=== PATIENT | female | born 1980 | race Caucasian/White ===

== ENCOUNTER 2022-12-04 08:43 | Outpatient (OUT) | payer BC, SELFPAY ==
--- NOTE | 2022-12-04 08:57 | MR_ITS ---
[address] [address] Patient Name: CHAPARRITA BOWERS MRN: [id number] date: 1980 Sex: F Assigned Patient Location: MRI Current Patient Location: MRI Accession/Order Number: [id number] Exam Date: 12/04/2022 09:30 Report Date: 12/04/2022 10:16 At the request of: BERNICE LIM Procedure: MR head/brain wo con EXAM: MRI of the brain without IV contrast. REASON FOR EXAM: Migraine Headache G43.909 COMPARISON: None FINDINGS: No intracranial masses. No abnormal restricted diffusion or evidence of evolving infarct. No evidence of intracranial hemorrhage. No hydrocephalus. No significant abnormal parenchymal signal abnormalities. Partial empty sella. Paranasal sinuses and mastoid air cells are clear. Remainder unremarkable. IMPRESSION: 1. Partial empty sella. 2. Otherwise, normal appearance of the brain. Electronically authenticated by: RAGHU AIKEN Date: 12/04/2022 10:16
== END 2022-12-04 08:44 ==
LOC: MRI 08:48
PROVIDERS: PCP Nurse Practitioner; Visit Provider Nurse Practitioner
DX: G43.909 Migraine, unspecified, not intractable, without status migrainosus (principal)
CPT/HCPCS: 70551

== ENCOUNTER 2023-09-15 21:00 | Outpatient (REF) | payer OTHER, SELFPAY ==
[2023-09-20 10:07] LABS: Age Gdln ACOG Testing Note (.); HPV Aptima Negative (Negative); IGP, Aptima HPV, rfx 16/18,45 Note (.)
== END 2023-09-15 21:01 | disposition home or self-care (01) ==
LOC: LAB 21:00
PROVIDERS: PCP Nurse Practitioner; Visit Provider Obstetrics & Gynecology
DX: Z01.419 Encounter for gynecological examination (general) (routine) without abnormal findings (principal)
CPT/HCPCS: 87624; G0145

== ENCOUNTER 2023-10-23 11:40 | Outpatient (OUT) | payer BC, SELFPAY ==
--- OUTSIDE RECORDS SUMMARY | 2023-10-23 11:42 | XMS_ITS | CCD ---
Author Organization [facility] Care Team Providers Care Lead Java [id number] Developer Name Role Phone AICHHOLZ, CONSUMER LOAN OFFICER BERNICE Primary Care Unavailable ARIA, NISH Consulting Unavailable ARIA, NISH Attending Unavailable ARIA, NISH Admitting Unavailable DEMARIO ., LU Attending Unavailable CURTISER, DR TIM Dunaway Consulting Unavailable AICHHOLZ, CONSUMER LOAN OFFICER BERNICE Primary Care Unavailable DEMARIO ., LU Admitting Unavailable DEMARIO ., LU Consulting Unavailable AICHHOLZ, CONSUMER LOAN OFFICER BERNICE Attending Unavailable AICHHOLZ, CONSUMER LOAN OFFICER BERNICE Admitting Unavailable AICHHOLZ, CONSUMER LOAN OFFICER BERNICE Primary Care Unavailable AICHHOLZ, CONSUMER LOAN OFFICER BERNICE Consulting Unavailable AICHHOLZ, CONSUMER LOAN OFFICER BERNICE Primary Care Unavailable ES ., DR OLMEDO Consulting Unavailable ES ., DR OLMEDO Attending Unavailable ES ., DR OLMEDO Admitting Unavailable AICHHOLZ, CONSUMER LOAN OFFICER BERNICE Primary Care Unavailable ES ., DR OLMEDO Admitting Unavailable ES ., DR OLMEDO Consulting Unavailable ES ., DR OLMEDO Attending Unavailable AICHHOLZ, CONSUMER LOAN OFFICER BERNICE Primary Care Unavailable ES ., DR OLMEDO Admitting Unavailable ES ., DR OLMEDO Consulting Unavailable ES ., DR OLMEDO Attending Unavailable AICHHOLZ, CONSUMER LOAN OFFICER BERNICE Consulting Unavailable AICHHOLZ, CONSUMER LOAN OFFICER BERNICE Attending Unavailable AICHHOLZ, CONSUMER LOAN OFFICER BERNICE Admitting Unavailable AICHHOLZ, CONSUMER LOAN OFFICER BERNICE Primary Care Unavailable ZIEBER, DR TIM Dunaway Consulting Unavailable AICHHOLZ, CONSUMER LOAN OFFICER BERNICE Consulting Unavailable AICHHOLZ, CONSUMER LOAN OFFICER BERNICE Attending Unavailable AICHHOLZ, CONSUMER LOAN OFFICER BERNICE Admitting Unavailable AICHHOLZ, CONSUMER LOAN OFFICER BERNICE Primary Care Unavailable AICHHOLZ, CONSUMER LOAN OFFICER BERNICE Attending Unavailable AICHHOLZ, CONSUMER LOAN OFFICER BERNICE Admitting Unavailable AICHHOLZ, CONSUMER LOAN OFFICER BERNICE Primary Care Unavailable AICHHOLZ, CONSUMER LOAN OFFICER BERNICE Consulting Unavailable AICHHOLZ, CONSUMER LOAN OFFICER BERNICE Attending Unavailable AICHHOLZ, CONSUMER LOAN OFFICER BERNICE Admitting Unavailable AICHHOLZ, CONSUMER LOAN OFFICER BERNICE Primary Care Unavailable AICHHOLZ, CONSUMER LOAN OFFICER BERNICE Consulting Unavailable AICHHOLZ, CONSUMER LOAN OFFICER BERNICE Primary Care Unavailable ES ., DR OLMEDO Admitting Unavailable ES ., DR OLMEDO Consulting Unavailable ES ., DR OLMEDO Attending Unavailable SANTINO CAZARES Consulting Unavailable KWAN II, DESHAUN Consulting Unavailable NICOLE ESCOTO Consulting Unavailable CARINA, BERNICE Attending Unavailable HONORIO SHANE Attending Unavailable Allergies Allergy Classification Reported Allergen(s) Allergy Type Date of Onset Reaction(s) Facility (1 source) Bee pollen Drug allergy (disorder) [facility] (1 source) Penicillins Drug allergy (disorder) 5 [facility] (1 source) Sulfamethoxazole / Trimethoprim Drug Allergy 5 [facility] Problems Active Problems Problem Classification Problem Date Documented Date Episodic/Chronic Abdominal pain (5 sources) Pelvic and perineal pain; Translations: [Unspecified abdominal pain] Onset: 04-30-2022 Episodic Essential hypertension (4 sources) Essential (primary) hypertension; Translations: [ESSENTIAL PRIMARY HYPERTENSION] Onset: 11-27-2022 Chronic Heart valve disorders (1 source) Rheumatic tricuspid insufficiency; Translations: [RHEUMATIC TRICUSPID INSUFFICIENCY] Onset: 12-01-2022 Chronic Inflammatory diseases of female pelvic organs (1 source) Inflammatory disease of cervix uteri; Translations: [INFLAMMATORY DISEASE CERVIX UTERI] Onset: 09-23-2022 Episodic Menstrual disorders (6 sources) Excessive and frequent menstruation with regular cycle; Translations: [Dysmenorrhea, unspecified] Onset: 09-11-2022 Chronic Nonspecific chest pain (1 source) Chest pain, unspecified; Translations: [CHEST PAIN UNSPECIFIED] Onset: 12-01-2022 Episodic Other female genital disorders (1 source) Unspecified dyspareunia; Translations: [UNSPECIFIED DYSPAREUNIA] Onset: 09-23-2022 Chronic Other female genital disorders (1 source) Dysplasia of cervix uteri, unspecified; Translations: [DYSPLASIA CERVIX UTERI UNSPECIFIED] Onset: 09-23-2022 Episodic Other female genital disorders (1 source) Other specified noninflammatory disorders of vagina; Translations: [OTH SPEC NONINFLAMMATORY D/O VAGINA] Onset: 09-12-2022 Episodic Other nutritional; endocrine; and metabolic disorders (1 source) Morbid (severe) obesity due to excess calories; Translations: [MORBID SEVERE OBES D/T EXCESS MISSAEL] Onset: 01-14-2022 Chronic Other nutritional; endocrine; and metabolic disorders (1 source) Body mass index (BMI) 40.0-44.9, adult; Translations: [BODY MASS INDEX BMI 40.0-44.9 ADULT] Onset: 01-14-2022 Chronic Other skin disorders (1 source) Changes in skin texture; Translations: [CHANGES IN SKIN TEXTURE] Onset: 09-23-2022 Episodic Prolapse of female genital organs (1 source) Female genital prolapse, unspecified; Translations: [FEMALE GENITAL PROLAPSE UNSPECIFIED] Onset: 09-12-2022 Chronic Residual codes; unclassified (4 sources) Obstructive sleep apnea (adult) (pediatric); Translations: [OBSTRUCTIVE SLEEP APNEA] Onset: 11-17-2022 Chronic Residual codes; unclassified (1 source) Localized edema; Translations: [LOCALIZED EDEMA] Onset: 12-01-2022 Episodic Past or Other Problems Problem Classification Problem Date Documented Da te Episodic/Chronic Administrative/social admission (4 sources) Encounter for pre-employment examination; Translations: [ENCOUNTER FOR PRE-EMPLOYMENT EXAM] Onset: 07-08-2022 Episodic Bacterial infection; unspecified site (1 source) Personal history of Methicillin resistant Staphylococcus aureus infection; Translations: [PERS HX METHICILLIN RSIST STAPH INF] Onset: 05-04-2022 Episodic Immunizations and screening for infectious disease (1 source) Encounter for screening for human papillomavirus (HPV); Translations: [ENC SCREENING HUMAN PAPILLOMAVIRUS] Onset: 05-23-2022 Episodic Other aftercare (1 source) Other skilled nursing (current) drug therapy; Translations: [OTH CORRECTION CURRENT DRUG THERAPY] Onset: 05-04-2022 Episodic Other female genital disorders (5 sources) Other specified noninflammatory disorders of cervix uteri; Translations: [OTH SPEC NONINFLAMM D/O CERV UTERI] Onset: 05-13-2022 Episodic Other gastrointestinal disorders (1 source) Diarrhea, unspecified; Translations: [DIARRHEA UNSPECIFIED] Onset: 05-04-2022 Episodic Other screening for suspected conditions (not mental disorders or infectious disease) (4 sources) Encounter for screening for malignant neoplasm of cervix; Translations: [ENC SCREENING MALIG NEOPLASM CERV] Onset: 05-21-2022 Episodic Residual codes; unclassified (1 source) Family history of other endocrine, nutritional and metabolic diseases; Translations: [FAM HX OTH ENDOCRN NUTRIT METAB DZ] Onset: 01-14-2022 Episodic Results Test Name Value Interpretation Reference Range Facil ity CBC AUTO DIFFon 11-27-2022 BASO # 0.1 103/ul Normal 0.0-0.1 [facility] Comment on above: Performed By: #### D DIM #### [facility] [address] [address] [address] Tyra oPon Basophils/100 WBC (Bld) 0.9 % Normal 0.2-2.0 [facility] Comment on above: Performed By: #### D DIM #### [facility] [address] [address] [address] Tyra Poon EO # 0.3 103/ul Normal 0.0-0.7 [facility] Comment on above: Performed By: #### D DIM #### [facility] [address] [address] [address] Tyra Poon Eosinophils/100 WBC (Bld) 3.9 % Normal 0.9-7.0 [facility] Comment on above: Performed By: #### D DIM #### [facility] [address] [address] [address] Tyra Poon Erythrocyte distribution width (RBC) [Ratio] 14.1 % Normal 11.0-15.0 [facility] Comment on above: Performed By: #### D DIM #### [facility] [address] [address] [address] Tyra Poon Hematocrit (Bld) [Volume fraction] 33.5 % Critically low 36.0-48.0 [facility] Comment on above: Performed By: #### D DIM #### [facility] [address] [address] [address] Tyra Poon Hemoglobin (Bld) [Mass/Vol] 10.3 g/dL Critically low 12.0-16.0 [facility] Comment on above: Performed By: #### D DIM #### [facility] [address] [address] [address] Tyra Poon IG # 0.03 10e3/ul Normal 0.00-0.03 [facility] Comment on above: Performed By: #### D DIM #### [facility] [address] [address] [address] Tyra Poon IG % 0.4 % Normal 0.0-0.5 [facility] Comment on above: Performed By: #### D DIM #### [facility] [address] [place] [address] Dr. Tyra Poon LYMPH # 2.3 103/ul Normal 1.2-3.8 [facility] Comment on above: Performed By: #### D DIM #### [facility] [address] [place] [address] Dr. Tyra Poon Lymphocytes/100 WBC (Bld) 34.3 % Normal 20.5-60.0 [facility] Comment on above: Performed By: #### D DIM #### [facility] [address] [place] [address] Dr. Tyra Poon MANUAL DIFF REQ NO Normal [facility] Comment on above: Performed By: #### D DIM #### [facility] [address] [place] [address] Dr. Tyra Poon MCH (RBC) [Entitic mass] 25.9 pg Critically low 26.7-34.0 [facility] Comment on above: Performed By: #### D DIM #### [facility] [address] [place] [address] Dr. Tyra Poon MCHC (RBC) [Mass/Vol] 30.7 g/dL Normal 29.9-35.2 [facility] Comment on above: Performed By: #### D DIM #### [facility] [address] [place] [address] Dr. Tyra Poon MCV (RBC) [Entitic vol] 84.4 fL Normal 81.0-99.0 [facility] Comment on above: Performed By: #### D DIM #### [facility] [address] [address] [address] Tyra Poon MONO # 0.5 103/ul Normal 0.3-0.8 [facility] Comment on above: Performed By: #### D DIM #### [facility] [address] [place] [address] Dr. Tyra Poon Monocytes/100 WBC (Bld) 7.2 % Normal 1.7-12.0 [facility] Comment on above: Performed By: #### D DIM #### [facility] [address] [place] [address] Dr. Tyra Poon NEUT # 3.6 103/ul Normal 1.4-6.5 [facility] Comment on above: Performed By: #### D DIM #### [facility] [address] [place] [address] Dr. Tyra Poon Neutrophils/100 WBC (Bld) 53.3 % Normal 43.0-75.0 [facility] Comment on above: Performed By: #### D DIM #### [facility] [address] [place] [address] Dr. Tyra Poon Platelet mean volume (Bld) [Entitic vol] 9.1 fL Critically low 9.5-13.5 [facility] Comment on above: Performed By: #### D DIM #### [facility] [address] [place] [address] Dr. Tyra Poon PLT 325 103/ul Normal 150-450 [facility] Comment on above: Performed By: #### D DIM #### [facility] [address] [place] [address] Dr. Tyra Poon RBC 3.97 106/ul Critically low 4.20-5.40 [facility] Comment on above: Performed By: #### D DIM #### [facility] [address] [place] [address] Dr. Tyra Poon WBC 6.7 103/ul Normal 4.0-11.0 [facility] Comment on above: Performed By: #### D DIM #### [facility] [address] [place] [address] Dr. Tyra Poon D-DIMERon 11-27-2022 D-DIMER 0.36 mg/L FEU Normal <=0.59 [facility] Comment on above: Performed By: #### D DIM #### [facility] [id number] Tyra Poon D-DIMER COMMENTS SEE BELOW Normal [facility] Comment on above: Result Comment: Incr eases in D-Dimer concentration observed with thromboembolic events can be variable due to localization, size, and age of the thrombus. Therefore, a thromboembolic event cannot be diagnosed with certainty on the basis of the reference range. D-Dimers may also be elevated for a variety of disorders including: advanced age, , coronary disease, cancer, liver disease, infection, inflammation, hematoma, DIC, trauma, post-surgery, diabetes, thrombolytic or anticoagulant therapy, stress, and generalized hospitalization. Performed By: #### D DIM #### [facility] [address] [place], [place] [address] Dr. Tyra Poon ECHOCARDIO M/2D COMPLETEon 0 11-27-2022 ECHOCARDIO M/2D COMPLETE Patient: CHAPARRITA BOWERS Exam Date: 11/27/2022 : 1980 Gender:F Ordering : [facility]EL[facility] Admission #: [id number] Family : Order #: [id number] CLICK HERE TO VIEW EXAM ECHOCARDIOGRAM REPORT PROCEDURE: CARDIO PULMONARY ECHOCARDIO M/2D COMP INDICATIONS: Edema, hypertension COMPARISON: None. DESCRIPTION: COMPLETE ECHOCARDIOGRAM Real-time transthoracic echocardiography with 2D, M-mode, spectral and color flow Doppler performed. QUALITY: Technical quality was good. LEFT VENTRICLE: Normal chamber size. Normal left ventricular wall thickness. LV EF: Global left ventricular systolic function is difficult to assess but appears preserved; visually estimated ejection fraction is 60 to 65%. Unable to assess regional wall motion abnormalities. DIASTOLIC: Normal diastolic function. ATRIAL SEPTUM: Inadequately seen. LEFT ATRIUM: Normal chamber size. RIGHT ATRIUM: Normal chamber size. RIGHT VENTRICLE: Normal chamber size. Normal right ventricular systolic function. TRICUSPID VALVE: Normal mobility and thickness. Moderate regurgitation. Doppler studies reveal moderately (45-60) elevated right sided pressures. RVSP 50 mmHg MITRAL VALVE: Normal mobility and thickness. No evidence of mitral valve stenosis. There is no mitral annular calcification. Trivial mitral regurgitation. AORTIC VALVE: Normal trileaflet appearance. No visible sclerosis. Normal leaflet mobility. No evidence of aortic valve stenosis. No aortic regurgitation. AORTIC ROOT: Normal diameter and appearance. PULMONIC VALVE: Normal thickness and mobility. No stenosis. No regurgitation. PERICARDIUM: No evidence of pericardial effusion. IVC: IVC is normal in size, does not fully collapse. CONCLUSION: 1. Global left ventricular systolic function is difficult to assess but appears preserved; visually estimated ejection fraction 60 to 65%. 2. Normal diastolic function. 3. The right ventricle is normal in size and systolic function. 4. Moderate tricuspid regurgitation. 5. Moderately elevated right-sided pressures; RVSP 50 mmHg. Adult Echocardiography Procedure Report Left Ventricle Left Atrium Mitral Valve Right Ventricle Aorta Aortic Valve AoV Area (Peak Slava): 2.39 cm2, 2.39 cm2 Tricuspid Valve Pulmonic Valve Peak Velocity: 1.05 m/s, 0.93 m/s Peak Gradient: 3.47 mm[Hg], 4.39 mm[Hg] Right Atrium Dictated by: Hemant White M.D. on 11/29/2022 at 15:30 Approved by: Hemant White M.D. on 11/29/2022 at 15:33 Normal [facility] FREE T4on 11-27-2022 Free T4 [Mass/Vol] 1.00 ng/dL Normal 0.76-1.46 [facility] Comment on above: Performed By: #### D DIM #### [facility] [address] [place] [address] Dr. Tyra Poon PROF 14(COMP METB)on 023 Albumin [Mass/Vol] 3.1 g/dL Critically low 3.4-5.0 [facility] Comment on above: Performed By: #### T SH, CMP #### [facility] [address] [address] [address] Tyra Poon Albumin/Globulin [Mass ratio] 0.8 {ratio} Normal [facility] Comment on above: Performed By: #### T SH, CMP #### [facility] [address] [address] [address] Tyra Poon ALP [Catalytic activity/Vol] 73 U/L Normal 46-116 [facility] Comment on above: Performed By: #### T SH, CMP #### [facility] [address] [address] [address] Tyra Poon ALT [Catalytic activity/Vol] 17 U/L Normal 14-59 [facility] Comment on above: Performed By: #### T SH, CMP #### [facility] [address] [address] [address] Tyra Poon Anion gap [Moles/Vol] 8.5 mmol/L Normal [facility] Comment on above: Performed By: #### T SH, CMP #### [facility] [address] [address] [address] Tyra Poon AST [Catalytic activity/Vol] 12 U/L Critically low 15-37 [facility] Comment on above: Performed By: #### T SH, CMP #### [facility] [address] [address] [address] Tyra Poon Bilirubin [Mass/Vol] 0.2 mg/dL Normal 0.2-1.0 [facility] Comment on above: Performed By: #### T SH, CMP #### [facility] [address] [address] [address] Tyra Poon Calcium [Mass/Vol] 8.5 mg/dL Normal 8.5-10.1 [facility] Comment on above: Performed By: #### T KRISTINE, CMP #### [facility] [address] [address] [address] Tyra Poon Chloride [Moles/Vol] 101 mmol/L Normal 98-107 [facility] Comment on above: Performed By: #### T SH, CMP #### [facility] [address] [address] [address] Tyra Poon CO2 [Moles/Vol] 32.3 mmol/L Critically high 21.0-32.0 [facility] Comment on above: Performed By: #### T SH, CMP #### [facility] [address] [address] [address] Tyra Poon Creatinine [Mass/Vol] 0.95 mg/dL Normal 0.55-1.02 [facility] Comment on above: Performed By: #### T SH, CMP #### [facility] [address] [address] [address] Tyra Poon EGFR-AF TONGAN >60 Normal >=60 [facility] Comment on above: Performed By: #### T SH, CMP #### [facility] [address] [address] [address] Tyra Poon EGFR-NON AF TONGAN >60 Normal >=60 [facility] Comment on above: Performed By: #### T SH, CMP #### [facility] [address] [address] [address] Tyra Poon Globulin (S) [Mass/Vol] 4.1 g/dL Normal [facility] Comment on above: Performed By: #### T SH, CMP #### [facility] [address] [place] [address] Dr. Tyra Poon Glucose [Mass/Vol] 105 mg/dL Normal 74-106 [facility] Comment on above: Performed By: #### T SH, CMP #### [facility] [address] [place] [address] Dr. Tyra Poon Potassium [Moles/Vol] 3.8 mmol/L Normal 3.5-5.1 [facility] Comment on above: Performed By: #### T SH, CMP #### [facility] [address] [place] [address] Dr. Tyra Poon Protein [Mass/Vol] 7.2 g/dL Normal 6.4-8.2 [facility] Comment on above: Performed By: #### T SH, CMP #### [facility] [address] [address] [address] Tyra Poon Sodium [Moles/Vol] 138 mmol/L Normal 136-145 [facility] Comment on above: Performed By: #### T SH, CMP #### [facility] [address] [address] [address] Tyra Poon Urea nitrogen [Mass/Vol] 14.0 mg/dL Normal 7.0-18.0 [facility] Comment on above: Performed By: #### T SH, CMP #### [facility] [address] [place] [address] Dr. Tyra Poon Urea nitrogen/Creatinin e [Mass ratio] 14.7 mg/mg Normal [facility] Comment on above: Performed By: #### T SH, CMP #### [facility] [address] [place] [address] Dr. Tyra Poon TSHon 11-27-2022 TSH 1.423 uIU/mL Normal 0.358-3.740 [facility] Comment on above: Performed By: #### T SH, CMP #### [facility] [address] [place] [address] Dr. Tyra Poon BUNon 09-12-2022 Urea nitrogen [Mass/Vol] 10.0 mg/dL Normal 7.0-18.0 [facility] Comment on above: Performed By: #### D DIM #### [facility] [address] [place] [address] Dr. Tyra Poon CBC AUTO DIFFon 09-12-2022 BASO # 0.0 103/ul Normal 0.0-0.1 [facility] Comment on above: Performed By: #### P REGQNT #### [facility] [address] [place] [address] Dr. Tyra Poon Basophils/100 WBC (Bld) 0.1 % Critically low 0.2-2.0 [facility] Comment on above: Performed By: #### P REGQNT #### [facility] [address] [place] [address] Dr. Tyra Poon EO # 0.0 103/ul Normal 0.0-0.7 [facility] Comment on above: Performed By: #### P REGQNT #### [facility] [address] [place] [address] Dr. Tyra Poon Eosinophils/100 WBC (Bld) 0.1 % Critically low 0.9-7.0 [facility] Comment on above: Performed By: #### P REGQNT #### [facility] [address] [place] [address] Dr. yTra Poon Erythrocyte distribution width (RBC) [Ratio] 14.9 % Normal 11.0-15.0 [facility] Comment on above: Performed By: #### P REGQNT #### [facility] [address] [place] [address] Dr. Tyra Poon Hematocrit (Bld) [Volume fraction] 30.8 % Critically low 36.0-48.0 [facility] Comment on above: Performed By: #### P REGQNT #### [facility] [address] [place] [address] Dr. Tyra Poon Hemoglobin (Bld) [Mass/Vol] 10.1 g/dL Critically low 12.0-16.0 [facility] Comment on above: Performed By: #### P REGQNT #### [facility] [address] [place] [address] Dr. Tyra Poon IG # 0.14 10e3/ul Critically high 0.00-0.03 [facility] Comment on above: Performed By: #### P REGQNT #### [facility] [address] [place] [address] Dr. Tyra Poon IG % 0.9 % Critically high 0.0-0.5 [facility] Comment on above: Performed By: #### P REGQNT #### [facility] [address] [place] [address] Dr. Tyra Poon LYMPH # 2.2 103/ul Normal 1.2-3.8 [facility] Comment on above: Performed By: #### P REGQNT #### [facility] [address] [place] [address] Dr. Tyra Poon Lymphocytes/100 WBC (Bld) 14.6 % Critically low 20.5-60.0 [facility] Comment on above: Performed By: #### P REGQNT #### [facility] [address] [place] [address] Dr. Tyra Poon MANUAL DIFF REQ NO Normal [facility] Comment on above: Performed By: #### P REGQNT #### [facility] [address] [address] [address] Tyra Poon MCH (RBC) [Entitic mass] 27.3 pg Normal 26.7-34.0 [facility] Comment on above: Performed By: #### P REGQNT #### [facility] [address] [place] [address] Dr. Tyra Poon MCHC (RBC) [Mass/Vol] 32.8 g/dL Normal 29.9-35.2 [facility] Comment on above: Performed By: #### P REGQNT #### [facility] [address] [place] [address] Dr. Tyra Poon MCV (RBC) [Entitic vol] 83.2 fL Normal 81.0-99.0 [facility] Comment on above: Performed By: #### P REGQNT #### [facility] [address] [place] [address] Dr. Tyra Poon MONO # 1.0 103/ul Critically high 0.3-0.8 [facility] Comment on above: Performed By: #### P REGQNT #### [facility] [address] [place] [id number] Dr. Tyra Poon Monocytes/100 WBC (Bld) 6.6 % Normal 1.7-12.0 [facility] Comment on above: Performed By: #### P REGQNT #### [facility] [address] [place] [address] Dr. Tyra Poon NEUT # 11.8 103/ul Critically high 1.4-6.5 [facility] Comment on above: Performed By: #### P REGQNT #### [facility] [address] [place] [address] Dr. Tyra Poon Neutrophils/100 WBC (Bld) 77.7 % Critically high 43.0-75.0 [facility] Comment on above: Performed By: #### P REGQNT #### [facility] [address] [place] [address] Dr. Tyra Poon Platelet mean volume (Bld) [Entitic vol] 9.3 fL Critically low 9.5-13.5 [facility] Comment on above: Performed By: #### P REGQNT #### [facility] [address] [address] [address] Tyra Poon PLT 282 103/ul Normal 150-450 [facility] Comment on above: Performed By: #### P REGQNT #### [facility] [address] [place] [address] Dr. Tyra Poon RBC 3.70 106/ul Critically low 4.20-5.40 [facility] Comment on above: Performed By: #### P REGQNT #### [facility] [address] [place] [address] Dr. Tyra Poon WBC 15.2 103/ul Critically high 4.0-11.0 [facility] Comment on above: Performed By: #### P REGQNT #### [facility] [address] [place] [address] Dr. Tyra Poon BASO # 0.0 103/ul Normal 0.0-0.1 [facility] Comment on above: Performed By: #### C BC #### [facility] [address] [place] [address] Dr. Tyra Poon Basophils/100 WBC (Bld) 0.2 % Normal 0.2-2.0 [facility] Comment on above: Performed By: #### C BC #### [facility] [address] [place] [address] Dr. Tyra Poon EO # 0.0 103/ul Normal 0.0-0.7 [facility] Comment on above: Performed By: #### C BC #### [facility] [address] [place] [address] Dr. Tyra Poon Eosinophils/100 WBC (Bld) 0.0 % Critically low 0.9-7.0 [facility] Comment on above: Performed By: #### C BC #### [facility] [address] [place] [address] Dr. Tyra Poon Erythrocyte distribution width (RBC) [Ratio] 14.6 % Normal 11.0-15.0 [facility] Comment on above: Performed By: #### C BC #### [facility] [address] [place] [address] Dr. Tyra Poon Hematocrit (Bld) [Volume fraction] 34.6 % Critically low 36.0-48.0 [facility] Comment on above: Performed By: #### C BC #### [facility] [address] [place] [address] Dr. Tyra Poon Hemoglobin (Bld) [Mass/Vol] 11.0 g/dL Critically low 12.0-16.0 [facility] Comment on above: Performed By: #### C BC #### [facility] [address] [place] [address] Dr. Tyra Poon IG # 0.28 10e3/ul Critically high 0.00-0.03 [facility] Comment on above: Performed By: #### C BC #### [facility] [address] [place] [address] Dr. Tyra Poon IG % 1.3 % Critically high 0.0-0.5 [facility] Comment on above: Performed By: #### C BC #### [facility] [address] [place] [address] Dr. Tyra Poon LYMPH # 1.9 103/ul Normal 1.2-3.8 [facility] Comment on above: Performed By: #### C BC #### [facility] [address] [place] [address] Dr. Tyra Poon Lymphocytes/100 WBC (Bld) 9.2 % Critically low 20.5-60.0 [facility] Comment on above: Performed By: #### C BC #### [facility] [address] [place] [address] Dr. Tyra Poon MANUAL DIFF REQ NO Normal [facility] Comment on above: Performed By: #### C BC #### [facility] [address] [place] [address] Dr. Tyra Poon MCH (RBC) [Entitic mass] 27.0 pg Normal 26.7-34.0 [facility] Comment on above: Performed By: #### C BC #### [facility] [address] [address] [address] Tyra Poon MCHC (RBC) [Mass/Vol] 31.8 g/dL Normal 29.9-35.2 [facility] Comment on above: Performed By: #### C BC #### [facility] [address] [address] [address] Tyra Poon MCV (RBC) [Entitic vol] 84.8 fL Normal 81.0-99.0 [facility] Comment on above: Performed By: #### C BC #### [facility] [address] [address] [address] Tyra Poon MONO # 1.2 103/ul Critically high 0.3-0.8 [facility] Comment on above: Performed By: #### C BC #### [facility] [address] [address] [address] Tyra Poon Monocytes/100 WBC (Bld) 5.8 % Normal 1.7-12.0 [facility] Comment on above: Performed By: #### C BC #### [facility] [address] [address] [address] Tyra Poon NEUT # 17.7 103/ul Critically high 1.4-6.5 [facility] Comment on above: Performed By: #### C BC #### [facility] [address] [address] [address] Tyra Poon Neutrophils/100 WBC (Bld) 83.5 % Critically high 43.0-75.0 [facility] Comment on above: Performed By: #### C BC #### [facility] [address] [address] [address] Tyra Poon Platelet mean volume (Bld) [Entitic vol] 9.6 fL Normal 9.5-13.5 [facility] Comment on above: Performed By: #### C BC #### [facility] [address] [address] [address] Tyra Poon PLT 367 103/ul Normal 150-450 [facility] Comment on above: Performed By: #### C BC #### [facility] [address] [address] [address] Tyra Poon RBC 4.08 106/ul Critically low 4.20-5.40 [facility] Comment on above: Performed By: #### C BC #### [facility] [address] [place] [address] Dr. Tyra Poon WBC 21.2 103/ul Critically high 4.0-11.0 [facility] Comment on above: Performed By: #### C BC #### [facility] [address] [place] [address] Dr. Tyra Poon CREATININEon 09-12-2022 Creatinine [Mass/Vol] 1.08 mg/dL Critically high 0.55-1.02 [facility] Comment on above: Performed By: #### D DIM #### [facility] [address] [place] [address] Dr. Tyra Poon EGFR-AF TONGAN >60 Normal >=60 [facility] Comment on above: Performed By: #### D DIM #### [facility] [address] [place] [address] Dr. Tyra Poon EGFR-NON AF TONGAN 55 mL/min/1.73m2 Critically low >=60 [facility] Comment on above: Performed By: #### D DIM #### [facility] [address] [place] [address] Dr. Tyra Poon CBC AUTO DIFFon 09-09-2022 BASO # 0.1 103/ul Normal 0.0-0.1 [facility] Comment on above: Performed By: #### U AMIC #### [facility] [address] [place] [address] Dr. Tyra Poon Basophils/100 WBC (Bld) 0.7 % Normal 0.2-2.0 [facility] Comment on above: Performed By: #### U AMIC #### [facility] [address] [place] [address] Dr. Tyra Poon EO # 0.2 103/ul Normal 0.0-0.7 [facility] Comment on above: Performed By: #### U AMIC #### [facility] [address] [address] [address] Tyra Poon Eosinophils/100 WBC (Bld) 2.4 % Normal 0.9-7.0 [facility] Comment on above: Performed By: #### U AMIC #### [facility] [address] [address] [address] Tyra Poon Erythrocyte distribution width (RBC) [Ratio] 14.3 % Normal 11.0-15.0 [facility] Comment on above: Performed By: #### U AMIC #### [facility] [address] [address] [address] Tyra Poon Hematocrit (Bld) [Volume fraction] 33.3 % Critically low 36.0-48.0 [facility] Comment on above: Performed By: #### U AMIC #### [facility] [address] [place] [address] Dr. Tyra Poon Hemoglobin (Bld) [Mass/Vol] 10.8 g/dL Critically low 12.0-16.0 [facility] Comment on above: Performed By: #### U AMIC #### [facility] [address] [place] [address] Dr. Tyra Poon IG # 0.05 10e3/ul Critically high 0.00-0.03 [facility] Comment on above: Performed By: #### U AMIC #### [facility] [address] [place] [address] Dr. Tyra Poon IG % 0.6 % Critically high 0.0-0.5 [facility] Comment on above: Performed By: #### U AMIC #### [facility] [address] [place] [address] Dr. Tyra Poon LYMPH # 3.0 103/ul Normal 1.2-3.8 [facility] Comment on above: Performed By: #### U AMIC #### [facility] [address] [place] [address] Dr. Tyra Poon Lymphocytes/100 WBC (Bld) 33.4 % Normal 20.5-60.0 [facility] Comment on above: Performed By: #### U AMIC #### [facility] [address] [place] [address] Dr. Tyra Poon MANUAL DIFF REQ NO Normal [facility] Comment on above: Performed By: #### U AMIC #### [facility] [address] [place] [address] Dr. Tyra Poon MCH (RBC) [Entitic mass] 27.0 pg Normal 26.7-34.0 [facility] Comment on above: Performed By: #### U AMIC #### [facility] [address] [place] [address] Dr. Tyra Poon MCHC (RBC) [Mass/Vol] 32.4 g/dL Normal 29.9-35.2 [facility] Comment on above: Performed By: #### U AMIC #### [facility] [address] [place] [address] Dr. Tyra Poon MCV (RBC) [Entitic vol] 83.3 fL Normal 81.0-99.0 [facility] Comment on above: Performed By: #### U AMIC #### [facility] [address] [place] [address] Dr. Tyra Poon MONO # 0.6 103/ul Normal 0.3-0.8 [facility] Comment on above: Performed By: #### U AMIC #### [facility] [address] [place] [address] Dr. Tyra Poon Monocytes/100 WBC (Bld) 6.3 % Normal 1.7-12.0 [facility] Comment on above: Performed By: #### U AMIC #### [facility] [address] [place] [address] Dr. Tyra Poon NEUT # 5.0 103/ul Normal 1.4-6.5 [facility] Comment on above: Performed By: #### U AMIC #### [facility] [address] [place] [address] Dr. Tyra Poon Neutrophils/100 WBC (Bld) 56.6 % Normal 43.0-75.0 [facility] Comment on above: Performed By: #### U AMIC #### [facility] [address] [place] [address] Dr. Tyra Poon Platelet mean volume (Bld) [Entitic vol] 9.3 fL Critically low 9.5-13.5 [facility] Comment on above: Performed By: #### U AMIC #### [facility] [address] [place] [address] Dr. Tyra Poon PLT 310 103/ul Normal 150-450 [facility] Comment on above: Performed By: #### U AMIC #### [facility] [address] [place] [address] Dr. Tyra Poon RBC 4.00 106/ul Critically low 4.20-5.40 [facility] Comment on above: Performed By: #### U AMIC #### [facility] [address] [place] [address] Dr. Tyra Poon WBC 8.9 103/ul Normal 4.0-11.0 [facility] Comment on above: Performed By: #### U AMIC #### [facility] [address] [place] [address] Dr. Tyra Poon PREG QUANT HCGon 09-09-2022 HCG QUANT <1 Normal [facility] Comment on above: Performed By: #### P REGQNT #### [facility] [address] [place] [address] Dr. Tyra Poon HCG RANGE SEE BELOW Normal [facility] Comment on above: Result Comment: 5-50 0.2-1 WEEK 50-500 1-2 WEEKS 100-5,000 2-3 WEEKS 500-10,000 3-4 WEEKS 1,000-50,000 4-5 WEEKS 10,000-100,000 5-6 WEEKS 15,000-200,000 6-8 WEEKS 10,000-100,000 2-3 MONTHS Performed By: #### P REGQNT #### [facility] [address] [place] [address] Dr. Tyra Poon TYPE AND SCREENon 09-09-2022 TYPE AND SCREEN Negative Normal [facility] Comment on above: Performed By: #### P REGQNT #### [facility] [address] [place] [address] Dr. Tyra Poon QUANTIFERON TB GOLD PLUSon 0 07-10-2022 QuantiFERON Criteria Comment Normal [facility] Comment on above: Result Comment: Martínez tiFERON-TB Gold Plus is a qualitative indirect test for M tuberculosis infection (including disease) and is intended for use in conjunction with risk assessment, radiography, and other medical and diagnostic evaluations. The QuantiFERON-TB Gold Plus result is determined by subtracting the Nil value from either TB antigen (Ag) value. The Mitogen tube serves as a control for the test. Performed By: #### Q NTTB #### [facility] [address] [place] [address] Dr. Tyra Poon QuantiFERON Incubation Incubation performed. Normal [facility] Comment on above: Performed By: #### Q NTTB #### [facility] [address] [place] [address] Dr. Tyra Poon QuantiFERON Mitogen Value >10.00 Normal [facility] Comment on above: Performed By: #### Q NTTB #### [facility] [address] [place] [address] Dr. Tyra Poon QuantiFERON Nil Value 0.05 IU/mL Normal [facility] Comment on above: Performed By: #### Q NTTB #### [facility] [address] [place] [address] Dr. Tyra Poon QuantiFERON TB1 Ag Value 0.06 IU/mL Normal [facility] Comment on above: Performed By: #### Q NTTB #### [facility] [address] [place] [address] Dr. Tyra Poon QuantiFERON TB2 Ag Value 0.07 IU/mL Normal [facility] Comment on above: Performed By: #### Q NTTB #### [facility] [address] [place] [address] Dr. Tyra Poon QuantiFERON-TB Gold Plus Negative Normal Negative [facility] Comment on above: Result Comment: No r esponse to M tuberculosis antigens detected. Infection with M tuberculosis is unlikely, but high risk individuals should be considered for additional testing (ATS/IDSA/CDC Clinical Practice Guidelines, 2017). The reference range is an Antigen minus Nil result of <0.35 IU/mL. Chemiluminescence immunoassay methodology Performed By: #### Q NTTB #### [facility] [address] [place] [address] Dr. Tyra Poon HEPATITIS B SURFACE ANTIBODY , QUANTon 07-09-2022 Hepatitis B Surf AB Quant <3.1 Critically low Immunity>9.9 [facility] Comment on above: Result Comment: Stat us of Immunity Anti-HBs Level Inconsistent with Immunity 0.0 - 9.9 Consistent with Immunity >9.9 Performed By: #### H EPBSRF #### [facility] [address] [place] [address] Dr. Tyra Poon MMR IMMUNITYon 07-09-2022 Mumps Abs, IgG 142.0 AU/mL Normal Immune >10.9 [facility] Comment on above: Result Comment: Nega tive <9.0 Equivocal 9.0 - 10.9 Positive >10.9 A positive result generally indicates past exposure to Mumps virus or previous vaccination. Performed By: #### P REGQNT #### [facility] [address] [place] [address] Dr. Tyra Poon Rubella Antibodies, IgG 11.90 index Normal Immune >0.99 [facility] Comment on above: Result Comment: Non- immune <0.90 Equivocal 0.90 - 0.99 Immune >0.99 Performed By: #### P REGQNT #### [facility] [address] [place] [address] Dr. Tyra Poon Rubeola Ab, IgG 222.0 AU/mL Normal Immune >16.4 [facility] Comment on above: Result Comment: Nega tive <13.5 Equivocal 13.5 - 16.4 Positive >16.4 Presence of antibodies to Rubeola is presumptive evidence of immunity except when acute infection is suspected. Performed By: #### P REGQNT #### [facility] [address] [place] [address] Dr. Tyra Poon VARICELLA IGG ABon 3 Varicella Zoster IgG 3514 index Normal Immune >165 [facility] Comment on above: Result Comment: Nega tive <135 Equivocal 135 - 165 Positive >165 A positive result generally indicates exposure to the pathogen or administration of specific immunoglobulins, but it is not indication of active infection or stage of disease. Performed By: #### U AMIC #### [facility] [address] [address] [address] Tyra Poon PAP ACOG PANEL 2: 30 to 65on 05-31-2022 . . Normal [facility] Comment on above: Result Comment: Perf ormed at: WB Performed By: #### [id number] #### [facility] [address] [place] [address] Dr. Tyra Poon Age Gdln ACOG Testing 30-65 [facility] Comment on above: Performed By: #### [id number] #### [facility] [address] [place] [address] Dr. Tyra Poon DIAGNOSIS: Comment Normal [facility] Comment on above: Result Comment: NEGA TIVE FOR INTRAEPITHELIAL LESION OR MALIGNANCY. CELLULAR CHANGES ASSOCIATED WITH INFLAMMATION ARE PRESENT. Performed at: WB Performed By: #### [id number] #### [facility] [address] [address] [address] Tyra Poon HPV Aptima Negative Normal Negative [facility] Comment on above: Result Comment: This nucleic acid amplification test detects fourteen high-risk HPV types (16,18,31,33,35,39,45,51,52,56,58,59,66,68) without differentiation. Performed at: =G Performed By: #### [id number] #### [facility] [address] [place] [address] Dr. Tyra Poon HPV Genotype Reflex Comment Normal [facility] Comment on above: Result Comment: Crit eria not met, HPV Genotype not performed. Performed at: WB Performed By: #### [id number] #### [facility] [address] [place] [address] Dr. Tyra Poon Methodology: Comment Normal [facility] Comment on above: Result Comment: This liquid based ThinPrep(R) pap test was screened with the use of an image guided system. Performed at: WB Performed By: #### [id number] #### [facility] [address] [place] [address] Dr. Tyra Poon Note: Comment Normal [facility] Comment on above: Result Comment: The Pap smear is a screening test designed to aid in the detection of premalignant and malignant conditions of the uterine cervix. It is not a diagnostic procedure and should not be used as the sole means of detecting cervical cancer. Both false-positive and false-negative reports do occur. . Performed at: WB Performed By: #### [id number] #### [facility] [address] [place] [address] Dr. Tyra Poon Performed by: Comment Normal [facility] Comment on above: Result Comment: Sharita Watt Script Worker (ASCP) Performed at: WB Performed By: #### [id number] #### [facility] [address] [place] [address] Dr. Tyra Poon Specimen adequacy: Comment Normal [facility] Comment on above: Result Comment: Sati sfactory for evaluation. Endocervical and/or squamous metaplastic cells (endocervical component) are present. Performed at: WB Performed By: #### [id number] #### [facility] [address] [place] [address] Dr. Tyra Poon US PELVIS AND TRANSVAGon US PELVIS AND TRANSVAG EXAMINATION: US PELVIS AND TRANSVAG HISTORY: Noninflammatory cervical disorder COMPARISON: CT abdomen pelvis 04/30/2022 TECHNIQUE: Transabdominal and transvaginal sonographic examination. FINDINGS: UTERUS: Within the cervix is a vascular 1.8 x 1.7 x 1.4 cm mass with adjacent collection of nabothian cysts. Unremarkable uterine body. Uterus size: 10.9 x 4.5 x 5.4 cm ENDOMETRIUM: Normal homogeneous appearance. Endometrial thickness: 10 mm RIGHT OVARY: Normal size and appearance. Duplex Doppler demonstrates normal waveform and flow; resistive index 0.5. Ovary size: 3.8 x 2.0 x 2.5 cm LEFT OVARY: Normal size and appearance. Duplex Doppler demonstrates normal waveform and flow; resistive index 0.5. Ovary size: 2.7 x 2.1 x 1.5 cm CUL-DE-SAC: Unremarkable. No significant free fluid. BLADDER: Unremarkable. OTHER: None. IMPRESSION: 1. Within the cervix is a vascular 1.8 cm mass which is suspicious for neoplasm, corresponds to CT findings. 2. Multiple nabothian cysts are also present within cervix. Electronically authenticated by: TIM PAZ Date: 2022-05-14 09:50 Normal [facility] AMYLASEon 04-30-2022 Amylase [Catalytic activity/Vol] 40 U/L Normal 25-115 [facility] Comment on above: Performed By: #### D DIM #### [facility] [address] [place] [address] Dr. Tyra Poon CBC AUTO DIFFon 04-30-2022 BASO # 0.1 103/ul Normal 0.0-0.1 [facility] Comment on above: Performed By: #### C BC #### [facility] [address] [place] [address] Dr. Tyra Poon Basophils/100 WBC (Bld) 1.3 % Normal 0.2-2.0 [facility] Comment on above: Performed By: #### C BC #### [facility] [address] [place] [address] Dr. Tyra Poon EO # 0.2 103/ul Normal 0.0-0.7 [facility] Comment on above: Performed By: #### C BC #### [facility] [address] [place] [address] Dr. Tyra Poon Eosinophils/100 WBC (Bld) 2.9 % Normal 0.9-7.0 [facility] Comment on above: Performed By: #### C BC #### [facility] [address] [place] [address] Dr. Tyra Poon Erythrocyte distribution width (RBC) [Ratio] 14.4 % Normal 11.0-15.0 [facility] Comment on above: Performed By: #### C BC #### [facility] [address] [place] [address] Dr. Tyra Poon Hematocrit (Bld) [Volume fraction] 36.8 % Normal 36.0-48.0 [facility] Comment on above: Performed By: #### C BC #### [facility] [address] [place] [address] Dr. Tyra Poon Hemoglobin (Bld) [Mass/Vol] 12.0 g/dL Normal 12.0-16.0 [facility] Comment on above: Performed By: #### C BC #### [facility] [address] [address] [address] Tyra Poon IG # 0.05 10e3/ul Critically high 0.00-0.03 [facility] Comment on above: Performed By: #### C BC #### [facility] [address] [place] [address] Dr. Tyra Poon IG % 0.6 % Critically high 0.0-0.5 [facility] Comment on above: Performed By: #### C BC #### [facility] [address] [place] [address] Dr. Tyra Poon LYMPH # 3.3 103/ul Normal 1.2-3.8 [facility] Comment on above: Performed By: #### C BC #### [facility] [address] [place] [address] Dr. Tyra Poon Lymphocytes/100 WBC (Bld) 38.9 % Normal 20.5-60.0 [facility] Comment on above: Performed By: #### C BC #### [facility] [address] [place] [address] Dr. Tyra Poon MANUAL DIFF REQ NO Normal [facility] Comment on above: Performed By: #### C BC #### [facility] [address] [place] [address] Dr. Tyra Poon MCH (RBC) [Entitic mass] 27.0 pg Normal 26.7-34.0 [facility] Comment on above: Performed By: #### C BC #### [facility] [address] [place] [address] Dr. Tyra oPon MCHC (RBC) [Mass/Vol] 32.6 g/dL Normal 29.9-35.2 [facility] Comment on above: Performed By: #### C BC #### [facility] [address] [place] [address] Dr. Tyra Poon MCV (RBC) [Entitic vol] 82.9 fL Normal 81.0-99.0 [facility] Comment on above: Performed By: #### C BC #### [facility] [address] [place] [address] Dr. Tyra Poon MONO # 0.6 103/ul Normal 0.3-0.8 [facility] Comment on above: Performed By: #### C BC #### [facility] [address] [place] [address] Dr. Tyra Poon Monocytes/100 WBC (Bld) 6.7 % Normal 1.7-12.0 [facility] Comment on above: Performed By: #### C BC #### [facility] [address] [place] [address] Dr. Tyra Poon NEUT # 4.2 103/ul Normal 1.4-6.5 [facility] Comment on above: Performed By: #### C BC #### [facility] [address] [place] [address] Dr. Tyra Poon Neutrophils/100 WBC (Bld) 49.6 % Normal 43.0-75.0 [facility] Comment on above: Performed By: #### C BC #### [facility] [address] [place] [address] Dr. Tyra Poon Platelet mean volume (Bld) [Entitic vol] 9.4 fL Critically low 9.5-13.5 [facility] Comment on above: Performed By: #### C BC #### [facility] [address] [place] [address] Dr. Tyra Poon PLT 347 103/ul Normal 150-450 [facility] Comment on above: Performed By: #### C BC #### [facility] [address] [place] [address] Dr. Tyra Poon RBC 4.44 106/ul Normal 4.20-5.40 [facility] Comment on above: Performed By: #### C BC #### [facility] [address] [place], [place] [address] Dr. Tyra Poon WBC 8.4 103/ul Normal 4.0-11.0 [facility] Comment on above: Performed By: #### C BC #### [facility] [address] [place], [place] [address] ABD/PELVIS WO CONon 04-30 CT ABD/PELVIS WO CON EXAMINATION: CT ABD/PELVIS WO CON HISTORY: UNSPECIFIED ABDOMINAL PAIN ; left flank and lower abdominal pain, bloating, diarrhea COMPARISON: No relevant comparison available. TECHNIQUE: Axial, Coronal, and Sagittal images were obtained without and/or with IV contrast as indicated by examination type. Dose reduction techniques were achieved by using automated exposure control and/or adjustment of mA and/or kV according to patient size and/or use of iterative reconstruction technique. FINDINGS: LUNG BASES: No visible pulmonary or pleural disease. LIVER: No enlargement, atrophy, suspicious density, or significant focal lesion. BILIARY: No dilatation or calcification. PANCREAS: No lesion, fluid collection, or abnormal duct dilatation. SPLEEN: No enlargement or focal lesion. ADRENALS: No mass or enlargement. KIDNEYS: Several small nonobstructing stones within left kidney. Projecting posteriorly from mid body of left kidney is a 1.5 cm complex cyst versus low density mass. Unremarkable right kidney and bilateral ureters. BOWEL/MESENTERY: No visible mass, obstruction, or bowel wall thickening. Normal appendix. AORTA/VASCULAR: No aneurysm or dissection. RETROPERITONEUM: No mass or adenopathy. LYMPH NODES: No adenopathy. URINARY BLADDER: No visible focal wall thickening, lesion, or calculus. PELVIC ORGANS: Heterogeneous mass within cervix versus numerous nabothian cysts, 4.3 x 4.1 x 2.3 cm. ABDOMINAL WALL: No mass or hernia. BONES: No bony lesion or fracture. OTHER: Negative. IMPRESSION: 1. Nonobstructing left nephrolithiasis. No findings to suggest recently passed large stone. 2. Unremarkable bowel. 3. No acute findings to account for patient's symptoms. 4. Uterine cervix mass versus large collection of nabothian cysts. Follow-up nonemergent pelvic ultrasound is recommended. Electronically authenticated by: TIM PAZ Date: 2022-04-30 10:10 Normal [facility] ER URINE PROFILEon 2 Bilirubin Ql (U) Negative Normal NEGATIVE [facility] Comment on above: Performed By: #### U AMIC #### [facility] [address] [place] [address] Dr. Tyra Poon Clarity (U) CLEAR Normal CLEAR [facility] Comment on above: Performed By: #### U AMIC #### [facility] [address] [place] [address] [address] Tyra Poon Color (U) YELLOW Normal YELLOW [facility] Comment on above: Performed By: #### U AMIC #### [facility] [address] [place] [address] Dr. Tyra BORREGO A micrscopic examination will be performed if indicated. Normal [facility] Comment on above: Performed By: #### U AMIC #### [facility] [address] [place] [address] [address] Tyra Poon Glucose Ql (U) Negative Normal NEGATIVE [facility] Comment on above: Performed By: #### U AMIC #### [facility] [address] [place] [address] [address] Tyra Poon Hemoglobin Ql (U) Negative Normal NEGATIVE [facility] Comment on above: Performed By: #### U AMIC #### [facility] [address] [place] [address] Dr. Tyra Poon Ketones Ql (U) Negative Normal NEGATIVE [facility] Comment on above: Performed By: #### U AMIC #### [facility] [address] [place] [address] [address] Tyra Poon LEUKOCYTES Negative Normal NEGATIVE [facility] Comment on above: Performed By: #### U AMIC #### [facility] [address] [place] [address] Dr. Tyra Poon Nitrite Ql (U) Negative Normal NEGATIVE [facility] Comment on above: Performed By: #### U AMIC #### [facility] [address] [place] [address] Dr. Tyra Poon pH (U) 6.0 [pH] Normal 5-9 [facility] Comment on above: Performed By: #### U AMIC #### [facility] [address] [place] [address] Dr. Tyra Poon SPEC GRAVITY >=1.030 Abnormal 1.005-<=1.025 [facility] Comment on above: Performed By: #### U AMIC #### [facility] [address] [place] [address] [address] Tyra Poon UA PROTEIN Negative Normal NEGATIVE/ TRACE [facility] Comment on above: Performed By: #### U AMIC #### [facility] [address] [place] [address] [address] Tyra Poon UR MICRO IND NOT INDICATED Normal [facility] Comment on above: Performed By: #### U AMIC #### [facility] [address] [place] [address] Dr. Tyra Poon Urobilinogen Qn (U) 0.2 {[place]'U}/dL Normal 0.2 - 1.0 [facility] Comment on above: Performed By: #### U AMIC #### [facility] [address] [place] [address] Dr. Tyra Poon LIPASEon 04-30-2022 Lipase [Catalytic activity/Vol] 83.0 U/L Normal 73.0-393.0 [facility] Comment on above: Performed By: #### D DIM #### [facility] [address] [place] [address] Dr. Tyra Poon URon 04-30-2022 , QUAL Negative Normal NEGATIVE [facility] Comment on above: Performed By: #### U AMIC #### [facility] [address] [place] [address] [address] Tyra Poon PROF 14(COMP METB)on 022 Albumin [Mass/Vol] 3.6 g/dL Normal 3.4-5.0 [facility] Comment on above: Performed By: #### D DIM #### [facility] [address] [place] [address] Dr. Tyra Poon Albumin/Globulin [Mass ratio] 0.8 {ratio} Normal [facility] Comment on above: Performed By: #### D DIM #### [facility] [address] [place] [address] [address] Tyra Poon ALP [Catalytic activity/Vol] 65 U/L Normal 46-116 [facility] Comment on above: Performed By: #### D DIM #### [facility] [address] [place] [address] [address] Tyra Poon ALT [Catalytic activity/Vol] 13 U/L Critically low 14-59 [facility] Comment on above: Performed By: #### D DIM #### [facility] [address] [place] [address] Dr. Tyra Poon Anion gap [Moles/Vol] 12.5 mmol/L Normal [facility] Comment on above: Performed By: #### D DIM #### [facility] [address] [place] [address] Dr. Tyra Poon AST [Catalytic activity/Vol] 12 U/L Critically low 15-37 [facility] Comment on above: Performed By: #### D DIM #### [facility] [address] [place] [address] Dr. Tyra Poon Bilirubin [Mass/Vol] 0.3 mg/dL Normal 0.2-1.0 [facility] Comment on above: Performed By: #### D DIM #### [facility] [address] [place] [address] Dr. Tyra Poon Calcium [Mass/Vol] 8.8 mg/dL Normal 8.5-10.1 [facility] Comment on above: Performed By: #### D DIM #### [facility] [address] [place] [address] [address] Tyra Poon Chloride [Moles/Vol] 103 mmol/L Normal 98-107 [facility] Comment on above: Performed By: #### D DIM #### [facility] [address] [place] [address] Dr. Tyra Poon CO2 [Moles/Vol] 26.3 mmol/L Normal 21.0-32.0 [facility] Comment on above: Performed By: #### D DIM #### [facility] [address] [place] [address] [address] Tyra Poon Creatinine [Mass/Vol] 0.87 mg/dL Normal 0.55-1.02 [facility] Comment on above: Performed By: #### D DIM #### [facility] [address] [place] [address] [address] Tyra Poon EGFR-AF TONGAN >60 Normal >=60 [facility] Comment on above: Performed By: #### D DIM #### [facility] [address] [place] [address] [address] Tyra Poon EGFR-NON AF TONGAN >60 Normal >=60 [facility] Comment on above: Performed By: #### D DIM #### [facility] [address] [place] [address] [address] Tyra Poon Globulin (S) [Mass/Vol] 4.3 g/dL Normal [facility] Comment on above: Performed By: #### D DIM #### [facility] [address] [place] [address] [address] Tyra Poon Glucose [Mass/Vol] 120 mg/dL Critically high 74-106 [facility] Comment on above: Performed By: #### D DIM #### [facility] [address] [place] [address] [address] Tyra Poon Potassium [Moles/Vol] 3.8 mmol/L Normal 3.5-5.1 [facility] Comment on above: Performed By: #### D DIM #### [facility] [address] [place] [address] [address] Tyra Poon Protein [Mass/Vol] 7.9 g/dL Normal 6.4-8.2 [facility] Comment on above: Performed By: #### D DIM #### [facility] [address] [place] [address] [address] Tyra Poon Sodium [Moles/Vol] 138 mmol/L Normal 136-145 [facility] Comment on above: Performed By: #### D DIM #### [facility] [address] [place] [address] [address] Tyra Poon Urea nitrogen [Mass/Vol] 11.0 mg/dL Normal 7.0-18.0 [facility] Comment on above: Performed By: #### D DIM #### [facility] [address] [place] [address] Dr. Tyra Poon Urea nitrogen/Creatinin e [Mass ratio] 12.6 mg/mg Normal [facility] Comment on above: Performed By: #### D DIM #### [facility] [address] [place] [address] Dr. Tyra Poon CBC AUTO DIFFon 01-12-2022 BASO # 0.1 103/ul Normal 0.0-0.1 [facility] Comment on above: Performed By: #### D DIM #### [facility] [address] [place] [address] Dr. Tyra Poon Basophils/100 WBC (Bld) 0.9 % Normal 0.2-2.0 [facility] Comment on above: Performed By: #### D DIM #### [facility] [address] [place] [address] Dr. Tyra Poon EO # 0.2 103/ul Normal 0.0-0.7 [facility] Comment on above: Performed By: #### D DIM #### [facility] [address] [place] [address] Dr. Tyra Poon Eosinophils/100 WBC (Bld) 2.2 % Normal 0.9-7.0 [facility] Comment on above: Performed By: #### D DIM #### [facility] [address] [place] [address] Dr. Tyra Poon Erythrocyte distribution width (RBC) [Ratio] 14.0 % Normal 11.0-15.0 [facility] Comment on above: Performed By: #### D DIM #### [facility] [address] [place] [address] Dr. Tyra Poon Hematocrit (Bld) [Volume fraction] 34.1 % Critically low 36.0-48.0 [facility] Comment on above: Performed By: #### D DIM #### [facility] [address] [place] [address] [address] Tyra Poon Hemoglobin (Bld) [Mass/Vol] 10.7 g/dL Critically low 12.0-16.0 [facility] Comment on above: Performed By: #### D DIM #### [facility] [address] [place] [address] [address] Tyra Poon IG # 0.05 10e3/ul Critically high 0.00-0.03 [facility] Comment on above: Performed By: #### D DIM #### [facility] [address] [place] [address] [address] Tyra Poon IG % 0.6 % Critically high 0.0-0.5 [facility] Comment on above: Performed By: #### D DIM #### [facility] [address] [place] [address] [address] Tyra Poon LYMPH # 2.6 103/ul Normal 1.2-3.8 [facility] Comment on above: Performed By: #### D DIM #### [facility] [address] [place] [address] [address] Tyra Poon Lymphocytes/100 WBC (Bld) 31.8 % Normal 20.5-60.0 [facility] Comment on above: Performed By: #### D DIM #### [facility] [address] [place] [address] [address] Tyra Poon MANUAL DIFF REQ NO Normal [facility] Comment on above: Performed By: #### D DIM #### [facility] [address] [place] [address] [address] Tyra Poon MCH (RBC) [Entitic mass] 26.6 pg Critically low 26.7-34.0 [facility] Comment on above: Performed By: #### D DIM #### [facility] [address] [place] [address] [address] Tyra Poon MCHC (RBC) [Mass/Vol] 31.4 g/dL Normal 29.9-35.2 [facility] Comment on above: Performed By: #### D DIM #### [facility] [address] [place] [address] [address] Tyra Poon MCV (RBC) [Entitic vol] 84.8 fL Normal 81.0-99.0 [facility] Comment on above: Performed By: #### D DIM #### [facility] [address] [place] [address] [address] Tyra Poon MONO # 0.5 103/ul Normal 0.3-0.8 [facility] Comment on above: Performed By: #### D DIM #### [facility] [address] [place] [address] Dr. Trya Poon Monocytes/100 WBC (Bld) 6.4 % Normal 1.7-12.0 [facility] Comment on above: Performed By: #### D DIM #### [facility] [address] [place] [address] Dr. Tyra Poon NEUT # 4.7 103/ul Normal 1.4-6.5 [facility] Comment on above: Performed By: #### D DIM #### [facility] [address] [place] [address] Dr. Tyra Poon Neutrophils/100 WBC (Bld) 58.1 % Normal 43.0-75.0 [facility] Comment on above: Performed By: #### D DIM #### [facility] [address] [place] [address] Dr. Tyra Poon Platelet mean volume (Bld) [Entitic vol] 9.7 fL Normal 9.5-13.5 [facility] Comment on above: Performed By: #### D DIM #### [facility] [address] [place] [address] Dr. Tyra Poon PLT 318 103/ul Normal 150-450 [facility] Comment on above: Performed By: #### D DIM #### [facility] [address] [place], [place] [id number] Dr. Tyra Poon RBC 4.02 106/ul Critically low 4.20-5.40 [facility] Comment on above: Performed By: #### D DIM #### [facility] [address] [place] [address] Dr. Tyra Poon WBC 8.0 103/ul Normal 4.0-11.0 [facility] Comment on above: Performed By: #### D DIM #### [facility] [address] [place] [address] Dr. Tyra Poon FERRITINon 01-12-2022 Ferritin [Mass/Vol] 12.0 ng/mL Normal 6.2-137.0 [facility] Comment on above: Performed By: #### D DIM #### [facility] [address] [place] [address] Dr. Tyra Poon FREE T4on 01-12-2022 Free T4 [Mass/Vol] 1.04 ng/dL Normal 0.76-1.46 [facility] Comment on above: Performed By: #### P REGQNT #### [facility] [address] [place] [address] Dr. Tyra Poon IRONon 01-12-2022 Iron [Mass/Vol] 32.0 ug/dL Critically low 50.0-170.[address] [facility] Comment on above: Performed By: #### D DIM #### [facility] [address] [place] [address] Dr. Tyra Poon LIPID PROFILEon 01-12-2022 CHOL-HDL RATIO NORM SEE BELOW Normal [facility] Comment on above: Result Comment: 3.3 - 4.4 LOW RISK 4.4 - 7.1 AVERAGE RISK 7.1 - 11.0 MODERATE RISK >11.0 HIGH RISK Performed By: #### U AMIC #### [facility] [address] [place] [address] Dr. Tyra Poon Cholesterol [Mass/Vol] 236 mg/dL Critically high <=200 [facility] Comment on above: Performed By: #### U AMIC #### [facility] [address] [place] [address] Dr. Tyra Poon Cholesterol in HDL [Mass/Vol] 65 mg/dL Critically high 40-60 [facility] Comment on above: Performed By: #### U AMIC #### [facility] [address] [place] [address] Dr. Tyra Poon Cholesterol in LDL [Mass/Vol] 149.8 mg/dL Normal [facility] Comment on above: Performed By: #### U AMIC #### [facility] [address] [place] [address] [address] Tyra Poon Cholesterol.total/ Cholesterol in HDL [Mass ratio] 3.6 {ratio} Normal [facility] Comment on above: Performed By: #### U AMIC #### [facility] [address] [place] [address] [address] Tyra Poon HDL NORMAL > or = 60 mg/dl - LO W CARDIOVASCULAR RISK <40 mg/dl - HIGH CARDIOVASCULAR RISK Normal [facility] Comment on above: Performed By: #### U AMIC #### [facility] [address] [place] [address] [address] Tyra Poon LDL CALC NORMAL SEE BELOW Normal [facility] Comment on above: Result Comment: <100 mg/dl OPTIMAL 100 - 129 mg/dl NEAR OR ABOVE OPTIMAL 130 - 159 mg/dl BORDERLINE HIGH 160 - 189 mg/dl HIGH >190 mg/dl VERY HIGH Performed By: #### U AMIC #### [facility] [address] [place] [address] [address] Tyra Poon Triglyceride [Mass/Vol] 106 mg/dL Normal <=150 [facility] Comment on above: Performed By: #### U AMIC #### [facility] [address] [place] [address] [address] Tyra Poon VLDL CALC 21.2 mg/dL Normal [facility] Comment on above: Performed By: #### U AMIC #### [facility] [address] [place] [address] [address] Tyra Poon PROF 14(COMP METB)on 022 Albumin [Mass/Vol] 3.4 g/dL Normal 3.4-5.0 [facility] Comment on above: Performed By: #### U AMIC #### [facility] [address] [place] [address] [address] Tyra Poon Albumin/Globulin [Mass ratio] 0.8 {ratio} Normal [facility] Comment on above: Performed By: #### U AMIC #### [facility] [address] [place] [address] [address] Tyra Poon ALP [Catalytic activity/Vol] 63 U/L Normal 46-116 [facility] Comment on above: Performed By: #### U AMIC #### [facility] [address] [place] [address] [address] Tyra Poon ALT [Catalytic activity/Vol] 24 U/L Normal 14-59 [facility] Comment on above: Performed By: #### U AMIC #### [facility] [address] [place] [address] [address] Tyra Poon Anion gap [Moles/Vol] 10.4 mmol/L Normal [facility] Comment on above: Performed By: #### U AMIC #### [facility] [address] [place] [address] [address] Tyra Poon AST [Catalytic activity/Vol] 14 U/L Critically low 15-37 [facility] Comment on above: Performed By: #### U AMIC #### [facility] [address] [place] [address] [address] Tyra Poon Bilirubin [Mass/Vol] 0.3 mg/dL Normal 0.2-1.0 [facility] Comment on above: Performed By: #### U AMIC #### [facility] [address] [place] [address] [address] Tyra Poon Calcium [Mass/Vol] 8.7 mg/dL Normal 8.5-10.1 [facility] Comment on above: Performed By: #### U AMIC #### [facility] [address] [place] [address] [address] Tyra Poon Chloride [Moles/Vol] 101 mmol/L Normal 98-107 [facility] Comment on above: Performed By: #### U AMIC #### [facility] [address] [address] [address] Tyra Poon CO2 [Moles/Vol] 29.8 mmol/L Normal 21.0-32.0 [facility] Comment on above: Performed By: #### U AMIC #### [facility] [address] [place] [address] [address] Tyra Poon Creatinine [Mass/Vol] 0.89 mg/dL Normal 0.55-1.02 [facility] Comment on above: Performed By: #### U AMIC #### [facility] [address] [address] [address] Tyra Poon EGFR-AF TONGAN >60 Normal >=60 [facility] Comment on above: Performed By: #### U AMIC #### [facility] [address] [address] [address] Tyra Poon EGFR-NON AF TONGAN >60 Normal >=60 [facility] Comment on above: Performed By: #### U AMIC #### [facility] [address] [address] [address] Tyra Poon Globulin (S) [Mass/Vol] 4.3 g/dL Normal [facility] Comment on above: Performed By: #### U AMIC #### [facility] [address] [address] [address] Tyra Poon Glucose [Mass/Vol] 107 mg/dL Critically high 74-106 [facility] Comment on above: Performed By: #### U AMIC #### [facility] [address] [address] [address] Tyra Poon Potassium [Moles/Vol] 4.2 mmol/L Normal 3.5-5.1 [facility] Comment on above: Performed By: #### U AMIC #### [facility] [address] [place] [address] [address] Tyra Poon Protein [Mass/Vol] 7.7 g/dL Normal 6.4-8.2 [facility] Comment on above: Performed By: #### U AMIC #### [facility] [address] [address] [address] Tyra Poon Sodium [Moles/Vol] 137 mmol/L Normal 136-145 [facility] Comment on above: Performed By: #### U AMIC #### [facility] [address] [address] [address] Tyra Poon Urea nitrogen [Mass/Vol] 15.0 mg/dL Normal 7.0-18.0 [facility] Comment on above: Performed By: #### U AMIC #### [facility] [address] [place] [address] Dr. Tyra Poon Urea nitrogen/Creatinin e [Mass ratio] 16.9 mg/mg Normal [facility] Comment on above: Performed By: #### U AMIC #### [facility] [address] [place] [address] Dr. Tyra Poon TSHon 01-12-2022 TSH 2.550 uIU/mL Normal 0.358-3.740 [facility] Comment on above: Performed By: #### U AMIC #### [facility] [address] [place] [address] Dr. Tyra Poon UA RANDOM W/MICROSCOPICon BACTERIA NONE SEEN Normal NONE SEEN [facility] Comment on above: Performed By: #### U AMIC #### [facility] [address] [place] [address] Dr. Tyra Poon Bilirubin Ql (U) Negative Normal NEGATIVE [facility] Comment on above: Performed By: #### U AMIC #### [facility] [address] [place] [address] Dr. Tyra Poon CAST NONE SEEN Normal NONE SEEN [facility] Comment on above: Performed By: #### U AMIC #### [facility] [address] [place] [address] Dr. Tyra Poon Clarity (U) CLEAR Normal CLEAR [facility] Comment on above: Performed By: #### U AMIC #### [facility] [address] [place] [address] Dr. Tyra Poon Color (U) YELLOW Normal YELLOW [facility] Comment on above: Performed By: #### U AMIC #### [facility] [address] [place] [address] Dr. Tyra Poon Crystals LM Nom (Urine sed) NONE SEEN Normal NONE SEEN [facility] Comment on above: Performed By: #### U AMIC #### [facility] [address] [address] [address] Tyra Poon Epithelial cells LM Ql (Urine sed) RARE Normal NONE SEEN /RARE [facility] Comment on above: Performed By: #### U AMIC #### [facility] [address] [place] [address] Dr. Tyra Poon Glucose Ql (U) Negative Normal NEGATIVE The [facility] Comment on above: Performed By: #### U AMIC #### [facility] [address] [address] [address] Tyra Poon Hemoglobin Ql (U) MODERATE Abnormal NEGATIVE [facility] Comment on above: Performed By: #### U AMIC #### [facility] [address] [place] [address] Dr. Tyra Poon Ketones Ql (U) Negative Normal NEGATIVE The [facility] Comment on above: Performed By: #### U AMIC #### [facility] [address] [place] [address] Dr. Tyra Poon LEUKOCYTES Negative Normal NEGATIVE [facility] Comment on above: Performed By: #### U AMIC #### [facility] [address] [place] [address] Dr. Tyra Poon MUCOUS NONE SEEN Normal NONE SEEN [facility] Comment on above: Performed By: #### U AMIC #### [facility] [address] [place] [address] Dr. Tyra Poon Nitrite Ql (U) Negative Normal NEGATIVE The [facility] Comment on above: Performed By: #### U AMIC #### [facility] [address] [place] [address] Dr. Tyra Poon pH (U) 6.0 [pH] Normal 5-9 [facility] Comment on above: Performed By: #### U AMIC #### [facility] [address] [place] [address] Dr. Tyra Poon RBC 0-2 Normal 0-2 [facility] Comment on above: Performed By: #### U AMIC #### [facility] [address] [place] [address] Dr. Tyra Poon SPEC GRAVITY 1.025 Normal 1.005-<=1.025 [facility] Comment on above: Performed By: #### U AMIC #### [facility] [address] [address] [address] Tyra Poon UA PROTEIN Negative Normal NEGATIVE/ TRACE [facility] Comment on above: Performed By: #### U AMIC #### [facility] [address] [address] [address] Tyra Poon Urobilinogen Qn (U) 0.2 {[place]'U}/dL Normal 0.2 - 1.0 [facility] Comment on above: Performed By: #### U AMIC #### [facility] [address] [address] [address] Tyra Poon WBC NONE SEEN Normal NONE SEEN [facility] Comment on above: Performed By: #### U AMIC #### [facility] [address] [address] [address] Tyra Poon Encounters Encounter Date Encounter Type Care Provider Facility Start: 09-15-2023 End: 09-15-2023 ambulatory HONORIO SHANE Not Available Start: 08-02-2023 End: 08-02-2023 ambulatory BERNICE CARINA Not Available Start: 11-27-2022 End: 11-28-2022 ambulatory [employer] BERNICE AICHHOLZ Facility:[facility] Start: 11-17-2022 End: 11-18-2022 ambulatory [employer] BERNICE AICHARELIZ Facility:[facility] Start: 09-12-2022 Encounter for prepro cedural laboratory examination DR HONORIO SHANE . [facility] Start: 09-11-2022 End: 09-12-2022 ambulatory [employer] BERNICE AICHHOLZ Facility:[facility] Start: 09-09-2022 End: 09-10-2022 ambulatory [employer] BERNICE AICHHOLZ Facility:[facility] Start: 09-09-2022 End: 09-10-2022 Encounter for preprocedural laboratory examination [employer] BERNICE AICHHOLZ Facility:[facility] Start: 09-02-2022 Encounter for prepro cedural cardiovascular examination DR HONORIO SHANE . [facility] Start: 08-28-2022 End: 08-29-2022 ambulatory [employer] BERNICE AICHHOLZ Facility:[facility] Start: 08-28-2022 End: 08-29-2022 Encounter for preprocedural cardiovascular examination EVANGELINA LIM Facility:[facility] Start: 07-08-2022 End: 07-09-2022 ambulatory EVANGELINA LIM Facility:[facility] Start: 05-21-2022 End: 05-21-2022 ambulatory EVANGELINA LIM Facility:[facility] Start: 05-13-2022 End: 05-14-2022 ambulatory EVANGELINA LIM Facility:[facility] Start: 04-30-2022 End: 04-30-2022 ambulatory LU Menard Facility:[facility] Start: 01-12-2022 End: 01-13-2022 ambulatory EVANGELINA LIM Facility:[facility] Payers Date Payer Category Payer Unknown [id number] 2022 Unknown [id number] 1980 Unknown [id number] 2.16.84 [id number] 1979 Unknown [id number] 2..84 [id number] 1979 Unknown [id number] ..[id number] 1979 Unknown [id number] .16.84 [id number] 1979 Unknown [id number] .16.84 [id number] 1979 Unknown [id number] ..[id number] [id number] 1979 Unknown [id number] .16.84 [id number] 1979 Unknown [id number] .16.84 [id number] 1979 Unknown [id number] .16.84 [id number] 1979 Unknown [id number] 2.16.84 [id number] 1979 Unknown [id number] 2.16.84 [id number] 1979 Unknown [id number] 2.16.84 [id number] 1959 Private Health Insurance [id number] 1960 Self-pay Unknown [id number] 2.16.84 [id number] Clinical Note 09-11-2022 Note Date & Type Note Facility 09-11-2022 Note OP Note OPERATION DATE: 09/11/2022 PROCEDURE: Robotic assisted laparoscopic hysterectomy with bilateral salpingectomy with cystoscopy. PREOPERATIVE DIAGNOSIS: Cervical dysplasia, history of abnormal cervical cells, menorrhagia, dyspareunia, dysmenorrhea. POSTOPERATIVE DIAGNOSIS: Cervical dysplasia, history of abnormal cervical cells, menorrhagia, dyspareunia, dysmenorrhea. ANESTHESIA: General. SURGEON: Honorio Shane D.O. MEDICAL LIBRARY ASSISTANT: JOSH Gonzales URINE OUTPUT: Yellow and clear. BLOOD LOSS: 150 mL. SPECIMEN: Uterus, tubes and cervix. URINE OUTPUT: Yellow and clear. PROCEDURE: The patient was taken back to the operating room, where she was prepped and draped in the normal sterile fashion after being placed in the dorsal lithotomy position. Patient's anesthesia was found to be adequate. Surgical timeout was performed using two patient identifiers. SCDs were on and in place. Two grams of Ancef were given prior to the surgery. Sterile Rodriguez catheter was inserted. Standard size VCare was secured to the uterine cervix and the surgeon changed gloves. Attention then was turned to the patient's abdomen, where a supraumbilical incision was then made. Two S retractors were used to identify the patient's fascia. The fascia was then tented up using Cari clamps and the patient's fascia was incised sharply. Patient's abdomen was identified and entered bluntly. The patient had the trocar placed and a pneumoperitoneum was obtained. Approximately 4 liters of CO2 gas was used. The camera was then placed through the trocar. At this time, two robot trocars were placed in the patient's left and right side, two hand widths from the midline, and this was placed under direct visualization. The patient's tube on the right side was tended up and the vessel sealer was then used to come across the mesosalpinx, and this was carried down to the uterine ovarian ligament. The vessel sealer was carried down serially to the broad ligament, to the area of the bladder flap, which was then created anteriorly, and the uterine arteries were skeletonized and sealed using the vessel sealer. The colpotomy was made using the monopolar cautery on cut, and this was carried circumferentially, posteriorly to anteriorly, until the uterus was amputated. The specimen was then removed intact through the vagina, without difficulty. The vagina was then closed using two running V-Loc in a non-lock fashion. The robot was undocked. The abdomen was desufflated. The skin defects were closed using 4-0 Vicryl. Please note, the fascia was closed using 0 Vicryl. Sponge, lap and needle counts were correct x2. Patient was taken to recovery room in stable condition. The patient was awakened by Anesthesia first. Patient tolerated procedure well. [facility] Discharge summary note 09-11-2022 Note Date & Type Note Facility 09-11-2022 Note DISCHARGE SUMMARY NOTE DATE: 09/12/2022 PRIMARY DIAGNOSES: 1. Mass of cervix. 2. Menorrhagia. 3. Dysmenorrhea. 4. Dyspareunia. 5. Enlarged cervix. PROCEDURE: Robotic assisted laparoscopic hysterectomy with bilateral salpingectomy with cystoscopy. HOSPITAL COURSE: As expected. Please see chart for full details. LABORATORY DATA: Please see chart. COMPLICATIONS: None. DISCHARGE CONDITION: Stable. CONSULTATION: Anesthesia. DISCHARGE INSTRUCTIONS: 1. Diet: Regular. 2. Medications: a. Percocet 5/325 one to two p.o. every 4-6 hours p.r.n. pain. b. Motrin 800 one p.o. every 8 hours p.r.n. pain. 3. Followup in one week. Restrictions: Pelvic rest for 6 weeks. No heavy lifting. May drive when pain free and no longer on narcotics. [facility] Clinical Note 09-11-2022 Note Date & Type Note Facility 09-11-2022 Note OPERATIVE NOTE OPERATION DATE: 09/12/2022 PROCEDURE: Robotic assisted laparoscopic hysterectomy with bilateral salpingectomy with cystoscopy. PREOPERATIVE DIAGNOSIS: Cervical dysplasia, history of abnormal cervical cells, menorrhagia, dyspareunia, dysmenorrhea. POSTOPERATIVE DIAGNOSIS: Cervical dysplasia, history of abnormal cervical cells, menorrhagia, dyspareunia, dysmenorrhea. ANESTHESIA: General. SURGEON: Honorio Shane D.O. MEDICAL LIBRARY ASSISTANT: JOSH Gonzales URINE OUTPUT: Yellow and clear. BLOOD LOSS: 150 mL. SPECIMEN: Uterus, tubes and cervix. URINE OUTPUT: Yellow and clear. PROCEDURE: The patient was taken back to the operating room, where she was prepped and draped in the normal sterile fashion after being placed in the dorsal lithotomy position. Patient's anesthesia was found to be adequate. Surgical timeout was performed using two patient identifiers. SCDs were on and in place. Two grams of Ancef were given prior to the surgery. Sterile Rodriguez catheter was inserted. Standard size VCare was secured to the uterine cervix and the surgeon changed gloves. Attention then was turned to the patient's abdomen, where a supraumbilical incision was then made. Two S retractors were used to identify the patient's fascia. The fascia was then tented up using Cari clamps and the patient's fascia was incised sharply. Patient's abdomen was identified and entered bluntly. The patient had the trocar placed and a pneumoperitoneum was obtained. Approximately 4 liters of CO2 gas was used. The camera was then placed through the trocar. At this time, two robot trocars were placed in the patient's left and right side, two hand widths from the midline, and this was placed under direct visualization. The patient's tube on the right side was tended up and the vessel sealer was then used to come across the mesosalpinx, and this was carried down to the uterine ovarian ligament. The vessel sealer was carried down serially to the broad ligament, to the area of the bladder flap, which was then created anteriorly, and the uterine arteries were skeletonized and sealed using the vessel sealer. The colpotomy was made using the monopolar cautery on cut, and this was carried circumferentially, posteriorly to anteriorly, until the uterus was amputated. The specimen was then removed intact through the vagina, without difficulty. The vagina was then closed using two running V-Loc in a non-lock fashion. The robot was undocked. The abdomen was desufflated. The skin defects were closed using 4-0 Vicryl. Please note, the fascia was closed using 0 Vicryl. Sponge, lap and needle counts were correct x2. Patient was taken to recovery room in stable condition. The patient was awakened by Anesthesia first. Patient tolerated procedure well. [facility] Summary Purpose Family History No Family History Records FoundNo Family History Records Found Advance Directives No Advanced Directives Records FoundNo Advanced Directives Records Found Additional Source Comments INFORMATION SOURCE (unrecogn ized section and content) DATE CREATED AUTHOR 12/11/2022 [facility] DATE CREATED AUTHOR 'S ORGANIZ ATION 09/16/2023 [facility] FOR RECORDS PERTAINING TO PATIENTS WHO ARE OR HAVE BEEN ENROLLED IN A CHEMICAL DEPENDENCY/SUBSTANCEABUSE PROGRAM, SOME INFORMATION MAY BE OMITTED. This clinical summary was aggregated from multiple sources. Caution should be exercised in using it in the provision of clinical care. This summary normalizes information from multiple sources, and as a consequence, information in this document may materially change the coding, format and clinical context of patient data. In addition, data may be omitted in some cases. CLINICAL DECISIONS SHOULD BE BASED ON THE PRIMARY CLINICAL RECORDS. [employer] provides no warranty or guarantee of the accuracy or completeness of information in this document.
[2023-10-23 13:04] LABS: Estimated Average Glucose 131 mg/dL; Glycohemoglobin A1C 6.2 % (4.5-6.2)
[2023-10-23 13:07] LABS: Microalbumin Urine Random <1.3 mg/dL (<=30.0)
[2023-10-23 13:13] LABS: Alanine Aminotransferase 22 U/L (14-59); Albumin Globulin Ratio 0.8; Albumin Level 3.3 g/dL (3.4-5.0); Alkaline Phosphatase 65 U/L (46-116); Anion Gap 12.1; Aspartate Amino Transferase 13 U/L (15-37); BUN Creatinine Ratio 17.6; Bilirubin Total 0.4 mg/dL (0.2-1.0); Calcium 9.1 mg/dL (8.5-10.1); Carbon Dioxide 29.5 mmol/L (21.0-32.0); Chloride 100 mmol/L (98-107); Chol HDL Ratio 4.3; Cholesterol 253 mg/dL (<=200); Estimated GFR (African America >60 (>=60); Estimated GFR (Non-African Ame >60 (>=60); Globulin 4.1 g/dL; Glucose 90 mg/dL (74-106); HDL Cholesterol 59 mg/dL (40-60); Potassium 3.6 mmol/L (3.5-5.1); Sodium 138 mmol/L (136-145); Total Protein 7.4 g/dL (6.4-8.2); Triglycerides 170 mg/dL (<=150)
[2023-10-23 13:50] LABS: Basophils Absolute Auto 0.1 10^3/uL (0.0-0.1); Basophils Percent Auto 1.1 % (0.2-2.0); Eosinophils Absolute Auto 0.5 10^3/uL (0.0-0.7); Eosinophils Percent Auto 5.4 % (0.9-7.0); Hematocrit 35.2 % (36.0-48.0); Hemoglobin 11.2 g/dL (12.0-16.0); Immature Granulocytes Abs Auto 0.02 10^3/uL (0.00-0.03); Immature Granulocytes Pct Auto 0.2 % (0.0-0.5); Lymphocytes Absolute Auto 3.4 10^3/uL (1.2-3.8); Lymphocytes Percent Auto 40.4 % (20.5-60.0); Mean Corpuscular HGB Conc 31.8 g/dL (29.9-35.2); Mean Corpuscular Hemoglobin 26.3 pg (26.7-34.0); Mean Corpuscular Volume 82.6 fL (81.0-99.0); Monocytes Absolute Auto 0.6 10^3/uL (0.3-0.8); Monocytes Percent Auto 7.2 % (1.7-12.0); Neutrophils Absolute Auto 3.8 10^3/uL (1.4-6.5); Neutrophils Percent Auto 45.7 % (43.0-75.0); Platelet Count 323 10^3/uL (150-450); Red Blood Count 4.26 10^6/uL (4.20-5.40); Red Cell Distribution Width 15.2 % (11.0-15.0); White Blood Count 8.3 10^3/uL (4.0-11.0)
[2023-10-23 14:12] LABS: Bilirubin Urine NEGATIVE (NEGATIVE); Blood Urine NEGATIVE (NEGATIVE); Clarity Urine CLEAR (CLEAR); Color Urine YELLOW (YELLOW); Glucose Urine UA NEGATIVE (NEGATIVE); Ketones Urine NEGATIVE (NEGATIVE); Leukocyte Esterase Urine NEGATIVE (NEGATIVE); Nitrite Urine NEGATIVE (NEGATIVE); Protein Urine NEGATIVE (NEG/TRACE); Specific Gravity Urine 1.025 (1.005-1.025); Urobilinogen Urine 0.2 EU/dL (0.2-1.0)
[2023-10-23 14:14] LABS: Urine Microscopic Indicated NO
== END 2023-10-23 11:41 | disposition home or self-care (01) ==
LOC: LAB 11:40
PROVIDERS: PCP Nurse Practitioner; Visit Provider Nurse Practitioner
DX: E78.2 Mixed hyperlipidemia (principal); I10 Essential (primary) hypertension; R73.09 Other abnormal glucose
CPT/HCPCS: 36415; 80053; 80061; 81003; 82043; 83036; 85025

== ENCOUNTER 2023-11-12 13:09 | Outpatient (OUT) | payer BC, SELFPAY ==
--- NOTE | 2023-11-12 13:11 | MM_ITS ---
Patient Name: CHAPARRITA BOWERS MR#: [id number] : 1980 Exam Date: 11/12/2023 Ordering Doctor: DR Phil Shane . RADIOLOGY REPORT PROCEDURE: MM TOMOSYNTHESIS SCREENING BI COMPARISON: None. INDICATIONS: screening Calculator Name NCI Breast Cancer Risk Assessment Tool 5 Year Breast Cancer Risk 0.90% Lifetime Breast Cancer Risk 10.70% Personal Breast Cancer No Personal Ovarian Cancer No Treatments None Family Cancers Father with colon cancer at age 75; Father with throat cancer at age 69. LOCATION: [facility] BREAST COMPOSITION: There are scattered areas of fibroglandular density. FINDINGS: DIAGNOSTIC CATEGORY 1--NEGATIVE. NO CHANGE FROM COMPARISON ASSESSMENT. Scattered benign-appearing calcifications are present. Scattered benign-appearing lymph nodes are present. RIGHT BREAST: No significant suspicious finding. LEFT BREAST: No significant suspicious finding. RECOMMENDATIONS: ROUTINE MAMMOGRAM AND CLINICAL EVALUATION IN 12 MONTHS. PLEASE NOTE: A NORMAL MAMMOGRAM DOES NOT EXCLUDE THE POSSIBILITY OF BREAST CANCER. A CLINICALLY SUSPICIOUS PALPABLE LUMP SHOULD BE BIOPSIED. Dictated by: Bismark Clay MD on 11/15/2023 at 09:47 Approved by: Bismark Clay MD on 11/15/2023 at 09:48
== END 2023-11-12 13:10 | disposition home or self-care (01) ==
LOC: MAMMO 13:09
PROVIDERS: PCP Nurse Practitioner; Visit Provider Obstetrics & Gynecology
DX: Z12.31 Encounter for screening mammogram for malignant neoplasm of breast (principal); Z80.0 Family history of malignant neoplasm of digestive organs; Z80.8 Family history of malignant neoplasm of other organs or systems
CPT/HCPCS: 77063; 77067

== ENCOUNTER 2024-02-25 11:47 | Outpatient (OUT) | payer BC, SELFPAY ==
--- OUTSIDE RECORDS SUMMARY | 2024-02-25 12:00 | XMS_ITS | CCD ---
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 Role Phone AICHHOLZ, ASSISTANT CORPORATION COUNSEL BERNICE Primary Care Unavailable ARIA, NISH Consulting Unavailable ARIA, NISH Attending Unavailable ARIA, NISH Admitting Unavailable DEMARIO ., LU Attending Unavailable BRANDI, DR TIM Dunaway Consulting Unavailable AICHHOLZ, ASSISTANT [employer]PORATION COUNSEL BERNICE Primary Care Unavailable DEMARIO ., LU Admitting Unavailable DEMARIO ., LU Consulting Unavailable AICHHOLZ, ASSISTANT CORPORATION COUNSEL BERNICE Attending Unavailable AICHHOLZ, ASSISTANT CORPORATION COUNSEL BERNICE Admitting Unavailable AICHHOLZ, ASSISTANT CORPORATION COUNSEL BERNICE Primary Care Unavailable AICHHOLZ, ASSISTANT CORPORATION COUNSEL BERNICE Consulting Unavailable AICHHOLZ, ASSISTANT CORPORATION COUNSEL BERNICE Primary Care Unavailable ES ., DR OLMEDO Consulting Unavailable ES ., DR OLMEDO Attending Unavailable ES ., DR OLMEDO Admitting Unavailable AICHHOLZ, ASSISTANT CORPORATION COUNSEL BERNICE Primary Care Unavailable ES ., DR OLMEDO Admitting Unavailable ES ., DR OLMEDO Consulting Unavailable ES ., DR OLMEDO Attending Unavailable AICHHOLZ, ASSISTANT CORPORATION COUNSEL BERNICE Primary Care Unavailable ES ., DR OLMEDO Admitting Unavailable ES ., DR OLMEDO Consulting Unavailable ES ., DR OLMEDO Attending Unavailable AICHHOLZ, ASSISTANT CORPORATION COUNSEL BERNICE Consulting Unavailable AICHHOLZ, ASSISTANT CORPORATION COUNSEL BERNICE Attending Unavailable AICHHOLZ, ASSISTANT CORPORATION COUNSEL BERNICE Admitting Unavailable AICHHOLZ, ASSISTANT [employer]PORATION COUNSEL BERNICE Primary Care Unavailable BRANDI, DR TIM Dunaway Consulting Unavailable AICHHOLZ, ASSISTANT [employer]PORATION COUNSEL BERNICE Consulting Unavailable AICHHOLZ, ASSISTANT CORPORATION COUNSEL BERNICE Attending Unavailable AICHHOLZ, ASSISTANT CORPORATION COUNSEL BERNICE Admitting Unavailable AICHHOLZ, ASSISTANT CORPORATION COUNSEL BERNICE Primary Care Unavailable AICHHOLZ, ASSISTANT CORPORATION COUNSEL BERNICE Attending Unavailable AICHHOLZ, ASSISTANT CORPORATION COUNSEL BERNICE Admitting Unavailable AICHHOLZ, ASSISTANT CORPORATION COUNSEL BERNICE Primary Care Unavailable AICHHOLZ, ASSISTANT [employer]PORATION COUNSEL BERNICE Consulting Unavailable AICHHOLZ, ASSISTANT CORPORATION COUNSEL BERNICE Attending Unavailable AICHHOLZ, ASSISTANT CORPORATION COUNSEL BERNICE Admitting Unavailable AICHHOLZ, ASSISTANT [employer]PORATION COUNSEL BERNICE Primary Care Unavailable AICHHOLZ, ASSISTANT CORPORATION COUNSEL BERNICE Consulting Unavailable AICHHOLZ, ASSISTANT [employer]PORATION COUNSEL BERNICE Primary Care Unavailable ES ., DR OLMEDO Admitting Unavailable ES ., DR OLMEDO Consulting Unavailable ES ., DR OLMEDO Attending Unavailable SANTINO CAZARES Consulting Unavailable KWAN IIDESHAUN Consulting Unavailable NICOLE ESCOTO Consulting Unavailable AICHHOLZ, BERNICE Attending Unavailable HONORIO SHANE Attending Unavailable AICHHOLZ, BERNICE Attending Unavailable AICHHOLZ, BERNICE Attending Unavailable AICHHOLZ, BERNICE Attending Unavailable JONATAN LAIRD Attending Unavailable Allergies Allergy Classification Reported Allergen(s) Allergy Type Date of Onset Reaction(s) Facility (1 source) Bee pollen Drug allergy (disorder) [facility] (1 source) Penicillins Drug allergy (disorder) 5 [facility] (1 source) Sulfamethoxazole / Trimethoprim Drug Allergy 5 [facility] Problems Active Problems Problem Classification Problem [...] skilled nursing (current) drug therapy; 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 Tyra Poon Basophils/100 WBC (Bld) 0.9 % Normal 0.2-2.0 [facility] Comment on above: Performed By: #### D DIM #### [facility] [address] [place] [address] Dr. Tyra Poon EO # 0.3 103/ul Normal 0.0-0.7 [facility] Comment on above: Performed By: #### D DIM #### [facility] [address] [place] [address] Dr. Tyra Poon Eosinophils/100 WBC (Bld) 3.9 % Normal 0.9-7.0 [facility] Comment on above: Performed By: #### D DIM #### [facility] [address] [address] [address] Tyra Poon Erythrocyte distribution width (RBC) [Ratio] 14.1 % Normal 11.0-15.0 [facility] Comment on above: Performed By: #### D DIM #### [facility] [address] [place] [address] Dr. Tyra Poon Hematocrit (Bld) [Volume fraction] 33.5 % Critically low 36.0-48.0 [facility] Comment on above: Performed By: #### D DIM #### [facility] [address] [place] [address] Dr. Tyra Poon Hemoglobin (Bld) [Mass/Vol] 10.3 g/dL Critically low 12.0-16.0 [facility] Comment on above: Performed By: #### D DIM #### [facility] [address] [place] [address] Dr. Tyra Poon IG # 0.03 10e3/ul Normal 0.00-0.03 [facility] Comment on above: Performed By: #### D DIM #### [facility] [address] [place] [address] Dr. Tyra Poon IG % 0.4 % Normal 0.0-0.5 [facility] Comment on above: Performed By: #### D DIM #### [facility] [address] [place] [address] Dr. Tyra Poon LYMPH # 2.3 103/ul Normal 1.2-3.8 [facility] Comment on above: Performed By: #### D DIM #### [facility] [address] [place] [address] Dr. Tyra Poon Lymphocytes/100 WBC (Bld) 34.3 % Normal 20.5-60.0 [facility] Comment on above: Performed By: #### D DIM #### [facility] [address] [place] [address] Dr. Tyra Poon MANUAL DIFF REQ NO Normal [facility] Comment on above: Performed By: #### D DIM #### [facility] [address] [place] [address] Dr. Tyra Poon MCH (RBC) [Entitic mass] 25.9 pg Critically low 26.7-34.0 [facility] Comment on above: Performed By: #### D DIM #### [facility] [address] [place] [address] Dr. Tyra Poon MCHC (RBC) [Mass/Vol] 30.7 g/dL Normal 29.9-35.2 [facility] Comment on above: Performed By: #### D DIM #### [facility] [address] [place] [address] Dr. Tyra Poon MCV (RBC) [Entitic vol] 84.4 fL Normal 81.0-99.0 [facility] Comment on above: Performed By: #### D DIM #### [facility] [address] [place] [address] Dr. Tyra Poon MONO # 0.5 103/ul Normal 0.3-0.8 [facility] Comment on above: Performed By: #### D DIM #### [facility] [address] [place] [address] Dr. Tyra Poon Monocytes/100 WBC (Bld) 7.2 % Normal 1.7-12.0 [facility] Comment on above: Performed By: #### D DIM #### [facility] [address] [place] [address] Dr. Tyra Poon NEUT # 3.6 103/ul Normal 1.4-6.5 [facility] Comment on above: Performed By: #### D DIM #### [facility] [address] [place] [address] Dr. Tyra Poon Neutrophils/100 WBC (Bld) 53.3 % Normal 43.0-75.0 [facility] Comment on above: Performed By: #### D DIM #### [facility] [address] [place] [address] Dr. Tyra Poon Platelet mean volume (Bld) [Entitic vol] 9.1 fL Critically low 9.5-13.5 [facility] Comment on above: Performed By: #### D DIM #### [facility] [address] [place] [address] Dr. Tyra Poon PLT 325 103/ul Normal 150-450 [facility] Comment on above: Performed By: #### D DIM #### [facility] [address] [place] [address] Dr. Tyra Poon RBC 3.97 106/ul Critically low 4.20-5.40 [facility] Comment on above: Performed By: #### D DIM #### [facility] [address] [place] [address] Dr. Tyra Poon WBC 6.7 103/ul Normal 4.0-11.0 [facility] Comment on above: Performed By: #### D DIM #### [facility] [address], [place] [address] Dr. Tyra Poon D-DIMERon 11-27-2022 D-DIMER 0.36 mg/L FEU Normal <=0.59 [facility] Comment on above: Performed By: #### D DIM #### [facility] [address] [address] [address] Tyra Poon D-DIMER COMMENTS SEE BELOW Normal [facility] Comment on above: Result Comment: Incr eases [...] hospitalization. Performed By: #### D DIM #### [facility] [address] [place], [place] [address] Dr. Tyra Poon ECHOCARDIO M/2D COMPLETEon 0 11-27-2022 ECHOCARDIO M/2D COMPLETE Patient: CHAPARRITA BOWERS Exam Date: 11/27/2022 : 1980 Gender:F Ordering : EVANGELINA LIM [facility] Admission #: [id number] Family : Order #: [id number] CLICK HERE TO VIEW EXAM ECHOCARDIOGRAM REPORT [...] White M.D. on 11/29/2022 at 15:33 Normal [facility] FREE T4on 11-27-2022 Free T4 [Mass/Vol] 1.00 ng/dL Normal 0.76-1.[address] [facility] Comment on above: Performed By: #### D DIM #### [facility] [address] [place] [address] Dr. Tyra Poon PROF 14(COMP METB)on 023 Albumin [Mass/Vol] 3.1 g/dL Critically low 3.4-5.0 [facility] Comment on above: Performed By: #### T KRISTINE, CMP #### [facility] [address] [place], [place] [address] Dr. Tyra Poon Albumin/Globulin [Mass ratio] 0.8 {ratio} Normal [facility] Comment on above: Performed By: #### T KRISTINE, CMP #### [facility] [address] [address] [address] Tyra Poon ALP [Catalytic activity/Vol] 73 U/L Normal 46-116 [facility] Comment on above: Performed By: #### T SH, CMP #### [facility] [address] [address] [address] Tyra Poon ALT [Catalytic activity/Vol] 17 U/L Normal 14-59 [facility] Comment on above: Performed By: #### T SH, CMP #### [facility] [address] [address] [address] Tyra Poon Anion gap [Moles/Vol] 8.5 mmol/L Normal [facility] Comment on above: Performed By: #### T SH, CMP #### [facility] [address] [place] [address] Dr. Tyra Poon AST [Catalytic activity/Vol] 12 U/L Critically low 15-37 [facility] Comment on above: Performed By: #### T SH, CMP #### [facility] [address] [address] [address] Tyra Poon Bilirubin [Mass/Vol] 0.2 mg/dL Normal 0.2-1.0 [facility] Comment on above: Performed By: #### T SH, CMP #### [facility] [address] [place] [address] Dr. Tyra Poon Calcium [Mass/Vol] 8.5 mg/dL Normal 8.5-10.[address] [facility] Comment on above: Performed By: #### T SH, CMP #### [facility] [address] [address] [address] Tyra Poon Chloride [Moles/Vol] 101 mmol/L Normal 98-107 [facility] Comment on above: Performed By: #### T SH, CMP #### [facility] [address] [address] [address] Tyra Poon CO2 [Moles/Vol] 32.3 mmol/L Critically high 21.0-32.0 [facility] Comment on above: Performed By: #### T SH, CMP #### [facility] [address] [address] [address] Tyra Poon Creatinine [Mass/Vol] 0.95 mg/dL Normal 0.55-1.02 [facility] Comment on above: Performed By: #### T SH, CMP #### [facility] [address] [address] [address] Tyra Poon EGFR-AF FRENCH >60 Normal >=60 [facility] Comment on above: Performed By: #### T SH, CMP #### [facility] [address] [address] [address] Tyra Poon EGFR-NON AF FRENCH >60 Normal >=60 [facility] Comment on above: Performed By: #### T SH, CMP #### [facility] [address] [place] [address] Dr. Tyra Poon Globulin (S) [Mass/Vol] 4.1 g/dL Normal [facility] Comment on above: Performed By: #### T SH, CMP #### [facility] [address] [place] [address] Dr. Tyra Poon Glucose [Mass/Vol] 105 mg/dL Normal 74-106 [facility] Comment on above: Performed By: #### T SH, CMP #### [facility] [address] [place] [address] Dr. Tyra Poon Potassium [Moles/Vol] 3.8 mmol/L Normal 3.5-5.1 [facility] Comment on above: Performed By: #### T SH, CMP #### [facility] [address] [place] [address] Dr. Tyra Poon Protein [Mass/Vol] 7.2 g/dL Normal 6.4-8.2 [facility] Comment on above: Performed By: #### T SH, CMP #### [facility] [address] [place] [address] Dr. Tyra Poon Sodium [Moles/Vol] 138 mmol/L Normal 136-145 [facility] Comment on above: Performed By: #### T SH, CMP #### [facility] [address] [place] [address] Dr. Tyra Poon Urea nitrogen [Mass/Vol] 14.0 mg/dL Normal 7.0-18.0 [facility] Comment on above: Performed By: #### T SH, CMP #### [facility] [address] [place] [address] Dr. Tyra Poon Urea nitrogen/Creatinin e [Mass ratio] 14.7 mg/mg Normal [facility] Comment on above: Performed By: #### T SH, CMP #### [facility] [address] [place] [address] Dr. Tyra Poon TSHon 11-27-2022 TSH 1.423 uIU/mL Normal 0.358-3.740 [facility] Comment on above: Performed By: #### T SH, CMP #### [facility] [address] [place] [address] Dr. Tyra Poon BUNon 09-12-2022 Urea nitrogen [Mass/Vol] 10.0 mg/dL Normal 7.0-18.0 [facility] Comment on above: Performed By: #### D DIM #### [facility] [address] [place] [address] Dr. Tyra Poon CBC AUTO DIFFon 09-12-2022 BASO # 0.0 103/ul Normal 0.0-0.1 [facility] Comment on above: Performed By: #### P REGQNT #### [facility] [address] [place] [address] Dr. Tyra Poon Basophils/100 WBC (Bld) 0.1 % Critically low 0.2-2.0 [facility] Comment on above: Performed By: #### P REGQNT #### [facility] [address] [place] [address] Dr. Tyra Poon EO # 0.0 103/ul Normal 0.0-0.7 [facility] Comment on above: Performed By: #### P REGQNT #### [facility] [address] [place] [address] Dr. Tyra Poon Eosinophils/100 WBC (Bld) 0.1 % Critically low 0.9-7.0 [facility] Comment on above: Performed By: #### P REGQNT #### [facility] [address] [place] [address] Dr. Tyra Poon Erythrocyte distribution width (RBC) [Ratio] 14.9 % Normal 11.0-15.0 [facility] Comment on above: Performed By: #### P REGQNT #### [facility] [address] [place] [address] Dr. Tyra Poon Hematocrit (Bld) [Volume fraction] 30.8 % Critically low 36.0-48.0 [facility] Comment on above: Performed By: #### P REGQNT #### [facility] [address] [place] [address] Dr. Tyra Poon Hemoglobin (Bld) [Mass/Vol] 10.1 g/dL Critically low 12.0-16.0 [facility] Comment on above: Performed By: #### P REGQNT #### [facility] [address] [place] [address] Dr. Tyra Poon IG # 0.14 10e3/ul Critically high 0.00-0.03 [facility] Comment on above: Performed By: #### P REGQNT #### [facility] [address] [place] [address] Dr. Tyra Poon IG % 0.9 % Critically high 0.0-0.5 [facility] Comment on above: Performed By: #### P REGQNT #### [facility] [address] [place] [address] Dr. Tyra Poon LYMPH # 2.2 103/ul Normal 1.2-3.8 [facility] Comment on above: Performed By: #### P REGQNT #### [facility] [address] [place] [address] Dr. Tyra Poon Lymphocytes/100 WBC (Bld) 14.6 % Critically low 20.5-60.0 [facility] Comment on above: Performed By: #### P REGQNT #### [facility] [address] [place], [place] [id number] Dr. Tyra Poon MANUAL DIFF REQ NO Normal [facility] Comment on above: Performed By: #### P REGQNT #### [facility] [address] [place] [address] Dr. Tyra Poon MCH (RBC) [Entitic mass] 27.3 pg Normal 26.7-34.0 [facility] Comment on above: Performed By: #### P REGQNT #### [facility] [address] [place] [address] Dr. Tyra Poon MCHC (RBC) [Mass/Vol] 32.8 g/dL Normal 29.9-35.2 [facility] Comment on above: Performed By: #### P REGQNT #### [facility] [address] [place] [address] Dr. Tyra Poon MCV (RBC) [Entitic vol] 83.2 fL Normal 81.0-99.0 [facility] Comment on above: Performed By: #### P REGQNT #### [facility] [address] [place] [address] Dr. Tyra Poon MONO # 1.0 103/ul Critically high 0.3-0.8 [facility] Comment on above: Performed By: #### P REGQNT #### [facility] [address] [place] [address] Dr. Tyra Poon Monocytes/100 WBC (Bld) 6.6 % Normal 1.7-12.0 [facility] Comment on above: Performed By: #### P REGQNT #### [facility] [address] [place] [address] Dr. Tyra Poon NEUT # 11.8 103/ul Critically high 1.4-6.5 [facility] Comment on above: Performed By: #### P REGQNT #### [facility] [address] [place] [address] Dr. Tyra Poon Neutrophils/100 WBC (Bld) 77.7 % Critically high 43.0-75.0 [facility] Comment on above: Performed By: #### P REGQNT #### [facility] [address] [address] [address] Tyra Poon Platelet mean volume (Bld) [Entitic vol] 9.3 fL Critically low 9.5-13.5 [facility] Comment on above: Performed By: #### P REGQNT #### [facility] [address] [address] [address] Tyra Poon PLT 282 103/ul Normal 150-450 [facility] Comment on above: Performed By: #### P REGQNT #### [facility] [address] [address] [address] Tyra Poon RBC 3.70 106/ul Critically low 4.20-5.40 [facility] Comment on above: Performed By: #### P REGQNT #### [facility] [address] [place] [address] Dr. Tyra Poon WBC 15.2 103/ul Critically high 4.0-11.0 [facility] Comment on above: Performed By: #### P REGQNT #### [facility] [address] [place] [address] Dr. Tyra Poon BASO # 0.0 103/ul Normal 0.0-0.1 [facility] Comment on above: Performed By: #### C BC #### [facility] [address] [place] [address] Dr. Tyra Poon Basophils/100 WBC (Bld) 0.2 % Normal 0.2-2.0 [facility] Comment on above: Performed By: #### C BC #### [facility] [address] [place] [address] Dr. Tyra Poon EO # 0.0 103/ul Normal 0.0-0.7 [facility] Comment on above: Performed By: #### C BC #### [facility] [address] [place] [address] Dr. Tyra Poon Eosinophils/100 WBC (Bld) 0.0 % Critically low 0.9-7.0 [facility] Comment on above: Performed By: #### C BC #### [facility] [address] [place] [address] Dr. Tyra Poon Erythrocyte distribution width (RBC) [Ratio] 14.6 % Normal 11.0-15.0 [facility] Comment on above: Performed By: #### C BC #### [facility] [address] [place] [address] Dr. Tyra Poon Hematocrit (Bld) [Volume fraction] 34.6 % Critically low 36.0-48.0 [facility] Comment on above: Performed By: #### C BC #### [facility] [address] [place] [address] Dr. Tyra Poon Hemoglobin (Bld) [Mass/Vol] 11.0 g/dL Critically low 12.0-16.0 [facility] Comment on above: Performed By: #### C BC #### [facility] [address] [place] [address] Dr. Tyra Poon IG # 0.28 10e3/ul Critically high 0.00-0.03 [facility] Comment on above: Performed By: #### C BC #### [facility] [address] [place] [address] Dr. Tyra Poon IG % 1.3 % Critically high 0.0-0.5 [facility] Comment on above: Performed By: #### C BC #### [facility] [address] [place] [address] Dr. Tyra Poon LYMPH # 1.9 103/ul Normal 1.2-3.8 [facility] Comment on above: Performed By: #### C BC #### [facility] [address] [place] [address] Dr. Tyra Poon Lymphocytes/100 WBC (Bld) 9.2 % Critically low 20.5-60.0 [facility] Comment on above: Performed By: #### C BC #### [facility] [address] [place] [address] Dr. Tyra Poon MANUAL DIFF REQ NO Normal [facility] Comment on above: Performed By: #### C BC #### [facility] [address] [place] [address] Dr. Tyra Poon MCH (RBC) [Entitic mass] 27.0 pg Normal 26.7-34.0 [facility] Comment on above: Performed By: #### C BC #### [facility] [address] [place] [address] Dr. Tyra Poon MCHC (RBC) [Mass/Vol] 31.8 g/dL Normal 29.9-35.2 [facility] Comment on above: Performed By: #### C BC #### [facility] [address] [address] [address] Tyra Poon MCV (RBC) [Entitic vol] 84.8 fL Normal 81.0-99.0 [facility] Comment on above: Performed By: #### C BC #### [facility] [address] [place] [address] Dr. Tyra Poon MONO # 1.2 103/ul Critically high 0.3-0.8 [facility] Comment on above: Performed By: #### C BC #### [facility] [address] [place] [address] Dr. Tyra Poon Monocytes/100 WBC (Bld) 5.8 % Normal 1.7-12.0 [facility] Comment on above: Performed By: #### C BC #### [facility] [address] [place] [address] Dr. Tyra Poon NEUT # 17.7 103/ul Critically high 1.4-6.5 [facility] Comment on above: Performed By: #### C BC #### [facility] [address] [place] [address] Dr. Tyra Poon Neutrophils/100 WBC (Bld) 83.5 % Critically high 43.0-75.0 [facility] Comment on above: Performed By: #### C BC #### [facility] [facility] [address] [place] [address] Dr. Tyra Poon Platelet mean volume (Bld) [Entitic vol] 9.6 fL Normal 9.5-13.5 [facility] Comment on above: Performed By: #### C BC #### [facility] [address] [place] [address] Dr. Tyra Poon PLT 367 103/ul Normal 150-450 [facility] Comment on above: Performed By: #### C BC #### [facility] [address] [place] [address] Dr. Tyra Poon RBC 4.08 106/ul Critically low 4.20-5.40 [facility] Comment on above: Performed By: #### C BC #### [facility] [address] [place] [address] Dr. Tyra Poon WBC 21.2 103/ul Critically high 4.0-11.0 [facility] Comment on above: Performed By: #### C BC #### [facility] [address] [place] [address] Dr. Tyra Poon CREATININEon 09-12-2022 Creatinine [Mass/Vol] 1.08 mg/dL Critically high 0.55-1.02 [facility] Comment on above: Performed By: #### D DIM #### [facility] [address] [place] [address] Dr. Tyra Poon EGFR-AF FRENCH >60 Normal >=60 [facility] Comment on above: Performed By: #### D DIM #### [facility] [address] [place] [address] Dr. Tyra Poon EGFR-NON AF FRENCH 55 mL/min/1.73m2 Critically low >=60 [facility] Comment on above: Performed By: #### D DIM #### [facility] [address] [place] [address] Dr. Tyra Poon CBC AUTO DIFFon 09-09-2022 BASO # 0.1 103/ul Normal 0.0-0.1 [facility] Comment on above: Performed By: #### U AMIC #### [facility] [address] [place] [address] Dr. Tyra Poon Basophils/100 WBC (Bld) 0.7 % Normal 0.2-2.0 [facility] Comment on above: Performed By: #### U AMIC #### [facility] [address] [place] [address] Dr. Tyra Poon EO # 0.2 103/ul Normal 0.0-0.7 [facility] Comment on above: Performed By: #### U AMIC #### [facility] [address] [address] [address] Tyra Poon Eosinophils/100 WBC (Bld) 2.4 % Normal 0.9-7.0 [facility] Comment on above: Performed By: #### U AMIC #### [facility] [address] [address] [address] Tyra Poon Erythrocyte distribution width (RBC) [Ratio] 14.3 % Normal 11.0-15.0 [facility] Comment on above: Performed By: #### U AMIC #### [facility] [address] [place] [address] Dr. Tyra Poon Hematocrit (Bld) [Volume fraction] 33.3 % Critically low 36.0-48.0 [facility] Comment on above: Performed By: #### U AMIC #### [facility] [address] [place] [address] Dr. Tyra Poon Hemoglobin (Bld) [Mass/Vol] 10.8 g/dL Critically low 12.0-16.0 [facility] Comment on above: Performed By: #### U AMIC #### [facility] [address] [place] [address] Dr. Tyra Poon IG # 0.05 10e3/ul Critically high 0.00-0.03 [facility] Comment on above: Performed By: #### U AMIC #### [facility] [address] [place] [address] Dr. Tyra Poon IG % 0.6 % Critically high 0.0-0.5 [facility] Comment on above: Performed By: #### U AMIC #### [facility] [address] [place] [address] Dr. Tyra Poon LYMPH # 3.0 103/ul Normal 1.2-3.8 [facility] Comment on above: Performed By: #### U AMIC #### [facility] [address] [address] [address] Tyra Poon Lymphocytes/100 WBC (Bld) 33.4 % Normal 20.5-60.0 [facility] Comment on above: Performed By: #### U AMIC #### [facility] [address] [place] [address] Dr. Tyra Poon MANUAL DIFF REQ NO Normal [facility] Comment on above: Performed By: #### U AMIC #### [facility] [address] [place] [address] Dr. Tyra Poon MCH (RBC) [Entitic mass] 27.0 pg Normal 26.7-34.0 [facility] Comment on above: Performed By: #### U AMIC #### [facility] [address] [place] [address] Dr. Tyra Poon MCHC (RBC) [Mass/Vol] 32.4 g/dL Normal 29.9-35.2 [facility] Comment on above: Performed By: #### U AMIC #### [facility] [address] [place] [address] Dr. Tyra Poon MCV (RBC) [Entitic vol] 83.3 fL Normal 81.0-99.0 [facility] Comment on above: Performed By: #### U AMIC #### [facility] [address] [place] [address] Dr. Tyra Poon MONO # 0.6 103/ul Normal 0.3-0.8 [facility] Comment on above: Performed By: #### U AMIC #### [facility] [address] [place] [address] Dr. Tyra Poon Monocytes/100 WBC (Bld) 6.3 % Normal 1.7-12.0 [facility] Comment on above: Performed By: #### U AMIC #### [facility] [address] [place] [address] Dr. Tyra Poon NEUT # 5.0 103/ul Normal 1.4-6.5 [facility] Comment on above: Performed By: #### U AMIC #### [facility] [address] [place] [address] Dr. Tyra Poon Neutrophils/100 WBC (Bld) 56.6 % Normal 43.0-75.0 [facility] Comment on above: Performed By: #### U AMIC #### [facility] [address] [address] [address] Tyra Poon Platelet mean volume (Bld) [Entitic vol] 9.3 fL Critically low 9.5-13.5 [facility] Comment on above: Performed By: #### U AMIC #### [facility] [address] [place] [address] Dr. Tyra Poon PLT 310 103/ul Normal 150-450 [facility] Comment on above: Performed By: #### U AMIC #### [facility] [address] [address] [address] Tyra Poon RBC 4.00 106/ul Critically low 4.20-5.40 [facility] Comment on above: Performed By: #### U AMIC #### [facility] [address] [place] [address] Dr. Tyra Poon WBC 8.9 103/ul Normal 4.0-11.0 [facility] Comment on above: Performed By: #### U AMIC #### [facility] [address] [place] [address] Dr. Tyra Poon PREG QUANT HCGon 09-09-2022 HCG QUANT <1 Normal [facility] Comment on above: Performed By: #### P REGQNT #### [facility] [address] [place] [address] Dr. Tyra Poon HCG RANGE SEE BELOW Normal [facility] Comment on above: Result Comment: 5-50 0.2-1 WEEK 50-500 1-2 WEEKS 100-5,000 2-3 WEEKS 500-10,000 3-4 WEEKS 1,000-50,000 4-5 WEEKS 10,000-100,000 5-6 WEEKS 15,000-200,000 6-8 WEEKS 10,000-100,000 2-3 MONTHS Performed By: #### P REGQNT #### [facility] [address] [place] [address] Dr. Tyra Poon TYPE AND SCREENon 09-09-2022 TYPE AND SCREEN Negative Normal [facility] Comment on above: Performed By: #### P REGQNT #### [facility] [address] [place] [address] Dr. Tyra Poon QUANTIFERON TB GOLD PLUSon 0 07-10-2022 QuantiFERON Criteria Comment Normal [facility] Comment on above: Result Comment: Martínez [...] test. Performed By: #### Q NTTB #### [facility] [address] [place] [address] Dr. Tyra Poon QuantiFERON Incubation Incubation performed. Normal [facility] Comment on above: Performed By: #### Q NTTB #### [facility] [address] [place] [address] Dr. Tyra Poon QuantiFERON Mitogen Value >10.00 Normal [facility] Comment on above: Performed By: #### Q NTTB #### [facility] [address] [place] [address] Dr. Tyra Poon QuantiFERON Nil Value 0.05 IU/mL Normal [facility] Comment on above: Performed By: #### Q NTTB #### [facility] [address] [place] [address] Dr. Tyra Poon QuantiFERON TB1 Ag Value 0.06 IU/mL Normal [facility] Comment on above: Performed By: #### Q NTTB #### [facility] [address] [place] [address] Dr. Tyra Poon QuantiFERON TB2 Ag Value 0.07 IU/mL Normal [facility] Comment on above: Performed By: #### Q NTTB #### [facility] [address] [place] [address] Dr. yTra Poon QuantiFERON-TB Gold Plus Negative Normal Negative [facility] Comment on above: Result Comment: No r esponse to M tuberculosis antigens detected. Infection with M tuberculosis is unlikely, but high risk individuals should be considered for additional testing (ATS/IDSA/CDC Clinical Practice Guidelines, 2017). The reference range is an Antigen minus Nil result of <0.35 IU/mL. Chemiluminescence immunoassay methodology Performed By: #### Q NTTB #### [facility] [address] [place] [address] Dr. Tyra Poon HEPATITIS B SURFACE ANTIBODY , QUANTon 07-09-2022 Hepatitis B Surf AB Quant <3.1 Critically low Immunity>9.9 [facility] Comment on above: Result Comment: Stat us of Immunity Anti-HBs Level Inconsistent with Immunity 0.0 - 9.9 Consistent with Immunity >9.9 Performed By: #### H EPBSRF #### [facility] [address] [place] [address] Dr. Tyra Poon MMR IMMUNITYon 07-09-2022 Mumps Abs, IgG 142.0 AU/mL Normal Immune >10.9 [facility] Comment on above: Result Comment: Nega tive <9.0 Equivocal 9.0 - 10.9 Positive >10.9 A positive result generally indicates past exposure to Mumps virus or previous vaccination. Performed By: #### P REGQNT #### [facility] [address] [place] [address] Dr. Tyra Poon Rubella Antibodies, IgG 11.90 index Normal Immune >0.99 [facility] Comment on above: Result Comment: Non- immune <0.90 Equivocal 0.90 - 0.99 Immune >0.99 Performed By: #### P REGQNT #### [facility] [address] [place] [address] Dr. Tyra Poon Rubeola Ab, IgG 222.0 AU/mL Normal Immune >16.4 [facility] Comment on above: Result Comment: Nega tive <13.5 Equivocal 13.5 - 16.4 Positive >16.4 Presence of antibodies to Rubeola is presumptive evidence of immunity except when acute infection is suspected. Performed By: #### P REGQNT #### [facility] [address] [address] [address] Tyra Poon VARICELLA IGG ABon 3 Varicella Zoster IgG 3514 index Normal Immune >165 [facility] Comment on above: Result Comment: Nega tive <135 Equivocal 135 - 165 Positive >165 A positive result generally indicates exposure to the pathogen or administration of specific immunoglobulins, but it is not indication of active infection or stage of disease. Performed By: #### U AMIC #### [facility] [address] [place] [address] Dr. Tyra Poon PAP ACOG PANEL 2: 30 to 65on 05-31-2022 . . Normal [facility] Comment on above: Result Comment: Perf ormed at: WB Performed By: #### [id number] #### [facility] [address] [place] [address] Dr. Tyra Poon Age Gdln ACOG Testing 30-65 Normal [facility] Comment on above: Performed By: #### [id number] #### [facility] [address] [place] [address] Dr. Tyra Poon DIAGNOSIS: Comment Normal [facility] Comment on above: Result Comment: NEGA TIVE FOR INTRAEPITHELIAL LESION OR MALIGNANCY. CELLULAR CHANGES ASSOCIATED WITH INFLAMMATION ARE PRESENT. Performed at: WB Performed By: #### [id number] #### [facility] [address] [place] [address] Dr. Tyra Poon HPV Aptima Negative Normal Negative [facility] Comment on above: Result Comment: This nucleic acid amplification test detects fourteen high-risk HPV types (16,18,31,33,35,39,45,51,52,56,58,59,66,68) without differentiation. Performed at: =G Performed By: #### [id number] #### [facility] [address] [place] [address] Dr. Tyra Poon HPV Genotype Reflex Comment Normal [facility] Comment on above: Result Comment: Crit eria not met, HPV Genotype not performed. Performed at: WB Performed By: #### [id number] #### [facility] [address] [place] [address] Dr. Tyra Poon Methodology: Comment Normal [facility] Comment on above: Result Comment: This liquid based ThinPrep(R) pap test was screened with the use of an image guided system. Performed at: WB Performed By: #### [id number] #### [facility] [address] [place] [address] Dr. Tyra Poon Note: Comment Normal [facility] Comment on above: Result Comment: The Pap smear is a screening test designed to aid in the detection of premalignant and malignant conditions of the uterine cervix. It is not a diagnostic procedure and should not be used as the sole means of detecting cervical cancer. Both false-positive and false-negative reports do occur. . Performed at: WB Performed By: #### [id number] #### [facility] [address] [place] [address] Dr. Tyra Poon Performed by: Comment Normal [facility] Comment on above: Result Comment: Sharita Watt [employer] Inspector (ASCP) Performed at: WB Performed By: #### [id number] #### [facility] [address] [place] [address] Dr. Tyra Poon Specimen adequacy: Comment Normal [facility] Comment on above: Result Comment: Sati sfactory for evaluation. Endocervical and/or squamous metaplastic cells (endocervical component) are present. Performed at: WB Performed By: #### [id number] #### [facility] [address] [place] [address] Dr. Tyra Poon US PELVIS AND TRANSVAGon [...] TIM PAZ Date: 2022-05-14 09:50 Normal [facility] AMYLASEon 04-30-2022 Amylase [Catalytic activity/Vol] 40 U/L Normal 25-115 [facility] Comment on above: Performed By: #### D DIM #### [facility] [address] [place] [address] Dr. Tyra Poon CBC AUTO DIFFon 04-30-2022 BASO # 0.1 103/ul Normal 0.0-0.1 [facility] Comment on above: Performed By: #### C BC #### [facility] [address] [place] [address] Dr. Tyra Poon Basophils/100 WBC (Bld) 1.3 % Normal 0.2-2.0 [facility] Comment on above: Performed By: #### C BC #### [facility] [address] [place] [address] Dr. Tyra Poon EO # 0.2 103/ul Normal 0.0-0.7 [facility] Comment on above: Performed By: #### C BC #### [facility] [address] [place] [address] Dr. Tyra Poon Eosinophils/100 WBC (Bld) 2.9 % Normal 0.9-7.0 [facility] Comment on above: Performed By: #### C BC #### [facility] [address] [place] [address] Dr. Tyra Poon Erythrocyte distribution width (RBC) [Ratio] 14.4 % Normal 11.0-15.0 [facility] Comment on above: Performed By: #### C BC #### [facility] [address] [place] [address] Dr. Tyra Poon Hematocrit (Bld) [Volume fraction] 36.8 % Normal 36.0-48.0 [facility] Comment on above: Performed By: #### C BC #### [facility] [address] [place] [address] Dr. Tyra Poon Hemoglobin (Bld) [Mass/Vol] 12.0 g/dL Normal 12.0-16.0 [facility] Comment on above: Performed By: #### C BC #### [facility] [address] [place] [address] Dr. Tyra Poon IG # 0.05 10e3/ul Critically high 0.00-0.03 [facility] Comment on above: Performed By: #### C BC #### [facility] [address] [place] [address] Dr. Tyra Poon IG % 0.6 % Critically high 0.0-0.5 [facility] Comment on above: Performed By: #### C BC #### [facility] [address] [place] [address] Dr. Tyra Poon LYMPH # 3.3 103/ul Normal 1.2-3.8 [facility] Comment on above: Performed By: #### C BC #### [facility] [address] [place] [address] Dr. Tyra Poon Lymphocytes/100 WBC (Bld) 38.9 % Normal 20.5-60.0 [facility] Comment on above: Performed By: #### C BC #### [facility] [address] [place] [address] Dr. yTra Poon MANUAL DIFF REQ NO Normal [facility] Comment on above: Performed By: #### C BC #### [facility] [address] [place] [address] Dr. Tyra Poon MCH (RBC) [Entitic mass] 27.0 pg Normal 26.7-34.0 [facility] Comment on above: Performed By: #### C BC #### [facility] [address] [address] [address] Tyra Poon MCHC (RBC) [Mass/Vol] 32.6 g/dL Normal 29.9-35.2 [facility] Comment on above: Performed By: #### C BC #### [facility] [address] [address] [address] Tyra Poon MCV (RBC) [Entitic vol] 82.9 fL Normal 81.0-99.0 [facility] Comment on above: Performed By: #### C BC #### [facility] [address] [place] [address] Dr. Tyra Poon MONO # 0.6 103/ul Normal 0.3-0.8 [facility] Comment on above: Performed By: #### C BC #### [facility] [address] [place] [address] Dr. Tyra Poon Monocytes/100 WBC (Bld) 6.7 % Normal 1.7-12.0 [facility] Comment on above: Performed By: #### C BC #### [facility] [address] [address] [address] Tyra Poon NEUT # 4.2 103/ul Normal 1.4-6.5 [facility] Comment on above: Performed By: #### C BC #### [facility] [address] [place] [address] Dr. Tyra Poon Neutrophils/100 WBC (Bld) 49.6 % Normal 43.0-75.0 [facility] Comment on above: Performed By: #### C BC #### [facility] [address] [place] [address] Dr. Tyra Poon Platelet mean volume (Bld) [Entitic vol] 9.4 fL Critically low 9.5-13.5 [facility] Comment on above: Performed By: #### C BC #### [facility] [address] [place] [address] Dr. Tyra Poon PLT 347 103/ul Normal 150-450 [facility] Comment on above: Performed By: #### C BC #### [facility] [address] [place], [place] [address] Dr. Tyra Poon RBC 4.44 106/ul Normal 4.20-5.40 [facility] Comment on above: Performed By: #### C BC #### [facility] [address] [place], [place] [address] Dr. Tyra Poon WBC 8.4 103/ul Normal 4.0-11.0 [facility] Comment on above: Performed By: #### C BC #### [facility] [address] [place], [place] [address] ABD/PELVIS WO CONon [...] by: TIM PAZ Date: 2022-04-30 10:10 Normal [facility] ER URINE PROFILEon 2 Bilirubin Ql (U) Negative Normal NEGATIVE [facility] Comment on above: Performed By: #### U AMIC #### [facility] [address] [address] [address] Tyra Poon Clarity (U) CLEAR Normal CLEAR [facility] Comment on above: Performed By: #### U AMIC #### [facility] [address] [address] [address] Tyra Poon Color (U) YELLOW Normal YELLOW [facility] Comment on above: Performed By: #### U AMIC #### [facility] [address] [address] [address] Tyra BORREGO A micrscopic examination will be performed if indicated. Normal [facility] Comment on above: Performed By: #### U AMIC #### [facility] [address] [address] [address] Tyra Poon Glucose Ql (U) Negative Normal NEGATIVE [facility] Comment on above: Performed By: #### U AMIC #### [facility] [address] [address] [address] Tyra Poon Hemoglobin Ql (U) Negative Normal NEGATIVE [facility] Comment on above: Performed By: #### U AMIC #### [facility] [address] [address] [address] Tyra Poon Ketones Ql (U) Negative Normal NEGATIVE [facility] Comment on above: Performed By: #### U AMIC #### [facility] [address] [address] [address] Tyra Poon LEUKOCYTES Negative Normal NEGATIVE [facility] Comment on above: Performed By: #### U AMIC #### [facility] [address] [address] [address] Tyra Poon Nitrite Ql (U) Negative Normal NEGATIVE [facility] Comment on above: Performed By: #### U AMIC #### [facility] [address] [address] [address] Tyra Poon pH (U) 6.0 [pH] Normal 5-9 [facility] Comment on above: Performed By: #### U AMIC #### [facility] [address] [address] [address] Tyra Poon SPEC GRAVITY >=1.030 Abnormal 1.005-<=1.025 [facility] Comment on above: Performed By: #### U AMIC #### [facility] [address] [address] [address] Tyra Poon UA PROTEIN Negative Normal NEGATIVE/ TRACE [facility] Comment on above: Performed By: #### U AMIC #### [facility] [address] [place] [address] Dr. Tyra Poon UR MICRO IND NOT INDICATED Normal [facility] Comment on above: Performed By: #### U AMIC #### [facility] [address] [place] [address] Dr. Tyra Poon Urobilinogen Qn (U) 0.2 {[place]'U}/dL Normal 0.2 - 1.0 [facility] Comment on above: Performed By: #### U AMIC #### [facility] [address] [place] [address] Dr. Tyra Poon LIPASEon 04-30-2022 Lipase [Catalytic activity/Vol] 83.0 U/L Normal 73.0-393.0 [facility] Comment on above: Performed By: #### D DIM #### [facility] [address] [place] [address] Dr. Tyra Poon URon 04-30-2022 , QUAL Negative Normal NEGATIVE [facility] Comment on above: Performed By: #### U AMIC #### [facility] [address] [place] [address] Dr. Tyra Poon PROF 14(COMP METB)on 022 Albumin [Mass/Vol] 3.6 g/dL Normal 3.4-5.[address] [facility] Comment on above: Performed By: #### D DIM #### [facility] [address] [address] [address] Tyra Poon Albumin/Globulin [Mass ratio] 0.8 {ratio} Normal [facility] Comment on above: Performed By: #### D DIM #### [facility] [address] [address] [address] Tyra Poon ALP [Catalytic activity/Vol] 65 U/L Normal 46-116 [facility] Comment on above: Performed By: #### D DIM #### [facility] [address] [address] Dr. Tyra Poon ALT [Catalytic activity/Vol] 13 U/L Critically low 14-59 [facility] Comment on above: Performed By: #### D DIM #### [facility] [address] [place] [address] Dr. Tyra Poon Anion gap [Moles/Vol] 12.5 mmol/L Normal [facility] Comment on above: Performed By: #### D DIM #### [facility] [address] [place] [address] Dr. Tyra Poon AST [Catalytic activity/Vol] 12 U/L Critically low 15-37 [facility] Comment on above: Performed By: #### D DIM #### [facility] [address] [place] [address] Dr. Tyra Poon Bilirubin [Mass/Vol] 0.3 mg/dL Normal 0.2-1.0 [facility] Comment on above: Performed By: #### D DIM #### [facility] [address] [place] [address] Dr. Tyra Poon Calcium [Mass/Vol] 8.8 mg/dL Normal 8.5-10.1 [facility] Comment on above: Performed By: #### D DIM #### [facility] [address] [place] [address] Dr. Tyra Poon Chloride [Moles/Vol] 103 mmol/L Normal 98-107 [facility] Comment on above: Performed By: #### D DIM #### [facility] [address] [address] [address] Tyra Poon CO2 [Moles/Vol] 26.3 mmol/L Normal 21.0-32.0 [facility] Comment on above: Performed By: #### D DIM #### [facility] [address] [address] [address] Tyra Poon Creatinine [Mass/Vol] 0.87 mg/dL Normal 0.55-1.02 [facility] Comment on above: Performed By: #### D DIM #### [facility] [address] [address] [address] Tyra Poon EGFR-AF FRENCH >60 Normal >=60 [facility] Comment on above: Performed By: #### D DIM #### [facility] [address] [address] [address] Tyra Poon EGFR-NON AF FRENCH >60 Normal >=60 [facility] Comment on above: Performed By: #### D DIM #### [facility] [address] [address] [address] Tyra Poon Globulin (S) [Mass/Vol] 4.3 g/dL Normal [facility] Comment on above: Performed By: #### D DIM #### [facility] [address] [place] [address] Dr. Tyra Poon Glucose [Mass/Vol] 120 mg/dL Critically high 74-106 [facility] Comment on above: Performed By: #### D DIM #### [facility] [address] [address] [address] Tyra Poon Potassium [Moles/Vol] 3.8 mmol/L Normal 3.5-5.1 [facility] Comment on above: Performed By: #### D DIM #### [facility] [address] [place] [address] Dr. Tyra Poon Protein [Mass/Vol] 7.9 g/dL Normal 6.4-8.2 [facility] Comment on above: Performed By: #### D DIM #### [facility] [address] [place] [address] Dr. Tyra Poon Sodium [Moles/Vol] 138 mmol/L Normal 136-[address] [facility] Comment on above: Performed By: #### D DIM #### [facility] [address] [place] [address] Dr. Tyra Poon Urea nitrogen [Mass/Vol] 11.0 mg/dL Normal 7.0-18.0 [facility] Comment on above: Performed By: #### D DIM #### [facility] [address] [place] [address] Dr. Tyra Poon Urea nitrogen/Creatinin e [Mass ratio] 12.6 mg/mg Normal [facility] Comment on above: Performed By: #### D DIM #### [facility] [address] [place] [address] Dr. Tyra Poon CBC AUTO DIFFon 01-12-2022 BASO # 0.1 103/ul Normal 0.0-0.1 [facility] Comment on above: Performed By: #### D DIM #### [facility] [address] [place] [address] Dr. Tyra Poon Basophils/100 WBC (Bld) 0.9 % Normal 0.2-2.0 [facility] Comment on above: Performed By: #### D DIM #### [facility] [address] [place] [address] Dr. Tyra Poon EO # 0.2 103/ul Normal 0.0-0.7 [facility] Comment on above: Performed By: #### D DIM #### [facility] [address] [place] [address] Dr. Tyra Poon Eosinophils/100 WBC (Bld) 2.2 % Normal 0.9-7.0 [facility] Comment on above: Performed By: #### D DIM #### [facility] [address] [place] [address] Dr. Tyra Poon Erythrocyte distribution width (RBC) [Ratio] 14.0 % Normal 11.0-15.0 [facility] Comment on above: Performed By: #### D DIM #### [facility] [address] [place] [address] Dr. Tyra Poon Hematocrit (Bld) [Volume fraction] 34.1 % Critically low 36.0-48.0 [facility] Comment on above: Performed By: #### D DIM #### [facility] [address] [place] [address] Dr. Tyra Poon Hemoglobin (Bld) [Mass/Vol] 10.7 g/dL Critically low 12.0-16.0 [facility] Comment on above: Performed By: #### D DIM #### [facility] [address] [place] [address] Dr. Tyra Poon IG # 0.05 10e3/ul Critically high 0.00-0.03 [facility] Comment on above: Performed By: #### D DIM #### [facility] [address] [place] [address] Dr. Tyra Poon IG % 0.6 % Critically high 0.0-0.5 [facility] Comment on above: Performed By: #### D DIM #### [facility] [address] [place] [address] Dr. Tyra Poon LYMPH # 2.6 103/ul Normal 1.2-3.8 [facility] Comment on above: Performed By: #### D DIM #### [facility] [address] [place] [address] Dr. Tyra Poon Lymphocytes/100 WBC (Bld) 31.8 % Normal 20.5-60.0 [facility] Comment on above: Performed By: #### D DIM #### [facility] [address] [place] [address] Dr. Tyra Poon MANUAL DIFF REQ NO Normal [facility] Comment on above: Performed By: #### D DIM #### [facility] [address] [place] [address] Dr. Tyra Poon MCH (RBC) [Entitic mass] 26.6 pg Critically low 26.7-34.0 [facility] Comment on above: Performed By: #### D DIM #### [facility] [address] [place] [address] Dr. Tyra Poon MCHC (RBC) [Mass/Vol] 31.4 g/dL Normal 29.9-35.2 [facility] Comment on above: Performed By: #### D DIM #### [facility] [address] [address] [address] Tyra Poon MCV (RBC) [Entitic vol] 84.8 fL Normal 81.0-99.0 [facility] Comment on above: Performed By: #### D DIM #### [facility] [address] [address] [address] Tyra Poon MONO # 0.5 103/ul Normal 0.3-0.8 [facility] Comment on above: Performed By: #### D DIM #### [facility] [address] [place] [address] Dr. Tyra Poon Monocytes/100 WBC (Bld) 6.4 % Normal 1.7-12.0 [facility] Comment on above: Performed By: #### D DIM #### [facility] [address] [place] [address] Dr. Tyra Poon NEUT # 4.7 103/ul Normal 1.4-6.5 [facility] Comment on above: Performed By: #### D DIM #### [facility] [address] [place] [address] Dr. Tyra Poon Neutrophils/100 WBC (Bld) 58.1 % Normal 43.0-75.0 [facility] Comment on above: Performed By: #### D DIM #### [facility] [address] [place] [address] Dr. Tyra Poon Platelet mean volume (Bld) [Entitic vol] 9.7 fL Normal 9.5-13.5 [facility] Comment on above: Performed By: #### D DIM #### [facility] [address] [place] [address] Dr. Tyra Poon PLT 318 103/ul Normal 150-450 [facility] Comment on above: Performed By: #### D DIM #### [facility] [address] [place] [address] Dr. Tyra Poon RBC 4.02 106/ul Critically low 4.20-5.40 [facility] Comment on above: Performed By: #### D DIM #### [facility] [address] [place] [address] Dr. Tyra Poon WBC 8.0 103/ul Normal 4.0-11.0 [facility] Comment on above: Performed By: #### D DIM #### [facility] [address] [place] [address] Dr. Tyra Poon FERRITINon 01-12-2022 Ferritin [Mass/Vol] 12.0 ng/mL Normal 6.2-137.0 [facility] Comment on above: Performed By: #### D DIM #### [facility] [address] [place] [address] Dr. Tyra Poon FREE T4on 01-12-2022 Free T4 [Mass/Vol] 1.04 ng/dL Normal 0.76-1.[address] [facility] Comment on above: Performed By: #### P REGQNT #### [facility] [address] [place] [address] Dr. Tyra Poon IRONon 01-12-2022 Iron [Mass/Vol] 32.0 ug/dL Critically low 50.0-170.0 [facility] Comment on above: Performed By: #### D DIM #### [facility] [address] [place] [address] Dr. Tyra Poon LIPID PROFILEon 01-12-2022 CHOL-HDL RATIO NORM SEE BELOW Normal [facility] Comment on above: Result Comment: 3.3 - 4.4 LOW RISK 4.4 - 7.1 AVERAGE RISK 7.1 - 11.0 MODERATE RISK >11.0 HIGH RISK Performed By: #### U AMIC #### [facility] [address] [place] [address] Dr. Tyra Poon Cholesterol [Mass/Vol] 236 mg/dL Critically high <=200 [facility] Comment on above: Performed By: #### U AMIC #### [facility] [address] [place] [address] Dr. Tyra Poon Cholesterol in HDL [Mass/Vol] 65 mg/dL Critically high 40-60 [facility] Comment on above: Performed By: #### U AMIC #### [facility] [address] [address] [address] Tyra Poon Cholesterol in LDL [Mass/Vol] 149.8 mg/dL Normal [facility] Comment on above: Performed By: #### U AMIC #### [facility] [address] [address] [address] Tyra Poon Cholesterol.total/ Cholesterol in HDL [Mass ratio] 3.6 {ratio} Normal [facility] Comment on above: Performed By: #### U AMIC #### [facility] [address] [address] [address] Tyra Poon HDL NORMAL > or = 60 mg/dl - LO W CARDIOVASCULAR RISK <40 mg/dl - HIGH CARDIOVASCULAR RISK Normal [facility] Comment on above: Performed By: #### U AMIC #### [facility] [address] [address] [address] Tyra Poon LDL CALC NORMAL SEE BELOW Normal [facility] Comment on above: Result Comment: <100 mg/dl OPTIMAL 100 - 129 mg/dl NEAR OR ABOVE OPTIMAL 130 - 159 mg/dl BORDERLINE HIGH 160 - 189 mg/dl HIGH >190 mg/dl VERY HIGH Performed By: #### U AMIC #### [facility] [address] [address] [address] Tyra Poon Triglyceride [Mass/Vol] 106 mg/dL Normal <=150 [facility] Comment on above: Performed By: #### U AMIC #### [facility] [address] [address] [address] Tyra Poon VLDL CALC 21.2 mg/dL Normal [facility] Comment on above: Performed By: #### U AMIC #### [facility] [address] [address] [address] Tyra Poon PROF 14(COMP METB)on 022 Albumin [Mass/Vol] 3.4 g/dL Normal 3.4-5.[address] [facility] Comment on above: Performed By: #### U AMIC #### [facility] [address] [address] [address] Tyra Poon Albumin/Globulin [Mass ratio] 0.8 {ratio} Normal [facility] Comment on above: Performed By: #### U AMIC #### [facility] [address] [place] [address] Dr. Tyra Poon ALP [Catalytic activity/Vol] 63 U/L Normal 46-116 [facility] Comment on above: Performed By: #### U AMIC #### [facility] [address] [address] [address] Tyra Poon ALT [Catalytic activity/Vol] 24 U/L Normal 14-59 [facility] Comment on above: Performed By: #### U AMIC #### [facility] [address] [place] [address] Dr. Tyra Poon Anion gap [Moles/Vol] 10.4 mmol/L Normal [facility] Comment on above: Performed By: #### U AMIC #### [facility] [address] [place] [address] Dr. Tyra Poon AST [Catalytic activity/Vol] 14 U/L Critically low 15-37 [facility] Comment on above: Performed By: #### U AMIC #### [facility] [address] [place] [address] Dr. Tyra Poon Bilirubin [Mass/Vol] 0.3 mg/dL Normal 0.2-1.0 [facility] Comment on above: Performed By: #### U AMIC #### [facility] [address] [place] [address] Dr. Tyra Poon Calcium [Mass/Vol] 8.7 mg/dL Normal 8.5-10.[address] [facility] Comment on above: Performed By: #### U AMIC #### [facility] [address] [place] [address] Dr. Tyra Poon Chloride [Moles/Vol] 101 mmol/L Normal 98-107 [facility] Comment on above: Performed By: #### U AMIC #### [facility] [address] [place] [address] Dr. Tyra Poon CO2 [Moles/Vol] 29.8 mmol/L Normal 21.0-32.0 [facility] Comment on above: Performed By: #### U AMIC #### [facility] [address] [address] [address] Tyra Poon Creatinine [Mass/Vol] 0.89 mg/dL Normal 0.55-1.02 [facility] Comment on above: Performed By: #### U AMIC #### [facility] [address] [address] [address] Tyra Poon EGFR-AF FRENCH >60 Normal >=60 [facility] Comment on above: Performed By: #### U AMIC #### [facility] [address] [address] [address] Tyra Poon EGFR-NON AF FRENCH >60 Normal >=60 [facility] Comment on above: Performed By: #### U AMIC #### [facility] [address] [place] [address] Dr. Tyra Poon Globulin (S) [Mass/Vol] 4.3 g/dL Normal [facility] Comment on above: Performed By: #### U AMIC #### [facility] [address] [place] [address] Dr. Tyra Poon Glucose [Mass/Vol] 107 mg/dL Critically high 74-106 [facility] Comment on above: Performed By: #### U AMIC #### [facility] [address] [place] [address] Dr. Tyra Poon Potassium [Moles/Vol] 4.2 mmol/L Normal 3.5-5.1 [facility] Comment on above: Performed By: #### U AMIC #### [facility] [address] [address] [address] Tyra Poon Protein [Mass/Vol] 7.7 g/dL Normal 6.4-8.2 [facility] Comment on above: Performed By: #### U AMIC #### [facility] [address] [address] [address] Tyra Poon Sodium [Moles/Vol] 137 mmol/L Normal 136-145 [facility] Comment on above: Performed By: #### U AMIC #### [facility] [address] [place] [address] Dr. Tyra Poon Urea nitrogen [Mass/Vol] 15.0 mg/dL Normal 7.0-18.0 [facility] Comment on above: Performed By: #### U AMIC #### [facility] [address] [place] [address] Dr. Tyra Poon Urea nitrogen/Creatinin e [Mass ratio] 16.9 mg/mg Normal [facility] Comment on above: Performed By: #### U AMIC #### [facility] [address] [place] [address] Dr. Tyra Poon TSHon 01-12-2022 TSH 2.550 uIU/mL Normal 0.358-3.740 [facility] Comment on above: Performed By: #### U AMIC #### [facility] [address] [place] [address] Dr. Tyra Poon UA RANDOM W/MICROSCOPICon BACTERIA NONE SEEN Normal NONE SEEN [facility] Comment on above: Performed By: #### U AMIC #### [facility] [address] [place] [address] Dr. Tyra Poon Bilirubin Ql (U) Negative Normal NEGATIVE [facility] Comment on above: Performed By: #### U AMIC #### [facility] [address] [place] [address] Dr. Tyra Poon CAST NONE SEEN Normal NONE SEEN [facility] Comment on above: Performed By: #### U AMIC #### [facility] [address] [place] [address] Dr. Tyra Poon Clarity (U) CLEAR Normal CLEAR [facility] Comment on above: Performed By: #### U AMIC #### [facility] [address] [place] [address] Dr. Tyra Poon Color (U) YELLOW Normal YELLOW [facility] Comment on above: Performed By: #### U AMIC #### [facility] [address] [place], [place] [id number] Dr. Tyra Poon Crystals LM Nom (Urine sed) NONE SEEN Normal NONE SEEN [facility] Comment on above: Performed By: #### U AMIC #### [facility] [address] [address] [address] Tyra Poon Epithelial cells LM Ql (Urine sed) RARE Normal NONE SEEN /RARE [facility] Comment on above: Performed By: #### U AMIC #### [facility] [address] [address] [address] Tyra Poon Glucose Ql (U) Negative Normal NEGATIVE [facility] Comment on above: Performed By: #### U AMIC #### [facility] [address] [place] [address] Dr. Tyra Poon Hemoglobin Ql (U) MODERATE Abnormal NEGATIVE [facility] Comment on above: Performed By: #### U AMIC #### [facility] [address] [place] [address] Dr. Tyra Poon Ketones Ql (U) Negative Normal NEGATIVE [facility] Comment on above: Performed By: #### U AMIC #### [facility] [address] [address] [address] Tyra Poon LEUKOCYTES Negative Normal NEGATIVE [facility] Comment on above: Performed By: #### U AMIC #### [facility] [address] [address] [address] Tyra Poon MUCOUS NONE SEEN Normal NONE SEEN [facility] Comment on above: Performed By: #### U AMIC #### [facility] [address] [address] [address] Tyra Poon Nitrite Ql (U) Negative Normal NEGATIVE [facility] Comment on above: Performed By: #### U AMIC #### [facility] [address] [address] [address] Tyra Poon pH (U) 6.0 [pH] Normal 5-9 [facility] Comment on above: Performed By: #### U AMIC #### [facility] [address] [address] [address] Tyra Poon RBC 0-2 Normal 0-2 [facility] Comment on above: Performed By: #### U AMIC #### [facility] [address] [address] [address] Tyra Poon SPEC GRAVITY 1.025 Normal 1.005-<=1.025 [facility] Comment on above: Performed By: #### U AMIC #### [facility] [address] [address] [address] Tyra Poon UA PROTEIN Negative Normal NEGATIVE/ TRACE [facility] Comment on above: Performed By: #### U AMIC #### [facility] [address] [address] [address] Tyra Poon Urobilinogen Qn (U) 0.2 {[place]'U}/dL Normal 0.2 - 1.0 [facility] Comment on above: Performed By: #### U AMIC #### [facility] [address] [address] [address] Tyra Poon WBC NONE SEEN Normal NONE SEEN [facility] Comment on above: Performed By: #### U AMIC #### [facility] [address] [address] [address] Tyra Poon Encounters Encounter Date Encounter Type Care Provider Facility Start: 02-23-2024 End: 02-23-2024 ambulatory JONATAN LAIRD Not Available Start: 02-21-2024 End: 02-21-2024 ambulatory BERNICE AICHHOLZ Not Available Start: 12-29-2023 End: 12-29-2023 ambulatory BERNICE AICHHOLZ Not Available Start: 11-04-2023 End: 11-04-2023 ambulatory BERNICE AICHHOLZ Not Available Start: 09-15-2023 End: 09-15-2023 ambulatory HONORIO COYO Not Available Start: 08-02-2023 End: 08-02-2023 ambulatory BERNICE AICHHOLZ Not Available Start: 11-27-2022 End: 11-28-2022 ambulatory [employer] BERNICE AICHHOLZ Facility:[facility] Start: 11-17-2022 End: 11-18-2022 ambulatory [employer] BERNICE AICHHOLZ Facility:[facility] Start: 09-12-2022 Encounter for prepro cedural laboratory examination DR HONORIO SHANE . [facility] Start: 09-11-2022 End: 09-12-2022 ambulatory [employer] BERNICE CARINA Facility:[facility] Start: 09-09-2022 End: 09-10-2022 ambulatory [employer] BERNICE BASILZ Facility:[facility] Start: 09-09-2022 End: 09-10-2022 Encounter for preprocedural laboratory examination [employer] BERNICE CARINA Facility:[facility] Start: 09-02-2022 Encounter for prepro cedural cardiovascular examination DR HONORIO SHANE . [facility] Start: 08-28-2022 End: 08-29-2022 ambulatory [employer] BERNICE BASILZ Facility:[facility] Start: 08-28-2022 End: 08-29-2022 Encounter for preprocedural cardiovascular examination [employer] BERNICE LIM Facility:[facility] Start: 07-08-2022 End: 07-09-2022 ambulatory [employer] BERNICE CARINA Facility:[facility] Start: 05-21-2022 End: 05-21-2022 ambulatory [employer] BERNICE CARINA Facility:[facility] Start: 05-13-2022 End: 05-14-2022 ambulatory [employer] BERNICE CARINA Facility:[facility] Start: 04-30-2022 End: 04-30-2022 ambulatory LU DEMARIO . Facility:[facility] Start: 01-12-2022 End: 01-13-2022 ambulatory [employer] BERNICE CARINA Facility:[facility] Payers Date Payer Category Payer Unknown [id number] 2022 Unknown [id number] Unknown [id number] 1979 Unknown [id number] 1979 Unknown [id number] .[id number] [id number] 1979 Unknown [id number] [id number] 1979 Unknown [id number] 2.16.84 [id number] 1979 Unknown [id number] 2.16.84 [id number] 1979 Unknown [id number] 2.16.84 [id number] 1979 Unknown [id number] 2.16.84 0.1.485987.3.579.2.593 1979 Unknown [id number] 2.16.84 0.1.200190.3.579.2.593 1979 Unknown [id number] 2.16.84 0.1.165124.3.579.2.593 1979 Unknown [id number] 2.16.84 0.1.103446.3.579.2.1259 1979 Unknown [id number] 2.16.84 0.1.668793.3.579.2.1259 1979 Unknown [id number] 2.16.84 0.1.433323.3.579.2.1259 1979 Unknown [id number] 2.16.84 0.1.327982.3.579.2.1259 1979 Unknown [id number] 2.16.84 0.1.986665.3.579.2.1259 1979 Unknown [id number] 2.16.84 [id number] 1959 Private Health Insurance [id number] Self-pay Unknown [id number] 2.16.84 [id number] Clinical Note 09-11-2022 Note Date & Type Note Facility 09-11-2022 Note OP Note OPERATION DATE: 09/11/2022 PROCEDURE: Robotic assisted laparoscopic hysterectomy with bilateral salpingectomy with cystoscopy. PREOPERATIVE DIAGNOSIS: Cervical dysplasia, history of abnormal cervical cells, menorrhagia, dyspareunia, dysmenorrhea. POSTOPERATIVE DIAGNOSIS: Cervical dysplasia, history of abnormal cervical cells, menorrhagia, dyspareunia, dysmenorrhea. ANESTHESIA: General. SURGEON: Honorio Shane D.O. BASKETBALL SCOUT: JOSH Gonzales URINE OUTPUT: Yellow and clear. [...] Anesthesia first. Patient tolerated procedure well. [facility] Discharge summary note 09-11-2022 Note Date & [...] free and no longer on narcotics. The [facility] Clinical Note 09-11-2022 Note Date & Type Note Facility 09-11-2022 Note OPERATIVE NOTE OPERATION DATE: 09/12/2022 PROCEDURE: Robotic assisted laparoscopic hysterectomy with bilateral salpingectomy with cystoscopy. PREOPERATIVE DIAGNOSIS: Cervical dysplasia, history of abnormal cervical cells, menorrhagia, dyspareunia, dysmenorrhea. POSTOPERATIVE DIAGNOSIS: Cervical dysplasia, history of abnormal cervical cells, menorrhagia, dyspareunia, dysmenorrhea. ANESTHESIA: General. SURGEON: Honorio Shane D.O. BASKETBALL SCOUT: JOSH Gonzales URINE OUTPUT: Yellow and clear. [...] Anesthesia first. Patient tolerated procedure well. [facility] Summary Purpose Family History No Family History Records FoundNo Family History Records Found Advance Directives No Advanced Directives Records FoundNo Advanced Directives Records Found Additional Source Comments INFORMATION SOURCE (unrecogn ized section and content) DATE CREATED AUTHOR 12/11/2022 [facility] DATE CREATED AUTHOR 'S ORGANIZ ATION 02/25/2024 [facility] EPIC FOR RECORDS PERTAINING TO PATIENTS WHO ARE [...] BE BASED ON THE PRIMARY CLINICAL RECORDS. [facility] [employer] [facility]. provides no warranty or guarantee of the accuracy or completeness of information in this document.
== END 2024-02-25 11:48 | disposition home or self-care (01) ==
LOC: PST 11:48
PROVIDERS: PCP Nurse Practitioner; Visit Provider Surgery
DX: Z01.818 Encounter for other preprocedural examination (principal); Z12.11 Encounter for screening for malignant neoplasm of colon

== ENCOUNTER 2024-02-29 08:00 | Day surgery (SDC) | payer BC, SELFPAY ==
--- OUTSIDE RECORDS SUMMARY | 2024-02-29 08:07 | XMS_ITS | CCD ---
Author Organization [facility] Care Team Providers Care Blueprint Reproducer Name Role Phone AICHHOLZ, MOUNTING MACHINE OPERATOR BERNICE Primary Care Unavailable ARIA, NISH Consulting Unavailable ARIA, NISH Attending Unavailable ARIA, NISH Admitting Unavailable DEMARIO ., LU Attending Unavailable BRANDI, DR TIM Dunaway Consulting Unavailable AICHHOLZ, MOUNTING MACHINE OPERATOR BERNICE Primary Care Unavailable DEMARIO ., LU Admitting Unavailable DEMARIO ., LU Consulting Unavailable AICHHOLZ, MOUNTING MACHINE OPERATOR BERNICE Attending Unavailable AICHHOLZ, MOUNTING MACHINE OPERATOR BERNICE Admitting Unavailable AICHHOLZ, MOUNTING MACHINE OPERATOR BERNICE Primary Care Unavailable AICHHOLZ, MOUNTING MACHINE OPERATOR BERNICE Consulting Unavailable AICHHOLZ, MOUNTING MACHINE OPERATOR BERNICE Primary Care Unavailable ES ., DR OLMEDO Consulting Unavailable ES ., DR OLMEDO Attending Unavailable ES ., DR OLMEDO Admitting Unavailable AICHHOLZ, MOUNTING MACHINE OPERATOR BERNICE Primary Care Unavailable ES ., DR OLMEDO Admitting Unavailable ES ., DR OLMEDO Consulting Unavailable ES ., DR OLMEDO Attending Unavailable AICHHOLZ, MOUNTING MACHINE OPERATOR BERNICE Primary Care Unavailable ES ., DR OLMEDO Admitting Unavailable ES ., DR OLMEDO Consulting Unavailable ES ., DR OLMEDO Attending Unavailable AICHHOLZ, MOUNTING MACHINE OPERATOR BERNICE Consulting Unavailable AICHHOLZ, MOUNTING MACHINE OPERATOR BERNICE Attending Unavailable AICHHOLZ, MOUNTING MACHINE OPERATOR BERNICE Admitting Unavailable AICHHOLZ, MOUNTING MACHINE OPERATOR BERNICE Primary Care Unavailable BRANDI, DR TMI Dunaway Consulting Unavailable AICHHOLZ, MOUNTING MACHINE OPERATOR BERNICE Consulting Unavailable AICHHOLZ, MOUNTING MACHINE OPERATOR BERNICE Attending Unavailable AICHHOLZ, MOUNTING MACHINE OPERATOR BERNICE Admitting Unavailable AICHHOLZ, MOUNTING MACHINE OPERATOR BERNICE Primary Care Unavailable AICHHOLZ, MOUNTING MACHINE OPERATOR BERNICE Attending Unavailable AICHHOLZ, MOUNTING MACHINE OPERATOR BERNICE Admitting Unavailable AICHHOLZ, MOUNTING MACHINE OPERATOR BERNICE Primary Care Unavailable AICHHOLZ, MOUNTING MACHINE OPERATOR BERNICE Consulting Unavailable AICHHOLZ, MOUNTING MACHINE OPERATOR BERNICE Attending Unavailable AICHHOLZ, MOUNTING MACHINE OPERATOR BERNICE Admitting Unavailable AICHHOLZ, MOUNTING MACHINE OPERATOR BERNICE Primary Care Unavailable AICHHOLZ, MOUNTING MACHINE OPERATOR BERNICE Consulting Unavailable AICHHOLZ, MOUNTING MACHINE OPERATOR BERNICE Primary Care Unavailable ES ., DR [...] source) Bee pollen Drug allergy (disorder) [facility] (1 source) Penicillins Drug allergy (disorder) 5 [facility] (1 source) Sulfamethoxazole / Trimethoprim Drug Allergy 5 [facility] Problems Active Problems Problem Classification Problem [...] 05-23-2022 Episodic Other aftercare (1 source) Other senior living (current) drug therapy; Translations: [OTH 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 Tyra Poon Basophils/100 WBC (Bld) 0.9 % Normal 0.2-2.0 [facility] Comment on above: Performed By: #### D DIM #### [facility] [address] [place] [address] Dr. Tyra Poon EO # 0.3 103/ul Normal 0.0-0.7 [facility] Comment on above: Performed By: #### D DIM #### [facility] [address] [place] [address] Dr. Tyra Poon Eosinophils/100 WBC (Bld) 3.9 % Normal 0.9-7.0 [facility] Comment on above: Performed By: #### D DIM #### [facility] [address] [address] [address] Tyra Poon Erythrocyte distribution width (RBC) [Ratio] 14.1 % Normal 11.0-15.0 [facility] Comment on above: Performed By: #### D DIM #### [facility] [address] [place] [address] Dr. Tyra Poon Hematocrit (Bld) [Volume fraction] 33.5 % Critically low 36.0-48.0 [facility] Comment on above: Performed By: #### D DIM #### [facility] [address] [place] [address] Dr. Tyra Poon Hemoglobin (Bld) [Mass/Vol] 10.3 g/dL Critically low 12.0-16.0 [facility] Comment on above: Performed By: #### D DIM #### [facility] [address] [place] [address] Dr. Tyra Poon IG # 0.03 10e3/ul Normal 0.00-0.03 [facility] Comment on above: Performed By: #### D DIM #### [facility] [address] [place] [address] Dr. Tyra Poon IG % 0.4 % Normal 0.0-0.5 [facility] Comment on above: Performed By: #### D DIM #### [facility] [address] [place] [address] Dr. Tyra Poon LYMPH # 2.3 103/ul Normal 1.2-3.8 [facility] Comment on above: Performed By: #### D DIM #### [facility] [address] [place] [address] Dr. Tyra Poon Lymphocytes/100 WBC (Bld) 34.3 % Normal 20.5-60.0 [facility] Comment on above: Performed By: #### D DIM #### [facility] [address] [place] [address] Dr. Tyra Poon MANUAL DIFF REQ NO Normal [facility] Comment on above: Performed By: #### D DIM #### [facility] [address] [place] [address] Dr. Tyra Poon MCH (RBC) [Entitic mass] 25.9 pg Critically low 26.7-34.0 [facility] Comment on above: Performed By: #### D DIM #### [facility] [address] [place] [address] Dr. Tyra Poon MCHC (RBC) [Mass/Vol] 30.7 g/dL Normal 29.9-35.2 [facility] Comment on above: Performed By: #### D DIM #### [facility] [address] [place] [address] Dr. Tyra Poon MCV (RBC) [Entitic vol] 84.4 fL Normal 81.0-99.0 [facility] Comment on above: Performed By: #### D DIM #### [facility] [address] [place] [address] Dr. Tyra Poon MONO # 0.5 103/ul Normal 0.3-0.8 [facility] Comment on above: Performed By: #### D DIM #### [facility] [address] [place] [address] Dr. Tyra Poon Monocytes/100 WBC (Bld) 7.2 % Normal 1.7-12.0 [facility] Comment on above: Performed By: #### D DIM #### [facility] [address] [place] [address] Dr. Tyra Poon NEUT # 3.6 103/ul Normal 1.4-6.5 [facility] Comment on above: Performed By: #### D DIM #### [facility] [address] [place] [address] Dr. Tyra Poon Neutrophils/100 WBC (Bld) 53.3 % Normal 43.0-75.0 [facility] Comment on above: Performed By: #### D DIM #### [facility] [address] [place] [address] Dr. Tyra Poon Platelet mean volume (Bld) [Entitic vol] 9.1 fL Critically low 9.5-13.5 [facility] Comment on above: Performed By: #### D DIM #### [facility] [address] [place] [address] Dr. Tyra Poon PLT 325 103/ul Normal 150-450 [facility] Comment on above: Performed By: #### D DIM #### [facility] [address] [place] [address] Dr. Tyra Poon RBC 3.97 106/ul Critically low 4.20-5.40 [facility] Comment on above: Performed By: #### D DIM #### [facility] [address] [place] [address] Dr. Tyra Poon WBC 6.7 103/ul Normal 4.0-11.0 [facility] Comment on above: Performed By: #### D DIM #### [facility] [address] [place], [place] [address] Dr. Tyra Poon D-DIMERon 11-27-2022 D-DIMER 0.36 mg/L FEU Normal <=0.59 [facility] Comment on above: Performed By: #### D DIM #### [facility] [address] [address] [address] Tyra Poon D-DIMER COMMENTS SEE BELOW Normal [facility] Comment on above: Result Comment: Incr eases [...] hospitalization. Performed By: #### D DIM #### [facility] [address] [place], [place] [address] Dr. Tyra Poon ECHOCARDIO M/2D COMPLETEon 0 11-27-2022 ECHOCARDIO M/2D COMPLETE Patient: CHAPARRITA BOWERS Exam Date: 11/27/2022 : 1980 Gender:F Ordering : EVANGELINA LIM [facility] Admission #: [id number] Family : Order #: [id number] CLICK HERE TO VIEW EXAM ECHOCARDIOGRAM REPORT [...] White M.D. on 11/29/2022 at 15:33 Normal [facility] FREE T4on 11-27-2022 Free T4 [Mass/Vol] 1.00 ng/dL Normal 0.76-1.46 [facility] Comment on above: Performed By: #### D DIM #### [facility] [address] [place] [address] Dr. Tyra Poon PROF 14(COMP METB)on 023 Albumin [Mass/Vol] 3.1 g/dL Critically low 3.4-5.0 [facility] Comment on above: Performed By: #### T KRISTINE, CMP #### [facility] [address] [place], [place] [address] Dr. Tyra Poon Albumin/Globulin [Mass ratio] 0.8 {ratio} Normal [facility] Comment on above: Performed By: #### T KRISTINE, CMP #### [facility] [address] [address] [address] Tyra Poon ALP [Catalytic activity/Vol] 73 U/L Normal 46-116 [facility] Comment on above: Performed By: #### T SH, CMP #### [facility] [address] [address] [address] Tyra Poon ALT [Catalytic activity/Vol] 17 U/L Normal 14-59 [facility] Comment on above: Performed By: #### T SH, CMP #### [facility] [address] [address] [address] Tyra Poon Anion gap [Moles/Vol] 8.5 mmol/L Normal [facility] Comment on above: Performed By: #### T SH, CMP #### [facility] [address] [place] [address] Dr. Tyra oPon AST [Catalytic activity/Vol] 12 U/L Critically low 15-37 [facility] Comment on above: Performed By: #### T SH, CMP #### [facility] [address] [address] [address] Tyra Poon Bilirubin [Mass/Vol] 0.2 mg/dL Normal 0.2-1.0 [facility] Comment on above: Performed By: #### T SH, CMP #### [facility] [address] [place] [address] Dr. Tyra Poon Calcium [Mass/Vol] 8.5 mg/dL Normal 8.5-10.1 [facility] Comment on above: Performed By: #### T SH, CMP #### [facility] [address] [address] [address] Tyra Poon Chloride [Moles/Vol] 101 mmol/L Normal 98-107 [facility] Comment on above: Performed By: #### T SH, CMP #### [facility] [address] [address] [address] Tyra Poon CO2 [Moles/Vol] 32.3 mmol/L Critically high 21.0-32.0 [facility] Comment on above: Performed By: #### T SH, CMP #### [facility] [address] [address] [address] Tyra Poon Creatinine [Mass/Vol] 0.95 mg/dL Normal 0.55-1.02 [facility] Comment on above: Performed By: #### T SH, CMP #### [facility] [address] [address] [address] Tyra Poon EGFR-AF TAJIK >60 Normal >=60 [facility] Comment on above: Performed By: #### T SH, CMP #### [facility] [address] [address] [address] Tyra Poon EGFR-NON AF TAJIK >60 Normal >=60 [facility] Comment on above: Performed By: #### T SH, CMP #### [facility] [address] [place] [address] Dr. Tyra Poon Globulin (S) [Mass/Vol] 4.1 g/dL Normal [facility] Comment on above: Performed By: #### T SH, CMP #### [facility] [address] [place] [address] Dr. Tyra Poon Glucose [Mass/Vol] 105 mg/dL Normal 74-106 [facility] Comment on above: Performed By: #### T SH, CMP #### [facility] [address] [place] [address] Dr. Tyra Poon Potassium [Moles/Vol] 3.8 mmol/L Normal 3.5-5.1 [facility] Comment on above: Performed By: #### T SH, CMP #### [facility] [address] [place] [address] Dr. Tyra Poon Protein [Mass/Vol] 7.2 g/dL Normal 6.4-8.2 [facility] Comment on above: Performed By: #### T SH, CMP #### [facility] [address] [place] [address] Dr. Tyra Poon Sodium [Moles/Vol] 138 mmol/L Normal 136-145 [facility] Comment on above: Performed By: #### T SH, CMP #### [facility] [address] [place] [address] Dr. Tyra Poon Urea nitrogen [Mass/Vol] 14.0 mg/dL Normal 7.0-18.0 [facility] Comment on above: Performed By: #### T SH, CMP #### [facility] [address] [place] [address] Dr. Tyra Poon Urea nitrogen/Creatinin e [Mass ratio] 14.7 mg/mg Normal [facility] Comment on above: Performed By: #### T SH, CMP #### [facility] [address] [place] [address] Dr. Tyra Poon TSHon 11-27-2022 TSH 1.423 uIU/mL Normal 0.358-3.740 [facility] Comment on above: Performed By: #### T SH, CMP #### [facility] [address] [place] [address] Dr. Tyra Poon BUNon 09-12-2022 Urea nitrogen [Mass/Vol] 10.0 mg/dL Normal 7.0-18.0 [facility] Comment on above: Performed By: #### D DIM #### [facility] [address] [place] [address] Dr. Tyra Poon CBC AUTO DIFFon 09-12-2022 BASO # 0.0 103/ul Normal 0.0-0.1 [facility] Comment on above: Performed By: #### P REGQNT #### [facility] [address] [place] [address] Dr. Tyra Poon Basophils/100 WBC (Bld) 0.1 % Critically low 0.2-2.0 [facility] Comment on above: Performed By: #### P REGQNT #### [facility] [address] [place] [address] Dr. Tyra Poon EO # 0.0 103/ul Normal 0.0-0.7 [facility] Comment on above: Performed By: #### P REGQNT #### [facility] [address] [place] [address] Dr. Tyra Poon Eosinophils/100 WBC (Bld) 0.1 % Critically low 0.9-7.0 [facility] Comment on above: Performed By: #### P REGQNT #### [facility] [address] [place] [address] Dr. Tyra Poon Erythrocyte distribution width (RBC) [Ratio] 14.9 % Normal 11.0-15.0 [facility] Comment on above: Performed By: #### P REGQNT #### [facility] [address] [place] [address] Dr. Tyra Poon Hematocrit (Bld) [Volume fraction] 30.8 % Critically low 36.0-48.0 [facility] Comment on above: Performed By: #### P REGQNT #### [facility] [address] [place] [address] Dr. Tyra Poon Hemoglobin (Bld) [Mass/Vol] 10.1 g/dL Critically low 12.0-16.0 [facility] Comment on above: Performed By: #### P REGQNT #### [facility] [address] [place] [address] Dr. Tyra Poon IG # 0.14 10e3/ul Critically high 0.00-0.03 [facility] Comment on above: Performed By: #### P REGQNT #### [facility] [address] [place] [address] Dr. Tyra Poon IG % 0.9 % Critically high 0.0-0.5 [facility] Comment on above: Performed By: #### P REGQNT #### [facility] [address] [place] [address] Dr. Tyra Poon LYMPH # 2.2 103/ul Normal 1.2-3.8 [facility] Comment on above: Performed By: #### P REGQNT #### [facility] [address] [place] [address] Dr. Tyra Poon Lymphocytes/100 WBC (Bld) 14.6 % Critically low 20.5-60.0 [facility] Comment on above: Performed By: #### P REGQNT #### [facility] [address] [place], [place] [id number] Dr. Tyra Poon MANUAL DIFF REQ NO Normal [facility] Comment on above: Performed By: #### P REGQNT #### [facility] [address] [place] [address] Dr. Tyra Poon MCH (RBC) [Entitic mass] 27.3 pg Normal 26.7-34.0 [facility] Comment on above: Performed By: #### P REGQNT #### [facility] [address] [place] [address] Dr. Tyra Poon MCHC (RBC) [Mass/Vol] 32.8 g/dL Normal 29.9-35.2 [facility] Comment on above: Performed By: #### P REGQNT #### [facility] [address] [place] [address] Dr. Tyra Poon MCV (RBC) [Entitic vol] 83.2 fL Normal 81.0-99.0 [facility] Comment on above: Performed By: #### P REGQNT #### [facility] [address] [place] [address] Dr. Tyra Poon MONO # 1.0 103/ul Critically high 0.3-0.8 [facility] Comment on above: Performed By: #### P REGQNT #### [facility] [address] [place] [address] Dr. Tyra Poon Monocytes/100 WBC (Bld) 6.6 % Normal 1.7-12.0 [facility] Comment on above: Performed By: #### P REGQNT #### [facility] [address] [place] [address] Dr. Tyra Poon NEUT # 11.8 103/ul Critically high 1.4-6.5 [facility] Comment on above: Performed By: #### P REGQNT #### [facility] [address] [place] [address] Dr. Tyra Poon Neutrophils/100 WBC (Bld) 77.7 % Critically high 43.0-75.0 [facility] Comment on above: Performed By: #### P REGQNT #### [facility] [address] [address] [address] Tyra Poon Platelet mean volume (Bld) [Entitic vol] 9.3 fL Critically low 9.5-13.5 [facility] Comment on above: Performed By: #### P REGQNT #### [facility] [address] [address] [address] Tyra Poon PLT 282 103/ul Normal 150-450 [facility] Comment on above: Performed By: #### P REGQNT #### [facility] [address] [address] [address] Tyra Poon RBC 3.70 106/ul Critically low 4.20-5.40 [facility] Comment on above: Performed By: #### P REGQNT #### [facility] [address] [place] [address] Dr. Tyra Poon WBC 15.2 103/ul Critically high 4.0-11.0 [facility] Comment on above: Performed By: #### P REGQNT #### [facility] [address] [place] [address] Dr. Tyra Poon BASO # 0.0 103/ul Normal 0.0-0.1 [facility] Comment on above: Performed By: #### C BC #### [facility] [address] [place] [address] Dr. Tyra Poon Basophils/100 WBC (Bld) 0.2 % Normal 0.2-2.0 [facility] Comment on above: Performed By: #### C BC #### [facility] [address] [place] [address] Dr. Tyra Poon EO # 0.0 103/ul Normal 0.0-0.7 [facility] Comment on above: Performed By: #### C BC #### [facility] [address] [place] [address] Dr. Tyra Poon Eosinophils/100 WBC (Bld) 0.0 % Critically low 0.9-7.0 [facility] Comment on above: Performed By: #### C BC #### [facility] [address] [place] [address] Dr. Tyra Poon Erythrocyte distribution width (RBC) [Ratio] 14.6 % Normal 11.0-15.0 [facility] Comment on above: Performed By: #### C BC #### [facility] [address] [place] [address] Dr. Tyra Poon Hematocrit (Bld) [Volume fraction] 34.6 % Critically low 36.0-48.0 [facility] Comment on above: Performed By: #### C BC #### [facility] [address] [place] [address] Dr. Tyra Poon Hemoglobin (Bld) [Mass/Vol] 11.0 g/dL Critically low 12.0-16.0 [facility] Comment on above: Performed By: #### C BC #### [facility] [address] [place] [address] Dr. Tyra Poon IG # 0.28 10e3/ul Critically high 0.00-0.03 [facility] Comment on above: Performed By: #### C BC #### [facility] [address] [place] [address] Dr. Tyra Poon IG % 1.3 % Critically high 0.0-0.5 [facility] Comment on above: Performed By: #### C BC #### [facility] [address] [place] [address] Dr. Tyra Poon LYMPH # 1.9 103/ul Normal 1.2-3.8 [facility] Comment on above: Performed By: #### C BC #### [facility] [address] [place] [address] Dr. Tyra Poon Lymphocytes/100 WBC (Bld) 9.2 % Critically low 20.5-60.0 [facility] Comment on above: Performed By: #### C BC #### [facility] [address] [place] [address] Dr. Tyra Poon MANUAL DIFF REQ NO Normal [facility] Comment on above: Performed By: #### C BC #### [facility] [address] [place] [address] Dr. Tyra Poon MCH (RBC) [Entitic mass] 27.0 pg Normal 26.7-34.0 [facility] Comment on above: Performed By: #### C BC #### [facility] [address] [place] [address] Dr. Tyra Poon MCHC (RBC) [Mass/Vol] 31.8 g/dL Normal 29.9-35.2 [facility] Comment on above: Performed By: #### C BC #### [facility] [address] [address] [address] Tyra Poon MCV (RBC) [Entitic vol] 84.8 fL Normal 81.0-99.0 [facility] Comment on above: Performed By: #### C BC #### [facility] [address] [place] [address] Dr. Tyra Poon MONO # 1.2 103/ul Critically high 0.3-0.8 [facility] Comment on above: Performed By: #### C BC #### [facility] [address] [place] [address] Dr. Tyra Poon Monocytes/100 WBC (Bld) 5.8 % Normal 1.7-12.0 [facility] Comment on above: Performed By: #### C BC #### [facility] [address] [place] [address] Dr. Tyra Poon NEUT # 17.7 103/ul Critically high 1.4-6.5 [facility] Comment on above: Performed By: #### C BC #### [facility] [address] [place] [address] Dr. Tyra Poon Neutrophils/100 WBC (Bld) 83.5 % Critically high 43.0-75.0 [facility] Comment on above: Performed By: #### C BC #### [facility] [address] [place] [address] Dr. Tyra Poon Platelet mean volume (Bld) [Entitic vol] 9.6 fL Normal 9.5-13.5 [facility] Comment on above: Performed By: #### C BC #### [facility] [address] [place] [address] Dr. Tyra Poon PLT 367 103/ul Normal 150-450 [facility] Comment on above: Performed By: #### C BC #### [facility] [address] [place] [address] Dr. Tyra Poon RBC 4.08 106/ul Critically low 4.20-5.40 [facility] Comment on above: Performed By: #### C BC #### [facility] [address] [place] [address] Dr. Tyra Poon WBC 21.2 103/ul Critically high 4.0-11.0 [facility] Comment on above: Performed By: #### C BC #### [facility] [address] [place] [address] Dr. Tyra Poon CREATININEon 09-12-2022 Creatinine [Mass/Vol] 1.08 mg/dL Critically high 0.55-1.02 [facility] Comment on above: Performed By: #### D DIM #### [facility] [address] [place] [address] Dr. Tyra Poon EGFR-AF TAJIK >60 Normal >=60 [facility] Comment on above: Performed By: #### D DIM #### [facility] [address] [place] [address] Dr. Tyra Poon EGFR-NON AF TAJIK 55 mL/min/1.73m2 Critically low >=60 [facility] Comment on above: Performed By: #### D DIM #### [facility] [address] [place] [address] Dr. Tyra Poon CBC AUTO DIFFon 09-09-2022 BASO # 0.1 103/ul Normal 0.0-0.1 [facility] Comment on above: Performed By: #### U AMIC #### [facility] [address] [place] [address] Dr. Tyar Poon Basophils/100 WBC (Bld) 0.7 % Normal 0.2-2.0 [facility] Comment on above: Performed By: #### U AMIC #### [facility] [address] [place] [address] Dr. Tyra Poon EO # 0.2 103/ul Normal 0.0-0.7 [facility] Comment on above: Performed By: #### U AMIC #### [facility] [address] [address] [address] Tyra Poon Eosinophils/100 WBC (Bld) 2.4 % Normal 0.9-7.0 [facility] Comment on above: Performed By: #### U AMIC #### [facility] [address] [address] [address] Tyra Poon Erythrocyte distribution width (RBC) [Ratio] 14.3 % Normal 11.0-15.0 [facility] Comment on above: Performed By: #### U AMIC #### [facility] [address] [place] [address] Dr. Tyra Poon Hematocrit (Bld) [Volume fraction] 33.3 % Critically low 36.0-48.0 [facility] Comment on above: Performed By: #### U AMIC #### [facility] [address] [place] [address] Dr. Tyra Poon Hemoglobin (Bld) [Mass/Vol] 10.8 g/dL Critically low 12.0-16.0 [facility] Comment on above: Performed By: #### U AMIC #### [facility] [address] [place] [address] Dr. Tyra Poon IG # 0.05 10e3/ul Critically high 0.00-0.03 [facility] Comment on above: Performed By: #### U AMIC #### [facility] [address] [place] [address] Dr. Tyra Poon IG % 0.6 % Critically high 0.0-0.5 [facility] Comment on above: Performed By: #### U AMIC #### [facility] [address] [place] [address] Dr. Tyra Poon LYMPH # 3.0 103/ul Normal 1.2-3.8 [facility] Comment on above: Performed By: #### U AMIC #### [facility] [address] [address] [address] Tyra Poon Lymphocytes/100 WBC (Bld) 33.4 % Normal 20.5-60.0 [facility] Comment on above: Performed By: #### U AMIC #### [facility] [address] [place] [address] Dr. Tyra Poon MANUAL DIFF REQ NO Normal [facility] Comment on above: Performed By: #### U AMIC #### [facility] [address] [place] [address] Dr. Tyra Poon MCH (RBC) [Entitic mass] 27.0 pg Normal 26.7-34.0 [facility] Comment on above: Performed By: #### U AMIC #### [facility] [address] [place] [address] Dr. Tyra Poon MCHC (RBC) [Mass/Vol] 32.4 g/dL Normal 29.9-35.2 [facility] Comment on above: Performed By: #### U AMIC #### [facility] [address] [place] [address] Dr. Tyra Poon MCV (RBC) [Entitic vol] 83.3 fL Normal 81.0-99.0 [facility] Comment on above: Performed By: #### U AMIC #### [facility] [address] [place] [address] Dr. Tyra Poon MONO # 0.6 103/ul Normal 0.3-0.8 [facility] Comment on above: Performed By: #### U AMIC #### [facility] [address] [place] [address] Dr. Tyra Poon Monocytes/100 WBC (Bld) 6.3 % Normal 1.7-12.0 [facility] Comment on above: Performed By: #### U AMIC #### [facility] [address] [place] [address] Dr. Tyra Poon NEUT # 5.0 103/ul Normal 1.4-6.5 [facility] Comment on above: Performed By: #### U AMIC #### [facility] [address] [place] [address] Dr. Tyra Poon Neutrophils/100 WBC (Bld) 56.6 % Normal 43.0-75.0 [facility] Comment on above: Performed By: #### U AMIC #### [facility] [address] [address] [address] Tyra Poon Platelet mean volume (Bld) [Entitic vol] 9.3 fL Critically low 9.5-13.5 [facility] Comment on above: Performed By: #### U AMIC #### [facility] [address] [place] [address] Dr. Tyra Poon PLT 310 103/ul Normal 150-450 [facility] Comment on above: Performed By: #### U AMIC #### [facility] [address] [address] [address] Tyra Poon RBC 4.00 106/ul Critically low 4.20-5.40 [facility] Comment on above: Performed By: #### U AMIC #### [facility] [address] [place] [address] Dr. Tyra Poon WBC 8.9 103/ul Normal 4.0-11.0 [facility] Comment on above: Performed By: #### U AMIC #### [facility] [address] [place] [address] Dr. Tyra Poon PREG QUANT HCGon 09-09-2022 HCG QUANT <1 Normal [facility] Comment on above: Performed By: #### P REGQNT #### [facility] [address] [place] [address] Dr. Tyra Poon HCG RANGE SEE BELOW Normal [facility] Comment on above: Result Comment: 5-50 0.2-1 WEEK 50-500 1-2 WEEKS 100-5,000 2-3 WEEKS 500-10,000 3-4 WEEKS 1,000-50,000 4-5 WEEKS 10,000-100,000 5-6 WEEKS 15,000-200,000 6-8 WEEKS 10,000-100,000 2-3 MONTHS Performed By: #### P REGQNT #### [facility] [address] [place] [address] Dr. Tyra Poon TYPE AND SCREENon 09-09-2022 TYPE AND SCREEN Negative Normal [facility] Comment on above: Performed By: #### P REGQNT #### [facility] [address] [place] [address] Dr. Tyra Poon QUANTIFERON TB GOLD PLUSon 0 07-10-2022 QuantiFERON Criteria Comment Normal [facility] Comment on above: Result Comment: Martínez [...] test. Performed By: #### Q NTTB #### [facility] [address] [place] [address] Dr. Tyra Poon QuantiFERON Incubation Incubation performed. Normal [facility] Comment on above: Performed By: #### Q NTTB #### [facility] [address] [place] [address] Dr. Tyra Poon QuantiFERON Mitogen Value >10.00 Normal [facility] Comment on above: Performed By: #### Q NTTB #### [facility] [address] [place] [address] Dr. Tyra Poon QuantiFERON Nil Value 0.05 IU/mL Normal [facility] Comment on above: Performed By: #### Q NTTB #### [facility] [address] [place] [address] Dr. Tyra Poon QuantiFERON TB1 Ag Value 0.06 IU/mL Normal [facility] Comment on above: Performed By: #### Q NTTB #### [facility] [address] [place] [address] Dr. Tyra Poon QuantiFERON TB2 Ag Value 0.07 IU/mL Normal [facility] Comment on above: Performed By: #### Q NTTB #### [facility] [address] [place] [address] Dr. Tyra Poon QuantiFERON-TB Gold Plus Negative Normal Negative [facility] Comment on above: Result Comment: No r esponse to M tuberculosis antigens detected. Infection with M tuberculosis is unlikely, but high risk individuals should be considered for additional testing (ATS/IDSA/CDC Clinical Practice Guidelines, 2017). The reference range is an Antigen minus Nil result of <0.35 IU/mL. Chemiluminescence immunoassay methodology Performed By: #### Q NTTB #### [facility] [address] [place] [address] Dr. Tyra Poon HEPATITIS B SURFACE ANTIBODY , QUANTon 07-09-2022 Hepatitis B Surf AB Quant <3.1 Critically low Immunity>9.9 [facility] Comment on above: Result Comment: Stat us of Immunity Anti-HBs Level Inconsistent with Immunity 0.0 - 9.9 Consistent with Immunity >9.9 Performed By: #### H EPBSRF #### [facility] [address] [place] [address] Dr. Tyra Poon MMR IMMUNITYon 07-09-2022 Mumps Abs, IgG 142.0 AU/mL Normal Immune >10.9 [facility] Comment on above: Result Comment: Nega tive <9.0 Equivocal 9.0 - 10.9 Positive >10.9 A positive result generally indicates past exposure to Mumps virus or previous vaccination. Performed By: #### P REGQNT #### [facility] [address] [place] [address] Dr. Tyra Poon Rubella Antibodies, IgG 11.90 index Normal Immune >0.99 [facility] Comment on above: Result Comment: Non- immune <0.90 Equivocal 0.90 - 0.99 Immune >0.99 Performed By: #### P REGQNT #### [facility] [address] [place] [address] Dr. Tyra Poon Rubeola Ab, IgG 222.0 AU/mL Normal Immune >16.4 [facility] Comment on above: Result Comment: Nega tive <13.5 Equivocal 13.5 - 16.4 Positive >16.4 Presence of antibodies to Rubeola is presumptive evidence of immunity except when acute infection is suspected. Performed By: #### P REGQNT #### [facility] [address] [address] [address] Tyra Poon VARICELLA IGG ABon 3 Varicella Zoster IgG 3514 index Normal Immune >165 [facility] Comment on above: Result Comment: Nega tive <135 Equivocal 135 - 165 Positive >165 A positive result generally indicates exposure to the pathogen or administration of specific immunoglobulins, but it is not indication of active infection or stage of disease. Performed By: #### U AMIC #### [facility] [address] [place] [address] Dr. Tyra Poon PAP ACOG PANEL 2: 30 to 65on 05-31-2022 . . Normal [facility] Comment on above: Result Comment: Perf ormed at: WB Performed By: #### [id number] #### [facility] [address] [place] [address] Dr. Tyra Poon Age Gdln ACOG Testing 30-65 Normal [facility] Comment on above: Performed By: #### [id number] #### [facility] [address] [place] [address] Dr. Tyra Poon DIAGNOSIS: Comment Normal [facility] Comment on above: Result Comment: NEGA TIVE FOR INTRAEPITHELIAL LESION OR MALIGNANCY. CELLULAR CHANGES ASSOCIATED WITH INFLAMMATION ARE PRESENT. Performed at: WB Performed By: #### [id number] #### [facility] [address] [place] [address] Dr. Tyra Poon HPV Aptima Negative Normal Negative [facility] Comment on above: Result Comment: This nucleic acid amplification test detects fourteen high-risk HPV types (16,18,31,33,35,39,45,51,52,56,58,59,66,68) without differentiation. Performed at: =G Performed By: #### [id number] #### [facility] [address] [place] [address] Dr. Tyra Poon HPV Genotype Reflex Comment Normal [facility] Comment on above: Result Comment: Crit eria not met, HPV Genotype not performed. Performed at: WB Performed By: #### [id number] #### [facility] [address] [place] [address] Dr. Tyra Poon Methodology: Comment Normal [facility] Comment on above: Result Comment: This liquid based ThinPrep(R) pap test was screened with the use of an image guided system. Performed at: WB Performed By: #### [id number] #### [facility] [address] [place] [address] Dr. Tyra Poon Note: Comment Normal [facility] Comment on above: Result Comment: The Pap smear is a screening test designed to aid in the detection of premalignant and malignant conditions of the uterine cervix. It is not a diagnostic procedure and should not be used as the sole means of detecting cervical cancer. Both false-positive and false-negative reports do occur. . Performed at: WB Performed By: #### [id number] #### [facility] [address] [place] [address] Dr. Tyra Poon Performed by: Comment Normal [facility] Comment on above: Result Comment: [employer] (ASCP) Performed at: WB Performed By: #### [id number] #### [facility] [address] [place] [address] Dr. Tyra Poon Specimen adequacy: Comment Normal [facility] Comment on above: Result Comment: Sati sfactory for evaluation. Endocervical and/or squamous metaplastic cells (endocervical component) are present. Performed at: WB Performed By: #### [id number] #### [facility] [address] [place] [address] Dr. Tyra Poon US PELVIS AND TRANSVAGon [...] TIM PAZ Date: 2022-05-14 09:50 Normal [facility] AMYLASEon 04-30-2022 Amylase [Catalytic activity/Vol] 40 U/L Normal 25-115 [facility] Comment on above: Performed By: #### D DIM #### [facility] [address] [place] [address] Dr. Tyra Poon CBC AUTO DIFFon 04-30-2022 BASO # 0.1 103/ul Normal 0.0-0.1 [facility] Comment on above: Performed By: #### C BC #### [facility] [address] [place] [address] Dr. Tyra Poon Basophils/100 WBC (Bld) 1.3 % Normal 0.2-2.0 [facility] Comment on above: Performed By: #### C BC #### [facility] [address] [place] [address] Dr. Tyra Poon EO # 0.2 103/ul Normal 0.0-0.7 [facility] Comment on above: Performed By: #### C BC #### [facility] [address] [place] [address] Dr. Tyra Poon Eosinophils/100 WBC (Bld) 2.9 % Normal 0.9-7.0 [facility] Comment on above: Performed By: #### C BC #### [facility] [address] [place] [address] Dr. Tyra Poon Erythrocyte distribution width (RBC) [Ratio] 14.4 % Normal 11.0-15.0 [facility] Comment on above: Performed By: #### C BC #### [facility] [address] [place] [address] Dr. Tyra Poon Hematocrit (Bld) [Volume fraction] 36.8 % Normal 36.0-48.0 [facility] Comment on above: Performed By: #### C BC #### [facility] [address] [place] [address] Dr. Tyra Poon Hemoglobin (Bld) [Mass/Vol] 12.0 g/dL Normal 12.0-16.0 [facility] Comment on above: Performed By: #### C BC #### [facility] [address] [place] [address] Dr. Tyra Poon IG # 0.05 10e3/ul Critically high 0.00-0.03 [facility] Comment on above: Performed By: #### C BC #### [facility] [address] [place] [address] Dr. Tyra Poon IG % 0.6 % Critically high 0.0-0.5 [facility] Comment on above: Performed By: #### C BC #### [facility] [address] [place] [address] Dr. Tyra Poon LYMPH # 3.3 103/ul Normal 1.2-3.8 [facility] Comment on above: Performed By: #### C BC #### [facility] [address] [place] [address] Dr. Tyra Poon Lymphocytes/100 WBC (Bld) 38.9 % Normal 20.5-60.0 [facility] Comment on above: Performed By: #### C BC #### [facility] [address] [place] [address] Dr. Tyra Poon MANUAL DIFF REQ NO Normal [facility] Comment on above: Performed By: #### C BC #### [facility] [address] [place] [address] Dr. Tyra Poon MCH (RBC) [Entitic mass] 27.0 pg Normal 26.7-34.0 [facility] Comment on above: Performed By: #### C BC #### [facility] [address] [address] [address] Tyra Poon MCHC (RBC) [Mass/Vol] 32.6 g/dL Normal 29.9-35.2 [facility] Comment on above: Performed By: #### C BC #### [facility] [address] [address] [address] Tyra Poon MCV (RBC) [Entitic vol] 82.9 fL Normal 81.0-99.0 [facility] Comment on above: Performed By: #### C BC #### [facility] [address] [place] [address] Dr. Tyra Poon MONO # 0.6 103/ul Normal 0.3-0.8 [facility] Comment on above: Performed By: #### C BC #### [facility] [address] [place] [address] Dr. Tyra Poon Monocytes/100 WBC (Bld) 6.7 % Normal 1.7-12.0 [facility] Comment on above: Performed By: #### C BC #### [facility] [address] [address] [address] Tyra Poon NEUT # 4.2 103/ul Normal 1.4-6.5 [facility] Comment on above: Performed By: #### C BC #### [facility] [address] [place] [address] Dr. Tyra Poon Neutrophils/100 WBC (Bld) 49.6 % Normal 43.0-75.0 [facility] Comment on above: Performed By: #### C BC #### [facility] [address] [place] [address] Dr. Tyra Pono Platelet mean volume (Bld) [Entitic vol] 9.4 fL Critically low 9.5-13.5 [facility] Comment on above: Performed By: #### C BC #### [facility] [address] [place] [address] Dr. Tyra Poon PLT 347 103/ul Normal 150-450 [facility] Comment on above: Performed By: #### C BC #### [facility] [address] [place], [place] [address] Dr. Tyra Poon RBC 4.44 106/ul Normal 4.20-5.40 [facility] Comment on above: Performed By: #### C BC #### [facility] [address] [place], [place] [address] Dr. Tyra Poon WBC 8.4 103/ul Normal 4.0-11.0 [facility] Comment on above: Performed By: #### C BC #### [facility] [address] [place], [place] [address] ABD/PELVIS WO CONon [...] TIM PAZ Date: 2022-04-30 10:10 Normal [facility] ER URINE PROFILEon 2 Bilirubin Ql (U) Negative Normal NEGATIVE [facility] Comment on above: Performed By: #### U AMIC #### [facility] [address] [address] [address] Tyra Poon Clarity (U) CLEAR Normal CLEAR [facility] Comment on above: Performed By: #### U AMIC #### [facility] [address] [address] [address] Tyra Poon Color (U) YELLOW Normal YELLOW [facility] Comment on above: Performed By: #### U AMIC #### [facility] [address] [address] [address] Tyra BORREGO A micrscopic examination will be performed if indicated. Normal [facility] Comment on above: Performed By: #### U AMIC #### [facility] [address] [address] [address] Tyra Poon Glucose Ql (U) Negative Normal NEGATIVE [facility] Comment on above: Performed By: #### U AMIC #### [facility] [address] [address] [address] Tyra Poon Hemoglobin Ql (U) Negative Normal NEGATIVE [facility] Comment on above: Performed By: #### U AMIC #### [facility] [address] [address] [address] Tyra Poon Ketones Ql (U) Negative Normal NEGATIVE [facility] Comment on above: Performed By: #### U AMIC #### [facility] [address] [address] [address] Tyra Poon LEUKOCYTES Negative Normal NEGATIVE [facility] Comment on above: Performed By: #### U AMIC #### [facility] [address] [address] [address] Tyra oPon Nitrite Ql (U) Negative Normal NEGATIVE [facility] Comment on above: Performed By: #### U AMIC #### [facility] [address] [address] [address] Tyra Poon pH (U) 6.0 [pH] Normal 5-9 [facility] Comment on above: Performed By: #### U AMIC #### [facility] [address] [address] [address] Tyra Poon SPEC GRAVITY >=1.030 Abnormal 1.005-<=1.025 [facility] Comment on above: Performed By: #### U AMIC #### [facility] [address] [address] [address] Tyra Poon UA PROTEIN Negative Normal NEGATIVE/ TRACE [facility] Comment on above: Performed By: #### U AMIC #### [facility] [address] [place] [address] Dr. Tyra Poon UR MICRO IND NOT INDICATED Normal [facility] Comment on above: Performed By: #### U AMIC #### [facility] [address] [place] [address] Dr. Tyra Poon Urobilinogen Qn (U) 0.2 {[place]'U}/dL Normal 0.2 - 1.0 [facility] Comment on above: Performed By: #### U AMIC #### [facility] [address] [place] [address] Dr. Tyra Poon LIPASEon 04-30-2022 Lipase [Catalytic activity/Vol] 83.0 U/L Normal 73.0-393.0 [facility] Comment on above: Performed By: #### D DIM #### [facility] [address] [place] [address] Dr. Tyra Poon URon 04-30-2022 , QUAL Negative Normal NEGATIVE [facility] Comment on above: Performed By: #### U AMIC #### [facility] [address] [place] [address] Dr. Tyra Poon PROF 14(COMP METB)on 022 Albumin [Mass/Vol] 3.6 g/dL Normal 3.4-5.0 [facility] Comment on above: Performed By: #### D DIM #### [facility] [address] [address] [address] Tyra Poon Albumin/Globulin [Mass ratio] 0.8 {ratio} Normal [facility] Comment on above: Performed By: #### D DIM #### [facility] [address] [address] [address] Tyra Poon ALP [Catalytic activity/Vol] 65 U/L Normal 46-116 [facility] Comment on above: Performed By: #### D DIM #### [facility] [address] [address] [address] Tyra Poon ALT [Catalytic activity/Vol] 13 U/L Critically low 14-59 [facility] Comment on above: Performed By: #### D DIM #### [facility] [address] [place] [address] Dr. Tyra Poon Anion gap [Moles/Vol] 12.5 mmol/L Normal [facility] Comment on above: Performed By: #### D DIM #### [facility] [address] [place] [address] Dr. Tyra Poon AST [Catalytic activity/Vol] 12 U/L Critically low 15-37 [facility] Comment on above: Performed By: #### D DIM #### [facility] [address] [place] [address] Dr. Tyra Poon Bilirubin [Mass/Vol] 0.3 mg/dL Normal 0.2-1.0 [facility] Comment on above: Performed By: #### D DIM #### [facility] [address] [place] [address] Dr. Tyra Poon Calcium [Mass/Vol] 8.8 mg/dL Normal 8.5-10.1 [facility] Comment on above: Performed By: #### D DIM #### [facility] [address] [place] [address] Dr. Tyra Poon Chloride [Moles/Vol] 103 mmol/L Normal 98-107 [facility] Comment on above: Performed By: #### D DIM #### [facility] [facility] [address] [address] [address] Tyra Poon CO2 [Moles/Vol] 26.3 mmol/L Normal 21.0-32.0 [facility] Comment on above: Performed By: #### D DIM #### [facility] [address] [address] [address] Tyra Poon Creatinine [Mass/Vol] 0.87 mg/dL Normal 0.55-1.02 [facility] Comment on above: Performed By: #### D DIM #### [facility] [address] [address] [address] Tyra Poon EGFR-AF TAJIK >60 Normal >=60 [facility] Comment on above: Performed By: #### D DIM #### [facility] [address] [address] [address] Tyra Poon EGFR-NON AF TAJIK >60 Normal >=60 [facility] Comment on above: Performed By: #### D DIM #### [facility] [address] [address] [address] Tyra Poon Globulin (S) [Mass/Vol] 4.3 g/dL Normal [facility] Comment on above: Performed By: #### D DIM #### [facility] [address] [place] [address] Dr. Tyra Poon Glucose [Mass/Vol] 120 mg/dL Critically high 74-106 T [facility] Comment on above: Performed By: #### D DIM #### [facility] [address] [address] [address] Tyra Poon Potassium [Moles/Vol] 3.8 mmol/L Normal 3.5-5.1 [facility] Comment on above: Performed By: #### D DIM #### [facility] [address] [place] [address] Dr. Tyra Poon Protein [Mass/Vol] 7.9 g/dL Normal 6.4-8.2 [facility] Comment on above: Performed By: #### D DIM #### [facility] [address] [place] [address] Dr. Tyra Poon Sodium [Moles/Vol] 138 mmol/L Normal 136-145 [facility] Comment on above: Performed By: #### D DIM #### [facility] [address] [place] [address] Dr. Tyra Poon Urea nitrogen [Mass/Vol] 11.0 mg/dL Normal 7.0-18.0 [facility] Comment on above: Performed By: #### D DIM #### [facility] [address] [place] [address] Dr. Tyra Poon Urea nitrogen/Creatinin e [Mass ratio] 12.6 mg/mg Normal [facility] Comment on above: Performed By: #### D DIM #### [facility] [address] [place] [address] Dr. Tyra Poon CBC AUTO DIFFon 01-12-2022 BASO # 0.1 103/ul Normal 0.0-0.1 [facility] Comment on above: Performed By: #### D DIM #### [facility] [address] [place] [address] Dr. Tyra Poon Basophils/100 WBC (Bld) 0.9 % Normal 0.2-2.0 [facility] Comment on above: Performed By: #### D DIM #### [facility] [address] [place] [address] Dr. Tyra Poon EO # 0.2 103/ul Normal 0.0-0.7 [facility] Comment on above: Performed By: #### D DIM #### [facility] [address] [place] [address] Dr. Tyra Poon Eosinophils/100 WBC (Bld) 2.2 % Normal 0.9-7.0 [facility] Comment on above: Performed By: #### D DIM #### [facility] [address] [place] [address] Dr. Tyra Poon Erythrocyte distribution width (RBC) [Ratio] 14.0 % Normal 11.0-15.0 [facility] Comment on above: Performed By: #### D DIM #### [facility] [address] [place] [address] Dr. Tyra Poon Hematocrit (Bld) [Volume fraction] 34.1 % Critically low 36.0-48.0 [facility] Comment on above: Performed By: #### D DIM #### [facility] [address] [place] [address] Dr. Tyra Poon Hemoglobin (Bld) [Mass/Vol] 10.7 g/dL Critically low 12.0-16.0 [facility] Comment on above: Performed By: #### D DIM #### [facility] [address] [place] [address] Dr. Tyra Poon IG # 0.05 10e3/ul Critically high 0.00-0.03 [facility] Comment on above: Performed By: #### D DIM #### [facility] [address] [place] [address] Dr. Tyra Poon IG % 0.6 % Critically high 0.0-0.5 [facility] Comment on above: Performed By: #### D DIM #### [facility] [address] [place] [address] Dr. Tyra Poon LYMPH # 2.6 103/ul Normal 1.2-3.8 [facility] Comment on above: Performed By: #### D DIM #### [facility] [address] [place] [address] Dr. Tyra Poon Lymphocytes/100 WBC (Bld) 31.8 % Normal 20.5-60.0 [facility] Comment on above: Performed By: #### D DIM #### [facility] [address] [place] [address] Dr. Tyra Poon MANUAL DIFF REQ NO Normal [facility] Comment on above: Performed By: #### D DIM #### [facility] [address] [place] [address] Dr. Tyra Poon MCH (RBC) [Entitic mass] 26.6 pg Critically low 26.7-34.0 [facility] Comment on above: Performed By: #### D DIM #### [facility] [address] [place] [address] Dr. Tyra Poon MCHC (RBC) [Mass/Vol] 31.4 g/dL Normal 29.9-35.2 [facility] Comment on above: Performed By: #### D DIM #### [facility] [address] [address] [address] Tyra Poon MCV (RBC) [Entitic vol] 84.8 fL Normal 81.0-99.0 [facility] Comment on above: Performed By: #### D DIM #### [facility] [address] [address] [address] Tyra Poon MONO # 0.5 103/ul Normal 0.3-0.8 [facility] Comment on above: Performed By: #### D DIM #### [facility] [address] [place] [address] Dr. Tyra Poon Monocytes/100 WBC (Bld) 6.4 % Normal 1.7-12.0 [facility] Comment on above: Performed By: #### D DIM #### [facility] [address] [place] [address] Dr. Tyra Poon NEUT # 4.7 103/ul Normal 1.4-6.5 [facility] Comment on above: Performed By: #### D DIM #### [facility] [address] [place] [address] Dr. Tyra Poon Neutrophils/100 WBC (Bld) 58.1 % Normal 43.0-75.0 [facility] Comment on above: Performed By: #### D DIM #### [facility] [address] [place] [address] Dr. Tyra Poon Platelet mean volume (Bld) [Entitic vol] 9.7 fL Normal 9.5-13.5 [facility] Comment on above: Performed By: #### D DIM #### [facility] [address] [place] [address] Dr. Tyra Poon PLT 318 103/ul Normal 150-450 [facility] Comment on above: Performed By: #### D DIM #### [facility] [address] [place] [address] Dr. Tyra Poon RBC 4.02 106/ul Critically low 4.20-5.40 [facility] Comment on above: Performed By: #### D DIM #### [facility] [address] [place] [address] Dr. Tyra Poon WBC 8.0 103/ul Normal 4.0-11.0 [facility] Comment on above: Performed By: #### D DIM #### [facility] [address] [place] [address] Dr. Tyra Poon FERRITINon 01-12-2022 Ferritin [Mass/Vol] 12.0 ng/mL Normal 6.2-137.0 [facility] Comment on above: Performed By: #### D DIM #### [facility] [address] [place] [address] Dr. Tyra Poon FREE T4on 01-12-2022 Free T4 [Mass/Vol] 1.04 ng/dL Normal 0.76-1.46 [facility] Comment on above: Performed By: #### P REGQNT #### [facility] [address] [place] [address] Dr. Tyra Poon IRONon 01-12-2022 Iron [Mass/Vol] 32.0 ug/dL Critically low 50.0-170.0 [facility] Comment on above: Performed By: #### D DIM #### [facility] [address] [place] [address] Dr. Tyra Poon LIPID PROFILEon 01-12-2022 CHOL-HDL RATIO NORM SEE BELOW Normal [facility] Comment on above: Result Comment: 3.3 - 4.4 LOW RISK 4.4 - 7.1 AVERAGE RISK 7.1 - 11.0 MODERATE RISK >11.0 HIGH RISK Performed By: #### U AMIC #### [facility] [address] [place] [address] Dr. Tyra Poon Cholesterol [Mass/Vol] 236 mg/dL Critically high <=200 [facility] Comment on above: Performed By: #### U AMIC #### [facility] [address] [place] [address] Dr. Tyra Poon Cholesterol in HDL [Mass/Vol] 65 mg/dL Critically high 40-60 [facility] Comment on above: Performed By: #### U AMIC #### [facility] [address] [address] [address] Tyra Poon Cholesterol in LDL [Mass/Vol] 149.8 mg/dL Normal [facility] Comment on above: Performed By: #### U AMIC #### [facility] [address] [address] [address] Tyra Poon Cholesterol.total/ Cholesterol in HDL [Mass ratio] 3.6 {ratio} Normal [facility] Comment on above: Performed By: #### U AMIC #### [facility] [address] [address] [address] Tyra Poon HDL NORMAL > or = 60 mg/dl - LO W CARDIOVASCULAR RISK <40 mg/dl - HIGH CARDIOVASCULAR RISK Normal [facility] Comment on above: Performed By: #### U AMIC #### [facility] [address] [address] [address] Tyra Poon LDL CALC NORMAL SEE BELOW Normal [facility] Comment on above: Result Comment: <100 mg/dl OPTIMAL 100 - 129 mg/dl NEAR OR ABOVE OPTIMAL 130 - 159 mg/dl BORDERLINE HIGH 160 - 189 mg/dl HIGH >190 mg/dl VERY HIGH Performed By: #### U AMIC #### [facility] [address] [address] [address] Tyra Poon Triglyceride [Mass/Vol] 106 mg/dL Normal <=150 [facility] Comment on above: Performed By: #### U AMIC #### [facility] [address] [address] [address] Tyra Poon VLDL CALC 21.2 mg/dL Normal [facility] Comment on above: Performed By: #### U AMIC #### [facility] [address] [address] [address] Tyra Poon PROF 14(COMP METB)on 022 Albumin [Mass/Vol] 3.4 g/dL Normal 3.4-5.0 [facility] Comment on above: Performed By: #### U AMIC #### [facility] [address] [address] [address] Tyra Poon Albumin/Globulin [Mass ratio] 0.8 {ratio} Normal [facility] Comment on above: Performed By: #### U AMIC #### [facility] [address] [place] [address] Dr. Tyra Poon ALP [Catalytic activity/Vol] 63 U/L Normal 46-116 [facility] Comment on above: Performed By: #### U AMIC #### [facility] [address] [address] [address] Tyra Poon ALT [Catalytic activity/Vol] 24 U/L Normal 14-59 [facility] Comment on above: Performed By: #### U AMIC #### [facility] [address] [place] [address] Dr. Tyra Poon Anion gap [Moles/Vol] 10.4 mmol/L Normal [facility] Comment on above: Performed By: #### U AMIC #### [facility] [address] [place] [address] Dr. Tyra Poon AST [Catalytic activity/Vol] 14 U/L Critically low 15-37 [facility] Comment on above: Performed By: #### U AMIC #### [facility] [address] [place] [address] Dr. Tyra Poon Bilirubin [Mass/Vol] 0.3 mg/dL Normal 0.2-1.0 [facility] Comment on above: Performed By: #### U AMIC #### [facility] [address] [place] [address] Dr. Tyra Poon Calcium [Mass/Vol] 8.7 mg/dL Normal 8.5-10.1 [facility] Comment on above: Performed By: #### U AMIC #### [facility] [address] [place] [address] Dr. Tyra Poon Chloride [Moles/Vol] 101 mmol/L Normal 98-107 [facility] Comment on above: Performed By: #### U AMIC #### [facility] [address] [place] [address] Dr. Tyra Poon CO2 [Moles/Vol] 29.8 mmol/L Normal 21.0-32.0 [facility] Comment on above: Performed By: #### U AMIC #### [facility] [address] [address] [address] Tyra Poon Creatinine [Mass/Vol] 0.89 mg/dL Normal 0.55-1.02 [facility] Comment on above: Performed By: #### U AMIC #### [facility] [address] [address] [address] Tyra Poon EGFR-AF TAJIK >60 Normal >=60 [facility] Comment on above: Performed By: #### U AMIC #### [facility] [address] [address] [address] Tyra Poon EGFR-NON AF TAJIK >60 Normal >=60 [facility] Comment on above: Performed By: #### U AMIC #### [facility] [address] [place] [address] Dr. Tyra Poon Globulin (S) [Mass/Vol] 4.3 g/dL Normal [facility] Comment on above: Performed By: #### U AMIC #### [facility] [address] [place] [address] Dr. Tyra Poon Glucose [Mass/Vol] 107 mg/dL Critically high 74-106 [facility] Comment on above: Performed By: #### U AMIC #### [facility] [address] [place] [address] Dr. Tyra Poon Potassium [Moles/Vol] 4.2 mmol/L Normal 3.5-5.1 [facility] Comment on above: Performed By: #### U AMIC #### [facility] [address] [address] [address] Tyra Poon Protein [Mass/Vol] 7.7 g/dL Normal 6.4-8.2 [facility] Comment on above: Performed By: #### U AMIC #### [facility] [address] [address] [address] Tyra Poon Sodium [Moles/Vol] 137 mmol/L Normal 136-145 [facility] Comment on above: Performed By: #### U AMIC #### [facility] [address] [place] [address] Dr. Tyra Poon Urea nitrogen [Mass/Vol] 15.0 mg/dL Normal 7.0-18.0 [facility] Comment on above: Performed By: #### U AMIC #### [facility] [address] [place] [address] Dr. Tyra Poon Urea nitrogen/Creatinin e [Mass ratio] 16.9 mg/mg Normal [facility] Comment on above: Performed By: #### U AMIC #### [facility] [address] [place] [address] Dr. Tyra Poon TSHon 01-12-2022 TSH 2.550 uIU/mL Normal 0.358-3.740 [facility] Comment on above: Performed By: #### U AMIC #### [facility] [address] [place] [address] Dr. Tyra Poon UA RANDOM W/MICROSCOPICon BACTERIA NONE SEEN Normal NONE SEEN [facility] Comment on above: Performed By: #### U AMIC #### [facility] [address] [place] [address] Dr. Tyra Poon Bilirubin Ql (U) Negative Normal NEGATIVE [facility] Comment on above: Performed By: #### U AMIC #### [facility] [address] [place] [address] Dr. Tyra Poon CAST NONE SEEN Normal NONE SEEN [facility] Comment on above: Performed By: #### U AMIC #### [facility] [address] [place] [address] Dr. Tyra Poon Clarity (U) CLEAR Normal CLEAR [facility] Comment on above: Performed By: #### U AMIC #### [facility] [address] [place] [address] Dr. Tyra Poon Color (U) YELLOW Normal YELLOW [facility] Comment on above: Performed By: #### U AMIC #### [facility] [address] [place], [place] [id number] Dr. Tyra Poon Crystals LM Nom (Urine sed) NONE SEEN Normal NONE SEEN [facility] Comment on above: Performed By: #### U AMIC #### [facility] [address] [address] [address] Tyra Poon Epithelial cells LM Ql (Urine sed) RARE Normal NONE SEEN /RARE [facility] Comment on above: Performed By: #### U AMIC #### [facility] [address] [address] [address] Tyra Poon Glucose Ql (U) Negative Normal NEGATIVE [facility] Comment on above: Performed By: #### U AMIC #### [facility] [address] [place] [address] Dr. Tyra Poon Hemoglobin Ql (U) MODERATE Abnormal NEGATIVE [facility] Comment on above: Performed By: #### U AMIC #### [facility] [address] [place] [address] Dr. Tyra Poon Ketones Ql (U) Negative Normal NEGATIVE [facility] Comment on above: Performed By: #### U AMIC #### [facility] [address] [address] [address] Tyra Poon LEUKOCYTES Negative Normal NEGATIVE [facility] Comment on above: Performed By: #### U AMIC #### [facility] [address] [address] [address] Tyra Poon MUCOUS NONE SEEN Normal NONE SEEN [facility] Comment on above: Performed By: #### U AMIC #### [facility] [address] [address] [address] Tyra Poon Nitrite Ql (U) Negative Normal NEGATIVE [facility] Comment on above: Performed By: #### U AMIC #### [facility] [address] [address] [address] Tyra Poon pH (U) 6.0 [pH] Normal 5-9 [facility] Comment on above: Performed By: #### U AMIC #### [facility] [address] [address] [address] Tyra Poon RBC 0-2 Normal 0-2 [facility] Comment on above: Performed By: #### U AMIC #### [facility] [address] [address] [address] Tyra Poon SPEC GRAVITY 1.025 Normal 1.005-<=1.025 [facility] Comment on above: Performed By: #### U AMIC #### [facility] [address] [address] [address] Tyra Poon UA PROTEIN Negative Normal NEGATIVE/ TRACE [facility] Comment on above: Performed By: #### U AMIC #### [facility] [address] [address] [address] Tyra Poon Urobilinogen Qn (U) 0.2 {[place]'U}/dL Normal 0.2 - 1.0 [facility] Comment on above: Performed By: #### U AMIC #### [facility] [address] [address] [address] Tyra Poon WBC NONE SEEN Normal NONE SEEN [facility] Comment on above: Performed By: #### U AMIC #### [facility] [address] [address] [address] Tyra Poon Encounters Encounter Date Encounter [...] Not Available Start: 11-27-2022 End: 11-28-2022 ambulatory MOUNTING MACHINE OPERATOR BERNICE AICHHOLZ Facility:[facility] Start: 11-17-2022 End: 11-18-2022 ambulatory MOUNTING MACHINE OPERATOR BERNICE AICHHOLZ Facility:[facility] Start: 09-12-2022 Encounter for prepro cedural laboratory examination DR HONORIO SHANE . [facility] Start: 09-11-2022 End: 09-12-2022 ambulatory MOUNTING MACHINE OPERATOR BERNICE CARINA Facility:[facility] Start: 09-09-2022 End: 09-10-2022 ambulatory MOUNTING MACHINE OPERATOR BERNICE BASILZ Facility:[facility] Start: 09-09-2022 End: 09-10-2022 Encounter for preprocedural laboratory examination MOUNTING MACHINE OPERATOR BERNICE CARINA Facility:[facility] Start: 09-02-2022 Encounter for prepro cedural cardiovascular examination DR HONORIO SHANE . [facility] Start: 08-28-2022 End: 08-29-2022 ambulatory MOUNTING MACHINE OPERATOR BERNICE BASILZ Facility:[facility] Start: 08-28-2022 End: 08-29-2022 Encounter for preprocedural cardiovascular examination MOUNTING MACHINE OPERATOR BERNICE LIM Facility:[facility] Start: 07-08-2022 End: 07-09-2022 ambulatory MOUNTING MACHINE OPERATOR BERNICE CARINA Facility:[facility] Start: 05-21-2022 End: 05-21-2022 ambulatory MOUNTING MACHINE OPERATOR BERNICE CARINA Facility:[facility] Start: 05-13-2022 End: 05-14-2022 ambulatory MOUNTING MACHINE OPERATOR BERNICE CARINA Facility:[facility] Start: 04-30-2022 End: 04-30-2022 ambulatory LU DEMARIO . Facility:[facility] Start: 01-12-2022 End: 01-13-2022 ambulatory MOUNTING MACHINE OPERATOR BERNICE CARINA Facility:[facility] Payers Date Payer Category Payer Unknown [id number] 2022 Unknown [id number] 1979 Unknown [id number] 1979 Unknown [id number] 1979 Unknown [id number] .16.84 [id number] 1979 Unknown [id number] [id number] 1979 Unknown [id number] 2.16.84 [id number] 1979 Unknown [id number] 2.16.84 [id number] 1979 Unknown [id number] 2.16.84 [id number] 1979 Unknown [id number] 2.16.84 [id number] 1979 Unknown [id number] 2.16.84 [id number] 1979 Unknown [id number] 2.16.84 [id number] 1979 Unknown [id number] 2.16.84 0.1.647479.3.579.2.1259 1979 Unknown [id number] 2.16.84 0.1.945905.3.579.2.1259 1979 Unknown [id number] 2.16.84 0.1.661928.3.579.2.1259 1979 Unknown [id number] 2.16.84 0.1.175981.3.579.2.1259 1979 Unknown [id number] 2.16.84 [id number] 1979 Unknown [id number] 2.16.84 [id number] 1959 Private Health Insurance [id number] Self-pay Unknown [id number] 2.16.84 [id number] Clinical Note 09-11-2022 Note Date & Type Note Facility 09-11-2022 Note OP Note OPERATION DATE: 09/11/2022 PROCEDURE: Robotic assisted laparoscopic hysterectomy with bilateral salpingectomy with cystoscopy. PREOPERATIVE DIAGNOSIS: Cervical dysplasia, history of abnormal cervical cells, menorrhagia, dyspareunia, dysmenorrhea. POSTOPERATIVE DIAGNOSIS: Cervical dysplasia, history of abnormal cervical cells, menorrhagia, dyspareunia, dysmenorrhea. ANESTHESIA: General. SURGEON: Honorio Shane D.O. CHIEF SECURITY AND SAFETY OFFICER: JOSH Gonzales URINE OUTPUT: Yellow and clear. [...] Anesthesia first. Patient tolerated procedure well. [facility] Discharge summary note 09-11-2022 Note Date & [...] free and no longer on narcotics. [facility] Clinical Note 09-11-2022 Note Date & Type Note Facility 09-11-2022 Note OPERATIVE NOTE OPERATION DATE: 09/12/2022 PROCEDURE: Robotic assisted laparoscopic hysterectomy with bilateral salpingectomy with cystoscopy. PREOPERATIVE DIAGNOSIS: Cervical dysplasia, history of abnormal cervical cells, menorrhagia, dyspareunia, dysmenorrhea. POSTOPERATIVE DIAGNOSIS: Cervical dysplasia, history of abnormal cervical cells, menorrhagia, dyspareunia, dysmenorrhea. ANESTHESIA: General. SURGEON: Honorio Shane D.O. CHIEF SECURITY AND SAFETY OFFICER: JOSH Gonzales URINE OUTPUT: Yellow and clear. [...] Anesthesia first. Patient tolerated procedure well. [facility] Summary Purpose Family History No Family History Records FoundNo Family History Records Found Advance Directives No Advanced Directives Records FoundNo Advanced Directives Records Found Additional Source Comments INFORMATION SOURCE (unrecogn ized section and content) DATE CREATED AUTHOR 12/11/2022 [facility] DATE CREATED AUTHOR 'S ORGANIZ ATION 02/25/2024 [facility] EPIC FOR RECORDS PERTAINING TO [...] BE BASED ON THE PRIMARY CLINICAL RECORDS. [facility] [employer] [facility]. provides no warranty or guarantee of the accuracy or completeness of information in this document.
[2024-02-29 08:10] VITALS: BP 108/65; PULSE 82; TEMP 36.6; O2SAT 97; BMI 51.3
[2024-02-29] MEDS: LACTATED RINGER'S SOLUTION 1,000 ML 50 ML IV (08:33)
--- NOTE | 2024-02-29 08:55 | W.PM.PROCNOT ---
Date of procedure: 02/29/24 Pre-op diagnosis: rectal bleeding Post-op diagnosis: other (mild internal hemorrhoids ) Procedure: Previous colonoscopy: never procedure: diagnostic colonoscopy The patient was given IV conscious sedation.? The patient's SPO2 remained above 90% throughout the procedure. The colonoscope was inserted per rectum and advanced under direct vision to the cecum without difficulty.? The prep was good.? Findings: Terminal ileum os: normal Cecum/Ascending colon: normal Transverse colon: normal Descending/Sigmoid colon: normal Rectum/Anus: examined in normal and retroflexed positions and was normal aside for mild internal hemorrhoids Withdrawal Time was (minutes): 8 The colon was decompressed and the scope was removed.? The patient tolerated the procedure well. Recommendations/Plan: 1.? Lifestyle and dietary modifications as discussed 2.? F/U in 10 years 3.? Discussed with the family Anesthesia: MAC Surgeon: Shola Smith Estimated blood loss (mL): 0 Pathology: none sent Condition: stable Disposition: PACU
[2024-02-29 10:04] VITALS: BP 93/61; PULSE 74; O2SAT 96
[2024-02-29 10:19] VITALS: BP 112/77; PULSE 70; O2SAT 94
== END 2024-02-29 10:35 | disposition home or self-care (01) ==
PROVIDERS: PCP Nurse Practitioner; Visit Provider Surgery
PROC: (CPT 00811; principal; 2024-02-29 09:10)
DX: K62.5 Hemorrhage of anus and rectum (principal); K64.8 Other hemorrhoids; Z90.710 Acquired absence of both cervix and uterus; E66.01 Morbid (severe) obesity due to excess calories; Z68.43 Body mass index [BMI] 50.0-59.9, adult; G47.33 Obstructive sleep apnea (adult) (pediatric); I10 Essential (primary) hypertension; K21.9 Gastro-esophageal reflux disease without esophagitis
CPT/HCPCS: 00811; 45378; J2704

== ENCOUNTER 2024-09-20 17:24 | Outpatient (REF) | payer SELFPAY ==
--- OUTSIDE RECORDS SUMMARY | 2024-09-20 17:45 | XMS_ITS | CCD ---
Author Organization [facility]ini[facility] Care Team Providers Care Assistant Branch Manager Name Role Phone AICHHOLZ, CIGARETTE VENDOR AIDA Primary Care Unavailable ARIA, NISH Consulting Unavailable ARIA, NISH Attending Unavailable ARIA, NISH Admitting Unavailable DEMARIO ., LU Attending Unavailable CURTISER, DR TIM Dunaway Consulting Unavailable AICHHOLZ, CIGARETTE VENDOR AIDA Primary Care Unavailable DEMARIO ., LU Admitting Unavailable DEMARIO ., LU Consulting Unavailable AICHHOLZ, CIGARETTE VENDOR AIDA Attending Unavailable AICHHOLZ, CIGARETTE VENDOR AIDA Admitting Unavailable AICHHOLZ, CIGARETTE VENDOR AIDA Primary Care Unavailable AICHHOLZ, CIGARETTE VENDOR AIDA Consulting Unavailable AICHHOLZ, CIGARETTE VENDOR AIDA Primary Care Unavailable ES ., DR OLMEDO Consulting Unavailable ES ., DR OLMEDO Attending Unavailable ES ., DR OLMEDO Admitting Unavailable AICHHOLZ, CIGARETTE VENDOR AIDA Primary Care Unavailable ES ., DR OLMEDO Admitting Unavailable ES ., DR OLMEDO Consulting Unavailable ES ., DR OLMEDO Attending Unavailable AICHHOLZ, CIGARETTE VENDOR AIDA Primary Care Unavailable ES ., DR OLMEDO Admitting Unavailable ES ., DR OLMEDO Consulting Unavailable ES ., DR OLMEDO Attending Unavailable AICHHOLZ, CIGARETTE VENDOR AIDA Consulting Unavailable AICHHOLZ, CIGARETTE VENDOR AIDA Attending Unavailable AICHHOLZ, CIGARETTE VENDOR AIDA Admitting Unavailable AICHHOLZ, CIGARETTE VENDOR AIDA Primary Care Unavailable CATYEBER, DR TIM Dunaway Consulting Unavailable AICHHOLZ, CIGARETTE VENDOR AIDA Consulting Unavailable AICHHOLZ, CIGARETTE VENDOR AIDA Attending Unavailable AICHHOLZ, CIGARETTE VENDOR AIDA Admitting Unavailable AICHHOLZ, CIGARETTE VENDOR AIDA Primary Care Unavailable AICHHOLZ, CIGARETTE VENDOR AIDA Attending Unavailable AICHHOLZ, CIGARETTE VENDOR AIDA Admitting Unavailable AICHHOLZ, CIGARETTE VENDOR AIDA Primary Care Unavailable AICHHOLZ, CIGARETTE VENDOR AIDA Consulting Unavailable AICHHOLZ, CIGARETTE VENDOR AIDA Attending Unavailable AICHHOLZ, CIGARETTE VENDOR AIDA Admitting Unavailable AICHHOLZ, CIGARETTE VENDOR AIDA Primary Care Unavailable AICHHOLZ, CIGARETTE VENDOR AIDA Consulting Unavailable AICHHOLZ, CIGARETTE VENDOR AIDA Primary Care Unavailable ES ., DR OLMEDO Admitting Unavailable ES ., DR OLMEDO Consulting Unavailable ES ., DR OLMEDO Attending Unavailable SANTINO CAZARES Consulting Unavailable DESHAUN BOWENS II Consulting Unavailable NICOLE ESCOTO Consulting Unavailable Jef Wooten MD Primary Care Provider AICHHOLZ, AIDA Attending Unavailable HONORIO SHANE Attending Unavailable AICHHOLZ, AIDA Attending Unavailable AICHHOLZ, AIDA Attending Unavailable AICHHOLZ, AIDA Attending Unavailable JONATAN SMITH Attending Unavailable AICHHOLZ, AIDA Attending Unavailable Allergies Allergy Classification Reported Allergen(s) Allergy Type Date of Onset Reaction(s) Facility (1 source) Bee pollen Drug allergy (disorder) [facility] Rep[facility] (1 source) Penicillins Drug allergy (disorder) 03-31-20 15 [facility] (1 source) Sulfamethoxazole / Trimethoprim Drug Allergy 03-31-20 15 [facility] (20 sources) Honey bee venom Allergy to substance 01-14-20 23 [facility] (20 sources) metroNIDAZOLE Drug Allergy 07-28-19 24 Other, GI intolerance [facility] (20 sources) Penicillin G Drug Allergy 01-14-20 23 [facility] (20 sources) Sulfonamides (Antibiotic) Drug Allergy 01-14-20 23 [facility] Medications Current Medications Medication Drug Class(es) Dates Sig (Normalized) Sig (Original) ALPRAZolam 0.25 mg oral tablet (20 sources) Benzodiazepine Start: 12-29-2023 End: 04-13-2024 take 1 tablet by mouth once daily as needed for anxiety ALPRAZolam (Xanax) 0.25 MG tablet Indications: Anxiety and depression (CMS/HCC) Take 1 tablet (0.25 mg) by mouth Daily as needed for anxiety (panic attacks) for up to 10 days 10 tablet 04/03/2024 Active bisacodyl 5 mg delayed release oral tablet (2 sources) Stimulant Laxative Start: 02-23-2024 End: 02-23-2024 take 1 tablet by mouth once bisacodyl (Dulcolax) 5 MG EC tablet Indications: Encounter for diagnostic colonoscopy due to change in bowel habits Take 1 tablet (5 mg) by mouth 1 time for 1 dose Do not crush, chew, or split. Take as detailed on clinic hand out for colonoscopy prep 4 tablet 02/23/2024 02/23/2024 Active dibucaine 0.01 mg/mg rectal ointment (15 sources) Standardized Chemical Allergen Start: 02-29-2024 dibucaine (Nupercainal) 1 % ointment Indications: Anal or rectal pain APPLY TO THE AFFECTED AREA(S) topically TWICE DAILY 56 g 2 02/29/2024 Active Start: 02-25-2024 dibucaine (Nup ercainal) 1 % ointment Indications: Anal or rectal pain Apply topically 2 (two) times a day 56.7 g 2 02/25/2024 Active hydrocortisone acetate 25 mg rectal suppository (2 sources) Corticosteroid Start: 02-09-2024 End: 02-21-2024 hydrocortisone (Anusol-HC) 25 MG suppository Indications: Hemorrhoids Insert 1 suppository (25 mg) into the rectum in the morning and 1 suppository (25 mg) before bedtime. Do all this for 7 days. 14 suppository 02/09/2024 02/21/2024 Active ondansetron 4 mg disintegrating oral tablet (1 source) Serotonin-3 Receptor Antagonist Start: 04-25-2024 End: 05-02-2024 take 1 tablet by mouth every eight hours as needed for vomiting and nausea and nausea and nausea ondansetron ODT (Zofran-ODT) 4 MG disintegrating tablet Indications: Nausea Take 1 tablet (4 mg) by mouth every 8 (eight) hours if needed for vomiting or nausea for up to 7 days 21 tablet 04/25/2024 05/02/2024 Active polyethylene glycol 3350 50910 mg powder for oral solution (2 sources) Osmotic Laxative Start: 02-23-2024 End: 02-23-2024 take 17 g by mouth once polyethylene glycol, PEG, 3350 (Glycolax) 17 GM/SCOOP powder Indications: Colonoscopy Take 238 g by mouth 1 (one) time for 1 dose Take as detailed from clinic hand out for colonoscopy prep 238 g 02/23/2024 02/23/2024 Active Semaglutide (OZEMPIC, 0.25 OR 0.5 MG/DOSE, SC) (4 sources) End: 03-13-2024 inject 0.5 mg by subcutaneous injection every week Semaglutide (OZEMPIC, 0.25 OR 0.5 MG/DOSE, SC) Inject 0.5 mg/mL under the skin 1 (one) time per week 03/13/2024 Discontinued (Reorder) inject 0.5 mg by sub cutaneous injection every week Semaglutide (OZEMPIC, 0.25 OR 0.5 MG/DOSE, SC) Inject 0.5 mg/mL under the skin 1 (one) time per week Active semaglutide (Ozempic, 1 MG/DOSE,) 4 MG/3ML solution pen-injector (18 sources) Start: 08-30-2024 End: 11-22-2024 semaglutide (Ozempic, 1 MG/DOSE,) 4 MG/3ML solution pen-injector Indications: Pre-diabetes Inject 1 mg under the skin every 7 (seven) days 9 mL 1 08/30/2024 11/22/2024 Active Start: 07-03-2024 End: 08-30-2024 semaglutide (Ozempic, 1 MG/D OSE,) 4 MG/3ML solution pen- injector Indications: Pre-diabetes Inject 1 mg under the skin every 7 (seven) days 9 mL 1 07/03/2024 08/30/2024 Discontinued (Reorder) Start: 07-03-2024 End: 09-25-2024 semaglutide (Ozempic, 1 MG/D OSE,) 4 MG/3ML solution pen- injector Indications: Pre-diabetes Inject 1 mg under the skin every 7 (seven) days 9 mL 1 07/03/2024 09/25/2024 Active Start: 06-26-2024 End: 07-03-2024 semaglutide (Ozempic, 1 MG/D OSE,) 4 MG/3ML solution pen- injector Indications: Pre-diabetes Inject 1 mg under the skin every 7 (seven) days 9 mL 1 06/26/2024 07/03/2024 Discontinued (Reorder) Start: 06-26-2024 End: 09-18-2024 semaglutide (Ozempic, 1 MG/D OSE,) 4 MG/3ML solution pen- injector Indications: Pre-diabetes Inject 1 mg under the skin every 7 (seven) days 9 mL 1 06/26/2024 09/18/2024 Active Start: 06-21-2024 End: 06-26-2024 semaglutide (Ozempic, 1 MG/D OSE,) 4 MG/3ML solution pen- injector Indications: Pre-diabetes Inject 1 mg under the skin every 7 (seven) days 9 mL 1 06/21/2024 06/26/2024 Discontinued (Reorder) Start: 06-21-2024 End: 09-13-2024 semaglutide (Ozempic, 1 MG/D OSE,) 4 MG/3ML solution pen- injector Indications: Pre-diabetes Inject 1 mg under the skin every 7 (seven) days 9 mL 1 06/21/2024 09/13/2024 Active Start: 04-03-2024 End: 06-21-2024 semaglutide (Ozempic, 1 MG/D OSE,) 4 MG/3ML solution pen- injector Indications: Pre-diabetes Inject 1 mg under the skin every 7 (seven) days for 28 days 3 mL 3 04/03/2024 06/21/2024 Discontinued (Reorder) Start: 04-03-2024 End: 05-01-2024 semaglutide (Ozempic, 1 MG/D OSE,) 4 MG/3ML solution pen- injector Indications: Pre-diabetes Inject 1 mg under the skin every 7 (seven) days for 28 days 3 mL 3 04/03/2024 05/01/2024 Active Semaglutide,0.25 or 0.5MG/DO S, (Ozempic, 0.25 or 0.5 MG/DOSE,) 2 MG/3ML solution pen-injector (2 sources) Start: 03-13-2024 End: 04-03-2024 Semaglutide,0.25 or 0.5MG/DO S, (Ozempic, 0.25 or 0.5 MG/DOSE,) 2 MG/3ML solution pen-injector Indications: Pre-diabetes , BMI 50.0-59.9, adult (CMS/HCC) , Metabolic syndrome Inject 0.5 mg under the skin 1 (one) time per week for 28 days 3 mL 2 03/13/2024 04/03/2024 Discontinued (Therapy completed) Start: 03-13-2024 End: 04-10-2024 Semaglutide,0.25 or 0.5MG/DO S, (Ozempic, 0.25 or 0.5 MG/DOSE,) 2 MG/3ML solution pen-injector Indications: Pre-diabetes , BMI 50.0-59.9, adult (CMS/HCC) , Metabolic syndrome Inject 0.5 mg under the skin 1 (one) time per week for 28 days 3 mL 2 03/13/2024 04/10/2024 Active ubrogepant 100 mg oral table t (20 sources) Start: 06-17-2023 Ubrogepant (Ub relvy) 100 MG tablet Indications: Chronic migraine without aura without status migrainosus, not intractable (CMS/HCC) 1 tablet at the onset of migraine AVALOS, may repeat in 2 hours if needed. No more than 2 pills in 24 hours, no more than 4 pills per week 15 tablet 2 06/17/2023 Active Completed/Discontinued Medications Medication Drug Class(es) Dates Sig (Normalized) Sig (Original) amLODIPine 10 mg oral tablet (20 sources) Dihydropyridine Calcium Channel Dayna Start: 4 End: 5 take 1 tablet by mouth once daily amLODIPine (Norvasc) 10 MG tablet Take 1 tablet (10 mg) by mouth Daily 90 tablet 1 08/30/2024 08/30/2024 Discontinued (Reorder) azithromycin 250 mg oral tablet (5 sources) Macrolide Antimicrobial Start: 5 End: 5 azithromycin (Zithromax) 250 MG tablet Indications: Dental infection 2 pills day#1, 1 pill day #2-#5 6 tablet 07/20/2024 08/30/2024 Discontinued (Therapy completed) 24 hr buPROPion hydrochloride 150 mg extended release oral tablet (20 sources) Aminoketone Start: 4 End: 5 take 1 tablet by mouth once daily buPROPion XL (Wellbutrin XL) 150 MG 24 hr tablet Take 1 tablet (150 mg) by mouth Daily 90 tablet 1 08/30/2024 08/30/2024 Discontinued (Reorder) busPIRone hydrochloride 15 mg oral tablet (20 sources) Start: 4 End: 5 take 1 tablet by mouth in the morning busPIRone (Buspar) 15 MG tablet Take 1 tablet (15 mg) by mouth in the morning and 1 tablet (15 mg) before bedtime. 180 tablet 1 08/30/2024 08/30/2024 Discontinued (Reorder) cariprazine 1.5 mg oral capsule (20 sources) Atypical Antipsychotic Start: 4 End: 5 take 1 capsule by mouth once daily Cariprazine HCl (Vraylar) 1.5 MG capsule Indications: Anxiety and depression (CMS/HCC) Take 1 capsule by mouth Daily 90 capsule 1 08/30/2024 08/30/2024 Discontinued (Reorder) carvedilol 3.125 mg oral tablet (20 sources) alpha-Adrenergic Dayna, beta-Adrenergic Dayna Start: 4 End: 5 take 1 tablet by mouth in the morning carvedilol (Coreg) 3.125 MG tablet Take 1 tablet (3.125 mg) by mouth in the morning and 1 tablet (3.125 mg) before bedtime. 180 tablet 1 08/30/2024 08/30/2024 Discontinued (Reorder) escitalopram 20 mg oral tablet (20 sources) Serotonin Reuptake Inhibitor Start: 4 End: 5 take 1 tablet by mouth in the morning escitalopram (Lexapro) 20 MG tablet Indications: Anxiety and depression (CMS/HCC) Take 1 tablet (20 mg) by mouth in the morning. 90 tablet 1 08/30/2024 08/30/2024 Discontinued (Reorder) furosemide 20 mg oral tablet (20 sources) Loop Diuretic Start: 4 End: 5 take 1 tablet by mouth once daily furosemide (Lasix) 20 MG tablet Indications: Edema, lower extremity Take 1 tablet (20 mg) by mouth Daily 90 tablet 1 08/30/2024 08/30/2024 Discontinued (Reorder) hydroCHLOROthiazide 12.5 mg / lisinopril 20 mg oral tablet (20 sources) Thiazide Diuretic, Angiotensin Converting Enzyme Inhibitor Start: 4 End: 5 take 1 tablet by mouth in the morning lisinopril-hydro CHLOROthiazide 20-12.5 MG tablet Take 1 tablet by mouth in the morning and 1 tablet before bedtime. 180 tablet 1 08/30/2024 08/30/2024 Discontinued (Reorder) montelukast 10 mg oral tablet (11 sources) Leukotriene Receptor Antagonist Start: 4 End: take 1 tablet by mouth at bedtime montelukast (Singulair) 10 MG tablet Indications: Allergic rhinitis, unspecified , Allergic rhinitis Take 1 tablet (10 mg) by mouth at bedtime 90 tablet 1 12/29/2023 04/03/2024 Discontinued (Therapy completed) pantoprazole 40 mg delayed release oral tablet (20 sources) Proton Pump Inhibitor Start: End: 5 take 1 tablet by mouth in the morning pantoprazole (ProtoNix) 40 MG EC tablet Take 1 tablet (40 mg) by mouth in the morning and 1 tablet (40 mg) before bedtime. 180 tablet 08/30/2024 08/30/2024 Discontinued (Reorder) Start: 12-29-2023 End: 07-02-2024 take 1 tablet by mouth in the morning pantoprazole (ProtoNix) 40 MG EC tablet Indications: Gastro-esophageal reflux disease without esophagitis Take 1 tablet (40 mg) by mouth in the morning and 1 tablet (40 mg) before bedtime. 180 tablet 1 04/03/2024 Active traZODone hydrochloride 150 mg oral tablet (20 sources) Serotonin Reuptake Inhibitor Start: 12-29-2023 End: 11-28-2024 take 2 tablets by mouth at bedtime traZODone (Desyrel) 150 MG tablet Take 2 tablets (300 mg) by mouth at bedtime 180 tablet 1 08/30/2024 08/30/2024 Discontinued (Reorder) Problems Active Problems Problem Classification Problem Date Documented Date Episodic/Chronic Abdominal pain (5 sources) Pelvic and perineal pain; Translations: [Unspecified abdominal pain] Onset: 04-30-2022 Episodic Anxiety disorders (20 sources) Mixed anxiety and depressive disorder; Translations: [Anxiety disorder, unspecified] Onset: 06-29-2023 06-29-2023 Chronic Diabetes mellitus without complication (20 sources) Prediabetes; Translations: [Prediabetes] Onset: 10-21-2023 Resolved: 02-21-2024 11-04-2023 Episodic Disorders of lipid metabolism (20 sources) Hyperlipidemia; Translations: [Hyperlipidemia, unspecified] Onset: 08-02-2023 08-02-2023 Chronic Disorders of teeth and jaw (7 sources) Infection of tooth; Translations: [Periapical abscess without sinus] Onset: 07-20-2024 07-20-2024 Episodic Esophageal disorders (20 sources) Gastroesophageal reflux disease; Translations: [Gastro-esophageal reflux disease without esophagitis] Onset: 08-23-2023 08-23-2023 Chronic Essential hypertension (20 sources) Essential (primary) hypertension; Translations: [Hypertensive disorder] Onset: 11-27-2022 Chronic Headache; including migraine (20 sources) Migraine without aura, not refractory ; Translations: [Chronic migraine without aura, not intractable, without status migrainosus] Onset: 06-17-2023 06-17-2023 Chronic Heart valve disorders (20 sources) Rheumatic tricuspid insufficiency; Translations: [Tricuspid valve regurgitation] Onset: 12-01-2022 08-23-2023 Chronic Inflammatory diseases of female pelvic organs (1 source) Inflammatory disease of cervix uteri; Translations: [INFLAMMATORY DISEASE CERVIX UTERI] Onset: 09-23-2022 Episodic Menstrual disorders (6 sources) Excessive and frequent menstruation with regular cycle; Translations: [Dysmenorrhea, unspecified] Onset: 09-11-2022 Chronic Miscellaneous mental health disorders (2 sources) Primary insomnia; Translations: [Primary insomnia] 08-30-2024 Chronic Nonspecific chest pain (1 source) Chest pain, unspecified; Translations: [CHEST PAIN UNSPECIFIED] Onset: 12-01-2022 Episodic Other acquired deformities (20 sources) Equinus contracture of the ankle; Translations: [Contracture, left ankle] Onset: 01-13-2023 01-13-2023 Chronic Other female genital disorders (1 source) Unspecified [...] BMI 40.0-44.9 ADULT] Onset: 01-14-2022 Chronic Other nutritional; endocrine; and metabolic disorders (20 sources) Body mass index 40+ - severely obese; Translations: [Body mass index (BMI) 50.0-59.9, adult] Onset: 08-02-2023 08-02-2023 Chronic Other nutritional; endocrine; and metabolic disorders (17 sources) Metabolic syndrome X; Translations: [Metabolic syndrome] Onset: 03-13-2024 03-13-2024 Chronic Other nutritional; endocrine; and metabolic disorders (5 sources) Obesity caused by energy imbalance; Translations: [Morbid (severe) obesity due to excess calories] Onset: 08-30-2024 08-30-2024 Chronic Other skin disorders (1 source) Changes in skin texture; Translations: [CHANGES IN SKIN TEXTURE] Onset: 09-23-2022 Episodic Prolapse of female genital organs (1 source) Female genital prolapse, unspecified; Translations: [FEMALE GENITAL PROLAPSE UNSPECIFIED] Onset: 09-12-2022 Chronic Pulmonary heart disease (20 sources) Pulmonary arterial hypertension; Translations: [Secondary pulmonary arterial hypertension] Onset: 08-23-2023 08-23-2023 Chronic Residual codes; unclassified (4 sources) Obstructive sleep apnea (adult) (pediatric); Translations: [OBSTRUCTIVE SLEEP APNEA] Onset: 11-17-2022 Chronic Residual codes; unclassified (20 sources) Obstructive sleep apnea syndrome; Translations: [Obstructive sleep apnea (adult) (pediatric)] Onset: 08-23-2023 08-23-2023 Chronic Residual codes; unclassified (1 source) Localized edema; Translations: [LOCALIZED EDEMA] Onset: 12-01-2022 Episodic Residual codes; unclassified (20 sources) Edema of lower extremity; Translations: [Localized edema] Onset: 07-02-2023 02-21-2024 Episodic Past or Other Problems Problem Classification Problem Date Documented Da te Episodic/Chronic Administrative/social admission (4 sources) Encounter for pre-employment examination; Translations: [ENCOUNTER FOR PRE-EMPLOYMENT EXAM] Onset: 07-08-2022 Episodic Anal and rectal conditions (20 sources) Anorectal pain; Translations: [Other specified diseases of anus and rectum] Onset: 02-21-2024 Resolved: 02-21-2024 02-21-2024 Episodic Bacterial infection; unspecified site (1 source) Personal history of Methicillin resistant Staphylococcus aureus infection; Translations: [PERS HX METHICILLIN RSIST STAPH INF] Onset: 05-04-2022 Episodic Hemorrhoids (20 sources) Hemorrhoids; Translations: [Other hemorrhoids] Onset: 02-09-2024 02-09-2024 Episodic Immunizations and screening for infectious disease (1 source) Encounter for screening for human papillomavirus (HPV); Translations: [ENC SCREENING HUMAN PAPILLOMAVIRUS] Onset: 05-23-2022 Episodic Nausea and vomiting (11 sources) Nausea; Translations: [Nausea] Onset: 04-25-2024 04-25-2024 Episodic Other aftercare (1 source) Other group home (current) drug therapy; Translations: [OTH EMT/PARAMEDIC CURRENT DRUG THERAPY] Onset: 05-04-2022 Episodic Other female genital disorders (5 sources) Other specified noninflammatory disorders of cervix uteri; Translations: [OTH SPEC NONINFLAMM D/O CERV UTERI] Onset: 05-13-2022 Episodic Other gastrointestinal disorders (1 source) Diarrhea, unspecified; Translations: [DIARRHEA UNSPECIFIED] Onset: 05-04-2022 Episodic Other gastrointestinal disorders (20 sources) Constipation; Translations: [Constipation, unspecified] Onset: 01-13-2023 01-13-2023 Episodic Other gastrointestinal disorders (20 sources) Diarrhea; Translations: [Diarrhea, unspecified] Onset: 10-13-2023 10-13-2023 Episodic Other gastrointestinal disorders (2 sources) Patient encounter status; Translations: [Change in bowel habit] 02-23-2024 Episodic Other nutritional; endocrine; and metabolic disorders (20 sources) Abnormal weight gain; Translations: [Abnormal weight gain] Onset: 08-02-2023 08-02-2023 Episodic Other screening for suspected conditions (not mental disorders or infectious disease) (20 sources) Encounter for screening for malignant neoplasm of cervix; Translations: [Patient encounter status] Onset: 05-21-2022 Episodic Other upper respiratory infections (20 sources) Acute upper respiratory infection; Translations: [Acute upper respiratory infection, unspecified] Onset: 10-13-2023 Resolved: 02-21-2024 02-21-2024 Episodic Residual codes; unclassified (1 source) Family history of other endocrine, nutritional and metabolic diseases; Translations: [FAM HX OTH ENDOCRN NUTRIT METAB DZ] Onset: 01-14-2022 Episodic Residual codes; unclassified (20 sources) Insomnia; Translations: [Insomnia, unspecified] Onset: 08-23-2023 08-23-2023 Episodic Residual codes; unclassified (20 sources) FH: premature coronary heart disease; Translations: [Family history of ischemic heart disease and other diseases of the circulatory system] Onset: 11-04-2023 11-04-2023 Episodic Results Test Name Value Interpretation Reference Range Facility HbA1c (Bld) [Mass fraction]o n 08-30-2024 Interpretation and review of laboratory results [facility] Laboratory - Hematology and Cell countson 08-30-2024 HbA1c (Bld) [Mass fraction] 5.20 % [facility] CBC AUTO DIFFon 11-27-2022 BASO # 0.1 103/ul Normal 0.0-0.1 [facility] Comment on above: Performed By: #### D DIM #### [facility] [address] [place] [address] Dr. Tyra Poon Basophils/100 WBC (Bld) 0.9 % Normal 0.2-2.0 [facility] Comment on above: Performed By: #### D DIM #### [facility] [address] [place] [address] Dr. Tyra Poon EO # 0.3 103/ul Normal 0.0-0.7 [facility] Comment on above: Performed By: #### D DIM #### [facility] [address] [place] [address] Dr. Tyra Poon Eosinophils/100 WBC (Bld) 3.9 % Normal 0.9-7.0 [facility] Comment on above: Performed By: #### D DIM #### [facility] [address] [place] [address] Dr. Tyra Poon Erythrocyte distribution width (RBC) [Ratio] 14.1 % Normal 11.0-15.0 [facility] Comment on above: Performed By: #### D DIM #### [facility] [address] [place] [address] Dr. Tyra Poon Hematocrit (Bld) [Volume fraction] 33.5 % Critically low 36.0-48.0 [facility] Comment on above: Performed By: #### D DIM #### [facility] [address] [place] [address] Dr. Tyra Poon Hemoglobin (Bld) [Mass/Vol] 10.3 g/dL Critically low 12.0-16.0 [facility] Comment on above: Performed By: #### D DIM #### [facility] [address] [place] [address] Dr. Tyra Poon IG # 0.03 10e3/ul Normal 0.00-0.03 [facility] Comment on above: Performed By: #### D DIM #### [facility] [address] [place] [address] Dr. Tyra Poon IG % 0.4 % Normal 0.0-0.5 [facility] Comment on above: Performed By: #### D DIM #### [facility] [address] [place] [address] Dr. Tyra Poon LYMPH # 2.3 103/ul Normal 1.2-3.8 [facility] Comment on above: Performed By: #### D DIM #### [facility] [address] [place] [address] Dr. Tyra Poon Lymphocytes/100 WBC (Bld) 34.3 % Normal 20.5-60.0 [facility] Comment on above: Performed By: #### D DIM #### [facility] [address] [place] [address] Dr. Tyra Poon MANUAL DIFF REQ NO Normal [facility] Comment on above: Performed By: #### D DIM #### [facility] [address] [address] [address] Tyra Poon MCH (RBC) [Entitic mass] 25.9 pg Critically low 26.7-34.0 [facility] Comment on above: Performed By: #### D DIM #### [facility] [address] [place] [address] Dr. Tyra Poon MCHC (RBC) [Mass/Vol] 30.7 g/dL Normal 29.9-35.2 [facility] Comment on above: Performed By: #### D DIM #### [facility] [address] [place] [address] Dr. Tyra Poon MCV (RBC) [Entitic vol] 84.4 fL Normal 81.0-99.0 [facility] [facility] Comment on above: Performed By: #### D DIM #### [facility] [address] [place] [address] Dr. Tyra Poon MONO # 0.5 103/ul Normal 0.3-0.8 [facility] Comment on above: Performed By: #### D DIM #### [facility] [address] [place] [address] Dr. Tyra Poon Monocytes/100 WBC (Bld) 7.2 % Normal 1.7-12.0 [facility] Comment on above: Performed By: #### D DIM #### [facility] [address] [place] [address] Dr. Tyra Poon NEUT # 3.6 103/ul Normal 1.4-6.5 [facility] Comment on above: Performed By: #### D DIM #### [facility] [address] [place] [address] Dr. Tyra Poon Neutrophils/100 WBC (Bld) 53.3 % Normal 43.0-75.0 [facility] Comment on above: Performed By: #### D DIM #### [facility] [address] [place] [address] Dr. Tyra Poon Platelet mean volume (Bld) [Entitic vol] 9.1 fL Critically low 9.5-13.5 [facility] Comment on above: Performed By: #### D DIM #### [facility] [address] [address] [address] Tyra Poon PLT 325 103/ul Normal 150-450 [facility] Comment on above: Performed By: #### D DIM #### [facility] [id number] Tyra Poon RBC 3.97 106/ul Critically low 4.20-5.40 [facility] Comment on above: Performed By: #### D DIM #### [facility] [address] [address] [address] Tyra Poon WBC 6.7 103/ul Normal 4.0-11.0 [facility] Comment on above: Performed By: #### D DIM #### [facility] [address] [address] [address] Tyra Poon D-DIMERon 11-27-2022 D-DIMER 0.36 mg/L FEU Normal <=0.59 [facility] Comment on above: Performed By: #### D DIM #### [facility] [address] [address] [address] Tyra Poon D-DIMER COMMENTS SEE BELOW Normal [facility] Comment on above: Result Comment: Incr eases [...] hospitalization. Performed By: #### D DIM #### [facility] [address] [address] [address] Tyra Poon ECHOCARDIO M/2D COMPLETEon 0 11-27-2022 ECHOCARDIO M/2D COMPLETE Patient: CHAPARRITA ROCA Exam Date: 11/27/2022 : 1980 Gender:F Ordering : [facility] Admission #: [id number] Family : Order #: [id number] CLICK HERE TO VIEW EXAM ECHOCARDIOGRAM REPORT [...] Hemant White M.D. on 11/29/2022 at 15:[address] 11-27-2022 Free T4 [Mass/Vol] 1.00 ng/dL Normal 0.76-1.46 [facility] Comment on above: Performed By: #### D DIM #### [facility] [address] [place] [address] Dr. Tyra Poon PROF 14(COMP METB)on 023 Albumin [Mass/Vol] 3.1 g/dL Critically low 3.4-5.0 [facility] Comment on above: Performed By: #### T SH, CMP #### [facility] [address] [place] [address] Dr. Tyra Poon Albumin/Globulin [Mass ratio] 0.8 {ratio} Normal [facility] Comment on above: Performed By: #### T SH, CMP #### [facility] [address] [place] [address] Dr. Tyra Poon ALP [Catalytic activity/Vol] 73 U/L Normal 46-116 [facility] Comment on above: Performed By: #### T SH, CMP #### [facility] [address] [place] [address] Dr. Tyra Poon ALT [Catalytic activity/Vol] 17 U/L Normal 14-59 [facility] Comment on above: Performed By: #### T KRISTINE, CMP #### [facility] [address] [place] [address] Dr. Tyra Poon Anion gap [Moles/Vol] 8.5 mmol/L Normal [facility] Comment on above: Performed By: #### T SH, CMP #### [facility] [address] [place] [address] Dr. Tyra Poon AST [Catalytic activity/Vol] 12 U/L Critically low 15-37 [facility] Comment on above: Performed By: #### T SH, CMP #### [facility] [address] [place] [address] Dr. Tyra Poon Bilirubin [Mass/Vol] 0.2 mg/dL Normal 0.2-1.0 [facility] Comment on above: Performed By: #### T SH, CMP #### [facility] [address] [address] [address] Tyra Poon Calcium [Mass/Vol] 8.5 mg/dL Normal 8.5-10.1 [facility] Comment on above: Performed By: #### T SH, CMP #### [facility] [address] [address] [address] Tyra Poon Chloride [Moles/Vol] 101 mmol/L Normal 98-107 [facility] Comment on above: Performed By: #### T SH, CMP #### [facility] [address] [place] [address] Dr. Tyra Poon CO2 [Moles/Vol] 32.3 mmol/L Critically high 21.0-32.0 [facility] Comment on above: Performed By: #### T SH, CMP #### [facility] [address] [place] [address] Dr. Tyra Poon Creatinine [Mass/Vol] 0.95 mg/dL Normal 0.55-1.02 [facility] Comment on above: Performed By: #### T SH, CMP #### [facility] [address] [place] [address] Dr. Tyra Poon EGFR-AF SWISS >60 Normal >=60 [facility] Comment on above: Performed By: #### T SH, CMP #### [facility] [address] [place] [address] Dr. Tyra Poon EGFR-NON AF SWISS >60 Normal >=60 [facility] Comment on above: Performed By: #### T SH, CMP #### [facility] [address] [place] [address] Dr. Tyra Poon Globulin (S) [Mass/Vol] 4.1 g/dL Normal [facility] Comment on above: Performed By: #### T SH, CMP #### [facility] [address] [place] [address] Dr. Tyra Poon Glucose [Mass/Vol] 105 mg/dL Normal 74-106 [facility] Comment on above: Performed By: #### T SH, CMP #### [facility] [address] [place] [address] Dr. Tyra Poon Potassium [Moles/Vol] 3.8 mmol/L Normal 3.5-5.1 [facility] Comment on above: Performed By: #### T SH, CMP #### [facility] [address] [place] [address] Dr. Tyra Poon Protein [Mass/Vol] 7.2 g/dL Normal 6.4-8.2 [facility] Comment on above: Performed By: #### T SH, CMP #### [facility] [address] [place] [address] Dr. Tyra Poon Sodium [Moles/Vol] 138 mmol/L Normal 136-145 [facility] Comment on above: Performed By: #### T SH, CMP #### [facility] [address] [place] [address] Dr. Tyra Poon Urea nitrogen [Mass/Vol] 14.0 mg/dL Normal 7.0-18.0 [facility] Comment on above: Performed By: #### T SH, CMP #### [facility] [address] [place] [address] Dr. Tyra Poon Urea nitrogen/Creatinine [Mass ratio] 14.7 mg/mg Normal [facility] Comment on above: Performed By: #### T KRISTINE, CMP #### [facility] [address] [place] [address] Dr. Tyra Poon TSHon 11-27-2022 TSH 1.423 uIU/mL Normal 0.358-3.740 [facility] Comment on above: Performed By: #### T SH, CMP #### [facility] [address] [place] [address] Dr. Tyra Poon BUNon 09-12-2022 Urea nitrogen [Mass/Vol] 10.0 mg/dL Normal 7.0-18.0 [facility] Comment on above: Performed By: #### D DIM #### [facility] [address] [place] [address] Dr. Tyra Poon CBC AUTO DIFFon 09-12-2022 BASO # 0.0 103/ul Normal 0.0-0.1 [facility] Comment on above: Performed By: #### P REGQNT #### [facility] [address] [address] [address] Tyra Poon Basophils/100 WBC (Bld) 0.1 % Critically low 0.2-2.0 [facility] Comment on above: Performed By: #### P REGQNT #### [facility] [address] [place] [address] Dr. Tyra Poon EO # 0.0 103/ul Normal 0.0-0.7 [facility] Comment on above: Performed By: #### P REGQNT #### [facility] [address] [place] [address] Dr. Tyra Poon Eosinophils/100 WBC (Bld) 0.1 % Critically low 0.9-7.0 [facility] Comment on above: Performed By: #### P REGQNT #### [facility] [address] [place] [address] Dr. Tyra Poon Erythrocyte distribution width (RBC) [Ratio] 14.9 % Normal 11.0-15.0 [facility] Comment on above: Performed By: #### P REGQNT #### [facility] [address] [place] [address] Dr. Tyra Poon Hematocrit (Bld) [Volume fraction] 30.8 % Critically low 36.0-48.0 [facility] Comment on above: Performed By: #### P REGQNT #### [facility] [address] [place] [address] Dr. Tyra Poon Hemoglobin (Bld) [Mass/Vol] 10.1 g/dL Critically low 12.0-16.0 [facility] Comment on above: Performed By: #### P REGQNT #### [facility] [address] [place] [address] Dr. Tyra Poon IG # 0.14 10e3/ul Critically high 0.00-0.03 [facility] Comment on above: Performed By: #### P REGQNT #### [facility] [address] [place] [address] Dr. Tyra Poon IG % 0.9 % Critically high 0.0-0.5 [facility] Comment on above: Performed By: #### P REGQNT #### [facility] [address] [place] [address] Dr. Tyra Poon LYMPH # 2.2 103/ul Normal 1.2-3.8 [facility] Comment on above: Performed By: #### P REGQNT #### [facility] [address] [place] [address] Dr. Tyra Poon Lymphocytes/100 WBC (Bld) 14.6 % Critically low 20.5-60.0 [facility] Comment on above: Performed By: #### P REGQNT #### [facility] [address] [place] [address] Dr. Tyra Poon MANUAL DIFF REQ NO Normal [facility] Comment on above: Performed By: #### P REGQNT #### [facility] [address] [place] [address] Dr. Tyra Poon MCH (RBC) [Entitic mass] 27.3 pg Normal 26.7-34.0 [facility] Comment on above: Performed By: #### P REGQNT #### [facility] [address] [place] [address] Dr. Tyra Poon MCHC (RBC) [Mass/Vol] 32.8 g/dL Normal 29.9-35.2 [facility] Comment on above: Performed By: #### P REGQNT #### [facility] [address] [place] [address] Dr. Tyra Poon MCV (RBC) [Entitic vol] 83.2 fL Normal 81.0-99.0 [facility] Comment on above: Performed By: #### P REGQNT #### [facility] [address] [place] [address] Dr. Tyra Poon MONO # 1.0 103/ul Critically high 0.3-0.8 [facility] Comment on above: Performed By: #### P REGQNT #### [facility] [address] [place] [address] Dr. Tyra Poon Monocytes/100 WBC (Bld) 6.6 % Normal 1.7-12.0 [facility] Comment on above: Performed By: #### P REGQNT #### [facility] [address] [place] [address] Dr. Tyra Poon NEUT # 11.8 103/ul Critically high 1.4-6.5 [facility] Comment on above: Performed By: #### P REGQNT #### [facility] [address] [place] [address] Dr. Tyra Poon Neutrophils/100 WBC (Bld) 77.7 % Critically high 43.0-75.0 [facility] Comment on above: Performed By: #### P REGQNT #### [facility] [address] [place] [address] Dr. Tyra Poon Platelet mean volume (Bld) [Entitic vol] 9.3 fL Critically low 9.5-13.5 [facility] Comment on above: Performed By: #### P REGQNT #### [facility] [address] [place] [address] Dr. Tyra Poon PLT 282 103/ul Normal 150-450 [facility] Comment on above: Performed By: #### P REGQNT #### [facility] [address] [place] [address] Dr. Tyra Poon RBC 3.70 106/ul Critically low 4.20-5.40 [facility] Comment on above: Performed By: #### P REGQNT #### [facility] [address] [place] [address] Dr. Tyra Poon WBC 15.2 103/ul Critically high 4.0-11.0 [facility] Comment on above: Performed By: #### P REGQNT #### [facility] [address] [place] [address] Dr. Tyra Poon BASO # 0.0 103/ul Normal 0.0-0.1 [facility] Comment on above: Performed By: #### C BC #### [facility] [address] [place] [address] Dr. Tyra Poon Basophils/100 WBC (Bld) 0.2 % Normal 0.2-2.0 [facility] Comment on above: Performed By: #### C BC #### [facility] [address] [place] [address] Dr. Tyra Poon EO # 0.0 103/ul Normal 0.0-0.7 [facility] Comment on above: Performed By: #### C BC #### [facility] [address] [place] [address] Dr. Tyra Poon Eosinophils/100 WBC (Bld) 0.0 % Critically low 0.9-7.0 [facility] Comment on above: Performed By: #### C BC #### [facility] [address] [place] [address] Dr. Tyra Poon Erythrocyte distribution width (RBC) [Ratio] 14.6 % Normal 11.0-15.0 [facility] Comment on above: Performed By: #### C BC #### [facility] [address] [place] [address] Dr. Tyra Poon Hematocrit (Bld) [Volume fraction] 34.6 % Critically low 36.0-48.0 [facility] Comment on above: Performed By: #### C BC #### [facility] [address] [place] [address] Dr. Tyra Poon Hemoglobin (Bld) [Mass/Vol] 11.0 g/dL Critically low 12.0-16.0 [facility] Comment on above: Performed By: #### C BC #### [facility] [address] [place] [address] Dr. Tyra Poon IG # 0.28 10e3/ul Critically high 0.00-0.03 [facility] Comment on above: Performed By: #### C BC #### [facility] [address] [place] [address] Dr. Tyra Poon IG % 1.3 % Critically high 0.0-0.5 [facility] Comment on above: Performed By: #### C BC #### [facility] [address] [place] [address] Dr. Tyra Poon LYMPH # 1.9 103/ul Normal 1.2-3.8 [facility] Comment on above: Performed By: #### C BC #### [facility] [address] [place] [address] Dr. Tyra Poon Lymphocytes/100 WBC (Bld) 9.2 % Critically low 20.5-60.0 [facility] Comment on above: Performed By: #### C BC #### [facility] [address] [place] [address] Dr. Tyra Poon MANUAL DIFF REQ NO Normal [facility] Comment on above: Performed By: #### C BC #### [facility] [address] [place] [address] Dr. Tyra Poon MCH (RBC) [Entitic mass] 27.0 pg Normal 26.7-34.0 [facility] Comment on above: Performed By: #### C BC #### [facility] [address] [place] [address] Dr. Tyra Poon MCHC (RBC) [Mass/Vol] 31.8 g/dL Normal 29.9-35.2 [facility] Comment on above: Performed By: #### C BC #### [facility] [address] [place] [address] Dr. Tyra Poon MCV (RBC) [Entitic vol] 84.8 fL Normal 81.0-99.0 [facility] Comment on above: Performed By: #### C BC #### [facility] [address] [place] [address] Dr. Tyra Poon MONO # 1.2 103/ul Critically high 0.3-0.8 [facility] Comment on above: Performed By: #### C BC #### [facility] [address] [place] [address] Dr. Tyra Poon Monocytes/100 WBC (Bld) 5.8 % Normal 1.7-12.0 [facility] Comment on above: Performed By: #### C BC #### [facility] [address] [place] [address] Dr. Tyra Poon NEUT # 17.7 103/ul Critically high 1.4-6.5 [facility] Comment on above: Performed By: #### C BC #### [facility] [address] [address] [address] Tyra Poon Neutrophils/100 WBC (Bld) 83.5 % Critically high 43.0-75.0 [facility] Comment on above: Performed By: #### C BC #### [facility] [address] [address] [address] Tyra Poon Platelet mean volume (Bld) [Entitic vol] 9.6 fL Normal 9.5-13.5 [facility] Comment on above: Performed By: #### C BC #### [facility] [address] [place] [address] Dr. Tyra Poon PLT 367 103/ul Normal 150-450 [facility] Comment on above: Performed By: #### C BC #### [facility] [address] [place] [address] Dr. Tyra Poon RBC 4.08 106/ul Critically low 4.20-5.40 [facility] Comment on above: Performed By: #### C BC #### [facility] [address] [place] [address] Dr. Tyra Poon WBC 21.2 103/ul Critically high 4.0-11.0 [facility] Comment on above: Performed By: #### C BC #### [facility] [address] [place] [address] Dr. Tyra Poon CREATININEon 09-12-2022 Creatinine [Mass/Vol] 1.08 mg/dL Critically high 0.55-1.02 [facility] Comment on above: Performed By: #### D DIM #### [facility] [address] [place] [address] Dr. Tyra Poon EGFR-AF SWISS >60 Normal >=60 [facility] Comment on above: Performed By: #### D DIM #### [facility] [address] [place] [address] Dr. Tyra Poon EGFR-NON AF SWISS 55 mL/min/1.73m2 Critically low >=60 [facility] Comment on above: Performed By: #### D DIM #### [facility] [address] [place] [address] Dr. Tyra Poon CBC AUTO DIFFon 09-09-2022 BASO # 0.1 103/ul Normal 0.0-0.1 [facility] Comment on above: Performed By: #### U AMIC #### [facility] [address] [place] [address] Dr. Tyra Poon Basophils/100 WBC (Bld) 0.7 % Normal 0.2-2.0 [facility] Comment on above: Performed By: #### U AMIC #### [facility] [address] [place] [address] Dr. Tyra Poon EO # 0.2 103/ul Normal 0.0-0.7 [facility] Comment on above: Performed By: #### U AMIC #### [facility] [address] [place] [address] Dr. Tyra Poon Eosinophils/100 WBC (Bld) 2.4 % Normal 0.9-7.0 [facility] Comment on above: Performed By: #### U AMIC #### [facility] [address] [place] [address] Dr. Tyra Poon Erythrocyte distribution width (RBC) [Ratio] 14.3 % Normal 11.0-15.0 [facility] Comment on above: Performed By: #### U AMIC #### [facility] [address] [place] [address] Dr. Tyra Poon Hematocrit (Bld) [Volume fraction] 33.3 % Critically low 36.0-48.0 [facility] Comment on above: Performed By: #### U AMIC #### [facility] [address] [place] [address] Dr. Tyra Poon Hemoglobin (Bld) [Mass/Vol] 10.8 g/dL Critically low 12.0-16.0 [facility] Comment on above: Performed By: #### U AMIC #### [facility] [address] [place] [address] Dr. Tyra Poon IG # 0.05 10e3/ul Critically high 0.00-0.03 [facility] Comment on above: Performed By: #### U AMIC #### [facility] [address] [address] [address] Tyra Poon IG % 0.6 % Critically high 0.0-0.5 [facility] Comment on above: Performed By: #### U AMIC #### [facility] [address] [address] [address] Tyra Poon LYMPH # 3.0 103/ul Normal 1.2-3.8 [facility] Comment on above: Performed By: #### U AMIC #### [facility] [address] [place] [address] Dr. Tyra Poon Lymphocytes/100 WBC (Bld) 33.4 % Normal 20.5-60.0 [facility] Comment on above: Performed By: #### U AMIC #### [facility] [address] [place] [address] Dr. Tyra Poon MANUAL DIFF REQ NO Normal [facility] Comment on above: Performed By: #### U AMIC #### [facility] [address] [place] [address] Dr. Tyra Poon MCH (RBC) [Entitic mass] 27.0 pg Normal 26.7-34.0 [facility] Comment on above: Performed By: #### U AMIC #### [facility] [address] [place] [address] Dr. Tyra Poon MCHC (RBC) [Mass/Vol] 32.4 g/dL Normal 29.9-35.2 [facility] Comment on above: Performed By: #### U AMIC #### [facility] [address] [place] [address] Dr. Tyra Poon MCV (RBC) [Entitic vol] 83.3 fL Normal 81.0-99.0 [facility] Comment on above: Performed By: #### U AMIC #### [facility] [address] [place] [address] Dr. Tyra Poon MONO # 0.6 103/ul Normal 0.3-0.8 [facility] Comment on above: Performed By: #### U AMIC #### [facility] [address] [address] [address] Tyra Poon Monocytes/100 WBC (Bld) 6.3 % Normal 1.7-12.0 [facility] Comment on above: Performed By: #### U AMIC #### [facility] [address] [address] [address] Tyra Poon NEUT # 5.0 103/ul Normal 1.4-6.5 [facility] Comment on above: Performed By: #### U AMIC #### [facility] [address] [place] [address] Dr. Tyra Poon Neutrophils/100 WBC (Bld) 56.6 % Normal 43.0-75.0 [facility] Comment on above: Performed By: #### U AMIC #### [facility] [address] [place] [address] Dr. Tyra Poon Platelet mean volume (Bld) [Entitic vol] 9.3 fL Critically low 9.5-13.5 [facility] Comment on above: Performed By: #### U AMIC #### [facility] [address] [place] [address] Dr. Tyra Poon PLT 310 103/ul Normal 150-450 [facility] Comment on above: Performed By: #### U AMIC #### [facility] [address] [address] [address] Tyra Poon RBC 4.00 106/ul Critically low 4.20-5.40 [facility] Comment on above: Performed By: #### U AMIC #### [facility] [address] [place] [address] Dr. Tyra Poon WBC 8.9 103/ul Normal 4.0-11.0 [facility] Comment on above: Performed By: #### U AMIC #### [facility] [address] [place] [address] Dr. Tyra Poon PREG QUANT HCGon 09-09-2022 HCG QUANT <1 Normal [facility] Comment on above: Performed By: #### P REGQNT #### [facility] [address] [place] [address] Dr. Tyra Poon HCG RANGE SEE BELOW Normal [facility] Comment on above: Result Comment: 5-50 0.2-1 WEEK 50-500 1-2 WEEKS 100-5,000 2-3 WEEKS 500-10,000 3-4 WEEKS 1,000-50,000 4-5 WEEKS 10,000-100,000 5-6 WEEKS 15,000-200,000 6-8 WEEKS 10,000-100,000 2-3 MONTHS Performed By: #### P REGQNT #### [facility] [address] [place] [address] Dr. Tyra Poon TYPE AND SCREENon 09-09-2022 TYPE AND SCREEN Negative Normal [facility] Comment on above: Performed By: #### P REGQNT #### [facility] [address] [place] [address] Dr. Tyra Poon QUANTIFERON TB GOLD PLUSon 0 07-10-2022 QuantiFERON Criteria Comment Normal [facility] Comment on above: Result Comment: Martínez [...] test. Performed By: #### Q NTTB #### [facility] [address] [place] [address] Dr. Tyra Poon QuantiFERON Incubation Incubation performed. Normal [facility] Comment on above: Performed By: #### Q NTTB #### [facility] [address] [place] [address] Dr. Tyra Poon QuantiFERON Mitogen Value >10.00 Normal [facility] Comment on above: Performed By: #### Q NTTB #### [facility] [address] [place] [address] Dr. Tyra Poon QuantiFERON Nil Value 0.05 IU/mL Normal [facility] Comment on above: Performed By: #### Q NTTB #### [facility] [address] [address] [address] Tyra Poon QuantiFERON TB1 Ag Value 0.06 IU/mL Normal [facility] Comment on above: Performed By: #### Q NTTB #### [facility] [address] [address] [address] Tyra Poon QuantiFERON TB2 Ag Value 0.07 IU/mL Normal [facility] Comment on above: Performed By: #### Q NTTB #### [facility] [address] [address] [address] Tyra Poon QuantiFERON-TB Gold Plus Negative Normal Negative [facility] Comment on above: Result Comment: No r esponse to M tuberculosis antigens detected. Infection with M tuberculosis is unlikely, but high risk individuals should be considered for additional testing (ATS/IDSA/CDC Clinical Practice Guidelines, 2017). The reference range is an Antigen minus Nil result of <0.35 IU/mL. Chemiluminescence immunoassay methodology Performed By: #### Q NTTB #### [facility] [address] [address] [address] Tyra Poon HEPATITIS B SURFACE ANTIBODY , QUANTon 07-09-2022 Hepatitis B Surf AB Quant <3.1 Critically low Immunity>9.9 [facility] Comment on above: Result Comment: Stat us of Immunity Anti-HBs Level Inconsistent with Immunity 0.0 - 9.9 Consistent with Immunity >9.9 Performed By: #### H EPBSRF #### [facility] [address] [address] [address] Tyra Poon MMR IMMUNITYon 07-09-2022 Mumps Abs, IgG 142.0 AU/mL Normal Immune >10.9 [facility] Comment on above: Result Comment: Nega tive <9.0 Equivocal 9.0 - 10.9 Positive >10.9 A positive result generally indicates past exposure to Mumps virus or previous vaccination. Performed By: #### P REGQNT #### [facility] [address] [place] [address] Dr. Tyra Poon Rubella Antibodies, IgG 11.90 index Normal Immune >0.99 [facility] Comment on above: Result Comment: Non- immune <0.90 Equivocal 0.90 - 0.99 Immune >0.99 Performed By: #### P REGQNT #### [facility] [address] [place] [address] Dr. Tyra Poon Rubeola Ab, IgG 222.0 AU/mL Normal Immune >16.4 [facility] Comment on above: Result Comment: Nega tive <13.5 Equivocal 13.5 - 16.4 Positive >16.4 Presence of antibodies to Rubeola is presumptive evidence of immunity except when acute infection is suspected. Performed By: #### P REGQNT #### [facility] [address] [place] [address] Dr. Tyra Poon VARICELLA IGG ABon 3 Varicella Zoster IgG 3514 index Normal Immune >165 [facility] Comment on above: Result Comment: Nega tive <135 Equivocal 135 - 165 Positive >165 A positive result generally indicates exposure to the pathogen or administration of specific immunoglobulins, but it is not indication of active infection or stage of disease. Performed By: #### U AMIC #### [facility] [address] [place] [address] Dr. Tyra Poon PAP ACOG PANEL 2: 30 to 65on 05-31-2022 . . Normal [facility] Comment on above: Result Comment: Perf ormed at: WB Performed By: #### [id number] #### [facility] [address] [place] [address] Dr. Tyra Poon Age Gdln ACOG Testing 30-65 [facility] Comment on above: Performed By: #### [id number] #### [facility] [address] [place] [address] Dr. Tyra Poon DIAGNOSIS: Comment Normal [facility] Comment on above: Result Comment: NEGA TIVE FOR INTRAEPITHELIAL LESION OR MALIGNANCY. CELLULAR CHANGES ASSOCIATED WITH INFLAMMATION ARE PRESENT. Performed at: WB Performed By: #### [id number] #### [facility] [address] [place] [address] Dr. Tyra Poon HPV Aptima Negative Normal Negative [facility] Comment on above: Result Comment: This nucleic acid amplification test detects fourteen high-risk HPV types (16,18,31,33,35,39,45,51,52,56,58,59,66,68) without differentiation. Performed at: =G Performed By: #### [id number] #### [facility] [address] [address] [address] Tyra Poon HPV Genotype Reflex Comment Normal [facility] Comment on above: Result Comment: Crit eria not met, HPV Genotype not performed. Performed at: WB Performed By: #### [id number] #### [facility] [address] [place] [address] Dr. Tyra Poon Methodology: Comment Normal [facility] Comment on above: Result Comment: This liquid based ThinPrep(R) pap test was screened with the use of an image guided system. Performed at: WB Performed By: #### [id number] #### [facility] [address] [place] [address] Dr. Tyra Poon Note: Comment Normal [facility] Comment on above: Result Comment: The Pap smear is a screening test designed to aid in the detection of premalignant and malignant conditions of the uterine cervix. It is not a diagnostic procedure and should not be used as the sole means of detecting cervical cancer. Both false-positive and false-negative reports do occur. . Performed at: WB Performed By: #### [id number] #### [facility] [address] [place] [address] Dr. Tyra Poon Performed by: Comment Normal [facility] Comment on above: Result Comment: Sharita Watt [employer]outer Hand (ASCP) Performed at: WB Performed By: #### [id number] #### [facility] [address] [place] [address] Dr. Tyra Poon Specimen adequacy: Comment Normal [facility] Comment on above: Result Comment: Sati sfactory for evaluation. Endocervical and/or squamous metaplastic cells (endocervical component) are present. Performed at: WB Performed By: #### [id number] #### [facility] [address] [place] [address] Dr. Tyra Poon US PELVIS AND TRANSVAGon [...] TIM PAZ Date: 2022-05-14 09:50 Normal [facility] AMYLASEon 04-30-2022 Amylase [Catalytic activity/Vol] 40 U/L Normal 25-115 [facility] Comment on above: Performed By: #### D DIM #### [facility] [address] [place] [address] Dr. Tyra Poon CBC AUTO DIFFon 04-30-2022 BASO # 0.1 103/ul Normal 0.0-0.1 [facility] Comment on above: Performed By: #### C BC #### [facility] [address] [place] [address] Dr. Tyra Poon Basophils/100 WBC (Bld) 1.3 % Normal 0.2-2.0 [facility] Comment on above: Performed By: #### C BC #### [facility] [address] [address] [address] Tyra Poon EO # 0.2 103/ul Normal 0.0-0.7 [facility] Comment on above: Performed By: #### C BC #### [facility] [address] [address] [address] Tyra Poon Eosinophils/100 WBC (Bld) 2.9 % Normal 0.9-7.0 [facility] Comment on above: Performed By: #### C BC #### [facility] [address] [address] [address] Tyra Poon Erythrocyte distribution width (RBC) [Ratio] 14.4 % Normal 11.0-15.0 [facility] Comment on above: Performed By: #### C BC #### [facility] [address] [place] [address] Dr. Tyra Poon Hematocrit (Bld) [Volume fraction] 36.8 % Normal 36.0-48.0 [facility] Comment on above: Performed By: #### C BC #### [facility] [address] [place] [address] Dr. Tyra Poon Hemoglobin (Bld) [Mass/Vol] 12.0 g/dL Normal 12.0-16.0 [facility] Comment on above: Performed By: #### C BC #### [facility] [address] [place] [address] Dr. Tyra Poon IG # 0.05 10e3/ul Critically high 0.00-0.03 [facility] Comment on above: Performed By: #### C BC #### [facility] [address] [address] [address] Tyra Poon IG % 0.6 % Critically high 0.0-0.5 [facility] Comment on above: Performed By: #### C BC #### [facility] [address] [place] [address] Dr. Tyra Poon LYMPH # 3.3 103/ul Normal 1.2-3.8 [facility] Comment on above: Performed By: #### C BC #### [facility] [address] [place] [address] Dr. Tyra Poon Lymphocytes/100 WBC (Bld) 38.9 % Normal 20.5-60.0 [facility] Comment on above: Performed By: #### C BC #### [facility] [address] [place] [address] Dr. Tyra Poon MANUAL DIFF REQ NO Normal [facility] Comment on above: Performed By: #### C BC #### [facility] [address] [place] [address] Dr. Tyra Poon MCH (RBC) [Entitic mass] 27.0 pg Normal 26.7-34.0 [facility] Comment on above: Performed By: #### C BC #### [facility] [address] [place] [address] Dr. Tyra Poon MCHC (RBC) [Mass/Vol] 32.6 g/dL Normal 29.9-35.2 [facility] Comment on above: Performed By: #### C BC #### [facility] [address] [place] [address] Dr. Tyra Poon MCV (RBC) [Entitic vol] 82.9 fL Normal 81.0-99.0 [facility] Comment on above: Performed By: #### C BC #### [facility] [address] [place] [address] Dr. Tyra Poon MONO # 0.6 103/ul Normal 0.3-0.8 [facility] Comment on above: Performed By: #### C BC #### [facility] [address] [place] [address] Dr. Tyra Poon Monocytes/100 WBC (Bld) 6.7 % Normal 1.7-12.0 [facility] Comment on above: Performed By: #### C BC #### [facility] [address] [place] [address] Dr. Tyra Poon NEUT # 4.2 103/ul Normal 1.4-6.5 [facility] Comment on above: Performed By: #### C BC #### [facility] [address] [place] [address] Dr. Tyra Poon Neutrophils/100 WBC (Bld) 49.6 % Normal 43.0-75.0 [facility] Comment on above: Performed By: #### C BC #### [facility] [address] [place] [address] Dr. Tyra Poon Platelet mean volume (Bld) [Entitic vol] 9.4 fL Critically low 9.5-13.5 [facility] Comment on above: Performed By: #### C BC #### [facility] [address] [place] [address] Dr. Tyra Poon PLT 347 103/ul Normal 150-450 [facility] Comment on above: Performed By: #### C BC #### [facility] [address] [place] [address] Dr. Tyra Poon RBC 4.44 106/ul Normal 4.20-5.40 [facility] Comment on above: Performed By: #### C BC #### [facility] [address] [place] [address] Dr. Tyra Poon WBC 8.4 103/ul Normal 4.0-11.0 [facility] Comment on above: Performed By: #### C BC #### [facility] [address] [place] [address] ABD/PELVIS WO CONon [...] TIM PAZ Date: 2022-04-30 10:10 Normal [facility] URINE PROFILEon 2 Bilirubin Ql (U) Negative Normal NEGATIVE [facility] Comment on above: Performed By: #### U AMIC #### [facility] [address] [place] [address] Dr. Tyra Poon Clarity (U) CLEAR Normal CLEAR [facility] Comment on above: Performed By: #### U AMIC #### [facility] [address] [address] [address] Tyra Poon Color (U) YELLOW Normal YELLOW [facility] Comment on above: Performed By: #### U AMIC #### [facility] [address] [address] [address] Tyra Poon ERUAHD A micrscopic examination will be performed if indicated. Normal [facility] Comment on above: Performed By: #### U AMIC #### [facility] [address] [address] [address] Tyra Poon Glucose Ql (U) Negative Normal NEGATIVE [facility] Comment on above: Performed By: #### U AMIC #### [facility] [address] [address] [address] Tyra Poon Hemoglobin Ql (U) Negative Normal NEGATIVE [facility] Comment on above: Performed By: #### U AMIC #### [facility] [address] [address] [address] Tyra Poon Ketones Ql (U) Negative Normal NEGATIVE [facility] Comment on above: Performed By: #### U AMIC #### [facility] [address] [address] [address] Tyra Poon LEUKOCYTES Negative Normal NEGATIVE [facility] Comment on above: Performed By: #### U AMIC #### [facility] [address] [address] [address] Tyra Poon Nitrite Ql (U) Negative Normal NEGATIVE [facility] Comment on above: Performed By: #### U AMIC #### [facility] [address] [place] [address] Dr. Tyra Poon pH (U) 6.0 [pH] Normal 5-9 [facility] Comment on above: Performed By: #### U AMIC #### [facility] [address] [place] [address] Dr. Tyra Poon SPEC GRAVITY >=1.030 Abnormal 1.005-<=1.025 [facility] Comment on above: Performed By: #### U AMIC #### [facility] [address] [place] [address] Dr. Tyra Poon UA PROTEIN Negative Normal NEGATIVE/ TRACE [facility] Comment on above: Performed By: #### U AMIC #### [facility] [address] [place] [address] Dr. Tyra Poon UR MICRO IND NOT INDICATED Normal [facility] Comment on above: Performed By: #### U AMIC #### [facility] [address] [place] [address] Dr. Tyra Poon Urobilinogen Qn (U) 0.2 {Phoenix'U}/dL Normal 0.2 - 1. 0 [facility] Comment on above: Performed By: #### U AMIC #### [facility] [address] [place] [address] Dr. Tyra Poon LIPASEon 04-30-2022 Lipase [Catalytic activity/Vol] 83.0 U/L Normal 73.0-393.0 [facility] Comment on above: Performed By: #### D DIM #### [facility] [address] [place] [address] Dr. Tyra Poon URon 04-30-2022 , QUAL Negative Normal NEGATIVE [facility] Comment on above: Performed By: #### U AMIC #### [facility] [address] [place] [address] Dr. Tyra Poon PROF 14(COMP METB)on 022 Albumin [Mass/Vol] 3.6 g/dL Normal 3.4-5.0 [facility] Comment on above: Performed By: #### D DIM #### [facility] [address] [place] [address] Dr. Tyra Poon Albumin/Globulin [Mass ratio] 0.8 {ratio} Normal [facility] Comment on above: Performed By: #### D DIM #### [facility] [address] [place] [address] Dr. Tyra Poon ALP [Catalytic activity/Vol] 65 U/L Normal 46-116 [facility] Comment on above: Performed By: #### D DIM #### [facility] [address] [place] [address] Dr. Tyra Poon ALT [Catalytic activity/Vol] 13 U/L Critically low 14-59 [facility] Comment on above: Performed By: #### D DIM #### [facility] [address] [place] [address] Dr. Tyra Poon Anion gap [Moles/Vol] 12.5 mmol/L Normal [facility] Comment on above: Performed By: #### D DIM #### [facility] [address] [place] [address] Dr. Tyra Poon AST [Catalytic activity/Vol] 12 U/L Critically low 15-37 [facility] Comment on above: Performed By: #### D DIM #### [facility] [address] [address] [address] Tyra Poon Bilirubin [Mass/Vol] 0.3 mg/dL Normal 0.2-1.0 [facility] Comment on above: Performed By: #### D DIM #### [facility] [address] [address] [address] Tyra Poon Calcium [Mass/Vol] 8.8 mg/dL Normal 8.5-10.1 [facility] Comment on above: Performed By: #### D DIM #### [facility] [address] [address] [address] Tyra Poon Chloride [Moles/Vol] 103 mmol/L Normal 98-107 [facility] Comment on above: Performed By: #### D DIM #### [facility] [address] [place] [address] Dr. Tyra Poon CO2 [Moles/Vol] 26.3 mmol/L Normal 21.0-32.0 [facility] Comment on above: Performed By: #### D DIM #### [facility] [address] [address] [address] Tyra Poon Creatinine [Mass/Vol] 0.87 mg/dL Normal 0.55-1.02 [facility] Comment on above: Performed By: #### D DIM #### [facility] [address] [place] [address] Dr. Tyra Poon EGFR-AF SWISS >60 Normal >=60 [facility] Comment on above: Performed By: #### D DIM #### [facility] [address] [address] [address] Tyra Poon EGFR-NON AF SWISS >60 Normal >=60 [facility] Comment on above: Performed By: #### D DIM #### [facility] [address] [place] [address] Dr. Tyra Poon Globulin (S) [Mass/Vol] 4.3 g/dL Normal [facility] Comment on above: Performed By: #### D DIM #### [facility] [address] [address] [address] Tyra Poon Glucose [Mass/Vol] 120 mg/dL Critically high 74-106 [facility] Comment on above: Performed By: #### D DIM #### [facility] [address] [place] [address] Dr. Tyra Poon Potassium [Moles/Vol] 3.8 mmol/L Normal 3.5-5.1 [facility] Comment on above: Performed By: #### D DIM #### [facility] [address] [place] [address] Dr. Tyra Poon Protein [Mass/Vol] 7.9 g/dL Normal 6.4-8.2 [facility] Comment on above: Performed By: #### D DIM #### [facility] [address] [place] [address] Dr. Tyra Poon Sodium [Moles/Vol] 138 mmol/L Normal 136-145 [facility] Comment on above: Performed By: #### D DIM #### [facility] [address] [place] [address] Dr. Tyra Poon Urea nitrogen [Mass/Vol] 11.0 mg/dL Normal 7.0-18.0 [facility] Comment on above: Performed By: #### D DIM #### [facility] [address] [place] [address] Dr. Tyra Poon Urea nitrogen/Creatinine [Mass ratio] 12.6 mg/mg Normal [facility] Comment on above: Performed By: #### D DIM #### [facility] [address] [place] [address] Dr. yTra Poon CBC AUTO DIFFon 01-12-2022 BASO # 0.1 103/ul Normal 0.0-0.1 [facility] Comment on above: Performed By: #### D DIM #### [facility] [address] [place] [address] Dr. Tyra Poon Basophils/100 WBC (Bld) 0.9 % Normal 0.2-2.0 [facility] Comment on above: Performed By: #### D DIM #### [facility] [address] [place] [address] Dr. Tyra Poon EO # 0.2 103/ul Normal 0.0-0.7 [facility] Comment on above: Performed By: #### D DIM #### [facility] [address] [place] [address] Dr. Tyra Poon Eosinophils/100 WBC (Bld) 2.2 % Normal 0.9-7.0 [facility] Comment on above: Performed By: #### D DIM #### [facility] [address] [place] [address] Dr. Tyra Poon Erythrocyte distribution width (RBC) [Ratio] 14.0 % Normal 11.0-15.0 [facility] Comment on above: Performed By: #### D DIM #### [facility] [address] [place] [address] Dr. Tyra Poon Hematocrit (Bld) [Volume fraction] 34.1 % Critically low 36.0-48.0 [facility] Comment on above: Performed By: #### D DIM #### [facility] [address] [place] [address] Dr. Tyra Poon Hemoglobin (Bld) [Mass/Vol] 10.7 g/dL Critically low 12.0-16.0 [facility] Comment on above: Performed By: #### D DIM #### [facility] [address] [place] [address] Dr. Tyra Poon IG # 0.05 10e3/ul Critically high 0.00-0.03 [facility] Comment on above: Performed By: #### D DIM #### [facility] [address] [place] [address] Dr. Tyra Poon IG % 0.6 % Critically high 0.0-0.5 [facility] Comment on above: Performed By: #### D DIM #### [facility] [address] [place] [address] Dr. Tyra Poon LYMPH # 2.6 103/ul Normal 1.2-3.8 [facility] Comment on above: Performed By: #### D DIM #### [facility] [address] [place] [address] Dr. Tyra Poon Lymphocytes/100 WBC (Bld) 31.8 % Normal 20.5-60.0 [facility] Comment on above: Performed By: #### D DIM #### [facility] [address] [place] [address] Dr. Tyra Poon MANUAL DIFF REQ NO Normal [facility] Comment on above: Performed By: #### D DIM #### [facility] [address] [place] [address] Dr. Tyra Poon MCH (RBC) [Entitic mass] 26.6 pg Critically low 26.7-34.0 [facility] Comment on above: Performed By: #### D DIM #### [facility] [address] [place] [address] Dr. Tyra Poon MCHC (RBC) [Mass/Vol] 31.4 g/dL Normal 29.9-35.2 [facility] Comment on above: Performed By: #### D DIM #### [facility] [address] [place] [address] Dr. Tyra Poon MCV (RBC) [Entitic vol] 84.8 fL Normal 81.0-99.0 [facility] Comment on above: Performed By: #### D DIM #### [facility] [address] [place] [address] Dr. Tyra Poon MONO # 0.5 103/ul Normal 0.3-0.8 [facility] Comment on above: Performed By: #### D DIM #### [facility] [address] [place] [address] Dr. Tyra Poon Monocytes/100 WBC (Bld) 6.4 % Normal 1.7-12.0 [facility] Comment on above: Performed By: #### D DIM #### [facility] [address] [place] [address] Dr. Tyra Poon NEUT # 4.7 103/ul Normal 1.4-6.5 [facility] Comment on above: Performed By: #### D DIM #### [facility] [address] [place] [address] Dr. Tyra Poon Neutrophils/100 WBC (Bld) 58.1 % Normal 43.0-75.0 [facility] Comment on above: Performed By: #### D DIM #### [facility] [address] [address] [address] Tyra Poon Platelet mean volume (Bld) [Entitic vol] 9.7 fL Normal 9.5-13.5 [facility] Comment on above: Performed By: #### D DIM #### [facility] [address] [address] [address] Tyra Poon PLT 318 103/ul Normal 150-450 [facility] Comment on above: Performed By: #### D DIM #### [facility] [address] [place] [address] Dr. Tyra Poon RBC 4.02 106/ul Critically low 4.20-5.40 [facility] Comment on above: Performed By: #### D DIM #### [facility] [address] [place] [address] Dr. Tyra Poon WBC 8.0 103/ul Normal 4.0-11.0 [facility] Comment on above: Performed By: #### D DIM #### [facility] [address] [place] [address] Dr. Tyra Poon FERRITINon 01-12-2022 Ferritin [Mass/Vol] 12.0 ng/mL Normal 6.2-137.0 [facility] Comment on above: Performed By: #### D DIM #### [facility] [address] [place] [address] Dr. Tyra Poon FREE T4on 01-12-2022 Free T4 [Mass/Vol] 1.04 ng/dL Normal 0.76-1.46 [facility] Comment on above: Performed By: #### P REGQNT #### [facility] [address] [place] [address] Dr. Tyra Poon IRONon 01-12-2022 Iron [Mass/Vol] 32.0 ug/dL Critically low 50.0-170.0 [facility] Comment on above: Performed By: #### D DIM #### [facility] [address] [place] [address] Dr. Tyra Poon LIPID PROFILEon 01-12-2022 CHOL-HDL RATIO NORM SEE BELOW Normal [facility] Comment on above: Result Comment: 3.3 - 4.4 LOW RISK 4.4 - 7.1 AVERAGE RISK 7.1 - 11.0 MODERATE RISK >11.0 HIGH RISK Performed By: #### U AMIC #### [facility] [address] [place], [place] [address] Dr. Tyra Poon Cholesterol [Mass/Vol] 236 mg/dL Critically high <=200 [facility] Comment on above: Performed By: #### U AMIC #### [facility] [address] [place], [place] [address] Dr. Tyra Poon Cholesterol in HDL [Mass/Vol] 65 mg/dL Critically high 40-60 [facility] Comment on above: Performed By: #### U AMIC #### [facility] [address] [address] [address] Tyra Poon Cholesterol in LDL [Mass/Vol] 149.8 mg/dL Normal [facility] Comment on above: Performed By: #### U AMIC #### [facility] [address] [address] [address] Tyra Poon Cholesterol.total/C holesterol in HDL [Mass ratio] 3.6 {ratio} Normal [facility] Comment on above: Performed By: #### U AMIC #### [facility] [address] [address] [address] Tyra Poon HDL NORMAL > or = 60 mg/dl - LO W CARDIOVASCULAR RISK <40 mg/dl - HIGH CARDIOVASCULAR RISK Normal [facility] Comment on above: Performed By: #### U AMIC #### [facility] [address] [place], [place] [address] Dr. Tyra Poon LDL CALC NORMAL SEE BELOW Normal [facility] Comment on above: Result Comment: <100 mg/dl OPTIMAL 100 - 129 mg/dl NEAR OR ABOVE OPTIMAL 130 - 159 mg/dl BORDERLINE HIGH 160 - 189 mg/dl HIGH >190 mg/dl VERY HIGH Performed By: #### U AMIC #### [facility] [address] [address] [address] Tyra Poon Triglyceride [Mass/Vol] 106 mg/dL Normal <=150 [facility] Comment on above: Performed By: #### U AMIC #### [facility] [address] [place] [address] Dr. Tyra Poon VLDL CALC 21.2 mg/dL Normal [facility] Comment on above: Performed By: #### U AMIC #### [facility] [address] [address] [address] Tyra Poon PROF 14(COMP METB)on 022 Albumin [Mass/Vol] 3.4 g/dL Normal 3.4-5.0 [facility] Comment on above: Performed By: #### U AMIC #### [facility] [address] [place] [address] Dr. Tyra Poon Albumin/Globulin [Mass ratio] 0.8 {ratio} Normal [facility] Comment on above: Performed By: #### U AMIC #### [facility] [address] [place] [address] Dr. Tyra Poon ALP [Catalytic activity/Vol] 63 U/L Normal 46-116 [facility] Comment on above: Performed By: #### U AMIC #### [facility] [address] [place] [address] Dr. Tyra Poon ALT [Catalytic activity/Vol] 24 U/L Normal 14-59 [facility] Comment on above: Performed By: #### U AMIC #### [facility] [address] [address] [address] Tyra Poon Anion gap [Moles/Vol] 10.4 mmol/L Normal [facility] Comment on above: Performed By: #### U AMIC #### [facility] [address] [place] [address] Dr. Tyra Poon AST [Catalytic activity/Vol] 14 U/L Critically low 15-37 [facility] Comment on above: Performed By: #### U AMIC #### [facility] [address] [place] [address] Dr. Tyra Poon Bilirubin [Mass/Vol] 0.3 mg/dL Normal 0.2-1.0 [facility] Comment on above: Performed By: #### U AMIC #### [facility] [address] [place] [address] Dr. Tyra Poon Calcium [Mass/Vol] 8.7 mg/dL Normal 8.5-10.1 [facility] Comment on above: Performed By: #### U AMIC #### [facility] [address] [address] [address] Tyra Poon Chloride [Moles/Vol] 101 mmol/L Normal 98-107 [facility] Comment on above: Performed By: #### U AMIC #### [facility] [address] [place] [address] Dr. Tyra Poon CO2 [Moles/Vol] 29.8 mmol/L Normal 21.0-32.0 [facility] Comment on above: Performed By: #### U AMIC #### [facility] [address] [place] [address] Dr. Tyra Poon Creatinine [Mass/Vol] 0.89 mg/dL Normal 0.55-1.02 [facility] Comment on above: Performed By: #### U AMIC #### [facility] [address] [place] [address] Dr. Tyra Poon EGFR-AF SWISS >60 Normal >=60 [facility] Comment on above: Performed By: #### U AMIC #### [facility] [address] [place] [address] Dr. Tyra Poon EGFR-NON AF SWISS >60 Normal >=60 [facility] Comment on above: Performed By: #### U AMIC #### [facility] [address] [place] [address] Dr. Tyra Poon Globulin (S) [Mass/Vol] 4.3 g/dL Normal [facility] Comment on above: Performed By: #### U AMIC #### [facility] [address] [place] [address] Dr. Tyra Poon Glucose [Mass/Vol] 107 mg/dL Critically high 74-106 [facility] Comment on above: Performed By: #### U AMIC #### [facility] [address] [address] [address] Tyra Poon Potassium [Moles/Vol] 4.2 mmol/L Normal 3.5-5.1 [facility] Comment on above: Performed By: #### U AMIC #### [facility] [address] [address] [address] Tyra Poon Protein [Mass/Vol] 7.7 g/dL Normal 6.4-8.2 [facility] Comment on above: Performed By: #### U AMIC #### [facility] [address] [address] [address] Tyra Poon Sodium [Moles/Vol] 137 mmol/L Normal 136-145 [facility] Comment on above: Performed By: #### U AMIC #### [facility] [address] [address] [address] Tyra Poon Urea nitrogen [Mass/Vol] 15.0 mg/dL Normal 7.0-18.0 [facility] Comment on above: Performed By: #### U AMIC #### [facility] [address] [address] [address] Tyra Poon Urea nitrogen/Creatinine [Mass ratio] 16.9 mg/mg Normal [facility] Comment on above: Performed By: #### U AMIC #### [facility] [address] [address] [address] Tyra Poon TSHon 01-12-2022 TSH 2.550 uIU/mL Normal 0.358-3.740 [facility] Comment on above: Performed By: #### U AMIC #### [facility] [address] [address] [address] Tyra Poon UA RANDOM W/MICROSCOPICon BACTERIA NONE SEEN Normal NONE SEEN [facility] Comment on above: Performed By: #### U AMIC #### [facility] [address] [address] [address] Tyra Poon Bilirubin Ql (U) Negative Normal NEGATIVE [facility] Comment on above: Performed By: #### U AMIC #### [facility] [address] [address] [address] Trya Poon CAST NONE SEEN Normal NONE SEEN [facility] Comment on above: Performed By: #### U AMIC #### [facility] [address] [address] [address] Tyra Poon Clarity (U) CLEAR Normal CLEAR [facility] Comment on above: Performed By: #### U AMIC #### [facility] [address] [address] [address] Tyra Poon Color (U) YELLOW Normal YELLOW [facility] Comment on above: Performed By: #### U AMIC #### [facility] [address] [place] [address] Dr. Tyra Poon Crystals LM Nom (Urine sed) NONE SEEN Normal NONE SEEN [facility] Comment on above: Performed By: #### U AMIC #### [facility] [address] [place] [address] Dr. Tyra Poon Epithelial cells LM Ql (Urine sed) RARE Normal NONE SEEN /RARE [facility] Comment on above: Performed By: #### U AMIC #### [facility] [address] [place] [address] Dr. Tyra Poon Glucose Ql (U) Negative Normal NEGATIVE [facility] Comment on above: Performed By: #### U AMIC #### [facility] [address] [address] [address] Tyra Poon Hemoglobin Ql (U) MODERATE Abnormal NEGATIVE [facility] Comment on above: Performed By: #### U AMIC #### [facility] [address] [address] [address] Tyra Poon Ketones Ql (U) Negative Normal NEGATIVE [facility] Comment on above: Performed By: #### U AMIC #### [facility] [address] [place] [address] Dr. Tyra Poon LEUKOCYTES Negative Normal NEGATIVE [facility] Comment on above: Performed By: #### U AMIC #### [facility] [address] [address] [address] Tyra Poon MUCOUS NONE SEEN Normal NONE SEEN [facility] Comment on above: Performed By: #### U AMIC #### [facility] [address] [address] [address] Tyra Poon Nitrite Ql (U) Negative Normal NEGATIVE [facility] Comment on above: Performed By: #### U AMIC #### [facility] [address] [place] [address] Dr. Tyra Poon pH (U) 6.0 [pH] Normal 5-9 [facility] Comment on above: Performed By: #### U AMIC #### [facility] [address] [place] [address] Dr. Tyra Poon RBC 0-2 Normal 0-2 [facility] Comment on above: Performed By: #### U AMIC #### [facility] [address] [place] [address] Dr. Tyra Poon SPEC GRAVITY 1.025 Normal 1.005-<=1.025 [facility] Comment on above: Performed By: #### U AMIC #### [facility] [address] [place] [address] Dr. Tyra Poon UA PROTEIN Negative Normal NEGATIVE/ TRACE [facility] Comment on above: Performed By: #### U AMIC #### [facility] [address] [place] [address] Dr. Tyra Poon Urobilinogen Qn (U) 0.2 {Phoenix'U}/dL Normal 0.2 - 1. 0 [facility] Comment on above: Performed By: #### U AMIC #### [facility] [address] [place] [address] Dr. Tyra Poon WBC NONE SEEN Normal NONE SEEN [facility] Comment on above: Performed By: #### U AMIC #### [facility] [address] [place] [address] Dr. Tyra Poon Vital Signs Date Time Vital Sign Value Performing Clinician Faci lity 08-30-2024 13:41-0500 Body mass index (BMI) [Ratio] 48.61 kg/m2 Aida Aichholz MANAGER MSW Work Phone: [facility] 08-30-2024 13:41-0500 Body temperature 98.8 [degF] Aida Aichholz MANAGER MSW Work Phone: [facility] 08-30-2024 13:41-0500 Body weight 124.47 kg Aida Aichholz MANAGER MSW Work Phone: [facility] 08-30-2024 13:41-0500 Diastolic blood pressure 84 mm[Hg] Aida Aichholz MANAGER MSW Work Phone: [facility] 08-30-2024 13:41-0500 Heart rate 96 /min Aida Aichholz MANAGER MSW Work Phone: [facility] 08-30-2024 13:41-0500 SaO2% (BldA) [Mass fraction] 97 % Aida Aichholz MANAGER MSW Work Phone: [facility] 08-30-2024 13:41-0500 Systolic blood pressure 122 mm[Hg] Aida Aichholz MANAGER MSW Work Phone: [facility] 04-03-2024 15:48-0400 Body height 160 cm Aida Aichholz MANAGER MSW Work Phone: [facility] 04-03-2024 15:48-0400 Body mass index (BMI) [Ratio] 52.33 kg/m2 Aida Aichholz MANAGER MSW Work Phone: [facility] 04-03-2024 15:48-0400 Body temperature 97.81 [degF] Aida Aichholz MANAGER MSW Work Phone: [facility] 04-03-2024 15:48-0400 Body weight 133.99 kg Aida Aichholz MANAGER MSW Work Phone: [facility] 04-03-2024 15:48-0400 Diastolic blood pressure 86 mm[Hg] Aida Aichholz MANAGER MSW Work Phone: [facility] 04-03-2024 15:48-0400 Heart rate 89 /min Aida Aichholz MANAGER MSW Work Phone: [facility] 04-03-2024 15:48-0400 Respiratory rate 18 /min Aida Aichholz MANAGER MSW Work Phone: [facility] 04-03-2024 15:48-0400 SaO2% (BldA) [Mass fraction] 99 % Aida Aichholz MANAGER MSW Work Phone: [facility] 04-03-2024 15:48-0400 Systolic blood pressure 126 mm[Hg] Aida Aichholz MANAGER MSW Work Phone: [facility] 02-21-2024 15:02-0400 Body height 160 cm Aida Aichholz MANAGER MSW Work Phone: [facility] 02-21-2024 15:02-0400 Body mass index (BMI) [Ratio] 52.08 kg/m2 Aida Aichholz MANAGER MSW Work Phone: [facility] 02-21-2024 15:02-0400 Body temperature 98.8 [degF] Aida Joehholz MANAGER MSW Work Phone: [facility] 02-21-2024 15:02-0400 Body weight 133.36 kg Aida Joehholz MANAGER MSW Work Phone: [facility] 02-21-2024 15:02-0400 Diastolic blood pressure 88 mm[Hg] Aida Aichholz MANAGER MSW Work Phone: [facility] 02-21-2024 15:02-0400 Heart rate 79 /min Aida Aichholz MANAGER MSW Work Phone: [facility] 02-21-2024 15:02-0400 Respiratory rate 18 /min Aida Aichholz MANAGER MSW Work Phone: [facility] 02-21-2024 15:02-0400 SaO2% (BldA) [Mass fraction] 99 % Aida Aichholz MANAGER MSW Work Phone: [facility] 02-21-2024 15:02-0400 Systolic blood pressure 124 mm[Hg] Aida Chaves MANAGER MSW Work Phone: [facility] Encounters Encounter Date Encounter Type Care Provider Facility Start: 08-30-2024 End: 08-30-2024 Bamboo flowsheet Aida Chaves MANAGER MSW Work Phone: [facility] Start: 08-30-2024 End: 08-30-2024 Bamboo flowsheet Aida Chaves MANAGER MSW Work Phone: [facility] Start: 08-30-2024 End: 08-30-2024 ambulatory AIDA ANASTACIO Not Available Start: 08-30-2024 End: 08-30-2024 Office outpatient visit 25 minutes Aida Chaves MANAGER MSW Work Phone: [facility] Comment on above: Primary hypertension (CMS/HCC) (Primary Dx); Secondary pulmonary arterial hypertension (CMS/HCC); Morbid (severe) obesity due to excess calories (CMS/HCC); Body mass index (BMI) 50.0-59.9, adult (CMS/HCC); Primary insomnia; MARCK (obstructive sleep apnea); Gastroesophageal reflux disease, unspecified whether esophagitis present; Edema, lower extremity; Pre-diabetes; Anxiety and depression (CMS/HCC); Metabolic syndrome; Mixed hyperlipidemia (CMS/HCC) Start: 08-27-2024 End: 08-27-2024 Telephone encounter Aida Chaves MANAGER MSW Work Phone: [facility] Start: 08-26-2024 End: 08-27-2024 Refill Aida Anastacio MANAGER MSW Work Phone: [facility] Comment on above: Gastro-esophageal re flux disease without esophagitis Start: 07-20-2024 End: 07-20-2024 Refill Aida Anastacio MANAGER MSW Work Phone: [facility] Comment on above: Dental infection (Pr imary Dx) Start: 07-03-2024 End: 07-03-2024 Telephone encounter Jef Wooten MD Work Phone: [facility] Start: 06-26-2024 End: 06-26-2024 Refill Aida Aichholz MANAGER MSW Work Phone: [facility] Comment on above: Pre-diabetes Start: 06-21-2024 End: 06-21-2024 Refill Aida Aichholz MANAGER MSW Work Phone: [facility] Comment on above: Pre-diabetes Start: 04-25-2024 End: 04-25-2024 Refill Aida Aichholz MANAGER MSW Work Phone: [facility] Comment on above: Nausea (Primary Dx) Start: 04-03-2024 End: 04-03-2024 Office outpatient visit 25 minutes Aida Chaves MANAGER MSW Work Phone: [facility] Comment on above: MARCK (obstructive sle ep apnea) (Primary Dx); Primary hypertension (CMS/HCC); Edema, lower extremity; BMI 50.0-59.9, adult (CMS/HCC); Anxiety and depression (CMS/HCC); Essential (primary) hypertension (CMS/HCC); Essential hypertension (CMS/HCC); Anxiety disorder, unspecified; Anxiety state (CMS/HCC); Gastro-esophageal reflux disease without esophagitis; Insomnia, unspecified Start: 04-03-2024 End: 04-03-2024 Orders Only Aida Chaves MANAGER MSW Work Phone: [facility] Comment on above: Pre-diabetes (Primar y Dx) Start: 03-13-2024 End: 03-13-2024 Refill Aida Aichholz MANAGER MSW Work Phone: [facility] Comment on above: Pre-diabetes (Primar y Dx); BMI 50.0-59.9, adult (CMS/HCC); Metabolic syndrome Start: 02-25-2024 End: 02-25-2024 Orders Only Jef Wooten MD Work Phone: [facility] Comment on above: Anal or rectal pain (Primary Dx) Start: 02-23-2024 End: 02-23-2024 Bamboo flowsheet Jonatan Smith DO Work Phone: [facility] Start: 02-23-2024 End: 02-23-2024 Bamboo flowsheet Jonatan Smith DO Work Phone: [facility] Start: 02-23-2024 End: 02-23-2024 Office outpatient new 30 minutes Jonatan Smith DO Work Phone: [facility] Comment on above: Encounter for diagno stic colonoscopy due to change in bowel habits (Primary Dx); Hemorrhoids, unspecified hemorrhoid type Start: 02-23-2024 End: 02-23-2024 ambulatory JONATAN SMITH Not Available Start: 02-21-2024 End: 02-21-2024 Office outpatient visit 15 minutes Aida Chaves MANAGER MSW Work Phone: [facility] Comment on above: Anal or rectal pain (Primary Dx); BMI 50.0-59.9, adult ([facility]); Chronic rectal pain Start: 02-21-2024 End: 02-21-2024 ambulatory AIDA AICHHOLZ Not Available Start: 02-21-2024 End: 02-21-2024 Bamboo flowsheet Aida Aichholz MANAGER MSW Work Phone: [facility] Start: 02-21-2024 End: 02-21-2024 Bamboo flowsheet Aida Aichholz MANAGER MSW Work Phone: [facility] Start: 12-29-2023 End: 12-29-2023 ambulatory AIDA AICHHOLZ Not Available Start: 11-04-2023 End: 11-04-2023 ambulatory AIAD AICHHOLZ Not Available Start: 09-15-2023 End: 09-15-2023 ambulatory HONORIO SHANE Not Available Start: 11-27-2022 End: 11-28-2022 ambulatory CIGAR[employer] AIDA AICHHOLZ Facility:[facility] Start: 11-17-2022 End: 11-18-2022 ambulatory CIGARETTE VENDOR AIDA AICHHOLZ Facility:[facility] Start: 09-12-2022 Encounter for preprocedural laboratory examination DR HONORIO SHANE . [facility] Start: 09-11-2022 End: 09-12-2022 ambulatory CIGARETTE VENDOR AIDA LEONCIOHOLZ Facility:[facility] Start: 09-09-2022 End: 09-10-2022 ambulatory CIGARETTE VENDOR AIDA AICBakariHOLZ Facility:[facility] Start: 09-09-2022 End: 09-10-2022 Encounter for preprocedural laboratory examination EVANGELINA LIA LEONCIOHOLZ Facility:[facility] Start: 09-02-2022 Encounter for preprocedural cardiovascular examination DR HONORIO SHANE . [facility] Start: 08-28-2022 End: 08-29-2022 ambulatory EVANGELINA LIA LEONCIOHOLZ Facility:[facility] Start: 08-28-2022 End: 08-29-2022 Encounter for preprocedural cardiovascular examination EVANGELINA FANGHOLZ Facility:[facility] Start: 07-08-2022 End: 07-09-2022 ambulatory CIGARETTE VENDOR AIDA LEONCIOHOLZ Facility:[facility] Start: 05-21-2022 End: 05-21-2022 ambulatory CIGARETTE VENDOR AIDA LEONCIOHOLZ Facility:[facility] Start: 05-13-2022 End: 05-14-2022 ambulatory CIGARETTE VENDOR AIDA BASILZ Facility:[facility] Start: 04-30-2022 End: 04-30-2022 ambulatory LU HANKS . Facility:[facility] Start: 01-12-2022 End: 01-13-2022 ambulatory CIGARETTE VENDOR AIDA FANGHOLZ Facility:[facility] Procedures Date Procedure Procedure Detail Performing Clinician Start: 08-30-2024 Hemoglobin glycosyla lexy a1c Aida Joehholz MANAGER MSW Work Phone: Start: 02-29-2024 Colonoscopy Aida Joehh olz MANAGER MSW Work Phone: Start: 11-15-2023 Mammography Aida Aichh olz MANAGER MSW Work Phone: Plan of Treatment Date Care Activity Detail Author Start: 02-28-2034 Screening for malign ant neoplasm of colon [facility] Start: 06-17-2025 Screening for malign ant neoplasm of cervix [facility] Start: 05-04-2025 Influenza vaccination Influenza Vacc ine (#1) [facility] Comment on above: Postponed from 03/05 (Patient Does Not Have Time) Start: 11-14-2024 Screening for malign ant neoplasm of breast Mammogram [facility] Start: 09-20-2024 End: 09-20-2024 Patient encounter procedure 09/20/2024 1:00 PM EDT Office Visit [facility] [address] [id number] Honorio Shane, DO [address] [place] [address] [facility] Start: 08-30-2024 End: 08-30-2025 CBC W Auto Differential panel - Blood CBC and differential Lab Routine Gastroesophageal reflux disease, unspecified whether esophagitis present Expected: 08/30/2024 (Approximate), Expires: 08/30/2025 [facility] Work Phone: Comment on above: Expected: 08/30/2024 (Approximate), Expires: 08/30/2025 Start: 08-30-2024 End: 08-30-2025 Comprehensive metabolic 2000 panel - Serum or Plasma Comprehensive metabolic panel Lab Routine Morbid (severe) obesity due to excess calories (CMS/HCC) Primary hypertension (CMS/HCC) Gastroesophageal reflux disease, unspecified whether esophagitis present Edema, lower extremity Pre-diabetes Metabolic syndrome Mixed hyperlipidemia (CMS/HCC) Expected: 08/30/2024 (Approximate), Expires: 08/30/2025 [facility] Comment on above: Expected: 08/30/2024 (Approximate), Expires: 08/30/2025 Start: 08-30-2024 End: 08-30-2025 Lipid 1996 panel - Serum or Plasma Lipid panel Lab Routine Pre-diabetes Mixed hyperlipidemia (CMS/HCC) Expected: 08/30/2024 (Approximate), Expires: 08/30/2025 [facility] Comment on above: Expected: 08/30/2024 (Approximate), Expires: 08/30/2025 Start: 08-30-2024 End: 08-30-2025 Microalbumin/Creatinine panel in random Urine Microalbumin / creatinine, urine ratio Lab Routine Primary hypertension (CMS/HCC) Pre-diabetes Expected: 08/30/2024 (Approximate), Expires: 08/30/2025 [facility] Comment on above: Expected: 08/30/2024 (Approximate), Expires: 08/30/2025 Start: 08-30-2024 End: 08-30-2025 Thyrotropin [Units/volume] in Serum or Plasma TSH Lab Routine Anxiety and depression ([facility]) Expected: 08/30/2024 (Approximate), Expires: 08/30/2025 [facility] Comment on above: Expected: 08/30/2024 (Approximate), Expires: 08/30/2025 Start: 08-30-2024 End: 08-30-2025 Urinalysis complete panel - Urine Urinalysis with reflex microscopic (clean catch) Lab Routine Primary hypertension ([facility]) Pre-diabetes Expected: 08/30/2024 (Approximate), Expires: 08/30/2025 [facility] Comment on above: Expected: 08/30/2024 (Approximate), Expires: 08/30/2025 Start: 04-03-2024 End: 04-03-2024 Patient encounter procedure 04/03/2024 3:40 PM EDT Office Visit [facility] [address] [place] [address] Aida Chaves NP [address] [place] [id number] [facility] Start: 04-03-2024 End: 04-03-2025 Basic metabolic 1998 panel - Serum or Plasma Basic metabolic panel Lab Routine Pre-diabetes Expected: 04/03/2024 (Approximate), Expires: 04/03/2025 [facility] Work Phone: Comment on above: Expected: 04/03/2024 (Approximate), Expires: 04/03/2025 Start: 04-03-2024 End: 04-03-2025 Hemoglobin A1c/Hemoglobin.total in Blood Hemoglobin A1c Lab Routine Pre-diabetes Expected: 04/03/2024 (Approximate), Expires: 04/03/2025 [facility] Comment on above: Expected: 04/03/2024 (Approximate), Expires: 04/03/2025 Start: 03-05-2024 Influenza vaccination Influenza Vacc ine (#1) [facility] Start: 02-29-2024 End: 02-29-2024 Patient encounter procedure 02/29/2024 10:00 AM EDT Procedure Visit [facility] Jonatan Smith DO [address] [place] [id number] [facility] Start: 02-23-2024 End: 02-23-2024 Patient encounter procedure 02/23/2024 11:00 AM EDT Office Visit [facility] [address] [place] [address] Jonatan Smith DO [address] [facility] [address] [place] [id number] Arrived [facility] Comment on above: Arrived Start: 02-21-2024 End: 02-21-2024 Patient encounter procedure 02/21/2024 3:00 PM EDT Office Visit [facility] [address] [place] [id number] Aida Chaves, ROCKY [address] [place] [address] Arrived [facility] Comment on above: Arrived Start: 2000 Screening for malign ant neoplasm of cervix Pap Smear [facility] Start: 1979 Screening for malign ant neoplasm of colon [facility] Immunizations Immunization Date Immunization Notes Care Provider Fa cili 05-04-2024 influenza, seasonal, injectable Aida Chaves MANAGER MSW Work Phone: [facility] 04-27-2023 tetanus and diphther ia toxoids, adsorbed, preservative free, for adult use (5 Lf of tetanus toxoid and 2 Lf of diphtheria toxoid) Aida Chaves MANAGER MSW Work Phone: [facility] 04-15-2022 influenza, seasonal, injectable Aida Chaves MANAGER MSW Work Phone: [facility] 04-15-2022 influenza virus vacc ine, unspecified formulation Aida Chaves MANAGER MSW Work Phone: [facility] 10-15-2012 tetanus and diphther ia toxoids, adsorbed, preservative free, for adult use (5 Lf of tetanus toxoid and 2 Lf of diphtheria toxoid) Aida Chaves MANAGER MSW Work Phone: [facility] Payers Date Payer Category Payer Private Health Insurance [employer] [id number] [employer] [id number] 2022-Present [phone] [address] [place] [address] [id number] 2022 Unknown [id number] 2022 Unknown [id number] 1979 Unknown [id number] [id number] .2.593 1979 Unknown [id number] 2.16.840.1.869612.3.579 .2.593 1979 Unknown [id number] 2.16.840.1.254792.3.579 .2.593 1979 Unknown [id number] 2.16.840.1.033945.3.579 .2.593 1979 Unknown [id number] 2.16.840.1.278465.3.579 .2.593 1979 Unknown [id number] 2.16.840.1.280771.3.579 .2.593 1979 Unknown [id number] 2.16.840.1.794146.3.579 .2.593 1979 Unknown [id number] 2.16.840.1.369605.3.579 .2.593 1979 Unknown [id number] 2.16.840.1.252081.3.579 .2.593 1979 Unknown [id number] 2.16.840.1.831646.3.579 .2.593 1979 Unknown [id number] 2.16840.1.135952.3.579 .2.125 1979 Unknown [id number] 2.16840.1.920813.3.579 .2.125 1979 Unknown [id number] 2.16.840.1.823642.3.579 .2.9 1979 Unknown [id number] 2.16.840.1.467156.3.579 .2.1259 1979 Unknown [id number] 2.16840.1.098856.3.579 .2.1258 1979 Unknown [id number] 2.16840.1.522117.3.579 .2.125 1979 Unknown [id number] 2.16.840.1.116534.3.579 .2.1259 1959 Private Health Insurance [id number] Self-pay Unknown [id number] [id number] .2.593 Social History Date Type Detail Facility Start: 01-13-2023 Tobacco smoking status KSIS Never sm oked tobacco [facility] Start: 01-13-2023 Tobacco use and exposure Smoke less tobacco non-user [facility] Start: 04-03-2024 End: 08-30-2024 Alcoholic beverage intake Lifetime non-drinker (finding) [facility] Start: 08-01-2023 End: 11-04-2023 History of Social function [facility] Start: 08-01-2023 End: 11-04-2023 Humiliation, Afraid, Rape, and Kick questionnaire [HARK] [facility] Within the last year , have you been afraid of your partner or ex-partner? No [facility] Are you now , , , , never or living with a partner? [facility] How often to you hav e a drink containing alcohol? Monthly or less [facility] How many standard dr inks containing alcohol do you have on a typical day? Patient does not drink [facility] How often do you hav e 6 or more drinks on 1 occasion? Never [facility] How hard is it for y ou to pay for the very basics like food, housing, medical care, and heating Somewhat hard [facility] Do you feel stress - tense, restless, nervous, or anxious, or unable to sleep at night because your mind is troubled all the time - these days [OSQ] To some extent [facility] (I/We) worried wheth er (my/our) food would run out before (I/we) got money to buy more. Never true [facility] Start: 1979 Sex assigned at Not on file [facility] Clinical Notes 09-11-2022 to 08-30-2024 CYNTHIA LOBO - 08/30/2024 1:40 PM ESTAida Chaves NP - 08/30/2024 1:40 PM ESTLisa Anastacio, MANAGER MSW - 08/30/2024 7:09 AM ESTLisa Anastacio, ROCKY - 08/30/2024 7:09 AM ESTPatient Instructions Note Date & Type Note Facility 08-30-2024 History of Presen t illness Narrative Right forearm pain-sunburn pain when being touched started last night. Images from the original note were not included. Chaparrita Roca is a 44 y.o. female presents with chief complaint of No chief complaint on file. HPI: Hypertension This is a chronic problem. The current episode started more than 1 year ago. The problem has been gradually improving since onset. The problem is controlled. Associated symptoms include anxiety and headaches. Pertinent negatives include no chest pain, malaise/fatigue, palpitations, peripheral edema or shortness of breath. There are no associated agents to hypertension. Risk factors for coronary artery disease include diabetes mellitus, dyslipidemia, obesity, sedentary lifestyle and post-menopausal state. Past treatments include beta blockers, calcium channel blockers, angiotensin blockers, diuretics and SUSI inhibitors. The current treatment provides significant improvement. There are no compliance problems. There is no history of kidney disease, CAD/TX, heart failure or left ventricular hypertrophy. Anxiety Presents for follow-up visit. Symptoms include excessive worry, irritability and nervous/anxious behavior. Patient reports no chest pain, decreased concentration, depressed mood, dizziness, muscle tension, nausea, palpitations, panic, shortness of breath or suicidal ideas. Symptoms occur occasionally. The severity of symptoms is mild. The patient sleeps 10 hours per night. The quality of sleep is good. Nighttime awakenings: several. Compliance with medications is 76-100%. Depression Visit Type: follow-up Patient presents with the following symptoms: excessive worry, irritability and nervousness/anxiety. Patient is not experiencing: anhedonia, decreased concentration, depressed mood, fatigue, feelings of worthlessness, muscle tension, palpitations, panic, shortness of breath, suicidal ideas, suicidal planning, thoughts of , weight gain and weight loss. Frequency of symptoms: occasionally Severity: mild Sleep per night: 10 hours Sleep quality: good Nighttime awakenings: several Compliance with medications: 76-100% SUBJECTIVE: MEDICATIONS: Current Outpatient Medications Medication Instructions ALPRAZolam (XANAX) 0.25 mg, Oral, Daily PRN amLODIPine (NORVASC) 10 mg, Oral, Daily buPROPion XL (WELLBUTRIN XL) 150 mg, Oral, Daily busPIRone (BUSPAR) 15 mg, Oral, 2 times daily Cariprazine HCl (Vraylar) 1.5 MG capsule 1 capsule, Oral, Daily carvedilol (COREG) 3.125 mg, Oral, 2 times daily dibucaine (Nupercainal) 1 % ointment APPLY TO THE AFFECTED AREA(S) topically TWICE DAILY escitalopram (LEXAPRO) 20 mg, Oral, Every morning furosemide (LASIX) 20 mg, Oral, Daily lisinopril-hydroCHLOROthiazide 20-12.5 MG tablet 1 tablet, Oral, 2 times daily Ozempic (1 MG/DOSE) 1 mg, Subcutaneous, Every 7 days pantoprazole (PROTONIX) 40 mg, Oral, 2 times daily traZODone (DESYREL) 300 mg, Oral, Nightly Ubrogepant (Ubrelvy) 100 MG tablet 1 tablet at the onset of migraine AVALOS, may repeat in 2 hours if needed. No more than 2 pills in 24 hours, no more than 4 pills per week ALLERGIES: Allergies Allergen Reactions Bee Venom Other Reaction(s): Unknown Flagyl [Metronidazole] Other and GI intolerance Skin bright red felt like on fire Penicillin G Other Reaction(s): swelling, hives Sulfa Antibiotics Other Reaction(s): swelling, hives REVIEW OF SYMPTOMS: Review of Systems Constitutional: Positive for irritability. Negative for appetite change, chills, fever, malaise/fatigue, weight gain and weight loss. HENT: Negative for congestion, ear pain and sore throat. Eyes: Negative for pain, discharge, redness and visual disturbance. Respiratory: Negative for cough, shortness of breath and wheezing. Cardiovascular: Positive for leg swelling. Negative for chest pain and palpitations. Gastrointestinal: Negative for abdominal pain, blood in stool, constipation, diarrhea, nausea and vomiting. Genitourinary: Negative for difficulty urinating, dysuria and frequency. Musculoskeletal: Negative for arthralgias, back pain, joint swelling and myalgias. Skin: Negative for rash and wound. Neurological: Positive for headaches. Negative for dizziness, tremors, seizures and syncope. Psychiatric/Behavioral: Positive for depression. Negative for behavioral problems, decreased concentration, self-injury and suicidal ideas. The patient is nervous/anxious. Hematological: Does not bruise/bleed easily. Endocrine: Negative for polydipsia, polyphagia and polyuria. Allergic/Immunologic: Negative for environmental allergies and food allergies. PAST MEDICAL HISTORY Past Medical History: Diagnosis Date Allergic rhinitis Anxiety and depression ([facility]) 06/29/2023 Chest pain Chronic migraine without aura without status migrainosus, not intractable ([facility]) 06/17/2023 Edema, lower extremity 07/02/2023 Family history of thyroid disease Gastroesophageal reflux disease, unspecified whether esophagitis present 08/23/2023 Hemorrhoids HLD (hyperlipidemia) ([facility]) 08/02/2023 labs: 01/12/22: TC 236 HDL 65 Trigs 106 [id number] HTN (hypertension) ([facility]) 08/02/2023 Insomnia 08/23/2023 Iron deficiency anemia Lower extremity edema 08/02/2023 MARCK (obstructive sleep apnea) 08/23/2023 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[facility]) 08/23/2023 Tricuspid regurgitation 08/23/2023 Past Surgical History: Procedure Laterality Date SECTION, CLASSIC DILATION AND CURETTAGE OF UTERUS HYSTERECTOMY 09/11/2022 still has ovaries TONSILLECTOMY family history includes Cancer in her father; Selena's thyroiditis in her mother; Heart disease in her father; Hypertension in her father and mother. OBJECTIVE: Visit Vitals BP 122/84 (BP Location: Left arm, Patient Position: Sitting, BP Cuff Size: Large adult) Pulse 96 Temp 98.8 F (Temporal) Wt 274 lb 6.4 oz SpO2 97% BMI 48.61 kg/m Smoking Status Never BSA 2.35 m Physical Exam Vitals and nursing note reviewed. Constitutional: General: She is not in acute distress. Appearance: Normal appearance. HENT: Head: Normocephalic and atraumatic. Right Ear: External ear normal. Left Ear: External ear normal. Nose: Nose normal. Mouth/Throat: Mouth: Mucous membranes are moist. Eyes: Extraocular Movements: Extraocular movements intact. Conjunctiva/sclera: Conjunctivae normal. Neck: Vascular: No carotid bruit. Cardiovascular: Rate and Rhythm: Normal rate and regular rhythm. Pulses: Normal pulses. Heart sounds: Normal heart sounds. Pulmonary: Effort: Pulmonary effort is normal. No respiratory distress. Breath sounds: Normal breath sounds. No stridor. No wheezing or rhonchi. Abdominal: General: Bowel sounds are normal. There is no distension. Palpations: Abdomen is soft. There is no mass. Tenderness: There is no abdominal tenderness. Musculoskeletal: General: Normal range of motion. Cervical back: Normal range of motion and neck supple. Right lower leg: No edema. Left lower leg: No edema. Lymphadenopathy: Cervical: No cervical adenopathy. Skin: General: Skin is warm and dry. Capillary Refill: Capillary refill takes 2 to 3 seconds. Findings: No rash. Neurological: General: No focal deficit present. Mental Status: She is alert and oriented to person, place, and time. Psychiatric: Mood and Affect: Mood normal. Behavior: Behavior normal. Thought Content: Thought content normal. Judgment: Judgment normal. ASSESSMENT AND PLAN: Follow up in about 3 months (around 11/27/2024) for Recheck. Problem List Items Addressed This Visit Anxiety and depression ([facility]) PHQ 9=3 JESUS 7=5 Current meds: xanax prn, buproprion, buspar, vraylar, lexapro, and trazodone Relevant Medications buPROPion XL (Wellbutrin XL) 150 MG 24 hr tablet busPIRone (Buspar) 15 MG tablet Cariprazine HCl (Vraylar) 1.5 MG capsule escitalopram (Lexapro) 20 MG tablet Other Relevant Orders TSH Edema, lower extremity Limit sodium, elevate legs, compression stockings Takes lasix as well Relevant Medications furosemide (Lasix) 20 MG tablet Other Relevant Orders Comprehensive metabolic panel Body mass index (BMI) 50.0-59.9, adult ([facility]) HLD (hyperlipidemia) ([facility]) Check labs Relevant Orders Comprehensive metabolic panel Lipid panel HTN (hypertension) ([facility]) - Primary Please check blood pressure daily and record DASH diet Limit caffeine Take medication as directed Contact office if chest pain, pressure, dizziness, shortness of breath, swelling legs Recommend slow position changes Current meds: carvedilol, susi/hydrochlorothiazide Relevant Medications amLODIPine (Norvasc) 10 MG tablet carvedilol (Coreg) 3.125 MG tablet lisinopril-hydroCHLOROthiazide 20-12.5 MG tablet Other Relevant Orders Comprehensive metabolic panel Urinalysis with reflex microscopic (clean catch) Microalbumin / creatinine, urine ratio MARCK (obstructive sleep apnea) You have a diagnosis of obstructive sleep apnea. It is recommended that you wear your PAP device any time while in bed sleeping. Not using the PAP device can increase your risk of elevated/uncontrolled high blood pressure, atrial fibrillation, heart attack, stroke, or sudden . Never got PAP machine, however has lost 50 pounds Insomnia Takes trazodone at HS Relevant Medications traZODone (Desyrel) 150 MG tablet Secondary pulmonary arterial hypertension (CMS/HCC) Per ECHO findings Gastroesophageal reflux disease, unspecified whether esophagitis present Recommendations: freq small meals, nothing to eat or drink at least 2 hours prior to bed, limit caffeine, alcohol, as well as spicy foods Meds to limit or avoid if possible: NSAIDS Elevate HOB if possible Current meds: pantoprazole Relevant Medications pantoprazole (ProtoNix) 40 MG EC tablet Other Relevant Orders CBC and differential Comprehensive metabolic panel Pre-diabetes Dose take ozempic for her diabetes, cannot tolerate metformin d/t diarrhea Doing well with weight loss A1c 5.2 Relevant Medications semaglutide (Ozempic, 1 MG/DOSE,) 4 MG/3ML solution pen-injector Other Relevant Orders POCT glycosylated hemoglobin (Hb A1C) docked device (Completed) Comprehensive metabolic panel Lipid panel Urinalysis with reflex microscopic (clean catch) Microalbumin / creatinine, urine ratio Metabolic syndrome Continue risk factor modification, treatment of chronic conditions Relevant Orders Comprehensive metabolic panel Morbid (severe) obesity due to excess calories (CMS/HCC) Discussed with patient their BMI (actual, verses recommended). We have also discussed lifestyle modifications: attempts to perform physical activity as chronic conditions allow, also to monitor dietary intake: increasing protein/fruits/veggies and lowering carb intake (unless contraindicated). Limit sodas, juices, and sugary drinks. Has been taking Ozempic Relevant Orders Comprehensive metabolic panel Associated Problem(s): Metabolic syndrome Continue risk factor modification, treatment of chronic conditions Associated Problem(s): HLD (hyperlipidemia) (CMS/HCC) Check labs Associated Problem(s): Anxiety and depression (CMS/HCC) PHQ 9=3 JESUS 7=5 Current meds: xanax prn, buproprion, buspar, vraylar, lexapro, and trazodone Associated Problem(s): Pre-diabetes Dose take ozempic for her diabetes, cannot tolerate metformin d/t diarrhea Doing well with weight loss A1c 5.2 Associated Problem(s): Morbid (severe) obesity due to excess calories (CMS/HCC) Discussed with patient their BMI (actual, verses recommended). We have also discussed lifestyle modifications: attempts to perform physical activity as chronic conditions allow, also to monitor dietary intake: increasing protein/fruits/veggies and lowering carb intake (unless contraindicated). Limit sodas, juices, and sugary drinks. Has been taking Ozempic Associated Problem(s): Edema, lower extremity Limit sodium, elevate legs, compression stockings Takes lasix as well Associated Problem(s): Gastroesophageal reflux disease, unspecified whether esophagitis present Recommendations: freq small meals, nothing to eat or drink at least 2 hours prior to bed, limit caffeine, alcohol, as well as spicy foods Meds to limit or avoid if possible: NSAIDS Elevate HOB if possible Current meds: pantoprazole Associated Problem(s): Secondary pulmonary arterial hypertension (CMS/HCC) Per ECHO findings Associated Problem(s): HTN (hypertension) (CMS/HCC) Please check blood pressure daily and record DASH diet Limit caffeine Take medication as directed Contact office if chest pain, pressure, dizziness, shortness of breath, swelling legs Recommend slow position changes Current meds: carvedilol, susi/hydrochlorothiazide Associated Problem(s): MARCK (obstructive sleep apnea) You have a diagnosis of obstructive sleep apnea. It is recommended that you wear your PAP device any time while in bed sleeping. Not using the PAP device can increase your risk of elevated/uncontrolled high blood pressure, atrial fibrillation, heart attack, stroke, or sudden . Never got PAP machine, however has lost 50 pounds Associated Problem(s): Insomnia Takes trazodone at HS documented in this encounter [facility] 08-30-2024 Instructions Aida Chaves NP - 08/30/2024 1:40 PM EST Get labs done: fasting Keep up the great work on your weight loss documented in this encounter [facility] 08-27-2024 Telephone encount er Note Needs a fu appt in the next few weeks [place] [facility] 08-27-2024 Miscellaneous Notes Formattin g of this note might be different from the original. Needs a fu appt in the next few weeks [place] documented in this encounter [facility] 07-03-2024 Telephone encount er Note [facility] does not have ozempic in stock, can you resend 90 day script [facility] ozempic to [facility] [place] [facility] 07-03-2024 Miscellaneous Notes Formattin g of this note might be different from the original. [facility] does not have ozempic in stock, can you resend 90 day script [facility] ozempic to [facility] [place] documented in this encounter [facility] 04-03-2024 History of Presen t illness Narrative Associated Problem(s): Anxiety and depression (CMS/HCC) Stable no med dose changes Needs a refill on xanax [facility] reviewed Associated Problem(s): Pre-diabetes Weight has stabilized, will trial an increase ozempic to 1mg Associated Problem(s): Edema, lower extremity stable Associated Problem(s): HTN (hypertension) (CMS/HCC) At goal , no med dose chagnes Associated Problem(s): MARCK (obstructive sleep apnea) Needs titration study Images from the original note were not included. Chaparrita Roca is a 43 y.o. female presents with chief complaint of No chief complaint on file. HPI: Anxiety/depression: stable, doing well on meds, prn use of xanax, takes vraylar every other day MARCK: never had titration study Hypertension This is a chronic problem. The current episode started more than 1 year ago. The problem is unchanged. The problem is controlled. Associated symptoms include anxiety and peripheral edema. Pertinent negatives include no blurred vision, chest pain, headaches, palpitations or shortness of breath. There are no associated agents to hypertension. Risk factors for coronary artery disease include diabetes mellitus, dyslipidemia, obesity and sedentary lifestyle. Past treatments include beta blockers and calcium channel blockers. The current treatment provides significant improvement. There are no compliance problems. There is no history of CAD/TX. Diabetes She has type 2 diabetes mellitus. Her disease course has been improving. Hypoglycemia symptoms include nervousness/anxiousness. Pertinent negatives for hypoglycemia include no dizziness, headaches, seizures or tremors. Associated symptoms include polydipsia. Pertinent negatives for diabetes include no blurred vision, no chest pain, no fatigue, no foot paresthesias, no polyphagia, no polyuria and no visual change. There are no hypoglycemic complications. Symptoms are stable. There are no diabetic complications. Risk factors for coronary artery disease include diabetes mellitus, dyslipidemia, hypertension, obesity and sedentary lifestyle. Current diabetic treatments: ozempic. An SUSI inhibitor/angiotensin II receptor dayna is being taken. She does not see a cell tender.Eye exam is current. SUBJECTIVE: MEDICATIONS: Current Outpatient Medications Medication Instructions ALPRAZolam (XANAX) 0.25 mg, Oral, Daily PRN amLODIPine (NORVASC) 10 mg, Oral, Daily buPROPion XL (WELLBUTRIN XL) 150 mg, Oral, Daily busPIRone (BUSPAR) 15 mg, Oral, 2 times daily Cariprazine HCl (Vraylar) 1.5 MG capsule 1 capsule, Oral, Daily carvedilol (COREG) 3.125 mg, Oral, 2 times daily dibucaine (Nupercainal) 1 % ointment APPLY TO THE AFFECTED AREA(S) topically TWICE DAILY escitalopram (LEXAPRO) 20 mg, Oral, Every morning furosemide (LASIX) 20 mg, Oral, Daily lisinopril-hydroCHLOROthiazide 20-12.5 MG tablet 1 tablet, Oral, 2 times daily Ozempic (1 MG/DOSE) 1 mg, Subcutaneous, Every 7 days pantoprazole (PROTONIX) 40 mg, Oral, 2 times daily traZODone (DESYREL) 300 mg, Oral, Nightly Ubrogepant (Ubrelvy) 100 MG tablet 1 tablet at the onset of migraine AVALOS, may repeat in 2 hours if needed. No more than 2 pills in 24 hours, no more than 4 pills per week ALLERGIES: Allergies Allergen Reactions Bee Venom Other Reaction(s): Unknown Flagyl [Metronidazole] Other and GI intolerance Skin bright red felt like on fire Penicillin G Other Reaction(s): swelling, hives Sulfa Antibiotics Other Reaction(s): swelling, hives REVIEW OF SYMPTOMS: Review of Systems Constitutional: Negative for appetite change, chills, fatigue and fever. HENT: Negative for congestion, ear pain and sore throat. Eyes: Negative for blurred vision, pain, discharge, redness and visual disturbance. Respiratory: Negative for cough, shortness of breath and wheezing. Cardiovascular: Positive for leg swelling. Negative for chest pain and palpitations. Gastrointestinal: Negative for abdominal pain, blood in stool, constipation, diarrhea, nausea and vomiting. Genitourinary: Negative for difficulty urinating, dysuria and frequency. Musculoskeletal: Negative for arthralgias, back pain, joint swelling and myalgias. Skin: Negative for rash and wound. Neurological: Negative for dizziness, tremors, seizures, syncope and headaches. Psychiatric/Behavioral: Negative for behavioral problems, self-injury and suicidal ideas. The patient is nervous/anxious. Depression Hematological: Does not bruise/bleed easily. Endocrine: Positive for polydipsia. Negative for polyphagia and polyuria. Allergic/Immunologic: Negative for environmental allergies and food allergies. PAST MEDICAL HISTORY Past Medical History: Diagnosis Date Allergic rhinitis Anxiety and depression ([facility]) 06/29/2023 Chest pain Chronic migraine without aura without status migrainosus, not intractable ([facility]) 06/17/2023 Edema, lower extremity 07/02/2023 Family history of thyroid disease Gastroesophageal reflux disease, unspecified whether esophagitis present 08/23/2023 Hemorrhoids HLD (hyperlipidemia) ([facility]) 08/02/2023 labs: 01/12/22: TC 236 HDL 65 Trigs 106 [id number] HTN (hypertension) ([facility]) 08/02/2023 Insomnia 08/23/2023 Iron deficiency anemia Lower extremity edema 08/02/2023 MARCK (obstructive sleep apnea) 08/23/2023 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CMS/HCC) 08/23/2023 Tricuspid regurgitation 08/23/2023 Past Surgical History: Procedure Laterality Date SECTION, CLASSIC DILATION AND CURETTAGE OF UTERUS HYSTERECTOMY 09/11/2022 still has ovaries TONSILLECTOMY family history includes Cancer in her father; Selena's thyroiditis in her mother; Heart disease in her father; Hypertension in her father and mother. OBJECTIVE: Visit Vitals BP 126/86 (BP Location: Left arm, Patient Position: Sitting, BP Cuff Size: Large adult long) Pulse 89 Temp 97.8 F (Temporal) Resp 18 Ht 5' 3 Wt 295 lb 6.4 oz SpO2 99% BMI 52.33 kg/m Smoking Status Never BSA 2.44 m Physical Exam Vitals and nursing note reviewed. Constitutional: General: She is not in acute distress. Appearance: Normal appearance. HENT: Head: Normocephalic and atraumatic. Right Ear: External ear normal. Left Ear: External ear normal. Nose: Nose normal. Mouth/Throat: Mouth: Mucous membranes are moist. Eyes: Extraocular Movements: Extraocular movements intact. Conjunctiva/sclera: Conjunctivae normal. Neck: Vascular: No carotid bruit. Cardiovascular: Rate and Rhythm: Normal rate and regular rhythm. Pulses: Normal pulses. Heart sounds: Normal heart sounds. Pulmonary: Effort: Pulmonary effort is normal. Breath sounds: Normal breath sounds. No wheezing or rales. Abdominal: General: Bowel sounds are normal. There is no distension. Palpations: Abdomen is soft. There is no mass. Tenderness: There is no abdominal tenderness. Musculoskeletal: General: Normal range of motion. Cervical back: Normal range of motion and neck supple. Right lower leg: No edema. Left lower leg: No edema. Lymphadenopathy: Cervical: No cervical adenopathy. Skin: General: Skin is warm and dry. Capillary Refill: Capillary refill takes 2 to 3 seconds. Findings: No rash. Neurological: General: No focal deficit present. Mental Status: She is alert and oriented to person, place, and time. Psychiatric: Mood and Affect: Mood normal. Behavior: Behavior normal. Thought Content: Thought content normal. Judgment: Judgment normal. ASSESSMENT AND PLAN: No follow-ups on file. Problem List Items Addressed This Visit Anxiety and depression (CMS/HCC) Stable no med dose changes Needs a refill on xanax OARRS reviewed Relevant Medications Cariprazine HCl (Vraylar) 1.5 MG capsule escitalopram (Lexapro) 20 MG tablet ALPRAZolam (Xanax) 0.25 MG tablet Edema, lower extremity stable Relevant Medications furosemide (Lasix) 20 MG tablet BMI 50.0-59.9, adult (CMS/HCC) HTN (hypertension) (CMS/HCC) At goal , no med dose chagnes MARCK (obstructive sleep apnea) - Primary Needs titration study Other Visit Diagnoses Essential (primary) hypertension (CMS/HCC) Relevant Medications amLODIPine (Norvasc) 10 MG tablet lisinopril-hydroCHLOROthiazide 20-12.5 MG tablet Essential hypertension (CMS/HCC) Relevant Medications amLODIPine (Norvasc) 10 MG tablet carvedilol (Coreg) 3.125 MG tablet lisinopril-hydroCHLOROthiazide 20-12.5 MG tablet Anxiety disorder, unspecified Relevant Medications buPROPion XL (Wellbutrin XL) 150 MG 24 hr tablet busPIRone (Buspar) 15 MG tablet Anxiety state (CMS/HCC) Relevant Medications busPIRone (Buspar) 15 MG tablet Gastro-esophageal reflux disease without esophagitis Relevant Medications pantoprazole (ProtoNix) 40 MG EC tablet Insomnia, unspecified Relevant Medications traZODone (Desyrel) 150 MG tablet documented in this encounter [facility] 02-23-2024 History of Presen t illness Narrative General Surgery H&P Chaparrita Roca 1980 Chaparrita Roca is a 43 y.o. female presents with chief complaint of Hemorrhoids (Pt presents today for hemorrhoids. She states that she has had them before, but this time she has had them for about a month. She states that at the beginning she noticed a lot of blood, but it has slowed down. Her PCP did look at them and she believes there might be a fissure. She states that she would like to get a colonoscopy as well because she is due for one her father had Hx of colon cancer in his late 50s to early 60s. She is currently taking a stool softener to help with constipation. She does notice blood in her stool from time to time. Denies abdominal pain. + changes in bowel habits. Denies hx of unplanned weight loss. Denies fevers, chills, or sweats. Denies nausea or vomiting. Last colonoscopy was never. SUBJECTIVE: MEDICATIONS: ALLERGIES Current Outpatient Medications Medication Instructions ALPRAZolam (XANAX) 0.25 mg, Oral, Daily PRN amLODIPine (NORVASC) 10 mg, Oral, Daily bisacodyl (DULCOLAX) 5 mg, Oral, Once, Do not crush, chew, or split. Take as detailed on clinic hand out for colonoscopy prep buPROPion XL (WELLBUTRIN XL) 150 mg, Oral, Daily busPIRone (BUSPAR) 15 mg, Oral, 2 times daily Cariprazine HCl (Vraylar) 1.5 MG capsule 1 capsule, Oral, Daily carvedilol (COREG) 3.125 mg, Oral, 2 times daily escitalopram (LEXAPRO) 20 mg, Oral, Every morning furosemide (LASIX) 20 mg, Oral, Daily lisinopril-hydroCHLOROthiazide 20-12.5 MG tablet 1 tablet, Oral, 2 times daily montelukast (SINGULAIR) 10 mg, Oral, Nightly pantoprazole (PROTONIX) 40 mg, Oral, 2 times daily polyethylene glycol (PEG) 3350 (GLYCOLAX) 238 g, Oral, Once, Take as detailed from clinic hand out for colonoscopy prep Semaglutide (OZEMPIC, 0.25 OR 0.5 MG/DOSE, SC) 0.5 mg/mL, Subcutaneous, Weekly traZODone (DESYREL) 300 mg, Oral, Nightly Ubrogepant (Ubrelvy) 100 MG tablet 1 tablet at the onset of migraine AVALOS, may repeat in 2 hours if needed. No more than 2 pills in 24 hours, no more than 4 pills per week Allergies Allergen Reactions Bee Venom Other Reaction(s): Unknown Flagyl [Metronidazole] Other and GI intolerance Skin bright red felt like on fire Penicillin G Other Reaction(s): swelling, hives Sulfa Antibiotics Other Reaction(s): swelling, hives PAST MEDICAL HISTORY: SOCIAL HISTORY SURGICAL HISTORY: Past Medical History: Diagnosis Date Allergic rhinitis Anxiety and depression ([facility]) 06/29/2023 Chest pain Chronic migraine without aura without status migrainosus, not intractable ([facility]) 06/17/2023 Edema, lower extremity 07/02/2023 Family history of thyroid disease Gastroesophageal reflux disease, unspecified whether esophagitis present 08/23/2023 Hemorrhoids HLD (hyperlipidemia) ([facility]) 08/02/2023 labs: 01/12/22: TC 236 HDL 65 Trigs 106 [id number] HTN (hypertension) ([facility]) 08/02/2023 Insomnia 08/23/2023 Iron deficiency anemia Lower extremity edema 08/02/2023 MARCK (obstructive sleep apnea) 08/23/2023 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[facility]) 08/23/2023 Tricuspid regurgitation 08/23/2023 Social History Tobacco Use Smoking status: Never Smokeless tobacco: Never Vaping Use Vaping status: Never Used Substance Use Topics Alcohol use: Never Drug use: Never Past Surgical History: Procedure Laterality Date SECTION, CLASSIC DILATION AND CURETTAGE OF UTERUS HYSTERECTOMY 09/11/2022 still has ovaries TONSILLECTOMY Family History Problem Relation Name Age of Onset Hypertension Mother Selena's thyroiditis Mother Heart disease Father Cancer Father x 2 Hypertension Father Allergies Allergen Reactions Bee Venom Other Reaction(s): Unknown Flagyl [Metronidazole] Other and GI intolerance Skin bright red felt like on fire Penicillin G Other Reaction(s): swelling, hives Sulfa Antibiotics Other Reaction(s): swelling, hives Past Surgical History: Procedure Laterality Date SECTION, CLASSIC DILATION AND CURETTAGE OF UTERUS HYSTERECTOMY 09/11/2022 still has ovaries TONSILLECTOMY Tobacco Use: Low Risk (02/21/2024) Patient History Smoking Tobacco Use: Never Smokeless Tobacco Use: Never Passive Exposure: Not on file Alcohol Use: Not At Risk (08/01/2023) AUDIT-C Frequency of Alcohol Consumption: Monthly or less Average Number of Drinks: Patient does not drink Frequency of Binge Drinking: Never Depression: Not at risk (11/04/2023) PHQ-2 PHQ-2 Score: 2 Physical Activity: Inactive (08/01/2023) Exercise Vital Sign Days of Exercise per Week: 0 days Minutes of Exercise per Session: 0 min REVIEW OF SYMPTOMS: Review of Systems All other systems reviewed and are negative. 10 systems were reviewed. Positives noted above. Remainder are negative per CMS guidelines. OBJECTIVE: Visit Vitals Smoking Status Never Physical Exam Vitals reviewed. General: AAOx3, NAD Head: atraumatic normocephalic Neck: trachea midline. No masses or lymphadenopathy Heart: Regular rate and rhythm Lungs: equal chest rise and fall, non labored breathing Abdomen: soft, nontender, and non distended Ext: motor 5/5 all extremities with no gross deformities Psych: alert and oriented, behavior appropriate ASSESSMENT AND PLAN: Assessment/Plan Diagnoses and all orders for this visit: Encounter for diagnostic colonoscopy due to change in bowel habits - polyethylene glycol, PEG, 3350 (Glycolax) 17 GM/SCOOP powder; Take 238 g by mouth 1 (one) time for 1 dose Take as detailed from clinic hand out for colonoscopy prep - bisacodyl (Dulcolax) 5 MG EC tablet; Take 1 tablet (5 mg) by mouth 1 time for 1 dose Do not crush, chew, or split. Take as detailed on clinic hand out for colonoscopy prep Hemorrhoids, unspecified hemorrhoid type Plan: Patient is increased risk for colon cancer. Colonoscopy and possible internal hemorrhoid banding can be scheduled electively. Patient informed of the risks of procedure which include but not limited to bleeding, perforation, and risks of anesthesia. Patient understood risks and signed informed consent for the procedure under monitored anesthesia care. Handout for bowel prep provided in clinic. Patient was informed of the need for a ride home from the hospital and the need for someone to be with them for the following 24 hrs post procedure. Hemorrhoid instructions: Avoid sitting on the toilet for long periods of time Avoid straining during bowel movements Milk of magnesia 30 ml daily until first bowel movement Take stool softeners (colace) and Miralax as discussed to help with comfort with bowel movements Siiting in warm tub of water/Sitz bath 2-3 times a day: after sitz bath, apply witch agata and large cotton ball to perianal area for 5 minutes and then apply topical Preparation H thinly to the area High fiber diet, ensure adequate water intake daily Topical Dibucaine ointment twice daily as needed for discomfort/pain Thank you, Leonard Smith DO documented in this encounter [facility] 02-21-2024 History of Presen t illness Narrative Associated Problem(s): Anal or rectal pain Will refer to general surgeon, for further evaluation Possible internal hemorrhoids or anal fissure Hemorrhoid pain in the last month pt states she has been very uncomfortable sitting and can only find comfort when laying down. Pt has used suppositories and several OTC medications to help decrease size and relieve pain, but pt has had no changes Images from the original note were not included. Chaparrita Roca is a 43 y.o. female presents with chief complaint of No chief complaint on file. HPI: Rectal pain: over a month, worsening, initially some blood with wiping. Has used stool softeners as well as steroid supp. Minimal relief, worse as the day goes on. No acute abd pain. Family hx of father w colon cancer in the past SUBJECTIVE: MEDICATIONS: Current Outpatient Medications Medication Instructions ALPRAZolam (XANAX) 0.25 mg, Oral, Daily PRN amLODIPine (NORVASC) 10 mg, Oral, Daily buPROPion XL (WELLBUTRIN XL) 150 mg, Oral, Daily busPIRone (BUSPAR) 15 mg, Oral, 2 times daily Cariprazine HCl (Vraylar) 1.5 MG capsule 1 capsule, Oral, Daily carvedilol (COREG) 3.125 mg, Oral, 2 times daily escitalopram (LEXAPRO) 20 mg, Oral, Every morning furosemide (LASIX) 20 mg, Oral, Daily hydrocortisone (ANUSOL-HC) 25 mg, Rectal, 2 times daily lisinopril-hydroCHLOROthiazide 20-12.5 MG tablet 1 tablet, Oral, 2 times daily montelukast (SINGULAIR) 10 mg, Oral, Nightly pantoprazole (PROTONIX) 40 mg, Oral, 2 times daily traZODone (DESYREL) 300 mg, Oral, Nightly Ubrogepant (Ubrelvy) 100 MG tablet 1 tablet at the onset of migraine AVALOS, may repeat in 2 hours if needed. No more than 2 pills in 24 hours, no more than 4 pills per week ALLERGIES: Allergies Allergen Reactions Bee Venom Other Reaction(s): Unknown Flagyl [Metronidazole] Other and GI intolerance Skin bright red felt like on fire Penicillin G Other Reaction(s): swelling, hives Sulfa Antibiotics Other Reaction(s): swelling, hives REVIEW OF SYMPTOMS: Review of Systems Constitutional: Negative for appetite change, chills and fever. HENT: Negative for congestion, ear pain and sore throat. Eyes: Negative for pain, discharge, redness and visual disturbance. Respiratory: Negative for cough, shortness of breath and wheezing. Cardiovascular: Negative for chest pain, palpitations and leg swelling. Gastrointestinal: Positive for blood in stool and rectal pain. Negative for abdominal pain, constipation, diarrhea, nausea and vomiting. Genitourinary: Negative for difficulty urinating, dysuria and frequency. Musculoskeletal: Negative for arthralgias, back pain, joint swelling and myalgias. Skin: Negative for rash and wound. Neurological: Negative for dizziness, tremors, seizures, syncope and headaches. Psychiatric/Behavioral: Negative for behavioral problems, self-injury and suicidal ideas. The patient is nervous/anxious. Depression Hematological: Does not bruise/bleed easily. Endocrine: Negative for polydipsia, polyphagia and polyuria. Allergic/Immunologic: Negative for environmental allergies and food allergies. PAST MEDICAL HISTORY Past Medical History: Diagnosis Date Allergic rhinitis Anxiety and depression ([facility]) 06/29/2023 Chest pain Chronic migraine without aura without status migrainosus, not intractable ([facility]) 06/17/2023 Edema, lower extremity 07/02/2023 Family history of thyroid disease Gastroesophageal reflux disease, unspecified whether esophagitis present 08/23/2023 Hemorrhoids HLD (hyperlipidemia) ([facility]) 08/02/2023 labs: 01/12/22: TC 236 HDL 65 Trigs 106 [id number] HTN (hypertension) ([facility]) 08/02/2023 Insomnia 08/23/2023 Iron deficiency anemia Lower extremity edema 08/02/2023 MARCK (obstructive sleep apnea) 08/23/2023 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[facility]) 08/23/2023 Tricuspid regurgitation 08/23/2023 Past Surgical History: Procedure Laterality Date SECTION, CLASSIC DILATION AND CURETTAGE OF UTERUS HYSTERECTOMY 09/11/2022 still has ovaries TONSILLECTOMY family history includes Cancer in her father; Selena's thyroiditis in her mother; Heart disease in her father; Hypertension in her father and mother. OBJECTIVE: Visit Vitals BP 124/88 (BP Location: Left arm, Patient Position: Sitting, BP Cuff Size: Adult long) Pulse 79 Temp 98.8 F (Temporal) Resp 18 Ht 5' 3 Wt 294 lb SpO2 99% BMI 52.08 kg/m Smoking Status Never BSA 2.43 m Physical Exam Vitals and nursing note reviewed. Constitutional: General: She is not in acute distress. Appearance: Normal appearance. HENT: Head: Normocephalic and atraumatic. Right Ear: External ear normal. Left Ear: External ear normal. Nose: Nose normal. Mouth/Throat: Mouth: Mucous membranes are moist. Eyes: Extraocular Movements: Extraocular movements intact. Conjunctiva/sclera: Conjunctivae normal. Cardiovascular: Rate and Rhythm: Normal rate and regular rhythm. Pulses: Normal pulses. Heart sounds: Normal heart sounds. Pulmonary: Effort: Pulmonary effort is normal. Breath sounds: Normal breath sounds. Abdominal: General: Bowel sounds are normal. There is no distension. Palpations: Abdomen is soft. There is no mass. Tenderness: There is no abdominal tenderness. Genitourinary: Comments: Tenderness to rectal region at the 12 oclock position. No evidence of thrombosed hemorrhoids, and does note to have external hemorroids Internal exam no definite masses noted Musculoskeletal: General: Normal range of motion. Cervical back: Normal range of motion and neck supple. Skin: General: Skin is warm and dry. Capillary Refill: Capillary refill takes 2 to 3 seconds. Findings: No rash. Neurological: General: No focal deficit present. Mental Status: She is alert and oriented to person, place, and time. Psychiatric: Mood and Affect: Mood normal. Behavior: Behavior normal. Thought Content: Thought content normal. Judgment: Judgment normal. ASSESSMENT AND PLAN: No follow-ups on file. Problem List Items Addressed This Visit BMI 50.0-59.9, adult (CMS/HCC) Anal or rectal pain - Primary Will refer to general surgeon, for further evaluation Possible internal hemorrhoids or anal fissure Relevant Orders Ambulatory referral to General Surgery Ambulatory referral to General Surgery RESOLVED: Chronic rectal pain documented in this encounter [facility] 09-11-2022 Note OP Note OPERATION DATE: 09/11/2022 PROCEDURE: Robotic assisted laparoscopic hysterectomy with bilateral salpingectomy with cystoscopy. PREOPERATIVE DIAGNOSIS: Cervical dysplasia, history of abnormal cervical cells, menorrhagia, dyspareunia, dysmenorrhea. POSTOPERATIVE DIAGNOSIS: Cervical dysplasia, history of abnormal cervical cells, menorrhagia, dyspareunia, dysmenorrhea. ANESTHESIA: General. SURGEON: Honorio Shane D.O. LINE INSPECTOR: JOSH Gonzales URINE OUTPUT: Yellow and clear. [...] by Anesthesia first. Patient tolerated procedure well. [facility] 09-11-2022 Note DISCHARGE SUMMARY NOTE DATE: 09/12/2022 [...] pain free and no longer on narcotics. [facility] 09-11-2022 Note OPERATIVE NOTE OPERATION DATE: 09/12/2022 PROCEDURE: Robotic assisted laparoscopic hysterectomy with bilateral salpingectomy with cystoscopy. PREOPERATIVE DIAGNOSIS: Cervical dysplasia, history of abnormal cervical cells, menorrhagia, dyspareunia, dysmenorrhea. POSTOPERATIVE DIAGNOSIS: Cervical dysplasia, history of abnormal cervical cells, menorrhagia, dyspareunia, dysmenorrhea. ANESTHESIA: General. SURGEON: Honorio Shane D.O. LINE INSPECTOR: JOSH Gonzales URINE OUTPUT: Yellow and clear. [...] Anesthesia first. Patient tolerated procedure well. [facility] Evaluation note Diagnosis Anxiety and depression (CMS/HCC)- Primary Screening mammogram for breast cancer BMI 50.0-59.9, adult (CMS/HCC) Lower extremity edema Edema Primary hypertension (CMS/HCC) Unspecified essential hypertension Mixed hyperlipidemia (CMS/HCC) Mixed hyperlipidemia Abnormal weight gain Anxiety and depression (CMS/HCC)- Primary Family history of premature CAD Family history of ischemic heart disease Primary hypertension ([facility]) Unspecified essential hypertension MARCK (obstructive sleep apnea) Obstructive sleep apnea (adult) (pediatric) Pre-diabetes Other abnormal glucose BMI 50.0-59.9, adult ([facility]) Primary hypertension ([facility])- Primary Unspecified essential hypertension Essential (primary) hypertension ([facility]) Unspecified essential hypertension Essential hypertension ([facility]) Unspecified essential hypertension Anxiety disorder, unspecified Anxiety state ([facility]) Anxiety state, unspecified Anxiety and depression ([facility]) Edema, lower extremity Allergic rhinitis, unspecified Allergic rhinitis Allergic rhinitis, cause unspecified Gastro-esophageal reflux disease without esophagitis Insomnia, unspecified MARCK (obstructive sleep apnea) Obstructive sleep apnea (adult) (pediatric) Primary insomnia Persistent disorder of initiating or maintaining sleep Gastroesophageal reflux disease, unspecified whether esophagitis present Lower extremity edema Edema BMI 50.0-59.9, adult ([facility]) Pre-diabetes Other abnormal glucose Anal or rectal pain- Primary BMI 50.0-59.9, adult ([facility]) Chronic rectal pain Pre-diabetes- Primary Other abnormal glucose MARCK (obstructive sleep apnea) Obstructive sleep apnea (adult) (pediatric) Primary hypertension ([facility]) Unspecified essential hypertension Edema, lower extremity BMI 50.0-59.9, adult ([facility]) Anxiety and depression ([facility]) Essential (primary) hypertension ([facility]) Unspecified essential hypertension Essential hypertension ([facility]) Unspecified essential hypertension Anxiety disorder, unspecified Anxiety state ([facility]) Anxiety state, unspecified Gastro-esophageal reflux disease without esophagitis Insomnia, unspecified Nausea- Primary Nausea alone documented in this encounter [facility] HealthcareEvaluation note* Diagnosis Anal or rectal pain- Primary BMI 50.0-59.9, adult ([facility]) Chronic rectal pain documented in this encounter [facility] HealthcareEvaluation note* Diagnosis Anxiety and depression ([facility])- Primary Screening mammogram for breast cancer BMI 50.0-59.9, adult ([facility]) Lower extremity edema Edema Primary hypertension ([facility]) Unspecified essential hypertension Mixed hyperlipidemia ([facility]) Mixed hyperlipidemia Abnormal weight gain Anxiety and depression ([facility])- Primary Family history of premature CAD Family history of ischemic heart disease Primary hypertension ([facility]) Unspecified essential hypertension MARCK (obstructive sleep apnea) Obstructive sleep apnea (adult) (pediatric) Pre-diabetes Other abnormal glucose BMI 50.0-59.9, adult ([facility]) Primary hypertension ([facility])- Primary Unspecified essential hypertension Essential (primary) hypertension ([facility]) Unspecified essential hypertension Essential hypertension ([facility]) Unspecified essential hypertension Anxiety disorder, unspecified Anxiety state ([facility]) Anxiety state, unspecified Anxiety and depression ([facility]) Edema, lower extremity Allergic rhinitis, unspecified Allergic rhinitis Allergic rhinitis, cause unspecified Gastro-esophageal reflux disease without esophagitis Insomnia, unspecified MARCK (obstructive sleep apnea) Obstructive sleep apnea (adult) (pediatric) Primary insomnia Persistent disorder of initiating or maintaining sleep Gastroesophageal reflux disease, unspecified whether esophagitis present Lower extremity edema Edema BMI 50.0-59.9, adult ([facility]) Pre-diabetes Other abnormal glucose Anal or rectal pain- Primary BMI 50.0-59.9, adult ([facility]) Chronic rectal pain Pre-diabetes- Primary Other abnormal glucose MARCK (obstructive sleep apnea) Obstructive sleep apnea (adult) (pediatric) Primary hypertension ([facility]) Unspecified essential hypertension Edema, lower extremity BMI 50.0-59.9, adult ([facility]) Anxiety and depression ([facility]) Essential (primary) hypertension ([facility]) Unspecified essential hypertension Essential hypertension ([facility]) Unspecified essential hypertension Anxiety disorder, unspecified Anxiety state ([facility]) Anxiety state, unspecified Gastro-esophageal reflux disease without esophagitis Insomnia, unspecified Pre-diabetes Other abnormal glucose documented in [facility] encounter [facility]* Diagnosis Encounter for diagnostic colonoscopy due to change in bowel habits- Primary Hemorrhoids, unspecified hemorrhoid type documented in this encounter [facility]* Diagnosis Anal or rectal pain- Primary documented in this [facility]* Diagnosis Pre-diabetes- Primary Other abnormal glucose BMI 50.0-59.9, adult ([facility]) Metabolic syndrome Dysmetabolic Syndrome X documented in this encounter [facility]* Diagnosis Pre-diabetes- Primary Other abnormal glucose documented in this encounter [facility]* Diagnosis MARCK (obstructive sleep apnea)- Primary Obstructive sleep apnea (adult) (pediatric) Primary hypertension ([facility]) Unspecified essential hypertension Edema, lower extremity BMI 50.0-59.9, adult ([facility]) Anxiety and depression ([facility]) Essential (primary) hypertension ([facility]) Unspecified essential hypertension Essential hypertension ([facility]) Unspecified essential hypertension Anxiety disorder, unspecified Anxiety state ([facility]) Anxiety state, unspecified Gastro-esophageal reflux disease without esophagitis Insomnia, unspecified documented in this encounter [facility]* Diagnosis Anxiety and depression ([facility])- Primary Screening mammogram for breast cancer BMI 50.0-59.9, adult ([facility]) Lower extremity edema Edema Primary hypertension ([facility]) Unspecified essential hypertension Mixed hyperlipidemia ([facility]) Mixed hyperlipidemia Abnormal weight gain Anxiety and depression ([facility])- Primary Family history of premature CAD Family history of ischemic heart disease Primary hypertension ([facility]) Unspecified essential hypertension MARCK (obstructive sleep apnea) Obstructive sleep apnea (adult) (pediatric) Pre-diabetes Other abnormal glucose BMI 50.0-59.9, adult ([facility]) Primary hypertension ([facility])- Primary Unspecified essential hypertension Essential (primary) hypertension ([facility]) Unspecified essential hypertension Essential hypertension ([facility]) Unspecified essential hypertension Anxiety disorder, unspecified Anxiety state ([facility]) Anxiety state, unspecified Anxiety and depression ([facility]) Edema, lower extremity Allergic rhinitis, unspecified Allergic rhinitis Allergic rhinitis, cause unspecified Gastro-esophageal reflux disease without esophagitis Insomnia, unspecified MARCK (obstructive sleep apnea) Obstructive sleep apnea (adult) (pediatric) Primary insomnia Persistent disorder of initiating or maintaining sleep Gastroesophageal reflux disease, unspecified whether esophagitis present Lower extremity edema Edema BMI 50.0-59.9, adult ([facility]) Pre-diabetes Other abnormal glucose Anal or rectal pain- Primary BMI 50.0-59.9, adult ([facility]) Chronic rectal pain Pre-diabetes- Primary Other abnormal glucose MARCK (obstructive sleep apnea) Obstructive sleep apnea (adult) (pediatric) Primary hypertension ([facility]) Unspecified essential hypertension Edema, lower extremity BMI 50.0-59.9, adult ([facility]) Anxiety and depression ([facility]) Essential (primary) hypertension ([facility]) Unspecified essential hypertension Essential hypertension ([facility]) Unspecified essential hypertension Anxiety disorder, unspecified Anxiety state ([facility]) Anxiety state, unspecified Gastro-esophageal reflux disease without esophagitis Insomnia, unspecified Pre-diabetes Other abnormal glucose documented in this encounter [facility]* Diagnosis Anxiety and depression ([facility] Primary Screening mammogram for breast cancer BMI 50.0-59.9, adult ([facility]) Lower extremity edema Edema Primary hypertension ([facility]) Unspecified essential hypertension Mixed hyperlipidemia ([facility]) Mixed hyperlipidemia Abnormal weight gain Anxiety and depression ([facility])- Primary Family history of premature CAD Family history of ischemic heart disease Primary hypertension ([facility]) Unspecified essential hypertension MARCK (obstructive sleep apnea) Obstructive sleep apnea (adult) (pediatric) Pre-diabetes Other abnormal glucose BMI 50.0-59.9, adult ([facility]) Primary hypertension ([facility])- Primary Unspecified essential hypertension Essential (primary) hypertension ([facility]) Unspecified essential hypertension Essential hypertension ([facility]) Unspecified essential hypertension Anxiety disorder, unspecified Anxiety state ([facility]) Anxiety state, unspecified Anxiety and depression ([facility]) Edema, lower extremity Allergic rhinitis, unspecified Allergic rhinitis Allergic rhinitis, cause unspecified Gastro-esophageal reflux disease without esophagitis Insomnia, unspecified MARCK (obstructive sleep apnea) Obstructive sleep apnea (adult) (pediatric) Primary insomnia Persistent disorder of initiating or maintaining sleep Gastroesophageal reflux disease, unspecified whether esophagitis present Lower extremity edema Edema BMI 50.0-59.9, adult ([facility]) Pre-diabetes Other abnormal glucose Anal or rectal pain- Primary BMI 50.0-59.9, adult ([facility]) Chronic rectal pain Pre-diabetes- Primary Other abnormal glucose MARCK (obstructive sleep apnea) Obstructive sleep apnea (adult) (pediatric) Primary hypertension ([facility]) Unspecified essential hypertension Edema, lower extremity BMI 50.0-59.9, adult ([facility]) Anxiety and depression ([facility]) Essential (primary) hypertension ([facility]) Unspecified essential hypertension Essential hypertension ([facility]) Unspecified essential hypertension Anxiety disorder, unspecified Anxiety state ([facility]) Anxiety state, unspecified Gastro-esophageal reflux disease without esophagitis Insomnia, unspecified Dental infection- Primary documented in this encounter [facility]* Diagnosis Anxiety and depression ([facility] Primary Screening mammogram for breast cancer BMI 50.0-59.9, adult ([facility]) Lower extremity edema Edema Primary hypertension ([facility]) Unspecified essential hypertension Mixed hyperlipidemia ([facility]) Mixed hyperlipidemia Abnormal weight gain Anxiety and depression ([facility])- Primary Family history of premature CAD Family history of ischemic heart disease Primary hypertension ([facility]) Unspecified essential hypertension MARCK (obstructive sleep apnea) Obstructive sleep apnea (adult) (pediatric) Pre-diabetes Other abnormal glucose BMI 50.0-59.9, adult ([facility]) Primary hypertension ([facility])- Primary Unspecified essential hypertension Essential (primary) hypertension ([facility]) Unspecified essential hypertension Essential hypertension ([facility]) Unspecified essential hypertension Anxiety disorder, unspecified Anxiety state ([facility]) Anxiety state, unspecified Anxiety and depression ([facility]) Edema, lower extremity Allergic rhinitis, unspecified Allergic rhinitis Allergic rhinitis, cause unspecified Gastro-esophageal reflux disease without esophagitis Insomnia, unspecified MARCK (obstructive sleep apnea) Obstructive sleep apnea (adult) (pediatric) Primary insomnia Persistent disorder of initiating or maintaining sleep Gastroesophageal reflux disease, unspecified whether esophagitis present Lower extremity edema Edema BMI 50.0-59.9, adult ([facility]) Pre-diabetes Other abnormal glucose Anal or rectal pain- Primary BMI 50.0-59.9, adult ([facility]) Chronic rectal pain Pre-diabetes- Primary Other abnormal glucose MARCK (obstructive sleep apnea) Obstructive sleep apnea (adult) (pediatric) Primary hypertension ([facility]) Unspecified essential hypertension Edema, lower extremity BMI 50.0-59.9, adult ([facility]) Anxiety and depression ([facility]) Essential (primary) hypertension ([facility]) Unspecified essential hypertension Essential hypertension ([facility]) Unspecified essential hypertension Anxiety disorder, unspecified Anxiety state ([facility]) Anxiety state, unspecified Gastro-esophageal reflux disease without esophagitis Insomnia, unspecified Gastro-esophageal reflux disease without esophagitis documented in this encounter [facility]* Diagnosis Anxiety and depression ([facility])- Primary Screening mammogram for breast cancer BMI 50.0-59.9, adult ([facility]) Lower extremity edema Edema Primary hypertension ([facility]) Unspecified essential hypertension Mixed hyperlipidemia ([facility]) Mixed hyperlipidemia Abnormal weight gain Anxiety and depression ([facility])- Primary Family history of premature CAD Family history of ischemic heart disease Primary hypertension ([facility]) Unspecified essential hypertension MARCK (obstructive sleep apnea) Obstructive sleep apnea (adult) (pediatric) Pre-diabetes Other abnormal glucose BMI 50.0-59.9, adult ([facility]) Primary hypertension ([facility])- Primary Unspecified essential hypertension Essential (primary) hypertension ([facility]) Unspecified essential hypertension Essential hypertension ([facility]) Unspecified essential hypertension Anxiety disorder, unspecified Anxiety state ([facility]) Anxiety state, unspecified Anxiety and depression ([facility]) Edema, lower extremity Allergic rhinitis, unspecified Allergic rhinitis Allergic rhinitis, cause unspecified Gastro-esophageal reflux disease without esophagitis Insomnia, unspecified MARCK (obstructive sleep apnea) Obstructive sleep apnea (adult) (pediatric) Primary insomnia Persistent disorder of initiating or maintaining sleep Gastroesophageal reflux disease, unspecified whether esophagitis present Lower extremity edema Edema BMI 50.0-59.9, adult ([facility]) Pre-diabetes Other abnormal glucose Anal or rectal pain- Primary BMI 50.0-59.9, adult ([facility]) Chronic rectal pain Pre-diabetes- Primary Other abnormal glucose MARCK (obstructive sleep apnea) Obstructive sleep apnea (adult) (pediatric) Primary hypertension ([facility]) Unspecified essential hypertension Edema, lower extremity BMI 50.0-59.9, adult ([facility]) Anxiety and depression ([facility]) Essential (primary) hypertension ([facility]) Unspecified essential hypertension Essential hypertension ([facility]) Unspecified essential hypertension Anxiety disorder, unspecified Anxiety state ([facility]) Anxiety state, unspecified Gastro-esophageal reflux disease without esophagitis Insomnia, unspecified Primary hypertension ([facility])- Primary Unspecified essential hypertension Secondary pulmonary arterial hypertension ([facility]) Morbid (severe) obesity due to excess calories ([facility]) Body mass index (BMI) 50.0-59.9, adult ([facility]) Primary insomnia Persistent disorder of initiating or maintaining sleep MARCK (obstructive sleep apnea) Obstructive sleep apnea (adult) (pediatric) Gastroesophageal reflux disease, unspecified whether esophagitis present Edema, lower extremity Pre-diabetes Other abnormal glucose Anxiety and depression ([facility]) Metabolic syndrome Dysmetabolic Syndrome X Mixed hyperlipidemia ([facility]) Mixed hyperlipidemia documented in this encounter [facility]ative[facility] Consultation (Routine) - Pending Review Specialty Diagnoses / Procedures Referred By Benedict vera Referred To Contact General Surgery Diagnoses Anal or rectal pain Procedures VA OFFICE/OUTPATIENT NEW HIGH MDM 60 MINUTES Aida Chaves NP [address] [place] [address] Jonatan Smith, [address] [facility] [address] [place] [address] Referral ID Status Reason Start Date Expiration Date Visits Requested Visits Authorized [id number] Pending Review Specialty Services Required 02/21/2024 08/19/2024 1 1 * Consultation (Routine) - Pending Review Specialty Diagnoses / Procedures Referred By Benedict vera Referred To Contact General Surgery Diagnoses Anal or rectal pain Procedures VA OFFICE/OUTPATIENT NEW HIGH MDM 60 MINUTES Aida Chaves NP [address] [place] [address] Jonatan Smith DO [address] [facility] [address] [place] [address] Referral ID Status Reason Start Date Expiration Date Visits Requested Visits Authorized [id number] Pending Review Specialty Services Required 02/21/2024 08/19/2024 1 1 [facility] Summary Purpose Family History No Family History Records FoundNo Family History Records Found Advance Directives No Advanced Directives Records FoundNo Advanced Directives Records Found Additional Source Comments INFORMATION SOURCE (unrecogn ized section and content) DATE CREATED AUTHOR 12/11/2022 [facility] DATE CREATED AUTHOR AUTHOR'S ORGANIZ ATION 09/01/2024 [facility] [employer] Care Teams (unrecognized sec tion and content) Assistant Branch Manager Relationship Specialty Start Date End Date Jef Wooten MD [address] [place] [address] PCP - General Family Medicine 07/28/23 Assistant Branch Manager Relationship Specialty Start Date End Date Jef Wooten MD [address] [place] [address] PCP - General Family Medicine 07/28/23 Assistant Branch Manager Relationship Specialty Start Date End Date Jef Wooten MD [address] [place] [address] PCP - General Family Medicine 07/28/23 Assistant Branch Manager Relationship Specialty Start Date End Date Jef Wooten MD [address] [place] [address] PCP - General Family Medicine 07/28/23 Assistant Branch Manager Relationship Specialty Start Date End Date Jef Wooten MD [address] [place] [phone] PCP - General Family Medicine 07/28/23 Assistant Branch Manager Relationship Specialty Start Date End Date Jef Wooten MD [address] [place] [address] PCP - General Family Medicine 07/28/23 Assistant Branch Manager Relationship Specialty Start Date End Date Jef Wooten MD [address] [place] [address] PCP - General Family Medicine 07/28/23 Assistant Branch Manager Relationship Specialty Start Date End Date Jef Wooten MD [address] [place] [address] PCP - General Family Medicine 07/28/23 Assistant Branch Manager Relationship Specialty Start Date End Date Jef Wooten MD [address] [place] [address] PCP - General Family Medicine 07/28/23 Assistant Branch Manager Relationship Specialty Start Date End Date Jef Wooten MD [address] [place] [address] PCP - General Family Medicine 07/28/23 Assistant Branch Manager Relationship Specialty Start Date End Date Jfe Wooten MD [address] [place] [phone] PCP - General Family Medicine 07/28/23 Assistant Branch Manager Relationship Specialty Start Date End Date Jef Wooten MD [address] [place] [phone] PCP - General Family Medicine 07/28/23 Assistant Branch Manager Relationship Specialty Start Date End Date Jef Wooten MD [address] [place] [address] PCP - General Family Medicine 07/28/23 Assistant Branch Manager Relationship Specialty Start Date End Date Jef Wooten MD [address] [place] [address] PCP - General Family Medicine 07/28/23 Reason for Visit (unrecogniz ed section and content) Reason Comments Hemorrhoids Pt presents today fo r hemorrhoids. She states that she has had them before, but this time she has had them for about a month. She states that at the beginning she noticed a lot of blood, but it has slowed down. Her PCP did look at them and she believes there might be a fissure. She states that she would like to get a colonoscopy as well because she is due for one. She is currently taking a stool softener to help with constipation. Reason Comments Med Refill FOR RECORDS PERTAINING TO PATIENTS WHO ARE [...] BE BASED ON THE PRIMARY CLINICAL RECORDS. [facility] provides no warranty or guarantee of the accuracy or completeness of information in this document.
== END 2024-09-20 17:25 | disposition home or self-care (01) ==
LOC: LAB 17:24
PROVIDERS: PCP Nurse Practitioner; Visit Provider Obstetrics & Gynecology
DX: Z01.419 Encounter for gynecological examination (general) (routine) without abnormal findings (principal)
CPT/HCPCS: 87624; 88175

== ENCOUNTER 2025-01-20 10:46 | Outpatient (OUT) | payer BC, SELFPAY ==
--- OUTSIDE RECORDS SUMMARY | 2025-01-20 10:50 | XMS_ITS | Clinical Summary ---
Author Organization [facility] Address [id number] [address] [place] [address] Care Team Providers Care Diagnostic Assistant Name Role Phone Unavailable Primary Care Provider Unavailabl e Social History Tobacco Use Types Packs/Day Years Used Date Smoking Tobacco: Never Assessed Childcare Answer Date Recorded Childcare Unknown 12/14/2018 Employment Answer Date Recorded Employment Unknown 12/14/2018 Purpose - Life Answer Date Recorded Purpose and direction in life Unknown Comments Unknown Sex and Gender Information Value Date Recorded Sex Assigned at Not on file Legal Sex Female 12:08 PM EDT Gender Identity Not on file Sexual Orientation Not on file Plan of Treatment Not on file Medical Devices Not on file Insurance [employer] Member Subscriber Plan / Payer (Ef fective 2016-Present) Name:Laverne Roca Relation to Subscriber:Self Name:Laverne Roca Payer ID:Not on file Type:Not on file Address: [place] [id number]
--- OUTSIDE RECORDS SUMMARY | 2025-01-20 10:52 | XMS_ITS | CCD ---
Author Organization [facility] CliniSymi Care Team Providers Care Table Worker Name Role Phone AICHHOLZ, LOKIE DRIVER AIDA Primary Care Unavailable ARIA, NISH Consulting Unavailable ARIA, NISH Attending Unavailable ARIA, NISH Admitting Unavailable DEMARIO ., LU Attending Unavailable CURTISER, DR TIM Dunaway Consulting Unavailable AICHHOLZ, LOKIE DRIVER AIDA Primary Care Unavailable DEMARIO ., LU Admitting Unavailable DEMARIO ., LU Consulting Unavailable AICHHOLZ, LOKIE DRIVER AIDA Attending Unavailable AICHHOLZ, LOKIE DRIVER AIDA Admitting Unavailable AICHHOLZ, LOKIE DRIVER AIDA Primary Care Unavailable AICHHOLZ, LOKIE DRIVER AIDA Consulting Unavailable AICHHOLZ, LOKIE DRIVER AIDA Primary Care Unavailable ACOSTA ., DR OLMEDO Consulting Unavailable ACOSTA ., DR OLMEDO Attending Unavailable ACOSTA ., DR OLMEDO Admitting Unavailable AICHHOLZ, LOKIE DRIVER AIDA Primary Care Unavailable ACOSTA ., DR OLMEDO Admitting Unavailable ACOSTA ., DR OLMEDO Consulting Unavailable ACOSTA ., DR OLMEDO Attending Unavailable AICHHOLZ, LOKIE DRIVER AIDA Primary Care Unavailable ACOSTA ., DR OLMEDO Admitting Unavailable ACOSTA ., DR OLMEDO Consulting Unavailable ACOSTA ., DR OLMEDO Attending Unavailable AICHHOLZ, LOKIE DRIVER AIDA Consulting Unavailable AICHHOLZ, LOKIE DRIVER AIDA Attending Unavailable AICHHOLZ, LOKIE DRIVER AIDA Admitting Unavailable AICHHOLZ, LOKIE DRIVER AIDA Primary Care Unavailable CATYEBER, DR TIM Dunaway Consulting Unavailable AICHHOLZ, LOKIE DRIVER AIDA Consulting Unavailable AICHHOLZ, LOKIE DRIVER AIDA Attending Unavailable AICHHOLZ, LOKIE DRIVER AIDA Admitting Unavailable AICHHOLZ, LOKIE DRIVER AIDA Primary Care Unavailable AICHHOLZ, LOKIE DRIVER AIDA Attending Unavailable AICHHOLZ, LOKIE DRIVER AIDA Admitting Unavailable AICHHOLZ, LOKIE DRIVER AIDA Primary Care Unavailable AICHHOLZ, LOKIE DRIVER AIDA Consulting Unavailable AICHHOLZ, LOKIE DRIVER AIDA Attending Unavailable AICHHOLZ, LOKIE DRIVER AIDA Admitting Unavailable AICHHOLZ, LOKIE DRIVER AIDA Primary Care Unavailable AICHHOLZ, LOKIE DRIVER AIDA Consulting Unavailable AICHHOLZ, LOKIE DRIVER AIDA Primary Care Unavailable ACOSTA ., DR OLMEDO Admitting Unavailable ACOSTA ., DR OLMEDO Consulting Unavailable ACOSTA ., DR OLMEDO Attending Unavailable SANTINO CAZARES Consulting Unavailable DESHAUN BOWENS II Consulting Unavailable NICOLE ESCOTO Consulting Unavailable Jef Wooten MD Primary Care Provider [phone] AICHHOLZ, AIDA Attending Unavailable SANDIE PRIETO Attending Unavailable HONORIO SHANE Attending Unavailable AICHHOLZ, AIDA Attending Unavailable AICHHOLZ, AIDA Attending Unavailable AICHHOLZ, AIDA Attending Unavailable JONATAN SMITH Attending Unavailable AICHHOLZ, AIDA Attending Unavailable Allergies Allergy Classification Reported Allergen(s) Allergy Type Date of Onset Reaction(s) Facility (1 source) Bee pollen Drug allergy (disorder) [facility] (1 source) Penicillins Drug allergy (disorder) 03-31-20 15 [facility] (1 source) Sulfamethoxazole / Trimethoprim Drug Allergy 03-31-20 15 [facility] (20 sources) Honey bee venom Allergy to substance 01-14-20 23 [facility] (20 sources) metroNIDAZOLE Drug Allergy 07-28-19 24 Other, GI intolerance [facility] (20 sources) Penicillin G Drug Allergy 01-14-20 23 [facility] (20 sources) Sulfonamides (Antibiotic) Drug Allergy 01-14-20 23 [facility] Medications Current Medications Medication Drug Class(es) Dates Sig (Normalized) Sig (Original) amLODIPine 10 mg oral tablet (20 sources) Dihydropyridine Calcium Channel Dayna Start: 12-29-2023 End: 11-28-2024 take 1 tablet by mouth once daily amLODIPine (Norvasc) 10 MG tablet Indications: Primary hypertension Take 1 tablet (10 mg) by mouth Daily 90 tablet 1 08/30/2024 Active azithromycin 250 mg oral tablet (8 sources) Macrolide Antimicrobial Start: 01-19-2025 take 2 tablets by mouth once daily azithromycin (Zithromax) 250 MG tablet Indications: Mucocele of mouth 2 tablets day #1, 1 tablet day #2-#5 6 tablet 01/19/2025 Active Start: 11-30-2024 End: 01-19-2025 take 2 tablets by mouth once daily azithromycin (Zithromax) 250 MG tablet Indications: Mucocele of mouth 2 tablets day #1, 1 tablet day #2-#5 6 tablet 11/30/2024 01/19/2025 Discontinued (Reorder) Start: 07-20-2024 End: 08-30-2024 azithromycin (Zithromax) 250 MG tablet Indications: Dental infection 2 pills day#1, 1 pill day #2-#5 6 tablet 07/20/2024 08/30/2024 Discontinued (Therapy completed) bisacodyl 5 mg delayed release oral tablet [...] colonoscopy prep 4 tablet 02/23/2024 02/23/2024 Active 24 hr buPROPion hydrochloride 150 mg extended release oral tablet (20 sources) Aminoketone Start: 12-29-2023 End: 11-28-2024 take 1 tablet by mouth once daily buPROPion XL (Wellbutrin XL) 150 MG 24 hr tablet Indications: Anxiety and depression Take 1 tablet (150 mg) by mouth Daily 90 tablet 1 08/30/2024 Active busPIRone hydrochloride 15 mg oral tablet (20 sources) Start: 12-29-2023 End: 11-28-2024 take 1 tablet by mouth in the morning busPIRone (Buspar) 15 MG tablet Indications: Anxiety and depression Take 1 tablet (15 mg) by mouth in the morning and 1 tablet (15 mg) before bedtime. 180 tablet 1 08/30/2024 Active cariprazine 1.5 mg oral capsule (20 sources) Atypical Antipsychotic Start: 12-29-2023 End: 11-28-2024 take 1 capsule by mouth once daily Cariprazine HCl (Vraylar) 1.5 MG capsule Indications: Anxiety and depression Take 1 capsule by mouth Daily 90 capsule 1 08/30/2024 Active carvedilol 3.125 mg oral tablet (20 sources) alpha-Adrenergic Dayna, beta-Adrenergic Dayna Start: 12-29-2023 End: 11-28-2024 take 1 tablet by mouth in the morning carvedilol (Coreg) 3.125 MG tablet Indications: Primary hypertension Take 1 tablet (3.125 mg) by mouth in the morning and 1 tablet (3.125 mg) before bedtime. 180 tablet 1 08/30/2024 Active dibucaine 0.01 mg/mg rectal ointment (19 sources) Standardized Chemical Allergen Start: 02-29-2024 dibucaine (Nupercainal) 1 % ointment Indications: Anal or rectal pain APPLY TO THE AFFECTED AREA(S) topically TWICE DAILY 56 g 2 02/29/2024 Active Start: 02-25-2024 dibucaine (Nup ercainal) 1 % ointment Indications: Anal or rectal pain Apply topically 2 (two) times a day 56.7 g 2 02/25/2024 Active doxycycline hyclate 100 mg oral tablet (1 source) Tetracycline-class Drug Start: 11-02-2024 End: 11-12-2024 take 1 tablet by mouth in the morning doxycycline (Vibra-Tabs) 100 MG tablet Indications: Breast abscess Take 1 tablet (100 mg) by mouth in the morning and 1 tablet (100 mg) in the evening. Do all this for 10 days. Take with a full glass of water and do not lie down for at least 30 minutes after. 20 tablet 11/02/2024 11/12/2024 Active escitalopram 20 mg oral tablet (20 sources) Serotonin Reuptake Inhibitor Start: 02-15-2024 End: 11-28-2024 take 1 tablet by mouth in the morning escitalopram (Lexapro) 20 MG tablet Indications: Anxiety and depression Take 1 tablet (20 mg) by mouth in the morning. 90 tablet 1 08/30/2024 Active furosemide 20 mg oral tablet (20 sources) Loop Diuretic Start: 12-29-2023 End: 11-28-2024 take 1 tablet by mouth once daily furosemide (Lasix) 20 MG tablet Indications: Edema, lower extremity Take 1 tablet (20 mg) by mouth Daily 90 tablet 1 08/30/2024 Active hydroCHLOROthiazide 12.5 mg / lisinopril 20 mg oral tablet (20 sources) Thiazide Diuretic, Angiotensin Converting Enzyme Inhibitor Start: 12-29-2023 End: 11-28-2024 take 1 tablet by mouth in the morning lisinopril-hydroCH LOROthiazide 20-12.5 MG tablet Indications: Primary hypertension Take 1 tablet by mouth in the morning and 1 tablet before bedtime. 180 tablet 1 08/30/2024 Active hydrocortisone acetate 25 mg rectal suppository [...] 7 days 21 tablet 04/25/2024 05/02/2024 Active pantoprazole 40 mg delayed release oral tablet (20 sources) Proton Pump Inhibitor Start: 08-27-2024 End: 11-28-2024 take 1 tablet by mouth in the morning pantoprazole (ProtoNix) 40 MG EC tablet Indications: Gastroesophageal reflux disease, unspecified whether esophagitis present Take 1 tablet (40 mg) by mouth in the morning and 1 tablet (40 mg) before bedtime. 180 tablet 1 08/30/2024 Active Start: 12-29-2023 End: 07-02-2024 take 1 tablet by mouth in the morning pantoprazole (ProtoNix) 40 MG EC tablet Indications: Gastro-esophageal reflux disease without esophagitis Take 1 tablet (40 mg) by mouth in the morning and 1 tablet (40 mg) before bedtime. 180 tablet 1 04/03/2024 Active polyethylene glycol 3350 [id number] mg powder for oral solution (2 sources) [...] (Ozempic, 1 MG/DOSE,) 4 MG/3ML solution pen-injector (20 sources) Start: 08-30-2024 semaglutide (O zempic, 1 MG/DOSE,) 4 MG/3ML solution pen-injector Indications: Pre-diabetes Inject 1 mg under the skin every 7 (seven) days 9 mL 1 08/30/2024 Active Start: 08-30-2024 End: 11-22-2024 semaglutide (Ozempic, 1 MG/D OSE,) 4 MG/3ML [...] days 3 mL 2 03/13/2024 04/10/2024 Active traZODone hydrochloride 150 mg oral tablet (20 sources) Serotonin Reuptake Inhibitor Start: 12-29-2023 End: 11-28-2024 take 2 tablets by mouth at bedtime traZODone (Desyrel) 150 MG tablet Indications: Primary insomnia Take 2 tablets (300 mg) by mouth at bedtime 180 tablet 1 08/30/2024 Active ubrogepant 100 mg oral tablet (20 sources) Start: 06-17-2023 Ubrogepant (Ubrelvy) 100 MG tablet Indications: Chronic migraine without aura without status migrainosus, not intractable 1 tablet at the onset of migraine AVALOS, may repeat in 2 hours if needed. No more than 2 pills in 24 hours, no more than 4 pills per week 15 tablet 2 06/17/2023 Active Completed/Discontinued Medications Medication Drug Class(es) Dates Sig (Normalized) Sig (Original) acetaminophen 325 mg / HYDROcodone bitartrate 5 mg oral tablet (1 source) Opioid Agonist Start: 09-07-2024 End: 09-20-2024 take 1 tablet by mouth every six hours for pain HYDROcodone-acetam inophen (Owendale) 5-325 MG tablet Indications: Postoperative pain Take 1 tablet by mouth every 6 (six) hours if needed for severe pain for up to 5 days 20 tablet 09/07/2024 09/20/2024 Discontinued ALPRAZolam 0.25 mg oral tablet (20 sources) Benzodiazepine Start: 12-29-2023 End: 09-20-2024 take 1 tablet by mouth once daily as needed for anxiety ALPRAZolam (Xanax) 0.25 MG tablet Indications: Anxiety and depression (CMS/HCC) Take 1 tablet (0.25 mg) by mouth Daily as needed for anxiety (panic attacks) for up to 10 days 10 tablet 04/03/2024 09/20/2024 Discontinued montelukast 10 mg oral tablet (11 sources) Leukotriene Receptor Antagonist Start: 12-29-2023 End: 04-03-2024 take 1 tablet by mouth at bedtime montelukast (Singulair) 10 MG tablet Indications: Allergic rhinitis, unspecified , Allergic rhinitis Take 1 tablet (10 mg) by mouth at bedtime 90 tablet 1 12/29/2023 04/03/2024 Discontinued (Therapy completed) Problems Active Problems Problem Classification Problem Date Documented Date Episodic/Chronic Abdominal pain (5 sources) Pelvic and perineal pain; Translations: [Unspecified abdominal pain] Onset: 04-30-2022 Episodic Anxiety disorders (20 sources) Mixed anxiety and depressive disorder; Translations: [Anxiety disorder, unspecified] Onset: 06-29-2023 06-29-2023 Chronic Diseases of mouth; excluding dental (4 sources) Mucocele of mouth; Translations: [Other lesions of oral mucosa] Onset: 11-30-2024 11-30-2024 Episodic Disorders of lipid metabolism (20 sources) Hyperlipidemia; Translations: [Hyperlipidemia, unspecified] Onset: 08-02-2023 08-02-2023 Chronic Esophageal disorders (20 sources) Gastroesophageal reflux disease; [...] Primary insomnia; Translations: [Primary insomnia] 08-30-2024 Chronic Nonmalignant breast conditions (4 sources) Abscess of breast; Translations: [Abscess of the breast and nipple] Onset: 11-02-2024 11-02-2024 Episodic Nonspecific chest pain (1 source) Chest pain, [...] nutritional; endocrine; and metabolic disorders (20 sources) Metabolic syndrome X; Translations: [Metabolic syndrome] Onset: 03-13-2024 03-13-2024 Chronic Other nutritional; endocrine; and metabolic disorders (9 sources) Obesity caused by energy imbalance; Translations: [...] METHICILLIN RSIST STAPH INF] Onset: 05-04-2022 Episodic Diabetes mellitus without complication (20 sources) Prediabetes; Translations: [Prediabetes] Onset: 10-21-2023 Resolved: 02-21-2024 11-04-2023 Episodic Disorders of teeth and jaw (11 sources) Infection of tooth; Translations: [Periapical abscess without sinus] Onset: 07-20-2024 07-20-2024 Episodic Hemorrhoids (20 sources) Hemorrhoids; Translations: [Other hemorrhoids] Onset: 02-09-2024 02-09-2024 Episodic Immunizations and screening for infectious disease (1 source) Encounter for screening for human papillomavirus (HPV); Translations: [ENC SCREENING HUMAN PAPILLOMAVIRUS] Onset: 05-23-2022 Episodic Nausea and vomiting (15 sources) Nausea; Translations: [Nausea] Onset: 04-25-2024 04-25-2024 Episodic Other aftercare (1 source) Other long term care phlebotomist (current) drug therapy; Translations: [OTH LEAD JANITOR CURRENT DRUG THERAPY] Onset: 05-04-2022 Episodic Other [...] 01-14-2022 Episodic Residual codes; unclassified (20 sources) Edema of lower extremity; Translations: [Localized edema] Onset: 07-02-2023 02-21-2024 Episodic Residual codes; unclassified (20 sources) Insomnia; Translations: [Insomnia, unspecified] Onset: 08-23-2023 08-23-2023 Episodic Residual codes; unclassified (20 sources) FH: premature coronary heart disease; Translations: [Family history of ischemic heart disease and other diseases of the circulatory system] Onset: 11-04-2023 11-04-2023 Episodic Results Test Name Value Interpretation Reference Range Facility HbA1c (Bld) [Mass fraction]o n 08-30-2024 Interpretation and review of laboratory results Normal [facility] [employer] countson 08-30-2024 HbA1c (Bld) [Mass fraction] 5.20 % [facility] Cytology Cervical or vaginal smear or scraping studyOrdered By: Adeline Darden on 09-15-2023 [facility] AUTO DIFFon 11-27-2022 BASO # 0.1 103/ul Normal 0.0-0.1 [facility] Comment on above: Performed By: #### D DIM #### [facility] [address] [address] [address] Tyra Poon Basophils/100 WBC (Bld) 0.9 % Normal 0.2-2.0 [facility] Comment on above: Performed By: #### D DIM #### [facility] [address] [address] [address] Tyra Poon EO # 0.3 103/ul Normal 0.0-0.7 [facility] Comment on above: Performed By: #### D DIM #### [facility] [address] [address] [address] Tyra Poon Eosinophils/100 WBC (Bld) 3.9 % Normal 0.9-7.0 [facility] Comment on above: Performed By: #### D DIM #### [facility] [address] [place] [address] Dr. Tyra Poon Erythrocyte distribution width (RBC) [Ratio] 14.1 % Normal 11.0-15.0 [facility] Comment on above: Performed By: #### D DIM #### [facility] [address] [place] [address] Dr. Tyra Poon Hematocrit (Bld) [Volume fraction] 33.5 % Critically low 36.0-48.0 [facility] Comment on above: Performed By: #### D DIM #### [facility] [address] [place] [address] Dr. Tyra Poon Hemoglobin (Bld) [Mass/Vol] 10.3 g/dL Critically low 12.0-16.0 [facility] Comment on above: Performed By: #### D DIM #### [facility] [address] [place] [address] Dr. Tyra Poon IG # 0.03 10e3/ul Normal 0.00-0.03 [facility] Comment on above: Performed By: #### D DIM #### [facility] [address] [place] [address] Dr. Tyra Poon IG % 0.4 % Normal 0.0-0.5 [facility] Comment on above: Performed By: #### D DIM #### [facility] [address] [place] [address] Dr. Tyra Poon LYMPH # 2.3 103/ul Normal 1.2-3.8 [facility] Comment on above: Performed By: #### D DIM #### [facility] [address] [place] [address] Dr. Tyra Poon Lymphocytes/100 WBC (Bld) 34.3 % Normal 20.5-60.0 [facility] Comment on above: Performed By: #### D DIM #### [facility] [address] [place] [address] Dr. Tyra Poon MANUAL DIFF REQ NO Normal [facility] Comment on above: Performed By: #### D DIM #### [facility] [address] [place] [address] Dr. Tyra Poon MCH (RBC) [Entitic mass] 25.9 pg Critically low 26.7-34.0 [facility] Comment on above: Performed By: #### D DIM #### [facility] [address] [place] [address] Dr. Tyra Poon MCHC (RBC) [Mass/Vol] 30.7 g/dL Normal 29.9-35.2 [facility] Comment on above: Performed By: #### D DIM #### [facility] [address] [address] [address] Tyra Poon MCV (RBC) [Entitic vol] 84.4 fL Normal 81.0-99.0 [facility] Comment on above: Performed By: #### D DIM #### [facility] [address] [place] [address] Dr. Tyra Poon MONO # 0.5 103/ul Normal 0.3-0.8 [facility] Comment on above: Performed By: #### D DIM #### [facility] [address] [place] [address] Dr. Tyra Poon Monocytes/100 WBC (Bld) 7.2 % Normal 1.7-12.0 [facility] Comment on above: Performed By: #### D DIM #### [facility] [address] [place] [address] Dr. Tyra Poon NEUT # 3.6 103/ul Normal 1.4-6.5 [facility] Comment on above: Performed By: #### D DIM #### [facility] [address] [place] [address] Dr. Tyra Poon Neutrophils/100 WBC (Bld) 53.3 % Normal 43.0-75.0 [facility] Comment on above: Performed By: #### D DIM #### [facility] [address] [place] [address] Dr. Tyra Poon Platelet mean volume (Bld) [Entitic vol] 9.1 fL Critically low 9.5-13.5 [facility] Comment on above: Performed By: #### D DIM #### [facility] [address] [place] [address] Dr. Tyra Poon PLT 325 103/ul Normal 150-450 [facility] Comment on above: Performed By: #### D DIM #### [facility] [address] [address] [address] Tyra Poon RBC 3.97 106/ul Critically low 4.20-5.40 [facility] Comment on above: Performed By: #### D DIM #### [facility] [address] [address] [address] Tyra Pono WBC 6.7 103/ul Normal 4.0-11.0 [facility] Comment on above: Performed By: #### D DIM #### [facility] [address] [place] [address] Dr. Tyra Poon D-DIMERon 11-27-2022 D-DIMER 0.36 mg/L FEU Normal <=0.59 [facility] Comment on above: Performed By: #### D DIM #### [facility] [address] [place] [address] Dr. Tyra Poon D-DIMER COMMENTS SEE BELOW Normal [facility] Comment on above: Result Comment: Incr [...] hospitalization. Performed By: #### D DIM #### [facility] [address] [place] [address] Dr. Tyra Poon ECHOCARDIO M/2D COMPLETEon 0 11-27-2022 ECHOCARDIO M/2D COMPLETE Patient: CHAPARRITA ROCA Exam Date: 11/27/2022 : 1980 Gender:F Ordering : EVANGELINA CHAVES LOKIE DRIVER Admission #: [id number] Family : Order #: [id number] CLICK HERE TO VIEW EXAM ECHOCARDIOGRAM REPORT [...] White M.D. on 11/29/2022 at 15:33 Normal [facility] FREE T4on 11-27-2022 Free T4 [Mass/Vol] 1.00 ng/dL Normal 0.76-1.46 [facility] Comment on above: Performed By: #### D DIM #### [facility] [address] [address] [address] Tyra Poon PROF 14(COMP METB)on 023 Albumin [Mass/Vol] 3.1 g/dL Critically low 3.4-5.0 [facility] Comment on above: Performed By: #### T SH, CMP #### [facility] [address] [address] [address] Tyra Poon Albumin/Globulin [Mass ratio] 0.8 {ratio} Normal [facility] Comment on above: Performed By: #### T SH, CMP #### [facility] [address] [address] [address] Tyra Poon ALP [Catalytic activity/Vol] 73 U/L Normal 46-116 [facility] Comment on above: Performed By: #### T SH, CMP #### [facility] [address] [place] [address] Dr. Tyra Poon ALT [Catalytic activity/Vol] 17 U/L Normal 14-59 [facility] Comment on above: Performed By: #### T SH, CMP #### [facility] [address] [address] [address] Tyra Poon Anion gap [Moles/Vol] 8.5 mmol/L Normal [facility] Comment on above: Performed By: #### T SH, CMP #### [facility] [address] [address] [address] Tyra Poon AST [Catalytic activity/Vol] 12 U/L Critically low 15-37 [facility] Comment on above: Performed By: #### T SH, CMP #### [facility] [address] [address] [address] Tyra Poon Bilirubin [Mass/Vol] 0.2 mg/dL Normal 0.2-1.0 [facility] Comment on above: Performed By: #### T SH, CMP #### [facility] [address] [address] [address] Tyra Poon Calcium [Mass/Vol] 8.5 mg/dL Normal 8.5-10.1 [facility] Comment on above: Performed By: #### T SH, CMP #### [facility] [address] [address] [address] Tyra Poon Chloride [Moles/Vol] 101 mmol/L Normal 98-107 [facility] Comment on above: Performed By: #### T SH, CMP #### [facility] [address] [address] [address] Tyra Poon CO2 [Moles/Vol] 32.3 mmol/L Critically high 21.0-32.0 [facility] Comment on above: Performed By: #### T SH, CMP #### [facility] [address] [address] [address] Tyra Poon Creatinine [Mass/Vol] 0.95 mg/dL Normal 0.55-1.02 [facility] Comment on above: Performed By: #### T SH, CMP #### [facility] [address] [place] [address] Dr. Tyra Poon EGFR-AF BAHAMIAN >60 Normal >=60 [facility] Comment on above: Performed By: #### T SH, CMP #### [facility] [address] [place] [address] Dr. Tyra Poon EGFR-NON AF BAHAMIAN >60 Normal >=60 [facility] Comment on above: Performed By: #### T SH, CMP #### [facility] [address] [place] [address] Dr. Tyra Poon Globulin (S) [Mass/Vol] 4.1 g/dL Normal [facility] Comment on above: Performed By: #### T SH, CMP #### [facility] [address] [place] [address] Dr. Tyra Poon Glucose [Mass/Vol] 105 mg/dL Normal 74-106 [facility] Comment on above: Performed By: #### T SH, CMP #### [facility] [address] [place] [address] Dr. Tyra Poon Potassium [Moles/Vol] 3.8 mmol/L Normal 3.5-5.1 [facility] Comment on above: Performed By: #### T SH, CMP #### [facility] [address] [place] [address] Dr. Tyra Poon Protein [Mass/Vol] 7.2 g/dL Normal 6.4-8.2 [facility] Comment on above: Performed By: #### T SH, CMP #### [facility] [address] [place] [address] Dr. Tyra Poon Sodium [Moles/Vol] 138 mmol/L Normal 136-145 [facility] Comment on above: Performed By: #### T SH, CMP #### [facility] [address] [place] [address] Dr. Tyra Poon Urea nitrogen [Mass/Vol] 14.0 mg/dL Normal 7.0-18.0 [facility] Comment on above: Performed By: #### T SH, CMP #### [facility] [address] [place] [address] Dr. Tyra Poon Urea nitrogen/Creatinine [Mass ratio] 14.7 mg/mg Normal [facility] Comment on above: Performed By: #### T SH, CMP #### [facility] [address] [place] [address] Dr. Tyra Poon TSHon 11-27-2022 TSH 1.423 uIU/mL Normal 0.358-3.740 [facility] Comment on above: Performed By: #### T SH, CMP #### [facility] [address] [place] [address] Dr. Tyra Poon BUNon 09-12-2022 Urea nitrogen [Mass/Vol] 10.0 mg/dL Normal 7.0-18.0 [facility] Comment on above: Performed By: #### D DIM #### [facility] [address] [place] [address] Dr. Tyra Poon CBC AUTO DIFFon 09-12-2022 BASO # 0.0 103/ul Normal 0.0-0.1 [facility] Comment on above: Performed By: #### P REGQNT #### [facility] [address] [place] [address] Dr. Tyra Poon Basophils/100 WBC (Bld) 0.1 % Critically low 0.2-2.0 [facility] Comment on above: Performed By: #### P REGQNT #### [facility] [address] [place] [address] Dr. Tyra Poon EO # 0.0 103/ul Normal 0.0-0.7 [facility] Comment on above: Performed By: #### P REGQNT #### [facility] [address] [place] [address] Dr. Tyra Poon Eosinophils/100 WBC (Bld) 0.1 % Critically low 0.9-7.0 [facility] Comment on above: Performed By: #### P REGQNT #### [facility] [address] [place] [address] Dr. Tyra Poon Erythrocyte distribution width (RBC) [Ratio] 14.9 % Normal 11.0-15.0 [facility] Comment on above: Performed By: #### P REGQNT #### [facility] [address] [place] [address] Dr. Tyra Poon Hematocrit (Bld) [Volume fraction] 30.8 % Critically low 36.0-48.0 [facility] Comment on above: Performed By: #### P REGQNT #### [facility] [address] [place] [address] Dr. Tyra Poon Hemoglobin (Bld) [Mass/Vol] 10.1 g/dL Critically low 12.0-16.0 [facility] Comment on above: Performed By: #### P REGQNT #### [facility] [address] [place] [address] Dr. Tyra Poon IG # 0.14 10e3/ul Critically high 0.00-0.03 [facility] Comment on above: Performed By: #### P REGQNT #### [facility] [address] [place] [address] Dr. Tyra Poon IG % 0.9 % Critically high 0.0-0.5 [facility] Comment on above: Performed By: #### P REGQNT #### [facility] [address] [address] [address] Tyra Poon LYMPH # 2.2 103/ul Normal 1.2-3.8 [facility] Comment on above: Performed By: #### P REGQNT #### [facility] [address] [place] [address] Dr. Tyar Poon Lymphocytes/100 WBC (Bld) 14.6 % Critically low 20.5-60.0 [facility] Comment on above: Performed By: #### P REGQNT #### [facility] [address] [place] [address] Dr. Tyra Poon MANUAL DIFF REQ NO Normal [facility] Comment on above: Performed By: #### P REGQNT #### [facility] [address] [place] [address] Dr. Tyra Poon MCH (RBC) [Entitic mass] 27.3 pg Normal 26.7-34.0 [facility] Comment on above: Performed By: #### P REGQNT #### [facility] [address] [place] [address] Dr. Tyra Poon MCHC (RBC) [Mass/Vol] 32.8 g/dL Normal 29.9-35.2 [facility] Comment on above: Performed By: #### P REGQNT #### [facility] [address] [place] [address] Dr. Tyra Poon MCV (RBC) [Entitic vol] 83.2 fL Normal 81.0-99.0 [facility] Comment on above: Performed By: #### P REGQNT #### [facility] [address] [place] [address] Dr. Tyra Poon MONO # 1.0 103/ul Critically high 0.3-0.8 [facility] Comment on above: Performed By: #### P REGQNT #### [facility] [address] [place] [address] Dr. Tyra Poon Monocytes/100 WBC (Bld) 6.6 % Normal 1.7-12.0 [facility] Comment on above: Performed By: #### P REGQNT #### [facility] [address] [address] [address] Tyra Poon NEUT # 11.8 103/ul Critically high 1.4-6.[address] [facility] Comment on above: Performed By: #### P REGQNT #### [facility] [address] [address] [address] Tyra Poon Neutrophils/100 WBC (Bld) 77.7 % Critically high 43.0-75.0 [facility] Comment on above: Performed By: #### P REGQNT #### [facility] [address] [address] [address] Tyra Poon Platelet mean volume (Bld) [Entitic vol] 9.3 fL Critically low 9.5-13.5 [facility] Comment on above: Performed By: #### P REGQNT #### [facility] [address] [place] [address] Dr. Tyra Poon PLT 282 103/ul Normal 150-450 [facility] Comment on above: Performed By: #### P REGQNT #### [facility] [address] [place] [address] Dr. Tyra Poon RBC 3.70 106/ul Critically low 4.20-5.40 [facility] Comment on above: Performed By: #### P REGQNT #### [facility] [address] [place] [address] Dr. Tyra Poon WBC 15.2 103/ul Critically high 4.0-11.[address] [facility] Comment on above: Performed By: #### P REGQNT #### [facility] [address] [place] [address] Dr. Tyra Poon BASO # 0.0 103/ul Normal 0.0-0.1 [facility] Comment on above: Performed By: #### C BC #### [facility] [address] [place] [address] Dr. Tyra Poon Basophils/100 WBC (Bld) 0.2 % Normal 0.2-2.0 [facility] Comment on above: Performed By: #### C BC #### [facility] [address] [address] [address] Tyra Poon EO # 0.0 103/ul Normal 0.0-0.7 [facility] Comment on above: Performed By: #### C BC #### [facility] [address] [address] [address] Tyra Poon Eosinophils/100 WBC (Bld) 0.0 % Critically low 0.9-7.0 [facility] Comment on above: Performed By: #### C BC #### [facility] [address] [place] [address] Dr. Tyra Poon Erythrocyte distribution width (RBC) [Ratio] 14.6 % Normal 11.0-15.0 [facility] Comment on above: Performed By: #### C BC #### [facility] [address] [place] [address] Dr. Tyra Poon Hematocrit (Bld) [Volume fraction] 34.6 % Critically low 36.0-48.0 [facility] Comment on above: Performed By: #### C BC #### [facility] [address] [place] [address] Dr. Tyra Poon Hemoglobin (Bld) [Mass/Vol] 11.0 g/dL Critically low 12.0-16.0 [facility] Comment on above: Performed By: #### C BC #### [facility] [address] [place] [address] Dr. Tyra Poon IG # 0.28 10e3/ul Critically high 0.00-0.03 [facility] Comment on above: Performed By: #### C BC #### [facility] [address] [place] [address] Dr. Tyra Poon IG % 1.3 % Critically high 0.0-0.5 [facility] Comment on above: Performed By: #### C BC #### [facility] [address] [place] [address] Dr. Tyra Poon LYMPH # 1.9 103/ul Normal 1.2-3.8 [facility] Comment on above: Performed By: #### C BC #### [facility] [address] [place] [address] Dr. Tyra Poon Lymphocytes/100 WBC (Bld) 9.2 % Critically low 20.5-60.0 [facility] Comment on above: Performed By: #### C BC #### [facility] [address] [place] [address] Dr. Tyra Poon MANUAL DIFF REQ NO Normal [facility] Comment on above: Performed By: #### C BC #### [facility] [address] [place] [address] Dr. Tyra Poon MCH (RBC) [Entitic mass] 27.0 pg Normal 26.7-34.0 [facility] Comment on above: Performed By: #### C BC #### [facility] [address] [place] [address] Dr. Tyra Poon MCHC (RBC) [Mass/Vol] 31.8 g/dL Normal 29.9-35.2 [facility] Comment on above: Performed By: #### C BC #### [facility] [address] [place] [address] Dr. Tyra Poon MCV (RBC) [Entitic vol] 84.8 fL Normal 81.0-99.0 [facility] Comment on above: Performed By: #### C BC #### [facility] [address] [place] [address] Dr. Tyra Poon MONO # 1.2 103/ul Critically high 0.3-0.8 [facility] Comment on above: Performed By: #### C BC #### [facility] [address] [place] [address] Dr. Tyra Poon Monocytes/100 WBC (Bld) 5.8 % Normal 1.7-12.0 [facility] Comment on above: Performed By: #### C BC #### [facility] [address] [place] [address] Dr. Tyra Poon NEUT # 17.7 103/ul Critically high 1.4-6.[address] [facility] Comment on above: Performed By: #### C BC #### [facility] [address] [address] [address] Tyra Poon Neutrophils/100 WBC (Bld) 83.5 % Critically high 43.0-75.0 [facility] Comment on above: Performed By: #### C BC #### [facility] [address] [place] [address] Dr. Tyra Poon Platelet mean volume (Bld) [Entitic vol] 9.6 fL Normal 9.5-13.5 [facility] Comment on above: Performed By: #### C BC #### [facility] [address] [place] [address] Dr. Tyra Poon PLT 367 103/ul Normal 150-450 [facility] Comment on above: Performed By: #### C BC #### [facility] [address] [place] [address] Dr. Tyra Poon RBC 4.08 106/ul Critically low 4.20-5.40 [facility] Comment on above: Performed By: #### C BC #### [facility] [address] [place] [address] Dr. Tyra Poon WBC 21.2 103/ul Critically high 4.0-11.0 [facility] Comment on above: Performed By: #### C BC #### [facility] [address] [place] [address] Dr. Tyra Poon CREATININEon 09-12-2022 Creatinine [Mass/Vol] 1.08 mg/dL Critically high 0.55-1.02 [facility] Comment on above: Performed By: #### D DIM #### [facility] [address] [place] [address] Dr. Tyra Poon EGFR-AF BAHAMIAN >60 Normal >=[address] [facility] Comment on above: Performed By: #### D DIM #### [facility] [address] [place] [address] Dr. Tyra Poon EGFR-NON AF BAHAMIAN 55 mL/min/1.73m2 Critically low >=60 [facility] Comment on above: Performed By: #### D DIM #### [facility] [address] [place] [address] Dr. Tyra Poon CBC AUTO DIFFon 09-09-2022 BASO # 0.1 103/ul Normal 0.0-0.1 [facility] Comment on above: Performed By: #### U AMIC #### [facility] [address] [address] [address] Tyra Poon Basophils/100 WBC (Bld) 0.7 % Normal 0.2-2.0 [facility] Comment on above: Performed By: #### U AMIC #### [facility] [address] [address] [address] Tyra Poon EO # 0.2 103/ul Normal 0.0-0.7 [facility] Comment on above: Performed By: #### U AMIC #### [facility] [address] [place] [address] Dr. Tyra Poon Eosinophils/100 WBC (Bld) 2.4 % Normal 0.9-7.0 [facility] Comment on above: Performed By: #### U AMIC #### [facility] [address] [address] [address] Tyra Poon Erythrocyte distribution width (RBC) [Ratio] 14.3 % Normal 11.0-15.0 [facility] Comment on above: Performed By: #### U AMIC #### [facility] [address] [place] [address] Dr. Tyra Poon Hematocrit (Bld) [Volume fraction] 33.3 % Critically low 36.0-48.0 [facility] Comment on above: Performed By: #### U AMIC #### [facility] [address] [place] [address] Dr. Tyra Poon Hemoglobin (Bld) [Mass/Vol] 10.8 g/dL Critically low 12.0-16.0 [facility] Comment on above: Performed By: #### U AMIC #### [facility] [address] [place] [address] Dr. Tyra Poon IG # 0.05 10e3/ul Critically high 0.00-0.03 [facility] Comment on above: Performed By: #### U AMIC #### [facility] [address] [address] [address] Tyra Poon IG % 0.6 % Critically high 0.0-0.5 [facility] Comment on above: Performed By: #### U AMIC #### [facility] [address] [address] [address] Tyra Poon LYMPH # 3.0 103/ul Normal 1.2-3.8 [facility] Comment on above: Performed By: #### U AMIC #### [facility] [address] [address] [address] Tyra Poon Lymphocytes/100 WBC (Bld) 33.4 % Normal 20.5-60.0 [facility] Comment on above: Performed By: #### U AMIC #### [facility] [address] [address] [address] Tyra Poon MANUAL DIFF REQ NO Normal [facility] Comment on above: Performed By: #### U AMIC #### [facility] [address] [address] [address] Tyra Poon MCH (RBC) [Entitic mass] 27.0 pg Normal 26.7-34.0 [facility] Comment on above: Performed By: #### U AMIC #### [facility] [address] [address] [address] Tyra Poon MCHC (RBC) [Mass/Vol] 32.4 g/dL Normal 29.9-35.2 [facility] Comment on above: Performed By: #### U AMIC #### [facility] [address] [address] [address] Tyra Poon MCV (RBC) [Entitic vol] 83.3 fL Normal 81.0-99.0 [facility] Comment on above: Performed By: #### U AMIC #### [facility] [address] [address] [address] Tyra Poon MONO # 0.6 103/ul Normal 0.3-0.8 [facility] Comment on above: Performed By: #### U AMIC #### [facility] [address] [address] [address] Tyra Poon Monocytes/100 WBC (Bld) 6.3 % Normal 1.7-12.0 [facility] Comment on above: Performed By: #### U AMIC #### [facility] [address] [address] [address] Tyra Poon NEUT # 5.0 103/ul Normal 1.4-6.5 [facility] Comment on above: Performed By: #### U AMIC #### [facility] [address] [address] [address] Tyra Poon Neutrophils/100 WBC (Bld) 56.6 % Normal 43.0-75.0 [facility] Comment on above: Performed By: #### U AMIC #### [facility] [address] [place] [address] Dr. Tyra Poon Platelet mean volume (Bld) [Entitic vol] 9.3 fL Critically low 9.5-13.5 [facility] Comment on above: Performed By: #### U AMIC #### [facility] [address] [address] [address] Tyra Poon PLT 310 103/ul Normal 150-450 [facility] Comment on above: Performed By: #### U AMIC #### [facility] [address] [place] [address] Dr. Tyra Poon RBC 4.00 106/ul Critically low 4.20-5.40 [facility] Comment on above: Performed By: #### U AMIC #### [facility] [address] [place] [address] Dr. Tyra Poon WBC 8.9 103/ul Normal 4.0-11.0 [facility] Comment on above: Performed By: #### U AMIC #### [facility] [address] [place] [address] Dr. Tyra Poon PREG QUANT HCGon 09-09-2022 HCG QUANT <1 Normal [facility] Comment on above: Performed By: #### P REGQNT #### [facility] [address] [place] [address] Dr. Tyra Poon HCG RANGE SEE BELOW Normal [facility] Comment on above: Result Comment: 5-50 0.2-1 WEEK 50-500 1-2 WEEKS 100-5,000 2-3 WEEKS 500-10,000 3-4 WEEKS 1,000-50,000 4-5 WEEKS 10,000-100,000 5-6 WEEKS 15,000-200,000 6-8 WEEKS 10,000-100,000 2-3 MONTHS Performed By: #### P REGQNT #### [facility] [address] [place] [address] Dr. Tyra Poon TYPE AND SCREENon 09-09-2022 TYPE AND SCREEN Negative Normal [facility] Comment on above: Performed By: #### P REGQNT #### [facility] [address] [place] [address] Dr. Tyra Poon QUANTIFERON TB GOLD PLUSon 0 07-10-2022 QuantiFERON Criteria Comment Normal [facility] Comment on above: Result Comment: Martínez [...] test. Performed By: #### Q NTTB #### [facility] [address] [place] [address] Dr. Tyra Poon QuantiFERON Incubation Incubation performed. Normal [facility] Comment on above: Performed By: #### Q NTTB #### [facility] [address] [place] [address] Dr. Tyra Poon QuantiFERON Mitogen Value >10.00 Normal [facility] Comment on above: Performed By: #### Q NTTB #### [facility] [address] [place] [address] Dr. Tyra Poon QuantiFERON Nil Value 0.05 IU/mL Normal [facility] Comment on above: Performed By: #### Q NTTB #### [facility] [address] [place] [address] Dr. Tyra Poon QuantiFERON TB1 Ag Value 0.06 IU/mL Normal [facility] Comment on above: Performed By: #### Q NTTB #### [facility] [address] [address] [address] Tyra Poon QuantiFERON TB2 Ag Value 0.07 IU/mL Normal [facility] Comment on above: Performed By: #### Q NTTB #### [facility] [address] [place] [address] Dr. Tyra Poon QuantiFERON-TB Gold Plus Negative Normal Negative [facility] Comment on above: Result Comment: No r esponse to M tuberculosis antigens detected. Infection with M tuberculosis is unlikely, but high risk individuals should be considered for additional testing (ATS/IDSA/CDC Clinical Practice Guidelines, 2017). The reference range is an Antigen minus Nil result of <0.35 IU/mL. Chemiluminescence immunoassay methodology Performed By: #### Q NTTB #### [facility] [address] [place] [address] Dr. Tyra Poon HEPATITIS B SURFACE ANTIBODY , QUANTon 07-09-2022 Hepatitis B Surf AB Quant <3.1 Critically low Immunity>9.9 [facility] Comment on above: Result Comment: Stat us of Immunity Anti-HBs Level Inconsistent with Immunity 0.0 - 9.9 Consistent with Immunity >9.9 Performed By: #### H EPBSRF #### [facility] [address] [place] [address] Dr. Tyra Poon MMR IMMUNITYon 07-09-2022 Mumps Abs, IgG 142.0 AU/mL Normal Immune >10.9 [facility] Comment on above: Result Comment: Nega tive <9.0 Equivocal 9.0 - 10.9 Positive >10.9 A positive result generally indicates past exposure to Mumps virus or previous vaccination. Performed By: #### P REGQNT #### [facility] [address] [place] [address] Dr. Tyra Poon Rubella Antibodies, IgG 11.90 index Normal Immune >0.99 [facility] Comment on above: Result Comment: Non- immune <0.90 Equivocal 0.90 - 0.99 Immune >0.99 Performed By: #### P REGQNT #### [facility] [address] [place] [address] Dr. Tyra Poon Rubeola Ab, IgG 222.0 AU/mL Normal Immune >16.4 [facility] Comment on above: Result Comment: Nega tive <13.5 Equivocal 13.5 - 16.4 Positive >16.4 Presence of antibodies to Rubeola is presumptive evidence of immunity except when acute infection is suspected. Performed By: #### P REGQNT #### [facility] [address] [place] [address] Dr. Tyra Poon VARICELLA IGG ABon 3 Varicella Zoster IgG 3514 index Normal Immune >165 [facility] Comment on above: Result Comment: Nega tive <135 Equivocal 135 - 165 Positive >165 A positive result generally indicates exposure to the pathogen or administration of specific immunoglobulins, but it is not indication of active infection or stage of disease. Performed By: #### U AMIC #### [facility] [address] [place] [address] Dr. Tyra Poon PAP ACOG PANEL 2: 30 to 65on 05-31-2022 . . Normal [facility] Comment on above: Result Comment: Perf ormed at: WB Performed By: #### [id number] #### [facility] [address] [place] [address] Dr. Tyra Poon Age Gdln ACOG Testing 30-65 Normal [facility] Comment on above: Performed By: #### [id number] #### [facility] [address] [place] [address] Dr. Tyra Poon DIAGNOSIS: Comment Normal [facility] Comment on above: Result Comment: NEGA TIVE FOR INTRAEPITHELIAL LESION OR MALIGNANCY. CELLULAR CHANGES ASSOCIATED WITH INFLAMMATION ARE PRESENT. Performed at: WB Performed By: #### [id number] #### [facility] [address] [place] [address] Dr. Tyra Poon HPV Aptima Negative Normal Negative [facility] Comment on above: Result Comment: This nucleic acid amplification test detects fourteen high-risk HPV types (16,18,31,33,35,39,45,51,52,56,58,59,66,68) without differentiation. Performed at: =G Performed By: #### [id number] #### [facility] [address] [place] [address] Dr. Tyra Poon HPV Genotype Reflex Comment Normal [facility] Comment on above: Result Comment: Crit eria not met, HPV Genotype not performed. Performed at: WB Performed By: #### [id number] #### [facility] [address] [place] [address] Dr. Tyra Poon Methodology: Comment Normal [facility] Comment on above: Result Comment: This liquid based ThinPrep(R) pap test was screened with the use of an image guided system. Performed at: WB Performed By: #### [id number] #### [facility] [address] [place] [address] Dr. Tyra Poon Note: Comment Normal [facility] Comment on above: Result Comment: The Pap smear is a screening test designed to aid in the detection of premalignant and malignant conditions of the uterine cervix. It is not a diagnostic procedure and should not be used as the sole means of detecting cervical cancer. Both false-positive and false-negative reports do occur. . Performed at: WB Performed By: #### [id number] #### [facility] [address] [place] [address] Dr. Tyra Poon Performed by: Comment Normal [facility] Comment on above: Result Comment: Sharita Watt [employer] (ASCP) Performed at: WB Performed By: #### [id number] #### [facility] [address] [place] [address] Dr. Tyra Poon Specimen adequacy: Comment Normal [facility] Comment on above: Result Comment: Sati sfactory for evaluation. Endocervical and/or squamous metaplastic cells (endocervical component) are present. Performed at: WB Performed By: #### [id number] #### [facility] [address] [place] [address] Dr. Tyra Poon US PELVIS AND TRANSVAGon [...] TIM PAZ Date: 2022-05-14 09:50 Normal [facility] AMYLASEon 04-30-2022 Amylase [Catalytic activity/Vol] 40 U/L Normal 25-115 [facility] Comment on above: Performed By: #### D DIM #### [facility] [address] [place] [address] Dr. Tyra Poon CBC AUTO DIFFon 04-30-2022 BASO # 0.1 103/ul Normal 0.0-0.1 [facility] Comment on above: Performed By: #### C BC #### [facility] [address] [address] [address] Tyra Poon Basophils/100 WBC (Bld) 1.3 % Normal 0.2-2.0 [facility] Comment on above: Performed By: #### C BC #### [facility] [address] [address] [address] Tyra Poon EO # 0.2 103/ul Normal 0.0-0.7 [facility] Comment on above: Performed By: #### C BC #### [facility] [address] [place] [address] Dr. Tyra Poon Eosinophils/100 WBC (Bld) 2.9 % Normal 0.9-7.0 [facility] Comment on above: Performed By: #### C BC #### [facility] [address] [place] [address] Dr. Tyra Poon Erythrocyte distribution width (RBC) [Ratio] 14.4 % Normal 11.0-15.0 [facility] Comment on above: Performed By: #### C BC #### [facility] [address] [place] [address] Dr. Tyra Poon Hematocrit (Bld) [Volume fraction] 36.8 % Normal 36.0-48.0 [facility] Comment on above: Performed By: #### C BC #### [facility] [address] [place] [address] Dr. Tyra Poon Hemoglobin (Bld) [Mass/Vol] 12.0 g/dL Normal 12.0-16.0 [facility] Comment on above: Performed By: #### C BC #### [facility] [address] [place] [address] Dr. Tyra Poon IG # 0.05 10e3/ul Critically high 0.00-0.03 [facility] Comment on above: Performed By: #### C BC #### [facility] [address] [place] [address] Dr. Tyra Poon IG % 0.6 % Critically high 0.0-0.5 [facility] Comment on above: Performed By: #### C BC #### [facility] [address] [place] [address] Dr. Tyra Poon LYMPH # 3.3 103/ul Normal 1.2-3.8 [facility] Comment on above: Performed By: #### C BC #### [facility] [address] [place] [address] Dr. Tyra Poon Lymphocytes/100 WBC (Bld) 38.9 % Normal 20.5-60.0 [facility] Comment on above: Performed By: #### C BC #### [facility] [address] [place] [address] Dr. Tyra Poon MANUAL DIFF REQ NO Normal [facility] Comment on above: Performed By: #### C BC #### [facility] [address] [place] [address] Dr. Tyra Poon MCH (RBC) [Entitic mass] 27.0 pg Normal 26.7-34.0 [facility] Comment on above: Performed By: #### C BC #### [facility] [address] [place] [address] Dr. Tyra Poon MCHC (RBC) [Mass/Vol] 32.6 g/dL Normal 29.9-35.2 [facility] Comment on above: Performed By: #### C BC #### [facility] [address] [place] [address] Dr. Tyra Poon MCV (RBC) [Entitic vol] 82.9 fL Normal 81.0-99.0 [facility] Comment on above: Performed By: #### C BC #### [facility] [address] [place] [address] Dr. Tyra Poon MONO # 0.6 103/ul Normal 0.3-0.8 [facility] Comment on above: Performed By: #### C BC #### [facility] [address] [place] [address] Dr. Tyra Poon Monocytes/100 WBC (Bld) 6.7 % Normal 1.7-12.0 [facility] Comment on above: Performed By: #### C BC #### [facility] [address] [place] [address] Dr. Tyra Poon NEUT # 4.2 103/ul Normal 1.4-6.5 [facility] Comment on above: Performed By: #### C BC #### [facility] [address] [place] [address] Dr. Tyra Poon Neutrophils/100 WBC (Bld) 49.6 % Normal 43.0-75.0 [facility] Comment on above: Performed By: #### C BC #### [facility] [address] [address] [address] Tyra Poon Platelet mean volume (Bld) [Entitic vol] 9.4 fL Critically low 9.5-13.5 [facility] Comment on above: Performed By: #### C BC #### [facility] [address] [address] [address] Tyra Poon PLT 347 103/ul Normal 150-450 [facility] Comment on above: Performed By: #### C BC #### [facility] [address] [address] [address] Tyra Poon RBC 4.44 106/ul Normal 4.20-5.40 [facility] Comment on above: Performed By: #### C BC #### [facility] [address] [address] [address] Tyra Poon WBC 8.4 103/ul Normal 4.0-11.0 [facility] Comment on above: Performed By: #### C BC #### [facility] [address] [place] [address] ABD/PELVIS WO CONon [...] TIM PAZ Date: 2022-04-30 10:10 Normal [facility] URINE PROFILEon 2 Bilirubin Ql (U) Negative Normal NEGATIVE [facility] Comment on above: Performed By: #### U AMIC #### [facility] [address] [place] [address] Dr. Tyra Poon Clarity (U) CLEAR Normal CLEAR [facility] Comment on above: Performed By: #### U AMIC #### [facility] [address] [place] [address] Dr. Tyra Poon Color (U) YELLOW Normal YELLOW [facility] Comment on above: Performed By: #### U AMIC #### [facility] [address] [address] [address] Tyra Poon ERURAJWINDER A micrscopic examination will be performed if indicated. Normal [facility] Comment on above: Performed By: #### U AMIC #### [facility] [address] [address] [address] Tyra Poon Glucose Ql (U) Negative Normal NEGATIVE [facility] Comment on above: Performed By: #### U AMIC #### [facility] [address] [address] [address] Tyra Poon Hemoglobin Ql (U) Negative Normal NEGATIVE [facility] Comment on above: Performed By: #### U AMIC #### [facility] [address] [address] [address] Tyra Poon Ketones Ql (U) Negative Normal NEGATIVE [facility] Comment on above: Performed By: #### U AMIC #### [facility] [address] [place] [address] Dr. Tyra Poon LEUKOCYTES Negative Normal NEGATIVE [facility] Comment on above: Performed By: #### U AMIC #### [facility] [address] [address] [address] Tyra Poon Nitrite Ql (U) Negative Normal NEGATIVE [facility] Comment on above: Performed By: #### U AMIC #### [facility] [address] [place] [address] Dr. Tyra Poon pH (U) 6.0 [pH] Normal 5-9 [facility] Comment on above: Performed By: #### U AMIC #### [facility] [address] [place] [address] Dr. Tyra Poon SPEC GRAVITY >=1.030 Abnormal 1.005-<=1.025 [facility] Comment on above: Performed By: #### U AMIC #### [facility] [address] [place] [address] Dr. Tyra Poon UA PROTEIN Negative Normal NEGATIVE/ TRACE [facility] Comment on above: Performed By: #### U AMIC #### [facility] [address] [place] [address] Dr. Tyra Poon UR MICRO IND NOT INDICATED Normal [facility] Comment on above: Performed By: #### U AMIC #### [facility] [address] [place] [address] Dr. Tyra Poon Urobilinogen Qn (U) 0.2 {[place]'U}/dL Normal 0.2 - 1. 0 [facility] Comment on above: Performed By: #### U AMIC #### [facility] [address] [place] [address] Dr. Tyra Poon LIPASEon 04-30-2022 Lipase [Catalytic activity/Vol] 83.0 U/L Normal 73.0-393.0 [facility] Comment on above: Performed By: #### D DIM #### [facility] [address] [address] [address] Tyra Poon URon 04-30-2022 , QUAL Negative Normal NEGATIVE [facility] Comment on above: Performed By: #### U AMIC #### [facility] [address] [address] [address] Tyra Poon PROF 14(COMP METB)on 022 Albumin [Mass/Vol] 3.6 g/dL Normal 3.4-5.0 [facility] Comment on above: Performed By: #### D DIM #### [facility] [address] [place] [address] Dr. Tyra Poon Albumin/Globulin [Mass ratio] 0.8 {ratio} Normal [facility] Comment on above: Performed By: #### D DIM #### [facility] [address] [place] [address] Dr. Tyra Poon ALP [Catalytic activity/Vol] 65 U/L Normal 46-116 [facility] Comment on above: Performed By: #### D DIM #### [facility] [address] [place] [address] Dr. Tyra Poon ALT [Catalytic activity/Vol] 13 U/L Critically low 14-59 [facility] Comment on above: Performed By: #### D DIM #### [facility] [address] [place] [address] Dr. Tyra Poon Anion gap [Moles/Vol] 12.5 mmol/L Normal [facility] Comment on above: Performed By: #### D DIM #### [facility] [address] [address] [address] Tyra Poon AST [Catalytic activity/Vol] 12 U/L Critically low 15-37 [facility] Comment on above: Performed By: #### D DIM #### [facility] [address] [place] [address] Dr. Tyra Poon Bilirubin [Mass/Vol] 0.3 mg/dL Normal 0.2-1.0 [facility] Comment on above: Performed By: #### D DIM #### [facility] [address] [address] [address] Tyra Poon Calcium [Mass/Vol] 8.8 mg/dL Normal 8.5-10.1 [facility] Comment on above: Performed By: #### D DIM #### [facility] [address] [address] [address] Tyra Poon Chloride [Moles/Vol] 103 mmol/L Normal 98-107 [facility] Comment on above: Performed By: #### D DIM #### [facility] [address] [address] [address] Tyra Poon CO2 [Moles/Vol] 26.3 mmol/L Normal 21.0-32.0 [facility] Comment on above: Performed By: #### D DIM #### [facility] [address] [address] [address] Tyra Poon Creatinine [Mass/Vol] 0.87 mg/dL Normal 0.55-1.02 [facility] Comment on above: Performed By: #### D DIM #### [facility] [address] [address] [address] Tyra Poon EGFR-AF BAHAMIAN >60 Normal >=60 [facility] Comment on above: Performed By: #### D DIM #### [facility] [address] [address] [address] Tyra Poon EGFR-NON AF BAHAMIAN >60 Normal >=60 [facility] Comment on above: Performed By: #### D DIM #### [facility] [address] [address] [address] Tyra Poon Globulin (S) [Mass/Vol] 4.3 g/dL Normal [facility] Comment on above: Performed By: #### D DIM #### [facility] [address] [place] [address] Dr. Tyra Poon Glucose [Mass/Vol] 120 mg/dL Critically high 74-106 [facility] Comment on above: Performed By: #### D DIM #### [facility] [address] [address] [address] Tyra Poon Potassium [Moles/Vol] 3.8 mmol/L Normal 3.5-5.1 [facility] Comment on above: Performed By: #### D DIM #### [facility] [address] [place] [address] Dr. Tyra Poon Protein [Mass/Vol] 7.9 g/dL Normal 6.4-8.2 [facility] Comment on above: Performed By: #### D DIM #### [facility] [address] [place] [address] Dr. Tyra Poon Sodium [Moles/Vol] 138 mmol/L Normal 136-145 [facility] Comment on above: Performed By: #### D DIM #### [facility] [address] [place] [address] Dr. Tyra Poon Urea nitrogen [Mass/Vol] 11.0 mg/dL Normal 7.0-18.0 [facility] Comment on above: Performed By: #### D DIM #### [facility] [address] [place] [address] Dr. Tyra Poon Urea nitrogen/Creatinine [Mass ratio] 12.6 mg/mg Normal [facility] Comment on above: Performed By: #### D DIM #### [facility] [address] [place] [address] Dr. Tyra Poon CBC AUTO DIFFon 01-12-2022 BASO # 0.1 103/ul Normal 0.0-0.1 [facility] Comment on above: Performed By: #### D DIM #### [facility] [address] [place] [address] Dr. Tyra Poon Basophils/100 WBC (Bld) 0.9 % Normal 0.2-2.0 [facility] Comment on above: Performed By: #### D DIM #### [facility] [address] [place] [address] Dr. Tyra Poon EO # 0.2 103/ul Normal 0.0-0.7 [facility] Comment on above: Performed By: #### D DIM #### [facility] [address] [address] [address] Tyra Poon Eosinophils/100 WBC (Bld) 2.2 % Normal 0.9-7.0 [facility] Comment on above: Performed By: #### D DIM #### [facility] [address] [place] [address] Dr. Tyra Poon Erythrocyte distribution width (RBC) [Ratio] 14.0 % Normal 11.0-15.0 [facility] Comment on above: Performed By: #### D DIM #### [facility] [address] [place] [address] Dr. Tyra Poon Hematocrit (Bld) [Volume fraction] 34.1 % Critically low 36.0-48.0 [facility] Comment on above: Performed By: #### D DIM #### [facility] [address] [place] [address] Dr. Tyra Poon Hemoglobin (Bld) [Mass/Vol] 10.7 g/dL Critically low 12.0-16.0 [facility] Comment on above: Performed By: #### D DIM #### [facility] [address] [place] [address] Dr. Tyra Poon IG # 0.05 10e3/ul Critically high 0.00-0.03 [facility] Comment on above: Performed By: #### D DIM #### [facility] [address] [place] [address] Dr. Tyra Poon IG % 0.6 % Critically high 0.0-0.5 [facility] Comment on above: Performed By: #### D DIM #### [facility] [address] [place] [address] Dr. Tyra Poon LYMPH # 2.6 103/ul Normal 1.2-3.8 [facility] Comment on above: Performed By: #### D DIM #### [facility] [address] [place] [address] Dr. yTra Poon Lymphocytes/100 WBC (Bld) 31.8 % Normal 20.5-60.0 [facility] Comment on above: Performed By: #### D DIM #### [facility] [address] [place] [address] Dr. Tyra Poon MANUAL DIFF REQ NO Normal [facility] Comment on above: Performed By: #### D DIM #### [facility] [address] [place] [address] Dr. Tyra Poon MCH (RBC) [Entitic mass] 26.6 pg Critically low 26.7-34.0 [facility] Comment on above: Performed By: #### D DIM #### [facility] [address] [place] [address] Dr. Tyra Poon MCHC (RBC) [Mass/Vol] 31.4 g/dL Normal 29.9-35.2 [facility] Comment on above: Performed By: #### D DIM #### [facility] [address] [place] [address] Dr. Tyra Poon MCV (RBC) [Entitic vol] 84.8 fL Normal 81.0-99.0 [facility] Comment on above: Performed By: #### D DIM #### [facility] [address] [place] [address] Dr. Tyra Poon MONO # 0.5 103/ul Normal 0.3-0.8 [facility] Comment on above: Performed By: #### D DIM #### [facility] [address] [place] [address] Dr. Tyra Poon Monocytes/100 WBC (Bld) 6.4 % Normal 1.7-12.0 [facility] Comment on above: Performed By: #### D DIM #### [facility] [address] [place] [address] Dr. Tyra Poon NEUT # 4.7 103/ul Normal 1.4-6.5 [facility] Comment on above: Performed By: #### D DIM #### [facility] [address] [place] [address] Dr. Tyra Poon Neutrophils/100 WBC (Bld) 58.1 % Normal 43.0-75.0 [facility] Comment on above: Performed By: #### D DIM #### [facility] [address] [place] [address] Dr. Tyra Poon Platelet mean volume (Bld) [Entitic vol] 9.7 fL Normal 9.5-13.5 [facility] Comment on above: Performed By: #### D DIM #### [facility] [address] [place] [address] Dr. Tyra Poon PLT 318 103/ul Normal 150-450 [facility] Comment on above: Performed By: #### D DIM #### [facility] [address] [place] [address] Dr. Tyra Poon RBC 4.02 106/ul Critically low 4.20-5.40 [facility] Comment on above: Performed By: #### D DIM #### [facility] [address] [place] [address] Dr. Tyra Poon WBC 8.0 103/ul Normal 4.0-11.0 [facility] Comment on above: Performed By: #### D DIM #### [facility] [address] [place] [address] Dr. Tyra Poon FERRITINon 01-12-2022 Ferritin [Mass/Vol] 12.0 ng/mL Normal 6.2-137.0 [facility] Comment on above: Performed By: #### D DIM #### [facility] [address] [place] [address] Dr. Tyra Poon FREE T4on 01-12-2022 Free T4 [Mass/Vol] 1.04 ng/dL Normal 0.76-1.46 [facility] Comment on above: Performed By: #### P REGQNT #### [facility] [address] [place] [address] Dr. Tyra Poon IRONon 01-12-2022 Iron [Mass/Vol] 32.0 ug/dL Critically low 50.0-170.0 [facility] Comment on above: Performed By: #### D DIM #### [facility] [address] [place] [address] Dr. Tyra Poon LIPID PROFILEon 01-12-2022 CHOL-HDL RATIO NORM SEE BELOW Normal [facility] Comment on above: Result Comment: 3.3 - 4.4 LOW RISK 4.4 - 7.1 AVERAGE RISK 7.1 - 11.0 MODERATE RISK >11.0 HIGH RISK Performed By: #### U AMIC #### [facility] [address] [address] [address] Tyra Poon Cholesterol [Mass/Vol] 236 mg/dL Critically high <=200 [facility] Comment on above: Performed By: #### U AMIC #### [facility] [address] [address] [address] Tyra Poon Cholesterol in HDL [Mass/Vol] 65 mg/dL Critically high 40-60 [facility] Comment on above: Performed By: #### U AMIC #### [facility] [address] [address] [address] Tyra Poon Cholesterol in LDL [Mass/Vol] 149.8 mg/dL Normal [facility] Comment on above: Performed By: #### U AMIC #### [facility] [address] [address] [address] Tyra Poon Cholesterol.total/C holesterol in HDL [Mass ratio] 3.6 {ratio} Normal [facility] Comment on above: Performed By: #### U AMIC #### [facility] [address] [address] [address] Tyra Poon HDL NORMAL > or = 60 mg/dl - LO W CARDIOVASCULAR RISK <40 mg/dl - HIGH CARDIOVASCULAR RISK Normal [facility] Comment on above: Performed By: #### U AMIC #### [facility] [address] [address] [address] Tyra Poon LDL CALC NORMAL SEE BELOW Normal [facility] Comment on above: Result Comment: <100 mg/dl OPTIMAL 100 - 129 mg/dl NEAR OR ABOVE OPTIMAL 130 - 159 mg/dl BORDERLINE HIGH 160 - 189 mg/dl HIGH >190 mg/dl VERY HIGH Performed By: #### U AMIC #### [facility] [address] [address] [address] Tyra Poon Triglyceride [Mass/Vol] 106 mg/dL Normal <=150 [facility] Comment on above: Performed By: #### U AMIC #### [facility] [address] [address] [address] Tyra Poon VLDL CALC 21.2 mg/dL Normal [facility] Comment on above: Performed By: #### U AMIC #### [facility] [address] [address] [address] Tyra Poon PROF 14(COMP METB)on 022 Albumin [Mass/Vol] 3.4 g/dL Normal 3.4-5.0 [facility] Comment on above: Performed By: #### U AMIC #### [facility] [address] [address] [address] Tyra Poon Albumin/Globulin [Mass ratio] 0.8 {ratio} Normal [facility] Comment on above: Performed By: #### U AMIC #### [facility] [address] [place] [address] Dr. Tyra Poon ALP [Catalytic activity/Vol] 63 U/L Normal 46-116 [facility] Comment on above: Performed By: #### U AMIC #### [facility] [address] [address] [address] Tyra Poon ALT [Catalytic activity/Vol] 24 U/L Normal 14-59 [facility] Comment on above: Performed By: #### U AMIC #### [facility] [address] [place] [address] Dr. Tyra Poon Anion gap [Moles/Vol] 10.4 mmol/L Normal [facility] Comment on above: Performed By: #### U AMIC #### [facility] [address] [address] [address] Tyra Poon AST [Catalytic activity/Vol] 14 U/L Critically low 15-37 [facility] Comment on above: Performed By: #### U AMIC #### [facility] [address] [address] [address] Tyra Poon Bilirubin [Mass/Vol] 0.3 mg/dL Normal 0.2-1.0 [facility] Comment on above: Performed By: #### U AMIC #### [facility] [address] [address] [address] Tyra Poon Calcium [Mass/Vol] 8.7 mg/dL Normal 8.5-10.1 [facility] Comment on above: Performed By: #### U AMIC #### [facility] [address] [place] [address] Dr. Tyra Poon Chloride [Moles/Vol] 101 mmol/L Normal 98-107 [facility] Comment on above: Performed By: #### U AMIC #### [facility] [address] [place] [address] Dr. Tyra oPon CO2 [Moles/Vol] 29.8 mmol/L Normal 21.0-32.0 [facility] Comment on above: Performed By: #### U AMIC #### [facility] [address] [place] [address] Dr. Tyra Poon Creatinine [Mass/Vol] 0.89 mg/dL Normal 0.55-1.02 [facility] Comment on above: Performed By: #### U AMIC #### [facility] [address] [place] [address] Dr. Tyra Poon EGFR-AF BAHAMIAN >60 Normal >=60 [facility] Comment on above: Performed By: #### U AMIC #### [facility] [address] [place] [address] Dr. Tyra Poon EGFR-NON AF BAHAMIAN >60 Normal >=60 [facility] Comment on above: Performed By: #### U AMIC #### [facility] [address] [place] [address] Dr. Tyra Poon Globulin (S) [Mass/Vol] 4.3 g/dL Normal [facility] Comment on above: Performed By: #### U AMIC #### [facility] [address] [place] [address] Dr. Tyra Poon Glucose [Mass/Vol] 107 mg/dL Critically high 74-106 [facility] Comment on above: Performed By: #### U AMIC #### [facility] [address] [place] [address] Dr. Tyra Poon Potassium [Moles/Vol] 4.2 mmol/L Normal 3.5-5.1 [facility] Comment on above: Performed By: #### U AMIC #### [facility] [address] [address] [address] Tyra Poon Protein [Mass/Vol] 7.7 g/dL Normal 6.4-8.2 [facility] Comment on above: Performed By: #### U AMIC #### [facility] [address] [address] [address] Tyra Poon Sodium [Moles/Vol] 137 mmol/L Normal 136-145 [facility] Comment on above: Performed By: #### U AMIC #### [facility] [address] [address] [address] Tyra Poon Urea nitrogen [Mass/Vol] 15.0 mg/dL Normal 7.0-18.0 [facility] Comment on above: Performed By: #### U AMIC #### [facility] [address] [address] [address] Tyra Poon Urea nitrogen/Creatinine [Mass ratio] 16.9 mg/mg Normal [facility] Comment on above: Performed By: #### U AMIC #### [facility] [address] [place] [address] Dr. Tyra Poon TSHon 01-12-2022 TSH 2.550 uIU/mL Normal 0.358-3.740 [facility] Comment on above: Performed By: #### U AMIC #### [facility] [address] [address] [address] Tyra Poon UA RANDOM W/MICROSCOPICon BACTERIA NONE SEEN Normal NONE SEEN [facility] Comment on above: Performed By: #### U AMIC #### [facility] [address] [place] [address] Dr. Tyra Poon Bilirubin Ql (U) Negative Normal NEGATIVE [facility] Comment on above: Performed By: #### U AMIC #### [facility] [address] [place] [address] Dr. Tyra Poon CAST NONE SEEN Normal NONE SEEN [facility] Comment on above: Performed By: #### U AMIC #### [facility] [address] [address] [address] Tyra Poon Clarity (U) CLEAR Normal CLEAR [facility] Comment on above: Performed By: #### U AMIC #### [facility] [address] [address] [address] Tyra Poon Color (U) YELLOW Normal YELLOW [facility] Comment on above: Performed By: #### U AMIC #### [facility] [address] [address] [address] Tyra Poon Crystals LM Nom (Urine sed) NONE SEEN Normal NONE SEEN [facility] Comment on above: Performed By: #### U AMIC #### [facility] [address] [place] [address] Dr. Tyra Poon Epithelial cells LM Ql (Urine sed) RARE Normal NONE SEEN /RARE [facility] Comment on above: Performed By: #### U AMIC #### [facility] [address] [place] [address] Dr. Tyra Poon Glucose Ql (U) Negative Normal NEGATIVE [facility] Comment on above: Performed By: #### U AMIC #### [facility] [address] [address] [address] Tyra Poon Hemoglobin Ql (U) MODERATE Abnormal NEGATIVE [facility] Comment on above: Performed By: #### U AMIC #### [facility] [address] [address] [address] Tyra Poon Ketones Ql (U) Negative Normal NEGATIVE [facility] Comment on above: Performed By: #### U AMIC #### [facility] [address] [address] [address] yTra Poon LEUKOCYTES Negative Normal NEGATIVE [facility] Comment on above: Performed By: #### U AMIC #### [facility] [address] [place] [address] Dr. Tyra Poon MUCOUS NONE SEEN Normal NONE SEEN [facility] Comment on above: Performed By: #### U AMIC #### [facility] [address] [place] [address] Dr. Tyra Poon Nitrite Ql (U) Negative Normal NEGATIVE [facility] Comment on above: Performed By: #### U AMIC #### [facility] [address] [place] [address] Dr. Tyra Poon pH (U) 6.0 [pH] Normal 5-9 [facility] Comment on above: Performed By: #### U AMIC #### [facility] [address] [place] [address] Dr. Tyra Poon RBC 0-2 Normal 0-2 [facility] Comment on above: Performed By: #### U AMIC #### [facility] [address] [place] [address] Dr. Tyra Poon SPEC GRAVITY 1.025 Normal 1.005-<=1.025 [facility] Comment on above: Performed By: #### U AMIC #### [facility] [address] [place] [address] Dr. Tyra Poon UA PROTEIN Negative Normal NEGATIVE/ TRACE [facility] Comment on above: Performed By: #### U AMIC #### [facility] [address] [place] [address] Dr. Tyra Poon Urobilinogen Qn (U) 0.2 {Phoenix'U}/dL Normal 0.2 - 1. 0 [facility] Comment on above: Performed By: #### U AMIC #### [facility] [address] [place] [address] Dr. Tyra Poon WBC NONE SEEN Normal NONE SEEN [facility] Comment on above: Performed By: #### U AMIC #### [facility] [address] [place] [address] Dr. Tyra Poon Vital Signs Date Time Vital Sign Value Performing Clinician Faci lity 09-20-2024 13:03-0400 Body mass index (BMI) [Ratio] 47.9 kg/m2 [employer] Work Phone: [facility] 09-20-2024 13:03-0400 Body weight 122.65 kg [employer] DO Work Phone: [facility] 09-20-2024 13:03-0400 Diastolic blood pressure 78 mm[Hg] Honorio Acosta DO Work Phone: [facility] 09-20-2024 13:03-0400 Systolic blood pressure 120 mm[Hg] Honorio Acosta DO Work Phone: [facility] 08-30-2024 13:41-0500 Body mass index (BMI) [Ratio] 48.61 kg/m2 Aida Anastacio OPERATING ROOM SURGICAL TECHNOLOGIST Work Phone: [facility] 08-30-2024 13:41-0500 Body temperature 98.8 [degF] Aidaallison Chaves OPERATING ROOM SURGICAL TECHNOLOGIST Work Phone: [facility] 08-30-2024 13:41-0500 Body weight 124.47 kg Aida Chaves OPERATING ROOM SURGICAL TECHNOLOGIST Work Phone: [facility] 08-30-2024 13:41-0500 Diastolic blood pressure 84 mm[Hg] Aida Chaves OPERATING ROOM SURGICAL TECHNOLOGIST Work Phone: [facility] 08-30-2024 13:41-0500 Heart rate 96 /min Aidaallison Chaves OPERATING ROOM SURGICAL TECHNOLOGIST Work Phone: [facility] 08-30-2024 13:41-0500 SaO2% (BldA) [Mass fraction] 97 % Aidaallison Chaves OPERATING ROOM SURGICAL TECHNOLOGIST Work Phone: [facility] 08-30-2024 13:41-0500 Systolic blood pressure 122 mm[Hg] Aida Anastacio OPERATING ROOM SURGICAL TECHNOLOGIST Work Phone: [facility] 04-03-2024 15:48-0400 Body height 160 cm Aidaallison Chaves OPERATING ROOM SURGICAL TECHNOLOGIST Work Phone: [facility] 04-03-2024 15:48-0400 Body mass index (BMI) [Ratio] 52.33 kg/m2 Aidaallison Chaves OPERATING ROOM SURGICAL TECHNOLOGIST Work Phone: [facility] 04-03-2024 15:48-0400 Body temperature 97.81 [degF] Aida Chaves OPERATING ROOM SURGICAL TECHNOLOGIST Work Phone: [facility] 04-03-2024 15:48-0400 Body weight 133.99 kg Aida Aichholz OPERATING ROOM SURGICAL TECHNOLOGIST Work Phone: [facility] 04-03-2024 15:48-0400 Diastolic blood pressure 86 mm[Hg] Aida Aichholz OPERATING ROOM SURGICAL TECHNOLOGIST Work Phone: [facility] 04-03-2024 15:48-0400 Heart rate 89 /min Aida Aichholz OPERATING ROOM SURGICAL TECHNOLOGIST Work Phone: [facility] 04-03-2024 15:48-0400 Respiratory rate 18 /min Aida Aichholz OPERATING ROOM SURGICAL TECHNOLOGIST Work Phone: [facility] 04-03-2024 15:48-0400 SaO2% (BldA) [Mass fraction] 99 % Aida Aichholz OPERATING ROOM SURGICAL TECHNOLOGIST Work Phone: [facility] 04-03-2024 15:48-0400 Systolic blood pressure 126 mm[Hg] Aida Aichholz OPERATING ROOM SURGICAL TECHNOLOGIST Work Phone: [facility] 02-21-2024 15:02-0400 Body height 160 cm Aida Aichholz OPERATING ROOM SURGICAL TECHNOLOGIST Work Phone: [facility] 02-21-2024 15:02-0400 Body mass index (BMI) [Ratio] 52.08 kg/m2 Aida Aichholz OPERATING ROOM SURGICAL TECHNOLOGIST Work Phone: [facility] 02-21-2024 15:02-0400 Body temperature 98.8 [degF] Aida Aichholz OPERATING ROOM SURGICAL TECHNOLOGIST Work Phone: [facility] 02-21-2024 15:02-0400 Body weight 133.36 kg Aida Aichholz OPERATING ROOM SURGICAL TECHNOLOGIST Work Phone: [facility] 02-21-2024 15:02-0400 Diastolic blood pressure 88 mm[Hg] Aida Aichholz OPERATING ROOM SURGICAL TECHNOLOGIST Work Phone: [facility] 02-21-2024 15:02-0400 Heart rate 79 /min Aida Aichholz OPERATING ROOM SURGICAL TECHNOLOGIST Work Phone: [facility] 02-21-2024 15:02-0400 Respiratory rate 18 /min Aida Anastacio OPERATING ROOM SURGICAL TECHNOLOGIST Work Phone: [facility] 02-21-2024 15:02-0400 SaO2% (BldA) [Mass fraction] 99 % Aida Anastacio OPERATING ROOM SURGICAL TECHNOLOGIST Work Phone: [facility] 02-21-2024 15:02-0400 Systolic blood pressure 124 mm[Hg] Aida Anastacio OPERATING ROOM SURGICAL TECHNOLOGIST Work Phone: [facility] Encounters Encounter Date Encounter Type Care Provider Facility Start: 01-19-2025 End: 01-19-2025 Telephone encounter Jef Wooten MD Work Phone: [facility] Start: 11-30-2024 End: 11-30-2024 Refill Aida Anastacio OPERATING ROOM SURGICAL TECHNOLOGIST Work Phone: [facility] Comment on above: Mucocele of mouth (P rimary Dx) Start: 11-02-2024 End: 11-02-2024 Refill Aida Anastacio OPERATING ROOM SURGICAL TECHNOLOGIST Work Phone: [facility] Comment on above: Breast abscess (Prim sanjiv Dx) Start: 09-20-2024 End: 09-20-2024 Patient encounter procedure Honorio Acosta DO Work Phone: [facility] Work Phone: Start: 09-20-2024 End: 09-20-2024 Periodic preventive med est patient 40-64yrs Honorio Acosta DO Work Phone: [facility] Comment on above: Well woman exam with routine gynecological exam; Breast cancer screening by mammogram Start: 09-20-2024 End: 09-20-2024 ambulatory HONORIO ACOSTA Not Available Start: 09-19-2024 End: 09-19-2024 ambulatory SANDIE PRIETO Not Available Start: 08-30-2024 End: 08-30-2024 Bamboo flowsheet Aida Chaves OPERATING ROOM SURGICAL TECHNOLOGIST Work Phone: [facility] Start: 08-30-2024 End: 08-30-2024 Bamboo flowsheet Aida Chaves OPERATING ROOM SURGICAL TECHNOLOGIST Work Phone: [facility] Start: 08-30-2024 End: 08-30-2024 ambulatory AIDA CHAVES Not Available Start: 08-30-2024 End: 08-30-2024 Office outpatient visit 25 minutes Aida Chaves OPERATING ROOM SURGICAL TECHNOLOGIST Work Phone: [facility] Comment on [...] 08-27-2024 End: 08-27-2024 Telephone encounter Aida Chaves OPERATING ROOM SURGICAL TECHNOLOGIST Work Phone: [facility] Start: 08-26-2024 End: 08-27-2024 Refill Aida Waynez OPERATING ROOM SURGICAL TECHNOLOGIST Work Phone: [facility] Comment on above: Gastro-esophageal re flux disease without esophagitis Start: 07-20-2024 End: 07-20-2024 Refill Aida Anastacio OPERATING ROOM SURGICAL TECHNOLOGIST Work Phone: [facility] Comment on above: Dental infection (Pr imary Dx) Start: 07-03-2024 End: 07-03-2024 Telephone encounter Jef Wooten MD Work Phone: [facility] Start: 06-26-2024 End: 06-26-2024 Refill Aida Waynez OPERATING ROOM SURGICAL TECHNOLOGIST Work Phone: [facility] Comment on above: Pre-diabetes Start: 06-21-2024 End: 06-21-2024 Refill Aida Aichholz OPERATING ROOM SURGICAL TECHNOLOGIST Work Phone: [facility] Comment on above: Pre-diabetes Start: 04-25-2024 End: 04-25-2024 Refill Aida Chaves OPERATING ROOM SURGICAL TECHNOLOGIST Work Phone: [facility] Comment on above: Nausea (Primary Dx) Start: 04-03-2024 End: 04-03-2024 Office outpatient visit 25 minutes Aida Chaves NP Work Phone: [facility] Comment on above: MARCK (obstructive sle ep apnea) (Primary Dx); Primary hypertension ([facility]); Edema, lower extremity; BMI 50.0-59.9, adult ([facility]); Anxiety and depression ([facility]); Essential (primary) hypertension ([facility]); Essential hypertension ([facility]); Anxiety disorder, unspecified; Anxiety state ([facility]); Gastro-esophageal reflux disease without esophagitis; Insomnia, unspecified Start: 04-03-2024 End: 04-03-2024 Orders Only Aida Chaves OPERATING ROOM SURGICAL TECHNOLOGIST Work Phone: [facility] Comment on above: Pre-diabetes (Primar y Dx) Start: 03-13-2024 End: 03-13-2024 Refill Aida Chaves OPERATING ROOM SURGICAL TECHNOLOGIST Work Phone: [facility] Comment on above: Pre-diabetes (Primar y Dx); BMI 50.0-59.9, adult ([facility]); Metabolic syndrome Start: 02-25-2024 End: 02-25-2024 Orders Only Jef Wooten MD Work Phone: [facility] Comment on above: Anal or rectal pain (Primary Dx) Start: 02-23-2024 End: 02-23-2024 Bamboo flowsheet YouNoodle DO Work Phone: [facility] Start: 02-23-2024 End: 02-23-2024 Bamboo flowsheet Jonatan Luis DO Work Phone: [facility] Start: 02-23-2024 End: 02-23-2024 Office outpatient new 30 minutes Jonatan Penalozaett DO Work Phone: [facility] Comment on above: Encounter for diagno stic colonoscopy due to change in bowel habits (Primary Dx); Hemorrhoids, unspecified hemorrhoid type Start: 02-23-2024 End: 02-23-2024 ambulatory JONATAN SMITH Not Available Start: 02-21-2024 End: 02-21-2024 Office outpatient visit 15 minutes Aida Aichholz OPERATING ROOM SURGICAL TECHNOLOGIST Work Phone: [facility] Comment on above: Anal or rectal pain (Primary Dx); BMI 50.0-59.9, adult ([facility]); Chronic rectal pain Start: 02-21-2024 End: 02-21-2024 ambulatory AIDA AICHHOLZ Not Available Start: 02-21-2024 End: 02-21-2024 Bamboo flowsheet Aida Aichholz OPERATING ROOM SURGICAL TECHNOLOGIST Work Phone: [facility] Start: 02-21-2024 End: 02-21-2024 Bamboo flowsheet Aida Aichholz OPERATING ROOM SURGICAL TECHNOLOGIST Work Phone: [facility] Start: 12-29-2023 End: 12-29-2023 ambulatory AIDA AICHHOLZ Not Available Start: 11-04-2023 End: 11-04-2023 ambulatory AIDA AICHHOLZ Not Available Start: 11-27-2022 End: 11-28-2022 ambulatory LOKIE DRIVER AIDA AICHHOLZ Facility:[facility] Start: 11-17-2022 End: 11-18-2022 ambulatory LOKIE DRIVER AIDA AICHHOLZ Facility:[facility] Start: 09-12-2022 Encounter for preprocedural laboratory examination DR HONORIO SHANE . [facility] Start: 09-11-2022 End: 09-12-2022 ambulatory LOKIE DRIVER AIDA AICHHOLZ Facility:[facility] Start: 09-09-2022 End: 09-10-2022 ambulatory LOKIE DRIVER AIDA AICHHOLZ Facility:[facility] Start: 09-09-2022 End: 09-10-2022 Encounter for preprocedural laboratory examination LOKIE DRIVER AIDA AICHHOLZ Facility:[facility] Start: 09-02-2022 Encounter for preprocedural cardiovascular examination DR HONORIO SHANE . [facility] Start: 08-28-2022 End: 08-29-2022 ambulatory EVANGELINA CHAVES Facility:[facility] Start: 08-28-2022 End: 08-29-2022 Encounter for preprocedural cardiovascular examination EVANGELINA CHAVES Facility:[facility] Start: 07-08-2022 End: 07-09-2022 ambulatory EVANGELINA CHAVES Facility:[facility] Start: 05-21-2022 End: 05-21-2022 ambulatory EVANGELINA CHAVES Facility:[facility] Start: 05-13-2022 End: 05-14-2022 ambulatory EVANGELINA CHAVES Facility:[facility] Start: 04-30-2022 End: 04-30-2022 ambulatory LU HANKS . Facility:[facility] Start: 01-12-2022 End: 01-13-2022 ambulatory EVANGELINA CHAVES Facility:[facility] Procedures Date Procedure Procedure Detail Performing Clinician Start: 08-30-2024 Hemoglobin glycosyla lexy a1c Aida Chaves OPERATING ROOM SURGICAL TECHNOLOGIST Work Phone: Start: 02-29-2024 Colonoscopy Aida Hannah olcarolyn OPERATING ROOM SURGICAL TECHNOLOGIST Work Phone: Start: 11-15-2023 Mammography Aida Young olcarolyn OPERATING ROOM SURGICAL TECHNOLOGIST Work Phone: Start: 09-15-2023 Cytp cerv/vag auto t hin layer prep mnl screen Honorio Shane DO Work Phone: Plan of Treatment Date Care Activity Detail Author Start: 02-28-2034 Screening for malign ant neoplasm of colon [facility] Start: 09-26-2025 End: 09-26-2025 Patient encounter procedure 09/26/2025 1:00 PM EDT Office Visit [facility] [address] [place] [place] [id number] Honorio Shane, DO [address] [place] [address] [facility] Start: 06-17-2025 Screening for malign ant neoplasm of cervix [facility] Start: 05-04-2025 Influenza vaccination Influenza Vacc ine (#1) [facility] Comment on above: Postponed from 03/05 (Patient Does Not Have Time) Start: 03-05-2025 Influenza vaccination Influenza Vacc ine (#1) [facility] Start: 01-29-2025 End: 01-29-2025 Patient encounter procedure 01/29/2025 4:00 PM EDT Office Visit [facility] [address] [place] [address] Aida Chaves, OPERATING ROOM SURGICAL TECHNOLOGIST [address] [place] [address] [facility] Start: 11-14-2024 Screening for malign ant neoplasm of breast Mammogram [facility] Start: 09-20-2024 End: 11-20-2025 MG Breast - bilateral Screening Bilateral screening mammogram Imaging Routine Breast cancer screening by mammogram Expected: 09/20/2024 (Approximate), Expires: 11/20/2025 [facility] Work Phone: Comment on above: Expected: 09/20/2024 (Approximate), Expires: 11/20/2025 Start: 09-20-2024 End: 09-20-2024 Patient encounter procedure 09/20/2024 1:00 PM EDT Office Visit [facility] [address] [address] Honorio Shane, DO [address] [facility] [address], [address] [address] [facility] Start: 08-30-2024 End: 08-30-2025 CBC W Auto Differential panel - Blood CBC and differential Lab Routine Gastroesophageal reflux disease, unspecified whether esophagitis present Expected: 08/30/2024 (Approximate), Expires: 08/30/2025 [facility] Work Phone: Comment on above: Expected: 08/30/2024 (Approximate), Expires: 08/30/2025 Start: 08-30-2024 End: 08-30-2025 Comprehensive metabolic 2000 panel - Serum or Plasma Comprehensive metabolic panel Lab Routine Morbid (severe) obesity due to excess calories (CMS/HCC) Primary hypertension (CMS/HCC) Gastroesophageal reflux disease, unspecified whether esophagitis present Edema, lower extremity Pre-diabetes Metabolic syndrome Mixed hyperlipidemia (CMS/HCC) Expected: 08/30/2024 (Approximate), Expires: 08/30/2025 [facility] Comment on above: Expected: 08/30/2024 (Approximate), Expires: 08/30/2025 Start: 08-30-2024 End: 08-30-2025 Lipid 1996 panel - Serum or Plasma Lipid panel Lab Routine Pre-diabetes Mixed hyperlipidemia (CMS/HCC) Expected: 08/30/2024 (Approximate), Expires: 08/30/2025 [facility] Comment on above: Expected: 08/30/2024 (Approximate), Expires: 08/30/2025 Start: 08-30-2024 End: 08-30-2025 Microalbumin/Creatinine panel in random Urine Microalbumin / creatinine, urine ratio Lab Routine Primary hypertension (CMS/HCC) Pre-diabetes Expected: 08/30/2024 (Approximate), Expires: 08/30/2025 [facility] Comment on above: Expected: 08/30/2024 (Approximate), Expires: 08/30/2025 Start: 08-30-2024 End: 08-30-2025 Thyrotropin [Units/volume] in Serum or Plasma TSH Lab Routine Anxiety and depression (CMS/HCC) Expected: 08/30/2024 (Approximate), Expires: 08/30/2025 [facility] Comment on above: Expected: 08/30/2024 (Approximate), Expires: 08/30/2025 Start: 08-30-2024 End: 08-30-2025 Urinalysis complete panel - Urine Urinalysis with reflex microscopic (clean catch) Lab Routine Primary hypertension (CMS/HCC) Pre-diabetes Expected: 08/30/2024 (Approximate), Expires: 08/30/2025 [facility] Comment on above: Expected: 08/30/2024 (Approximate), Expires: 08/30/2025 Start: 04-03-2024 End: 04-03-2024 Patient encounter procedure 04/03/2024 3:40 PM EDT Office Visit [facility] [address] [place] [phone] Aida Chaves NP [address] [place] [address] [facility] Start: 04-03-2024 End: 04-03-2025 Basic metabolic 1998 panel - Serum or Plasma Basic metabolic panel Lab Routine Pre-diabetes Expected: 04/03/2024 (Approximate), Expires: 04/03/2025 [facility] Work Phone: Comment on above: Expected: 04/03/2024 (Approximate), Expires: 04/03/2025 Start: 04-03-2024 End: 04-03-2025 Hemoglobin A1c/Hemoglobin.total in Blood Hemoglobin A1c Lab Routine Pre-diabetes Expected: 04/03/2024 (Approximate), Expires: 04/03/2025 [facility] Comment on above: Expected: 04/03/2024 (Approximate), Expires: 04/03/2025 Start: 03-05-2024 Influenza vaccination Influenza Vacc ine (#1) [facility] Start: 02-29-2024 End: 02-29-2024 Patient encounter procedure 02/29/2024 10:00 AM EDT Procedure Visit [facility] LuisJonatan, [address] [place] [address] [facility] Start: 02-23-2024 End: 02-23-2024 Patient encounter procedure 02/23/2024 11:00 AM EDT Office Visit [facility] [address] [place] [id number] [facility] [address] [place] [address] Arrived [facility] Comment on above: Arrived Start: 02-21-2024 End: 02-21-2024 Patient encounter procedure 02/21/2024 3:00 PM EDT Office Visit [facility] [address] [place] [address] Aida Chaves NP [address] [place] [address] Arrived [facility] Comment on above: Arrived Start: 2000 Screening for malign ant neoplasm of cervix Pap Smear [facility] Start: 1979 Screening for malign ant neoplasm of colon [facility] THIN PREP TIS PAP AN D HR HPV DNA THIN PREP TIS PAP AND HR HPV DNA Pathology and Cytology Routine Well woman exam with routine gynecological exam Ordered: 09/20/2024 [facility] Comment on above: Ordered: 09/20/2024 Immunizations Immunization Date Immunization Notes Care Provider Fa cility 05-04-2024 influenza, seasonal, injectable Aida Chaves OPERATING ROOM SURGICAL TECHNOLOGIST Work Phone: [facility] 05-04-2024 influenza virus vacc ine, unspecified formulation Jef Wooten MD Work Phone: [facility] 04-27-2023 tetanus and diphther ia toxoids, adsorbed, preservative free, for adult use (5 Lf of tetanus toxoid and 2 Lf of diphtheria toxoid) Aida Chaves OPERATING ROOM SURGICAL TECHNOLOGIST Work Phone: [facility] 04-15-2022 influenza, seasonal, injectable Aida Chaves OPERATING ROOM SURGICAL TECHNOLOGIST Work Phone: [facility] 04-15-2022 influenza virus vacc ine, unspecified formulation Aida Chaves OPERATING ROOM SURGICAL TECHNOLOGIST Work Phone: [facility] 10-15-2012 tetanus and diphther ia toxoids, adsorbed, preservative free, for adult use (5 Lf of tetanus toxoid and 2 Lf of diphtheria toxoid) Aida Chaves OPERATING ROOM SURGICAL TECHNOLOGIST Work Phone: [facility] Payers Date Payer Category Payer Private Health Insurance [employer] [facility] [facility] [id number] [employer] [id number] 2022-Present [phone] [address] [place] [address] [id number] 2022 Unknown [id number] 2022 Unknown [id number] 1979 Unknown [id number] 2.16.840.1.874688.3.579 .2.593 1979 Unknown [id number] 2.16.840.1.954411.3.579 .2.593 1979 Unknown [id number] 2.16.840.1.255133.3.579 .2.593 1979 Unknown [id number] 2.16.840.1.504875.3.579 .2.593 1979 Unknown [id number] 2.16.840.1.962319.3.579 .2.593 1979 Unknown [id number] 2.16.840.1.692411.3.579 .2.593 1979 Unknown [id number] 2.16.840.1.033291.3.579 .2.593 1979 Unknown [id number] 2.16.840.1.775045.3.579 .2.593 1979 Unknown [id number] 2.16.840.1.026345.3.579 .2.593 1979 Unknown [id number] 2.16.840.1.210247.3.579 .2.593 1979 Unknown [id number] 2.16.840.1.534989.3.579 .2.9 1979 Unknown [id number] 2.16.840.1.389927.3.579 .2.1258 1979 Unknown [id number] 2.16.840.1.263294.3.579 .2.1258 1979 Unknown [id number] 2.16.840.1.681119.3.579 .2.9 1979 Unknown [id number] 2.16.840.1.813456.3.579 .2.9 1979 Unknown [id number] 2.16.840.1.509160.3.579 .2.9 1979 Unknown [id number] 2.16.840.1.343043.3.579 .2.9 1980 Unknown [id number] 1960 Private Health Insurance [id number] 1960 Self-pay Unknown [id number] Social History Date Type Detail Facility Start: 01-13-2023 Tobacco smoking status [facility] Never sm oked tobacco [facility] Start: 01-13-2023 Tobacco use and exposure Smoke less tobacco non-user [facility] Start: 04-03-2024 End: 09-20-2024 Alcoholic beverage intake Lifetime non-drinker (finding) [facility] Start: 08-01-2023 End: 08-02-2023 [facility] of [facility] Start: 08-01-2023 End: 08-02-2023 Humiliation, Afraid, Rape, and Kick questionnaire [HARK] [...] To some extent [facility] (I/We) worried [facility] (my/our) food would run out before (I/we) got money to buy more. Never true [facility] Start: 1980 Sex assigned at Not on file N [facility] Clinical Notes 09-11-2022 to 01-19-2025 Telephone Encounter - Jef Wooten MD - 01/19/2025 12:31 PM EDTTelephone Encounter - Jef Wooten MD - 01/19/2025 12:31 PM EDTTelephone Encounter - Christa Smith - 01/19/2025 11:54 AM EDT Note Date & Type Note Facility 01-19-2025 Telephone encount er Note Sent [facility] 01-19-2025 Miscellaneous Notes Formattin g of this note might be different from the original. Sent Patient would like an order for z pack sent to [employer]. an documented in this encounter [facility] 01-19-2025 Telephone encount er Note Patient would like an order for z pack sent to [employer]. an [facility] 11-30-2024 History of Presen t illness Narrative Associated Problem(s): Mucocele of mouth New dentures in the last 3 months, has a lump to lower gum line, very tender, increasing jaw pain, and called denist, cannot get in until: 12/12/24 I examined the area, it looks to be more of a mucocele, no purulent drainage noted Will cover with atb documented in this encounter [facility] 11-02-2024 History of Presen t illness Narrative Associated Problem(s): Breast abscess Right breast, recurrent, gets drainage out, no fever, chills, documented in this encounter [facility] 11-02-2024 Telephone encount er Note Warm compress, alert provider if not better or resolved with this [facility] 11-02-2024 Miscellaneous Notes Formattin g of this note might be different from the original. Warm compress, alert provider if not better or resolved with this documented in this encounter [facility] 09-20-2024 History of Presen t illness Narrative Reason for Appointment: Patient ID: Chaparrita Roca is a 44 y.o. female who presents for Well Women Visit Patient presents today for Annual Exam. MEDICATIONS Current Outpatient Medications Medication Instructions amLODIPine (NORVASC) 10 mg, Oral, Daily buPROPion [...] no more than 4 pills per week ALLERGIES Allergies Allergen Reactions Bee Venom Other Reaction(s): Unknown Flagyl [Metronidazole] Other and GI intolerance Skin bright red felt like on fire Penicillin G Other Reaction(s): swelling, hives Sulfa Antibiotics Other Reaction(s): swelling, hives PROBLEMS Active Ambulatory Problems Diagnosis Date Noted Constipation 01/13/2023 Equinus contracture of left ankle 01/13/2023 Chronic migraine without aura without status migrainosus, not intractable ([facility]) 06/17/2023 Anxiety and depression ([facility]) 06/29/2023 Edema, lower extremity 07/02/2023 Screening mammogram for breast cancer 08/02/2023 Body mass index (BMI) 50.0-59.9, adult ([facility]) 08/02/2023 HLD (hyperlipidemia) ([facility]) 08/02/2023 HTN (hypertension) ([facility]) 08/02/2023 Abnormal weight gain 08/02/2023 MARCK (obstructive sleep apnea) 08/23/2023 Insomnia 08/23/2023 Tricuspid regurgitation 08/23/2023 Secondary pulmonary arterial hypertension ([facility]) 08/23/2023 Gastroesophageal reflux disease, unspecified whether esophagitis present 08/23/2023 Diarrhea 10/13/2023 Family history of premature CAD 11/04/2023 Pre-diabetes 11/04/2023 Other hemorrhoids 02/09/2024 Anal or rectal pain 02/21/2024 Metabolic syndrome 03/13/2024 Nausea 04/25/2024 Dental infection 07/20/2024 Morbid (severe) obesity due to excess calories ([facility]) 08/30/2024 Resolved Ambulatory Problems Diagnosis Date Noted URI, acute 10/13/2023 Elevated glucose 10/21/2023 Chronic rectal pain 02/21/2024 Past Medical History: Diagnosis Date Allergic rhinitis Chest pain Family history of thyroid disease Hemorrhoids Iron deficiency anemia Lower extremity edema 08/02/2023 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[facility]) 08/23/2023 HISTORY PAST MEDICAL HISTORY SOCIAL HISTORY Past Medical History: Diagnosis Date Allergic rhinitis Anxiety and depression ([facility]) 06/29/2023 Chest pain Chronic migraine without aura without status migrainosus, not intractable ([facility]) 06/17/2023 Edema, lower extremity 07/02/2023 Family history of thyroid disease Gastroesophageal reflux disease, unspecified whether esophagitis present 08/23/2023 Hemorrhoids HLD (hyperlipidemia) ([facility]) 08/02/2023 labs: 01/12/22: TC 236 HDL 65 Trigs 106 [id number] HTN (hypertension) ([facility]) 08/02/2023 Insomnia 08/23/2023 Iron deficiency anemia Lower extremity edema 08/02/2023 MARCK (obstructive sleep apnea) 08/23/2023 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[facility]) 08/23/2023 Tricuspid regurgitation 08/23/2023 Social History Tobacco Use Smoking status: Never Smokeless tobacco: Never Vaping Use Vaping status: Never Used Substance Use Topics Alcohol use: Never Drug use: Never FAMILY HISTORY Family History Problem Relation Name Age of Onset Hypertension Mother Selena's thyroiditis Mother Heart disease Father Cancer Father x 2 Hypertension Father SURGICAL HISTORY Past Surgical History: Procedure Laterality Date SECTION, CLASSIC DILATION AND CURETTAGE OF UTERUS HYSTERECTOMY 09/11/2022 still has ovaries TONSILLECTOMY REVIEW OF SYSTEMS Review of Systems: Review of Systems Constitutional: Negative. HENT: Negative. Eyes: Negative. Respiratory: Negative. Cardiovascular: Negative. Gastrointestinal: Negative. Genitourinary: Negative. Musculoskeletal: Negative. Skin: Negative. Neurological: Negative. All other systems reviewed and are negative. Hematological: Negative. Endocrine: Negative. Allergic/Immunologic: Negative. OBJECTIVE Objective: Physical Exam Constitutional: Appearance: Normal appearance. She is well-developed. Genitourinary: Vulva normal. Vaginal cuff intact. Cervix is absent. Uterus is absent. Cardiovascular: Rate and Rhythm: Normal rate and regular rhythm. Abdominal: General: Bowel sounds are normal. There is no distension. Palpations: Abdomen is soft. Tenderness: There is no abdominal tenderness. There is no guarding or rebound. Musculoskeletal: General: No swelling. Normal range of motion. Right lower leg: No edema. Left lower leg: No edema. Neurological: Mental Status: She is alert and oriented to person, place, and time. Skin: General: Skin is warm and dry. Psychiatric: Mood and Affect: Mood normal. Behavior: Behavior normal. Vitals and nursing note reviewed. Exam conducted with a warehouse lead present. Vitals: Estimated body mass index is 47.9 kg/m as calculated from the following: Height as of 04/03/24: 5' 3 . Weight as of this encounter: 270 lb 6.4 oz. BP: 120/78 No LMP recorded. Patient has had a hysterectomy. ASSESSMENT & PLAN ICD-10-CM 1. Well woman exam with routine gynecological exam Z01.419 THIN PREP TIS PAP AND HR HPV DNA 2. Breast cancer screening by mammogram Z12.31 Bilateral screening mammogram Bilateral screening mammogram Annual: Patient presents today for an annual exam. Patient states she is doing well and has no complaints. Pap was obtained without difficulty and patient given mammogram order to have scheduled/obtained. Orders Placed This Encounter Procedures Bilateral screening mammogram Follow Up: Patient is to return in one year for annual unless needed otherwise. Documented by Karyn Linares LPN on behalf of: Honorio Shane DO documented in this encounter [facility] 08-30-2024 History of Presen t illness Narrative [...] There is no history of kidney disease, CAD/MS, heart failure or left ventricular hypertrophy. Anxiety [...] Diagnosis Date Allergic rhinitis Anxiety and depression ([facility]) 06/29/2023 Chest pain Chronic migraine without aura without status migrainosus, not intractable ([facility]) 06/17/2023 Edema, lower extremity 07/02/2023 Family history of thyroid disease Gastroesophageal reflux disease, unspecified whether esophagitis present 08/23/2023 Hemorrhoids HLD (hyperlipidemia) ([facility]) 08/02/2023 labs: 01/12/22: TC 236 HDL 65 Trigs 106 [id number] HTN (hypertension) (CMS/HCC) 08/02/2023 Insomnia 08/23/2023 Iron deficiency anemia Lower [...] Items Addressed This Visit Anxiety and depression ([facility]) PHQ 9=3 JESUS 7=5 Current [...] panel Body mass index (BMI) 50.0-59.9, adult ([facility]) HLD (hyperlipidemia) ([facility]) Check labs Relevant Orders Comprehensive metabolic panel Lipid panel HTN (hypertension) ([facility]) - Primary Please check blood [...] 150 MG tablet Secondary pulmonary arterial hypertension ([facility]) Per ECHO findings Gastroesophageal reflux disease, unspecified [...] trazodone at HS documented in this encounter [facility] 08-30-2024 Instructions Aida Chaves NP - 08/30/2024 1:40 PM EST Get labs done: fasting Keep up the great work on your weight loss documented in this encounter [facility] 08-27-2024 Telephone encount er Note Needs a fu appt in the next few weeks [place] [facility] 08-27-2024 Miscellaneous Notes Formattin g of this note might be different from the original. Needs a fu appt in the next few weeks [place] documented in this encounter [facility] 07-03-2024 Telephone encount er Note [facility] does not have ozempic in stock, can you resend 90 day script [facility]empic to [facility] [place] [facility] 07-03-2024 Miscellaneous Notes Formattin g of this note might be different from the original. [facility] does not have ozempic in stock, can you resend 90 day script for ozempic to [facility] [place] documented in this encounter [facility] 04-03-2024 History of Presen t illness Narrative [...] compliance problems. There is no history of CAD/MS. Diabetes She has type 2 diabetes mellitus. [...] being taken. She does not see a eligibility services representative.Eye exam is current. SUBJECTIVE: MEDICATIONS: Current Outpatient [...] Diagnosis Date Allergic rhinitis Anxiety and depression ([facility]) 06/29/2023 Chest pain Chronic migraine without aura without status migrainosus, not intractable ([facility]) 06/17/2023 Edema, lower extremity 07/02/2023 Family history of thyroid disease Gastroesophageal reflux disease, unspecified whether esophagitis present 08/23/2023 Hemorrhoids HLD (hyperlipidemia) ([facility]) 08/02/2023 labs: 01/12/22: TC 236 HDL 65 Trigs 106 [id number] HTN (hypertension) ([facility]) 08/02/2023 Insomnia 08/23/2023 Iron deficiency anemia Lower extremity edema 08/02/2023 MARCK (obstructive sleep apnea) 08/23/2023 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[facility]) 08/23/2023 Tricuspid regurgitation 08/23/2023 Past [...] 150 MG tablet documented in this encounter [facility] 02-23-2024 History of Presen t illness Narrative [...] Diagnosis Date Allergic rhinitis Anxiety and depression ([facility]) 06/29/2023 Chest pain Chronic migraine without aura without status migrainosus, not intractable ([facility]) 06/17/2023 Edema, lower extremity 07/02/2023 Family history of thyroid disease Gastroesophageal reflux disease, unspecified whether esophagitis present 08/23/2023 Hemorrhoids HLD (hyperlipidemia) ([facility]) 08/02/2023 labs: 01/12/22: TC 236 HDL 65 Trigs 106 [id number] HTN (hypertension) ([facility]) 08/02/2023 Insomnia 08/23/2023 Iron deficiency anemia Lower extremity edema 08/02/2023 MARCK (obstructive sleep apnea) 08/23/2023 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[facility]) 08/23/2023 Tricuspid regurgitation 08/23/2023 Social History Tobacco [...] daily as needed for discomfort/pain Thank you, K Harjit Smith DO documented in this encounter [facility] 02-21-2024 History of Presen t illness Narrative [...] Diagnosis Date Allergic rhinitis Anxiety and depression ([facility]) 06/29/2023 Chest pain Chronic migraine without aura without status migrainosus, not intractable ([facility]) 06/17/2023 Edema, lower extremity 07/02/2023 Family history of thyroid disease Gastroesophageal reflux disease, unspecified whether esophagitis present 08/23/2023 Hemorrhoids HLD (hyperlipidemia) ([facility]) 08/02/2023 labs: 01/12/22: TC 236 HDL 65 Trigs 106 [id number] HTN (hypertension) ([facility]) 08/02/2023 Insomnia 08/23/2023 Iron deficiency anemia Lower extremity edema 08/02/2023 MARCK (obstructive sleep apnea) 08/23/2023 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[facility]) 08/23/2023 Tricuspid regurgitation 08/23/2023 Past [...] Chronic rectal pain documented in this encounter [facility] 09-11-2022 Note OP Note OPERATION DATE: 09/11/2022 PROCEDURE: Robotic assisted laparoscopic hysterectomy with bilateral salpingectomy with cystoscopy. PREOPERATIVE DIAGNOSIS: Cervical dysplasia, history of abnormal cervical cells, menorrhagia, dyspareunia, dysmenorrhea. POSTOPERATIVE DIAGNOSIS: Cervical dysplasia, history of abnormal cervical cells, menorrhagia, dyspareunia, dysmenorrhea. ANESTHESIA: General. SURGEON: Honorio Shane D.O. BINDER OPERATOR: JOSH Gonzales URINE OUTPUT: Yellow and clear. [...] Anesthesia first. Patient tolerated procedure well. [facility] 09-11-2022 Note DISCHARGE SUMMARY NOTE DATE: [...] free and no longer on narcotics. [facility] 09-11-2022 Note OPERATIVE NOTE OPERATION DATE: 09/12/2022 PROCEDURE: Robotic assisted laparoscopic hysterectomy with bilateral salpingectomy with cystoscopy. PREOPERATIVE DIAGNOSIS: Cervical dysplasia, history of abnormal cervical cells, menorrhagia, dyspareunia, dysmenorrhea. POSTOPERATIVE DIAGNOSIS: Cervical dysplasia, history of abnormal cervical cells, menorrhagia, dyspareunia, dysmenorrhea. ANESTHESIA: General. SURGEON: Honorio Shane D.O. BINDER OPERATOR: JOSH Gonzales URINE OUTPUT: Yellow and clear. [...] Anesthesia first. Patient tolerated procedure well. [facility] Evaluation note Diagnosis Anxiety and depression (CMS/HCC)- Primary Screening mammogram for breast cancer BMI 50.0-59.9, adult (CMS/HCC) Lower extremity edema Edema Primary hypertension (CMS/HCC) Unspecified essential hypertension Mixed hyperlipidemia (CMS/HCC) Mixed hyperlipidemia Abnormal weight gain Anxiety and depression (CMS/HCC)- Primary Family history of premature CAD Family history of ischemic heart disease Primary hypertension (CMS/HCC) Unspecified essential hypertension MARCK (obstructive sleep apnea) Obstructive sleep apnea (adult) (pediatric) Pre-diabetes Other abnormal glucose BMI 50.0-59.9, adult (CMS/HCC) Primary hypertension (CMS/HCC)- Primary Unspecified essential hypertension Essential (primary) hypertension ([facility]) Unspecified essential hypertension Essential hypertension ([facility]) Unspecified essential hypertension Anxiety disorder, unspecified Anxiety state ([facility]) Anxiety state, unspecified Anxiety and depression ([facility]) Edema, lower extremity Allergic rhinitis, unspecified Allergic rhinitis Allergic rhinitis, cause unspecified Gastro-esophageal reflux disease without esophagitis Insomnia, unspecified MARCK (obstructive sleep apnea) Obstructive sleep apnea (adult) (pediatric) Primary insomnia Persistent disorder of initiating or maintaining sleep Gastroesophageal reflux disease, unspecified whether esophagitis present Lower extremity edema Edema BMI 50.0-59.9, adult ([facility]) Pre-diabetes Other abnormal glucose Anal or rectal pain- Primary BMI 50.0-59.9, adult ([facility]) Chronic rectal pain Pre-diabetes- Primary Other abnormal glucose MARCK (obstructive sleep apnea) Obstructive sleep apnea (adult) (pediatric) Primary hypertension ([facility]) Unspecified essential hypertension Edema, lower extremity BMI 50.0-59.9, adult ([facility]) Anxiety and depression ([facility] Essential (primary) hypertension ([facility]) Unspecified essential hypertension Essential hypertension ([facility]) Unspecified essential hypertension Anxiety disorder, unspecified Anxiety state ([facility]) Anxiety state, unspecified Gastro-esophageal reflux disease without esophagitis Insomnia, unspecified Nausea- Primary Nausea alone documented in this encounter [facility]* Diagnosis Anal or rectal pain- Primary BMI 50.0-59.9, adult ([facility]) Chronic rectal pain documented in this encounter [facility]* Diagnosis Anxiety and depression ([facility])- Primary Screening mammogram for breast cancer BMI 50.0-59.9, adult ([facility]) Lower extremity edema Edema Primary hypertension ([facility]) Unspecified essential hypertension Mixed hyperlipidemia ([facility]) Mixed hyperlipidemia Abnormal weight gain Anxiety and depression ([facility])- Primary Family history of premature CAD Family history of ischemic heart disease Primary hypertension ([facility]) Unspecified essential hypertension MARCK (obstructive sleep apnea) Obstructive sleep apnea (adult) (pediatric) Pre-diabetes Other abnormal glucose BMI 50.0-59.9, adult ([facility]) Primary hypertension ([facility])- Primary Unspecified essential hypertension Essential (primary) hypertension ([facility]) Unspecified essential hypertension Essential hypertension ([facility]) Unspecified essential hypertension Anxiety disorder, unspecified Anxiety state ([facility]) Anxiety state, unspecified Anxiety and depression ([facility]) Edema, lower extremity Allergic rhinitis, unspecified Allergic rhinitis Allergic rhinitis, cause unspecified Gastro-esophageal reflux disease without esophagitis Insomnia, unspecified MARCK (obstructive sleep apnea) Obstructive sleep apnea (adult) (pediatric) Primary insomnia Persistent disorder of initiating or maintaining sleep Gastroesophageal reflux disease, unspecified whether esophagitis present Lower extremity edema Edema BMI 50.0-59.9, adult ([facility]) Pre-diabetes Other abnormal glucose Anal or rectal pain- Primary BMI 50.0-59.9, adult ([facility]) Chronic rectal pain Pre-diabetes- Primary Other abnormal glucose MARCK (obstructive sleep apnea) Obstructive sleep apnea (adult) (pediatric) Primary hypertension ([facility]) Unspecified essential hypertension Edema, lower extremity BMI 50.0-59.9, adult ([facility]) Anxiety and depression ([facility]) Essential (primary) hypertension ([facility]) Unspecified essential hypertension Essential hypertension ([facility]) Unspecified essential hypertension Anxiety disorder, unspecified Anxiety state ([facility]) Anxiety state, unspecified Gastro-esophageal reflux [...] Primary Other abnormal glucose BMI 50.0-59.9, adult ([facility]) Metabolic syndrome Dysmetabolic Syndrome X [facility] Diagnosis Pre-diabetes- Primary Other abnormal glucose [facility] Diagnosis MARCK (obstructive sleep apnea)- Primary Obstructive sleep apnea (adult) (pediatric) Primary hypertension ([facility]) Unspecified essential hypertension Edema, lower extremity BMI 50.0-59.9, adult ([facility]) Anxiety and depression ([facility]) Essential (primary) hypertension ([facility]) Unspecified essential hypertension Essential hypertension ([facility]) Unspecified essential hypertension Anxiety disorder, unspecified Anxiety state ([facility]) Anxiety state, unspecified Gastro-esophageal reflux disease without esophagitis Insomnia, unspecified documented in this encounter [facility]* Diagnosis Anxiety and depression ([facility])- Primary Screening mammogram for breast cancer BMI 50.0-59.9, adult ([facility]) Lower extremity edema Edema Primary hypertension ([facility]) Unspecified essential hypertension Mixed hyperlipidemia ([facility]) Mixed hyperlipidemia Abnormal weight gain Anxiety and depression ([facility])- Primary Family history of premature CAD Family history of ischemic heart disease Primary hypertension ([facility]) Unspecified essential hypertension MARCK (obstructive sleep apnea) Obstructive sleep apnea (adult) (pediatric) Pre-diabetes Other abnormal glucose BMI 50.0-59.9, adult ([facility]) Primary hypertension ([facility])- Primary Unspecified essential hypertension Essential (primary) hypertension ([facility]) Unspecified essential hypertension Essential hypertension ([facility]) Unspecified essential hypertension Anxiety disorder, unspecified Anxiety state ([facility]) Anxiety state, unspecified Anxiety and depression ([facility]) Edema, lower extremity Allergic rhinitis, unspecified Allergic rhinitis Allergic rhinitis, cause unspecified Gastro-esophageal reflux disease without esophagitis Insomnia, unspecified MARCK (obstructive sleep apnea) Obstructive sleep apnea (adult) (pediatric) Primary insomnia Persistent disorder of initiating or maintaining sleep Gastroesophageal reflux disease, unspecified whether esophagitis present Lower extremity edema Edema BMI 50.0-59.9, adult ([facility]) Pre-diabetes Other abnormal glucose Anal or rectal pain- Primary BMI 50.0-59.9, adult ([facility]) Chronic rectal pain Pre-diabetes- Primary Other abnormal glucose MARCK (obstructive sleep apnea) Obstructive sleep apnea (adult) (pediatric) Primary hypertension ([facility]) Unspecified essential hypertension Edema, lower extremity BMI 50.0-59.9, adult ([facility]) Anxiety and depression ([facility] Essential (primary) hypertension ([facility]) Unspecified essential hypertension Essential hypertension ([facility]) Unspecified essential hypertension Anxiety disorder, unspecified Anxiety state ([facility]) Anxiety state, unspecified Gastro-esophageal reflux disease without esophagitis Insomnia, unspecified Pre-diabetes Other abnormal glucose documented in this encounter [facility] HealthcareEvaluation note* Diagnosis Anxiety and depression ([facility])- Primary Screening mammogram for breast cancer BMI 50.0-59.9, adult ([facility]) Lower extremity edema Edema Primary hypertension ([facility]) Unspecified essential hypertension Mixed hyperlipidemia ([facility]) Mixed hyperlipidemia Abnormal weight gain Anxiety and depression ([facility])- Primary Family history of premature CAD Family history of ischemic heart disease Primary hypertension ([facility]) Unspecified essential hypertension MARCK (obstructive sleep apnea) Obstructive sleep apnea (adult) (pediatric) Pre-diabetes Other abnormal glucose BMI 50.0-59.9, adult ([facility]) Primary hypertension ([facility])- Primary Unspecified essential hypertension Essential (primary) hypertension ([facility]) Unspecified essential hypertension Essential hypertension ([facility]) Unspecified essential hypertension Anxiety disorder, unspecified Anxiety state ([facility]) Anxiety state, unspecified Anxiety and depression ([facility]) Edema, lower extremity Allergic rhinitis, unspecified Allergic rhinitis Allergic rhinitis, cause unspecified Gastro-esophageal reflux disease without esophagitis Insomnia, unspecified MARCK (obstructive sleep apnea) Obstructive sleep apnea (adult) (pediatric) Primary insomnia Persistent disorder of initiating or maintaining sleep Gastroesophageal reflux disease, unspecified whether esophagitis present Lower extremity edema Edema BMI 50.0-59.9, adult ([facility]) Pre-diabetes Other abnormal glucose Anal or rectal pain- Primary BMI 50.0-59.9, adult ([facility]) Chronic rectal pain Pre-diabetes- Primary Other abnormal glucose MARCK (obstructive sleep apnea) Obstructive sleep apnea (adult) (pediatric) Primary hypertension ([facility]) Unspecified essential hypertension Edema, lower extremity BMI 50.0-59.9, adult ([facility]) Anxiety and depression ([facility] Essential (primary) hypertension ([facility]) Unspecified essential hypertension Essential hypertension ([facility]) Unspecified essential hypertension Anxiety disorder, unspecified Anxiety state ([facility]) Anxiety state, unspecified Gastro-esophageal reflux disease without esophagitis Insomnia, unspecified Dental infection- Primary documented in this encounter [facility] HealthcareEvaluation note* Diagnosis Anxiety and depression ([facility])- Primary Screening mammogram for breast cancer BMI 50.0-59.9, adult ([facility]) Lower extremity edema Edema Primary hypertension ([facility]) Unspecified essential hypertension Mixed hyperlipidemia ([facility] Mixed hyperlipidemia Abnormal weight gain Anxiety and depression ([facility])- Primary Family history of premature CAD Family history of ischemic heart disease Primary hypertension ([facility]) Unspecified essential hypertension MARCK (obstructive sleep apnea) Obstructive sleep apnea (adult) (pediatric) Pre-diabetes Other abnormal glucose BMI 50.0-59.9, adult ([facility]) Primary hypertension ([facility])- Primary Unspecified essential hypertension Essential (primary) hypertension ([facility]) Unspecified essential hypertension Essential hypertension ([facility]) Unspecified essential hypertension Anxiety disorder, unspecified Anxiety state ([facility]) Anxiety state, unspecified Anxiety and depression ([facility]) Edema, lower extremity Allergic rhinitis, unspecified Allergic rhinitis Allergic rhinitis, cause unspecified Gastro-esophageal reflux disease without esophagitis Insomnia, unspecified MARCK (obstructive sleep apnea) Obstructive sleep apnea (adult) (pediatric) Primary insomnia Persistent disorder of initiating or maintaining sleep Gastroesophageal reflux disease, unspecified whether esophagitis present Lower extremity edema Edema BMI 50.0-59.9, adult ([facility]) Pre-diabetes Other abnormal glucose Anal or rectal pain- Primary BMI 50.0-59.9, adult ([facility]) Chronic rectal pain Pre-diabetes- Primary Other abnormal glucose MARCK (obstructive sleep apnea) Obstructive sleep apnea (adult) (pediatric) Primary hypertension ([facility]) Unspecified essential hypertension Edema, lower extremity BMI 50.0-59.9, adult ([facility]) Anxiety and depression ([facility] Essential (primary) hypertension ([facility]) Unspecified essential hypertension Essential hypertension ([facility]) Unspecified essential hypertension Anxiety disorder, unspecified Anxiety state ([facility]) Anxiety state, unspecified Gastro-esophageal reflux disease without esophagitis Insomnia, unspecified Gastro-esophageal reflux disease without esophagitis documented in this encounter [facility] HealthcareEvaluation note* Diagnosis Anxiety and depression ([facility])- Primary Screening mammogram for breast cancer BMI 50.0-59.9, adult ([facility]) Lower extremity edema Edema Primary hypertension ([facility]) Unspecified essential hypertension Mixed hyperlipidemia ([facility] Mixed hyperlipidemia Abnormal weight gain Anxiety and depression ([facility])- Primary Family history of premature CAD Family history of ischemic heart disease Primary hypertension ([facility]) Unspecified essential hypertension MARCK (obstructive sleep apnea) Obstructive sleep apnea (adult) (pediatric) Pre-diabetes Other abnormal glucose BMI 50.0-59.9, adult ([facility]) Primary hypertension ([facility])- Primary Unspecified essential hypertension Essential (primary) hypertension ([facility]) Unspecified essential hypertension Essential hypertension ([facility]) Unspecified essential hypertension Anxiety disorder, unspecified Anxiety state ([facility]) Anxiety state, unspecified Anxiety and depression ([facility]) Edema, lower extremity Allergic rhinitis, unspecified Allergic rhinitis Allergic rhinitis, cause unspecified Gastro-esophageal reflux disease without esophagitis Insomnia, unspecified MARCK (obstructive sleep apnea) Obstructive sleep apnea (adult) (pediatric) Primary insomnia Persistent disorder of initiating or maintaining sleep Gastroesophageal reflux disease, unspecified whether esophagitis present Lower extremity edema Edema BMI 50.0-59.9, adult ([facility]) Pre-diabetes Other abnormal glucose Anal or rectal pain- Primary BMI 50.0-59.9, adult ([facility]) Chronic rectal pain Pre-diabetes- Primary Other abnormal glucose MARCK (obstructive sleep apnea) Obstructive sleep apnea (adult) (pediatric) Primary hypertension ([facility]) Unspecified essential hypertension Edema, lower extremity BMI 50.0-59.9, adult ([facility]) Anxiety and depression ([facility] Essential (primary) hypertension ([facility]) Unspecified essential hypertension Essential hypertension ([facility]) Unspecified essential hypertension Anxiety disorder, unspecified Anxiety state ([facility]) Anxiety state, unspecified Gastro-esophageal reflux disease without esophagitis Insomnia, unspecified Primary hypertension ([facility])- Primary Unspecified essential hypertension Secondary pulmonary arterial hypertension ([facility]) Morbid (severe) obesity due to excess calories ([facility]) Body mass index (BMI) 50.0-59.9, adult ([facility]) Primary insomnia Persistent disorder of initiating or maintaining sleep MARCK (obstructive sleep apnea) Obstructive sleep apnea (adult) (pediatric) Gastroesophageal reflux disease, unspecified whether esophagitis present Edema, lower extremity Pre-diabetes Other abnormal glucose Anxiety and depression ([facility]) Metabolic syndrome Dysmetabolic Syndrome X Mixed hyperlipidemia ([facility]) Mixed hyperlipidemia documented in this encounter [facility] HealthcareEvaluation note* Diagnosis Anxiety and depression ([facility])- Primary Screening mammogram for breast cancer BMI 50.0-59.9, adult ([facility]) Lower extremity edema Edema Primary hypertension ([facility]) Unspecified essential hypertension Mixed hyperlipidemia ([facility] Mixed hyperlipidemia Abnormal weight gain Anxiety and depression ([facility])- Primary Family history of premature CAD Family history of ischemic heart disease Primary hypertension ([facility]) Unspecified essential hypertension MARCK (obstructive sleep apnea) Obstructive sleep apnea (adult) (pediatric) Pre-diabetes Other abnormal glucose BMI 50.0-59.9, adult ([facility]) Primary hypertension ([facility])- Primary Unspecified essential hypertension Essential (primary) hypertension ([facility]) Unspecified essential hypertension Essential hypertension ([facility]) Unspecified essential hypertension Anxiety disorder, unspecified Anxiety state ([facility]) Anxiety state, unspecified Anxiety and depression ([facility]) Edema, lower extremity Allergic rhinitis, unspecified Allergic rhinitis Allergic rhinitis, cause unspecified Gastro-esophageal reflux disease without esophagitis Insomnia, unspecified MARCK (obstructive sleep apnea) Obstructive sleep apnea (adult) (pediatric) Primary insomnia Persistent disorder of initiating or maintaining sleep Gastroesophageal reflux disease, unspecified whether esophagitis present Lower extremity edema Edema BMI 50.0-59.9, adult ([facility]) Pre-diabetes Other abnormal glucose Anal or rectal pain- Primary BMI 50.0-59.9, adult ([facility]) Chronic rectal pain Pre-diabetes- Primary Other abnormal glucose MARCK (obstructive sleep apnea) Obstructive sleep apnea (adult) (pediatric) Primary hypertension ([facility]) Unspecified essential hypertension Edema, lower extremity BMI 50.0-59.9, adult ([facility]) Anxiety and depression ([facility] Essential (primary) hypertension ([facility]) Unspecified essential hypertension Essential hypertension ([facility]) Unspecified essential hypertension Anxiety disorder, unspecified Anxiety state ([facility]) Anxiety state, unspecified Gastro-esophageal reflux disease without esophagitis Insomnia, unspecified Primary hypertension ([facility])- Primary Unspecified essential hypertension Secondary pulmonary arterial hypertension ([facility] Morbid (severe) obesity due to excess calories ([facility]) Body mass index (BMI) 50.0-59.9, adult ([facility]) Primary insomnia Persistent disorder of initiating or maintaining sleep MARCK (obstructive sleep apnea) Obstructive sleep apnea (adult) (pediatric) Gastroesophageal reflux disease, unspecified whether esophagitis present Edema, lower extremity Pre-diabetes Other abnormal glucose Anxiety and depression ([facility]) Metabolic syndrome Dysmetabolic Syndrome X Mixed hyperlipidemia ([facility]) Mixed hyperlipidemia Well woman exam with routine gynecological exam Routine gynecological examination Breast cancer screening by mammogram documented in this encounter [facility] HealthcareEvaluation note* Diagnosis Anxiety and depression ([facility])- Primary Screening mammogram for breast cancer BMI 50.0-59.9, adult ([facility]) Lower extremity edema Edema Primary hypertension ([facility]) Unspecified essential hypertension Mixed hyperlipidemia ([facility] Mixed hyperlipidemia Abnormal weight gain Anxiety and depression ([facility])- Primary Family history of premature CAD Family history of ischemic heart disease Primary hypertension ([facility]) Unspecified essential hypertension MARCK (obstructive sleep apnea) Obstructive sleep apnea (adult) (pediatric) Pre-diabetes Other abnormal glucose BMI 50.0-59.9, adult ([facility]) Primary hypertension ([facility])- Primary Unspecified essential hypertension Essential (primary) hypertension ([facility]) Unspecified essential hypertension Essential hypertension ([facility]) Unspecified essential hypertension Anxiety disorder, unspecified Anxiety state ([facility]) Anxiety state, unspecified Anxiety and depression ([facility]) Edema, lower extremity Allergic rhinitis, unspecified Allergic rhinitis Allergic rhinitis, cause unspecified Gastro-esophageal reflux disease without esophagitis Insomnia, unspecified MARCK (obstructive sleep apnea) Obstructive sleep apnea (adult) (pediatric) Primary insomnia Persistent disorder of initiating or maintaining sleep Gastroesophageal reflux disease, unspecified whether esophagitis present Lower extremity edema Edema BMI 50.0-59.9, adult ([facility]) Pre-diabetes Other abnormal glucose Anal or rectal pain- Primary BMI 50.0-59.9, adult ([facility]) Chronic rectal pain Pre-diabetes- Primary Other abnormal glucose MARCK (obstructive sleep apnea) Obstructive sleep apnea (adult) (pediatric) Primary hypertension ([facility]) Unspecified essential hypertension Edema, lower extremity BMI 50.0-59.9, adult ([facility]) Anxiety and depression ([facility]) Essential (primary) hypertension ([facility]) Unspecified essential hypertension Essential hypertension ([facility]) Unspecified essential hypertension Anxiety disorder, unspecified Anxiety state ([facility]) Anxiety state, unspecified Gastro-esophageal reflux disease without esophagitis Insomnia, unspecified Primary hypertension ([facility])- Primary Unspecified essential hypertension Secondary pulmonary arterial hypertension ([facility] Morbid (severe) obesity due to excess calories ([facility]) Body mass index (BMI) 50.0-59.9, adult ([facility]) Primary insomnia Persistent disorder of initiating or maintaining sleep MARCK (obstructive sleep apnea) Obstructive sleep apnea (adult) (pediatric) Gastroesophageal reflux disease, unspecified whether esophagitis present Edema, lower extremity Pre-diabetes Other abnormal glucose Anxiety and depression ([facility]) Metabolic syndrome Dysmetabolic Syndrome X Mixed hyperlipidemia ([facility]) Mixed hyperlipidemia Breast abscess- Primary Inflammatory disease of breast documented in this encounter [facility]Evaluation note* Diagnosis Anxiety and depression ([facility])- Primary Screening mammogram for breast cancer BMI 50.0-59.9, adult ([facility]) Lower extremity edema Edema Primary hypertension ([facility]) Unspecified essential hypertension Mixed hyperlipidemia ([facility] Mixed hyperlipidemia Abnormal weight gain Anxiety and depression ([facility])- Primary Family history of premature CAD Family history of ischemic heart disease Primary hypertension ([facility]) Unspecified essential hypertension MARCK (obstructive sleep apnea) Obstructive sleep apnea (adult) (pediatric) Pre-diabetes Other abnormal glucose BMI 50.0-59.9, adult ([facility]) Primary hypertension ([facility])- Primary Unspecified essential hypertension Essential (primary) hypertension ([facility] Unspecified essential hypertension Essential hypertension ([facility]) Unspecified essential hypertension Anxiety disorder, unspecified Anxiety state ([facility]) Anxiety state, unspecified Anxiety and depression ([facility]) Edema, lower extremity Allergic rhinitis, unspecified Allergic rhinitis Allergic rhinitis, cause unspecified Gastro-esophageal reflux disease without esophagitis Insomnia, unspecified MARCK (obstructive sleep apnea) Obstructive sleep apnea (adult) (pediatric) Primary insomnia Persistent disorder of initiating or maintaining sleep Gastroesophageal reflux disease, unspecified whether esophagitis present Lower extremity edema Edema BMI 50.0-59.9, adult ([facility]) Pre-diabetes Other abnormal glucose Anal or rectal pain- Primary BMI 50.0-59.9, adult ([facility]) Chronic rectal pain Pre-diabetes- Primary Other abnormal glucose MARCK (obstructive sleep apnea) Obstructive sleep apnea (adult) (pediatric) Primary hypertension ([facility]) Unspecified essential hypertension Edema, lower extremity BMI 50.0-59.9, adult ([facility]) Anxiety and depression ([facility] [facility] Essential (primary) hypertension ([facility]) Unspecified essential hypertension Essential hypertension ([facility]) Unspecified essential hypertension Anxiety disorder, unspecified Anxiety state ([facility]) Anxiety state, unspecified Gastro-esophageal reflux disease without esophagitis Insomnia, unspecified Primary hypertension ([facility])- Primary Unspecified essential hypertension Secondary pulmonary arterial hypertension ([facility]) Morbid (severe) obesity due to excess calories ([facility]) Body mass index (BMI) 50.0-59.9, adult ([facility]) Primary insomnia Persistent disorder of initiating or maintaining sleep MARCK (obstructive sleep apnea) Obstructive sleep apnea (adult) (pediatric) Gastroesophageal reflux disease, unspecified whether esophagitis present Edema, lower extremity Pre-diabetes Other abnormal glucose Anxiety and depression ([facility]) Metabolic syndrome Dysmetabolic Syndrome X Mixed hyperlipidemia ([facility]) Mixed hyperlipidemia Breast abscess- Primary Inflammatory disease of breast Mucocele of mouth- Primary Other and unspecified diseases of the oral soft tissues documented in this encounter [facility] HealthcareEvaluation note* Diagnosis Anxiety and depression- Primary Screening mammogram for breast cancer BMI 50.0-59.9, adult ([facility]) Lower extremity edema Edema Primary hypertension Unspecified essential hypertension Mixed hyperlipidemia Mixed hyperlipidemia Abnormal weight gain Anxiety and depression- Primary Family history of premature CAD Family history of ischemic heart disease Primary hypertension Unspecified essential hypertension MARCK (obstructive sleep apnea) Obstructive sleep apnea (adult) (pediatric) Pre-diabetes Other abnormal glucose BMI 50.0-59.9, adult ([facility]) Primary hypertension- Primary Unspecified essential hypertension Essential (primary) hypertension Unspecified essential hypertension Essential hypertension Unspecified essential hypertension Anxiety disorder, unspecified Anxiety state Anxiety state, unspecified Anxiety and depression Edema, lower extremity Allergic rhinitis, unspecified Allergic rhinitis Allergic rhinitis, cause unspecified Gastro-esophageal reflux disease without esophagitis Insomnia, unspecified MARCK (obstructive sleep apnea) Obstructive sleep apnea (adult) (pediatric) Primary insomnia Persistent disorder of initiating or maintaining sleep Gastroesophageal reflux disease, unspecified whether esophagitis present Lower extremity edema Edema BMI 50.0-59.9, adult ([facility]) Pre-diabetes Other abnormal glucose Anal or rectal pain- Primary BMI 50.0-59.9, adult ([facility]) Chronic rectal pain Pre-diabetes- Primary Other abnormal glucose MARCK (obstructive sleep apnea) Obstructive sleep apnea (adult) (pediatric) Primary hypertension Unspecified essential hypertension Edema, lower extremity BMI 50.0-59.9, adult ([facility]) Anxiety and depression Essential (primary) hypertension Unspecified essential hypertension Essential hypertension Unspecified essential hypertension Anxiety disorder, unspecified Anxiety state Anxiety state, unspecified Gastro-esophageal reflux disease without esophagitis Insomnia, unspecified Primary hypertension- Primary Unspecified essential hypertension Secondary pulmonary arterial hypertension (HCC) Morbid (severe) obesity due to excess calories ([facility]) Body mass index (BMI) 50.0-59.9, adult ([facility]) Primary insomnia Persistent disorder of initiating or maintaining sleep MARCK (obstructive sleep apnea) Obstructive sleep apnea (adult) (pediatric) Gastroesophageal reflux disease, unspecified whether esophagitis present Edema, lower extremity Pre-diabetes Other abnormal glucose Anxiety and depression Metabolic syndrome Dysmetabolic Syndrome X Mixed hyperlipidemia Mixed hyperlipidemia Breast abscess- Primary Inflammatory disease of breast Mucocele of mouth- Primary Other and unspecified diseases of the oral soft tissues Mucocele of mouth Other and unspecified diseases of the oral soft tissues documented in this encounter [facility] (narrative)* Consultation (Routine) - Pending Review Specialty Diagnoses / Procedures Referred By Contac t Referred To Contact General Surgery Diagnoses Anal or rectal pain Procedures OK OFFICE/OUTPATIENT NEW HIGH MDM 60 MINUTES Aida Chaves NP [address] [place] [address] Jonatan Smith, [address] [address] Referral ID Status Reason Start Date Expiration Date Visits Requested Visits Authorized [id number] Pending Review Specialty Services Required 02/21/2024 08/19/2024 1 1 * Consultation (Routine) - Pending Review Specialty Diagnoses / Procedures Referred By Contac t Referred To Contact General Surgery Diagnoses Anal or rectal pain Procedures OK OFFICE/OUTPATIENT NEW HIGH MDM 60 MINUTES Aida Chaves NP [address] [place] [address] [facility] [address] [address] Referral ID Status Reason Start Date Expiration Date Visits Requested Visits Authorized [id number] Pending Review Specialty Services Required 02/21/2024 08/19/2024 1 1 [facility] Summary Purpose Family History No Family History Records FoundNo Family History Records Found Advance Directives No Advanced Directives Records FoundNo Advanced Directives Records Found Additional Source Comments INFORMATION SOURCE (unrecogn ized section and content) DATE CREATED AUTHOR 12/11/2022 [facility] DATE CREATED AUTHOR AUTHOR'S ORGANIZ ATION 09/21/2024 [facility] Care Teams (unrecognized sec tion and content) Table Worker Relationship Specialty Start Date End Date Jef Wooten MD [address] [place] [address] PCP - General Family Medicine 07/28/23 Table Worker Relationship Specialty Start Date End Date Jef Wooten MD [address] [place] [address] PCP - General Family Medicine 07/28/23 Table Worker Relationship Specialty Start Date End Date Jef Wooten MD [address] [place] [address] PCP - General Family Medicine 07/28/23 Table Worker Relationship Specialty Start Date End Date Jef Wooten MD [address] [place] [address] PCP - General Family Medicine 07/28/23 Table Worker Relationship Specialty Start Date End Date Jef Wooten MD [address] [place] [address] PCP - General Family Medicine 07/28/23 Table Worker Relationship Specialty Start Date End Date Jef Wooten MD [address] [place] [address] PCP - General Family Medicine 07/28/23 Table Worker Relationship Specialty Start Date End Date Jef Wooten MD [address] [place] [address] PCP - General Family Medicine 07/28/23 Table Worker Relationship Specialty Start Date End Date Jef Wooten MD [address] [place] [address] PCP - General Family Medicine 07/28/23 Table Worker Relationship Specialty Start Date End Date Jef Wooten MD [address] [place] [address] PCP - General Family Medicine 07/28/23 Table Worker Relationship Specialty Start Date End Date Jef Wooten MD [address] [place] [address] PCP - General Family Medicine 07/28/23 Table Worker Relationship Specialty Start Date End Date Jef Wooten MD [address] [place] [address] PCP - General Family Medicine 07/28/23 Table Worker Relationship Specialty Start Date End Date Jef Wooten MD [address] [place] [address] PCP - General Family Medicine 07/28/23 Table Worker Relationship Specialty Start Date End Date Jef Wooten MD [address] [place] [address] PCP - General Family Medicine 07/28/23 Table Worker Relationship Specialty Start Date End Date Jef Wooten MD [address] [place] [address] PCP - [facility] Medicine 07/28/23 Table Worker Relationship Specialty Start Date End Date Jef Wooten MD [address] [place] [address] PCP - [facility] Medicine 07/28/23 Table Worker Relationship Specialty Start Date End Date Jef Wooten MD [address] [place] [address] PCP - [facility] Medicine 07/28/23 Table Worker Relationship Specialty Start Date End Date Jef Wooten MD [address] [place] [address] PCP - [facility] Medicine 07/28/23 Table Worker Relationship Specialty Start Date End Date Jef Wooten MD [address] [place] [address] PCP - General Family Medicine 07/28/23 Reason [...] help with constipation. Reason Comments Med Refill Reason Comments [facility] Visit Reason Onset Date Comments Med Refill 11/30/2024 FOR RECORDS PERTAINING TO PATIENTS WHO ARE [...] BE BASED ON THE PRIMARY CLINICAL RECORDS. [facility]. provides no warranty or guarantee of the accuracy or completeness of information in this document.
[2025-01-20 12:00] LABS: Hematocrit 34.7 % (36.0-48.0); Hemoglobin 11.6 g/dL (12.0-16.0); Immature Granulocytes Abs Auto 0.03 10^3/uL (0.00-0.03); Immature Granulocytes Pct Auto 0.5 % (0.0-0.5); Lymphocytes Absolute Auto 1.6 10^3/uL (1.2-3.8); Mean Corpuscular HGB Conc 33.4 g/dL (29.9-35.2); Mean Corpuscular Hemoglobin 30.4 pg (26.7-34.0); Mean Corpuscular Volume 90.8 fL (81.0-99.0); Platelet Count 279 10^3/uL (150-450); Red Blood Count 3.82 10^6/uL (4.20-5.40); White Blood Count 5.8 10^3/uL (4.0-11.0)
[2025-01-20 12:01] LABS: Alanine Aminotransferase 24 U/L (14-59); Albumin Globulin Ratio 0.9; Albumin Level 3.6 g/dL (3.4-5.0); Alkaline Phosphatase 62 U/L (46-116); Anion Gap 14.3; Aspartate Amino Transferase 16 U/L (15-37); Blood Urea Nitrogen 12.0 mg/dL (7.0-18.0); Calcium 9.2 mg/dL (8.5-10.1); Carbon Dioxide 28.7 mmol/L (21.0-32.0); Chloride 105 mmol/L (98-107); Cholesterol 228 mg/dL (<=200); Estimated GFR (African America >60 (>=60 mL/min/1.73m^2); Estimated GFR (Non-African Ame >60 (>=60 mL/min/1.73m^2); Globulin 3.9 g/dL; Glucose 100 mg/dL (74-106); HDL Cholesterol 68 mg/dL (40-60); Potassium 4.0 mmol/L (3.5-5.1); Sodium 144 mmol/L (136-145); Thyroid Stimulating Hormone 1.580 uIU/mL (0.358-3.740); Total Protein 7.5 g/dL (6.4-8.2); Triglycerides 89 mg/dL (<=150); VLDL CHOLESTEROL 17.8 mg/dL
[2025-01-20 12:06] LABS: Glucose Urine UA NEGATIVE (NEGATIVE)
== END 2025-01-20 10:47 | disposition home or self-care (01) ==
PROVIDERS: PCP Nurse Practitioner; Visit Provider Nurse Practitioner
DX: R60.0 Localized edema (principal); I10 Essential (primary) hypertension; K21.9 Gastro-esophageal reflux disease without esophagitis; E66.01 Morbid (severe) obesity due to excess calories; R73.03 Prediabetes; E78.2 Mixed hyperlipidemia; F41.9 Anxiety disorder, unspecified; F32.A Depression, unspecified
CPT/HCPCS: 36415; 80053; 80061; 81003; 82043; 82570; 83036; 84443; 85025

== ENCOUNTER 2025-04-09 11:01 | Outpatient (OUT) | payer OTHER, SELFPAY ==
--- OUTSIDE RECORDS SUMMARY | 2025-04-09 11:05 | XMS_ITS | Encounter Summary ---
Author Organization [facility] Address [address] [facility] [place] [address] Care Team Providers Care Football Pad Repairer Name Role Phone Jef Wooten MD Primary Care Provider [phone] Encounter Details Date Type Department Care Team (Late st Contact Info) Description 11/15/2023 Orders Only [facility] [address] [place] [phone] Aida Chaves, ROCKY [address] [place] [address] Social History Tobacco Use Types Packs/Day Years Used Date Smoking Tobacco: Never Smokeless Tobacco: Never Alcohol Use Standard Drinks/Week Comments Never 0 (1 standard drink = 0.6 oz pur e alcohol) Humiliation, Afraid, Rape, and Kick questionnair e Answer Date Recorded Within the last year, have y ou been afraid of your partner or ex-partner? No 08/01/2023 Within the last year, have y ou been humiliated or emotionally abused in other ways by your partner or ex-partner? No Within the last year, have y ou been kicked, hit, slapped, or otherwise physically hurt by your partner or ex-partner? No 08/01/2023 Within the last year, have y ou been raped or forced to have any kind of sexual activity by your partner or ex-partner? No 08/01/2023 Social Connection and Isolation Panel [NHANES] A nswer Date Recorded In a typical week, how many times do you talk on the phone with family, friends, or neighbors? Twice a week 08/01/2023 How often do you get together with friends or re latives? Once a week 08/01/2023 How often do you attend episcopal or denominational serv ices? Never 08/01/2023 Do you belong to any clubs o r organizations such as episcopal groups, unions, fraternal or athletic groups, or school groups? No 08/01/2023 How often do you attend meet ings of the clubs or organizations you belong to? Never 08/01/2023 Are you , , di vorced, , never , or living with a partner? 08/01/2023 AUDIT-C Answer Date Recorded Q1: How often do you have a drink containing alcohol? Monthly or less 08/01/2023 Q2: How many drinks containi ng alcohol do you have on a typical day when you are drinking? Patient does not drink Q3: How often do you have si x or more drinks on one occasion? Never 08/01/2023 Overall Financial Resource Strain (CARDIA) Answe r Date Recorded How hard is it for you to pa y for the very basics like food, housing, medical care, and heating? Somewhat hard 08/01/2023 PHQ-2 Answer Date Recorded Patient Health Questionnaire-2 Score 2 08/02/2023 [facility] Health - Occupational Stress Questionnaire Answer Date Recorded Do you feel stress - tense, restless, nervous, or anxious, or unable to sleep at night because your mind is troubled all the time - these days? To some extent 08/01/2023 Exercise Vital Sign Answer Date Recorde d On average, how many days pe r week do you engage in moderate to strenuous exercise (like a brisk walk)? 0 days 08/01/2023 On average, how many minutes do you engage in exercise at this level? 0 min 08/01/2023 Hunger Vital Sign Answer Date Recorded Within the past 12 months, y ou worried that your food would run out before you got the money to buy more. Never true 08/01/19 24 Within the past 12 months, t he food you bought just didn't last and you didn't have money to get more. Never true 08/01/2023 PRAPARE - Transportation Answer Date Re corded In the past 12 months, has l ack of transportation kept you from medical appointments or from getting medications? No 07/06 In the past 12 months, has l ack of transportation kept you from meetings, work, or from getting things needed for daily living? No 08/01/2023 Housing Stability Vital Sign Answer Norman e Recorded In the last 12 months, was t here a time when you were not able to pay the mortgage or rent on time? Patient refused 08/01/19 24 Number of Places Lived in the Last Year Not on f ile 08/01/2023 In the last 12 months, was t here a time when you did not have a steady place to sleep or slept in a mcfp (including now)? No 08/01/2023 Comments Unknown Sex and Gender Information Value Date Recorded Sex Assigned at Not on file Legal Sex Female 6:36 PM EDT Gender Identity Not on file Sexual Orientation Not on file documented as of this encounter Plan of Treatment Upcoming Encounters Date Type Department Care Team (Late st Contact Info) Description 09/26/2025 1:00 PM EDT Office Visit [facility] [address] [place] [address] Phil Shane DO [address] [facility] [place] [address] documented as of this encounter Procedures Procedure Name Priority Date/Time Associated Diagnosis Comments MM SCREENING MAMM WITH 3D JOSE GUADALUPE - US AND ADDITIONAL Routine 11/12/2023 10:02 AM EDT documented in this encounter Results * MM SCREENING MAMM WITH 3D JOSE GUADALUPE - US AND ADDITIONAL (11/12/2023 10:02 AM EDT) Anatomical Region Laterality Modality Radiographic Kaleigh ging us Aida Chaves CABLE SUPERVISOR IMG XR PROCEDURES Final Result documented in this encounter Visit Diagnoses Not on filedocumented in this encounter Care Teams Football Pad Repairer Relationship Specialty Start Date End Date Jef Wooten MD PCP - General Family Medicine 07/28/23 documented as of this encounter
--- OUTSIDE RECORDS SUMMARY | 2025-04-09 11:05 | XMS_ITS | Encounter Summary ---
Author Organization [facility] Address [address] [place] [address] Care Team Providers Care Medical Imaging Technologist Name Role Phone Jef Wooten MD Primary Care Provider [phone] Encounter Details Date Type Department Care Team (Late st Contact Info) Description 11/15/2023 Clinisync Result Encounter [facility] External Department Unsolicited Provider, Generic External Data Social History Tobacco Use Types Packs/Day Years [...] week 08/01/2023 How often do you attend druze or church serv ices? Never 08/01/2023 Do you belong to any clubs o r organizations such as druze groups, unions, fraternal or athletic groups, or [...] Recorded Patient Health Questionnaire-2 Score 2 08/02/2023 [facility] of Occupat ional Health - Occupational Stress [...] or rent on time? Patient refused 08/01/19 Number of Places Lived in the Last [...] Description 09/26/2025 1:00 PM EDT Office Visit [facility] [address] [place] [address] Phil Shane DO [address] [facility] [address] [facility] [address] [place], [place] [phone] documented as of this encounter Procedures Procedure Name Priority Date/Time Associated Diagnosis Comments MM TOMOSYNTHESIS SCREENING BI 11/15/2023 9:48 AM EDT documented in this encounter Results * MM TOMOSYNTHESIS SCREENING BI (11/15/2023 9:48 AM EDT) Anatomical Region Laterality Modality Other 11/15/2023 9:48 AM EDT Narrative 11/15/2023 9:50 AM EDT The [address] [address] Mammography Report Signed Patient: LAVERNE ROCA MR#: [id number] : 1980 Acct:[id number] Age/Sex: 43 / F ADM Date: 11/12/23 Loc: MAMMO Attending Dr: Phil Shane D.O. Ordering Physician: Phil Shane D.O. Results: Date of Service: 11/12/23 Follow Up: Procedure(s): MM tomosynthesis screening BI Accession Number(s): [id number] cc: Aida Chaves NP; Phil Shane D.O. Patient Name: LAVERNE ROCA MR#: [id number] : 1980 Exam Date: 11/12/2023 Ordering Doctor: DR Phil Shane . RADIOLOGY REPORT PROCEDURE: MM TOMOSYNTHESIS SCREENING BI COMPARISON: None. INDICATIONS: screening Calculator Name NCI Breast Cancer Risk Assessment Tool 5 Year Breast Cancer Risk 0.90% Lifetime Breast Cancer Risk 10.70% Personal Breast Cancer No Personal Ovarian Cancer No Treatments None Family Cancers Father with colon cancer at age 75; Father with throat cancer at age 69. LOCATION: [facility] BREAST COMPOSITION: There are scattered areas of fibroglandular density. FINDINGS: DIAGNOSTIC CATEGORY 1--NEGATIVE. NO CHANGE FROM COMPARISON ASSESSMENT. Scattered benign-appearing calcifications are present. Scattered benign-appearing lymph nodes are present. RIGHT BREAST: No significant suspicious finding. LEFT BREAST: No significant suspicious finding. RECOMMENDATIONS: ROUTINE MAMMOGRAM AND CLINICAL EVALUATION IN 12 MONTHS. PLEASE NOTE: A NORMAL MAMMOGRAM DOES NOT EXCLUDE THE POSSIBILITY OF BREAST CANCER. A CLINICALLY SUSPICIOUS PALPABLE LUMP SHOULD BE BIOPSIED. Dictated by: Bismark Clay MD on 11/15/2023 at 09:47 Approved by: Bismark Clay MD on 11/15/2023 at 09:48 Dictated By: Bismark Clay M.D. Signed By: 11/15/23 0950 DD/ 0948 TD/TT: Manager File: Procedure Note Radiology, Radiologist, MD - 11/15/2023 [place] [address] Mammography Report Signed Patient: LAVERNE ROCA LMR#: [id number] : 1980Acct:[id number] Age/Sex: 43 / FADM Date: 11/12/23 Loc: MAMMO Attending Dr: Phil Shane D.O. Ordering Physician: Phil Shane D.O.Results: Date of Service: 11/12/23Follow Up: Procedure(s): MM tomosynthesis screening BI Accession Number(s): [id number] cc: Aida Chaves NP; Phil Shane D.O. Patient Name: LAVERNE ROCA MR#: [id number] : 1980 Exam Date: 11/12/2023 Ordering Doctor: DR Phil Shane . RADIOLOGY REPORT PROCEDURE: MM TOMOSYNTHESIS SCREENING BI COMPARISON: None. INDICATIONS: screening Calculator Name NCI Breast Cancer Risk Assessment Tool 5 Year Breast Cancer Risk 0.90% Lifetime Breast Cancer Risk 10.70% Personal Breast Cancer No Personal Ovarian Cancer No Treatments None Family Cancers Father with colon cancer at age 75; Father with throat cancer at age 69. LOCATION: [facility] BREAST COMPOSITION: There are scattered areas of fibroglandulardensity. FINDINGS: DIAGNOSTIC CATEGORY 1--NEGATIVE. NO CHANGE FROM COMPARISON ASSESSMENT. Scattered benign-appearing calcifications are present. Scattered benign-appearing lymph nodes are present. RIGHT BREAST: No significant suspicious finding. LEFT BREAST: No significant suspicious finding. RECOMMENDATIONS: ROUTINE MAMMOGRAM AND CLINICAL EVALUATION IN 12 MONTHS. PLEASE NOTE: A NORMAL MAMMOGRAM DOES NOT EXCLUDE THE POSSIBILITY OFBREAST CANCER. A CLINICALLY SUSPICIOUS PALPABLE LUMP SHOULD BE BIOPSIED. Dictated by: Bismark Clay MD on 11/15/2023 at 09:47 Approved by: Bismark Clay MD on 11/15/2023 at 09:48 Dictated By: Bismark Clay M.D. Signed By:11/15/2350 DD/ TD/TT: Manager File: Generic External Data Provider [facility] Final Result documented in this encounter Visit Diagnoses Not on filedocumented in this encounter Care Teams Medical Imaging Technologist Relationship Specialty Start Date End Date Jef Wooten MD PCP - General Family Medicine 07/28/23 documented as of this encounter
--- OUTSIDE RECORDS SUMMARY | 2025-04-09 11:05 | XMS_ITS | Encounter Summary ---
Author Organization [facility] Address [address] [facility] [place] [address] Care Team Providers Care Direct Sales Professional Name Role Phone Jef Wooten MD Primary Care Provider Encounter Details Date Type Department Care Team (Late st Contact Info) Description 10/14/2023 [facility] [address] [place] [address] Aida Chaves, ROCKY [address] [place] [address] Social History Tobacco Use Types Packs/Day Years [...] week 08/01/2023 How often do you attend jew or yazdanism serv ices? Never 08/01/2023 Do you belong to any clubs o r organizations such as jew groups, unions, fraternal or athletic groups, or [...] Recorded Patient Health Questionnaire-2 Score 2 08/02/2023 [facility] of Occupat ional Health - Occupational Stress [...] place to sleep or slept in a care home (including now)? No 08/01/2023 Comments Unknown Sex [...] EDT Office Visit [facility] [address] [place] [address] Phil Shane DO [address] [facility] [address] [place], [place] [id number] documented as of this encounter Procedures Procedure Name Priority Date/Time Associated Diagnosis Comments SCANNED LABS Routine 10/14/2023 8:15 AM EDT documented in this encounter Results * SCANNED LABS (10/14/2023 8:15 AM EDT) us Aida Chaves BELLSTAND ATTENDANT LAB CHG PERFORMABLES Final Resu lt documented in this encounter Visit Diagnoses Not on filedocumented in this encounter Care Teams Direct Sales Professional Relationship Specialty Start Date End Date Jef Wooten MD PCP - General Family Medicine 07/28/23 documented as of this encounter
--- OUTSIDE RECORDS SUMMARY | 2025-04-09 11:05 | XMS_ITS | Encounter Summary ---
Author Organization [facility] Address [address] [place] [address] Care Team Providers Care Roof Panel Hanger Name Role Phone Jef Wooten MD Primary Care Provider [phone] Encounter Details Date Type Department Care Team (Late st Contact Info) Description 10/05/2024 Orders Only [facility] [address] [place] [address] Matilda Lucas LPN [address] [facility] [place] [address] Social History Tobacco Use Types Packs/Day Years [...] week 08/01/2023 How often do you attend gnosticist or sabianist serv ices? Never 08/01/2023 Do you belong to any clubs o r organizations such as gnosticist groups, unions, fraternal or athletic groups, or [...] Recorded Patient Health Questionnaire-2 Score 2 08/02/2023 [facility] of Occupat ional Health - Occupational Stress [...] place to sleep or slept in a correction (including now)? No 08/01/2023 Comments No Sex and Gender Information Value Date Recorded Sex Assigned at Not on file Legal Sex Female 6:36 PM EDT Gender Identity Not on file Sexual Orientation Not on file documented as of this encounter Plan of Treatment Upcoming Encounters Date Type Department Care Team (Late st Contact Info) Description 09/26/2025 1:00 PM EDT Office Visit [facility] [address] [facility] [facility] [place] [address] Phil Shane DO [address] [facility] [place] [address] documented as of this encounter Procedures Procedure Name Priority Date/Time Associated Diagnosis Comments PAP SMEAR Routine 09/20/2024 12:00 AM EDT documented in this encounter Results * Pap Smear (09/20/2024 12:00 AM EDT) Swab Cervical swab / Unknown us Phil Shane DO LAB CYTOLOGY ORDERABLES Final Re sult EXTERNAL LAB documented in this encounter Visit Diagnoses Not on filedocumented in this encounter Care Teams Roof Panel Hanger Relationship Specialty Start Date End Date Jef Wooten MD PCP - General Family Medicine 07/28/23 documented as of this encounter
--- OUTSIDE RECORDS SUMMARY | 2025-04-09 11:06 | XMS_ITS | Encounter Summary ---
Author Organization [facility] Address [address] [facility] [place] [address] Care Team Providers Care Dealer Support Technician Name Role Phone Jef Wooten MD Primary Care Provider [phone] Encounter Details Date Type Department Care Team (Late st Contact Info) Description 08/01/2023 Abstract [facility] [address] [address] Aida Chaves, ROCKY [address] [place] [address] Social History Tobacco Use Types Packs/Day Years Used Date Smoking Tobacco: Never Smokeless Tobacco: Never Tobacco Cessation:Counseling Given: Not Answered Alcohol Use Standard Drinks/Week Comments Never 0 [...] week 08/01/2023 How often do you attend episcopalian or amish serv ices? Never 08/01/2023 Do you belong to any clubs o r organizations such as episcopalian groups, unions, fraternal or athletic groups, or [...] Recorded Patient Health Questionnaire-2 Score 2 08/02/2023 [facility] - Occupational [...] place to sleep or slept in a [place] facility (including now)? No 08/01/2023 Comments Unknown Sex and Gender Information Value Date Recorded Sex Assigned at Not on file Legal Sex Female 6:36 PM EDT Gender Identity Not on file Sexual Orientation Not on file documented as of this encounter Functional Status * Audit-C Score Answer Date of Assessment Author 1 08/01/2023 1:05 PM EST Mychart, Generic * Q1: How often do you have a drink containing alcohol? Answer Date of Assessment Author Monthly or less 08/01/2023 1:05 PM EST Mychart, Generic * Q2: How many drinks containing alcohol do you have on a typical day when you are drinking? Answer Date of Assessment Author Patient does not drink 08/01/2023 1:05 PM EST My chart, Generic * Q3: How often do you have six or more drinks on one occasion? Answer Date of Assessment Author Never 08/01/2023 1:05 PM EST Mychart, Generic * Over the past 2 weeks, how often have you been bothered by any of the following problems? Question Answer Date of Assessment Author Little interest or pleasure in doing things Several days 08/02/2023 11:27 AM Roberta Kemp MA Feeling down, depressed, or hopeless Several days 08/02/2023 11:27 AM Leonor Kemp MA Patient Health Questionnaire-2 Score 2 08/02/2023 11:27 AM Amie Kemp MA * If you checked off any problems on this questionnaire so far, Question Answer Date of Assessment Author How difficult have these problems made it for you to do your work, take care of things at home, or get along with other people? Somewhat difficult 08/02/2023 11:27 AM Leonor Kemp MA documented as of this encounter Plan of Treatment Upcoming Encounters Date Type Department Care Team (Late st Contact Info) Description 09/26/2025 1:00 PM EDT Office Visit [facility] [address] [place] [address] Phil Shane DO [address] [place] [address] documented as of this encounter Visit Diagnoses Not on filedocumented in this encounter Care Teams Dealer Support Technician Relationship Specialty Start Date End Date Jef Wooten MD PCP - General Family Medicine 07/28/23 documented as of this encounter
--- OUTSIDE RECORDS SUMMARY | 2025-04-09 11:06 | XMS_ITS | Clinical Summary ---
Author Organization [facility] Address [id number] [address] [place] [address] Care Team Providers Care Resin Remover Name Role Phone Unavailable Primary Care Provider [...] ID:Not on file Type:Not on file Address: [place] [id number]
--- OUTSIDE RECORDS SUMMARY | 2025-04-09 11:06 | XMS_ITS | Encounter Summary ---
Author Organization [facility] Address [address] [place] [address] Care Team Providers Care Information Systems Security Developer Name Role Phone Jef Wooten MD Primary Care Provider [phone] Encounter Details Date Type Department Care Team (Late st Contact Info) Description 02/28/2024 [facility] [address] [place] [address] Jef Wooten MD [address] [place] [address] Social History Tobacco Use Types Packs/Day Years [...] week 08/01/2023 How often do you attend baptist or adventism serv ices? Never 08/01/2023 Do you belong to any clubs o r organizations such as baptist groups, unions, fraternal or athletic groups, or [...] Recorded Patient Health Questionnaire-2 Score 2 08/02/2023 [facility] - Occupational Stress Questionnaire Answer Date Recorded [...] place to sleep or slept in a intermediate (including now)? No 08/01/2023 Comments Unknown Sex and Gender Information Value Date Recorded Sex Assigned at Not on file Legal Sex Female 6:36 PM EDT Gender Identity Not on file Sexual Orientation Not on file documented as of this encounter Plan of Treatment Upcoming Encounters Date Type Department Care Team (Late st Contact Info) Description 09/26/2025 1:00 PM EDT Office Visit [facility] [address] [place] [id number] Phil Shane DO [address] [place], [place] [id number] documented as of this encounter Visit Diagnoses Not on filedocumented in this encounter Care Teams Information Systems Security Developer Relationship Specialty Start Date End Date Jef Wooten MD PCP - General Family Medicine 07/28/23 documented as of this encounter
--- OUTSIDE RECORDS SUMMARY | 2025-04-09 11:06 | XMS_ITS | Clinical Summary ---
Author Organization [facility] Healthcare Address [address] [place] [address] Care Team Providers Care [employer] Ump[employer] Name Role Phone Jef Wooten MD Primary Care Provider [phone] Allergies Active Allergy Reactions Criticality Noted Date Comments Bee Venom 01/13/2023 Other Reaction(s): Unknown Metronidazole Other,GI intolerance 07/28/2023 Skin bright red felt like on fire Penicillin G 01/13/2023 Other Reaction(s): swelling, hives Sulfa Antibiotics 01/13/2023 Other Reaction(s): swelling, hives Medications Ubrogepant (Ubrelvy) 100 MG tabletIndications: Chronic migraine without aura without status migrainosus, not intractable 1 tablet at the onset of migraine AVALOS, may repeat in 2 hours if needed. No more than 2 pills in 24 hours, no more than 4 pills per week 15 tablet 2 3 Active dibucaine (Nupercainal) 1 % ointmentIndication s:Anal or rectal pain APPLY TO THE AFFECTED AREA(S) topically TWICE DAILY 56 g 2 4 Active buPROPion XL (Wellbutrin XL) 150 MG 24 hr tabletIndications: Anxiety and depression Take 1 tablet (150 mg) by mouth Daily 90 tablet 1 5 Active furosemide (Lasix) 20 MG tabletIndications: Edema, lower extremity Take 1 tablet (20 mg) by mouth Daily 90 tablet 1 5 Active atorvastatin (Lipitor) 10 MG tabletIndications: Mixed hyperlipidemia Take 1 tablet (10 mg) by mouth in the evening 90 tablet 5 04/22/20 25 Active amLODIPine (Norvasc) 10 MG tabletIndications: Primary hypertension Take 1 tablet (10 mg) by mouth Daily 90 tablet 1 5 05/13/20 25 Active Cariprazine HCl (Vraylar) 1.5 MG capsuleIndications :Anxiety and depression Take 1 capsule by mouth Daily 90 capsule 1 5 05/13/20 25 Active carvedilol (Coreg) 3.125 MG tabletIndications: Primary hypertension Take 1 tablet (3.125 mg) by mouth in the morning and 1 tablet (3.125 mg) before bedtime. 180 tablet 1 5 05/13/20 25 Active escitalopram (Lexapro) 20 MG tabletIndications: Anxiety and depression Take 1 tablet (20 mg) by mouth in the morning. 90 tablet 1 5 05/13/20 25 Active lisinopril-hydroCH LOROthiazide 20-12.5 MG tabletIndications: Primary hypertension Take 1 tablet by mouth in the morning and 1 tablet before bedtime. 180 tablet 1 5 05/13/20 25 Active pantoprazole (ProtoNix) 40 MG EC tabletIndications: Gastroesophageal reflux disease, unspecified whether esophagitis present Take 1 tablet (40 mg) by mouth in the morning and 1 tablet (40 mg) before bedtime. 180 tablet 1 5 05/13/20 25 Active semaglutide (Ozempic, 1 MG/DOSE,) 4 MG/3ML solution pen-injectorIndica tions:Pre-diabetes Inject 1 mg under the skin every 7 (seven) days 9 mL 1 5 05/07/20 25 Active traZODone (Desyrel) 150 MG tabletIndications: Primary insomnia Take 2 tablets (300 mg) by mouth at bedtime 180 tablet 1 5 05/13/20 25 Active busPIRone (Buspar) 10 MG tabletIndications: Anxiety and depression Take 2 tablets (20 mg) by mouth in the morning and 2 tablets (20 mg) before bedtime. 120 tablet 2 5 Active Active Problems Problem Noted Date Diagnosed Date Mucocele of mouth 11/30/2024 Assessment & Plan (11/30/2024 8:25 AM EDT): New dentures in the last 3 months, has a lump to lower gum line, very tender, increasing jaw pain, and called denist, cannot get in until: 12/12/24 I examined the area, it looks to be more of a mucocele, no purulent drainage noted Will cover with atb Morbid (severe) obesity due to excess calories 0 08/30/2024 Assessment & Plan (02/12/2025 6:43 AM EDT): Discussed with patient their BMI (actual, verses recommended). We have also discussed lifestyle modifications: attempts to perform physical activity as chronic conditions allow, also to monitor dietary intake: increasing protein/fruits/veggies and lowering carb intake (unless contraindicated). Limit sodas, juices, and sugary drinks. Has been taking Ozempic Assessment & Plan (08/30/2024 7:05 AM EST): Discussed with patient their BMI (actual, verses recommended). We have also discussed lifestyle modifications: attempts to perform physical activity as chronic conditions allow, also to monitor dietary intake: increasing protein/fruits/veggies and lowering carb intake (unless contraindicated). Limit sodas, juices, and sugary drinks. Has been taking Ozempic Nausea 04/25/2024 Metabolic syndrome 03/13/2024 Assessment & Plan (08/30/2024 7:09 AM EST): Continue risk factor modification, treatment of chronic conditions Other hemorrhoids 02/09/2024 Family history of premature CAD 11/04/2023 Assessment & Plan (11/04/2023 3:25 PM EDT): Calcium score test at Pre-diabetes 11/04/2023 Assessment & Plan (02/12/2025 6:43 AM EDT): Check blood sugars daily, notify if <70 or >200. Take medications (pills or insulin) as directed. Monitor for s/s of hypoglycemia (sweaty, dizziness, nausea, vomiting, or shakiness). Watch for increase in thirst, urination, or appetite. Inspect feet frequently monitoring for open wounds , and also recommend yearly eye exam. Pt should attempt to remain as physically active as chronic conditions allow, as well as trying to follow a diet low in carbohydrates, and simple sugars. Could not tolerate metformin d/t diarrhea Current meds: ozempic, statin, asia A1c: Assessment & Plan (08/30/2024 1:56 PM EST): Dose take ozempic for her diabetes, cannot tolerate metformin d/t diarrhea Doing well with weight loss A1c 5.2 Assessment & Plan (04/03/2024 4:55 PM EDT): Weight has stabilized, will trial an increase ozempic to 1mg Assessment & Plan (12/29/2023 4:24 PM EDT): Doing well on ozempic, 20 pounds lost Keep up good work Assessment & Plan (11/04/2023 3:25 PM EDT): Has trouble with diarrhea regularly Will trial ozempic #1 sample given: [id number], exp 01/01/2025 Diarrhea 10/13/2023 MARCK (obstructive sleep apnea) 08/23/2023 Assessment & Plan (02/12/2025 6:42 AM EDT): You have a diagnosis of obstructive sleep apnea. It is recommended that you wear your PAP device any time while in bed sleeping. Not using the PAP device can increase your risk of elevated/uncontrolled high blood pressure, atrial fibrillation, heart attack, stroke, or sudden . Never got PAP machine Assessment & Plan (08/30/2024 1:57 PM EST): You have a diagnosis of obstructive sleep apnea. It is recommended that you wear your PAP device any time while in bed sleeping. Not using the PAP device can increase your risk of elevated/uncontrolled high blood pressure, atrial fibrillation, heart attack, stroke, or sudden . Never got PAP machine, however has lost 50 pounds Assessment & Plan (04/03/2024 4:54 PM EDT): Needs titration study Assessment & Plan (12/29/2023 4:20 PM EDT): Never went to have PAP Assessment & Plan (11/04/2023 3:23 PM EDT): Continue with PAP Insomnia 08/23/2023 Assessment & Plan (08/30/2024 7:03 AM EST): Takes trazodone at HS Assessment & Plan (12/29/2023 4:22 PM EDT): Continue trazodone Tricuspid regurgitation 08/23/2023 Secondary pulmonary arterial hypertension 2023 Assessment & Plan (08/30/2024 7:04 AM EST): Per ECHO findings Gastroesophageal reflux dise ase, unspecified whether esophagitis present 08/23/2023 Assessment & Plan (02/12/2025 6:42 AM EDT): Recommendations: freq small meals, nothing to eat or drink at least 2 hours prior to bed, limit caffeine, alcohol, as well as spicy foods Meds to limit or avoid if possible: NSAIDS Elevate HOB if possible Current meds: pantoprazole Assessment & Plan (08/30/2024 7:04 AM EST): Recommendations: freq small meals, nothing to eat or drink at least 2 hours prior to bed, limit caffeine, alcohol, as well as spicy foods Meds to limit or avoid if possible: NSAIDS Elevate HOB if possible Current meds: pantoprazole Assessment & Plan (12/29/2023 4:23 PM EDT): Continue PPI Screening mammogram for breast cancer 08/02/2023 Body mass index (BMI) 50.0-59.9, adult HLD (hyperlipidemia) 08/02/2023 Overview (08/02/2023): labs: 01/12/22: TC 236 HDL 65 Trigs 106 [id number] Assessment & Plan (02/12/2025 6:44 AM EDT): On statin therapy Check labs yearly and prn dose changes Assessment & Plan (08/30/2024 7:09 AM EST): Check labs Assessment & Plan (08/02/2023 12:02 PM EST): Check labs HTN (hypertension) 08/02/2023 Assessment & Plan (02/12/2025 6:42 AM EDT): Please check blood pressure daily and record DASH diet Limit caffeine Take medication as directed Contact office if chest pain, pressure, dizziness, shortness of breath, swelling legs Recommend slow position changes Current meds: carvedilol, asia/hydrochlorothiazide Assessment & Plan (08/30/2024 7:04 AM EST): Please check blood pressure daily and record DASH diet Limit caffeine Take medication as directed Contact office if chest pain, pressure, dizziness, shortness of breath, swelling legs Recommend slow position changes Current meds: carvedilol, asia/hydrochlorothiazide Assessment & Plan (04/03/2024 4:54 PM EDT): At goal , no med dose chagnes Assessment & Plan (12/29/2023 4:23 PM EDT): No changes to current meds Recommend physical activity and weight loss Assessment & Plan (11/04/2023 3:22 PM EDT): No changes to current meds Recommend physical activity and weight loss Assessment & Plan (08/02/2023 12:01 PM EST): No changes to current meds Check labs Recommend physical activity and weight loss Abnormal weight gain 08/02/2023 Assessment & Plan (08/02/2023 12:02 PM EST): Stressors, lack of physical activity as well Check labs Edema, lower extremity 07/02/2023 Assessment & Plan (02/12/2025 6:42 AM EDT): Limit sodium, elevate legs, compression stockings Takes lasix as well Assessment & Plan (08/30/2024 7:05 AM EST): Limit sodium, elevate legs, compression stockings Takes lasix as well Assessment & Plan (04/03/2024 4:55 PM EDT): stable Assessment & Plan (02/21/2024 4:12 PM EDT): >>ASSESSMENT AND PLAN FOR LOWER EXTREMITY EDEMA WRITTEN ON 08/02/2023 12:01 PM BY AIDA CHAVES NP Stable with diuretics as well as compression stockings Assessment & Plan (02/21/2024 4:12 PM EDT): >>ASSESSMENT AND PLAN FOR LOWER EXTREMITY EDEMA WRITTEN ON 12/29/2023 4:23 PM BY AIDA CHAVES NP stable Anxiety and depression 06/29/2023 Overview (08/30/2024): Med agreement: signed 08/30/24 Assessment & Plan (02/12/2025 12:43 PM EDT): Current meds: buproprion, buspar, vraylar, lexapro, and trazodone Feels needs something more for her anxiety, I will increase her buspar to 20mg BID Fu in 8 weeks Recommend counseling, is going through work employer transition and insurance, will discuss at fu appt Assessment & Plan (08/30/2024 1:55 PM EST): PHQ 9=3 JESUS 7=5 Current meds: xanax prn, buproprion, buspar, vraylar, lexapro, and trazodone Assessment & Plan (04/03/2024 4:56 PM EDT): Stable no med dose changes Needs a refill on xanax [place] reviewed Assessment & Plan (12/29/2023 4:24 PM EDT): Stable on meds, doing well No med changes will need refill of PRN xanax [place]AR[place] reveiwed Assessment & Plan (11/04/2023 3:23 PM EDT): Doing better, wants to continue current meds No changes Assessment & Plan (08/02/2023 12:04 PM EST): School stress, work stress Weight gain, still uses prn xanax has one left from last fill [place] reviewed Will take vraylar back to 1.5mg Recommend counseling, she cannot currently afford it, and does not have time Will try to incorporate 2 days per week for a hour each to do something for her self Recommend meditation once a day for 20 minutes as well Chronic migraine without aur a without status migrainosus, not intractable 06/17/2023 Constipation 01/13/2023 Equinus contracture of left ankle 01/13/2023 Resolved Problems Problem Noted Date Diagnosed Date Resolved Date Breast abscess 11/02/2024 02/12/2025 Assessment & Plan (11/02/2024 10:04 AM EDT): Right breast, recurrent, gets drainage out, no fever, chills, Dental infection 07/20/2024 02/12/2025 Anal or rectal pain 02/21/2024 02/13/20 25 Assessment & Plan (02/21/2024 4:13 PM EDT): Will refer to general surgeon, for further evaluation Possible internal hemorrhoids or anal fissure Chronic rectal pain 02/21/2024 02/21/20 24 Elevated glucose 10/21/2023 02/21/2024 URI, acute 10/13/2023 02/21/2024 Encounters Date Type Department Care Team Description 02/12/2025 11:30 AM EDT Office Visit [facility] [address] [place] [address] Aida Chaves NP Anxiety and depression (Primary Dx); MARCK (obstructive sleep apnea); Primary hypertension ; Gastroesophageal reflux disease, unspecified whether esophagitis present; Edema, lower extremity; Pre-diabetes; Morbid (severe) obesity due to excess calories ([facility]); Mixed hyperlipidemia ; Primary insomnia 02/12/2025 Bamboo flowsheet [facility] [address] [place] [address] Aida Chaves NP 02/12/2025 Travel 01/22/2025 Refill [facility] [address] [place] [address] Aida Chaves NP Mixed hyperlipidemia (Primary Dx) 01/20/2025 Clinisync Result Encounter [facility] External Department Unsolicited Aida Chaves NP 01/19/2025 Telephone [facility] [address] [place] [address] Jef Wooten MD from Last 3 Months Immunizations Immunization Administration Dates Next Due Influenza, seasonal, injectable 05/04/2024,04/15 Td (adult), 5 Lf tetanus tox oid, preservative free, adsorbed 04/27/2023,10/15/2012 Family History Medical History Relation Name Comments Cancer Father x 2 Heart disease Father Hypertension Father Selena's thyroiditis Mother Hypertension Mother Relation Name Status Comments Father Mother Social History Tobacco Use Types Packs/Day Years Used Date Smoking Tobacco: Never Smokeless Tobacco: Never Tobacco Cessation:Counseling Given: Not Answered Alcohol Use Standard Drinks/Week Comments Never 0 (1 standard drink = 0.6 oz pur e alcohol) [id number] Health Literacy Answer Date Recor ded How often do you need to hav e someone help you when you read instructions, pamphlets, or other written material from your doctor or pharmacy? Never 02/12/2025 Humiliation, Afraid, Rape, and Kick questionnair e Answer Date Recorded Within the last year, have y ou been afraid of your partner or ex-partner? No 02/12/2025 Within the last year, have y ou been humiliated or emotionally abused in other ways by your partner or ex-partner? No Within the last year, have y ou been kicked, hit, slapped, or otherwise physically hurt by your partner or ex-partner? No 02/12/2025 Within the last year, have y ou been raped or forced to have any kind of sexual activity by your partner or ex-partner? No 02/12/2025 Social Connection and Isolat ion Panel [NHANES] Answer Date Recorded In a typical week, how many times do you talk on the phone with family, friends, or neighbors? More than three times a week 02/12/2025 How often do you get togethe r with friends or relatives? Once a week 02/12/2025 How often do you attend chur or mandaeism services? Never 02/12/2025 Do you belong to any clubs o r organizations such as jainism groups, unions, fraternal or athletic groups, or school groups? No 02/12/2025 How often do you attend meet ings of the clubs or organizations you belong to? Never 02/12/2025 Are you , , di vorced, , never , or living with a partner? 02/12/2025 AUDIT-C Answer Date Recorded Q1: How often do you have a drink containing alc ohol? 2-4 times a month 02/12/2025 Q2: How many drinks containi ng alcohol do you have on a typical day when you are drinking? 1 or 2 02/12/2025 Q3: How often do you have si x or more drinks on one occasion? Never 02/12/2025 Overall Financial Resource Strain (CARDIA) Answe r Date Recorded How hard is it for you to pa y for the very basics like food, housing, medical care, and heating? Patient declined 02/12/2025 PHQ-2 Answer Date Recorded Patient Health Questionnaire-2 Score 2 08/02/2023 [facility] [place] [facility] - Occupational Stress Questionnaire Answer Date Recorded Do you feel stress - tense, restless, nervous, or anxious, or unable to sleep at night because your mind is troubled all the time - these days? Not at all 02/12/2025 Exercise Vital Sign Answer Date Recorde d On average, how many days pe r week do you engage in moderate to strenuous exercise (like a brisk walk)? Patient declined On average, how many minutes do you engage in exercise at this level? Patient declined 02/12/2025 Hunger Vital Sign Answer Date Recorded Within the past 12 months, y ou worried that your food would run out before you got the money to buy more. Patient declined Within the past 12 months, t he food you bought just didn't last and you didn't have money to get more. Patient declined 05/2025 PRAPARE - Transportation Answer Date Re corded In the past 12 months, has l ack of transportation kept you from medical appointments or from getting medications? No 02/02 In the past 12 months, has l ack of transportation kept you from meetings, work, or from getting things needed for daily living? No 02/12/2025 Housing Stability Vital Sign Answer Norman e [...] place to sleep or slept in a half-way (including now)? No 08/01/2023 Housing Stability Vital Sign Answer Norman e Recorded In the last 12 months, was t here a time when you were not able to pay the mortgage or rent on time? No 02/12/2025 Number of Times Moved in the Last Year Not on fi le 02/12/2025 At any time in the past 12 m [facility], were you homeless or living in a half-way (including now)? No 02/12/2025 Comments No Sex and Gender Information Value Date Recorded Sex Assigned at Not on file Legal Sex Female 6:36 PM EDT Gender Identity Not on file Sexual Orientation Not on file Last Filed Vital Signs Vital Sign Reading Time Taken Comments Blood Pressure 116/84 02/12/2025 11:28 AM EDT Pulse 67 02/12/2025 11:28 AM EDT Temperature 36.7 C (98.1 F) 02/12/2025 11:28 AM EDT Respiratory Rate 18 02/12/2025 11:28 AM EDT Oxygen Saturation 98% 02/12/2025 11:28 AM EDT Inhaled Oxygen Concentration - - Weight 127 kg (280 lb) 02/12/2025 11:28 AM EDT Height 160 cm (5' 3 ) 04/03/2024 3:48 PM EDT Body Mass Index 49.6 04/03/2024 3:48 PM EDT Plan of Treatment Upcoming Encounters Date Type Department Care Team (Late st Contact Info) Description 09/26/2025 1:00 PM EDT Office Visit [facility] [address] [place] [address] Phil Shane, [address] [place] [address] Health Maintenance Due Date Last Done Comments CT Colonography 1979 FIT-DNA 1979 FIT 1979 FOBT 1979 Sigmoidoscopy 1979 Mammogram 11/14/2024 11/15/2023, 11/12/2023 Influenza Vaccine (#1) 2025 05/04/2024, 2021 Colonoscopy 02/28/2034 02/29/2024, 02/29/2024 Colorectal Cancer Screening 02/28/2034 HPV/Cotest Discontinued 06/17/2020 Cervical Cancer Screening Discontinued Pap Smear Discontinued 09/20/2024, 09/15/2023 Procedures Procedure Name Priority Date/Time Associated Diagnosis Comments TB MICROALB CREAT RATIO RANDOM Routine 01/20/2025 11:04 AM EDT TB UA (CLEAN/CATCH) MICROSCOPIC IF INDICATE Routine 01/20/2025 11:04 AM EDT ALL CBC WITH AUTO DIFF Routine 11:00 AM EDT ALL THYROID STIM HORMONE Routine 01/20/2025 11:00 AM EDT ALL LIPID PROFILE (FASTING) Routine 01/20/2025 11:00 AM EDT [facility] CMP (CMP) (FOR REMOTE [facility] USE) Routine 01/20/2025 11:00 AM EDT MLR HEMOGLOBIN A1C Routine 01/20/2025 11 :00 AM EDT PAP SMEAR Routine 09/20/2024 12:00 AM EDT MM TOMOSYNTHESIS SCREENING BI 11/15/2023 9:48 AM EDT Q - THINPREP(R) TIS AND HPV MRNA E6/E7 RFL HPV 16,18/45 Routine 06/17/2020 from Last 3 Months or Most Recently Relevant to Health Maintenance Results * TBH UA (CLEAN/CATCH) MICROSCOPIC IF INDICATE (01/20/2025 11:04 AM EDT) COLOR URINE LT. YELLOW YELLOW TBH CLARITY URINE CLEAR CLEAR TBH SPECIFIC GRAVITY URINE 1.010 1.005 - 1.025 TBH PH URINE 6.0 5.0 - 9.0 TBH PROTEIN URINE NEGATIVE NEG/TRACE mg/dL TBH GLUCOSE URINE UA NEGATIVE NEGATIVE mg/dL TBH BILIRUBIN URINE NEGATIVE NEGATIVE TBH KETONES URINE NEGATIVE NEGATIVE mg/dL TBH BLOOD URINE NEGATIVE NEGATIVE TBH NITRITE URINE NEGATIVE NEGATIVE TBH UROBILINOGEN URINE 0.2 0.2 - 1.0 EU/dL TBH LEUKOCYTE ESTERASE URINE NEGATIVE NEGATIVE TBH URINE MICROSCOPIC INDICATED NO TBH 01/20/2025 11:0 4 AM EDT 01/20/2025 11:06 AM EDT Narrative [facility] - 01/20/2025 12:07 PM EDT us Aida Chaves NP CL[facility] Final Result [facility] * TBH MICROALB CREAT RATIO RANDOM (01/20/2025 11:04 AM EDT) MICROALBUMIN URINE RANDOM <1.3 <=30.0 mg/dL TBH CREATININE URINE RANDOM 133.04 20.00 - 300.00 mg/dL TBH 01/20/2025 11:0 4 AM EDT 01/20/2025 11:06 AM EDT Narrative CLINISYNC - 01/20/2025 12:57 PM EDT Aida Chaves 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 [facility] MLR HEMOGLOBIN A1C (01/20/2025 11:00 AM EDT) GLYCOHEMOGLOBIN A1C 5.2 4.5 - 6.2 % TB Comment: ADA RECOMMENDED LIMIT 4.0 - 6.0 ADA THERAPEUTIC TARGET < 7.0 ACTION SUGGESTED > 7.0 ESTIMATED AVERAGE GLUCOSE 103 mg/dL TB 01/20/2025 11:0 0 AM EDT 01/20/2025 11:07 AM EDT Narrative CLINISYNC - 01/20/2025 12:00 PM EDT Aida Chaves NP CLINISYNC Final Result Performing Organization Address [facility] de Phone Number [facility] * [facility] CMP (CMP) (FOR REMOTE [facility] USE) (01/20/2025 11:00 AM EDT) SODIUM 144 136 - 145 mmol/L TBH POTASSIUM 4.0 3.5 - 5.1 mmol/L TBH CHLORIDE 105 98 - 107 mmol/L TBH CARBON DIOXIDE 28.7 21.0 - 32.0 mmol/L TBH ANION GAP 14.3 TBH GLUCOSE 100 74 - 106 mg/dL TB BLOOD UREA NITROGEN 12.0 7.0 - 18.0 mg/dL TBH CREATININE 0.86 0.55 - 1.02 mg/dL TBH TBH EGFR-AF LAO >60 >=60 mL/min/1. 73m 2 TBH TBH EGFR-NON AF LAO >60 >=60 mL/min/1. 73m 2 TB BUN CREATININE RATIO 14.0 TBH CALCIUM 9.2 8.5 - 10.1 mg/dL TBH BILIRUBIN TOTAL 0.4 0.2 - 1.0 mg/dL TBH ASPARTATE AMINO TRANSFERASE 16 15 - 37 U/L TB ALANINE AMINOTRANSFERASE 24 14 - 59 U/L TBH ALKALINE PHOSPHATASE 62 46 - 116 U/L TB TOTAL PROTEIN 7.5 6.4 - 8.2 g/dL TBH ALBUMIN LEVEL 3.6 3.4 - 5.0 g/dL TBH GLOBULIN 3.9 g/dL TBH ALBUMIN GLOBULIN RATIO 0.9 TBH 01/20/2025 11:0 0 AM EDT 01/20/2025 11:07 AM EDT Narrative CLINISYNC - 01/20/2025 12:02 PM EDT Aida Chaves NP CLINISYNC Final Result [facility] * ALL THYROID STIM HORMONE (01/20/2025 11:00 AM EDT) THYROID STIMULATING HORMONE 1.580 0.358 - 3.740 uIU/mL TB 01/20/2025 11:0 0 AM EDT 01/20/2025 11:07 AM EDT Narrative CLINISYNC - 01/20/2025 12:02 PM EDT Aida Chaves NP CLINISYNC Final Result Performing Organization Address [facility] Co de Phone Number [facility] * (ABNORMAL) ALL LIPID PROFILE (FASTING) (01/20/2025 11:00 AM EDT) TRIGLYCERIDES 89 <=150 mg/dL TB CHOLESTEROL 228(H) <=200 mg/dL TB HDL CHOLESTEROL 68(H) 40 - 60 mg/dL TB Comment: > or =60 mg/dl - LOW CARDIOVASCULAR RISK <40 mg/dl - HIGH CARDIOVASCULAR RISK LDL CHOLESTEROL CALCULATED 143.0 mg/dL TB Comment: <100 mg/dl OPTIMAL 100-129 mg/dl NEAR OR ABOVE OPTIMAL 130-159 mg/dl BORDERLINE HIGH 160-189 mg/dl HIGH >190 mg/dl VERY HIGH VLDL CHOLESTEROL 17.8 mg/dL TB CHOL HDL RATIO 3.4 TB Comment: 3.3 - 4.4 LOW RISK 4.4 - 7.1 AVERAGE RISK 7.1 - 11.0 MODERATE RISK >11.0 HIGH RISK 01/20/2025 11:0 0 AM EDT 01/20/2025 11:07 AM EDT Narrative [facility] - 01/20/2025 12:02 PM EDT us Aida Chaves [facility] Final Result [facility] * (ABNORMAL) ALL CBC WITH AUTO DIFF (01/20/2025 11:00 AM EDT) TB WBC 5.8 4.0 - 11.0 10 3/uL TBH TBH RBC 3.82(L) 4.20 - 5.40 10 6/uL TBH TBH HGB 11.6(L) 12.0 - 16.0 g/dL TBH TBH HCT 34.7(L) 36.0 - 48.0 % TBH TBH MCV 90.8 81.0 - 99.0 fL TBH TBH MCH 30.4 26.7 - 34.0 pg TBH TBH MCHC 33.4 29.9 - 35.2 g/dL TBH TBH RDW 12.9 11.0 - 15.0 % TBH TBH PLT 279 150 - 450 10 3/uL TBH TBH MPV 9.9 9.5 - 13.5 fL TBH NEUTROPHILS PERCENT AUTO 55.5 43.0 - 75.0 % TBH LYMPHOCYTES PERCENT AUTO 28.2 20.5 - 60.0 % TBH MONOCYTES PERCENT AUTO 9.0 1.7 - 12.0 % TBH TBH EO % 5.9 0.9 - 7.0 % TBH BASOPHILS PERCENT AUTO 0.9 0.2 - 2.0 % TBH IMMATURE GRANULOCYTES PCT AUTO 0.5 0.0 - 0.5 % TBH NEUTROPHILS ABSOLUTE AUTO 3.2 1.4 - 6.5 10 3/uL TBH LYMPHOCYTES ABSOLUTE AUTO 1.6 1.2 - 3.8 10 3/uL TBH MONOCYTES ABSOLUTE AUTO 0.5 0.3 - 0.8 10 3/uL TBH TBH EO # 0.3 0.0 - 0.7 10 3/uL TBH BASOPHILS ABSOLUTE AUTO 0.1 0.0 - 0.1 10 3/uL TBH IMMATURE GRANULOCYTES ABS AUTO 0.03 0.00 - 0.03 10 3/uL TBH 01/20/2025 11:0 0 AM EDT 01/20/2025 11:07 AM EDT Narrative CLINISYNC - 01/20/2025 12:03 PM EDT us Aida [place] F[employer] 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 [facility] Final Result [facility] * Pap Smear (09/20/2024 12:00 AM EDT) Swab Cervical swab / Unknown us Phil Shane DO LAB CYTOLOGY ORDERABLES Final Re sult Performing Organization Address City/[facility] Co de Phone Number EXTERNAL LAB * MM TOMOSYNTHESIS SCREENING BI (11/15/2023 9:48 AM EDT) Anatomical Region Laterality Modality Other 11/15/2023 9:48 AM EDT Narrative 11/15/2023 9:50 [place] [address] Mammography Report Signed Patient: CHAPARRITA ROCA MR#: [id number] : 1980 Acct:[id number] Age/Sex: 43 / F ADM Date: 11/12/23 Loc: MAMMO Attending Dr: Phil Shane D.O. Ordering Physician: Phil Shane D.O. Results: Date of Service: 11/12/23 Follow Up: Procedure(s): MM tomosynthesis screening BI Accession Number(s): [id number] cc: Aida Chaves FULL 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; Phil Shane D.O. Patient Name: CHAPARRITA ROCA MR#: [id number] : 1980 Exam Date: 11/12/2023 Ordering Doctor: [...] throat cancer at age 68. LOCATION: [facility] BREAST COMPOSITION: There are scattered areas [...] Signed By: 11/15/23 0950 DD/ 0948 TD/TT: Nurse Leader: Procedure Note Radiology, Radiologist, MD - 11/15/2023 [place] [address] Mammography Report Signed Patient: CHAPARRITA ROCA LMR#: [id number] : 1980Acct:[id number] Age/Sex: 43 / FADM Date: 11/12/23 Loc: MAMMO Attending Dr: Phil Shane D.O. Ordering Physician: Phil Shane D.O.Results: Date of Service: 11/12/23Follow Up: Procedure(s): MM tomosynthesis screening BI Accession Number(s): [id number] cc: Aida Chaves FULL 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; Phil Shane D.O. Patient Name: CHAPARRITA ROCA MR#: [id number] : 1980 Exam Date: 11/12/2023 Ordering Doctor: [...] throat cancer at age 68. LOCATION: [facility] BREAST COMPOSITION: There are scattered areas [...] 09:48 Dictated By: Bismark Clay M.D. Signed By:11/15/23 0950 DD/ TD/TT: Nurse Leader: us Generic External Data Provider [facility] Final Result * (ABNORMAL) Q - THINPREP(R) TIS AND HPV MRNA E6/E7 RFL HPV 16,18/45 (06/17/2020) CLINICAL INFORMATION: None given [facility] LMP: None given [facility] PREV. PAP: None given [facility] PREV. BX: None given [facility] SOURCE: None given [facility] STATEMENT OF ADEQUACY: SEE NOTE [facility] Comment: Satisfactory for evaluation. Endocervical/transformation zone component present. GENERAL CATEGORIZATION: EPITHELIAL CELL ABNORMALITY(A) [facility] INTERPRETATION/RES ULT: Atypical Squamous Cells of Undetermined Significance (ASC-US)(A) [facility] COMMENT: This Pap test has been evaluated with computer assisted technology. [facility] DIETETICS DIRECTOR: SEE NOTE NO [facility] Comment: DMK, CT(ASCP) CT screening location: [facility], [address] [place] [address], [place] [address]. PATHOLOGIST: SEE NOTE [facility] Comment: Liseth Montemayor M.D. Board Certified in Anatomic and Clinical Pathology (electronic signature) For questions regarding this report call Anatomic Pathology at [phone] COMMENT SEE NOTE [facility] Comment: EXPLANATORY NOTE: The Pap is a screening test for cervical cancer. It is not a diagnostic test and is subject to false negative and false positive results. It is most reliable when a satisfactory sample, regularly obtained, is submitted with relevant clinical findings and history, and when the Pap result is evaluated along with historic and current clinical information. HPV MRNA E6/E7 Not Detected Not Detected [facility] Comment: This test was performed using the APTIMA HPV Assay ([employer] This assay detects E6/E7 viral messenger RNA (mRNA) from 14 high-risk HPV types (16,18,31,33,35,39,45,51,52,56,58,59,66,68). The analytical performance characteristics of this assay have been determined by [employer]. The modifications have not been cleared or approved by the FDA. This assay has been validated pursuant to the CLIA regulations and is used for clinical purposes. 06/17/2020 Maggi Fowler [facility] Final Result [facility] Last 3 Months or Most Recently Relevant to Health Maintenance [place] [address] [place] [address] Care Teams [employer] U[employer] Relationship Specialty Start Date End Date Jef Wooten MD PCP - General Family Medicine 07/28/23
--- NOTE | 2025-04-09 11:08 | ECG_ITS ---
[facility] Test Date: 2025-04-09 Pat Name: CHAPARRITA BOWERS Department: Room: - Gender: Female Cadet Deck: : 1980 Requested By: BERNICE LIM Order Number: [id number] Reading MD: ADALGISA CORNELIUS M.D. Measurements Intervals [place] Rate: 64 P: 59 UT: 164 QRS: 14 QRSD: 94 T: 9 QT: 433 QTc: 447 Interpretive Statements SINUS RHYTHM LOW QRS VOLTAGE IN PRECORDIAL LEADS [QRS DEFLECTION < 1.0 mV IN CHEST LEADS] POSSIBLE RIGHT VENTRICULAR CONDUCTION DELAY [RSR (QR) IN V1/V2] Abnormal ECG Compared to ECG 08/28/2022 09:46:56 No significant changes Electronically Signed On 04-09-2025 18:28:42 EDT by ADALGISA CORNELIUS M.D.
--- OUTSIDE RECORDS SUMMARY | 2025-04-09 11:10 | XMS_ITS | CCD ---
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 Role Phone AICHHOLZ, ER REGISTRAR AIDA Primary Care Unavailable ARIA, NISH Consulting Unavailable ARIA, NISH Attending Unavailable ARIA, NISH Admitting Unavailable DEMARIO ., LU Attending Unavailable CATYEBER, DR TIM Dunaway Consulting Unavailable AICHHOLZ, ER REGISTRAR AIDA Primary Care Unavailable DEMARIO ., LU Admitting Unavailable DEMARIO ., LU Consulting Unavailable AICHHOLZ, ER REGISTRAR AIDA Attending Unavailable AICHHOLZ, ER REGISTRAR AIDA Admitting Unavailable AICHHOLZ, ER REGISTRAR AIDA Primary Care Unavailable AICHHOLZ, ER REGISTRAR AIDA Consulting Unavailable AICHHOLZ, ER REGISTRAR AIDA Primary Care Unavailable ACOSTA ., DR OLMEDO Consulting Unavailable ACOSTA ., DR OLMEDO Attending Unavailable ACOSTA ., DR OLMEDO Admitting Unavailable AICHHOLZ, ER REGISTRAR AIDA Primary Care Unavailable ACOSTA ., DR OLMEDO Admitting Unavailable ACOSTA ., DR OLMEDO Consulting Unavailable ACOSTA ., DR OLMDEO Attending Unavailable AICHHOLZ, ER REGISTRAR AIDA Primary Care Unavailable ACOSTA ., DR OLMEDO Admitting Unavailable ACOSTA ., DR OLMEDO Consulting Unavailable ACOSTA ., DR OLMEDO Attending Unavailable AICHHOLZ, ER REGISTRAR AIDA Consulting Unavailable AICHHOLZ, ER REGISTRAR AIDA Attending Unavailable AICHHOLZ, ER REGISTRAR AIDA Admitting Unavailable AICHHOLZ, ER REGISTRAR AIDA Primary Care Unavailable ZIEBER, DR TIM Dunaway Consulting Unavailable AICHHOLZ, ER REGISTRAR AIDA Consulting Unavailable AICHHOLZ, ER REGISTRAR AIDA Attending Unavailable AICHHOLZ, ER REGISTRAR AIDA Admitting Unavailable AICHHOLZ, ER REGISTRAR AIDA Primary Care Unavailable AICHHOLZ, ER REGISTRAR AIDA Attending Unavailable AICHHOLZ, ER REGISTRAR AIDA Admitting Unavailable AICHHOLZ, ER REGISTRAR AIDA Primary Care Unavailable AICHHOLZ, ER REGISTRAR AIDA Consulting Unavailable AICHHOLZ, ER REGISTRAR AIDA Attending Unavailable AICHHOLZ, ER REGISTRAR AIDA Admitting Unavailable AICHHOLZ, ER REGISTRAR AIDA Primary Care Unavailable AICHHOLZ, ER REGISTRAR AIDA Consulting Unavailable AICHHOLZ, ER REGISTRAR AIDA Primary Care Unavailable ACOSTA ., DR OLMEDO Admitting Unavailable ACOSTA ., DR OLMEDO Consulting Unavailable ACOSTA ., DR OLMEDO Attending Unavailable SANTINO CAZARES Consulting Unavailable DESHAUN BOWENS II Consulting Unavailable NICOLE ESCOTO Consulting Unavailable Jef Wooten MD Primary Care Provider AICHHOLZ, AIDA Attending Unavailable SANDIE PRIETO Attending Unavailable PHIL SHANE Attending Unavailable AICHHOLZ, AIDA Attending Unavailable AICHHOLZ, AIDA Attending Unavailable JONATAN SMITH Attending Unavailable AICHHOLZ, AIDA Attending Unavailable NO FAMILY, PHYSICIAN Primary Care Provider Unava ilable Meir Newell DO Attending Provider [phone] Meir Newell Jr Attending Unavailable Meir Newell Jr Admitting Unavailable NO FAMILY, PHYSICIAN Primary Care Unavailable Allergies Allergy Classification Reported Allergen(s) Allergy Type Date of Onset Reaction(s) Facility (1 source) Bee pollen Drug allergy (disorder) [facility] (1 source) Penicillins Drug allergy (disorder) 03-31-20 15 [facility] (1 source) Sulfamethoxazole / Trimethoprim Drug Allergy 03-31-20 15 [facility] (20 sources) Honey bee venom Allergy to substance 01-14-20 [facility] (20 sources) metroNIDAZOLE Drug Allergy 07-28-19 24 Other, GI intolerance [facility] (20 sources) Penicillin G Drug Allergy 01-14-20 23 [facility] (20 sources) Sulfonamides (Antibiotic) Drug Allergy 01-14-20 23 [facility] (1 source) metroNIDAZOLE Drug Allergy 03-13-20 [facility] (1 source) Penicillin Drug Allergy 03-13-20 [facility] (1 source) Sulfonamides (Antibiotic) Drug allergy (disorder) 03-13-20 25 [facility] (1 source) venom-honey bee Drug allergy (disorder) 03-13-20 [facility] Medications Current Medications Medication Drug Class(es) Dates Sig (Normalized) Sig (Original) amLODIPine 10 mg oral tablet (20 sources) Dihydropyridine Calcium Channel Shanna Start: 12-29-2023 End: 05-13-2025 take 1 tablet by mouth once daily amLODIPine (Norvasc) 10 MG tablet Indications: Primary hypertension Take 1 tablet (10 mg) by mouth Daily 90 tablet 1 02/12/2025 05/13/2025 Active atorvastatin 10 mg oral tablet (4 sources) HMG-CoA Reductase Inhibitor Start: 01-22-2025 End: 04-22-2025 take 1 tablet by mouth in the evening atorvastatin (Lipitor) 10 MG tablet Indications: Mixed hyperlipidemia Take 1 tablet (10 mg) by mouth in the evening 90 tablet 01/22/2025 04/22/2025 Active azithromycin 250 mg oral tablet (12 sources) Macrolide Antimicrobial Start: 11-30-2024 End: 02-12-2025 take 2 tablets by mouth once daily azithromycin (Zithromax) 250 MG tablet Indications: Mucocele of mouth 2 tablets day #1, 1 tablet day #2-#5 6 tablet 01/19/2025 02/12/2025 Discontinued (Therapy completed) Start: 07-20-2024 End: 08-30-2024 azithromycin (Zithromax) 250 [...] 90 tablet 1 08/30/2024 Active busPIRone hydrochloride 10 mg oral tablet (20 sources) Start: 02-12-2025 End: 03-14-2025 take 2 tablets by mouth in the morning busPIRone (Buspar) 10 MG tablet Indications: Anxiety and depression Take 2 tablets (20 mg) by mouth in the morning and 2 tablets (20 mg) before bedtime. 120 tablet 2 02/12/2025 03/14/2025 Active Start: 12-29-2023 End: 02-12-2025 take 1 tablet by mouth in the morning busPIRone (Buspar) 15 MG tablet Indications: Anxiety and depression Take 1 tablet (15 mg) by mouth in the morning and 1 tablet (15 mg) before bedtime. 180 tablet 1 08/30/2024 02/12/2025 Discontinued (Ineffective) cariprazine 1.5 mg oral capsule (20 sources) Atypical Antipsychotic Start: 12-29-2023 End: 05-13-2025 take 1 capsule by mouth once daily Cariprazine HCl (Vraylar) 1.5 MG capsule Indications: Anxiety and depression Take 1 capsule by mouth Daily 90 capsule 1 02/12/2025 05/13/2025 Active carvedilol 3.125 mg oral tablet (20 sources) alpha-Adrenergic Shanna, beta-Adrenergic Shanna Start: 12-29-2023 End: 05-13-2025 take 1 tablet by mouth in the morning carvedilol (Coreg) 3.125 MG tablet Indications: Primary hypertension Take 1 tablet (3.125 mg) by mouth in the morning and 1 tablet (3.125 mg) before bedtime. 180 tablet 1 02/12/2025 05/13/2025 Active dibucaine 0.01 mg/mg rectal ointment (20 sources) Standardized Chemical Allergen Start: 02-29-2024 dibucaine [...] sources) Serotonin Reuptake Inhibitor Start: 02-15-2024 End: 05-13-2025 take 1 tablet by mouth in the morning escitalopram (Lexapro) 20 MG tablet Indications: Anxiety and depression Take 1 tablet (20 mg) by mouth in the morning. 90 tablet 1 02/12/2025 05/13/2025 Active furosemide 20 mg oral tablet (20 sources) Loop Diuretic Start: 12-29-2023 End: 11-28-2024 take 1 tablet by mouth once daily furosemide (Lasix) 20 MG tablet Indications: Edema, lower extremity Take 1 tablet (20 mg) by mouth Daily 90 tablet 1 08/30/2024 Active hydroCHLOROthiazide 12.5 mg / lisinopril 20 mg oral tablet (20 sources) Thiazide Diuretic, Angiotensin Converting Enzyme Inhibitor Start: 12-29-2023 End: 05-13-2025 take 1 tablet by mouth in the morning lisinopril-hydroCH LOROthiazide 20-12.5 MG tablet Indications: Primary hypertension Take 1 tablet by mouth in the morning and 1 tablet before bedtime. 180 tablet 1 02/12/2025 05/13/2025 Active hydrocortisone acetate 25 mg rectal suppository [...] sources) Proton Pump Inhibitor Start: 08-27-2024 End: 05-13-2025 take 1 tablet by mouth in the morning pantoprazole (ProtoNix) 40 MG EC tablet Indications: Gastroesophageal reflux disease, unspecified whether esophagitis present Take 1 tablet (40 mg) by mouth in the morning and 1 tablet (40 mg) before bedtime. 180 tablet 1 02/12/2025 05/13/2025 Active Start: 12-29-2023 End: 07-02-2024 take 1 tablet by mouth in the morning pantoprazole (ProtoNix) 40 MG EC tablet Indications: Gastro-esophageal reflux disease without esophagitis Take 1 tablet (40 mg) by mouth in the morning and 1 tablet (40 mg) before bedtime. 180 tablet 1 04/03/2024 Active polyethylene glycol 3350 02161 mg powder for oral solution (2 sources) [...] 4 MG/3ML solution pen-injector (20 sources) Start: 02-12-2025 End: 05-07-2025 semaglutide (Ozempic, 1 MG/DOSE,) 4 MG/3ML solution pen-injector Indications: Pre-diabetes Inject 1 mg under the skin every 7 (seven) days 9 mL 1 02/12/2025 05/07/2025 Active Start: 08-30-2024 End: 02-12-2025 semaglutide (Ozempic, 1 MG/D OSE,) 4 MG/3ML solution pen- injector Indications: Pre-diabetes Inject 1 mg under the skin every 7 (seven) days 9 mL 1 08/30/2024 02/12/2025 Discontinued (Reorder) Start: 08-30-2024 semaglutide (O zempic, 1 MG/DOSE,) 4 MG/3ML solution pen- injector Indications: Pre-diabetes [...] sources) Serotonin Reuptake Inhibitor Start: 12-29-2023 End: 05-13-2025 take 2 tablets by mouth at bedtime traZODone (Desyrel) 150 MG tablet Indications: Primary insomnia Take 2 tablets (300 mg) by mouth at bedtime 180 tablet 1 02/12/2025 05/13/2025 Active ubrogepant 100 mg oral tablet (20 [...] every six hours for pain HYDROcodone-acetam inophen ([place]) 5-325 MG tablet Indications: Postoperative pain Take [...] [Prediabetes] Onset: 10-21-2023 Resolved: 02-21-2024 11-04-2023 Episodic Diseases of mouth; excluding dental (9 sources) Mucocele of mouth; Translations: [Other lesions [...] Onset: 09-11-2022 Chronic Miscellaneous mental health disorders (4 sources) Primary insomnia; Translations: [Primary insomnia] 08-30-2024 [...] Chronic Other nutritional; endocrine; and metabolic disorders (16 sources) Obesity caused by energy imbalance; Translations: [...] of anus and rectum] Onset: 02-21-2024 Resolved: 02-12-2025 02-21-2024 Episodic Bacterial infection; unspecified site (1 source) Personal history of Methicillin resistant Staphylococcus aureus infection; Translations: [PERS HX METHICILLIN RSIST STAPH INF] Onset: 05-04-2022 Episodic Disorders of teeth and jaw (16 sources) Infection of tooth; Translations: [Periapical abscess without sinus] Onset: 07-20-2024 Resolved: 02-12-2025 07-20-2024 Episodic Hemorrhoids (20 sources) Hemorrhoids; Translations: [Other hemorrhoids] Onset: 02-09-2024 02-09-2024 Episodic Immunizations and screening for infectious disease (1 source) Encounter for screening for human papillomavirus (HPV); Translations: [ENC SCREENING HUMAN PAPILLOMAVIRUS] Onset: 05-23-2022 Episodic Nausea and vomiting (20 sources) Nausea; Translations: [Nausea] Onset: 04-25-2024 04-25-2024 Episodic Nonmalignant breast conditions (9 sources) Abscess of breast; Translations: [Abscess of the breast and nipple] Onset: 11-02-2024 Resolved: 02-12-2025 11-02-2024 Episodic Other aftercare (1 source) Other custodial (current) drug therapy; Translations: [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] Onset: 05-04-2022 Episodic Other [...] Test Name Value Interpretation Reference Range Facility Basic Metabolic Mello w/Rfx A1 Con 02-23-2025 GFR/1.73 sq M.predicted MDRD (S/P/Bld) [Vol rate/Area] mL/min/{1.73_m2} Normal [facility] Comment on above: Performed By: #### E MP BMP, EBS LIPID #### [facility] [address] [place] [address] [place] Calcium [Mass/volume] in Ser um or PlasmaOrdered By: Meir Newell on 02-23-2025 Calcium [Mass/Vol] 9.0 mg/dL Normal 8.6-10.3 [facility] Comment on above: Performed By: #### E MP BMP, EBS LIPID #### [facility] [address] [place] [address] [place] Carbon dioxide, total [Moles /volume] in Serum or PlasmaOrdered By: Meir Newell on 02-23-2025 CO2 [Moles/Vol] 29.3 mmol/L Normal 21.0-31.0 [facility] Comment on above: Performed By: #### E MP BMP, EBS LIPID #### [facility] [address] [place] [id number] [place] Chloride [Moles/volume] in S stacey or PlasmaOrdered By: Meir Newell on 02-23-2025 Chloride [Moles/Vol] 101 mmol/L Normal 98-107 [facility] Comment on above: Performed By: #### E MP BMP, EBS LIPID #### [facility] [address] [place] [id number] [place] Cholesterol [Mass/volume] in Serum or PlasmaOrdered By: Meir Newell on 02-23-2025 Cholesterol [Mass/Vol] 169 mg/dL Normal 140-200 [facility] Comment on above: Chol less than 200 m g/dl low riskChol 201-239 mg/dl borderline riskChol 240 mg/dl and greater high risk Result Comment: Chol less than 200 mg/dl low risk Chol 201-239 mg/dl borderline risk Chol 240 mg/dl and greater high risk Performed By: #### E MP BMP, EBS LIPID #### [facility] [address] [place] [id number] [place] Cholesterol in HDL [Mass/vol ume] in Serum or PlasmaOrdered By: Meir Newell on 02-23-2025 Cholesterol in HDL [Mass/Vol] 58 mg/dL Normal 23-92 [facility] Comment on above: HDL CHOL ATP-III CLA SSIFICATION Cardiovascular RiskHDL > or equal to 60 mg/dL LOWHDL < 40 mg/dL HIGH Result Comment: HDL CHOL ATP-III CLASSIFICATION Cardiovascular Risk HDL > or equal to 60 mg/dL LOW HDL < 40 mg/dL HIGH Performed By: #### E MP BMP, EBS LIPID #### [facility] [address] [place] [id number] [place] Cholesterol in LDL Calc [Mas s/Vol]Ordered By: Meir Newell on 02-23-2025 Cholesterol in LDL [Mass/Vol] 96 mg/dL 0-100 [facility] Comment on above: LDL ATP III CLASSIFI CATIONLDL less than 100 mg/dL OptimalLDL 100-129 mg/dL Near or above optimalLDL 130-159 mg/dL Borderline highLDL 160-189 mg/dL HighLDL greater than 189 mg/dL Very high Cholesterol in VLDL Calc [Ma ss/Vol]Ordered By: Meir Newell on 02-23-2025 Cholesterol in VLDL [Mass/Vol] 15 mg/dL [facility] Creatinine [Mass/volume] in Serum or PlasmaOrdered By: Meir Newell on 02-23-2025 Creatinine [Mass/Vol] 0.82 mg/dL Normal 0.60-1.20 [facility] Comment on above: Performed By: #### E MP BMP, EBS LIPID #### [facility] [address] Glomerular filtration rate [ Volume Rate/Area] in Serum, Plasma or Blood by CreatinineOrdered By: Meir Newell on 02-23-2025 Glomerular filtration rate [Volume Rate/Area] in Serum, Plasma or Blood by Creatinine > 60.0 mL/Min [facility] Glucose [Mass/volume] in Ser um or PlasmaOrdered By: Meir Newell on 02-23-2025 Glucose [Mass/Vol] 83 mg/dL Normal 70-100 [facility] Comment on above: Performed By: #### E MP BMP, EBS LIPID #### [facility] [address] Lipid Profileon 02-23-2025 LDL Cholesterol,Calculated 96 mg/dL Normal 0-100 [facility] Comment on above: Result Comment: LDL ATP III CLASSIFICATION LDL less than 100 mg/dL Optimal LDL 100-129 mg/dL Near or above optimal LDL 130-159 mg/dL Borderline high LDL 160-189 mg/dL High LDL greater than 189 mg/dL Very high Performed By: #### E MP BMP, EBS LIPID #### [address] Triglyceride w/Reflex 76 mg/dL Normal 0-149 [facility] Comment on above: Result Comment: TRIG ATP III CLASSIFICATION TRIG less than 150 mg/dL Normal TRIG 150-199 mg/dL Borderline high TRIG 200-500 mg/dL High TRIG greater than 500 mg/dL Very high Standard traceable to the Center for Disease Conrtrol and Prevention (CDC) test method. Performed By: #### E MP BMP, EBS LIPID #### [facility] [address] VLDL CHOLESTEROL 15 mg/dL Normal [facility] Comment on above: Performed By: #### E MP BMP, EBS LIPID #### [address] No Panel InformationOrdered By: Meir Newell on 02-23-2025 Pharmacy Creatinine Clearance (Chem N/A [facility] Potassium [Moles/volume] in Serum or PlasmaOrdered By: Meir Newell on 02-23-2025 Potassium [Moles/Vol] 3.7 mmol/L Normal 3.5-5.1 [facility] Comment on above: Performed By: #### E DEANDRE PATEL, EBS LIPID #### [facility] [address] Serum or plasma anion gap de terminationOrdered By: Meir Newell on 02-23-2025 Anion gap [Moles/Vol] 10.4 mmol/L Normal 6.0-15.0 [facility] Comment on above: Performed By: #### E DEANDRE PATEL, EBS LIPID #### [facility] [address] Serum or plasma total choles terol/high density lipoprotein (HDL) cholesterol mass ratOrdered By: Meir Newell on 02-23-2025 Cholesterol.total/Klaudia sterol in HDL [Mass ratio] 2.9 {ratio} Normal <5.0 [facility] Comment on above: Result Comment: PERF ORMED BY: [place] [address] PATHOLOGIST EXPORT AGENT DRE SALMON M.D. Performed By: #### E DEANDRE PATEL, EBS LIPID #### [address] Sodium [Moles/volume] in Ser um or PlasmaOrdered By: Meir Newell on 02-23-2025 Sodium [Moles/Vol] 137 mmol/L Normal 136-145 [facility] Comment on above: Performed By: #### E DEANDRE PATEL, EBS LIPID #### [address] Triglyceride [Mass/volume] i n Serum or PlasmaOrdered By: Meir Newell on 02-23-2025 Triglyceride [Mass/Vol] 76 mg/dL 0-149 [facility] Comment on above: TRIG ATP III CLASSIF ICATIONTRIG less than 150 mg/dL NormalTRIG 150-199 mg/dL Borderline highTRIG 200-500 mg/dL High TRIG greater than 500 mg/dL Very highStandard traceable to the Center for Disease Conrtrol and Prevention (CDC) test method. Urea nitrogen [Mass/volume] in Serum or PlasmaOrdered By: Meir Newell on 02-23-2025 Urea nitrogen [Mass/Vol] 14 mg/dL Normal 7-25 [facility] Comment on above: Performed By: #### E MP BMPJOSSELYN LIPID #### [facility] [address] MLR HEMOGLOBIN A1Con 025 Glucose [Mass/Vol] 103 mg/dL [facility] HbA1c (Bld) [Mass fraction] 5.2 % 4.5 - 6.2 % [facility] Comment on above: ADA RECOMMENDED LIMI T 4.0 - 6.0 ADA THERAPEUTIC TARGET < 7.0 ACTION SUGGESTED > 7.0 [facility] HbA1c (Bld) [Mass fraction]o n 08-30-2024 Interpretation and review of laboratory results Normal [facility] - Hematology and Cell countson 08-30-2024 HbA1c (Bld) [Mass fraction] 5.20 % [facility] Cytology Cervical or vaginal smear or scraping studyOrdered By: Adeline Darden on 09-15-2023 [facility] CBC AUTO DIFFon 11-27-2022 BASO # 0.1 103/ul Normal 0.0-0.1 [facility] Comment on above: Performed By: #### D DIM #### [facility] [address] [place] [address] Dr. Tyra Poon Basophils/100 WBC (Bld) 0.9 % Normal 0.2-2.0 [facility] Comment on above: Performed By: #### D DIM #### [facility] [address] [place] [address] Dr. Tyra Poon EO # 0.3 103/ul Normal 0.0-0.7 [facility] Comment on above: Performed By: #### D DIM #### [facility] [address] [place] [address] Dr. Tyra Poon Eosinophils/100 WBC (Bld) 3.9 % Normal 0.9-7.0 [facility] Comment on above: Performed By: #### D DIM #### [facility] [address] [place] [address] Dr. Tyra Poon Erythrocyte distribution width (RBC) [Ratio] 14.1 % Normal 11.0-15.0 [facility] Comment on above: Performed By: #### D DIM #### [facility] [address] [place] [address] Dr. Tyra Poon Hematocrit (Bld) [Volume fraction] 33.5 % Critically low 36.0-48.0 [facility] Comment on above: Performed By: #### D DIM #### [facility] [address] [place] [address] Dr. Tyra Poon Hemoglobin (Bld) [Mass/Vol] 10.3 g/dL Critically low 12.0-16.0 [facility] Comment on above: Performed By: #### D DIM #### [facility] [address] [place] [address] Dr. Tyra Poon IG # 0.03 10e3/ul Normal 0.00-0.03 [facility] Comment on above: Performed By: #### D DIM #### [facility] [address] [place] [address] Dr. Tyra Poon IG % 0.4 % Normal 0.0-0.5 [facility] Comment on above: Performed By: #### D DIM #### [facility] [address] [place] [address] Dr. Tyra Poon LYMPH # 2.3 103/ul Normal 1.2-3.8 [facility] Comment on above: Performed By: #### D DIM #### [facility] [address] [place] [address] Dr. Tyra Poon Lymphocytes/100 WBC (Bld) 34.3 % Normal 20.5-60.0 [facility] Comment on above: Performed By: #### D DIM #### [facility] [address] [place] [address] Dr. Tyra Poon MANUAL DIFF REQ NO Normal [facility] Comment on above: Performed By: #### D DIM #### [facility] [address] [place] [address] Dr. Tyra Poon MCH (RBC) [Entitic mass] 25.9 pg Critically low 26.7-34.0 [facility] Comment on above: Performed By: #### D DIM #### [facility] [address] [place] [address] Dr. Tyra Poon MCHC (RBC) [Mass/Vol] 30.7 g/dL Normal 29.9-35.2 [facility] Comment on above: Performed By: #### D DIM #### [facility] [address] [place] [address] Dr. Tyra Poon MCV (RBC) [Entitic vol] 84.4 fL Normal 81.0-99.0 [facility] Comment on above: Performed By: #### D DIM #### [facility] [address] [place] [address] Dr. Tyra Poon MONO # 0.5 103/ul Normal 0.3-0.8 [facility] Comment on above: Performed By: #### D DIM #### [facility] [address] [place] [address] Dr. Tyra Poon Monocytes/100 WBC (Bld) 7.2 % Normal 1.7-12.0 [facility] Comment on above: Performed By: #### D DIM #### [facility] [address] [place] [address] Dr. Tyra Poon NEUT # 3.6 103/ul Normal 1.4-6.5 [facility] Comment on above: Performed By: #### D DIM #### [facility] [address] [place] [address] Dr. Tyra Poon Neutrophils/100 WBC (Bld) 53.3 % Normal 43.0-75.0 [facility] Comment on above: Performed By: #### D DIM #### [facility] [address] [place] [address] Dr. Tyra Poon Platelet mean volume (Bld) [Entitic vol] 9.1 fL Critically low 9.5-13.5 [facility] Comment on above: Performed By: #### D DIM #### [facility] [address] [place] [address] Dr. Tyra Poon PLT 325 103/ul Normal 150-450 [facility] Comment on above: Performed By: #### D DIM #### [facility] [address] [place] [address] [address] Tyra Poon RBC 3.97 106/ul Critically low 4.20-5.40 [facility] Comment on above: Performed By: #### D DIM #### [facility] [address] [place] [address] [address] Tyra Poon WBC 6.7 103/ul Normal 4.0-11.0 [facility] Comment on above: Performed By: #### D DIM #### [facility] [address] [place] [address] [address] Tyra Poon D-DIMERon 11-27-2022 D-DIMER 0.36 mg/L FEU Normal <=0.59 [facility] Comment on above: Performed By: #### D DIM #### [facility] [address] [place] [address] [address] Tyra Poon D-DIMER COMMENTS SEE BELOW Normal [facility] Comment on above: Result Comment: Incr [...] hospitalization. Performed By: #### D DIM #### [facility] [address] [place] [address] Dr. Tyra Poon ECHOCARDIO M/2D COMPLETEon 0 11-27-2022 ECHOCARDIO M/2D COMPLETE Patient: LAVERNE ROCA Exam Date: 11/27/2022 : 1980 Gender:F Ordering : EVANGELINA CHAVES CNP Admission #: [id number] Family : Order #: [id number] CLICK HERE TO VIEW EXAM ECHOCARDIOGRAM REPORT [...] White M.D. on 11/29/2022 at 15:33 Normal [facility] FREE T4on 11-27-2022 Free T4 [Mass/Vol] 1.00 ng/dL Normal 0.76-1.46 [facility] Comment on above: Performed By: #### D DIM #### [facility] [address] [place] [address] Dr. Tyra Poon PROF 14(COMP METB)on 023 Albumin [Mass/Vol] 3.1 g/dL Critically low 3.4-5.0 [facility] Comment on above: Performed By: #### T SH, CMP #### [facility] [address] [place] [address] Dr. Tyra Poon Albumin/Globulin [Mass ratio] 0.8 {ratio} Normal [facility] Comment on above: Performed By: #### T SH, CMP #### [facility] [address] [place] [address] Dr. Tyra Poon ALP [Catalytic activity/Vol] 73 U/L Normal 46-116 [facility] Comment on above: Performed By: #### T SH, CMP #### [facility] [address] [place] [address] Dr. Tyra Poon ALT [Catalytic activity/Vol] 17 U/L Normal 14-59 [facility] Comment on above: Performed By: #### T SH, CMP #### [facility] [address] [place] [address] Dr. Tyra Poon Anion gap [Moles/Vol] 8.5 mmol/L Normal [facility] Comment on above: Performed By: #### T SH, CMP #### [facility] [address] [place] [address] Dr. Tyra Poon AST [Catalytic activity/Vol] 12 U/L Critically low 15-37 [facility] Comment on above: Performed By: #### T SH, CMP #### [facility] [address] [place] [address] Dr. Tyra Poon Bilirubin [Mass/Vol] 0.2 mg/dL Normal 0.2-1.0 [facility] Comment on above: Performed By: #### T SH, CMP #### [facility] [address] [place] [address] Dr. Tyra Poon Calcium [Mass/Vol] 8.5 mg/dL Normal 8.5-10.1 [facility] Comment on above: Performed By: #### T SH, CMP #### [facility] [address] [address] [address] Tyra Poon Chloride [Moles/Vol] 101 mmol/L Normal 98-107 [facility] Comment on above: Performed By: #### T SH, CMP #### [facility] [address] [address] [address] Tyra Poon CO2 [Moles/Vol] 32.3 mmol/L Critically high 21.0-32.0 [facility] Comment on above: Performed By: #### T SH, CMP #### [facility] [address] [address] [address] Tyra Poon Creatinine [Mass/Vol] 0.95 mg/dL Normal 0.55-1.02 [facility] Comment on above: Performed By: #### T SH, CMP #### [facility] [address] [place] [address] Dr. Tyra Poon EGFR-AF COLOMBIAN >60 Normal >=60 [facility] Comment on above: Performed By: #### T SH, CMP #### [facility] [address] [place] [address] Dr. Tyra Poon EGFR-NON AF COLOMBIAN >60 Normal >=60 [facility] Comment on above: Performed By: #### T SH, CMP #### [facility] [address] [place] [address] Dr. Tyra Poon Globulin (S) [Mass/Vol] 4.1 g/dL Normal [facility] Comment on above: Performed By: #### T SH, CMP #### [facility] [address] [place] [address] Dr. Tyra Poon Glucose [Mass/Vol] 105 mg/dL Normal 74-106 [facility] Comment on above: Performed By: #### T SH, CMP #### [facility] [address] [place] [address] Dr. Tyra Poon Potassium [Moles/Vol] 3.8 mmol/L Normal 3.5-5.1 [facility] Comment on above: Performed By: #### T SH, CMP #### [facility] [address] [place] [address] Dr. Tyra Poon Protein [Mass/Vol] 7.2 g/dL Normal 6.4-8.2 [facility] Comment on above: Performed By: #### T SH, CMP #### [facility] [address] [place] [address] Dr. Tyra Poon Sodium [Moles/Vol] 138 mmol/L Normal 136-145 [facility] Comment on above: Performed By: #### T SH, CMP #### [facility] [address] [place] [address] Dr. Tyra Poon Urea nitrogen [Mass/Vol] 14.0 mg/dL Normal 7.0-18.0 [facility] Comment on above: Performed By: #### T SH, CMP #### [facility] [address] [place] [address] Dr. Tyra Poon Urea nitrogen/Creatinine [Mass ratio] 14.7 mg/mg Normal [facility] Comment on above: Performed By: #### T SH, CMP #### [facility] [address] [place] [address] Dr. Tyra Poon TSHon 11-27-2022 TSH 1.423 uIU/mL Normal 0.358-3.740 [facility] Comment on above: Performed By: #### T SH, CMP #### [facility] [address] [place] [address] Dr. Tyra Poon BUNon 09-12-2022 Urea nitrogen [Mass/Vol] 10.0 mg/dL Normal 7.0-18.0 [facility] Comment on above: Performed By: #### D DIM #### [facility] [address] [place] [address] Dr. Tyra Poon CBC AUTO DIFFon 09-12-2022 BASO # 0.0 103/ul Normal 0.0-0.1 [facility] Comment on above: Performed By: #### P REGQNT #### [facility] [address] [place] [address] Dr. Tyra Poon Basophils/100 WBC (Bld) 0.1 % Critically low 0.2-2.0 [facility] Comment on above: Performed By: #### P REGQNT #### [facility] [address] [place] [address] Dr. Tyra Poon EO # 0.0 103/ul Normal 0.0-0.7 [facility] Comment on above: Performed By: #### P REGQNT #### [facility] [address] [place] [address] Dr. Tyra Poon Eosinophils/100 WBC (Bld) 0.1 % Critically low 0.9-7.0 [facility] Comment on above: Performed By: #### P REGQNT #### [facility] [address] [place] [address] Dr. Tyra Poon Erythrocyte distribution width (RBC) [Ratio] 14.9 % Normal 11.0-15.0 [facility] Comment on above: Performed By: #### P REGQNT #### [facility] [address] [place] [address] Dr. Tyra Poon Hematocrit (Bld) [Volume fraction] 30.8 % Critically low 36.0-48.0 [facility] Comment on above: Performed By: #### P REGQNT #### [facility] [address] [place] [address] Dr. Tyra Poon Hemoglobin (Bld) [Mass/Vol] 10.1 g/dL Critically low 12.0-16.0 [facility] Comment on above: Performed By: #### P REGQNT #### [facility] [address] [place] [address] Dr. Tyra Poon IG # 0.14 10e3/ul Critically high 0.00-0.03 [facility] Comment on above: Performed By: #### P REGQNT #### [facility] [address] [place] [address] Dr. Tyra Poon IG % 0.9 % Critically high 0.0-0.5 [facility] Comment on above: Performed By: #### P REGQNT #### [facility] [address] [place] [address] Dr. Tyra Poon LYMPH # 2.2 103/ul Normal 1.2-3.8 [facility] Comment on above: Performed By: #### P REGQNT #### [facility] [address] [place] [address] Dr. Tyra Poon Lymphocytes/100 WBC (Bld) 14.6 % Critically low 20.5-60.0 [facility] Comment on above: Performed By: #### P REGQNT #### [facility] [address] [place] [address] Dr. Tyra Poon MANUAL DIFF REQ NO Normal [facility] Comment on above: Performed By: #### P REGQNT #### [facility] [address] [place] [address] Dr. Tyra Poon MCH (RBC) [Entitic mass] 27.3 pg Normal 26.7-34.0 [facility] Comment on above: Performed By: #### P REGQNT #### [facility] [address] [place] [address] Dr. Tyra Poon MCHC (RBC) [Mass/Vol] 32.8 g/dL Normal 29.9-35.2 [facility] Comment on above: Performed By: #### P REGQNT #### [facility] [address] [place] [address] Dr. Tyra Poon MCV (RBC) [Entitic vol] 83.2 fL Normal 81.0-99.0 [facility] Comment on above: Performed By: #### P REGQNT #### [facility] [address] [place] [address] Dr. Tyra Poon MONO # 1.0 103/ul Critically high 0.3-0.8 [facility] Comment on above: Performed By: #### P REGQNT #### [facility] [address] [place] [address] Dr. Tyra Poon Monocytes/100 WBC (Bld) 6.6 % Normal 1.7-12.0 [facility] Comment on above: Performed By: #### P REGQNT #### [facility] [address] [address] [address] Tyra Poon NEUT # 11.8 103/ul Critically high 1.4-6.5 [facility] Comment on above: Performed By: #### P REGQNT #### [facility] [address] [place] [address] Dr. Tyra Poon Neutrophils/100 WBC (Bld) 77.7 % Critically high 43.0-75.0 [facility] Comment on above: Performed By: #### P REGQNT #### [facility] [address] [place] [address] Dr. Tyra Poon Platelet mean volume (Bld) [Entitic vol] 9.3 fL Critically low 9.5-13.5 [facility] Comment on above: Performed By: #### P REGQNT #### [facility] [address] [place] [address] Dr. Tyra Poon PLT 282 103/ul Normal 150-450 [facility] Comment on above: Performed By: #### P REGQNT #### [facility] [address] [place] [address] Dr. Tyra Poon RBC 3.70 106/ul Critically low 4.20-5.40 [facility] Comment on above: Performed By: #### P REGQNT #### [facility] [address] [place] [address] Dr. Tyra Poon WBC 15.2 103/ul Critically high 4.0-11.0 [facility] Comment on above: Performed By: #### P REGQNT #### [facility] [address] [place] [address] Dr. Tyra Poon BASO # 0.0 103/ul Normal 0.0-0.1 [facility] Comment on above: Performed By: #### C BC #### [facility] [address] [place] [address] Dr. Tyra Poon Basophils/100 WBC (Bld) 0.2 % Normal 0.2-2.0 [facility] Comment on above: Performed By: #### C BC #### [facility] [address] [address] [address] Tyra Poon EO # 0.0 103/ul Normal 0.0-0.7 [facility] Comment on above: Performed By: #### C BC #### [facility] [address] [place] [address] Dr. Tyra Poon Eosinophils/100 WBC (Bld) 0.0 % Critically low 0.9-7.0 [facility] Comment on above: Performed By: #### C BC #### [facility] [address] [place] [address] Dr. Tyra Poon Erythrocyte distribution width (RBC) [Ratio] 14.6 % Normal 11.0-15.0 [facility] Comment on above: Performed By: #### C BC #### [facility] [address] [place] [address] Dr. Tyra Poon Hematocrit (Bld) [Volume fraction] 34.6 % Critically low 36.0-48.0 [facility] Comment on above: Performed By: #### C BC #### [facility] [address] [place] [address] Dr. Tyra Poon Hemoglobin (Bld) [Mass/Vol] 11.0 g/dL Critically low 12.0-16.0 [facility] Comment on above: Performed By: #### C BC #### [facility] [address] [place] [address] Dr. Tyra Poon IG # 0.28 10e3/ul Critically high 0.00-0.03 [facility] Comment on above: Performed By: #### C BC #### [facility] [address] [place] [address] Dr. Tyra Poon IG % 1.3 % Critically high 0.0-0.5 [facility] Comment on above: Performed By: #### C BC #### [facility] [address] [place] [address] Dr. Tyra Poon LYMPH # 1.9 103/ul Normal 1.2-3.8 [facility] Comment on above: Performed By: #### C BC #### [facility] [address] [place] [address] Dr. Tyra Poon Lymphocytes/100 WBC (Bld) 9.2 % Critically low 20.5-60.0 [facility] Comment on above: Performed By: #### C BC #### [facility] [address] [place] [address] Dr. Tyra Poon MANUAL DIFF REQ NO Normal [facility] Comment on above: Performed By: #### C BC #### [facility] [address] [place] [address] Dr. Tyra Poon MCH (RBC) [Entitic mass] 27.0 pg Normal 26.7-34.0 [facility] Comment on above: Performed By: #### C BC #### [facility] [address] [place] [address] Dr. Tyra Poon MCHC (RBC) [Mass/Vol] 31.8 g/dL Normal 29.9-35.2 [facility] Comment on above: Performed By: #### C BC #### [facility] [address] [place] [address] Dr. Tyra Poon MCV (RBC) [Entitic vol] 84.8 fL Normal 81.0-99.0 [facility] Comment on above: Performed By: #### C BC #### [facility] [address] [place] [address] Dr. Tyra Poon MONO # 1.2 103/ul Critically high 0.3-0.8 [facility] Comment on above: Performed By: #### C BC #### [facility] [address] [place] [address] Dr. Tyra Poon Monocytes/100 WBC (Bld) 5.8 % Normal 1.7-12.0 [facility] Comment on above: Performed By: #### C BC #### [facility] [address] [place] [address] Dr. Tyra Poon NEUT # 17.7 103/ul Critically high 1.4-6.5 [facility] Comment on above: Performed By: #### C BC #### [facility] [address] [place] [address] Dr. Tyra Poon Neutrophils/100 WBC (Bld) 83.5 % Critically high 43.0-75.0 [facility] Comment on above: Performed By: #### C BC #### [facility] [address] [place] [address] Dr. Tyra Poon Platelet mean volume (Bld) [Entitic vol] 9.6 fL Normal 9.5-13.5 [facility] Comment on above: Performed By: #### C BC #### [facility] [address] [place] [address] Dr. Tyra Poon PLT 367 103/ul Normal 150-450 [facility] Comment on above: Performed By: #### C BC #### [facility] [address] [place] [address] Dr. Tyra Poon RBC 4.08 106/ul Critically low 4.20-5.40 [facility] Comment on above: Performed By: #### C BC #### [facility] [address] [place] [address] Dr. Tyra Poon WBC 21.2 103/ul Critically high 4.0-11.0 [facility] Comment on above: Performed By: #### C BC #### [facility] [address] [place] [address] Dr. Tyra Poon CREATININEon 09-12-2022 Creatinine [Mass/Vol] 1.08 mg/dL Critically high 0.55-1.02 [facility] Comment on above: Performed By: #### D DIM #### [facility] [address] [place] [address] Dr. Tyra Poon EGFR-AF COLOMBIAN >60 Normal >=60 [facility] Comment on above: Performed By: #### D DIM #### [facility] [address] [place] [address] Dr. Tyra Poon EGFR-NON AF COLOMBIAN 55 mL/min/1.73m2 Critically low >=60 [facility] Comment on above: Performed By: #### D DIM #### [facility] [address] [place] [address] Dr. Tyra Poon CBC AUTO DIFFon 09-09-2022 BASO # 0.1 103/ul Normal 0.0-0.1 [facility] Comment on above: Performed By: #### U AMIC #### [facility] [address] [address] [address] Tyra Poon Basophils/100 WBC (Bld) 0.7 % Normal 0.2-2.0 [facility] Comment on above: Performed By: #### U AMIC #### [facility] [address] [address] [address] Tyra Poon EO # 0.2 103/ul Normal 0.0-0.7 [facility] Comment on above: Performed By: #### U AMIC #### [facility] [address] [address] [address] Tyra Poon Eosinophils/100 WBC (Bld) 2.4 % Normal 0.9-7.0 [facility] Comment on above: Performed By: #### U AMIC #### [facility] [address] [place] [address] Dr. Tyra Poon Erythrocyte distribution width (RBC) [Ratio] 14.3 % Normal 11.0-15.0 [facility] Comment on above: Performed By: #### U AMIC #### [facility] [address] [address] [address] Tyra Poon Hematocrit (Bld) [Volume fraction] 33.3 % Critically low 36.0-48.0 [facility] Comment on above: Performed By: #### U AMIC #### [facility] [address] [address] [address] Tyra Poon Hemoglobin (Bld) [Mass/Vol] 10.8 g/dL Critically low 12.0-16.0 [facility] Comment on above: Performed By: #### U AMIC #### [facility] [address] [address] [address] Tyra Poon IG # 0.05 10e3/ul Critically high 0.00-0.03 [facility] Comment on above: Performed By: #### U AMIC #### [facility] [address] [address] [address] Tyra Poon IG % 0.6 % Critically high 0.0-0.5 [facility] Comment on above: Performed By: #### U AMIC #### [facility] [address] [address] [address] Tyra Poon LYMPH # 3.0 103/ul Normal 1.2-3.8 [facility] Comment on above: Performed By: #### U AMIC #### [facility] [address] [address] [address] Tyra Poon Lymphocytes/100 WBC (Bld) 33.4 % Normal 20.5-60.0 [facility] Comment on above: Performed By: #### U AMIC #### [facility] [address] [place] [address] Dr. Tyra Poon MANUAL DIFF REQ NO Normal [facility] Comment on above: Performed By: #### U AMIC #### [facility] [address] [address] [address] Tyra Poon MCH (RBC) [Entitic mass] 27.0 pg Normal 26.7-34.0 [facility] Comment on above: Performed By: #### U AMIC #### [facility] [address] [place] [address] Dr. Tyra Poon MCHC (RBC) [Mass/Vol] 32.4 g/dL Normal 29.9-35.2 [facility] Comment on above: Performed By: #### U AMIC #### [facility] [address] [place] [address] Dr. Tyra Poon MCV (RBC) [Entitic vol] 83.3 fL Normal 81.0-99.0 [facility] Comment on above: Performed By: #### U AMIC #### [facility] [address] [place] [address] Dr. Tyra Poon MONO # 0.6 103/ul Normal 0.3-0.8 [facility] Comment on above: Performed By: #### U AMIC #### [facility] [address] [address] [address] Tyra Poon Monocytes/100 WBC (Bld) 6.3 % Normal 1.7-12.0 [facility] Comment on above: Performed By: #### U AMIC #### [facility] [address] [place] [address] Dr. Tyra Poon NEUT # 5.0 103/ul Normal 1.4-6.5 [facility] Comment on above: Performed By: #### U AMIC #### [facility] [address] [place] [address] Dr. Tyra Poon Neutrophils/100 WBC (Bld) 56.6 % Normal 43.0-75.0 [facility] Comment on above: Performed By: #### U AMIC #### [facility] [address] [place] [address] Dr. Tyra Poon Platelet mean volume (Bld) [Entitic vol] 9.3 fL Critically low 9.5-13.5 [facility] Comment on above: Performed By: #### U AMIC #### [facility] [address] [place] [address] Dr. Tyra Poon PLT 310 103/ul Normal 150-450 [facility] Comment on above: Performed By: #### U AMIC #### [facility] [address] [place] [address] Dr. Tyra Poon RBC 4.00 106/ul Critically low 4.20-5.40 [facility] Comment on above: Performed By: #### U AMIC #### [facility] [address] [place] [address] Dr. Tyra Poon WBC 8.9 103/ul Normal 4.0-11.0 [facility] Comment on above: Performed By: #### U AMIC #### [facility] [address] [place] [address] Dr. Tyra Poon PREG QUANT HCGon 09-09-2022 HCG QUANT <1 Normal [facility] Comment on above: Performed By: #### P REGQNT #### [facility] [address] [place] [address] Dr. Tyra Poon HCG RANGE SEE BELOW Normal [facility] Comment on above: Result Comment: 5-50 0.2-1 WEEK 50-500 1-2 WEEKS 100-5,000 2-3 WEEKS 500-10,000 3-4 WEEKS 1,000-50,000 4-5 WEEKS 10,000-100,000 5-6 WEEKS 15,000-200,000 6-8 WEEKS 10,000-100,000 2-3 MONTHS Performed By: #### P REGQNT #### [facility] [address] [place] [address] Dr. Tyra Poon TYPE AND SCREENon 09-09-2022 TYPE AND SCREEN Negative Normal [facility] Comment on above: Performed By: #### P REGQNT #### [facility] [address] [place] [address] Dr. Tyra Poon QUANTIFERON TB GOLD PLUSon 0 07-10-2022 QuantiFERON Criteria Comment Normal [facility] Comment on above: Result Comment: Martínez [...] test. Performed By: #### Q NTTB #### [facility] [address] [place] [address] Dr. Tyra Poon QuantiFERON Incubation Incubation performed. Normal [facility] Comment on above: Performed By: #### Q NTTB #### [facility] [address] [place] [address] Dr. Tyra Poon QuantiFERON Mitogen Value >10.00 Normal [facility] Comment on above: Performed By: #### Q NTTB #### [facility] [address] [place] [address] Dr. Tyra Poon QuantiFERON Nil Value 0.05 IU/mL Normal [facility] Comment on above: Performed By: #### Q NTTB #### [facility] [address] [place] [address] Dr. Tyra Poon QuantiFERON TB1 Ag Value 0.06 IU/mL Normal [facility] Comment on above: Performed By: #### Q NTTB #### [facility] [address] [place] [address] Dr. Tyra Poon QuantiFERON TB2 Ag Value 0.07 IU/mL Normal [facility] Comment on above: Performed By: #### Q NTTB #### [facility] [address] [place] [address] Dr. Tyra Poon QuantiFERON-TB Gold Plus Negative Normal Negative [facility] Comment on above: Result Comment: No r esponse to M tuberculosis antigens detected. Infection with M tuberculosis is unlikely, but high risk individuals should be considered for additional testing (ATS/IDSA/CDC Clinical Practice Guidelines, 2017). The reference range is an Antigen minus Nil result of <0.35 IU/mL. Chemiluminescence immunoassay methodology Performed By: #### Q NTTB #### [facility] [address] [place] [address] Dr. Tyra Poon HEPATITIS B SURFACE ANTIBODY , QUANTon 07-09-2022 Hepatitis B Surf AB Quant <3.1 Critically low Immunity>9.9 [facility] Comment on above: Result Comment: Stat us of Immunity Anti-HBs Level Inconsistent with Immunity 0.0 - 9.9 Consistent with Immunity >9.9 Performed By: #### H EPBSRF #### [facility] [address] [place] [address] Dr. Tyra Poon MMR IMMUNITYon 07-09-2022 Mumps Abs, IgG 142.0 AU/mL Normal Immune >10.9 [facility] Comment on above: Result Comment: Nega tive <9.0 Equivocal 9.0 - 10.9 Positive >10.9 A positive result generally indicates past exposure to Mumps virus or previous vaccination. Performed By: #### P REGQNT #### [facility] [address] [place] [address] Dr. Tyra Poon Rubella Antibodies, IgG 11.90 index Normal Immune >0.[address] [place] [address] Comment on above: Result Comment: Non- immune <0.90 Equivocal 0.90 - 0.99 Immune >0.99 Performed By: #### P REGQNT #### [facility] [address] [place] [address] Dr. Tyra Poon Rubeola Ab, IgG 222.0 AU/mL Normal Immune >16.4 [facility] Comment on above: Result Comment: Nega tive <13.5 Equivocal 13.5 - 16.4 Positive >16.4 Presence of antibodies to Rubeola is presumptive evidence of immunity except when acute infection is suspected. Performed By: #### P REGQNT #### [facility] [address] [place] [address] Dr. Tyra Poon VARICELLA IGG ABon 3 Varicella Zoster IgG 3514 index Normal Immune >165 [facility] Comment on above: Result Comment: Nega tive <135 Equivocal 135 - 165 Positive >165 A positive result generally indicates exposure to the pathogen or administration of specific immunoglobulins, but it is not indication of active infection or stage of disease. Performed By: #### U AMIC #### [facility] [address] [place] [address] Dr. Tyra Poon PAP ACOG PANEL 2: 30 to 65on 05-31-2022 . . Normal [facility] Comment on above: Result Comment: Perf ormed at: WB Performed By: #### [id number] #### [facility] [address] [place] [address] Dr. Tyra Poon Age Gdln ACOG Testing 30-65 Normal [facility] Comment on above: Performed By: #### [id number] #### [facility] [address] [place] [address] Dr. Tyra Poon DIAGNOSIS: Comment Normal [facility] Comment on above: Result Comment: NEGA TIVE FOR INTRAEPITHELIAL LESION OR MALIGNANCY. CELLULAR CHANGES ASSOCIATED WITH INFLAMMATION ARE PRESENT. Performed at: WB Performed By: #### [id number] #### [facility] [address] [place] [address] Dr. Tyra Poon HPV Aptima Negative Normal Negative [facility] Comment on above: Result Comment: This nucleic acid amplification test detects fourteen high-risk HPV types (16,18,31,33,35,39,45,51,52,56,58,59,66,68) without differentiation. Performed at: =G Performed By: #### [id number] #### [facility] [address] [address] [address] Tyra Poon HPV Genotype Reflex Comment Normal [facility] Comment on above: Result Comment: Crit eria not met, HPV Genotype not performed. Performed at: WB Performed By: #### [id number] #### [facility] [address] [place] [address] Dr. Tyra Poon Methodology: Comment Normal [facility] Comment on above: Result Comment: This liquid based ThinPrep(R) pap test was screened with the use of an image guided system. Performed at: WB Performed By: #### [id number] #### [facility] [address] [place] [address] Dr. Tyra Poon Note: Comment Normal [facility] Comment on above: Result Comment: The Pap smear is a screening test designed to aid in the detection of premalignant and malignant conditions of the uterine cervix. It is not a diagnostic procedure and should not be used as the sole means of detecting cervical cancer. Both false-positive and false-negative reports do occur. . Performed at: WB Performed By: #### [id number] #### [facility] [address] [place] [address] Dr. Tyra Poon Performed by: Comment Normal [facility] Comment on above: Result Comment: Sharita Watt Criminalist Technician (ASCP) Performed at: WB Performed By: #### [id number] #### [facility] [address] [place] [address] Dr. Tyra Poon Specimen adequacy: Comment Normal [facility] Comment on above: Result Comment: Sati sfactory for evaluation. Endocervical and/or squamous metaplastic cells (endocervical component) are present. Performed at: WB Performed By: #### [id number] #### [facility] [address] [place] [address] Dr. Tyra Poon US PELVIS AND TRANSVAGon [...] TIM PAZ Date: 2022-05-14 09:50 Normal [facility] AMYLASEon 04-30-2022 Amylase [Catalytic activity/Vol] 40 U/L Normal 25-115 [facility] Comment on above: Performed By: #### D DIM #### [facility] [address] [place] [address] Dr. Tyra Poon CBC AUTO DIFFon 04-30-2022 BASO # 0.1 103/ul Normal 0.0-0.1 [facility] Comment on above: Performed By: #### C BC #### [facility] [address] [address] [address] Tyra Poon Basophils/100 WBC (Bld) 1.3 % Normal 0.2-2.0 [facility] Comment on above: Performed By: #### C BC #### [facility] [address] [place] [address] Dr. Tyra Poon EO # 0.2 103/ul Normal 0.0-0.7 [facility] Comment on above: Performed By: #### C BC #### [facility] [address] [place] [address] Dr. Tyra Poon Eosinophils/100 WBC (Bld) 2.9 % Normal 0.9-7.0 [facility] Comment on above: Performed By: #### C BC #### [facility] [address] [place] [address] Dr. Tyra Poon Erythrocyte distribution width (RBC) [Ratio] 14.4 % Normal 11.0-15.0 [facility] Comment on above: Performed By: #### C BC #### [facility] [address] [place] [address] Dr. Tyra Poon Hematocrit (Bld) [Volume fraction] 36.8 % Normal 36.0-48.0 [facility] Comment on above: Performed By: #### C BC #### [facility] [address] [place] [address] Dr. Tyra Poon Hemoglobin (Bld) [Mass/Vol] 12.0 g/dL Normal 12.0-16.0 [facility] Comment on above: Performed By: #### C BC #### [facility] [address] [place] [address] Dr. Tyra Poon IG # 0.05 10e3/ul Critically high 0.00-0.03 [facility] Comment on above: Performed By: #### C BC #### [facility] [address] [place] [address] Dr. Tyra Poon IG % 0.6 % Critically high 0.0-0.5 [facility] Comment on above: Performed By: #### C BC #### [facility] [address] [place] [address] Dr. Tyra Poon LYMPH # 3.3 103/ul Normal 1.2-3.8 [facility] Comment on above: Performed By: #### C BC #### [facility] [address] [place] [address] Dr. Tyra Poon Lymphocytes/100 WBC (Bld) 38.9 % Normal 20.5-60.0 [facility] Comment on above: Performed By: #### C BC #### [facility] [address] [place] [address] Dr. Tyra Poon MANUAL DIFF REQ NO Normal [facility] Comment on above: Performed By: #### C BC #### [facility] [address] [place] [address] Dr. Tyra Poon MCH (RBC) [Entitic mass] 27.0 pg Normal 26.7-34.0 [facility] Comment on above: Performed By: #### C BC #### [facility] [address] [place] [address] Dr. Tyra Poon MCHC (RBC) [Mass/Vol] 32.6 g/dL Normal 29.9-35.2 [facility] Comment on above: Performed By: #### C BC #### [facility] [address] [place] [address] Dr. Tyra Poon MCV (RBC) [Entitic vol] 82.9 fL Normal 81.0-99.0 [facility] Comment on above: Performed By: #### C BC #### [facility] [address] [place] [address] Dr. Tyra Poon MONO # 0.6 103/ul Normal 0.3-0.8 [facility] Comment on above: Performed By: #### C BC #### [facility] [address] [place] [address] Dr. Tyra Poon Monocytes/100 WBC (Bld) 6.7 % Normal 1.7-12.0 [facility] Comment on above: Performed By: #### C BC #### [facility] [address] [place] [address] Dr. Tyra Poon NEUT # 4.2 103/ul Normal 1.4-6.5 [facility] Comment on above: Performed By: #### C BC #### [facility] [address] [place] [address] Dr. Tyra Poon Neutrophils/100 WBC (Bld) 49.6 % Normal 43.0-75.0 [facility] Comment on above: Performed By: #### C BC #### [facility] [address] [address] [address] Tyra Poon Platelet mean volume (Bld) [Entitic vol] 9.4 fL Critically low 9.5-13.5 [facility] Comment on above: Performed By: #### C BC #### [facility] [address] [address] [address] Tyra Poon PLT 347 103/ul Normal 150-450 [facility] Comment on above: Performed By: #### C BC #### [facility] [address] [address] [address] Tyra Poon RBC 4.44 106/ul Normal 4.20-5.40 [facility] Comment on above: Performed By: #### C BC #### [facility] [address] [address] [address] Tyra Poon WBC 8.4 103/ul Normal 4.0-11.0 [facility] Comment on above: Performed By: #### C BC #### [facility] [address] [place] [address] ABD/PELVIS WO CONon [...] TIM PAZ Date: 2022-04-30 10:10 Normal [facility] ER URINE PROFILEon 2 Bilirubin Ql (U) Negative Normal NEGATIVE [facility] Comment on above: Performed By: #### U AMIC #### [facility] [address] [place] [address] Dr. Tyra Poon Clarity (U) CLEAR Normal CLEAR [facility] Comment on above: Performed By: #### U AMIC #### [facility] [address] [place] [address] Dr. Tyra Poon Color (U) YELLOW Normal YELLOW [facility] Comment on above: Performed By: #### U AMIC #### [facility] [address] [address] [address] Tyra Poon ERURAJWINDER A micrscopic examination will be performed if indicated. Normal [facility] Comment on above: Performed By: #### U AMIC #### [facility] [address] [address] [address] Tyra Poon Glucose Ql (U) Negative Normal NEGATIVE [facility] Comment on above: Performed By: #### U AMIC #### [facility] [address] [address] [address] Tyra Poon Hemoglobin Ql (U) Negative Normal NEGATIVE [facility] Comment on above: Performed By: #### U AMIC #### [facility] [address] [address] [address] Tyra Poon Ketones Ql (U) Negative Normal NEGATIVE [facility] Comment on above: Performed By: #### U AMIC #### [facility] [address] [place] [address] Dr. Tyra Poon LEUKOCYTES Negative Normal NEGATIVE [facility] Comment on above: Performed By: #### U AMIC #### [facility] [address] [address] [address] Tyra Poon Nitrite Ql (U) Negative Normal NEGATIVE [facility] Comment on above: Performed By: #### U AMIC #### [facility] [address] [place] [address] Dr. Tyra Poon pH (U) 6.0 [pH] Normal 5-9 [facility] Comment on above: Performed By: #### U AMIC #### [facility] [address] [place] [address] Dr. Tyra Poon SPEC GRAVITY >=1.030 Abnormal 1.005-<=1.02 5 [facility] Comment on above: Performed By: #### U AMIC #### [facility] [address] [place] [address] Dr. Tyra Poon UA PROTEIN Negative Normal NEGATIVE/ TRACE [facility] Comment on above: Performed By: #### U AMIC #### [facility] [address] [place] [address] Dr. Tyra Poon UR MICRO IND NOT INDICATED Normal [facility] Comment on above: Performed By: #### U AMIC #### [facility] [address] [place] [address] Dr. Tyra Poon Urobilinogen Qn (U) 0.2 {[place]hoenix'U}/dL Normal 0.2 - 1. 0 [facility] Comment on above: Performed By: #### U AMIC #### [facility] [address] [place] [address] Dr. Tyra Poon LIPASEon 04-30-2022 Lipase [Catalytic activity/Vol] 83.0 U/L Normal 73.0-393.0 [facility] Comment on above: Performed By: #### D DIM #### [facility] [address] [address] [address] Trya Poon URon 04-30-2022 , QUAL Negative Normal NEGATIVE [facility] Comment on above: Performed By: #### U AMIC #### [facility] [address] [address] [address] Tyra Poon PROF 14(COMP METB)on 022 Albumin [Mass/Vol] 3.6 g/dL Normal 3.4-5.0 [facility] Comment on above: Performed By: #### D DIM #### [facility] [address] [place] [address] Dr. Tyra Poon Albumin/Globulin [Mass ratio] 0.8 {ratio} Normal [facility] Comment on above: Performed By: #### D DIM #### [facility] [address] [place] [address] Dr. Tyra Poon ALP [Catalytic activity/Vol] 65 U/L Normal 46-116 [facility] Comment on above: Performed By: #### D DIM #### [facility] [address] [place] [address] Dr. Tyra Poon ALT [Catalytic activity/Vol] 13 U/L Critically low 14-59 [facility] Comment on above: Performed By: #### D DIM #### [facility] [address] [place] [address] Dr. Tyra Poon Anion gap [Moles/Vol] 12.5 mmol/L Normal [facility] Comment on above: Performed By: #### D DIM #### [facility] [address] [place] [address] Dr. Tyra Poon AST [Catalytic activity/Vol] 12 U/L Critically low 15-37 [facility] Comment on above: Performed By: #### D DIM #### [facility] [address] [place] [address] Dr. Tyra Poon Bilirubin [Mass/Vol] 0.3 mg/dL Normal 0.2-1.0 [facility] Comment on above: Performed By: #### D DIM #### [facility] [address] [address] [address] Tyra Poon Calcium [Mass/Vol] 8.8 mg/dL Normal 8.5-10.1 [facility] Comment on above: Performed By: #### D DIM #### [facility] [address] [address] [address] Tyra Poon Chloride [Moles/Vol] 103 mmol/L Normal 98-107 [facility] Comment on above: Performed By: #### D DIM #### [facility] [address] [address] [address] Tyra Poon CO2 [Moles/Vol] 26.3 mmol/L Normal 21.0-32.0 [facility] Comment on above: Performed By: #### D DIM #### [facility] [address] [address] [address] Tyra Poon Creatinine [Mass/Vol] 0.87 mg/dL Normal 0.55-1.02 [facility] Comment on above: Performed By: #### D DIM #### [facility] [address] [address] [address] Tyra Poon EGFR-AF COLOMBIAN >60 Normal >=60 [facility] Comment on above: Performed By: #### D DIM #### [facility] [address] [address] [address] Tyra Poon EGFR-NON AF COLOMBIAN >60 Normal >=60 [facility] Comment on above: Performed By: #### D DIM #### [facility] [address] [address] [address] Tyra Poon Globulin (S) [Mass/Vol] 4.3 g/dL Normal [facility] Comment on above: Performed By: #### D DIM #### [facility] [address] [place] [address] Dr. Tyra Poon Glucose [Mass/Vol] 120 mg/dL Critically high 74-106 [facility] Comment on above: Performed By: #### D DIM #### [facility] [address] [place] [address] Dr. Tyra Poon Potassium [Moles/Vol] 3.8 mmol/L Normal 3.5-5.1 [facility] Comment on above: Performed By: #### D DIM #### [facility] [address] [place] [address] Dr. Tyra Poon Protein [Mass/Vol] 7.9 g/dL Normal 6.4-8.2 [facility] Comment on above: Performed By: #### D DIM #### [facility] [address] [place] [address] Dr. Tyra Poon Sodium [Moles/Vol] 138 mmol/L Normal 136-145 [facility] Comment on above: Performed By: #### D DIM #### [facility] [address] [place] [address] Dr. Tyra Poon Urea nitrogen [Mass/Vol] 11.0 mg/dL Normal 7.0-18.0 [facility] Comment on above: Performed By: #### D DIM #### [facility] [address] [place] [address] Dr. Tyra Poon Urea nitrogen/Creatinine [Mass ratio] 12.6 mg/mg Normal [facility] Comment on above: Performed By: #### D DIM #### [facility] [address] [place] [address] Dr. Tyra Poon CBC AUTO DIFFon 01-12-2022 BASO # 0.1 103/ul Normal 0.0-0.1 [facility] Comment on above: Performed By: #### D DIM #### [facility] [address] [place] [address] Dr. Tyra Poon Basophils/100 WBC (Bld) 0.9 % Normal 0.2-2.0 [facility] Comment on above: Performed By: #### D DIM #### [facility] [address] [place] [address] Dr. Tyra Poon EO # 0.2 103/ul Normal 0.0-0.7 [facility] Comment on above: Performed By: #### D DIM #### [facility] [address] [address] [address] Tyra Poon Eosinophils/100 WBC (Bld) 2.2 % Normal 0.9-7.0 [facility] Comment on above: Performed By: #### D DIM #### [facility] [address] [place] [address] Dr. Tyra Poon Erythrocyte distribution width (RBC) [Ratio] 14.0 % Normal 11.0-15.0 [facility] Comment on above: Performed By: #### D DIM #### [facility] [address] [place] [address] Dr. Tyra Poon Hematocrit (Bld) [Volume fraction] 34.1 % Critically low 36.0-48.0 [facility] Comment on above: Performed By: #### D DIM #### [facility] [address] [place] [address] Dr. Tyra Poon Hemoglobin (Bld) [Mass/Vol] 10.7 g/dL Critically low 12.0-16.0 [facility] Comment on above: Performed By: #### D DIM #### [facility] [address] [place] [address] Dr. Tyra Poon IG # 0.05 10e3/ul Critically high 0.00-0.03 [facility] Comment on above: Performed By: #### D DIM #### [facility] [address] [place] [address] Dr. Tyra Poon IG % 0.6 % Critically high 0.0-0.5 [facility] Comment on above: Performed By: #### D DIM #### [facility] [address] [place] [address] Dr. Tyra Poon LYMPH # 2.6 103/ul Normal 1.2-3.8 [facility] Comment on above: Performed By: #### D DIM #### [facility] [address] [place] [address] Dr. Tyra Poon Lymphocytes/100 WBC (Bld) 31.8 % Normal 20.5-60.0 [facility] Comment on above: Performed By: #### D DIM #### [facility] [address] [place] [address] Dr. Tyar Poon MANUAL DIFF REQ NO Normal [facility] Comment on above: Performed By: #### D DIM #### [facility] [address] [place] [address] Dr. Tyra Poon MCH (RBC) [Entitic mass] 26.6 pg Critically low 26.7-34.0 [facility] Comment on above: Performed By: #### D DIM #### [facility] [address] [place] [address] Dr. Tyra Poon MCHC (RBC) [Mass/Vol] 31.4 g/dL Normal 29.9-35.2 [facility] Comment on above: Performed By: #### D DIM #### [facility] [address] [place] [address] Dr. Tyra Poon MCV (RBC) [Entitic vol] 84.8 fL Normal 81.0-99.0 [facility] Comment on above: Performed By: #### D DIM #### [facility] [address] [place] [address] Dr. Tyra Poon MONO # 0.5 103/ul Normal 0.3-0.8 [facility] Comment on above: Performed By: #### D DIM #### [facility] [address] [place] [address] Dr. Tyra Poon Monocytes/100 WBC (Bld) 6.4 % Normal 1.7-12.0 [facility] Comment on above: Performed By: #### D DIM #### [facility] [address] [place] [address] Dr. Tyra Poon NEUT # 4.7 103/ul Normal 1.4-6.5 [facility] Comment on above: Performed By: #### D DIM #### [facility] [address] [place] [address] Dr. Tyra Poon Neutrophils/100 WBC (Bld) 58.1 % Normal 43.0-75.0 [facility] Comment on above: Performed By: #### D DIM #### [facility] [address] [place] [address] Dr. Tyra Poon Platelet mean volume (Bld) [Entitic vol] 9.7 fL Normal 9.5-13.5 [facility] Comment on above: Performed By: #### D DIM #### [facility] [address] [place] [address] Dr. Tyra Poon PLT 318 103/ul Normal 150-450 [facility] Comment on above: Performed By: #### D DIM #### [facility] [address] [address] [address] Tyra Poon RBC 4.02 106/ul Critically low 4.20-5.40 [facility] Comment on above: Performed By: #### D DIM #### [facility] [address] [place] [address] Dr. Tyra Poon WBC 8.0 103/ul Normal 4.0-11.0 [facility] Comment on above: Performed By: #### D DIM #### [facility] [address] [place] [address] Dr. Tyra Poon FERRITINon 01-12-2022 Ferritin [Mass/Vol] 12.0 ng/mL Normal 6.2-137.0 [facility] Comment on above: Performed By: #### D DIM #### [facility] [address] [place] [address] Dr. Tyra Poon FREE T4on 01-12-2022 Free T4 [Mass/Vol] 1.04 ng/dL Normal 0.76-1.46 [facility] Comment on above: Performed By: #### P REGQNT #### [facility] [address] [place] [address] Dr. Tyra Poon IRONon 01-12-2022 Iron [Mass/Vol] 32.0 ug/dL Critically low 50.0-170.0 [facility] Comment on above: Performed By: #### D DIM #### [facility] [address] [place] [address] Dr. Tyra Poon LIPID PROFILEon 01-12-2022 CHOL-HDL RATIO NORM SEE BELOW Normal [facility] Comment on above: Result Comment: 3.3 - 4.4 LOW RISK 4.4 - 7.1 AVERAGE RISK 7.1 - 11.0 MODERATE RISK >11.0 HIGH RISK Performed By: #### U AMIC #### [facility] [address] [address] [address] Tyra Poon Cholesterol [Mass/Vol] 236 mg/dL Critically high <=200 [facility] Comment on above: Performed By: #### U AMIC #### [facility] [address] [address] [address] Tyra Poon Cholesterol in HDL [Mass/Vol] 65 mg/dL Critically high 40-60 [facility] Comment on above: Performed By: #### U AMIC #### [facility] [address] [address] [address] Tyra Poon Cholesterol in LDL [Mass/Vol] 149.8 mg/dL Normal [facility] Comment on above: Performed By: #### U AMIC #### [facility] [address] [address] [address] Tyra Poon Cholesterol.total/Klaudia sterol in HDL [Mass ratio] 3.6 {ratio} Normal [facility] Comment on above: Performed By: #### U AMIC #### [facility] [address] [address] [address] Tyra Poon HDL NORMAL > or = 60 mg/dl - LO W CARDIOVASCULAR RISK <40 mg/dl - HIGH CARDIOVASCULAR RISK Normal [facility] Comment on above: Performed By: #### U AMIC #### [facility] [address] [address] [address] Tyra Poon LDL CALC NORMAL SEE BELOW Normal [facility] Comment on above: Result Comment: <100 mg/dl OPTIMAL 100 - 129 mg/dl NEAR OR ABOVE OPTIMAL 130 - 159 mg/dl BORDERLINE HIGH 160 - 189 mg/dl HIGH >190 mg/dl VERY HIGH Performed By: #### U AMIC #### [facility] [address] [address] [address] Tyra Poon Triglyceride [Mass/Vol] 106 mg/dL Normal <=150 [facility] Comment on above: Performed By: #### U AMIC #### [facility] [address] [address] [address] Tyra Poon VLDL CALC 21.2 mg/dL Normal [facility] Comment on above: Performed By: #### U AMIC #### [facility] [address] [address] [address] Tyra Poon PROF 14(COMP METB)on 022 Albumin [Mass/Vol] 3.4 g/dL Normal 3.4-5.0 [facility] Comment on above: Performed By: #### U AMIC #### [facility] [address] [address] [address] Tyra Poon Albumin/Globulin [Mass ratio] 0.8 {ratio} Normal [facility] Comment on above: Performed By: #### U AMIC #### [facility] [address] [place] [address] Dr. Tyra Poon ALP [Catalytic activity/Vol] 63 U/L Normal 46-116 [facility] Comment on above: Performed By: #### U AMIC #### [facility] [address] [address] [address] Tyra Poon ALT [Catalytic activity/Vol] 24 U/L Normal 14-59 [facility] Comment on above: Performed By: #### U AMIC #### [facility] [address] [address] [address] Tyra Poon Anion gap [Moles/Vol] 10.4 mmol/L Normal [facility] Comment on above: Performed By: #### U AMIC #### [facility] [address] [address] [address] Tyra Poon AST [Catalytic activity/Vol] 14 U/L Critically low 15-37 [facility] Comment on above: Performed By: #### U AMIC #### [facility] [address] [address] [address] Tyra Poon Bilirubin [Mass/Vol] 0.3 mg/dL Normal 0.2-1.0 [facility] Comment on above: Performed By: #### U AMIC #### [facility] [address] [address] [address] Tyra Poon Calcium [Mass/Vol] 8.7 mg/dL Normal 8.5-10.1 [facility] Comment on above: Performed By: #### U AMIC #### [facility] [address] [address] [address] Tyra Poon Chloride [Moles/Vol] 101 mmol/L Normal 98-107 [facility] Comment on above: Performed By: #### U AMIC #### [facility] [address] [address] [address] Tyra Poon CO2 [Moles/Vol] 29.8 mmol/L Normal 21.0-32.0 [facility] Comment on above: Performed By: #### U AMIC #### [facility] [address] [address] [address] Tyra Poon Creatinine [Mass/Vol] 0.89 mg/dL Normal 0.55-1.02 [facility] Comment on above: Performed By: #### U AMIC #### [facility] [address] [address] [address] Tyra Poon EGFR-AF COLOMBIAN >60 Normal >=60 [facility] Comment on above: Performed By: #### U AMIC #### [facility] [address] [address] [address] Tyra Poon EGFR-NON AF COLOMBIAN >60 Normal >=60 [facility] Comment on above: Performed By: #### U AMIC #### [facility] [address] [address] [address] Tyra Poon Globulin (S) [Mass/Vol] 4.3 g/dL Normal [facility] Comment on above: Performed By: #### U AMIC #### [facility] [address] [address] [address] Tyra Poon Glucose [Mass/Vol] 107 mg/dL Critically high 74-106 [facility] Comment on above: Performed By: #### U AMIC #### [facility] [address] [address] [address] Tyra Poon Potassium [Moles/Vol] 4.2 mmol/L Normal 3.5-5.1 [facility] Comment on above: Performed By: #### U AMIC #### [facility] [address] [address] [address] Tyra Poon Protein [Mass/Vol] 7.7 g/dL Normal 6.4-8.2 [facility] Comment on above: Performed By: #### U AMIC #### [facility] [address] [address] [address] Tyra Poon Sodium [Moles/Vol] 137 mmol/L Normal 136-145 [facility] Comment on above: Performed By: #### U AMIC #### [facility] [address] [place] [address] Dr. Tyra Poon Urea nitrogen [Mass/Vol] 15.0 mg/dL Normal 7.0-18.0 [facility] Comment on above: Performed By: #### U AMIC #### [facility] [address] [place] [address] Dr. Tyra Poon Urea nitrogen/Creatinine [Mass ratio] 16.9 mg/mg Normal [facility] Comment on above: Performed By: #### U AMIC #### [facility] [address] [place] [address] Dr. Tyra Poon TSHon 01-12-2022 TSH 2.550 uIU/mL Normal 0.358-3.740 [facility] Comment on above: Performed By: #### U AMIC #### [facility] [address] [place] [address] Dr. Tyra Poon UA RANDOM W/MICROSCOPICon BACTERIA NONE SEEN Normal NONE SEEN [facility] Comment on above: Performed By: #### U AMIC #### [facility] [address] [place] [address] Dr. Tyra Poon Bilirubin Ql (U) Negative Normal NEGATIVE [facility] Comment on above: Performed By: #### U AMIC #### [facility] [address] [place] [address] Dr. Tyra Poon CAST NONE SEEN Normal NONE SEEN [facility] Comment on above: Performed By: #### U AMIC #### [facility] [address] [address] [address] Tyra Poon Clarity (U) CLEAR Normal CLEAR [facility] Comment on above: Performed By: #### U AMIC #### [facility] [address] [address] [address] Tyra Poon Color (U) YELLOW Normal YELLOW [facility] Comment on above: Performed By: #### U AMIC #### [facility] [address] [address] [address] Tyra Poon Crystals LM Nom (Urine sed) NONE SEEN Normal NONE SEEN [facility] Comment on above: Performed By: #### U AMIC #### [facility] [address] [address] [address] Tyra Poon Epithelial cells LM Ql (Urine sed) RARE Normal NONE SEEN /RARE [facility] Comment on above: Performed By: #### U AMIC #### [facility] [address] [address] [address] Tyra Poon Glucose Ql (U) Negative Normal NEGATIVE [facility] Comment on above: Performed By: #### U AMIC #### [facility] [address] [address] [address] Tyra Poon Hemoglobin Ql (U) MODERATE Abnormal NEGATIVE The [facility] Comment on above: Performed By: #### U AMIC #### [facility] [address] [address] [address] Tyra Poon Ketones Ql (U) Negative Normal NEGATIVE [facility] Comment on above: Performed By: #### U AMIC #### [facility] [address] [address] [address] Tyra Poon LEUKOCYTES Negative Normal NEGATIVE [facility] Comment on above: Performed By: #### U AMIC #### [facility] [address] [address] [address] Tyra Poon MUCOUS NONE SEEN Normal NONE SEEN [facility] Comment on above: Performed By: #### U AMIC #### [facility] [address] [address] [address] Tyra Poon Nitrite Ql (U) Negative Normal NEGATIVE [facility] Comment on above: Performed By: #### U AMIC #### [facility] [address] [place] [address] Dr. Tyra Poon pH (U) 6.0 [pH] Normal 5-9 [facility] Comment on above: Performed By: #### U AMIC #### [facility] [address] [place] [address] Dr. Tyra Poon RBC 0-2 Normal 0-2 [facility] Comment on above: Performed By: #### U AMIC #### [facility] [address] [place] [address] Dr. Tyra Poon SPEC GRAVITY 1.025 Normal 1.005-<=1.02 5 [facility] Comment on above: Performed By: #### U AMIC #### [facility] [address] [place] [address] Dr. Tyra Poon UA PROTEIN Negative Normal NEGATIVE/ TRACE [facility] Comment on above: Performed By: #### U AMIC #### [facility] [address] [place] [address] Dr. Tyra Poon Urobilinogen Qn (U) 0.2 {[place]ho[place]'U}/dL Normal 0.2 - 1. 0 [facility] Comment on above: Performed By: #### U AMIC #### [facility] [address] [place] [address] Dr. Tyra Poon WBC NONE SEEN Normal NONE SEEN [facility] Comment on above: Performed By: #### U AMIC #### [facility] [address] [place] [address] Dr. Tyra Poon Vital Signs Date Time Vital Sign Value Performing Clinician Faci lity 02-12-2025 11:28-0400 Body mass index (BMI) [Ratio] 49.6 kg/m2 Aida Chaves SHIPPING SUPERVISOR Work Phone: [facility] 02-12-2025 11:28-0400 Body temperature 98.1 [degF] Aida Blackz SHIPPING SUPERVISOR Work Phone: [facility] 02-12-2025 11:28-0400 Body weight 127.01 kg Aidaallison Blackz SHIPPING SUPERVISOR Work Phone: [facility] 02-12-2025 11:28-0400 Diastolic blood pressure 84 mm[Hg] Aida Gayholz SHIPPING SUPERVISOR Work Phone: [facility] 02-12-2025 11:28-0400 Heart rate 67 /min Aida Blackz SHIPPING SUPERVISOR Work Phone: [facility] 02-12-2025 11:28-0400 Respiratory rate 18 /min Aida Waynez SHIPPING SUPERVISOR Work Phone: [facility] 02-12-2025 11:28-0400 SaO2% (BldA) [Mass fraction] 98 % Aida Blackz SHIPPING SUPERVISOR Work Phone: [facility] 02-12-2025 11:28-0400 Systolic blood pressure 116 mm[Hg] Aida Blackz SHIPPING SUPERVISOR Work Phone: [facility] 09-20-2024 13:03-0400 Body mass index (BMI) [Ratio] 47.9 kg/m2 Phil Acosta DO Work Phone: [facility] 09-20-2024 13:03-0400 Body weight 122.65 kg Phil Acosta DO Work Phone: [facility] 09-20-2024 13:03-0400 Diastolic blood pressure 78 mm[Hg] Phil Acosta DO Work Phone: [facility] 09-20-2024 13:03-0400 Systolic blood pressure 120 mm[Hg] Phil Acosta DO Work Phone: [facility] 08-30-2024 13:41-0500 Body mass index (BMI) [Ratio] 48.61 kg/m2 Aida Joehholz SHIPPING SUPERVISOR Work Phone: [facility] 08-30-2024 13:41-0500 Body temperature 98.8 [degF] Aida Blackz SHIPPING SUPERVISOR Work Phone: [facility] 08-30-2024 13:41-0500 Body weight 124.47 kg Aida Gayholz SHIPPING SUPERVISOR Work Phone: [facility] 08-30-2024 13:41-0500 Diastolic blood pressure 84 mm[Hg] Aida Joehholz SHIPPING SUPERVISOR Work Phone: [facility] 08-30-2024 13:41-0500 Heart rate 96 /min Aida Gayholz SHIPPING SUPERVISOR Work Phone: [facility] 08-30-2024 13:41-0500 SaO2% (BldA) [Mass fraction] 97 % Aida Gayholz SHIPPING SUPERVISOR Work Phone: [facility] 08-30-2024 13:41-0500 Systolic blood pressure 122 mm[Hg] Aida Joehholz SHIPPING SUPERVISOR Work Phone: [facility] 04-03-2024 15:48-0400 Body height 160 cm Aida Joehholz SHIPPING SUPERVISOR Work Phone: [facility] 04-03-2024 15:48-0400 Body mass index (BMI) [Ratio] 52.33 kg/m2 Aida Joehholz SHIPPING SUPERVISOR Work Phone: [facility] 04-03-2024 15:48-0400 Body temperature 97.81 [degF] Aida Gayholz SHIPPING SUPERVISOR Work Phone: [facility] 04-03-2024 15:48-0400 Body weight 133.99 kg Aida Joehholz SHIPPING SUPERVISOR Work Phone: [facility] 04-03-2024 15:48-0400 Diastolic blood pressure 86 mm[Hg] Aida Joehholz SHIPPING SUPERVISOR Work Phone: [facility] 04-03-2024 15:48-0400 Heart rate 89 /min Aida Joehholz SHIPPING SUPERVISOR Work Phone: [facility] 04-03-2024 15:48-0400 Respiratory rate 18 /min Aidaallison Blackz SHIPPING SUPERVISOR Work Phone: [facility] 04-03-2024 15:48-0400 SaO2% (BldA) [Mass fraction] 99 % Aida Gayholz SHIPPING SUPERVISOR Work Phone: [facility] 04-03-2024 15:48-0400 Systolic blood pressure 126 mm[Hg] Aida Joehholz SHIPPING SUPERVISOR Work Phone: [facility] 02-21-2024 15:02-0400 Body height 160 cm Aida Aichholz SHIPPING SUPERVISOR Work Phone: [facility] 02-21-2024 15:02-0400 Body mass index (BMI) [Ratio] 52.08 kg/m2 Aida Joehholz SHIPPING SUPERVISOR Work Phone: [facility] 02-21-2024 15:02-0400 Body temperature 98.8 [degF] Aida Joehholz SHIPPING SUPERVISOR Work Phone: [facility] 02-21-2024 15:02-0400 Body weight 133.36 kg Aida Joehholz SHIPPING SUPERVISOR Work Phone: [facility] 02-21-2024 15:02-0400 Diastolic blood pressure 88 mm[Hg] Aida Joehholz SHIPPING SUPERVISOR Work Phone: [facility] 02-21-2024 15:02-0400 Heart rate 79 /min Aida Joehholz SHIPPING SUPERVISOR Work Phone: [facility] 02-21-2024 15:02-0400 Respiratory rate 18 /min Aida Aichholz SHIPPING SUPERVISOR Work Phone: [facility] 02-21-2024 15:02-0400 SaO2% (BldA) [Mass fraction] 99 % Aida Joehholz SHIPPING SUPERVISOR Work Phone: [facility] 02-21-2024 15:02-0400 Systolic blood pressure 124 mm[Hg] Aida Aichholz SHIPPING SUPERVISOR Work Phone: [facility] Encounters Encounter Date Encounter Type Care Provider Facility Start: 02-23-2025 End: 02-23-2025 Departed Referred [facility] Lenora Newell DO [facility] [address] Work Phone: Start: 02-23-2025 End: 02-23-2025 ambulatory PHYSICIAN NO [facility] Work Phone: Start: 02-12-2025 End: 02-12-2025 Bamboo flowsheet Aida Chaves SHIPPING SUPERVISOR Work Phone: [facility] Start: 02-12-2025 End: 02-12-2025 Bamboo flowsheet Aida Chaves SHIPPING SUPERVISOR Work Phone: [facility] Start: 02-12-2025 End: 02-12-2025 Office outpatient visit 25 minutes Aida Chaves SHIPPING SUPERVISOR Work Phone: [facility] Comment on above: Anxiety and depressi on (Primary Dx); MARCK (obstructive sleep apnea); Primary hypertension ; Gastroesophageal reflux disease, unspecified whether esophagitis present; Edema, lower extremity; Pre-diabetes; Morbid (severe) obesity due to excess calories (CMS-HCC); Mixed hyperlipidemia ; Primary insomnia Start: 02-12-2025 End: 02-12-2025 ambulatory AIDA GAYHOLZ Not Available Start: 01-22-2025 End: 01-22-2025 Refill Aida Anastacio SHIPPING SUPERVISOR Work Phone: [facility] Comment on above: Mixed hyperlipidemia (Primary Dx) Start: 01-20-2025 End: 01-20-2025 Clinisync Result Encounter Aida Anastacio SHIPPING SUPERVISOR Work Phone: [facility] Unsolicited Start: 01-20-2025 End: 01-20-2025 Clinisync Result Encounter Aida Anastacio SHIPPING SUPERVISOR Work Phone: [facility] Unsolicited Start: 01-19-2025 End: 01-19-2025 Telephone encounter Jef Wooten MD Work Phone: [facility] Start: 11-30-2024 End: 11-30-2024 Refill Aida Waynez SHIPPING SUPERVISOR Work Phone: [facility] Comment on above: Mucocele of mouth (P rimary Dx) Start: 11-02-2024 End: 11-02-2024 Refill Aida Aichholz SHIPPING SUPERVISOR Work Phone: [facility] Comment on above: Breast abscess (Prim sanjiv Dx) Start: 09-20-2024 End: 09-20-2024 Patient encounter procedure Phil Acosta DO Work Phone: [facility] Work Phone: Start: 09-20-2024 End: 09-20-2024 Periodic preventive med est patient 40-64yrs Phil Acosta DO Work Phone: [facility] Comment on above: Well woman exam with routine gynecological exam; Breast cancer screening by mammogram Start: 09-20-2024 End: 09-20-2024 ambulatory PHIL COYO Not Available Start: 09-19-2024 End: 09-19-2024 ambulatory SANDIE PRIETO Not Available Start: 08-30-2024 End: 08-30-2024 Bamboo flowsheet Aida Anastacoi SHIPPING SUPERVISOR Work Phone: [facility] Start: 08-30-2024 End: 08-30-2024 Bamboo flowsheet Aida Anastacio SHIPPING SUPERVISOR Work Phone: [facility] Start: 08-30-2024 End: 08-30-2024 ambulatory AIDA AICHHOLZ Not Available Start: 08-30-2024 End: 08-30-2024 Office outpatient visit 25 minutes Aida Chaves SHIPPING SUPERVISOR Work Phone: [facility] Comment on [...] 08-27-2024 End: 08-27-2024 Telephone encounter Aida Chaves SHIPPING SUPERVISOR Work Phone: [facility] Start: 08-26-2024 End: 08-27-2024 Refill Aida Aichholz SHIPPING SUPERVISOR Work Phone: [facility] Comment on above: Gastro-esophageal re flux disease without esophagitis Start: 07-20-2024 End: 07-20-2024 Refill Aida Aichholz SHIPPING SUPERVISOR Work Phone: [facility] Comment on above: Dental infection (Pr imary Dx) Start: 07-03-2024 End: 07-03-2024 Telephone encounter Jef Wooten MD Work Phone: [facility] Start: 06-26-2024 End: 06-26-2024 Refill Aida Aichholz SHIPPING SUPERVISOR Work Phone: [facility] Comment on above: Pre-diabetes Start: 06-21-2024 End: 06-21-2024 Refill Aida Aichholz SHIPPING SUPERVISOR Work Phone: [facility] Comment on above: Pre-diabetes Start: 04-25-2024 End: 04-25-2024 Refill Aida Aichholz SHIPPING SUPERVISOR Work Phone: [facility] Comment on above: Nausea (Primary Dx) Start: 04-03-2024 End: 04-03-2024 Office outpatient visit 25 minutes Aida Waynez SHIPPING SUPERVISOR Work Phone: [facility] Comment on above: MARCK (obstructive sle ep apnea) (Primary Dx); Primary hypertension (CMS/HCC); Edema, lower extremity; BMI 50.0-59.9, adult (CMS/HCC); Anxiety and depression (CMS/HCC); Essential (primary) hypertension (CMS/HCC); Essential hypertension (CMS/HCC); Anxiety disorder, unspecified; Anxiety state ([facility]); Gastro-esophageal reflux disease without esophagitis; Insomnia, unspecified Start: 04-03-2024 End: 04-03-2024 Orders Only Aida Chaves NP Work Phone: [facility] Comment on above: Pre-diabetes (Primar y Dx) Start: 03-13-2024 End: 03-13-2024 Refill Aida Chaves NP Work Phone: [facility] Comment on above: Pre-diabetes (Primar y Dx); BMI 50.0-59.9, adult ([facility]); Metabolic syndrome Start: 02-25-2024 End: 02-25-2024 Orders Only Jef Wooten MD Work Phone: [facility] Comment on above: Anal or rectal pain (Primary Dx) Start: 02-23-2024 End: 02-23-2024 Bamboo flowsheet Jonatan Eitan DO Work Phone: [facility] Start: 02-23-2024 End: 02-23-2024 Bamboo flowsheet Jonatan Eitan DO Work Phone: [facility] Start: 02-23-2024 End: 02-23-2024 Office outpatient new 30 minutes Jonatan Eitan DO Work Phone: [facility] Comment on above: Encounter for diagno stic colonoscopy due to change in bowel habits (Primary Dx); Hemorrhoids, unspecified hemorrhoid type Start: 02-23-2024 End: 02-23-2024 ambulatory JONATAN EITAN Not Available Start: 02-21-2024 End: 02-21-2024 Office outpatient visit 15 minutes Aida Chaves NP Work Phone: [facility] Comment on above: Anal or rectal pain (Primary Dx); BMI 50.0-59.9, adult ([facility]); Chronic rectal pain Start: 02-21-2024 End: 02-21-2024 ambulatory AIDA CHAVES Not Available Start: 02-21-2024 End: 02-21-2024 Bamboo flowsheet Aida Waynez SHIPPING SUPERVISOR Work Phone: [facility] Start: 02-21-2024 End: 02-21-2024 Bamboo flowsheet Aida Gayholz SHIPPING SUPERVISOR Work Phone: [facility] Start: 11-27-2022 End: 11-28-2022 ambulatory ER REGISTRAR AIDA AICHHOLZ Facility:[facility] Start: 11-17-2022 End: 11-18-2022 ambulatory ER REGISTRAR AIDA AICHHOLZ Facility:[facility] Start: 09-12-2022 Encounter for preprocedural laboratory examination DR PHIL SHANE . [facility] Start: 09-11-2022 End: 09-12-2022 ambulatory ER REGISTRAR AIDA AICHHOLZ Facility:[facility] Start: 09-09-2022 End: 09-10-2022 ambulatory ER REGISTRAR AIDA AICBakariHOLZ Facility:[facility] Start: 09-09-2022 End: 09-10-2022 Encounter for preprocedural laboratory examination ER REGISTRAR AIDA AICHHOLZ Facility:[facility] Start: 09-02-2022 Encounter for preprocedural cardiovascular examination DR PHIL SHANE . [facility] Start: 08-28-2022 End: 08-29-2022 ambulatory ER REGISTRAR AIDA AICBakariHOLZ Facility:[facility] Start: 08-28-2022 End: 08-29-2022 Encounter for preprocedural cardiovascular examination ER REGISTRAR AIDA AICHHOLZ Facility:[facility] Start: 07-08-2022 End: 07-09-2022 ambulatory ER REGISTRAR AIDA AICHHOLZ Facility:[facility] Start: 05-21-2022 End: 05-21-2022 ambulatory ER REGISTRAR AIDA AICHHOLZ Facility:[facility] Start: 05-13-2022 End: 05-14-2022 ambulatory ER REGISTRAR AIDA AICHHOLZ Facility:[facility] Start: 04-30-2022 End: 04-30-2022 ambulatory LU DEMARIO . Facility:[facility] Start: 01-12-2022 End: 01-13-2022 ambulatory ER REGISTRAR AIDA AICHHOLZ Facility:[facility] Procedures Date Procedure Procedure Detail Performing Clinician Start: 01-20-2025 MLR HEMOGLOBIN A1C Aida Aichholz SHIPPING SUPERVISOR Work Phone: Start: 08-30-2024 Hemoglobin glycosyla lexy a1c Aida Chaves SHIPPING SUPERVISOR Work Phone: Start: 02-29-2024 Colonoscopy Aida ji SHIPPING SUPERVISOR Work Phone: Start: 11-15-2023 Mammography Aida ji SHIPPING SUPERVISOR Work Phone: Start: 09-15-2023 Cytp cerv/vag auto t hin layer prep mnl screen Phil Shane DO Work Phone: Plan of Treatment Date Care Activity Detail Author Start: 02-28-2034 Screening for malignant neoplasm of colon [facility] Start: 09-26-2025 End: 09-26-2025 Patient encounter procedure [facility] Start: 06-17-2025 Screening for malignant neoplasm of cervix [facility] Start: 05-04-2025 Influenza vaccination Influenza Vaccine (#1) [facility] Comment on above: Postponed from 03/05/2024 (Patient Does Not Have Time) Start: 03-25-2025 End: 01-22-2026 Alanine aminotransferase [Enzymatic activity/volume] in Serum or Plasma ALT Lab Routine Mixed hyperlipidemia Expected: 03/25/2025 (Approximate), Expires: 01/22/2026 [facility] Comment on above: Expected: 03/25/2025 (Approximate), Expi res: 01/22/2026 Start: 03-25-2025 End: 01-22-2026 Aspartate aminotransferase [Enzymatic activity/volume] in Serum or Plasma AST Lab Routine Mixed hyperlipidemia Expected: 03/25/2025 (Approximate), Expires: 01/22/2026 [facility] Comment on above: Expected: 03/25/2025 (Approximate), Expi res: 01/22/2026 Start: 03-23-2025 End: 01-22-2026 Lipid 1996 panel - Serum or Plasma Lipid panel Lab Routine Mixed hyperlipidemia Expected: 03/23/2025 (Approximate), Expires: 01/22/2026 [facility] Work Phone: Comment on above: Expected: 03/23/2025 (Approximate), Expi res: 01/22/2026 Start: 03-05-2025 Influenza vaccination Influenza Vaccine (#1) [facility] Start: 02-12-2025 End: 02-12-2025 Patient encounter procedure 02/12/2025 11:30 AM EDT Office Visit [facility] [address] [place] [address] Aida Chaves, [place] [address] [place] [id number] MARCK (obstructive sleep apnea) (Primary Dx); Primary hypertension ; Gastroesophageal reflux disease, unspecified whether esophagitis present; Edema, lower extremity; Pre-diabetes; Morbid (severe) obesity due to excess calories ([facility]); Mixed hyperlipidemia ; Anxiety and depression [facility] Comment on above: MARCK (obstructive sleep apnea) (Primary D x); Primary hypertension ; Gastroesophageal reflux disease, unspecified whether esophagitis present; Edema, lower extremity; Pre-diabetes; Morbid (severe) obesity due to excess calories ([facility]); Mixed hyperlipidemia ; Anxiety and depression Start: 01-29-2025 End: 01-29-2025 Patient encounter procedure 01/29/2025 4:00 PM EDT Office Visit [facility] [address] [place] [address] Aida Chaves, R[place]Y [address] [place] [id number] [facility] Start: 11-14-2024 Screening for malignant neoplasm of breast Mammogram [facility] Start: 09-20-2024 End: 11-20-2025 MG Breast - bilateral Screening Bilateral screening mammogram Imaging Routine Breast cancer screening by mammogram Expected: 09/20/2024 (Approximate), Expires: 11/20/2025 [facility] Work Phone: Comment on above: Expected: 09/20/2024 (Approximate), Expi res: 11/20/2025 Start: 09-20-2024 End: 09-20-2024 Patient encounter procedure 09/20/2024 1:00 PM EDT Office Visit [facility] [address] [place] [place] [address] Phil Shane, DO [address] [place] [address] [facility] Start: 08-30-2024 End: 08-30-2025 CBC W Auto Differential panel - Blood CBC and differential Lab Routine Gastroesophageal reflux disease, unspecified whether esophagitis present Expected: 08/30/2024 (Approximate), Expires: 08/30/2025 [facility] Work Phone: Comment on above: Expected: 08/30/2024 (Approximate), Expi res: 08/30/2025 Start: 08-30-2024 End: 08-30-2025 Comprehensive metabolic 2000 panel - Serum or Plasma Comprehensive metabolic panel Lab Routine Morbid (severe) obesity due to excess calories (CMS/HCC) Primary hypertension (CMS/HCC) Gastroesophageal reflux disease, unspecified whether esophagitis present Edema, lower extremity Pre-diabetes Metabolic syndrome Mixed hyperlipidemia (CMS/HCC) Expected: 08/30/2024 (Approximate), Expires: 08/30/2025 [facility] Comment on above: Expected: 08/30/2024 (Approximate), Expi res: 08/30/2025 Start: 08-30-2024 End: 08-30-2025 Lipid 1996 panel - Serum or Plasma Lipid panel Lab Routine Pre-diabetes Mixed hyperlipidemia (CMS/HCC) Expected: 08/30/2024 (Approximate), Expires: 08/30/2025 [facility] Comment on above: Expected: 08/30/2024 (Approximate), Expi res: 08/30/2025 Start: 08-30-2024 End: 08-30-2025 Microalbumin/Creatinine panel in random Urine Microalbumin / creatinine, urine ratio Lab Routine Primary hypertension (CMS/HCC) Pre-diabetes Expected: 08/30/2024 (Approximate), Expires: 08/30/2025 [facility] Comment on above: Expected: 08/30/2024 (Approximate), Expi res: 08/30/2025 Start: 08-30-2024 End: 08-30-2025 Thyrotropin [Units/volume] in Serum or Plasma TSH Lab Routine Anxiety and depression (CMS/HCC) Expected: 08/30/2024 (Approximate), Expires: 08/30/2025 [facility] Comment on above: Expected: 08/30/2024 (Approximate), Expi res: 08/30/2025 Start: 08-30-2024 End: 08-30-2025 Urinalysis complete panel - Urine Urinalysis with reflex microscopic (clean catch) Lab Routine Primary hypertension (CMS/[facility]) Pre-diabetes Expected: 08/30/2024 (Approximate), Expires: 08/30/2025 [facility] Comment on above: Expected: 08/30/2024 (Approximate), Expi res: 08/30/2025 Start: 04-03-2024 End: 04-03-2024 Patient encounter procedure 04/03/2024 3:40 PM EDT Office Visit [facility] [address] [place] [id number] Aida Chaves, ROCKY [address] [place] [address] [facility] Start: 04-03-2024 End: 04-03-2025 Basic metabolic 1998 panel - Serum or Plasma Basic metabolic panel Lab Routine Pre-diabetes Expected: 04/03/2024 (Approximate), Expires: 04/03/2025 [facility] Work Phone: Comment on above: Expected: 04/03/2024 (Approximate), Expi res: 04/03/2025 Start: 04-03-2024 End: 04-03-2025 Hemoglobin A1c/Hemoglobin.total in Blood Hemoglobin A1c Lab Routine Pre-diabetes Expected: 04/03/2024 (Approximate), Expires: 04/03/2025 [facility] Comment on above: Expected: 04/03/2024 (Approximate), Expi res: 04/03/2025 Start: 03-05-2024 Influenza vaccination Influenza Vaccine (#1) [facility] Start: 02-29-2024 End: 02-29-2024 Patient encounter procedure 02/29/2024 10:00 AM EDT Procedure Visit [facility] Jonatan Smith, [address] [place] [address] [facility] Start: 02-23-2024 End: 02-23-2024 Patient encounter procedure 02/23/2024 11:00 AM EDT Office Visit [facility] [address] [place] [id number] Jonatan Smith DO [address] [place] [id number] Arrived [facility] Comment on above: Arrived Start: 02-21-2024 End: 02-21-2024 Patient encounter procedure 02/21/2024 3:00 PM EDT Office Visit [facility] [address] [place] [phone] Aida Chaves, SHIPPING SUPERVISOR [address] [place] [address] Arrived [facility] Comment on above: Arrived Start: 2000 Screening for malignant neoplasm of cervix Pap Smear [facility] Start: 1979 Screening for malignant neoplasm of colon [facility] THIN PREP TIS PAP AN D HR HPV DNA THIN PREP TIS PAP AND HR HPV DNA Pathology and Cytology Routine Well woman exam with routine gynecological exam Ordered: 09/20/2024 [facility] Comment on above: Ordered: 09/20/2024 Immunizations Immunization Date Immunization Notes Care Provider Fa cili 05-04-2024 influenza, seasonal, injectable Aida Chaves NP Work Phone: [facility] 05-04-2024 influenza virus vacc ine, unspecified formulation Jef Wooten MD Work Phone: [facility] 04-27-2023 tetanus and diphther ia toxoids, adsorbed, preservative free, for adult use (5 Lf of tetanus toxoid and 2 Lf of diphtheria toxoid) Aida Chaves SHIPPING SUPERVISOR Work Phone: [facility] 04-15-2022 influenza, seasonal, injectable Aida Anastacio SHIPPING SUPERVISOR Work Phone: [facility] 04-15-2022 influenza virus vacc ine, unspecified formulation Aida Anastacio SHIPPING SUPERVISOR Work Phone: [facility] 10-15-2012 tetanus and diphther ia toxoids, adsorbed, preservative free, for adult use (5 Lf of tetanus toxoid and 2 Lf of diphtheria toxoid) Aida Anastacio SHIPPING SUPERVISOR Work Phone: [facility] Healthcare Payers Date Payer Category Payer [facility] [id number] 2024 Unknown [id number] 2022 Private Health Insurance [employer] [id number] 2022 Unknown [employer] [facility] [employer] [id number] 2022-Present [phone] [address] [place] [address] [id number] 2022 Unknown [id number] 2022 Unknown [id number] 1979 Unknown [id number] 2.16.840.1.874394.3.579.2. 593 1979 Unknown [id number] 2.16.840.1.485729.3.579.2. 593 1979 Unknown [id number] 2.16.840.1.098050.3.579.2. 593 1979 Unknown [id number] 2.16.840.1.770491.3.579.2. 593 1979 Unknown [id number] 2.16.840.1.631953.3.579.2. 593 1979 Unknown [id number] 2.16.840.1.884955.3.579.2. 593 1979 Unknown [id number] 2.16.840.1.623991.3.579.2. 593 1979 Unknown [id number] 2.16.840.1.770082.3.579.2. 593 1979 Unknown [id number] 2.16.840.1.387335.3.579.2. 593 1979 Unknown [id number] 2.16.840.1.845934.3.579.2. 593 1979 Unknown [id number] 2.16.840.1.343969.3.579.2. 1259 1979 Unknown [id number] 2.16.840.1.210527.3.579.2. 1259 1979 Unknown [id number] 2.16.840.1.815174.3.579.2. 1259 1979 Unknown [id number] 2.16.840.1.193370.3.579.2. 1259 1979 Unknown [id number] 2.16.840.1.827492.3.579.2. 1259 1979 Unknown [id number] 2.16.840.1.665952.3.579.2. 1259 1979 Unknown [id number] 2.16.840.1.725403.3.579.2. 1259 1959 Private Health Insurance [id number] 1959 Self-pay Unknown [id number] 2.16.840.1.359535.3.579.2. 593 Unknown O [id number] Unknown [place] [employer] [id number] Unknown [facility]-O [id number] Unknown [id number] 2.16.840.1.534620.3.579.2. 531 Social History Date Type Detail Facility Start: 01-13-2023 Tobacco smoking stat [facility] Never smoked tobacco [facility] Start: 01-13-2023 Tobacco use and exposure Smoke less tobacco non-user [facility] Start: 04-03-2024 End: 02-12-2025 Alcoholic beverage intake Lifetime non-drinker (finding) [facility] Start: 08-01-2023 End: 02-12-2025 History of Social function [facility] Start: 08-01-2023 End: 02-12-2025 Humiliation, Afraid, Rape, and Kick questionnaire [HARK] [...] Sex assigned at Not on file [facility] How often to you hav e a drink containing alcohol? 2-4 times a month [facility] How many standard dr inks containing alcohol do you have on a typical day? 1 or 2 [facility] Do you feel stress - tense, restless, nervous, or anxious, or unable to sleep at night because your mind is troubled all the time - these days [OSQ] Not at all [facility] Work Phone: Sex Female (finding) [facility] Start: 1980 Sex Assigned At Female F [facility] Functional Status Date Assessment Result Facility 02-12-2025 Total score [AUDIT-C] 2 02/13/20 25 11:11 AM EDT Mychart, Generic [facility] 02-12-2025 How often to you hav e a drink containing alcohol? 2-4 times a month 02/12/2025 11:11 AM EDT Mychart, Generic 2-4 times a month [facility] 02-12-[address] inks containing alcohol do you have on a typical day? 1 or 2 02/12/2025 11:11 AM EDT Mychart, Generic 1 or 2 [facility] 02-12-2025 How often do you hav e 6 or more drinks on 1 occasion? Never 02/12/2025 11:11 AM EDT Jose, Generic Never [facility] Healthcare Clinical Notes 09-11-2022 to 02-12-2025 Aida Chaves, SHIPPING SUPERVISOR - 02/12/2025 11:30 AM Raúl Chaves, SHIPPING SUPERVISOR - 02/12/2025 6:45 AM Raúl Chaves, SHIPPING SUPERVISOR - 02/12/2025 6:44 AM Raúl Chaves, SHIPPING SUPERVISOR - 02/12/2025 6:43 AM EDTPatient Instructions Note Date & Type Note Facility 02-12-2025 History of Presen t illness Narrative Images from the original note were not included. Laverne Roca is a 44 y.o. female presents with chief complaint of Diabetes HPI: Diabetes She presents for her follow-up diabetic visit. Diabetes type: pre diabetes. Hypoglycemia symptoms include nervousness/anxiousness. Pertinent negatives for hypoglycemia include no dizziness, headaches, seizures or tremors. There are no diabetic associated symptoms. Pertinent negatives for diabetes include no chest pain (occ), no polydipsia, no polyphagia and no polyuria. There are no hypoglycemic complications. Symptoms are stable. There are no diabetic complications. Pertinent negatives for diabetic complications include no PVD. Risk factors for coronary artery disease include dyslipidemia, hypertension, obesity and sedentary lifestyle. Current diabetic treatments: GLP 1. She never participates in exercise. An ASIA inhibitor/angiotensin II receptor shanna is being taken. She does not see a pumper helper.Eye exam is current. Hypertension This is a chronic problem. The current episode started more than 1 year ago. The problem is unchanged. The problem is controlled. Associated symptoms include anxiety. Pertinent negatives include no chest pain (occ), headaches, orthopnea, palpitations, peripheral edema, PND or shortness of breath. There are no associated agents to hypertension. Risk factors for coronary artery disease include dyslipidemia, diabetes mellitus, obesity and sedentary lifestyle. Past treatments include beta blockers, calcium channel blockers, diuretics and ASIA inhibitors. The current treatment provides significant improvement. There are no compliance problems. There is no history of CAD/AR, heart failure or PVD. Anxiety Presents for follow-up visit. Symptoms include excessive worry (about 's health, daughter who is adult and is autistic), irritability (at times), muscle tension and nervous/anxious behavior. Patient reports no chest pain (occ), depressed mood, dizziness, insomnia, nausea, palpitations, shortness of breath or suicidal ideas. Symptoms occur most days. The severity of symptoms is moderate. The quality of sleep is good. Compliance with medications is 76-100%. SUBJECTIVE: MEDICATIONS: Current Outpatient Medications Medication Instructions amLODIPine (NORVASC) 10 mg, Oral, Daily atorvastatin (LIPITOR) 10 mg, Oral, Every evening buPROPion XL (WELLBUTRIN XL) 150 mg, Oral, Daily busPIRone (BUSPAR) 20 mg, Oral, 2 times daily Cariprazine HCl [...] SYMPTOMS: Review of Systems Constitutional: Positive for irritability (at times). Negative for appetite change, chills and fever. HENT: Negative for congestion, ear pain and sore throat. Eyes: Negative for pain, discharge, redness and visual disturbance. Respiratory: Negative for cough, shortness of breath and wheezing. Cardiovascular: Negative for chest pain (occ), palpitations, orthopnea, leg swelling and PND. Gastrointestinal: Negative for abdominal pain, blood in stool, constipation, diarrhea, nausea and vomiting. Genitourinary: Negative for difficulty urinating, dysuria and frequency. Musculoskeletal: Negative for arthralgias, back pain, joint swelling and myalgias. Skin: Negative for rash and wound. Neurological: Negative for dizziness, tremors, seizures, syncope and headaches. Psychiatric/Behavioral: Negative for behavioral problems, self-injury and suicidal ideas. The patient is nervous/anxious. The patient does not have insomnia. Hematological: Does not bruise/bleed easily. Endocrine: Negative for polydipsia, polyphagia and polyuria. Allergic/Immunologic: Negative for environmental allergies and food allergies. PAST MEDICAL HISTORY Past Medical History: Diagnosis Date Allergic rhinitis Anxiety and depression 06/29/2023 Chest pain Chronic migraine without aura without status migrainosus, not intractable 06/17/2023 Edema, lower extremity 07/02/2023 Family history of thyroid disease Gastroesophageal reflux disease, unspecified whether esophagitis present 08/23/2023 Hemorrhoids HLD (hyperlipidemia) 08/02/2023 labs: 01/12/22: TC 236 HDL 65 Trigs 106 [id number] HTN (hypertension) 08/02/2023 Insomnia 08/23/2023 Iron deficiency anemia Lower extremity edema 08/02/2023 MARCK (obstructive sleep apnea) 08/23/2023 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HCC) 08/23/2023 Tricuspid regurgitation 08/23/2023 Past Surgical History: Procedure Laterality Date SECTION, CLASSIC DILATION AND CURETTAGE OF UTERUS HYSTERECTOMY 09/11/2022 still has ovaries TONSILLECTOMY family history includes Cancer in her father; Selena's thyroiditis in her mother; Heart disease in her father; Hypertension in her father and mother. OBJECTIVE: Visit Vitals BP 116/84 (BP Location: Left arm, Patient Position: Sitting, BP Cuff Size: Large adult) Pulse 67 Temp 98.1 F (Temporal) Resp 18 Wt 280 lb SpO2 98% BMI 49.60 kg/m OB Status Hysterectomy Smoking Status Never BSA 2.38 m Physical Exam Vitals and nursing note [...] Normal pulses. Heart sounds: Normal heart sounds. No murmur heard. Pulmonary: Effort: Pulmonary effort is normal. Breath sounds: Normal breath sounds. No wheezing or rhonchi. Abdominal: General: Bowel [...] ASSESSMENT AND PLAN: Follow up in about 2 months (around 04/14/2025) for Recheck. Problem List Items Addressed This Visit Anxiety and depression - Primary Current meds: buproprion, buspar, vraylar, lexapro, and trazodone Feels needs something more for her anxiety, I will increase her buspar to 20mg BID Fu in 8 weeks Recommend counseling, is going through work employer transition and insurance, will discuss at fu appt Relevant Medications Cariprazine HCl (Vraylar) 1.5 MG capsule escitalopram (Lexapro) 20 MG tablet busPIRone (Buspar) 10 MG tablet Edema, lower extremity Limit sodium, elevate legs, compression stockings Takes lasix as well HLD (hyperlipidemia) On statin therapy Check labs yearly and prn dose changes HTN (hypertension) Please check blood pressure daily and record DASH diet Limit caffeine Take medication as directed Contact office if chest pain, pressure, dizziness, shortness of breath, swelling legs Recommend slow position changes Current meds: carvedilol, asia/hydrochlorothiazide Relevant Medications amLODIPine (Norvasc) 10 MG tablet carvedilol (Coreg) 3.125 MG tablet lisinopril-hydroCHLOROthiazide 20-12.5 MG tablet MARCK (obstructive sleep apnea) You have a diagnosis of obstructive sleep apnea. It is recommended that you wear your PAP device any time while in bed sleeping. Not using the PAP device can increase your risk of elevated/uncontrolled high blood pressure, atrial fibrillation, heart attack, stroke, or sudden . Never got PAP machine Insomnia Relevant Medications traZODone (Desyrel) 150 MG tablet Gastroesophageal reflux disease, unspecified whether esophagitis present Recommendations: freq small meals, nothing to eat or drink at least 2 hours prior to bed, limit caffeine, alcohol, as well as spicy foods Meds to limit or avoid if possible: NSAIDS Elevate HOB if possible Current meds: pantoprazole Relevant Medications pantoprazole (ProtoNix) 40 MG EC tablet Pre-diabetes Check blood sugars daily, notify if <70 [...] diarrhea Current meds: ozempic, statin, asia A1c: Relevant Medications semaglutide (Ozempic, 1 MG/DOSE,) 4 MG/3ML solution pen-injector Other Relevant Orders POCT glycosylated hemoglobin (Hb A1C) docked device Morbid (severe) obesity due to excess calories ([facility]) Discussed with patient their BMI (actual, verses recommended). We have also discussed lifestyle modifications: attempts to perform physical activity as chronic conditions allow, also to monitor dietary intake: increasing protein/fruits/veggies and lowering carb intake (unless contraindicated). Limit sodas, juices, and sugary drinks. Has been taking Ozempic Associated Problem(s): Anxiety and depression Current meds: buproprion, buspar, vraylar, lexapro, and trazodone Feels needs something more for her anxiety, I will increase her buspar to 20mg BID Fu in 8 weeks Recommend counseling, is going through work employer transition and insurance, will discuss at fu appt Associated Problem(s): HLD (hyperlipidemia) On statin therapy Check labs yearly and prn dose changes Associated Problem(s): Morbid (severe) obesity due to excess calories ([facility]) Discussed with patient their BMI (actual, verses recommended). We have also discussed lifestyle modifications: attempts to perform physical activity as chronic conditions allow, also to monitor dietary intake: increasing protein/fruits/veggies and lowering carb intake (unless contraindicated). Limit sodas, juices, and sugary drinks. Has been taking Ozempic Associated Problem(s): Pre-diabetes Check blood sugars daily, notify if <70 [...] diarrhea Current meds: ozempic, statin, asia A1c: Associated Problem(s): Edema, lower extremity Limit sodium, [...] if possible Current meds: pantoprazole Associated Problem(s): HTN (hypertension) Please check blood pressure daily and record DASH diet Limit caffeine Take medication as directed Contact office if chest pain, pressure, dizziness, shortness of breath, swelling legs Recommend slow position changes Current meds: carvedilol, asia/hydrochlorothiazide Associated Problem(s): MARCK (obstructive sleep apnea) You have a diagnosis of obstructive sleep apnea. It is recommended that you wear your PAP device any time while in bed sleeping. Not using the PAP device can increase your risk of elevated/uncontrolled high blood pressure, atrial fibrillation, heart attack, stroke, or sudden . Never got PAP machine documented in this encounter [facility] 01-19-2025 Telephone encount er Note Sent [facility] 01-19-2025 Miscellaneous Notes Formattin g of this note might be different from the original. Sent Patient would like an order for z pack sent to [facility]. an documented in this encounter [facility] 01-19-2025 Telephone encount er Note Patient would like an order for z pack sent to [facility]. an [facility] 11-30-2024 History of Presen t illness Narrative Associated Problem(s): Mucocele of mouth New dentures in the last 3 months, has a lump to lower gum line, very tender, increasing jaw pain, and called denist, cannot get in until: 12/12/24 I examined the area, it looks to be more of a mucocele, no purulent drainage noted Will cover with atb documented in this encounter [facility] 11-02-2024 History of Presen t illness Narrative Associated Problem(s): Breast abscess Right breast, recurrent, gets drainage out, no fever, chills, documented in this encounter [facility] 11-02-2024 Telephone encount er Note Warm compress, alert provider if not better or resolved with this [facility] 11-02-2024 Miscellaneous Notes Formattin g of this note might be different from the original. Warm compress, alert provider if not better or resolved with this documented in this encounter [facility] 09-20-2024 History of Presen t illness Narrative Reason for Appointment: Patient ID: Laverne Roca is a 44 y.o. female who presents for [facility] Visit Patient presents today for Annual [...] without aura without status migrainosus, not intractable ([facility]) 06/17/2023 Anxiety and depression ([facility]) 06/29/2023 Edema, lower extremity 07/02/2023 Screening mammogram for breast cancer 08/02/2023 Body mass index (BMI) 50.0-59.9, adult ([facility]) 08/02/2023 HLD (hyperlipidemia) ([facility]) 08/02/2023 HTN (hypertension) ([facility]) 08/02/2023 Abnormal weight gain 08/02/2023 MARCK (obstructive sleep apnea) 08/23/2023 Insomnia 08/23/2023 Tricuspid regurgitation 08/23/2023 Secondary pulmonary arterial hypertension ([facility]) 08/23/2023 Gastroesophageal reflux disease, unspecified whether esophagitis present 08/23/2023 Diarrhea 10/13/2023 Family history of premature CAD 11/04/2023 Pre-diabetes 11/04/2023 Other hemorrhoids 02/09/2024 Anal or rectal pain 02/21/2024 Metabolic syndrome 03/13/2024 Nausea 04/25/2024 Dental infection 07/20/2024 Morbid (severe) obesity due to excess calories ([facility]) 08/30/2024 Resolved Ambulatory Problems Diagnosis Date Noted URI, acute 10/13/2023 Elevated glucose 10/21/2023 Chronic rectal pain 02/21/2024 Past Medical History: Diagnosis Date Allergic rhinitis Chest pain Family history of thyroid disease Hemorrhoids Iron deficiency anemia Lower extremity edema 08/02/2023 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[facility]) 08/23/2023 HISTORY PAST MEDICAL HISTORY SOCIAL HISTORY Past Medical History: Diagnosis Date Allergic rhinitis Anxiety and depression ([facility]) 06/29/2023 Chest pain Chronic migraine without aura without status migrainosus, not intractable ([facility]) 06/17/2023 Edema, lower extremity 07/02/2023 Family history of thyroid disease Gastroesophageal reflux disease, unspecified whether esophagitis present 08/23/2023 Hemorrhoids HLD (hyperlipidemia) ([facility]) 08/02/2023 labs: 01/12/22: TC 236 HDL 65 Trigs 106 [id number] HTN (hypertension) ([facility]) 08/02/2023 Insomnia 08/23/2023 Iron deficiency anemia Lower extremity edema 08/02/2023 MARCK (obstructive sleep apnea) 08/23/2023 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 Exam conducted with a machine iii coremaker present. Vitals: Estimated body mass index is [...] by Karyn Linares LPN on behalf of: Phil Shane DO documented in this encounter [facility] 08-30-2024 History of Presen t illness Narrative Right forearm pain-sunburn pain when being touched started last night. Images from the original note were not included. Laverne Roca is a 44 y.o. female presents [...] calcium channel blockers, angiotensin blockers, diuretics and ASIA inhibitors. The current treatment provides significant improvement. There are no compliance problems. There is no history of kidney disease, CAD/AR, heart failure or left ventricular hypertrophy. Anxiety [...] Diagnosis Date Allergic rhinitis Anxiety and depression ([facility]) 06/29/2023 Chest pain Chronic migraine without aura without status migrainosus, not intractable ([facility]) 06/17/2023 Edema, lower extremity 07/02/2023 Family history of thyroid disease Gastroesophageal reflux disease, unspecified whether esophagitis present 08/23/2023 Hemorrhoids HLD (hyperlipidemia) ([facility]) 08/02/2023 labs: 01/12/22: TC 236 HDL 65 Trigs 106 [id number] HTN (hypertension) ([facility]) 08/02/2023 Insomnia 08/23/2023 Iron deficiency anemia Lower [...] Addressed This Visit Anxiety and depression (CMS/HCC) PHQ 9=3 JESUS [...] panel Body mass index (BMI) 50.0-59.9, adult ([facility]) HLD (hyperlipidemia) ([facility]) Check labs Relevant Orders Comprehensive metabolic panel Lipid panel HTN (hypertension) ([facility]) - Primary Please check blood pressure daily and record DASH diet Limit caffeine Take medication as directed Contact office if chest pain, pressure, dizziness, shortness of breath, swelling legs Recommend slow position changes Current meds: carvedilol, asia/hydrochlorothiazide Relevant Medications amLODIPine (Norvasc) 10 MG tablet [...] 150 MG tablet Secondary pulmonary arterial hypertension ([facility]) Per ECHO findings Gastroesophageal reflux disease, unspecified [...] slow position changes Current meds: carvedilol, asia/hydrochlorothiazide Associated Problem(s): MARCK (obstructive sleep apnea) You [...] trazodone at HS documented in this encounter [facility] 08-30-2024 Instructions Aida Chaves NP - 08/30/2024 1:40 PM EST Get labs done: fasting Keep up the great work on your weight loss documented in this encounter [facility] 08-27-2024 Telephone encount er Note Needs a fu appt in the next few weeks [place] [facility] 08-27-2024 Miscellaneous Notes Formattin g of this note might be different from the original. Needs a fu appt in the next few weeks [place] documented in this encounter [facility] 07-03-2024 Telephone encount er Note [facility] not have ozempic in stock, can you resend 90 day script for ozempic to [facility] [place] [facility] 07-03-2024 Miscellaneous Notes Formattin g of this note might be different from the original. [facility] does not have [facility]em[facility] in stock, can you resend 90 day script for ozempic to [facility] [place] documented in this encounter [facility] 04-03-2024 History of Presen t illness Narrative [...] from the original note were not included. Laverne Roca is a 43 y.o. female presents [...] compliance problems. There is no history of CAD/AR. Diabetes She has type 2 diabetes mellitus. [...] sedentary lifestyle. Current diabetic treatments: ozempic. An ASIA inhibitor/angiotensin II receptor shanna is being taken. She does not see a pumper helper.Eye exam is current. SUBJECTIVE: MEDICATIONS: Current Outpatient [...] Diagnosis Date Allergic rhinitis Anxiety and depression ([facility]) 06/29/2023 Chest pain Chronic migraine without aura without status migrainosus, not intractable ([facility]) 06/17/2023 Edema, lower extremity 07/02/2023 Family history of thyroid disease Gastroesophageal reflux disease, unspecified whether esophagitis present 08/23/2023 Hemorrhoids HLD (hyperlipidemia) ([facility]) 08/02/2023 labs: 01/12/22: TC 236 HDL 65 Trigs 106 [id number] HTN (hypertension) ([facility]) 08/02/2023 Insomnia 08/23/2023 Iron deficiency anemia Lower extremity edema 08/02/2023 MARCK (obstructive sleep apnea) 08/23/2023 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 female presents [...] Diagnosis Date Allergic rhinitis Anxiety and depression ([facility]) 06/29/2023 Chest pain Chronic migraine without aura without status migrainosus, not intractable ([facility]) 06/17/2023 Edema, lower extremity 07/02/2023 Family history of thyroid disease Gastroesophageal reflux disease, unspecified whether esophagitis present 08/23/2023 Hemorrhoids HLD (hyperlipidemia) ([facility]) 08/02/2023 labs: 01/12/22: TC 236 HDL 65 Trigs 106 [id number] HTN (hypertension) ([facility]) 08/02/2023 Insomnia 08/23/2023 Iron deficiency anemia Lower extremity edema 08/02/2023 MARCK (obstructive sleep apnea) 08/23/2023 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 Laverne Roca is a 43 y.o. female presents [...] Diagnosis Date Allergic rhinitis Anxiety and depression ([facility]) 06/29/2023 Chest pain Chronic migraine without aura without status migrainosus, not intractable ([facility]) 06/17/2023 Edema, lower extremity 07/02/2023 Family history of thyroid disease Gastroesophageal reflux disease, unspecified whether esophagitis present 08/23/2023 Hemorrhoids HLD (hyperlipidemia) ([facility]) 08/02/2023 labs: 01/12/22: TC 236 HDL 65 Trigs 106 [id number] HTN (hypertension) ([facility]) 08/02/2023 Insomnia 08/23/2023 Iron deficiency anemia Lower extremity edema 08/02/2023 MARCK (obstructive sleep apnea) 08/23/2023 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 PREOPERATIVE DIAGNOSIS: Cervical dysplasia, history of abnormal cervical cells, menorrhagia, dyspareunia, dysmenorrhea. POSTOPERATIVE DIAGNOSIS: Cervical dysplasia, history of abnormal cervical cells, menorrhagia, dyspareunia, dysmenorrhea. ANESTHESIA: General. SURGEON: Phil Shane D.O. TAX ECONOMIST: JOSH Gonzales URINE OUTPUT: Yellow and clear. [...] Anesthesia first. Patient tolerated procedure well. [facility] 09-11-2022 Note DISCHARGE SUMMARY NOTE DATE: [...] free and no longer on narcotics. [facility] 09-11-2022 Note OPERATIVE NOTE OPERATION DATE: 09/12/2022 PROCEDURE: Robotic assisted laparoscopic hysterectomy with bilateral salpingectomy with cystoscopy. PREOPERATIVE DIAGNOSIS: Cervical dysplasia, history of abnormal cervical cells, menorrhagia, dyspareunia, dysmenorrhea. POSTOPERATIVE DIAGNOSIS: Cervical dysplasia, history of abnormal cervical cells, menorrhagia, dyspareunia, dysmenorrhea. ANESTHESIA: General. SURGEON: Phil Shane D.O. TAX ECONOMIST: JOSH Gonzales URINE OUTPUT: Yellow and clear. [...] Anesthesia first. Patient tolerated procedure well. [facility] Evaluation note Diagnosis Anxiety and depression [...] Primary Unspecified essential hypertension Essential (primary) hypertension (CMS/HCC) Unspecified essential hypertension Essential hypertension (CMS/HCC) Unspecified essential hypertension Anxiety disorder, unspecified Anxiety state (CMS/HCC) Anxiety state, unspecified Anxiety and depression ([facility]) Edema, lower extremity Allergic rhinitis, unspecified Allergic rhinitis Allergic rhinitis, cause unspecified Gastro-esophageal reflux disease without esophagitis Insomnia, unspecified MARCK (obstructive sleep apnea) Obstructive sleep apnea (adult) (pediatric) Primary insomnia Persistent disorder of initiating or maintaining sleep Gastroesophageal reflux disease, unspecified whether esophagitis present Lower extremity edema Edema BMI 50.0-59.9, adult ([facility]) Pre-diabetes Other abnormal glucose Anal or rectal pain- Primary BMI 50.0-59.9, adult ([facility]) Chronic rectal pain Pre-diabetes- Primary Other abnormal glucose MARCK (obstructive sleep apnea) Obstructive sleep apnea (adult) (pediatric) Primary hypertension ([facility]) Unspecified essential hypertension Edema, lower extremity BMI 50.0-59.9, adult ([facility]) Anxiety and depression ([facility] Essential (primary) hypertension ([facility]) Unspecified essential hypertension Essential hypertension ([facility]) Unspecified essential hypertension Anxiety disorder, unspecified Anxiety state ([facility]) Anxiety state, unspecified Gastro-esophageal reflux disease without esophagitis Insomnia, unspecified Nausea- Primary Nausea alone documented in this encounter [facility] HealthcareEvaluation [facility]* Diagnosis Anal or rectal pain- Primary BMI 50.0-59.9, adult ([facility]) Chronic rectal pain documented in this encounter [facility] HealthcareEvaluation note* Diagnosis Anxiety and depression ([facility])- Primary Screening mammogram for breast cancer BMI 50.0-59.9, adult ([facility]) Lower extremity edema Edema Primary hypertension ([facility] Unspecified essential hypertension Mixed hyperlipidemia ([facility]) Mixed hyperlipidemia Abnormal weight gain Anxiety and depression ([facility])- Primary Family history of premature CAD Family history of ischemic heart disease Primary hypertension ([facility]) Unspecified essential hypertension MARCK (obstructive sleep apnea) Obstructive sleep apnea (adult) (pediatric) Pre-diabetes Other abnormal glucose BMI 50.0-59.9, adult ([facility]) Primary hypertension ([facility])- Primary [facility]specified essential hypertension Essential (primary) hypertension ([facility]) Unspecified essential hypertension Essential hypertension ([facility]) Unspecified essential hypertension Anxiety disorder, unspecified Anxiety state ([facility]) Anxiety state, unspecified Anxiety and depression ([facility]) Edema, lower extremity Allergic rhinitis, unspecified Allergic rhinitis Allergic rhinitis, cause unspecified Gastro-esophageal reflux disease without esophagitis Insomnia, unspecified MARCK (obstructive sleep apnea) Obstructive sleep apnea (adult) (pediatric) Primary insomnia Persistent disorder of initiating or maintaining sleep Gastroesophageal reflux disease, unspecified whether esophagitis present Lower extremity edema Edema BMI 50.0-59.9, adult ([facility]) Pre-diabetes Other abnormal glucose Anal or rectal pain- Primary BMI 50.0-59.9, adult ([facility]) Chronic rectal pain Pre-diabetes- Primary Other abnormal glucose MARCK (obstructive sleep apnea) Obstructive sleep apnea (adult) (pediatric) Primary hypertension ([facility]) Unspecified essential hypertension Edema, lower extremity BMI 50.0-59.9, adult ([facility]) Anxiety and depression ([facility] Essential (primary) hypertension ([facility]) Unspecified essential hypertension Essential hypertension ([facility]) Unspecified essential hypertension Anxiety disorder, unspecified Anxiety state ([facility]) Anxiety state, unspecified Gastro-esophageal reflux disease without [...] Primary Other abnormal glucose BMI 50.0-59.9, adult ([facility]) Metabolic syndrome Dysmetabolic Syndrome X documented in this encounter [facility] note* Diagnosis Pre-diabetes- Primary Other abnormal glucose documented in this encounter [facility]* Diagnosis MARCK (obstructive sleep apnea)- Primary Obstructive sleep apnea (adult) (pediatric) Primary hypertension ([facility]) Unspecified essential hypertension Edema, lower extremity BMI 50.0-59.9, adult ([facility]) Anxiety and depression ([facility] Essential (primary) hypertension ([facility]) Unspecified essential hypertension Essential hypertension ([facility]) Unspecified essential hypertension Anxiety disorder, unspecified Anxiety state ([facility]) Anxiety state, unspecified Gastro-esophageal reflux disease without esophagitis Insomnia, unspecified documented in this encounter [facility]* Diagnosis Anxiety and depression ([facility])- Primary Screening mammogram for breast cancer BMI 50.0-59.9, adult ([facility]) Lower extremity edema Edema Primary hypertension ([facility]) Unspecified essential hypertension Mixed hyperlipidemia ([facility]) Mixed hyperlipidemia Abnormal weight gain Anxiety and depression ([facility])- Primary Family history of premature CAD Family history of ischemic heart disease Primary hypertension ([facility]) Unspecified essential hypertension MARCK (obstructive sleep apnea) Obstructive sleep apnea (adult) (pediatric) Pre-diabetes Other abnormal glucose BMI 50.0-59.9, adult ([facility]) Primary hypertension ([facility])- Primary Unspecified essential hypertension Essential (primary) hypertension ([facility]) Unspecified essential hypertension Essential hypertension ([facility]) Unspecified essential hypertension Anxiety disorder, unspecified Anxiety state ([facility]) Anxiety state, unspecified Anxiety and depression ([facility]) Edema, lower extremity Allergic rhinitis, unspecified Allergic rhinitis Allergic rhinitis, cause unspecified Gastro-esophageal reflux disease without esophagitis Insomnia, unspecified MARCK (obstructive sleep apnea) Obstructive sleep apnea (adult) (pediatric) Primary insomnia Persistent disorder of initiating or maintaining sleep Gastroesophageal reflux disease, unspecified whether esophagitis present Lower extremity edema Edema BMI 50.0-59.9, adult ([facility]) Pre-diabetes Other abnormal glucose Anal or rectal pain- Primary BMI 50.0-59.9, adult ([facility]) Chronic rectal pain Pre-diabetes- Primary Other abnormal glucose MARCK (obstructive sleep apnea) Obstructive sleep apnea (adult) (pediatric) Primary hypertension ([facility]) Unspecified essential hypertension Edema, lower extremity BMI 50.0-59.9, adult ([facility]) Anxiety and depression ([facility] Essential (primary) hypertension ([facility]) Unspecified essential hypertension Essential hypertension ([facility]) Unspecified essential hypertension Anxiety disorder, unspecified Anxiety state ([facility]) Anxiety state, unspecified Gastro-esophageal reflux disease without esophagitis Insomnia, unspecified Pre-diabetes Other abnormal glucose documented in this encounter [facility] HealthcareEvaluation note* Diagnosis Anxiety and depression ([facility])- Primary Screening mammogram for breast cancer BMI 50.0-59.9, adult ([facility]) Lower extremity edema Edema Primary hypertension ([facility]) Unspecified essential hypertension Mixed hyperlipidemia ([facility]) Mixed hyperlipidemia Abnormal weight gain Anxiety and depression ([facility])- Primary Family history of premature CAD Family history of ischemic heart disease Primary hypertension ([facility]) Unspecified essential hypertension MARCK (obstructive sleep apnea) Obstructive sleep apnea (adult) (pediatric) Pre-diabetes Other abnormal glucose BMI 50.0-59.9, adult ([facility]) Primary hypertension ([facility])- Primary Unspecified essential hypertension Essential (primary) hypertension ([facility] Unspecified essential hypertension Essential hypertension ([facility]) Unspecified essential hypertension Anxiety disorder, unspecified Anxiety state ([facility]) Anxiety state, unspecified Anxiety and depression ([facility]) Edema, lower extremity Allergic rhinitis, unspecified Allergic rhinitis Allergic rhinitis, cause unspecified Gastro-esophageal reflux disease without esophagitis Insomnia, unspecified MARCK (obstructive sleep apnea) Obstructive sleep apnea (adult) (pediatric) Primary insomnia Persistent disorder of initiating or maintaining sleep Gastroesophageal reflux disease, unspecified whether esophagitis present Lower extremity edema Edema BMI 50.0-59.9, adult ([facility]) Pre-diabetes Other abnormal glucose Anal or rectal pain- Primary BMI 50.0-59.9, adult ([facility]) Chronic rectal pain Pre-diabetes- Primary Other abnormal glucose MARCK (obstructive sleep apnea) Obstructive sleep apnea (adult) (pediatric) Primary hypertension ([facility]) Unspecified essential hypertension Edema, lower extremity BMI 50.0-59.9, adult ([facility]) Anxiety and depression ([facility] Essential (primary) hypertension ([facility]) Unspecified essential hypertension Essential hypertension ([facility]) Unspecified essential hypertension Anxiety disorder, unspecified Anxiety state ([facility]) Anxiety state, unspecified Gastro-esophageal reflux disease without esophagitis Insomnia, unspecified Dental infection- Primary documented in this encounter [facility]* Diagnosis Anxiety and depression ([facility])- Primary Screening mammogram for breast cancer BMI 50.0-59.9, adult ([facility]) Lower extremity edema Edema Primary hypertension ([facility] Unspecified essential hypertension Mixed hyperlipidemia ([facility]) Mixed hyperlipidemia Abnormal weight gain Anxiety and depression ([facility])- Primary Family history of premature CAD Family history of ischemic heart disease Primary hypertension ([facility]) Unspecified essential hypertension MARCK (obstructive sleep apnea) Obstructive sleep apnea (adult) (pediatric) Pre-diabetes Other abnormal glucose BMI 50.0-59.9, adult ([facility]) Primary hypertension ([facility])- Primary Unspecified essential hypertension Essential (primary) hypertension ([facility] Unspecified essential hypertension Essential hypertension ([facility]) Unspecified essential hypertension Anxiety disorder, unspecified Anxiety state ([facility]) Anxiety state, unspecified Anxiety and depression ([facility]) Edema, lower extremity Allergic rhinitis, unspecified Allergic rhinitis Allergic rhinitis, cause unspecified Gastro-esophageal reflux disease without esophagitis Insomnia, unspecified MARCK (obstructive sleep apnea) Obstructive sleep apnea (adult) (pediatric) Primary insomnia Persistent disorder of initiating or maintaining sleep Gastroesophageal reflux disease, unspecified whether esophagitis present Lower extremity edema Edema BMI 50.0-59.9, adult ([facility]) Pre-diabetes Other abnormal glucose Anal or rectal pain- Primary BMI 50.0-59.9, adult ([facility]) Chronic rectal pain Pre-diabetes- Primary Other abnormal glucose MARCK (obstructive sleep apnea) Obstructive sleep apnea (adult) (pediatric) Primary hypertension ([facility]) Unspecified essential hypertension Edema, lower extremity BMI 50.0-59.9, adult ([facility]) Anxiety and depression ([facility] Essential (primary) hypertension ([facility]) Unspecified essential hypertension Essential hypertension ([facility]) Unspecified essential hypertension Anxiety disorder, unspecified Anxiety state ([facility]) Anxiety state, unspecified Gastro-esophageal reflux disease without esophagitis Insomnia, unspecified Gastro-esophageal reflux disease without esophagitis documented in this encounter [facility] HealthcareEvaluation note* Diagnosis Anxiety and depression ([facility])- Primary Screening mammogram for breast cancer BMI 50.0-59.9, adult ([facility]) Lower extremity edema Edema Primary hypertension ([facility] Unspecified essential hypertension Mixed hyperlipidemia ([facility]) Mixed hyperlipidemia Abnormal weight gain Anxiety and depression ([facility])- Primary Family history of premature CAD Family history of ischemic heart disease Primary hypertension ([facility]) Unspecified essential hypertension MARCK (obstructive sleep apnea) Obstructive sleep apnea (adult) (pediatric) Pre-diabetes Other abnormal glucose BMI 50.0-59.9, adult ([facility]) Primary hypertension ([facility])- Primary [facility]specified essential hypertension Essential (primary) hypertension ([facility]) Unspecified essential hypertension Essential hypertension ([facility]) Unspecified essential hypertension Anxiety disorder, unspecified Anxiety state ([facility]) Anxiety state, unspecified Anxiety and depression ([facility]) Edema, lower extremity Allergic rhinitis, unspecified Allergic rhinitis Allergic rhinitis, cause unspecified Gastro-esophageal reflux disease without esophagitis Insomnia, unspecified MARCK (obstructive sleep apnea) Obstructive sleep apnea (adult) (pediatric) Primary insomnia Persistent disorder of initiating or maintaining sleep Gastroesophageal reflux disease, unspecified whether esophagitis present Lower extremity edema Edema BMI 50.0-59.9, adult ([facility]) Pre-diabetes Other abnormal glucose Anal or rectal pain- Primary BMI 50.0-59.9, adult ([facility]) Chronic rectal pain Pre-diabetes- Primary Other abnormal glucose MARCK (obstructive sleep apnea) Obstructive sleep apnea (adult) (pediatric) Primary hypertension ([facility]) Unspecified essential hypertension Edema, lower extremity BMI 50.0-59.9, adult ([facility]) Anxiety and depression ([facility] Essential (primary) hypertension ([facility]) Unspecified essential hypertension Essential hypertension ([facility]) Unspecified essential hypertension Anxiety disorder, unspecified Anxiety state ([facility]) Anxiety state, unspecified Gastro-esophageal reflux disease without esophagitis Insomnia, unspecified Primary hypertension ([facility])- Primary Unspecified essential hypertension Secondary pulmonary arterial hypertension ([facility]) Morbid (severe) obesity due to excess calories ([facility]) Body mass index (BMI) 50.0-59.9, adult ([facility]) Primary insomnia Persistent disorder of initiating or maintaining sleep MARCK (obstructive sleep apnea) Obstructive sleep apnea (adult) (pediatric) Gastroesophageal reflux disease, unspecified whether esophagitis present Edema, lower extremity Pre-diabetes Other abnormal glucose Anxiety and depression ([facility]) Metabolic syndrome Dysmetabolic Syndrome X Mixed hyperlipidemia ([facility]) Mixed hyperlipidemia documented in this encounter [facility] HealthcareEvaluation note* Diagnosis Anxiety and depression ([facility])- Primary Screening mammogram for breast cancer BMI 50.0-59.9, adult ([facility]) Lower extremity edema Edema Primary hypertension ([facility] Unspecified essential hypertension Mixed hyperlipidemia ([facility] Mixed hyperlipidemia Abnormal weight gain Anxiety and depression ([facility])- Primary Family history of premature CAD Family history of ischemic heart disease Primary hypertension ([facility]) Unspecified essential hypertension MARCK (obstructive sleep apnea) Obstructive sleep apnea (adult) (pediatric) Pre-diabetes Other abnormal glucose BMI 50.0-59.9, adult ([facility]) Primary hypertension ([facility])- Primary Unspecified essential hypertension Essential (primary) hypertension ([facility]) Unspecified essential hypertension Essential hypertension ([facility]) Unspecified essential hypertension Anxiety disorder, unspecified Anxiety state ([facility]) Anxiety state, unspecified Anxiety and depression ([facility]) Edema, lower extremity Allergic rhinitis, unspecified Allergic rhinitis Allergic rhinitis, cause unspecified Gastro-esophageal reflux disease without esophagitis Insomnia, unspecified MARCK (obstructive sleep apnea) Obstructive sleep apnea (adult) (pediatric) Primary insomnia Persistent disorder of initiating or maintaining sleep Gastroesophageal reflux disease, unspecified whether esophagitis present Lower extremity edema Edema BMI 50.0-59.9, adult ([facility]) Pre-diabetes Other abnormal glucose Anal or rectal pain- Primary BMI 50.0-59.9, adult ([facility]) Chronic rectal pain Pre-diabetes- Primary Other abnormal glucose MARCK (obstructive sleep apnea) Obstructive sleep apnea (adult) (pediatric) Primary hypertension ([facility]) Unspecified essential hypertension Edema, lower extremity BMI 50.0-59.9, adult ([facility]) Anxiety and depression ([facility] Essential (primary) hypertension ([facility]) Unspecified essential hypertension Essential hypertension ([facility]) Unspecified essential hypertension Anxiety disorder, unspecified Anxiety state ([facility]) Anxiety state, unspecified Gastro-esophageal reflux disease without esophagitis Insomnia, unspecified Primary hypertension ([facility])- Primary Unspecified essential hypertension Secondary pulmonary arterial hypertension ([facility]) Morbid (severe) obesity due to excess calories ([facility]) Body mass index (BMI) 50.0-59.9, adult ([facility]) Primary insomnia Persistent disorder of initiating or maintaining sleep MARCK (obstructive sleep apnea) Obstructive sleep apnea (adult) (pediatric) Gastroesophageal reflux disease, unspecified whether esophagitis present Edema, lower extremity Pre-diabetes Other abnormal glucose Anxiety and depression ([facility]) Metabolic syndrome Dysmetabolic Syndrome X Mixed hyperlipidemia ([facility] Mixed hyperlipidemia Well woman exam with routine gynecological exam Routine gynecological examination Breast cancer screening by mammogram documented in this encounter [facility] HealthcareEvaluation note* Diagnosis Anxiety and depression ([facility])- Primary Screening mammogram for breast cancer BMI 50.0-59.9, adult ([facility]) Lower extremity edema Edema Primary hypertension ([facility] Unspecified essential hypertension Mixed hyperlipidemia ([facility]) Mixed hyperlipidemia Abnormal weight gain Anxiety and depression ([facility])- Primary Family history of premature CAD Family history of ischemic heart disease Primary hypertension ([facility]) Unspecified essential hypertension MARCK (obstructive sleep apnea) Obstructive sleep apnea (adult) (pediatric) Pre-diabetes Other abnormal glucose BMI 50.0-59.9, adult ([facility]) Primary hypertension ([facility])- Primary Unspecified essential hypertension Essential (primary) hypertension ([facility] Unspecified essential hypertension Essential hypertension ([facility]) Unspecified essential hypertension Anxiety disorder, unspecified Anxiety state ([facility]) Anxiety state, unspecified Anxiety and depression ([facility]) Edema, lower extremity Allergic rhinitis, unspecified Allergic rhinitis Allergic rhinitis, cause unspecified Gastro-esophageal reflux disease without esophagitis Insomnia, unspecified MARCK (obstructive sleep apnea) Obstructive sleep apnea (adult) (pediatric) Primary insomnia Persistent disorder of initiating or maintaining sleep Gastroesophageal reflux disease, unspecified whether esophagitis present Lower extremity edema Edema BMI 50.0-59.9, adult ([facility]) Pre-diabetes Other abnormal glucose Anal or rectal pain- Primary BMI 50.0-59.9, adult ([facility]) Chronic rectal pain Pre-diabetes- Primary Other abnormal glucose MARCK (obstructive sleep apnea) Obstructive sleep apnea (adult) (pediatric) Primary hypertension ([facility]) Unspecified essential hypertension Edema, lower extremity BMI 50.0-59.9, adult ([facility]) Anxiety and depression ([facility] Essential (primary) hypertension ([facility]) Unspecified essential hypertension Essential hypertension ([facility]) Unspecified essential hypertension Anxiety disorder, unspecified Anxiety state ([facility]) Anxiety state, unspecified Gastro-esophageal reflux disease without esophagitis Insomnia, unspecified Primary hypertension ([facility])- Primary Unspecified essential hypertension Secondary pulmonary arterial hypertension ([facility]) Morbid (severe) obesity due to excess calories ([facility]) Body mass index (BMI) 50.0-59.9, adult ([facility]) Primary insomnia Persistent disorder of initiating or maintaining sleep MARCK (obstructive sleep apnea) Obstructive sleep apnea (adult) (pediatric) Gastroesophageal reflux disease, unspecified whether esophagitis present Edema, lower extremity Pre-diabetes Other abnormal glucose Anxiety and depression ([facility]) Metabolic syndrome Dysmetabolic Syndrome X Mixed hyperlipidemia ([facility]) Mixed hyperlipidemia Breast abscess- Primary Inflammatory disease of breast documented in this encounter [facility] HealthcareEvaluation note* Diagnosis Anxiety and depression ([facility])- Primary Screening mammogram for breast cancer BMI 50.0-59.9, adult ([facility]) Lower extremity edema Edema Primary hypertension ([facility] Unspecified essential hypertension Mixed hyperlipidemia ([facility]) Mixed hyperlipidemia Abnormal weight gain Anxiety and depression ([facility])- Primary Family history of premature CAD Family history of ischemic heart disease Primary hypertension ([facility]) Unspecified essential hypertension MARCK (obstructive sleep apnea) Obstructive sleep apnea (adult) (pediatric) Pre-diabetes Other abnormal glucose BMI 50.0-59.9, adult ([facility]) Primary hypertension ([facility])- Primary [facility]specified essential hypertension Essential (primary) hypertension ([facility] Unspecified essential hypertension Essential hypertension ([facility]) Unspecified essential hypertension Anxiety disorder, unspecified Anxiety state ([facility]) Anxiety state, unspecified Anxiety and depression ([facility]) Edema, lower extremity Allergic rhinitis, unspecified Allergic rhinitis Allergic rhinitis, cause unspecified Gastro-esophageal reflux disease without esophagitis Insomnia, unspecified MARCK (obstructive sleep apnea) Obstructive sleep apnea (adult) (pediatric) Primary insomnia Persistent disorder of initiating or maintaining sleep Gastroesophageal reflux disease, unspecified whether esophagitis present Lower extremity edema Edema BMI 50.0-59.9, adult ([facility]) Pre-diabetes Other abnormal glucose Anal or rectal pain- Primary BMI 50.0-59.9, adult ([facility]) Chronic rectal pain Pre-diabetes- Primary Other abnormal glucose MARCK (obstructive sleep apnea) Obstructive sleep apnea (adult) (pediatric) Primary hypertension ([facility]) Unspecified essential hypertension Edema, lower extremity BMI 50.0-59.9, adult ([facility]) Anxiety and depression ([facility] Essential (primary) hypertension ([facility]) Unspecified essential hypertension Essential hypertension ([facility]) Unspecified essential hypertension Anxiety disorder, unspecified Anxiety state ([facility]) Anxiety state, unspecified Gastro-esophageal reflux disease without esophagitis Insomnia, unspecified Primary hypertension ([facility])- Primary Unspecified essential hypertension Secondary pulmonary arterial hypertension ([facility]) Morbid (severe) obesity due to excess calories ([facility]) Body mass index (BMI) 50.0-59.9, adult ([facility]) Primary insomnia Persistent disorder of initiating or maintaining sleep MARCK (obstructive sleep apnea) Obstructive sleep apnea (adult) (pediatric) Gastroesophageal reflux disease, unspecified whether esophagitis present Edema, lower extremity Pre-diabetes Other abnormal glucose Anxiety and depression ([facility]) Metabolic syndrome Dysmetabolic Syndrome X Mixed hyperlipidemia ([facility]) Mixed hyperlipidemia Breast abscess- Primary Inflammatory disease of breast Mucocele of mouth- Primary Other and unspecified diseases of the oral soft tissues documented in this encounter [facility] HealthcareEvaluation note* Diagnosis Anxiety and depression- Primary Screening mammogram for breast cancer BMI 50.0-59.9, adult ([facility]) Lower extremity edema Edema Primary hypertension Unspecified essential hypertension Mixed hyperlipidemia Mixed hyperlipidemia Abnormal weight gain Anxiety and depression- Primary Family history of premature CAD Family history of ischemic heart disease Primary hypertension Unspecified essential hypertension MARCK (obstructive sleep apnea) Obstructive sleep apnea (adult) (pediatric) Pre-diabetes Other abnormal glucose BMI 50.0-59.9, adult ([facility]) Primary hypertension- Primary Unspecified essential hypertension Essential [...] Lower extremity edema Edema BMI 50.0-59.9, adult ([facility]) Pre-diabetes Other abnormal glucose Anal or rectal pain- Primary BMI 50.0-59.9, adult ([facility]) Chronic rectal pain Pre-diabetes- Primary Other abnormal glucose MARCK (obstructive sleep apnea) Obstructive sleep apnea (adult) (pediatric) Primary hypertension Unspecified essential hypertension Edema, lower extremity BMI 50.0-59.9, adult ([facility]) Anxiety and depression Essential (primary) hypertension Unspecified essential hypertension Essential hypertension Unspecified essential hypertension Anxiety disorder, unspecified Anxiety state Anxiety state, unspecified Gastro-esophageal reflux disease without esophagitis Insomnia, unspecified Primary hypertension- Primary Unspecified essential hypertension Secondary pulmonary arterial hypertension (HCC) Morbid (severe) obesity due to excess calories ([facility]) Body mass index (BMI) 50.0-59.9, adult ([facility]) Primary insomnia Persistent disorder of initiating or [...] soft tissues documented in this encounter [facility]* Diagnosis Anxiety and depression- Primary Screening mammogram for breast cancer BMI 50.0-59.9, adult ([facility]) Lower extremity edema Edema Primary hypertension Unspecified essential hypertension Mixed hyperlipidemia Mixed hyperlipidemia Abnormal weight gain Anxiety and depression- Primary Family history of premature CAD Family history of ischemic heart disease Primary hypertension Unspecified essential hypertension MARCK (obstructive sleep apnea) Obstructive sleep apnea (adult) (pediatric) Pre-diabetes Other abnormal glucose BMI 50.0-59.9, adult ([facility]) Primary hypertension- Primary Unspecified essential hypertension Essential [...] Lower extremity edema Edema BMI 50.0-59.9, adult ([facility]) Pre-diabetes Other abnormal glucose Anal or rectal pain- Primary BMI 50.0-59.9, adult ([facility]) Chronic rectal pain Pre-diabetes- Primary Other abnormal glucose MARCK (obstructive sleep apnea) Obstructive sleep apnea (adult) (pediatric) Primary hypertension Unspecified essential hypertension Edema, lower extremity BMI 50.0-59.9, adult ([facility]) Anxiety and depression Essential (primary) hypertension Unspecified essential hypertension Essential hypertension Unspecified essential hypertension Anxiety disorder, unspecified Anxiety state Anxiety state, unspecified Gastro-esophageal reflux disease without esophagitis Insomnia, unspecified Primary hypertension- Primary Unspecified essential hypertension Secondary pulmonary arterial hypertension (HCC) Morbid (severe) obesity due to excess calories ([facility]) Body mass index (BMI) 50.0-59.9, adult ([facility]) Primary insomnia Persistent disorder of initiating or [...] unspecified diseases of the oral soft tissues Mixed hyperlipidemia- Primary Mixed hyperlipidemia documented in this encounter [facility] HealthcareEvaluation note* Diagnosis Anxiety and depression- Primary Screening mammogram for breast cancer BMI 50.0-59.9, adult ([facility]) Lower extremity edema Edema Primary hypertension Unspecified essential hypertension Mixed hyperlipidemia Mixed hyperlipidemia Abnormal weight gain Anxiety and depression- Primary Family history of premature CAD Family history of ischemic heart disease Primary hypertension Unspecified essential hypertension MARCK (obstructive sleep apnea) Obstructive sleep apnea (adult) (pediatric) Pre-diabetes Other abnormal glucose BMI 50.0-59.9, adult ([facility]) Primary hypertension- Primary Unspecified essential hypertension Essential [...] Lower extremity edema Edema BMI 50.0-59.9, adult ([facility]) Pre-diabetes Other abnormal glucose Pre-diabetes- Primary Other abnormal glucose MARCK (obstructive sleep apnea) Obstructive sleep apnea (adult) (pediatric) Primary hypertension Unspecified essential hypertension Edema, lower extremity BMI 50.0-59.9, adult ([facility]) Anxiety and depression Essential (primary) hypertension Unspecified essential hypertension Essential hypertension Unspecified essential hypertension Anxiety disorder, unspecified Anxiety state Anxiety state, unspecified Gastro-esophageal reflux disease without esophagitis Insomnia, unspecified Primary hypertension- Primary Unspecified essential hypertension Secondary pulmonary arterial hypertension (HCC) Morbid (severe) obesity due to excess calories ([facility]) Body mass index (BMI) 50.0-59.9, adult ([facility]) Primary insomnia Persistent disorder of initiating or maintaining sleep MARCK (obstructive sleep apnea) Obstructive sleep apnea (adult) (pediatric) Gastroesophageal reflux disease, unspecified whether esophagitis present Edema, lower extremity Pre-diabetes Other abnormal glucose Anxiety and depression Metabolic syndrome Dysmetabolic Syndrome X Mixed hyperlipidemia Mixed hyperlipidemia Mucocele of mouth- Primary Other and unspecified diseases of the oral soft tissues Anxiety and depression- Primary MARCK (obstructive sleep apnea) Obstructive sleep apnea (adult) (pediatric) Primary hypertension Unspecified essential hypertension Gastroesophageal reflux disease, unspecified whether esophagitis present Edema, lower extremity Pre-diabetes Other abnormal glucose Morbid (severe) obesity due to excess calories ([facility]) Mixed hyperlipidemia Mixed hyperlipidemia Primary insomnia Persistent disorder of initiating or maintaining sleep documented in this encounter [facility]Evaluation noteNo assessment information available[facility] Work Phone: Reason for referral (narrative)* Consultation (Routine) - Pending Review Specialty Diagnoses / Procedures Referred By Contac t Referred To Contact General Surgery Diagnoses Anal or rectal pain Procedures MO OFFICE/OUTPATIENT NEW HIGH MDM 60 MINUTES Aida Chaves NP [address] [place] [address] Jonatan Smtih, [address] [facility] [address] [place] [address] Referral ID Status Reason Start Date Expiration Date Visits Requested Visits Authorized [id number] Pending Review Specialty Services Required 02/21/2024 08/19/2024 1 1 * Consultation (Routine) - Pending Review Specialty Diagnoses / Procedures Referred By Contac t Referred To Contact General Surgery Diagnoses Anal or rectal pain Procedures MO OFFICE/OUTPATIENT NEW HIGH MDM 60 MINUTES Aida Chaves NP [address] [place] [address] Jonatan Smith, [address] [facility] [address] [place] [address] Referral ID Status Reason Start Date Expiration Date Visits Requested Visits Authorized [id number] Pending Review Specialty Services Required 02/21/2024 08/19/2024 1 1 [facility] HealthcareReason for referral (narrative)No reason for referral information available[facility] Work Phone: Summary Purpose Family History No Family History Records FoundNo Family History Records FoundNo Family History Records Found Advance Directives No Advanced Directives Records FoundNo Advanced Directives Records FoundNo Advanced Directives Records Found Chief Complaint and Reason for Visit Chief Complaint Admit Date fpg pre emp pillars February 23, 2025 12 :39pm Additional Source Comments INFORMATION SOURCE (unrecogn ized section and content) DATE CREATED AUTHOR 12/11/2022 [facility] DATE CREATED AUTHOR AUTHOR'S ORGANIZ ATION 02/13/2025 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 Relationship Specialty Start Date End Date Jef Wooten MD [address] [place] [address] PCP - General Family Medicine 07/28/23 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 Relationship Specialty Start Date End Date Jef Wooten MD [address] [place] [phone] PCP - General Family Medicine 07/28/23 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 Relationship Specialty Start Date End Date Jef Wooten MD [address] [place] [address] PCP - General Family Medicine 07/28/23 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 Relationship Specialty Start Date End Date Jef Wooten MD [address] [place] [address] PCP - General Family Medicine 07/28/23 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 Relationship Specialty Start Date End Date Jef Wooten MD [address] [place] [address] PCP - General Family Medicine 07/28/23 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 Relationship Specialty Start Date End Date Jef Wooten MD [address] [place] [address] PCP - General Family Medicine 07/28/23 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 Relationship Specialty Start Date End Date Jef Wooten MD [address] [place] [address] PCP - General Family Medicine 07/28/23 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 Relationship Specialty Start Date End Date Jef Wooten MD [address] [place] [address] PCP - General Family Medicine 07/28/23 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 Relationship Specialty Start Date End Date Jef Wooten MD [address] [place] [address] PCP - General Family Medicine 07/28/23 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 Relationship Specialty Start Date End Date Jef Wooten MD [address] [place] [address] PCP - General Family Medicine 07/28/23 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 Relationship Specialty Start Date End Date Jef Wooten MD [address] [place] [address] PCP - General Family Medicine 07/28/23 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 Relationship Specialty Start Date End Date Jef Wooten MD [address] [place] [address] PCP - General Family Medicine 07/28/23 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 Relationship Specialty Start Date End Date Jef Wooten MD [address] [place] [address] PCP - General Family Medicine 07/28/23 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 Relationship Specialty Start Date End Date Jef Wooten MD [address] [place] [address] PCP - General Family Medicine 07/28/23 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 Relationship Specialty Start Date End Date Jef Wooten MD [address] [place] [address] PCP - General Family Medicine 07/28/23 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 Relationship Specialty Start Date End Date Jef Wooten MD [address] [place] [address] PCP - General Family Medicine 07/28/23 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 Relationship Specialty Start Date End Date Jef Wooten MD [address] [place] [address] PCP - General Family Medicine 07/28/23 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 Relationship Specialty Start Date End Date Jef Wooten MD [address] [place] [address] PCP - General Family Medicine 07/28/23 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 Relationship Specialty Start Date End Date Jef Wooten MD [address] [place] [address] PCP - General Family Medicine 07/28/23 Team Status: Active Member Role Status Dates PHYSICIAN NO FAMILY Primary Care Provider Active Team Status: Inactive Member Role Status Dates PHYSICIAN NO FAMILY Primary Care Provider Active Start: February 23, 2025 End: February 23, 2025 Meir Newell Jr, DO Attending Provider Active S tart: February 23, 2025 End: February 23, 2025 Reason for Visit (unrecogniz ed section and [...] Reason Onset Date Comments Med Refill 11/30/2024 Reason Comments Diabetes Goals (unrecognized section and content) Goals may be documented in a n alternate section FOR RECORDS PERTAINING TO PATIENTS WHO ARE [...] BE BASED ON THE PRIMARY CLINICAL RECORDS. [employer] provides no warranty or guarantee of the accuracy or completeness of information in this document.
[2025-04-09 11:32] LABS: Hematocrit 33.1 % (36.0-48.0); Hemoglobin 11.0 g/dL (12.0-16.0); Immature Granulocytes Abs Auto 0.04 10^3/uL (0.00-0.03); Immature Granulocytes Pct Auto 0.5 % (0.0-0.5); Lymphocytes Absolute Auto 2.4 10^3/uL (1.2-3.8); Mean Corpuscular HGB Conc 33.2 g/dL (29.9-35.2); Mean Corpuscular Hemoglobin 29.6 pg (26.7-34.0); Mean Corpuscular Volume 89.2 fL (81.0-99.0); Platelet Count 258 10^3/uL (150-450); Red Blood Count 3.71 10^6/uL (4.20-5.40); White Blood Count 7.6 10^3/uL (4.0-11.0)
[2025-04-09 12:15] LABS: Anion Gap 11.2; Blood Urea Nitrogen 14.0 mg/dL (7.0-18.0); Calcium 8.7 mg/dL (8.5-10.1); Carbon Dioxide 30.5 mmol/L (21.0-32.0); Chloride 102 mmol/L (98-107); Creatine Kinase 56 U/L (26-192); Estimated GFR (African America >60 (>=60 mL/min/1.73m^2); Estimated GFR (Non-African Ame >60 (>=60 mL/min/1.73m^2); Glucose 106 mg/dL (74-106); NT Pro B Type Natriuretic Pept 413.0 pg/mL (<=450.0); Potassium 3.7 mmol/L (3.5-5.1); Sodium 140 mmol/L (136-145)
== END 2025-04-09 11:02 | disposition home or self-care (01) ==
LOC: CR 11:11 → CARD 11:14
PROVIDERS: PCP Nurse Practitioner; Visit Provider Nurse Practitioner
DX: R07.9 Chest pain, unspecified (principal); R73.03 Prediabetes; Z82.49 Family history of ischemic heart disease and other diseases of the circulatory system; I10 Essential (primary) hypertension; R60.0 Localized edema; I27.21 Secondary pulmonary arterial hypertension
CPT/HCPCS: 36415; 80048; 82550; 82553; 83874; 83880; 84484; 85025; 93005

== ENCOUNTER 2025-04-13 13:44 | Outpatient (OUT) | payer OTHER, SELFPAY ==
--- OUTSIDE RECORDS SUMMARY | 2025-04-13 13:49 | XMS_ITS | CCD ---
Author Organization [facility] Care Team Providers Care Wheel And Pinion Inspector Name Role Phone AICHHOLZ, MARKETING REPRESENTATIVE AIDA Primary Care Unavailable ARIA, NISH Consulting Unavailable ARIA, NISH Attending Unavailable ARIA, NISH Admitting Unavailable DEMARIO ., LU Attending Unavailable ZIEBER, DR TIM Dunaway Consulting Unavailable AICHHOLZ, MARKETING REPRESENTATIVE AIDA Primary Care Unavailable DEMARIO ., LU Admitting Unavailable DEMARIO ., LU Consulting Unavailable AICHHOLZ, MARKETING REPRESENTATIVE AIDA Attending Unavailable AICHHOLZ, MARKETING REPRESENTATIVE AIDA Admitting Unavailable AICHHOLZ, MARKETING REPRESENTATIVE AIDA Primary Care Unavailable AICHHOLZ, MARKETING REPRESENTATIVE AIDA Consulting Unavailable AICHHOLZ, MARKETING REPRESENTATIVE AIDA Primary Care Unavailable ACOSTA ., DR OLMEDO Consulting Unavailable ACOSTA ., DR OLMEDO Attending Unavailable ACOSTA ., DR OLMEDO Admitting Unavailable AICHHOLZ, MARKETING REPRESENTATIVE AIDA Primary Care Unavailable ACOSTA ., DR OLMEDO Admitting Unavailable ACOSTA ., DR OLMEDO Consulting Unavailable ACOSTA ., DR OLMEDO Attending Unavailable AICHHOLZ, MARKETING REPRESENTATIVE AIDA Primary Care Unavailable ACOSTA ., DR OLMEDO Admitting Unavailable ACOSTA ., DR OLMEDO Consulting Unavailable ACOSTA ., DR OLMEDO Attending Unavailable AICHHOLZ, MARKETING REPRESENTATIVE AIDA Consulting Unavailable AICHHOLZ, MARKETING REPRESENTATIVE AIDA Attending Unavailable AICHHOLZ, MARKETING REPRESENTATIVE AIDA Admitting Unavailable AICHHOLZ, MARKETING REPRESENTATIVE AIDA Primary Care Unavailable ZIEBER, DR TIM Dunaway Consulting Unavailable AICHHOLZ, MARKETING REPRESENTATIVE AIDA Consulting Unavailable AICHHOLZ, MARKETING REPRESENTATIVE AIDA Attending Unavailable AICHHOLZ, MARKETING REPRESENTATIVE AIDA Admitting Unavailable AICHHOLZ, MARKETING REPRESENTATIVE AIDA Primary Care Unavailable AICHHOLZ, MARKETING REPRESENTATIVE AIDA Attending Unavailable AICHHOLZ, MARKETING REPRESENTATIVE AIDA Admitting Unavailable AICHHOLZ, MARKETING REPRESENTATIVE AIDA Primary Care Unavailable AICHHOLZ, MARKETING REPRESENTATIVE AIDA Consulting Unavailable AICHHOLZ, MARKETING REPRESENTATIVE AIDA Attending Unavailable AICHHOLZ, MARKETING REPRESENTATIVE AIDA Admitting Unavailable AICHHOLZ, MARKETING REPRESENTATIVE AIDA Primary Care Unavailable AICHHOLZ, MARKETING REPRESENTATIVE AIDA Consulting Unavailable AICHHOLZ, MARKETING REPRESENTATIVE AIDA Primary Care Unavailable ACOSTA ., DR OLMEDO Admitting Unavailable ACOSTA ., DR OLMEDO Consulting Unavailable ACOSTA ., DR OLMEDO Attending Unavailable SANTINO CAZARES Consulting Unavailable KWANDESHAUN Domínguez II Consulting Unavailable NICOLE ESCOTO Consulting Unavailable Jef Wooten MD Primary Care Provider AICHHOLZ, AIDA Attending Unavailable SANDIE PRIETO Attending Unavailable PHIL SHANE Attending Unavailable AICHHOLZ, AIDA Attending Unavailable AICHHOLZ, AIDA Attending Unavailable JONATAN SMITH Attending Unavailable AICHHOLZ, AIDA Attending Unavailable NO FAMILY, PHYSICIAN Primary Care Provider Unava ilable Meir Newell DO Attending Provider [phone] Meir Newell Jr Attending Unavailable Meir Newell Jr Admitting Unavailable NO FAMILY, PHYSICIAN Primary Care Unavailable Aichholz SUPERVISOR S[employer]F [employer]ICE STORE-C, Aida Lenora Primary Care Provider [phone] Aichholcarolyn SUPERVISOR [employer] [facility] [facility], Aida Cooley Attending Provider Allergies Allergy Classification Reported Allergen(s) Allergy Type Date of Onset Reaction(s) Facility (1 source) Bee pollen Drug allergy (disorder) [facility] (1 source) Penicillins Drug allergy (disorder) 03-31-20 15 [facility] (1 source) Sulfamethoxazole / Trimethoprim Drug Allergy 03-31-20 15 [facility] (20 sources) Honey bee venom Allergy to substance 01-14-20 [facility] (20 sources) metroNIDAZOLE Drug Allergy 07-28-19 24 Other, GI intolerance [facility] Comment on above: GI intolerance (20 sources) Penicillin G Drug Allergy 01-14-20 23 Unknown Reaction [facility] Healthcare (20 sources) Sulfonamides (Antibiotic) Drug Allergy 01-14-20 23 [facility] (1 source) metroNIDAZOLE Drug Allergy 03-13-20 25 [facility] (1 source) Penicillin Drug Allergy 03-13-20 25 [facility] (2 sources) Sulfonamides (Antibiotic) Drug allergy (disorder) 03-13-20 Unknown Reaction [facility] (2 sources) venom-honey bee Drug allergy (disorder) 03-13-20 Unknown Reaction [facility] Medications Current Medications Medication Drug Class(es) Dates Sig (Normalized) Sig (Original) amLODIPine 10 mg oral tablet (20 sources) Dihydropyridine Calcium Channel Shanna Start: 12-29-2023 End: 05-13-2025 take 1 tablet by mouth once daily Amlodipine 10 mg tablet Active 10 MG PO Daily March 13, 2025 12:00am Complies with drug therapy atorvastatin 10 mg oral tablet (5 sources) HMG-CoA Reductase Inhibitor Start: 01-22-2025 End: 04-22-2025 take 1 tablet by mouth once daily in the evening Atorvastatin 10 mg tablet Active 10 MG PO Every evening March 13, 2025 12:00am Complies with drug therapy azithromycin 250 mg oral tablet (12 sources) [...] release oral tablet (20 sources) Aminoketone Start: 03-13-2025 take 1 tablet by mouth once daily in the morning Bupropion Hcl 150 mg tablet extended release 24 hr Active 150 MG PO Every morning March 13, 2025 12:00am Complies with drug therapy Start: 12-29-2023 End: 11-28-2024 take 1 tablet by mouth once daily buPROPion XL (Wellbutrin XL) 150 MG 24 hr tablet Indications: Anxiety and depression Take 1 tablet (150 mg) by mouth Daily 90 tablet 1 08/30/2024 Active busPIRone hydrochloride 10 mg oral tablet (20 sources) Start: 02-12-2025 End: 03-14-2025 take 2 tablets by mouth twice daily Buspirone 10 mg tablet Active 20 MG PO Twice daily March 13, 2025 12:00am Complies with drug therapy Start: 12-29-2023 End: 02-12-2025 take 1 tablet [...] 1 capsule by mouth once daily Cariprazine (Vraylar) 1.5 mg capsule Active 1.5 MG PO Daily March 13, 2025 12:00am Complies with drug therapy carvedilol 3.125 mg oral tablet (20 sources) alpha-Adrenergic Shanna, beta-Adrenergic Shanna Start: 12-29-2023 End: 05-13-2025 take 1 tablet by mouth twice daily at mealtime Carvedilol 3.125 mg tablet Active 3.125 MG PO Twice daily March 13, 2025 12:00am must administer with a meal/food Complies with drug therapy dibucaine 0.01 mg/mg rectal ointment (20 sources) [...] take 1 tablet by mouth once daily Escitalopram Oxalate 20 mg tablet Active 20 MG PO Daily March 13, 2025 12:00am Complies with drug therapy furosemide 20 mg oral tablet (20 sources) Loop Diuretic Start: 03-13-2025 take 1 tablet by mouth once daily Furosemide (Lasix) 20 mg tablet Active 20 MG PO Daily March 13, 2025 12:00am Complies with drug therapy Start: 12-29-2023 End: 11-28-2024 take 1 tablet by mouth once daily furosemide (Lasix) 20 MG tablet Indications: Edema, lower extremity Take 1 tablet (20 mg) by mouth Daily 90 tablet 1 08/30/2024 Active hydroCHLOROthiazide 12.5 mg / lisinopril 20 mg oral tablet (20 sources) Thiazide Diuretic, Angiotensin Converting Enzyme Inhibitor Start: 03-13-2025 take 1 tablet by mouth twice daily Lisinopril-Hydrochlorothiazide 20-12.5 mg tablet Active 1 TAB PO Twice daily 180 March 13, 2025 12:00am Complies with drug therapy Start: 12-29-2023 End: 05-13-2025 take 1 tablet by mouth in the morning lisinopril-hydroCHLOROthiazide 20-12.5 M G tablet Indications: Primary hypertension Take 1 tablet [...] take 1 tablet by mouth once daily Pantoprazole 40 mg tablet,delayed release (DR/EC) Active 40 MG PO Daily March 13, 2025 12:00am Complies with drug therapy Start: 12-29-2023 End: 07-02-2024 take 1 tablet by mouth in the morning pantoprazole (ProtoNix) 40 MG EC tablet Indications: Gastro-esophageal reflux disease without esophagitis Take 1 tablet (40 mg) by mouth in the morning and 1 tablet (40 mg) before bedtime. 180 tablet 1 04/03/2024 Active polyethylene glycol 3350 88111 mg powder for oral solution (2 sources) [...] tablet (20 sources) Serotonin Reuptake Inhibitor Start: 03-13-2025 take 1 tablet by mouth once daily at bedtime Trazodone 150 mg tablet Active 150 MG PO Daily at bedtime March 13, 2025 12:00am Complies with drug therapy Start: 12-29-2023 End: 05-13-2025 take 2 tablets by mouth at bedtime traZODone (Desyrel) 150 MG tablet Indications: Primary insomnia Take 2 tablets (300 mg) by mouth at bedtime 180 tablet 1 02/12/2025 05/13/2025 Active ubrogepant 100 mg oral tablet (20 sources) Start: 03-13-2025 take 1 tablet by heidi th every twenty-four hours as needed Ubrogepant (Ubrelvy) 100 mg tablet Active 100 MG PO .daily prn as needed for migraine headache March 13, 2025 12:00am may take at onset of migraine AVALOS, repeat in 2 hours if needed. max dose 2 pills 24 hours Complies with drug therapy Start: 06-17-2023 Ubrogepant (Ub relvy) 100 MG [...] every six hours for pain HYDROcodone-acetam inophen (Ewing) 5-325 MG tablet Indications: Postoperative pain Take [...] tablet 1 12/29/2023 04/03/2024 Discontinued (Therapy completed) Semaglutide (1 source) Start: 03-13-2025 End: 04-09-2025 inject 1 mg by subcutaneous injection every week Semaglutide (Ozempic) 1 mg/dose (4 mg/3 mL) pen injector Discontinued 1 MG SUBCUT every week March 13, 2025 12:00am April 09, 2025 10:26am Problems Active Problems Problem Classification Problem Date Documented Da te Episodic/Chronic Abdominal pain (5 sources) Pelvic and perineal pain; Translations: [Unspecified abdominal pain] Onset: 2 Episodic Anxiety disorders (20 sources) Mixed anxiety and depressive disorder; Translations: [Anxiety disorder, unspecified] Onset: 3 06-29-2023 Chronic Diabetes mellitus without complication (20 sources) Prediabetes; Translations: [Prediabetes] Onset: 4 Resolved: 4 11-04-2023 Episodic Diseases of mouth; excluding dental (9 sources) Mucocele of mouth; Translations: [Other lesions of oral mucosa] Onset: 5 11-30-2024 Episodic Disorders of lipid metabolism (20 sources) Hyperlipidemia; Translations: [Hyperlipidemia, unspecified] Onset: 4 08-02-2023 Chronic Esophageal disorders (20 sources) Gastroesophageal reflux disease; Translations: [Gastro-esophageal reflux disease without esophagitis] Onset: 4 08-23-2023 Chronic Essential hypertension (20 sources) Essential (primary) hypertension; Translations: [Hypertensive disorder] Onset: 3 Chronic Headache; including migraine (20 sources) Migraine without aura, not refractory ; Translations: [Chronic migraine without aura, not intractable, without status migrainosus] Onset: 3 06-17-2023 Chronic Heart valve disorders (20 sources) Rheumatic tricuspid insufficiency; Translations: [Tricuspid valve regurgitation] Onset: 3 08-23-2023 Chronic Inflammatory diseases of female pelvic organs (1 source) Inflammatory disease of cervix uteri; Translations: [INFLAMMATORY DISEASE CERVIX UTERI] Onset: 3 Episodic Menstrual disorders (6 sources) Excessive and frequent menstruation with regular cycle; Translations: [Dysmenorrhea, unspecified] Onset: 3 Chronic Miscellaneous mental health disorders (4 sources) Primary insomnia; Translations: [Primary insomnia] 08-30-2024 Chronic Mood disorders (1 source) Recurrent major depressive episodes, mild ; Translations: [Major depressive disorder, recurrent, mild] 03-13-2025 Chronic Nonspecific chest pain (3 sources) Chest pain, unspecified; Translations: [Chest pain] Onset: 3 04-09-2025 Episodic Other acquired deformities (20 sources) Equinus contracture of the ankle; Translations: [Contracture, left ankle] Onset: 3 01-13-2023 Chronic Other female genital disorders (1 source) Unspecified dyspareunia; Translations: [UNSPECIFIED DYSPAREUNIA] Onset: 3 Chronic Other female genital disorders (1 source) Dysplasia of cervix uteri, unspecified; Translations: [DYSPLASIA CERVIX UTERI UNSPECIFIED] Onset: 3 Episodic Other female genital disorders (1 source) Other specified noninflammatory disorders of vagina; Translations: [OTH SPEC NONINFLAMMATORY D/O VAGINA] Onset: 3 Episodic Other gastrointestinal disorders (20 sources) Constipation; Translations: [Constipation, unspecified] Onset: 3 01-13-2023 Episodic Other nutritional; endocrine; and metabolic disorders (1 source) Morbid (severe) obesity due to excess calories; Translations: [MORBID SEVERE OBES D/T EXCESS MISSAEL] Onset: 2 Chronic Other nutritional; endocrine; and metabolic disorders (1 source) Body mass index (BMI) 40.0-44.9, adult; Translations: [BODY MASS INDEX BMI 40.0-44.9 ADULT] Onset: 2 Chronic Other nutritional; endocrine; and metabolic disorders (20 sources) Body mass index 40+ - severely obese; Translations: [Body mass index (BMI) 50.0-59.9, adult] Onset: 4 08-02-2023 Chronic Other nutritional; endocrine; and metabolic disorders (20 sources) Metabolic syndrome X; Translations: [Metabolic syndrome] Onset: 4 03-13-2024 Chronic Other nutritional; endocrine; and metabolic disorders (16 sources) Obesity caused by energy imbalance; Translations: [Morbid (severe) obesity due to excess calories] Onset: 5 08-30-2024 Chronic Other nutritional; endocrine; and metabolic disorders (1 source) Morbid obesity; Translations: [Morbid (severe) obesity due to excess calories] 03-13-2025 Chronic Other skin disorders (1 source) Changes in skin texture; Translations: [CHANGES IN SKIN TEXTURE] Onset: 3 Episodic Prolapse of female genital organs (1 source) Female genital prolapse, unspecified; Translations: [FEMALE GENITAL PROLAPSE UNSPECIFIED] Onset: 3 Chronic Pulmonary heart disease (20 sources) Pulmonary arterial hypertension; Translations: [Secondary pulmonary arterial hypertension] Onset: 4 08-23-2023 Chronic Residual codes; unclassified (4 sources) Obstructive sleep apnea (adult) (pediatric); Translations: [OBSTRUCTIVE SLEEP APNEA] Onset: 3 Chronic Residual codes; unclassified (20 sources) Obstructive sleep apnea syndrome; Translations: [Obstructive sleep apnea (adult) (pediatric)] Onset: 4 08-23-2023 Chronic Residual codes; unclassified (1 source) Localized edema; Translations: [LOCALIZED EDEMA] Onset: 3 Episodic Residual codes; unclassified (20 sources) Edema of lower extremity; Translations: [Localized edema] Onset: 3 02-21-2024 Episodic Residual codes; unclassified (20 sources) Insomnia; Translations: [Insomnia, unspecified] Onset: 4 08-23-2023 Episodic Residual codes; unclassified (20 sources) FH: premature coronary heart disease; Translations: [Family history of ischemic heart disease and other diseases of the circulatory system] Onset: 4 11-04-2023 Episodic Residual codes; unclassified (2 sources) Bilateral lower limb edema; Translations: [Localized edema] 03-13-2025 Episodic Past or Other Problems Problem Classification [...] 11-02-2024 Episodic Other aftercare (1 source) Other supervisor dyer (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) drug therapy; Translations: [OTH RECONCILIATION ANALYST CURRENT DRUG THERAPY] Onset: 05-04-2022 Episodic Other female genital disorders (5 sources) Other specified noninflammatory disorders of cervix uteri; Translations: [OTH SPEC NONINFLAMM D/O CERV UTERI] Onset: 05-13-2022 Episodic Other gastrointestinal disorders (1 source) Diarrhea, unspecified; Translations: [DIARRHEA UNSPECIFIED] Onset: 05-04-2022 Episodic Other gastrointestinal disorders (20 sources) Diarrhea; [...] MDRD (S/P/Bld) [Vol rate/Area] mL/min/{1.73_m2} Normal [facility] Comment on above: Performed By: #### E MP BMP, EBS LIPID #### [facility] [address] [place] [address] [place] Calcium [Mass/volume] in Ser um or PlasmaOrdered By: Meir Newell on 02-23-2025 Calcium [Mass/Vol] 9.0 mg/dL 8.6-10.3 [facility] Comment on above: Performed By: #### E MP BMP, EBS LIPID #### [facility] [address] [place] [address] [place] Carbon dioxide, total [Moles /volume] in Serum or PlasmaOrdered By: Meir Newell on 02-23-2025 CO2 [Moles/Vol] 29.3 mmol/L 21.0-31.0 [facility] Comment on above: Performed By: #### E MP BMP, EBS LIPID #### [facility] [address] [place] [address] [place] Chloride [Moles/volume] in S stacey or PlasmaOrdered By: Meir Newell on 02-23-2025 Chloride [Moles/Vol] 101 mmol/L 98-107 [facility] Comment on above: Performed By: #### E MP BMP, EBS LIPID #### [facility] [address] [place] [address] [place] Cholesterol [Mass/volume] in Serum or PlasmaOrdered By: Meir Newell on 02-23-2025 Cholesterol [Mass/Vol] 169 mg/dL 140-200 [facility] Comment on above: Chol less than 200 m g/dl low riskChol 201-239 mg/dl borderline riskChol 240 mg/dl and greater high risk Result Comment: Chol less than 200 mg/dl low risk Chol 201-239 mg/dl borderline risk Chol 240 mg/dl and greater high risk Performed By: #### E MP BMP, EBS LIPID #### [facility] [address] [place] [id number] [place] Cholesterol in HDL [Mass/vol ume] in Serum or PlasmaOrdered By: Meir Newell on 02-23-2025 Cholesterol in HDL [Mass/Vol] 58 mg/dL - [facility] Comment on above: HDL CHOL ATP-III CLA SSIFICATION Cardiovascular RiskHDL > or equal to 60 mg/dL LOWHDL < 40 mg/dL HIGH Result Comment: HDL CHOL ATP-III CLASSIFICATION Cardiovascular Risk HDL > or equal to 60 mg/dL LOW HDL < 40 mg/dL HIGH Performed By: #### E MP BMP, EBS LIPID #### [facility] [address] [place] [id number] [place] Cholesterol in LDL Calc [Mas s/Vol]Ordered By: Meir Newell on 02-23-2025 Cholesterol in LDL [Mass/Vol] 96 mg/dL 0-100 [facility] Comment on above: LDL ATP III CLASSIFI CATIONLDL less than 100 mg/dL OptimalLDL 100-129 mg/dL Near or above optimalLDL 130-159 mg/dL Borderline highLDL 160-189 mg/dL HighLDL greater than 189 mg/dL Very high Cholesterol in VLDL Calc [Ma ss/Vol]Ordered By: Meir Newell on 02-23-2025 Cholesterol in VLDL [Mass/Vol] 15 mg/dL [facility] Creatinine [Mass/volume] in Serum or PlasmaOrdered By: Meir Newell on 02-23-2025 Creatinine [Mass/Vol] 0.82 mg/dL 0.60-1.20 [facility] Comment on above: Performed By: #### E MP BMP, EBS LIPID #### [facility] [address] [place] [id number] [place] Glomerular filtration rate [ Volume Rate/Area] in Serum, Plasma or Blood by CreatinineOrdered By: Meir Newell on 02-23-2025 Glomerular filtration rate [Volume Rate/Area] in Serum, Plasma or Blood by Creatinine > 60.0 mL/Min [facility] Glucose [Mass/volume] in Ser um or PlasmaOrdered By: Meir Newell on 02-23-2025 Glucose [Mass/Vol] 83 mg/dL 70-100 [facility] Comment on above: Performed By: #### E MP BMP, EBS LIPID #### [facility] [address] Lipid Profileon 02-23-2025 LDL Cholesterol,Calculated 96 mg/dL Normal 0-100 [facility] Comment on above: Result Comment: LDL ATP III CLASSIFICATION LDL less than 100 mg/dL Optimal LDL 100-129 mg/dL Near or above optimal LDL 130-159 mg/dL Borderline high LDL 160-189 mg/dL High LDL greater than 189 mg/dL Very high Performed By: #### E MP BMP, EBS LIPID #### [facility] [address] Triglyceride w/Reflex 76 mg/dL Normal 0-149 [facility] Comment on above: Result Comment: TRIG ATP III CLASSIFICATION TRIG less than 150 mg/dL Normal TRIG 150-199 mg/dL Borderline high TRIG 200-500 mg/dL High TRIG greater than 500 mg/dL Very high Standard traceable to the Center for Disease Conrtrol and Prevention (CDC) test method. Performed By: #### E MP BMP, EBS LIPID #### [facility] [address] VLDL CHOLESTEROL 15 mg/dL Normal [facility] Comment on above: Performed By: #### E MP BMP, EBS LIPID #### [facility] [address] No Panel InformationOrdered By: Meir Newell on 02-23-2025 Pharmacy Creatinine Clearance (Chem N/A [facility] Potassium [Moles/volume] in Serum or PlasmaOrdered By: Meir Newell on 02-23-2025 Potassium [Moles/Vol] 3.7 mmol/L 3.5-5.1 [facility] Comment on above: Performed By: #### E MP BMP, EBS LIPID #### [facility] [address] Serum or plasma anion gap de terminationOrdered By: Meri Newell on 02-23-2025 Anion gap [Moles/Vol] 10.4 mmol/L 6.0-15.0 [facility] Comment on above: Performed By: #### E DEANDRE PATEL, EBS LIPID #### [facility] [address] Serum or plasma total choles terol/high density lipoprotein (HDL) cholesterol mass ratOrdered By: Meir Newell on 02-23-2025 Cholesterol.total/Klaudia sterol in HDL [Mass ratio] 2.9 {ratio} <5.0 [facility] Comment on above: Result Comment: PERF ORMED BY: [place] [address] PATHOLOGIST MANAGING ATTORNEY DRE SALMON M.D. Performed By: #### E DEANDRE PATEL, EBS LIPID #### [address] Sodium [Moles/volume] in Ser um or PlasmaOrdered By: Meir Newell on 02-23-2025 Sodium [Moles/Vol] 137 mmol/L 136-145 [facility] Comment on above: Performed By: #### E DEANDRE PATEL, EBS LIPID #### [facility] [address] [place] [address] Triglyceride [Mass/volume] i n Serum or PlasmaOrdered By: Meir Newell on 02-23-2025 Triglyceride [Mass/Vol] 76 mg/dL 0-149 [facility] Comment on above: TRIG ATP III CLASSIF ICATIONTRIG less than 150 mg/dL NormalTRIG 150-199 mg/dL Borderline highTRIG 200-500 mg/dL High TRIG greater than 500 mg/dL Very highStandard traceable to the Center for Disease Conrtrol and Prevention (CDC) test method. Urea nitrogen [Mass/volume] in Serum or PlasmaOrdered By: Meir Newell on 02-23-2025 Urea nitrogen [Mass/Vol] 14 mg/dL 7-25 [facility] Comment on above: Performed By: #### E DEANDRE PATEL, EBS LIPID #### [facility] [address] [place] [address] MLR HEMOGLOBIN A1Con 025 Glucose [Mass/Vol] 103 mg/dL [facility] HbA1c (Bld) [Mass fraction] 5.2 % 4.5 - 6.2 % [facility] Comment on above: ADA RECOMMENDED LIMI T 4.0 - 6.0 ADA THERAPEUTIC TARGET < 7.0 ACTION SUGGESTED > 7.0 [facility] HbA1c (Bld) [Mass fraction]o n 08-30-2024 Interpretation and review of laboratory results Normal [facility] - Hematology and Cell countson 08-30-2024 HbA1c (Bld) [Mass fraction] 5.20 % [facility] Cytology Cervical or vaginal smear or scraping studyOrdered By: Adeline Darden on 09-15-[address] [facility] CBC AUTO DIFFon 11-27-2022 BASO # 0.1 103/ul Normal 0.0-0.[address] [facility] Comment on above: Performed By: #### D DIM #### [facility] [address] [place] [address] Dr. Tyra Poon Basophils/100 WBC (Bld) 0.9 % Normal 0.2-2.0 [facility] Comment on above: Performed By: #### D DIM #### [facility] [address] [place] [address] Dr. Tyra Poon EO # 0.3 103/ul Normal 0.0-0.[address] [facility] Comment on above: Performed By: #### D DIM #### [facility] [address] [place] [address] Dr. Tyra Poon Eosinophils/100 WBC (Bld) 3.9 % Normal 0.9-7.[address] [facility] Comment on above: Performed By: #### D DIM #### [facility] [address] [place] [address] Dr. Tyra Poon Erythrocyte distribution width (RBC) [Ratio] 14.1 % Normal 11.0-15.[address] [facility] Comment on above: Performed By: #### D DIM #### [facility] [address] [place] [address] Dr. Tyra Poon Hematocrit (Bld) [Volume fraction] 33.5 % Critically low 36.0-48.[address] [facility] Comment on above: Performed By: #### D DIM #### [facility] [address] [place] [address] Dr. Tyra Poon Hemoglobin (Bld) [Mass/Vol] 10.3 g/dL Critically low 12.0-16.0 [facility] Comment on above: Performed By: #### D DIM #### [facility] [address] [place] [address] Dr. Tyra Poon IG # 0.03 10e3/ul Normal 0.00-0.03 [facility] Comment on above: Performed By: #### D DIM #### [facility] [address] [place] [address] Dr. Tyra Poon IG % 0.4 % Normal 0.0-0.5 [facility] Comment on above: Performed By: #### D DIM #### [facility] [address] [place] [address] Dr. Tyra Poon LYMPH # 2.3 103/ul Normal 1.2-3.8 [facility] Comment on above: Performed By: #### D DIM #### [facility] [address] [place] [address] Dr. Tyra Poon Lymphocytes/100 WBC (Bld) 34.3 % Normal 20.5-60.0 [facility] Comment on above: Performed By: #### D DIM #### [facility] [address] [place] [address] Dr. Tyra Poon MANUAL DIFF REQ NO Normal [facility] Comment on above: Performed By: #### D DIM #### [facility] [address] [place] [address] Dr. Tyra Poon MCH (RBC) [Entitic mass] 25.9 pg Critically low 26.7-34.0 [facility] Comment on above: Performed By: #### D DIM #### [facility] [address] [place] [address] Dr. Tyra Poon MCHC (RBC) [Mass/Vol] 30.7 g/dL Normal 29.9-35.2 [facility] Comment on above: Performed By: #### D DIM #### [facility] [address] [place] [address] Dr. Tyra Poon MCV (RBC) [Entitic vol] 84.4 fL Normal 81.0-99.0 [facility] Comment on above: Performed By: #### D DIM #### [facility] [address] [place] [address] Dr. Tyra Poon MONO # 0.5 103/ul Normal 0.3-0.[address] [facility] Comment on above: Performed By: #### D DIM #### [facility] [address] [place] [address] Dr. Tyra Poon Monocytes/100 WBC (Bld) 7.2 % Normal 1.7-12.0 [facility] Comment on above: Performed By: #### D DIM #### [facility] [address] [place] [address] Dr. Tyra Poon NEUT # 3.6 103/ul Normal 1.4-6.[address] [facility] Comment on above: Performed By: #### D DIM #### [facility] [address] [place] [address] Dr. Tyra Poon Neutrophils/100 WBC (Bld) 53.3 % Normal 43.0-75.[address] [facility] Comment on above: Performed By: #### D DIM #### [facility] [address] [place] [address] Dr. Tyra Poon Platelet mean volume (Bld) [Entitic vol] 9.1 fL Critically low 9.5-13.[address] [facility] Comment on above: Performed By: #### D DIM #### [facility] [address] [place] [address] Dr. Tyra Poon PLT 325 103/ul Normal 150-450 [facility] Comment on above: Performed By: #### D DIM #### [facility] [address] [place] [address] Dr. Tyra Poon RBC 3.97 106/ul Critically low 4.20-5.40 [facility] Comment on above: Performed By: #### D DIM #### [facility] [address] [place] [address] Dr. Tyra Poon WBC 6.7 103/ul Normal 4.0-11.[address] [facility] Comment on above: Performed By: #### D DIM #### [facility] [id number] Tyra Poon D-DIMERon 11-27-2022 D-DIMER 0.36 mg/L FEU Normal <=0.59 [facility] Comment on above: Performed By: #### D DIM #### [facility] [address] [address] [address] Tyra Poon D-DIMER COMMENTS SEE BELOW Normal [facility] Comment on above: Result Comment: Incr eases [...] hospitalization. Performed By: #### D DIM #### [facility] [address] [place] [address] Dr. Tyra Poon ECHOCARDIO M/2D COMPLETEon 0 11-27-2022 ECHOCARDIO M/2D COMPLETE Patient: LAVERNE ROCA Exam Date: 11/27/2022 : 1980 Gender:F Ordering : EVANGELINA CHAVES [facility] Admission #: [id number] Family : Order #: [id number] CLICK HERE TO VIEW EXAM ECHOCARDIOGRAM REPORT [...] White M.D. on 11/29/2022 at 15:[address] [facility] FREE T4on 11-27-2022 Free T4 [Mass/Vol] 1.00 ng/dL Normal 0.76-1.46 [facility] Comment on above: Performed By: #### D DIM #### [facility] [address] [place], [place] [address] Dr. Tyra Poon PROF 14(COMP METB)on 023 Albumin [Mass/Vol] 3.1 g/dL Critically low 3.4-5.0 [facility] Comment on above: Performed By: #### T SH, CMP #### [facility] [address] [place], [place] [address] Dr. Tyra Poon Albumin/Globulin [Mass ratio] 0.8 {ratio} Normal [facility] Comment on above: Performed By: #### T SH, CMP #### [facility] [address] [address] [address] Tyra Poon ALP [Catalytic activity/Vol] 73 U/L Normal 46-[address] [facility] Comment on above: Performed By: #### T SH, CMP #### [facility] [address] [address] [address] Tyra Poon ALT [Catalytic activity/Vol] 17 U/L Normal 14-[address] [facility] Comment on above: Performed By: #### T SH, CMP #### [facility] [address] [address] [address] Tyra Poon Anion gap [Moles/Vol] 8.5 mmol/L Normal [facility] Comment on above: Performed By: #### T SH, CMP #### [facility] [address] [address] [address] Tyra Poon AST [Catalytic activity/Vol] 12 U/L Critically low 15-[address] [facility] Comment on above: Performed By: #### T SH, CMP #### [facility] [address] [address] [address] Tyra Poon Bilirubin [Mass/Vol] 0.2 mg/dL Normal 0.2-1.[address] [facility] Comment on above: Performed By: #### T SH, CMP #### [facility] [address] [address] [address] Tyra Poon Calcium [Mass/Vol] 8.5 mg/dL Normal 8.5-10.1 [facility] Comment on above: Performed By: #### T SH, CMP #### [facility] [address] [address] [address] Tyra Pono Chloride [Moles/Vol] 101 mmol/L Normal 98-[address] [facility] Comment on above: Performed By: #### T SH, CMP #### [facility] [address] [address] [address] Tyra Poon CO2 [Moles/Vol] 32.3 mmol/L Critically high 21.0-32.[address] [facility] Comment on above: Performed By: #### T SH, CMP #### [facility] [address] [address] [address] Tyra Poon Creatinine [Mass/Vol] 0.95 mg/dL Normal 0.55-1.[address] [facility] Comment on above: Performed By: #### T SH, CMP #### [facility] [address] [address] [address] Tyra Poon EGFR-AF IRISH >60 Normal >=60 [facility] Comment on above: Performed By: #### T SH, CMP #### [facility] [address] [address] [address] Tyra Poon EGFR-NON AF IRISH >60 Normal >=[address] [facility] Comment on above: Performed By: #### T SH, CMP #### [facility] [address] [place] [address] Dr. Tyra Poon Globulin (S) [Mass/Vol] 4.1 g/dL Normal [facility] Comment on above: Performed By: #### T SH, CMP #### [facility] [address] [address] [address] Tyra Poon Glucose [Mass/Vol] 105 mg/dL Normal 74-106 [facility] Comment on above: Performed By: #### T SH, CMP #### [facility] [address] [place] [address] Dr. Tyra Poon Potassium [Moles/Vol] 3.8 mmol/L Normal 3.5-5.1 [facility] Comment on above: Performed By: #### T SH, CMP #### [facility] [address] [address] [address] Tyra Poon Protein [Mass/Vol] 7.2 g/dL Normal 6.4-8.2 [facility] Comment on above: Performed By: #### T SH, CMP #### [facility] [address] [address] [address] Tyra Poon Sodium [Moles/Vol] 138 mmol/L Normal 136-145 [facility] Comment on above: Performed By: #### T SH, CMP #### [facility] [address] [place] [address] Dr. Tyra Poon Urea nitrogen [Mass/Vol] 14.0 mg/dL Normal 7.0-18.[address] [facility] Comment on above: Performed By: #### T SH, CMP #### [facility] [address] [place] [address] Dr. Tyra Poon Urea nitrogen/Creatinine [Mass ratio] 14.7 mg/mg Normal [facility] Comment on above: Performed By: #### T SH, CMP #### [facility] [address] [place] [address] Dr. Tyra Poon TSHon 11-27-2022 TSH 1.423 uIU/mL Normal 0.358-3.740 [facility] Comment on above: Performed By: #### T SH, CMP #### [facility] [address] [place] [address] Dr. Tyra Poon BUNon 09-12-2022 Urea nitrogen [Mass/Vol] 10.0 mg/dL Normal 7.0-18.[address] [facility] Comment on above: Performed By: #### D DIM #### [facility] [address] [place] [address] Dr. Tyra Poon CBC AUTO DIFFon 09-12-2022 BASO # 0.0 103/ul Normal 0.0-0.[address] [facility] Comment on above: Performed By: #### P REGQNT #### [facility] [address] [place] [address] Dr. Tyra Poon Basophils/100 WBC (Bld) 0.1 % Critically low 0.2-2.[address] [facility] Comment on above: Performed By: #### P REGQNT #### [facility] [address] [place] [address] Dr. Tyra Poon EO # 0.0 103/ul Normal 0.0-0.[address] [facility] Comment on above: Performed By: #### P REGQNT #### [facility] [address] [place] [address] Dr. Tyra Poon Eosinophils/100 WBC (Bld) 0.1 % Critically low 0.9-7.[address] [facility] Comment on above: Performed By: #### P REGQNT #### [facility] [address] [address] [address] Tyra Poon Erythrocyte distribution width (RBC) [Ratio] 14.9 % Normal 11.0-15.[address] [facility] Comment on above: Performed By: #### P REGQNT #### [facility] [address] [address] [address] Tyra Poon Hematocrit (Bld) [Volume fraction] 30.8 % Critically low 36.0-48.[address] [facility] Comment on above: Performed By: #### P REGQNT #### [facility] [address] [place] [address] Dr. Tyra Poon Hemoglobin (Bld) [Mass/Vol] 10.1 g/dL Critically low 12.0-16.[address] [facility] Comment on above: Performed By: #### P REGQNT #### [facility] [address] [place] [address] Dr. Tyra Poon IG # 0.14 10e3/ul Critically high 0.00-0.03 [facility] Comment on above: Performed By: #### P REGQNT #### [facility] [address] [place] [address] Dr. Tyra Poon IG % 0.9 % Critically high 0.0-0.5 [facility] Comment on above: Performed By: #### P REGQNT #### [facility] [address] [place] [address] Dr. Tyra Poon LYMPH # 2.2 103/ul Normal 1.2-3.8 [facility] Comment on above: Performed By: #### P REGQNT #### [facility] [address] [place] [address] Dr. Tyra Poon Lymphocytes/100 WBC (Bld) 14.6 % Critically low 20.5-60.[address] [facility] Comment on above: Performed By: #### P REGQNT #### [facility] [address] [address] [address] Tyra Poon MANUAL DIFF REQ NO Normal [facility] Comment on above: Performed By: #### P REGQNT #### [facility] [address] [place] [address] Dr. Tyra Poon MCH (RBC) [Entitic mass] 27.3 pg Normal 26.7-34.[address] [facility] Comment on above: Performed By: #### P REGQNT #### [facility] [address] [place] [address] Dr. Tyra Poon MCHC (RBC) [Mass/Vol] 32.8 g/dL Normal 29.9-35.[address] [facility] Comment on above: Performed By: #### P REGQNT #### [facility] [address] [place] [address] Dr. Tyra Poon MCV (RBC) [Entitic vol] 83.2 fL Normal 81.0-99.0 [facility] Comment on above: Performed By: #### P REGQNT #### [facility] [address] [place] [address] Dr. Tyra Poon MONO # 1.0 103/ul Critically high 0.3-0.8 [facility] Comment on above: Performed By: #### P REGQNT #### [facility] [address] [place] [address] Dr. Tyra Poon Monocytes/100 WBC (Bld) 6.6 % Normal 1.7-12.0 [facility] Comment on above: Performed By: #### P REGQNT #### [facility] [address] [place] [address] Dr. Tyra Poon NEUT # 11.8 103/ul Critically high 1.4-6.5 [facility] Comment on above: Performed By: #### P REGQNT #### [facility] [address] [place] [address] Dr. Tyra Poon Neutrophils/100 WBC (Bld) 77.7 % Critically high 43.0-75.[address] [facility] Comment on above: Performed By: #### P REGQNT #### [facility] [address] [place] [address] Dr. Tyra Poon Platelet mean volume (Bld) [Entitic vol] 9.3 fL Critically low 9.5-13.[address] [facility] Comment on above: Performed By: #### P REGQNT #### [facility] [address] [place] [address] Dr. Tyra Poon PLT 282 103/ul Normal 150-[address] [facility] Comment on above: Performed By: #### P REGQNT #### [facility] [address] [address] [address] Tyra Poon RBC 3.70 106/ul Critically low 4.20-5.40 [facility] Comment on above: Performed By: #### P REGQNT #### [facility] [address] [place] [address] Dr. Tyra Poon WBC 15.2 103/ul Critically high 4.0-11.0 [facility] Comment on above: Performed By: #### P REGQNT #### [facility] [address] [place] [address] Dr. Tyra Poon BASO # 0.0 103/ul Normal 0.0-0.[address] [facility] Comment on above: Performed By: #### C BC #### [facility] [address] [place] [address] Dr. yTra Poon Basophils/100 WBC (Bld) 0.2 % Normal 0.2-2.0 [facility] Comment on above: Performed By: #### C BC #### [facility] [address] [place] [address] Dr. Tyra Poon EO # 0.0 103/ul Normal 0.0-0.[address] [facility] Comment on above: Performed By: #### C BC #### [facility] [address] [place] [address] Dr. Tyra Poon Eosinophils/100 WBC (Bld) 0.0 % Critically low 0.9-7.[address] [facility] Comment on above: Performed By: #### C BC #### [facility] [address] [place] [address] Dr. Tyra Poon Erythrocyte distribution width (RBC) [Ratio] 14.6 % Normal 11.0-15.[address] [facility] Comment on above: Performed By: #### C BC #### [facility] [address] [address] [address] Tyra Poon Hematocrit (Bld) [Volume fraction] 34.6 % Critically low 36.0-48.[address] [facility] Comment on above: Performed By: #### C BC #### [facility] [address] [place] [address] Dr. Tyra Poon Hemoglobin (Bld) [Mass/Vol] 11.0 g/dL Critically low 12.0-16.[address] [facility] Comment on above: Performed By: #### C BC #### [facility] [address] [place] [address] Dr. Tyra Poon IG # 0.28 10e3/ul Critically high 0.00-0.03 [facility] Comment on above: Performed By: #### C BC #### [facility] [address] [place] [address] Dr. Tyra Poon IG % 1.3 % Critically high 0.0-0.5 [facility] Comment on above: Performed By: #### C BC #### [facility] [address] [place] [address] Dr. Tyra Poon LYMPH # 1.9 103/ul Normal 1.2-3.[address] [facility] Comment on above: Performed By: #### C BC #### [facility] [address] [place] [address] Dr. Tyra Poon Lymphocytes/100 WBC (Bld) 9.2 % Critically low 20.5-60.[address] [facility] Comment on above: Performed By: #### C BC #### [facility] [address] [place] [address] Dr. Tyra Poon MANUAL DIFF REQ NO Normal [facility] Comment on above: Performed By: #### C BC #### [facility] [address] [address] [address] Tyra Poon MCH (RBC) [Entitic mass] 27.0 pg Normal 26.7-34.[address] [facility] Comment on above: Performed By: #### C BC #### [facility] [address] [place] [address] Dr. Tyra Poon MCHC (RBC) [Mass/Vol] 31.8 g/dL Normal 29.9-35.[address] [facility] Comment on above: Performed By: #### C BC #### [facility] [address] [place] [address] Dr. Tyra Poon MCV (RBC) [Entitic vol] 84.8 fL Normal 81.0-99.0 [facility] Comment on above: Performed By: #### C BC #### [facility] [address] [place] [address] Dr. Tyra Poon MONO # 1.2 103/ul Critically high 0.3-0.8 [facility] Comment on above: Performed By: #### C BC #### [facility] [address] [place] [address] Dr. Tyra Poon Monocytes/100 WBC (Bld) 5.8 % Normal 1.7-12.0 [facility] Comment on above: Performed By: #### C BC #### [facility] [address] [place] [address] Dr. Tyra Poon NEUT # 17.7 103/ul Critically high 1.4-6.5 [facility] Comment on above: Performed By: #### C BC #### [facility] [address] [place] [address] Dr. Tyra Poon Neutrophils/100 WBC (Bld) 83.5 % Critically high 43.0-75.[address] [facility] Comment on above: Performed By: #### C BC #### [facility] [address] [place] [address] Dr. Tyra Poon Platelet mean volume (Bld) [Entitic vol] 9.6 fL Normal 9.5-13.[address] [facility] Comment on above: Performed By: #### C BC #### [facility] [address] [address] [address] Tyra Poon PLT 367 103/ul Normal 150-[address] [facility] Comment on above: Performed By: #### C BC #### [facility] [address] [place] [address] Dr. Tyra Poon RBC 4.08 106/ul Critically low 4.20-5.40 [facility] Comment on above: Performed By: #### C BC #### [facility] [address] [place] [address] Dr. Tyra Poon WBC 21.2 103/ul Critically high 4.0-11.0 [facility] Comment on above: Performed By: #### C BC #### [facility] [address] [place] [address] Dr. Tyra Poon CREATININEon 09-12-2022 Creatinine [Mass/Vol] 1.08 mg/dL Critically high 0.55-1.[address] [facility] Comment on above: Performed By: #### D DIM #### [facility] [address] [place] [address] Dr. Tyra Poon EGFR-AF IRISH >60 Normal >=60 [facility] Comment on above: Performed By: #### D DIM #### [facility] [address] [place] [address] Dr. Tyra Poon EGFR-NON AF IRISH 55 mL/min/1.73m2 Critically low >=[address] [facility] Comment on above: Performed By: #### D DIM #### [facility] [address] [place] [address] Dr. Tyra Poon CBC AUTO DIFFon 09-09-2022 BASO # 0.1 103/ul Normal 0.0-0.[address] [facility] Comment on above: Performed By: #### U AMIC #### [facility] [address] [place] [address] Dr. Tyra Poon Basophils/100 WBC (Bld) 0.7 % Normal 0.2-2.0 [facility] Comment on above: Performed By: #### U AMIC #### [facility] [address] [address] [address] Tyra Poon EO # 0.2 103/ul Normal 0.0-0.7 [facility] Comment on above: Performed By: #### U AMIC #### [facility] [address] [address] [address] Tyra Poon Eosinophils/100 WBC (Bld) 2.4 % Normal 0.9-7.0 [facility] Comment on above: Performed By: #### U AMIC #### [facility] [address] [address] [address] Tyra Poon Erythrocyte distribution width (RBC) [Ratio] 14.3 % Normal 11.0-15.[address] [facility] Comment on above: Performed By: #### U AMIC #### [facility] [address] [place] [address] Dr. Tyra Poon Hematocrit (Bld) [Volume fraction] 33.3 % Critically low 36.0-48.[address] [facility] Comment on above: Performed By: #### U AMIC #### [facility] [address] [place] [address] Dr. Tyra Poon Hemoglobin (Bld) [Mass/Vol] 10.8 g/dL Critically low 12.0-16.[address] [facility] Comment on above: Performed By: #### U AMIC #### [facility] [address] [place] [address] Dr. Tyra Poon IG # 0.05 10e3/ul Critically high 0.00-0.03 [facility] Comment on above: Performed By: #### U AMIC #### [facility] [address] [place] [address] Dr. Tyra Poon IG % 0.6 % Critically high 0.0-0.5 [facility] Comment on above: Performed By: #### U AMIC #### [facility] [address] [address] [address] Tyra Poon LYMPH # 3.0 103/ul Normal 1.2-3.8 [facility] Comment on above: Performed By: #### U AMIC #### [facility] [address] [address] [address] Tyra Poon Lymphocytes/100 WBC (Bld) 33.4 % Normal 20.5-60.[address] [facility] Comment on above: Performed By: #### U AMIC #### [facility] [address] [address] [address] Tyra Poon MANUAL DIFF REQ NO Normal [facility] Comment on above: Performed By: #### U AMIC #### [facility] [address] [address] [address] Tyra Poon MCH (RBC) [Entitic mass] 27.0 pg Normal 26.7-34.[address] [facility] Comment on above: Performed By: #### U AMIC #### [facility] [address] [place] [address] Dr. Tyra Poon MCHC (RBC) [Mass/Vol] 32.4 g/dL Normal 29.9-35.[address] [facility] Comment on above: Performed By: #### U AMIC #### [facility] [address] [place] [address] Dr. Tyra Poon MCV (RBC) [Entitic vol] 83.3 fL Normal 81.0-99.0 [facility] Comment on above: Performed By: #### U AMIC #### [facility] [address] [place] [address] Dr. Tyra Poon MONO # 0.6 103/ul Normal 0.3-0.[address] [facility] Comment on above: Performed By: #### U AMIC #### [facility] [address] [place] [address] Dr. Tyra Poon Monocytes/100 WBC (Bld) 6.3 % Normal 1.7-12.0 [facility] Comment on above: Performed By: #### U AMIC #### [facility] [address] [place] [address] Dr. Tyra Poon NEUT # 5.0 103/ul Normal 1.4-6.[address] [facility] Comment on above: Performed By: #### U AMIC #### [facility] [address] [address] [address] Tyra Poon Neutrophils/100 WBC (Bld) 56.6 % Normal 43.0-75.[address] [facility] Comment on above: Performed By: #### U AMIC #### [facility] [address] [address] [address] Tyra Poon Platelet mean volume (Bld) [Entitic vol] 9.3 fL Critically low 9.5-13.[address] [facility] Comment on above: Performed By: #### U AMIC #### [facility] [address] [address] [address] Tyra Poon PLT 310 103/ul Normal 150-[address] [facility] Comment on above: Performed By: #### U AMIC #### [facility] [address] [place] [address] Dr. Tyra Poon RBC 4.00 106/ul Critically low 4.20-5.40 [facility] Comment on above: Performed By: #### U AMIC #### [facility] [address] [address] [address] Tyra Poon WBC 8.9 103/ul Normal 4.0-11.[address] [facility] Comment on above: Performed By: #### U AMIC #### [facility] [address] [place] [address] Dr. Tyra Poon PREG QUANT HCGon 09-09-2022 HCG QUANT <[address] [facility] Comment on above: Performed By: #### P REGQNT #### [facility] [address] [place] [address] Dr. Tyra Poon HCG RANGE SEE BELOW Normal [facility] Comment on above: Result Comment: 5-50 0.2-1 WEEK 50-500 1-2 WEEKS 100-5,000 2-3 WEEKS 500-10,000 3-4 WEEKS 1,000-50,000 4-5 WEEKS 10,000-100,000 5-6 WEEKS 15,000-200,000 6-8 WEEKS 10,000-100,000 2-3 MONTHS Performed By: #### P REGQNT #### [facility] [address] [place] [address] Dr. Tyra Poon TYPE AND SCREENon 09-09-2022 TYPE AND SCREEN Negative Normal [facility] Comment on above: Performed By: #### P REGQNT #### [facility] [address] [place] [address] Dr. Tyra Poon QUANTIFERON TB GOLD PLUSon 0 07-10-2022 QuantiFERON Criteria Comment Normal [facility] Comment on above: Result Comment: Martínez [...] test. Performed By: #### Q NTTB #### [facility] [address] [place] [address] Dr. Tyra Poon QuantiFERON Incubation Incubation performed. Normal [facility] Comment on above: Performed By: #### Q NTTB #### [facility] [address] [place] [address] Dr. Tyra Poon QuantiFERON Mitogen Value >10.[address] [facility] Comment on above: Performed By: #### Q NTTB #### [facility] [address] [place] [address] Dr. Tyra Poon QuantiFERON Nil Value 0.05 IU/mL Normal [facility] Comment on above: Performed By: #### Q NTTB #### [facility] [address] [place] [address] Dr. Tyra Poon QuantiFERON TB1 Ag Value 0.06 IU/mL Normal [facility] Comment on above: Performed By: #### Q NTTB #### [facility] [address] [place] [address] Dr. yTra Poon QuantiFERON TB2 Ag Value 0.07 IU/mL Normal [facility] Comment on above: Performed By: #### Q NTTB #### [facility] [address] [place] [address] Dr. Tyra Poon QuantiFERON-TB Gold Plus Negative Normal Negative [facility] Comment on above: Result Comment: No r esponse to M tuberculosis antigens detected. Infection with M tuberculosis is unlikely, but high risk individuals should be considered for additional testing (ATS/IDSA/CDC Clinical Practice Guidelines, 2017). The reference range is an Antigen minus Nil result of <0.35 IU/mL. Chemiluminescence immunoassay methodology Performed By: #### Q NTTB #### [facility] [address] [place] [address] Dr. Trya Poon HEPATITIS B SURFACE ANTIBODY , QUANTon 07-09-2022 Hepatitis B Surf AB Quant <3.1 Critically low Immunity>9.[address] [facility] Comment on above: Result Comment: Stat us of Immunity Anti-HBs Level Inconsistent with Immunity 0.0 - 9.9 Consistent with Immunity >9.9 Performed By: #### H EPBSRF #### [facility] [address] [place] [address] Dr. Tyra Poon MMR IMMUNITYon 07-09-2022 Mumps Abs, IgG 142.0 AU/mL Normal Immune >10.9 [facility] Comment on above: Result Comment: Nega tive <9.0 Equivocal 9.0 - 10.9 Positive >10.9 A positive result generally indicates past exposure to Mumps virus or previous vaccination. Performed By: #### P REGQNT #### [facility] [address] [place] [address] Dr. Tyra Poon Rubella Antibodies, IgG 11.90 index Normal Immune >0.[address] [place] [address] Comment on above: Result Comment: Non- immune <0.90 Equivocal 0.90 - 0.99 Immune >0.99 Performed By: #### P REGQNT #### [facility] [address] [place] [address] Dr. Tyra Poon Rubeola Ab, IgG 222.0 AU/mL Normal Immune >16.4 [facility] Comment on above: Result Comment: Nega tive <13.5 Equivocal 13.5 - 16.4 Positive >16.4 Presence of antibodies to Rubeola is presumptive evidence of immunity except when acute infection is suspected. Performed By: #### P REGQNT #### [facility] [address] [place] [address] Dr. Tyra Poon VARICELLA IGG ABon 3 Varicella Zoster IgG 3514 index Normal Immune >[address] [facility] Comment on above: Result Comment: Nega tive <135 Equivocal 135 - 165 Positive >165 A positive result generally indicates exposure to the pathogen or administration of specific immunoglobulins, but it is not indication of active infection or stage of disease. Performed By: #### U AMIC #### [facility] [address] [place] [address] Dr. Tyra Poon PAP ACOG PANEL 2: 30 to 65on 05-31-2022 . . Normal [facility] Comment on above: Result Comment: Perf ormed at: WB Performed By: #### [id number] #### [facility] [address] [place] [address] Dr. Tyra Poon Age Gdln ACOG Testing 30-[address] [facility] Comment on above: Performed By: #### [id number] #### [facility] [address] [place] [address] Dr. Tyra Poon DIAGNOSIS: Comment Normal [facility] Comment on above: Result Comment: NEGA TIVE FOR INTRAEPITHELIAL LESION OR MALIGNANCY. CELLULAR CHANGES ASSOCIATED WITH INFLAMMATION ARE PRESENT. Performed at: WB Performed By: #### [id number] #### [facility] [address] [place] [address] Dr. Tyra Poon HPV Aptima Negative Normal Negative [facility] Comment on above: Result Comment: This nucleic acid amplification test detects fourteen high-risk HPV types (16,18,31,33,35,39,45,51,52,56,58,59,66,68) without differentiation. Performed at: =G Performed By: #### [id number] #### [facility] [address] [place] [address] Dr. Tyra Poon HPV Genotype Reflex Comment Normal [facility] Comment on above: Result Comment: Crit eria not met, HPV Genotype not performed. Performed at: WB Performed By: #### [id number] #### [facility] [address] [place] [address] Dr. Tyra Poon Methodology: Comment Normal [facility] Comment on above: Result Comment: This liquid based ThinPrep(R) pap test was screened with the use of an image guided system. Performed at: WB Performed By: #### [id number] #### [facility] [address] [place] [address] Dr. Tyra Poon Note: Comment Normal [facility] Comment on above: Result Comment: The Pap smear is a screening test designed to aid in the detection of premalignant and malignant conditions of the uterine cervix. It is not a diagnostic procedure and should not be used as the sole means of detecting cervical cancer. Both false-positive and false-negative reports do occur. . Performed at: WB Performed By: #### [id number] #### [facility] [address] [place] [address] Dr. Tyra Poon Performed by: Comment Normal [facility] Comment on above: Result Comment: Sharita Watt Topstitcher Zigzag (ASCP) Performed at: WB Performed By: #### [id number] #### [facility] [address] [place] [address] Dr. Tyra Poon Specimen adequacy: Comment Normal [facility] Comment on above: Result Comment: Sati sfactory for evaluation. Endocervical and/or squamous metaplastic cells (endocervical component) are present. Performed at: WB Performed By: #### [id number] #### [facility] [address] [place] [address] Dr. Tyra Poon US PELVIS AND TRANSVAGon [...] TIM PAZ Date: 2022-05-14 09:50 Normal [facility] AMYLASEon 04-30-2022 Amylase [Catalytic activity/Vol] 40 U/L Normal 25-[address] [facility] Comment on above: Performed By: #### D DIM #### [facility] [address] [place] [address] Dr. Tyra Poon CBC AUTO DIFFon 04-30-2022 BASO # 0.1 103/ul Normal 0.0-0.[address] [facility] Comment on above: Performed By: #### C BC #### [facility] [address] [place] [address] Dr. Tyra Poon Basophils/100 WBC (Bld) 1.3 % Normal 0.2-2.0 [facility] Comment on above: Performed By: #### C BC #### [facility] [address] [place] [address] Dr. Tyra Poon EO # 0.2 103/ul Normal 0.0-0.[address] [facility] Comment on above: Performed By: #### C BC #### [facility] [address] [place] [address] Dr. Tyra Poon Eosinophils/100 WBC (Bld) 2.9 % Normal 0.9-7.[address] [facility] Comment on above: Performed By: #### C BC #### [facility] [address] [place] [address] Dr. Tyra Poon Erythrocyte distribution width (RBC) [Ratio] 14.4 % Normal 11.0-15.[address] [facility] Comment on above: Performed By: #### C BC #### [facility] [address] [place] [address] Dr. Tyra Poon Hematocrit (Bld) [Volume fraction] 36.8 % Normal 36.0-48.[address] [facility] Comment on above: Performed By: #### C BC #### [facility] [address] [place] [address] Dr. Tyra Poon Hemoglobin (Bld) [Mass/Vol] 12.0 g/dL Normal 12.0-16.[address] [facility] Comment on above: Performed By: #### C BC #### [facility] [address] [place] [address] Dr. Tyra Poon IG # 0.05 10e3/ul Critically high 0.00-0.03 [facility] Comment on above: Performed By: #### C BC #### [facility] [address] [place] [address] Dr. Tyra Poon IG % 0.6 % Critically high 0.0-0.5 [facility] Comment on above: Performed By: #### C BC #### [facility] [address] [place] [address] Dr. Tyra Poon LYMPH # 3.3 103/ul Normal 1.2-3.[address] [facility] Comment on above: Performed By: #### C BC #### [facility] [address] [place] [address] Dr. Tyra Poon Lymphocytes/100 WBC (Bld) 38.9 % Normal 20.5-60.[address] [facility] Comment on above: Performed By: #### C BC #### [facility] [address] [place] [address] Dr. Tyra Poon MANUAL DIFF REQ NO Normal [facility] Comment on above: Performed By: #### C BC #### [facility] [address] [place] [address] Dr. Tyra Poon MCH (RBC) [Entitic mass] 27.0 pg Normal 26.7-34.[address] [facility] Comment on above: Performed By: #### C BC #### [facility] [address] [place] [address] Dr. Tyra Poon MCHC (RBC) [Mass/Vol] 32.6 g/dL Normal 29.9-35.[address] [facility] Comment on above: Performed By: #### C BC #### [facility] [address] [place] [address] Dr. Tyra Poon MCV (RBC) [Entitic vol] 82.9 fL Normal 81.0-99.0 [facility] Comment on above: Performed By: #### C BC #### [facility] [address] [place] [address] Dr. Tyra Poon MONO # 0.6 103/ul Normal 0.3-0.[address] [facility] Comment on above: Performed By: #### C BC #### [facility] [address] [place] [address] Dr. Tyra Poon Monocytes/100 WBC (Bld) 6.7 % Normal 1.7-12.0 [facility] Comment on above: Performed By: #### C BC #### [facility] [address] [place] [address] Dr. Tyra Poon NEUT # 4.2 103/ul Normal 1.4-6.[address] [facility] Comment on above: Performed By: #### C BC #### [facility] [address] [place] [address] Dr. Tyra Poon Neutrophils/100 WBC (Bld) 49.6 % Normal 43.0-75.[address] [facility] Comment on above: Performed By: #### C BC #### [facility] [address] [place] [address] Dr. Tyra Poon Platelet mean volume (Bld) [Entitic vol] 9.4 fL Critically low 9.5-13.[address] [facility] Comment on above: Performed By: #### C BC #### [facility] [address] [place] [address] Dr. Tyra Poon PLT 347 103/ul Normal 150-450 [facility] Comment on above: Performed By: #### C BC #### [facility] [address] [place], [place] [address] Dr. Tyra Poon RBC 4.44 106/ul Normal 4.20-5.[address] [facility] Comment on above: Performed By: #### C BC #### [facility] [address] [place], [place] [address] Dr. Tyra Poon WBC 8.4 103/ul Normal 4.0-11.[address] [facility] Comment on above: Performed By: #### C BC #### [facility] [address] [place], [place] [address] ABD/PELVIS WO CONon 04-30 CT ABD/PELVIS [...] TIM PAZ Date: 2022-04-30 10:10 Normal [facility] ER URINE PROFILEon 2 Bilirubin Ql (U) Negative Normal NEGATIVE [facility] Comment on above: Performed By: #### U AMIC #### [facility] [address] [place] [address] [address] Tyra Poon Clarity (U) CLEAR Normal CLEAR [facility] Comment on above: Performed By: #### U AMIC #### [facility] [address] [place] [address] Dr. Tyra Poon Color (U) YELLOW Normal YELLOW [facility] Comment on above: Performed By: #### U AMIC #### [facility] [address] [place] [address] [address] Tyra Poon ERUAHMarysol A micrscopic examination will be performed if indicated. Normal [facility] Comment on above: Performed By: #### U AMIC #### [facility] [address] [place] [address] [address] Tyra Poon Glucose Ql (U) Negative Normal NEGATIVE [facility] Comment on above: Performed By: #### U AMIC #### [facility] [address] [place] [address] [address] Tyra Poon Hemoglobin Ql (U) Negative Normal NEGATIVE [facility] Comment on above: Performed By: #### U AMIC #### [facility] [address] [place] [address] [address] Tyra Poon Ketones Ql (U) Negative Normal NEGATIVE [facility] Comment on above: Performed By: #### U AMIC #### [facility] [address] [place] [address] [address] Tyra Poon LEUKOCYTES Negative Normal NEGATIVE [facility] Comment on above: Performed By: #### U AMIC #### [facility] [address] [place] [address] Dr. Tyra Poon Nitrite Ql (U) Negative Normal NEGATIVE [facility] Comment on above: Performed By: #### U AMIC #### [facility] [address] [place] [address] Dr. Tyra Poon pH (U) 6.0 [pH] Normal 5-[address] [facility] Comment on above: Performed By: #### U AMIC #### [facility] [address] [place] [address] Dr. Tyra Poon SPEC GRAVITY >=1.030 Abnormal 1.005-<=1.[address] [facility] Comment on above: Performed By: #### U AMIC #### [facility] [address] [place] [address] Dr. Tyra Poon UA PROTEIN Negative Normal NEGATIVE/ TRACE [facility] Comment on above: Performed By: #### U AMIC #### [facility] [address] [place] [address] Dr. Tyra Poon UR MICRO IND NOT INDICATED Normal [facility] Comment on above: Performed By: #### U AMIC #### [facility] [address] [place] [address] Dr. Tyra Poon Urobilinogen Qn (U) 0.2 {Phoenix'U}/dL Normal 0.2 - 1. [address] [facility] Comment on above: Performed By: #### U AMIC #### [facility] [address] [place] [address] Dr. Tyra Poon LIPASEon 04-30-2022 Lipase [Catalytic activity/Vol] 83.0 U/L Normal 73.0-393.[address] [facility] Comment on above: Performed By: #### D DIM #### [facility] [address] [place] [address] Dr. Tyra Poon URon 04-30-2022 , QUAL Negative Normal NEGATIVE [facility] Comment on above: Performed By: #### U AMIC #### [facility] [address] [place] [address] Dr. Tyra Poon PROF 14(COMP METB)on 022 Albumin [Mass/Vol] 3.6 g/dL Normal 3.4-5.0 [facility] Comment on above: Performed By: #### D DIM #### [facility] [address] [place] [address] Dr. Tyra Poon Albumin/Globulin [Mass ratio] 0.8 {ratio} Normal [facility] Comment on above: Performed By: #### D DIM #### [facility] [address] [place] [address] [address] Tyra Poon ALP [Catalytic activity/Vol] 65 U/L Normal 46-[address] [facility] Comment on above: Performed By: #### D DIM #### [facility] [address] [place] [address] Dr. Tyra Poon ALT [Catalytic activity/Vol] 13 U/L Critically low 14-[address] [facility] Comment on above: Performed By: #### D DIM #### [facility] [address] [place] [address] Dr. Tyra Poon Anion gap [Moles/Vol] 12.5 mmol/L Normal [facility] Comment on above: Performed By: #### D DIM #### [facility] [address] [place] [address] Dr. Tyra Poon AST [Catalytic activity/Vol] 12 U/L Critically low 15-[address] [facility] Comment on above: Performed By: #### D DIM #### [facility] [address] [place] [address] Dr. Tyra Poon Bilirubin [Mass/Vol] 0.3 mg/dL Normal 0.2-1.[address] [facility] Comment on above: Performed By: #### D DIM #### [facility] [address] [place] [address] Dr. Tyra Poon Calcium [Mass/Vol] 8.8 mg/dL Normal 8.5-10.1 [facility] Comment on above: Performed By: #### D DIM #### [facility] [address] [place] [address] Dr. Tyra Poon Chloride [Moles/Vol] 103 mmol/L Normal 98-[address] [facility] Comment on above: Performed By: #### D DIM #### [facility] [address] [place] [address] [address] Tyra Poon CO2 [Moles/Vol] 26.3 mmol/L Normal 21.0-32.0 [facility] Comment on above: Performed By: #### D DIM #### [facility] [address] [place] [address] [address] Tyra Poon Creatinine [Mass/Vol] 0.87 mg/dL Normal 0.55-1.[address] [facility] Comment on above: Performed By: #### D DIM #### [facility] [address] [place] [address] [address] Tyra Poon EGFR-AF IRISH >60 Normal >=60 [facility] Comment on above: Performed By: #### D DIM #### [facility] [address] [place] [address] [address] Tyra Poon EGFR-NON AF IRISH >60 Normal >=[address] [facility] Comment on above: Performed By: #### D DIM #### [facility] [address] [place] [address] [address] Tyra Poon Globulin (S) [Mass/Vol] 4.3 g/dL Normal [facility] Comment on above: Performed By: #### D DIM #### [facility] [address] [place] [address] Dr. Tyra Poon Glucose [Mass/Vol] 120 mg/dL Critically high 74-106 [facility] Comment on above: Performed By: #### D DIM #### [facility] [address] [place] [address] [address] Tyra Poon Potassium [Moles/Vol] 3.8 mmol/L Normal 3.5-5.[address] [facility] Comment on above: Performed By: #### D DIM #### [facility] [address] [place] [address] [address] Tyra Poon Protein [Mass/Vol] 7.9 g/dL Normal 6.4-8.2 [facility] Comment on above: Performed By: #### D DIM #### [facility] [address] [place] [address] Dr. Tyra Poon Sodium [Moles/Vol] 138 mmol/L Normal 136-145 [facility] Comment on above: Performed By: #### D DIM #### [facility] [address] [place] [address] Dr. Tyra Poon Urea nitrogen [Mass/Vol] 11.0 mg/dL Normal 7.0-18.[address] [facility] Comment on above: Performed By: #### D DIM #### [facility] [address] [place] [address] Dr. Tyra Poon Urea nitrogen/Creatinine [Mass ratio] 12.6 mg/mg Normal [facility] Comment on above: Performed By: #### D DIM #### [facility] [address] [place] [address] Dr. Tyra Poon CBC AUTO DIFFon 01-12-2022 BASO # 0.1 103/ul Normal 0.0-0.[address] [facility] Comment on above: Performed By: #### D DIM #### [facility] [address] [place] [address] Dr. Tyra Poon Basophils/100 WBC (Bld) 0.9 % Normal 0.2-2.0 [facility] Comment on above: Performed By: #### D DIM #### [facility] [address] [place] [address] Dr. Tyra Poon EO # 0.2 103/ul Normal 0.0-0.[address] [facility] Comment on above: Performed By: #### D DIM #### [facility] [address] [place] [address] Dr. Tyra Poon Eosinophils/100 WBC (Bld) 2.2 % Normal 0.9-7.[address] [facility] Comment on above: Performed By: #### D DIM #### [facility] [address] [place] [address] Dr. Tyra Poon Erythrocyte distribution width (RBC) [Ratio] 14.0 % Normal 11.0-15.[address] [facility] Comment on above: Performed By: #### D DIM #### [facility] [address] [place] [address] [address] Tyra Poon Hematocrit (Bld) [Volume fraction] 34.1 % Critically low 36.0-48.[address] [facility] Comment on above: Performed By: #### D DIM #### [facility] [address] [place] [address] Dr. Tyra Poon Hemoglobin (Bld) [Mass/Vol] 10.7 g/dL Critically low 12.0-16.[address] [facility] Comment on above: Performed By: #### D DIM #### [facility] [address] [place] [address] Dr. Tyra Poon IG # 0.05 10e3/ul Critically high 0.00-0.03 [facility] Comment on above: Performed By: #### D DIM #### [facility] [address] [place] [address] Dr. Tyra Poon IG % 0.6 % Critically high 0.0-0.5 [facility] Comment on above: Performed By: #### D DIM #### [facility] [address] [place] [address] Dr. Tyra Poon LYMPH # 2.6 103/ul Normal 1.2-3.[address] [facility] Comment on above: Performed By: #### D DIM #### [facility] [address] [place] [address] Dr. Tyra Poon Lymphocytes/100 WBC (Bld) 31.8 % Normal 20.5-60.[address] [facility] Comment on above: Performed By: #### D DIM #### [facility] [address] [place] [address] Dr. Tyra Poon MANUAL DIFF REQ NO Normal [facility] Comment on above: Performed By: #### D DIM #### [facility] [address] [place] [address] Dr. Tyra Poon MCH (RBC) [Entitic mass] 26.6 pg Critically low 26.7-34.[address] [facility] Comment on above: Performed By: #### D DIM #### [facility] [address] [place] [address] [address] Tyra Poon MCHC (RBC) [Mass/Vol] 31.4 g/dL Normal 29.9-35.[address] [facility] Comment on above: Performed By: #### D DIM #### [facility] [address] [place] [address] [address] Tyra Poon MCV (RBC) [Entitic vol] 84.8 fL Normal 81.0-99.0 [facility] Comment on above: Performed By: #### D DIM #### [facility] [address] [place] [address] [address] Tyra Poon MONO # 0.5 103/ul Normal 0.3-0.[address] [facility] Comment on above: Performed By: #### D DIM #### [facility] [address] [place] [address] Dr. Tyra Poon Monocytes/100 WBC (Bld) 6.4 % Normal 1.7-12.0 [facility] Comment on above: Performed By: #### D DIM #### [facility] [address] [place] [address] Dr. Tyra Poon NEUT # 4.7 103/ul Normal 1.4-6.[address] [facility] Comment on above: Performed By: #### D DIM #### [facility] [address] [place] [address] Dr. Tyra Poon Neutrophils/100 WBC (Bld) 58.1 % Normal 43.0-75.[address] [facility] Comment on above: Performed By: #### D DIM #### [facility] [address] [place] [address] Dr. Tyra Poon Platelet mean volume (Bld) [Entitic vol] 9.7 fL Normal 9.5-13.[address] [facility] Comment on above: Performed By: #### D DIM #### [facility] [address] [place] [address] Dr. Tyra Poon PLT 318 103/ul Normal 150-450 [facility] Comment on above: Performed By: #### D DIM #### [facility] [address] [place] [address] [address] Tyra Poon RBC 4.02 106/ul Critically low 4.20-5.40 [facility] Comment on above: Performed By: #### D DIM #### [facility] [address] [place] [address] Dr. Tyra Poon WBC 8.0 103/ul Normal 4.0-11.0 [facility] Comment on above: Performed By: #### D DIM #### [facility] [address] [place] [address] [address] Tyra Poon FERRITINon 01-12-2022 Ferritin [Mass/Vol] 12.0 ng/mL Normal 6.2-137.0 [facility] Comment on above: Performed By: #### D DIM #### [facility] [address] [place] [address] Dr. Tyra Poon FREE T4on 01-12-2022 Free T4 [Mass/Vol] 1.04 ng/dL Normal 0.76-1.46 [facility] Comment on above: Performed By: #### P REGQNT #### [facility] [address] [place] [address] Dr. Tyra Poon IRONon 01-12-2022 Iron [Mass/Vol] 32.0 ug/dL Critically low 50.0-170.0 [facility] Comment on above: Performed By: #### D DIM #### [facility] [address] [place] [address] Dr. Tyra Poon LIPID PROFILEon 01-12-2022 CHOL-HDL RATIO NORM SEE BELOW Normal [facility] Comment on above: Result Comment: 3.3 - 4.4 LOW RISK 4.4 - 7.1 AVERAGE RISK 7.1 - 11.0 MODERATE RISK >11.0 HIGH RISK Performed By: #### U AMIC #### [facility] [address] [place] [address] Dr. Tyra Poon Cholesterol [Mass/Vol] 236 mg/dL Critically high <=[address] [facility] Comment on above: Performed By: #### U AMIC #### [facility] [address] [place], [place] [id number] Dr. Tyra Poon Cholesterol in HDL [Mass/Vol] 65 mg/dL Critically high 40-[address] [facility] Comment on above: Performed By: #### U AMIC #### [facility] [address] [place] [address] [address] Tyra Poon Cholesterol in LDL [Mass/Vol] 149.8 mg/dL Normal [facility] Comment on above: Performed By: #### U AMIC #### [facility] [address] [place] [address] [address] Tyra Poon Cholesterol.total/Klaudia sterol in HDL [Mass ratio] 3.6 {ratio} Normal [facility] Comment on above: Performed By: #### U AMIC #### [facility] [address] [place] [address] [address] Tyra Poon HDL NORMAL > or = 60 mg/dl - LO W CARDIOVASCULAR RISK <40 mg/dl - HIGH CARDIOVASCULAR RISK Normal [facility] Comment on above: Performed By: #### U AMIC #### [facility] [address] [place] [address] [address] Tyra Poon LDL CALC NORMAL SEE BELOW Normal [facility] Comment on above: Result Comment: <100 mg/dl OPTIMAL 100 - 129 mg/dl NEAR OR ABOVE OPTIMAL 130 - 159 mg/dl BORDERLINE HIGH 160 - 189 mg/dl HIGH >190 mg/dl VERY HIGH Performed By: #### U AMIC #### [facility] [address] [address] [address] Tyra Poon Triglyceride [Mass/Vol] 106 mg/dL Normal <=[address] [facility] Comment on above: Performed By: #### U AMIC #### [facility] [address] [address] [address] Tyra Poon VLDL CALC 21.2 mg/dL Normal [facility] Comment on above: Performed By: #### U AMIC #### [facility] [address] [address] [address] Tyra Poon PROF 14(COMP METB)on 022 Albumin [Mass/Vol] 3.4 g/dL Normal 3.4-5.0 [facility] Comment on above: Performed By: #### U AMIC #### [facility] [address] [address] [address] Tyra Poon Albumin/Globulin [Mass ratio] 0.8 {ratio} Normal [facility] Comment on above: Performed By: #### U AMIC #### [facility] [address] [address] [address] Tyra Poon ALP [Catalytic activity/Vol] 63 U/L Normal 46-[address] [facility] Comment on above: Performed By: #### U AMIC #### [facility] [address] [address] [address] Tyra Poon ALT [Catalytic activity/Vol] 24 U/L Normal 14-[address] [facility] Comment on above: Performed By: #### U AMIC #### [facility] [address] [address] [address] Tyra Poon Anion gap [Moles/Vol] 10.4 mmol/L Normal [facility] Comment on above: Performed By: #### U AMIC #### [facility] [address] [address] [address] Tyra Poon AST [Catalytic activity/Vol] 14 U/L Critically low 15-[address] [facility] Comment on above: Performed By: #### U AMIC #### [facility] [address] [address] [address] Tyra Poon Bilirubin [Mass/Vol] 0.3 mg/dL Normal 0.2-1.[address] [facility] Comment on above: Performed By: #### U AMIC #### [facility] [address] [address] [address] Tyra Poon Calcium [Mass/Vol] 8.7 mg/dL Normal 8.5-10.1 [facility] Comment on above: Performed By: #### U AMIC #### [facility] [address] [address] [address] Tyra Poon Chloride [Moles/Vol] 101 mmol/L Normal 98-[address] [facility] Comment on above: Performed By: #### U AMIC #### [facility] [address] [address] [address] Tyra Poon CO2 [Moles/Vol] 29.8 mmol/L Normal 21.0-32.0 [facility] Comment on above: Performed By: #### U AMIC #### [facility] [address] [address] [address] Tyra Poon Creatinine [Mass/Vol] 0.89 mg/dL Normal 0.55-1.[address] [facility] Comment on above: Performed By: #### U AMIC #### [facility] [address] [address] [address] Tyra Poon EGFR-AF IRISH >60 Normal >=60 [facility] Comment on above: Performed By: #### U AMIC #### [facility] [address] [address] [address] Tyra Poon EGFR-NON AF IRISH >60 Normal >=[address] [facility] Comment on above: Performed By: #### U AMIC #### [facility] [address] [address] [address] Tyra Poon Globulin (S) [Mass/Vol] 4.3 g/dL Normal [facility] Comment on above: Performed By: #### U AMIC #### [facility] [address] [address] [address] Tyra Poon Glucose [Mass/Vol] 107 mg/dL Critically high 74-106 [facility] Comment on above: Performed By: #### U AMIC #### [facility] [address] [address] [address] Tyra Poon Potassium [Moles/Vol] 4.2 mmol/L Normal 3.5-5.[address] [facility] Comment on above: Performed By: #### U AMIC #### [facility] [address] [address] [address] Tyra Poon Protein [Mass/Vol] 7.7 g/dL Normal 6.4-8.2 [facility] Comment on above: Performed By: #### U AMIC #### [facility] [address] [address] [address] Tyra Poon Sodium [Moles/Vol] 137 mmol/L Normal 136-145 [facility] Comment on above: Performed By: #### U AMIC #### [facility] [address] [place] [address] Dr. Tyra Poon Urea nitrogen [Mass/Vol] 15.0 mg/dL Normal 7.0-18.[address] [facility] Comment on above: Performed By: #### U AMIC #### [facility] [address] [place] [address] Dr. Tyra Poon Urea nitrogen/Creatinine [Mass ratio] 16.9 mg/mg Normal [facility] Comment on above: Performed By: #### U AMIC #### [facility] [address] [place] [address] Dr. Tyra Poon TSHon 01-12-2022 TSH 2.550 uIU/mL Normal 0.358-3.740 [facility] Comment on above: Performed By: #### U AMIC #### [facility] [address] [place] [address] Dr. Tyra Poon UA RANDOM W/MICROSCOPICon BACTERIA NONE SEEN Normal NONE SEEN [facility] Comment on above: Performed By: #### U AMIC #### [facility] [address] [place] [address] Dr. Tyra Poon Bilirubin Ql (U) Negative Normal NEGATIVE [facility] Comment on above: Performed By: #### U AMIC #### [facility] [address] [place] [address] Dr. Tyra Poon CAST NONE SEEN Normal NONE SEEN [facility] Comment on above: Performed By: #### U AMIC #### [facility] [address] [place] [address] Dr. Tyra Poon Clarity (U) CLEAR Normal CLEAR [facility] Comment on above: Performed By: #### U AMIC #### [facility] [address] [place] [address] Dr. Tyra Poon Color (U) YELLOW Normal YELLOW [facility] Comment on above: Performed By: #### U AMIC #### [facility] [address] [address] [address] Tyra Poon Crystals LM Nom (Urine sed) NONE SEEN Normal NONE SEEN [facility] Comment on above: Performed By: #### U AMIC #### [facility] [address] [address] [address] Tyra Poon Epithelial cells LM Ql (Urine sed) RARE Normal NONE SEEN /RARE [facility] Comment on above: Performed By: #### U AMIC #### [facility] [address] [address] [address] Tyra Poon Glucose Ql (U) Negative Normal NEGATIVE [facility] Comment on above: Performed By: #### U AMIC #### [facility] [address] [address] [address] Tyra Poon Hemoglobin Ql (U) MODERATE Abnormal NEGATIVE [facility] Comment on above: Performed By: #### U AMIC #### [facility] [address] [address] [address] Tyra Poon Ketones Ql (U) Negative Normal NEGATIVE [facility] Comment on above: Performed By: #### U AMIC #### [facility] [address] [address] [address] Tyra Poon LEUKOCYTES Negative Normal NEGATIVE [facility] Comment on above: Performed By: #### U AMIC #### [facility] [address] [address] [address] Tyra Poon MUCOUS NONE SEEN Normal NONE SEEN [facility] Comment on above: Performed By: #### U AMIC #### [facility] [address] [address] [address] Tyra Poon Nitrite Ql (U) Negative Normal NEGATIVE [facility] Comment on above: Performed By: #### U AMIC #### [facility] [address] [address] [address] Tyra Poon pH (U) 6.0 [pH] Normal 5-9 [facility] Comment on above: Performed By: #### U AMIC #### [facility] [address] [address] [address] Tyra Poon RBC 0-2 Normal 0-2 [facility] Comment on above: Performed By: #### U AMIC #### [facility] [address] [address] [address] Tyra Poon SPEC GRAVITY 1.025 Normal 1.005-<=1.[address] [facility] Comment on above: Performed By: #### U AMIC #### [facility] [address] [address] [address] Tyra Poon UA PROTEIN Negative Normal NEGATIVE/ TRACE [facility] Comment on above: Performed By: #### U AMIC #### [facility] [address] [address] [address] Tyra Poon Urobilinogen Qn (U) 0.2 {[place]'U}/dL Normal 0.2 - 1. [address] [facility] Comment on above: Performed By: #### U AMIC #### [facility] [address] [address] [address] Tyra Poon WBC NONE SEEN Normal NONE SEEN [facility] Comment on above: Performed By: #### U AMIC #### [facility] [address] [place] [address] Dr. Tyra Poon Vital Signs Date Time Vital Sign Value Performing Clinician Facility 04-09-2025 10:040 Body height 160.02 cm [facility] 04-09-2025 10:01-0400 Body mass index (BMI) [Ratio] 52.6 kg/m2 PHYSICIAN NO [facility] 04-09-2025 10:01-0400 Body temperature 98.3 [degF] PHYSICIAN NO [facility] 04-09-2025 10:01-0400 Body weight 134.71 kg [facility] 04-09-2025 10:01-0400 Diastolic blood pressure 90 mm[Hg] PHYSICIAN NO [facility] 04-09-2025 10:01-0400 Heart rate 60 /min [facility]IC[facility] 04-09-2025 10:01-0400 Respiratory rate 20 /min PHYSICIAN NO [facility] 04-09-2025 10:01-0400 SaO2% (BldA) [Mass fraction] 96 % PHYSICIAN NO [facility] 04-09-2025 10:01-0400 Systolic blood pressure 128 mm[Hg] PHYSICIAN NO [facility] 02-12-2025 11:28-0400 Body mass index (BMI) [Ratio] 49.6 kg/m2 Aida Anastacio [employer] Work Phone: [facility] 02-12-2025 11:28-0400 Body temperature 98.1 [degF] Aida Joehholz [employer] Work Phone: [facility] 02-12-2025 11:28-0400 Body weight 127.01 kg Aida Joehlynnettez [employer] Work Phone: [facility] 02-12-2025 11:28-0400 Diastolic blood pressure 84 mm[Hg] Aida Joehholz [employer] Work Phone: [facility] 02-12-2025 11:28-0400 Heart rate 67 /min Aida Aichholz [employer] Work Phone: [facility] 02-12-2025 11:28-0400 Respiratory rate 18 /min Aida Aichholz [employer] Work Phone: [facility] 02-12-2025 11:28-0400 SaO2% (BldA) [Mass fraction] 98 % Aida Joehholz [employer] Work Phone: [facility] 02-12-2025 11:28-0400 Systolic blood pressure 116 mm[Hg] Aida Aichholz [employer] Work Phone: [facility] 09-20-2024 13:03-0400 Body mass index (BMI) [Ratio] 47.9 kg/m2 Phil Acosta DO Work Phone: [facility] 09-20-2024 13:03-0400 Body weight 122.65 kg Phil Acosta DO Work Phone: [facility] 09-20-2024 13:03-0400 Diastolic blood pressure 78 mm[Hg] Phil Acosta DO Work Phone: [facility] 09-20-2024 13:03-0400 Systolic blood pressure 120 mm[Hg] Phil Acosta DO Work Phone: [facility] 08-30-2024 13:41-0500 Body mass index (BMI) [Ratio] 48.61 kg/m2 Aida Anastacio [employer] Work Phone: [facility] 08-30-2024 13:41-0500 Body temperature 98.8 [degF] Aida Waynez [employer] Work Phone: [facility] 08-30-2024 13:41-0500 Body weight 124.47 kg Aida Waynez [employer] Work Phone: [facility] 08-30-2024 13:41-0500 Diastolic blood pressure 84 mm[Hg] Aida Anastacio [employer] Work Phone: [facility] 08-30-2024 13:41-0500 Heart rate 96 /min Aida Waynez [employer] Work Phone: [facility] 08-30-2024 13:41-0500 SaO2% (BldA) [Mass fraction] 97 % Aida Waynez [employer] Work Phone: [facility] 08-30-2024 13:41-0500 Systolic blood pressure 122 mm[Hg] Aida Waynez [employer] Work Phone: [facility] 04-03-2024 15:48-0400 Body height 160 cm Aida Gayholz [employer] Work Phone: [facility] 04-03-2024 15:48-0400 Body mass index (BMI) [Ratio] 52.33 kg/m2 Aida Gayholz [employer] Work Phone: [facility] 04-03-2024 15:48-0400 Body temperature 97.81 [degF] Aida Waynez [employer] Work Phone: [facility] 04-03-2024 15:48-0400 Body weight 133.99 kg Aida Aichholz [employer] Work Phone: [facility] 04-03-2024 15:48-0400 Diastolic blood pressure 86 mm[Hg] Aida Aichholz [employer] Work Phone: [facility] 04-03-2024 15:48-0400 Heart rate 89 /min Aida Aichholz [employer] Work Phone: [facility] 04-03-2024 15:48-0400 Respiratory rate 18 /min Aida Aichholz [employer] Work Phone: [facility] 04-03-2024 15:48-0400 SaO2% (BldA) [Mass fraction] 99 % Aida Aichholz [employer] Work Phone: [facility] 04-03-2024 15:48-0400 Systolic blood pressure 126 mm[Hg] Aida Aichholz [employer] Work Phone: [facility] 02-21-2024 15:02-0400 Body height 160 cm Aida Aichholz [employer] Work Phone: [facility] 02-21-2024 15:02-0400 Body mass index (BMI) [Ratio] 52.08 kg/m2 Aida Aichholz [employer] Work Phone: [facility] 02-21-2024 15:02-0400 Body temperature 98.8 [degF] Aida Aichholz [employer] Work Phone: [facility] 02-21-2024 15:02-0400 Body weight 133.36 kg Aida Aichholz [employer] Work Phone: [facility] 02-21-2024 15:02-0400 Diastolic blood pressure 88 mm[Hg] Aida Aichholz [employer] Work Phone: [facility] 02-21-2024 15:02-0400 Heart rate 79 /min Aida Aichholz [employer] Work Phone: [facility] 02-21-2024 15:02-0400 Respiratory rate 18 /min Aida Chaves [employer] Work Phone: [facility] 02-21-2024 15:02-0400 SaO2% (BldA) [Mass fraction] 99 % Aida Chaves [employer] Work Phone: [facility] 02-21-2024 15:02-0400 Systolic blood pressure 124 mm[Hg] Aida Chaves [employer] Work Phone: [facility] Healthcare Encounters Encounter Date Encounter Type Care Provider Facility Start: 04-09-2025 End: 04-09-2025 ambulatory PHYSICIAN [facility] Work Phone: Start: 04-09-2025 End: 04-09-2025 Patient encounter procedure Aida Chaves [employer] Work Phone: Start: 02-23-2025 End: 02-23-2025 Departed Referred [facility] Co[facility] [address] Work Phone: Start: 02-23-2025 End: 02-23-2025 ambulatory PHYSICIAN [facility] Work Phone: Start: 02-12-2025 End: 02-12-2025 Bamboo flowsheet Aida Chaves [employer] Work Phone: [facility] Start: 02-12-2025 End: 02-12-2025 Bamboo flowsheet Aida Chaves [employer] Work Phone: [facility] Start: 02-12-2025 End: 02-12-2025 Office outpatient visit 25 minutes Aida Chaves [employer] Work Phone: [facility] Comment on above: Anxiety and depressi on (Primary Dx); MARCK (obstructive sleep apnea); Primary hypertension ; Gastroesophageal reflux disease, unspecified whether esophagitis present; Edema, lower extremity; Pre-diabetes; Morbid (severe) obesity due to excess calories ([facility]); Mixed hyperlipidemia ; Primary insomnia Start: 02-12-2025 End: 02-12-2025 ambulatory AIDA GAYHOLZ Not Available Start: 01-22-2025 End: 01-22-2025 Refill Aida Aichholz [employer] Work Phone: [facility] Comment on above: Mixed hyperlipidemia (Primary Dx) Start: 01-20-2025 End: 01-20-2025 Clinisync Result Encounter Aida Anastacio [employer] Work Phone: [facility] Unsolicited Start: 01-20-2025 End: 01-20-2025 Clinisync Result Encounter Aida Anastacio [employer] Work Phone: [facility] Unsolicited Start: 01-19-2025 End: 01-19-2025 Telephone encounter Jef Wooten MD Work Phone: [facility] Start: 11-30-2024 End: 11-30-2024 Refill Aida Aichholz [employer] Work Phone: [facility] Comment on above: Mucocele of mouth (P rimary Dx) Start: 11-02-2024 End: 11-02-2024 Refill Aida Aichholz [employer] Work Phone: [facility] Comment on [...] mammogram Start: 09-20-2024 End: 09-20-2024 ambulatory PHIL SHANE Not Available Start: 09-19-2024 End: 03-18-2025 ambulatory SANDIE PRIETO Not Available Start: 08-30-2024 End: 08-30-2024 Bamboo flowsheet Aida Waynez [employer] Work Phone: [facility] Start: 08-30-2024 End: 08-30-2024 Bamboo flowsheet Aida Aichholz [employer] Work Phone: [facility] Start: 08-30-2024 End: 08-30-2024 ambulatory AIDA JOEHGABRIELLA Not Available Start: 08-30-2024 End: 08-30-2024 Office outpatient visit 25 minutes Aida Aichlynnettez [employer] Work Phone: [facility] Comment on [...] 08-27-2024 End: 08-27-2024 Telephone encounter Aida Chaves [employer] Work Phone: [facility] Start: 08-26-2024 End: 08-27-2024 Refill Aida Aichholz [employer] Work Phone: [facility] Comment on above: Gastro-esophageal re flux disease without esophagitis Start: 07-20-2024 End: 07-20-2024 Refill Aida Aichholz [employer] Work Phone: [facility] Comment on above: Dental infection (Pr imary Dx) Start: 07-03-2024 End: 07-03-2024 Telephone encounter Jef Wooten MD Work Phone: [facility] Start: 06-26-2024 End: 06-26-2024 Refill Aida Aiccarlosz [employer] Work Phone: [facility] Comment on above: Pre-diabetes Start: 06-21-2024 End: 06-21-2024 Refill Aida Anastacio [employer] Work Phone: [facility] Comment on above: Pre-diabetes Start: 04-25-2024 End: 04-25-2024 Refill Aida Anastacio [employer] Work Phone: [facility] Comment on above: Nausea (Primary Dx) Start: 04-03-2024 End: 04-03-2024 Office outpatient visit 25 minutes Aida Chaves [employer] Work Phone: [facility] Comment on above: MARCK (obstructive sle ep apnea) (Primary Dx); Primary hypertension ([facility]); Edema, lower extremity; BMI 50.0-59.9, adult ([facility]); Anxiety and depression ([facility]); Essential (primary) hypertension ([facility]); Essential hypertension ([facility]); Anxiety disorder, unspecified; Anxiety state ([facility]); Gastro-esophageal reflux disease without esophagitis; Insomnia, unspecified Start: 04-03-2024 End: 04-03-2024 Orders Only Aida Chaves [employer] Work Phone: [facility] Comment on above: Pre-diabetes (Primar y Dx) Start: 03-13-2024 End: 03-13-2024 Refill Aida Anastacio [employer] Work Phone: [facility] Comment on above: Pre-diabetes (Primar y Dx); BMI 50.0-59.9, adult ([facility]); Metabolic syndrome Start: 02-25-2024 End: 02-25-2024 Orders [...] Office outpatient visit 15 minutes Aida Chaves [employer] Work Phone: [facility] Comment on above: Anal or rectal pain (Primary Dx); BMI 50.0-59.9, adult ([facility]); Chronic rectal pain Start: 02-21-2024 End: 02-21-2024 ambulatory AIDA CHAVES Not Available Start: 02-21-2024 End: 02-21-2024 Bamboo flowsheet Aida Anastacio [employer] [facility] Work Phone: [facility] Start: 02-21-2024 End: 02-21-2024 Bamboo flowsheet Aida Anastacio [employer] [facility] Work Phone: [facility] Start: 11-27-2022 End: 11-28-2022 ambulatory EVANGELINA AIDA ANASTCAIO Facility:[facility] Start: 11-17-2022 End: 11-18-2022 ambulatory EVANGELINA AIDA ANASTACIO Facility:[facility] Start: 09-12-2022 Encounter for preprocedural laboratory examination DR PHIL SHANE . [facility] Start: 09-11-2022 End: 09-12-2022 ambulatory EVANGELINA AIDA ANASTACIO Facility:[facility] Start: 09-09-2022 End: 09-10-2022 ambulatory EVANGELINA AIDA ANASTACIO Facility:[facility] Start: 09-09-2022 End: 09-10-2022 Encounter for preprocedural laboratory examination EVANGELINA CHAVES Facility:[facility] Start: 09-02-2022 Encounter for preprocedural cardiovascular examination DR PHIL SHANE . [facility] Start: 08-28-2022 End: 08-29-2022 ambulatory EVANGELINA [...] Clinician Start: 01-20-2025 MLR HEMOGLOBIN A1C Aida Gayholz [employer] Work Phone: Start: 08-30-2024 Hemoglobin glycosyla lexy a1c Aida Rashidholz [employer] Work Phone: Start: 02-29-2024 Colonoscopy Aida Joehh olz [employer] Work Phone: Start: 11-15-2023 Mammography Aida Gayh olz [employer] Work Phone: Start: 09-15-2023 Cytp cerv/vag auto t hin layer prep mnl screen Phil Shane DO Work Phone: Plan of Treatment Date Care Activity Detail Author Start: 02-28-2034 Screening for malignant neoplasm of colon [facility] Start: 09-26-2025 End: 09-26-2025 Patient encounter procedure [facility] Start: 06-17-2025 Screening for malignant neoplasm of cervix [facility] Start: 05-04-2025 Influenza vaccination Influenza Vaccine (#1) [facility] Comment on above: Postponed from 03/05/2024 (Patient Does Not Have Time) Start: 03-25-2025 End: 01-22-2026 Alanine aminotransferase [Enzymatic activity/volume] in Serum or Plasma ALT Lab Routine Mixed hyperlipidemia Expected: 03/25/2025 (Approximate), Expires: 01/22/2026 [facility] Comment on above: Expected: 03/25/2025 (Approximate), Expi res: 01/22/2026 Start: 03-25-2025 End: 01-22-2026 Aspartate aminotransferase [Enzymatic activity/volume] in Serum or Plasma AST Lab Routine Mixed hyperlipidemia Expected: 03/25/2025 (Approximate), Expires: 01/22/2026 [facility] Comment on above: Expected: 03/25/2025 (Approximate), Expi res: 01/22/2026 Start: 03-23-2025 End: 01-22-2026 Lipid 1996 panel - Serum or Plasma Lipid panel Lab Routine Mixed hyperlipidemia Expected: 03/23/2025 (Approximate), Expires: 01/22/2026 [facility] Work Phone: Comment on above: Expected: 03/23/2025 (Approximate), Expi res: 01/22/2026 Start: 03-05-2025 Influenza vaccination Influenza Vaccine (#1) [facility] Start: 02-12-2025 End: 02-12-2025 Patient encounter procedure 02/12/2025 11:30 AM EDT Office Visit [facility] [address] [place] [id number] Aida Chaves NP [address] [place] [id number] MARCK (obstructive sleep apnea) (Primary Dx); Primary hypertension ; Gastroesophageal reflux disease, unspecified whether esophagitis present; Edema, lower extremity; Pre-diabetes; Morbid (severe) obesity due to excess calories ([facility]); Mixed hyperlipidemia ; Anxiety and depression [facility] Comment on above: MARCK (obstructive sleep apnea) (Primary D x); Primary hypertension ; Gastroesophageal reflux disease, unspecified whether esophagitis present; Edema, lower extremity; Pre-diabetes; Morbid (severe) obesity due to excess calories ([facility]); Mixed hyperlipidemia ; Anxiety and depression Start: 01-29-2025 End: 01-29-2025 Patient encounter procedure 01/29/2025 4:00 PM EDT Office Visit [facility] [address] [place] [address] Aida Chaves, [place] [address] [place] [address] [facility] Start: 11-14-2024 Screening for malignant neoplasm of breast Mammogram [facility] Start: 09-20-2024 End: 11-20-2025 MG Breast - bilateral Screening Bilateral screening mammogram Imaging Routine Breast cancer screening by mammogram Expected: 09/20/2024 (Approximate), Expires: 11/20/2025 [facility] Work Phone: Comment on above: Expected: 09/20/2024 (Approximate), Expi res: 11/20/2025 Start: 09-20-2024 End: 09-20-2024 Patient encounter procedure 09/20/2024 1:00 PM EDT Office Visit [facility] [address] [phone] Phil Shane, DO [address] [place] [address] [facility] Start: 08-30-2024 End: 08-30-2025 CBC W Auto Differential panel - Blood CBC and differential Lab Routine Gastroesophageal reflux disease, unspecified whether esophagitis present Expected: 08/30/2024 (Approximate), Expires: 08/30/2025 [facility] Work Phone: Comment on above: Expected: 08/30/2024 (Approximate), Expi res: 08/30/2025 Start: 08-30-2024 End: 08-30-2025 Comprehensive metabolic 2000 panel - Serum or Plasma Comprehensive metabolic panel Lab Routine Morbid (severe) obesity due to excess calories (CMS/HCC) Primary hypertension (CMS/HCC) Gastroesophageal reflux disease, unspecified whether esophagitis present Edema, lower extremity Pre-diabetes Metabolic syndrome Mixed hyperlipidemia (CMS/HCC) Expected: 08/30/2024 (Approximate), Expires: 08/30/2025 [facility] Comment on above: Expected: 08/30/2024 (Approximate), Expi res: 08/30/2025 Start: 08-30-2024 End: 08-30-2025 Lipid 1996 panel - Serum or Plasma Lipid panel Lab Routine Pre-diabetes Mixed hyperlipidemia ([facility]/HCC) Expected: 08/30/2024 (Approximate), Expires: 08/30/2025 [facility] Comment on above: Expected: 08/30/2024 (Approximate), Expi res: 08/30/2025 Start: 08-30-2024 End: 08-30-2025 Microalbumin/Creatinine panel in random Urine Microalbumin / creatinine, urine ratio Lab Routine Primary hypertension ([facility]/HCC) Pre-diabetes Expected: 08/30/2024 (Approximate), Expires: 08/30/2025 [facility] Comment on above: Expected: 08/30/2024 (Approximate), Expi res: 08/30/2025 Start: 08-30-2024 End: 08-30-2025 Thyrotropin [Units/volume] in Serum or Plasma TSH Lab Routine Anxiety and depression ([facility]) Expected: 08/30/2024 (Approximate), Expires: 08/30/2025 [facility] Comment on above: Expected: 08/30/2024 (Approximate), Expi res: 08/30/2025 Start: 08-30-2024 End: 08-30-2025 Urinalysis complete panel - Urine Urinalysis with reflex microscopic (clean catch) Lab Routine Primary hypertension ([facility]/HCC) Pre-diabetes Expected: 08/30/2024 (Approximate), Expires: 08/30/2025 [facility] Comment on above: Expected: 08/30/2024 (Approximate), Expi res: 08/30/2025 Start: 04-03-2024 End: 04-03-2024 Patient encounter procedure 04/03/2024 3:40 PM EDT Office Visit [facility] [address] [place] [address] Aida Chaves NP [address] [place] [address] [facility] Start: 04-03-2024 End: 04-03-2025 Basic metabolic 1998 panel - Serum or Plasma Basic metabolic panel Lab Routine Pre-diabetes Expected: 04/03/2024 (Approximate), Expires: 04/03/2025 [facility] Work Phone: Comment on above: Expected: 04/03/2024 (Approximate), Expi res: 04/03/2025 Start: 04-03-2024 End: 04-03-2025 Hemoglobin A1c/Hemoglobin.total in Blood Hemoglobin A1c Lab Routine Pre-diabetes Expected: 04/03/2024 (Approximate), Expires: 04/03/2025 [facility] Comment on above: Expected: 04/03/2024 (Approximate), Expi res: 04/03/2025 Start: 03-05-2024 Influenza vaccination Influenza Vaccine (#1) [facility] Start: 02-29-2024 End: 02-29-2024 Patient encounter procedure 02/29/2024 10:00 AM EDT Procedure Visit [facility] Jonatan Smith, DO [address] [place] [address] [facility] Start: 02-23-2024 End: 02-23-2024 Patient encounter procedure 02/23/2024 11:00 AM EDT Office Visit [facility] [address] [place] [address] [place] [address] Jonatan Smith, DO [address] [place] [address] Arrived [facility] Comment on above: Arrived Start: 02-21-2024 End: 02-21-2024 Patient encounter procedure 02/21/2024 3:00 PM EDT Office Visit [facility] [address] [place] [id number] Aida Chaves, ROCKY [address] [place] [address] Arrived [facility] Comment on above: Arrived Start: 2000 Screening for malignant neoplasm of cervix Pap Smear [facility] Start: 1979 Screening for malignant neoplasm of colon [facility] EKG 12 channel panel [facility] Myoglobin [Mass/volu me] in Serum or Plasma [facility] THIN PREP TIS PAP AN D HR HPV DNA THIN PREP TIS PAP AND HR HPV DNA Pathology and Cytology Routine Well woman exam with routine gynecological exam Ordered: 09/20/2024 [facility] Comment on above: Ordered: 09/20/2024 [facility] Immunizations Immunization Date Immunization Notes Care Provider Fa cili 05-04-2024 influenza, seasonal, injectable Aida Chaves [employer] Work Phone: [facility] 05-04-2024 influenza virus vacc ine, unspecified formulation Jef Wooten MD Work Phone: [facility] 04-27-2023 tetanus and diphther ia toxoids, adsorbed, preservative free, for adult use (5 Lf of tetanus toxoid and 2 Lf of diphtheria toxoid) Aida Chaves [employer] Work Phone: [facility] 04-15-2022 influenza, seasonal, injectable Aida Chaves [employer] Work Phone: [facility] 04-15-2022 influenza virus vacc ine, unspecified formulation Aida Chaves [employer] Work Phone: [facility] 10-15-2012 tetanus and diphther ia toxoids, adsorbed, preservative free, for adult use (5 Lf of tetanus toxoid and 2 Lf of diphtheria toxoid) Aida Chaves [employer] Work Phone: [facility] Payers Date Payer Category Payer [facility] [id number] 2024 Unknown [id number] 2022 Private Health Insurance [employer] [id number] [employer] [id number] 2022-Present [phone] [address] [place] [address] [id number] 2022 Unknown [id number] 2022 Unknown [id number] 1979 Unknown [id number] 2.16.840.1.396700.3.579.2. 593 1979 Unknown [id number] 2.16840.1.132289.3.579.2. 593 1979 Unknown [id number] 2.16840.1.107976.3.579.2. 593 1979 Unknown [id number] 2.16840.1.864897.3.579.2. 593 1979 Unknown [id number] 2.16840.1.144862.3.579.2. 593 1979 Unknown [id number] 2.16.840.1.784683.3.579.2. 593 1979 Unknown [id number] 2.16.840.1.009563.3.579.2. 593 1979 Unknown [id number] 2.16.840.1.249162.3.579.2. 593 1979 Unknown [id number] 2.16.840.1.271600.3.579.2. 593 1979 Unknown [id number] 2.16.840.1.622404.3.579.2. 593 1979 Unknown [id number] 2.16.840.1.828646.3.579.2. 1259 1979 Unknown [id number] 2.16840.1.114555.3.579.2. 1259 1979 Unknown [id number] 2.16.840.1.821637.3.579.2. 1259 1979 Unknown [id number] 2.16.840.1.253666.3.579.2. 1259 1979 Unknown [id number] 2.16.840.1.611800.3.579.2. 1259 1979 Unknown [id number] 2.16840.1.608356.3.579.2. 1259 1979 Unknown [id number] 2.16.840.1.351573.3.579.2. 1259 1959 Private Health Insurance [id number] 1959 Self-pay Unknown [id number] 2.16.840.1.225046.3.579.2. 593 Unknown MMO [id number] Unknown [employer] [id number] Unknown [employer] [place] [id number] Unknown [id number] 2.16.840.1.290112.3.579.2. 531 Social History Date Type Detail Facility Start: [facility] Start: 01-13-2023 [...] at Not on file [facility] How often to you hav e a drink containing alcohol? 2-4 times a month [facility] How many standard dr inks containing alcohol do you have on a typical day? 1 or 2 [facility] Do you feel stress - tense, restless, nervous, or anxious, or unable to sleep at night because your mind is troubled all the time - these days [OSQ] Not at all [facility] Tobacco smoking stat us OKIS Unknown if ever smoked [facility] Work Phone: Sex Female (finding) [facility] Start: 1980 Sex Assigned At Female F [facility] Functional Status Date Assessment Result Facility 02-12-2025 Total score [AUDIT-C] 2 02/13/20 11:11 AM EDT Mychart, Generic [facility] 02-12-2025 How often to you hav e a drink containing alcohol? 2-4 times a month 02/12/2025 11:11 AM EDT Mychart, Generic 2-4 times a month [facility] 02-12-[address] inks containing alcohol do you have on a typical day? 1 or 2 02/12/2025 11:11 AM EDT Mychart, Generic 1 or 2 [facility] 02-12-2025 How often do you hav e 6 or more drinks on 1 occasion? Never 02/12/2025 11:11 AM EDT Mychart, Generic Never [facility] Clinical Notes 09-11-2022 to 02-12-2025 Aida Chaves NP - 02/12/2025 11:30 AM Raúl Chaves NP - 02/12/2025 6:45 AM Raúl Chaves NP - 02/12/2025 6:44 AM Raúl Chaves NP - 02/12/2025 6:43 AM EDTPatient Instructions Note [...] being taken. 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 Hypertension This is a [...] compliance problems. There is no history of CAD/WV, heart failure or PVD. Anxiety Presents for [...] 01/12/22: TC 236 HDL 65 Trigs 106 [id number] HTN (hypertension) 08/02/2023 Insomnia 08/23/2023 Iron deficiency [...] Morbid (severe) obesity due to excess calories ([facility]) Discussed with patient their BMI (actual, verses [...] Morbid (severe) obesity due to excess calories ([facility]-HCC) Discussed with patient their BMI (actual, verses [...] got PAP machine documented in this encounter [facility] 01-19-2025 Telephone encount er Note Sent [facility] 01-19-2025 Miscellaneous Notes Formattin g of this note might be different from the original. Sent Patient would like an order for z pack sent to [facility] [employer] an documented in this encounter [facility] 01-19-2025 Telephone encount er Note Patient would like an order for z pack sent to [facility] [employer]. an [facility] 11-30-2024 History of Presen t illness Narrative Associated Problem(s): Mucocele of mouth New dentures in the last 3 months, has a lump to lower gum line, very tender, increasing jaw pain, and called denist, cannot get in until: 12/12/24 I examined the area, it looks to be more of a mucocele, no purulent drainage noted Will cover with atb documented in this encounter [facility] 11-02-2024 History of Presen t illness Narrative Associated Problem(s): Breast abscess Right breast, recurrent, gets drainage out, no fever, chills, documented in this encounter [facility] 11-02-2024 Telephone encount er Note Warm compress, alert provider if not better or resolved with this [facility] 11-02-2024 Miscellaneous Notes Formattin g of this note might be different from the original. Warm compress, alert provider if not better or resolved with this documented in this encounter [facility] 09-20-2024 History of Presen t illness Narrative [...] aura without status migrainosus, not intractable (CMS/HCC) 06/17/2023 Anxiety and depression ([facility]) 06/29/2023 Edema, lower extremity 07/02/2023 Screening mammogram for breast cancer 08/02/2023 Body mass index (BMI) 50.0-59.9, adult ([facility]) 08/02/2023 HLD (hyperlipidemia) ([facility]) 08/02/2023 HTN (hypertension) ([facility]) 08/02/2023 Abnormal weight gain 08/02/2023 MARCK (obstructive sleep apnea) 08/23/2023 Insomnia 08/23/2023 Tricuspid regurgitation 08/23/2023 Secondary pulmonary arterial hypertension ([facility]) 08/23/2023 Gastroesophageal reflux disease, unspecified whether esophagitis present 08/23/2023 Diarrhea 10/13/2023 Family history of premature CAD 11/04/2023 Pre-diabetes 11/04/2023 Other hemorrhoids 02/09/2024 Anal or rectal pain 02/21/2024 Metabolic syndrome 03/13/2024 Nausea 04/25/2024 Dental infection 07/20/2024 Morbid (severe) obesity due to excess calories ([facility]) 08/30/2024 Resolved Ambulatory Problems Diagnosis Date Noted URI, acute 10/13/2023 Elevated glucose 10/21/2023 Chronic rectal pain 02/21/2024 Past Medical History: Diagnosis Date Allergic rhinitis Chest pain Family history of thyroid disease Hemorrhoids Iron deficiency anemia Lower extremity edema 08/02/2023 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[facility]) 08/23/2023 HISTORY PAST MEDICAL HISTORY SOCIAL HISTORY Past Medical History: Diagnosis Date Allergic rhinitis Anxiety and depression ([facility]) 06/29/2023 Chest pain Chronic migraine without aura without status migrainosus, not intractable ([facility]) 06/17/2023 Edema, lower extremity 07/02/2023 Family history of thyroid disease Gastroesophageal reflux disease, unspecified whether esophagitis present 08/23/2023 Hemorrhoids HLD (hyperlipidemia) ([facility]) 08/02/2023 labs: 01/12/22: TC 236 HDL 65 Trigs 106 [id number] HTN (hypertension) ([facility]) 08/02/2023 Insomnia 08/23/2023 Iron deficiency anemia Lower extremity edema 08/02/2023 MARCK (obstructive sleep apnea) 08/23/2023 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CMS/HCC) 08/23/2023 Tricuspid regurgitation 08/23/2023 Social History Tobacco [...] nursing note reviewed. Exam conducted with a electrical and instrument mechanic present. Vitals: Estimated body mass index is [...] Phil Shane DO documented in this encounter [facility] 08-30-2024 History of Presen t illness Narrative [...] There is no history of kidney disease, CAD/WV, heart failure or left ventricular hypertrophy. Anxiety [...] Diagnosis Date Allergic rhinitis Anxiety and depression ([facility]) 06/29/2023 Chest pain Chronic migraine without aura without status migrainosus, not intractable ([facility]) 06/17/2023 Edema, lower extremity 07/02/2023 Family history of thyroid disease Gastroesophageal reflux disease, unspecified whether esophagitis present 08/23/2023 Hemorrhoids HLD (hyperlipidemia) ([facility]) 08/02/2023 labs: 01/12/22: TC 236 HDL 65 Trigs 106 [id number] HTN (hypertension) ([facility]) 08/02/2023 Insomnia 08/23/2023 Iron deficiency anemia Lower extremity edema 08/02/2023 MARCK (obstructive sleep apnea) 08/23/2023 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[facility]) 08/23/2023 Tricuspid regurgitation 08/23/2023 Past Surgical History: [...] Items Addressed This Visit Anxiety and depression ([facility]) PHQ 9=3 JESUS 7=5 Current meds: xanax [...] panel Body mass index (BMI) 50.0-59.9, adult ([facility]) HLD (hyperlipidemia) ([facility]) Check labs Relevant Orders Comprehensive metabolic panel Lipid panel HTN (hypertension) ([facility]) - Primary Please check blood pressure daily [...] of chronic conditions Associated Problem(s): HLD (hyperlipidemia) ([facility]) Check labs Associated Problem(s): Anxiety and depression ([facility]) PHQ 9=3 JESUS 7=5 Current meds: xanax prn, buproprion, buspar, vraylar, lexapro, and trazodone Associated Problem(s): Pre-diabetes Dose take ozempic for her diabetes, cannot tolerate metformin d/t diarrhea Doing well with weight loss A1c 5.2 Associated Problem(s): Morbid (severe) obesity due to excess calories ([facility]) Discussed with patient their BMI (actual, verses [...] trazodone at HS documented in this encounter [facility] 08-30-2024 Instructions Aida Chaves NP - 08/30/2024 1:40 PM EST Get labs done: fasting Keep up the great work on your weight loss documented in this encounter [facility] 08-27-2024 Telephone encount er Note Needs a fu appt in the next few weeks [place] [facility] 08-27-2024 Miscellaneous Notes Formattin g of this note might be different from the original. Needs a fu appt in the next few weeks [place] documented in this encounter [facility] 07-03-2024 Telephone encount er Note [facility] not have ozempic in stock, can you resend 90 day script [facility] [place]. clm [facility] 07-03-2024 Miscellaneous Notes Formattin g of this note might be different from the original. [facility] not have [facility] in stock, can you resend 90 day script for [facility]pic to [facility] [place]. clm documented in this encounter [facility] 04-03-2024 History of Presen t illness Narrative [...] compliance problems. There is no history of CAD/WV. Diabetes She has type 2 diabetes mellitus. [...] being taken. 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 SUBJECTIVE: MEDICATIONS: Current Outpatient [...] Diagnosis Date Allergic rhinitis Anxiety and depression ([facility]) 06/29/2023 Chest pain Chronic migraine without aura without status migrainosus, not intractable ([facility]) 06/17/2023 Edema, lower extremity 07/02/2023 Family history of thyroid disease Gastroesophageal reflux disease, unspecified whether esophagitis present 08/23/2023 Hemorrhoids HLD (hyperlipidemia) ([facility]) 08/02/2023 labs: 01/12/22: TC 236 HDL 65 Trigs 106 [id number] HTN (hypertension) ([facility]) 08/02/2023 Insomnia 08/23/2023 Iron deficiency anemia Lower extremity edema 08/02/2023 MARCK (obstructive sleep apnea) 08/23/2023 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[facility]) 08/23/2023 Tricuspid regurgitation 08/23/2023 Past Surgical History: [...] 150 MG tablet documented in this encounter [facility] 02-23-2024 History of Presen t illness Narrative [...] Diagnosis Date Allergic rhinitis Anxiety and depression ([facility]) 06/29/2023 Chest pain Chronic migraine without aura without status migrainosus, not intractable ([facility]) 06/17/2023 Edema, lower extremity 07/02/2023 Family history of thyroid disease Gastroesophageal reflux disease, unspecified whether esophagitis present 08/23/2023 Hemorrhoids HLD (hyperlipidemia) ([facility]) 08/02/2023 labs: 01/12/22: TC 236 HDL 65 Trigs 106 [id number] HTN (hypertension) ([facility]) 08/02/2023 Insomnia 08/23/2023 Iron deficiency anemia Lower extremity edema 08/02/2023 MARCK (obstructive sleep apnea) 08/23/2023 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[facility]) 08/23/2023 Tricuspid regurgitation 08/23/2023 Social History Tobacco [...] Leonard Smith DO documented in this encounter [facility] 02-21-2024 History of Presen t illness Narrative [...] Diagnosis Date Allergic rhinitis Anxiety and depression ([facility]) 06/29/2023 Chest pain Chronic migraine without aura without status migrainosus, not intractable ([facility]) 06/17/2023 Edema, lower extremity 07/02/2023 Family history of thyroid disease Gastroesophageal reflux disease, unspecified whether esophagitis present 08/23/2023 Hemorrhoids HLD (hyperlipidemia) ([facility]) 08/02/2023 labs: 01/12/22: TC 236 HDL 65 Trigs 106 [id number] HTN (hypertension) ([facility]) 08/02/2023 Insomnia 08/23/2023 Iron deficiency anemia Lower extremity edema 08/02/2023 MARCK (obstructive sleep apnea) 08/23/2023 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[facility]) 08/23/2023 Tricuspid regurgitation 08/23/2023 Past Surgical History: [...] Chronic rectal pain documented in this encounter [facility] 09-11-2022 Note OP Note OPERATION DATE: 09/11/2022 PROCEDURE: Robotic assisted laparoscopic hysterectomy with bilateral salpingectomy with cystoscopy. PREOPERATIVE DIAGNOSIS: Cervical dysplasia, history of abnormal cervical cells, menorrhagia, dyspareunia, dysmenorrhea. POSTOPERATIVE DIAGNOSIS: Cervical dysplasia, history of abnormal cervical cells, menorrhagia, dyspareunia, dysmenorrhea. ANESTHESIA: General. SURGEON: Phil Shane D.O. SUPERVISOR [employer]: JOSH Gonzales URINE OUTPUT: Yellow and clear. [...] Anesthesia first. Patient tolerated procedure well. [facility] 09-11-2022 Note DISCHARGE SUMMARY NOTE DATE: [...] pain free and no longer on narcotics. [facility] 09-11-2022 Note OPERATIVE NOTE OPERATION DATE: 09/12/2022 PROCEDURE: Robotic assisted laparoscopic hysterectomy with bilateral salpingectomy with cystoscopy. PREOPERATIVE DIAGNOSIS: Cervical dysplasia, history of abnormal cervical cells, menorrhagia, dyspareunia, dysmenorrhea. POSTOPERATIVE DIAGNOSIS: Cervical dysplasia, history of abnormal cervical cells, menorrhagia, dyspareunia, dysmenorrhea. ANESTHESIA: General. SURGEON: Phil Shane D.O. SUPERVISOR [employer]: JOSH Gonzales URINE OUTPUT: Yellow and clear. [...] Anesthesia first. Patient tolerated procedure well. [facility] Evaluation note Diagnosis Anxiety and depression ([facility]/HCC)- Primary Screening mammogram for breast cancer BMI [...] Pre-diabetes Other abnormal glucose BMI 50.0-59.9, adult ([facility]) Primary hypertension (CMS/HCC)- Primary Unspecified essential hypertension Essential (primary) hypertension (CMS/HCC) Unspecified essential hypertension Essential hypertension (CMS/HCC) Unspecified essential hypertension Anxiety disorder, unspecified Anxiety state (CMS/HCC) Anxiety state, unspecified Anxiety and depression (CMS/HCC) Edema, lower extremity Allergic rhinitis, unspecified Allergic rhinitis Allergic rhinitis, cause unspecified Gastro-esophageal reflux disease without esophagitis Insomnia, unspecified MARCK (obstructive sleep apnea) Obstructive sleep apnea (adult) (pediatric) Primary insomnia Persistent disorder of initiating or maintaining sleep Gastroesophageal reflux disease, unspecified whether esophagitis present Lower extremity edema Edema BMI 50.0-59.9, adult (CMS/HCC) Pre-diabetes Other abnormal glucose Anal or rectal pain- Primary BMI 50.0-59.9, adult (CMS/HCC) Chronic rectal pain Pre-diabetes- Primary Other abnormal glucose MARCK (obstructive sleep apnea) Obstructive sleep apnea (adult) (pediatric) Primary hypertension (CMS/HCC) Unspecified essential hypertension Edema, lower extremity BMI 50.0-59.9, adult ([facility]/HCC) Anxiety and depression (CMS/HCC) Essential (primary) hypertension (CMS/HCC) Unspecified essential hypertension Essential hypertension (CMS/HCC) Unspecified essential hypertension Anxiety disorder, unspecified Anxiety state (CMS/HCC) Anxiety state, unspecified Gastro-esophageal reflux disease without esophagitis Insomnia, unspecified Nausea- Primary Nausea alone documented in this encounter [facility] HealthcareEvaluation note* Diagnosis Anal or rectal pain- Primary BMI 50.0-59.9, adult ([facility]) Chronic rectal pain documented in this encounter [facility] HealthcareEvaluation note* Diagnosis Anxiety and depression ([facility] [facility] Primary Screening mammogram for breast cancer BMI 50.0-59.9, adult ([facility]) Lower extremity edema Edema Primary hypertension ([facility]) Unspecified essential hypertension Mixed hyperlipidemia ([facility]) Mixed hyperlipidemia Abnormal weight gain Anxiety and depression ([facility])- Primary Family history of premature CAD Family history of ischemic heart disease Primary hypertension ([facility]) Unspecified essential hypertension MARCK (obstructive sleep apnea) Obstructive sleep apnea (adult) (pediatric) Pre-diabetes Other abnormal glucose BMI 50.0-59.9, adult ([facility]) Primary hypertension ([facility])- Primary Unspecified essential hypertension Essential (primary) hypertension ([facility]) Unspecified essential hypertension Essential hypertension ([facility]) Unspecified essential hypertension Anxiety disorder, unspecified Anxiety state ([facility]) Anxiety state, unspecified Anxiety and depression ([facility]) Edema, lower extremity Allergic rhinitis, unspecified Allergic rhinitis Allergic rhinitis, cause unspecified Gastro-esophageal reflux disease without esophagitis Insomnia, unspecified MARCK (obstructive sleep apnea) Obstructive sleep apnea (adult) (pediatric) Primary insomnia Persistent disorder of initiating or maintaining sleep Gastroesophageal reflux disease, unspecified whether esophagitis present Lower extremity edema Edema BMI 50.0-59.9, adult ([facility]) Pre-diabetes Other abnormal glucose Anal or rectal pain- Primary BMI 50.0-59.9, adult ([facility]) Chronic rectal pain Pre-diabetes- Primary Other abnormal glucose MARCK (obstructive sleep apnea) Obstructive sleep apnea (adult) (pediatric) Primary hypertension ([facility]) Unspecified essential hypertension Edema, lower extremity BMI 50.0-59.9, adult ([facility]) Anxiety and depression ([facility]) Essential (primary) hypertension ([facility]) Unspecified essential hypertension Essential hypertension ([facility]) Unspecified essential hypertension Anxiety disorder, unspecified Anxiety state ([facility]) Anxiety state, unspecified Gastro-esophageal reflux disease without esophagitis Insomnia, unspecified Pre-diabetes Other abnormal glucose documented in this encounter [facility] HealthcareEvaluation note* Diagnosis Encounter for diagnostic colonoscopy due to change in bowel habits- Primary Hemorrhoids, unspecified hemorrhoid type documented in this encounter [facility] HealthcareEvaluation note* Diagnosis Anal or rectal pain- Primary documented in this encounter [facility] HealthcareEvaluation note* Diagnosis Pre-diabetes- Primary Other abnormal glucose BMI 50.0-59.9, adult ([facility]) Metabolic syndrome Dysmetabolic Syndrome X documented in this encounter [facility] HealthcareEvaluation note* Diagnosis Pre-diabetes- Primary Other abnormal glucose documented in this encounter [facility] HealthcareEvaluation note* Diagnosis MARCK (obstructive sleep apnea)- Primary Obstructive sleep apnea (adult) (pediatric) Primary hypertension ([facility]) Unspecified essential hypertension Edema, lower extremity BMI 50.0-59.9, adult ([facility]) Anxiety and depression ([facility]) Essential (primary) hypertension ([facility]) Unspecified essential hypertension Essential hypertension ([facility]) Unspecified essential hypertension Anxiety disorder, unspecified Anxiety state ([facility]) Anxiety state, unspecified Gastro-esophageal reflux disease without esophagitis Insomnia, unspecified documented in this encounter [facility] HealthcareEvaluation note* Diagnosis Anxiety and depression ([facility])- Primary Screening mammogram for breast cancer BMI 50.0-59.9, adult ([facility]) Lower extremity edema Edema Primary hypertension ([facility]) Unspecified essential hypertension Mixed hyperlipidemia ([facility]) Mixed hyperlipidemia Abnormal weight gain Anxiety and depression ([facility])- Primary Family history of premature CAD Family history of ischemic heart disease Primary hypertension ([facility]) Unspecified essential hypertension MARCK (obstructive sleep apnea) Obstructive sleep apnea (adult) (pediatric) Pre-diabetes Other abnormal glucose BMI 50.0-59.9, adult ([facility]) Primary hypertension ([facility])- Primary Unspecified essential hypertension Essential (primary) hypertension ([facility]) Unspecified essential hypertension Essential hypertension ([facility]) Unspecified essential hypertension Anxiety disorder, unspecified Anxiety state ([facility]) Anxiety state, unspecified Anxiety and depression ([facility]) Edema, lower extremity Allergic rhinitis, unspecified Allergic rhinitis Allergic rhinitis, cause unspecified Gastro-esophageal reflux disease without esophagitis Insomnia, unspecified MARCK (obstructive sleep apnea) Obstructive sleep apnea (adult) (pediatric) Primary insomnia Persistent disorder of initiating or maintaining sleep Gastroesophageal reflux disease, unspecified whether esophagitis present Lower extremity edema Edema BMI 50.0-59.9, adult ([facility]) Pre-diabetes Other abnormal glucose Anal or rectal pain- Primary BMI 50.0-59.9, adult ([facility]) Chronic rectal pain Pre-diabetes- Primary Other abnormal glucose MARCK (obstructive sleep apnea) Obstructive sleep apnea (adult) (pediatric) Primary hypertension ([facility]) Unspecified essential hypertension Edema, lower extremity BMI 50.0-59.9, adult ([facility]) Anxiety and depression ([facility]) Essential (primary) hypertension ([facility]) Unspecified essential hypertension Essential hypertension ([facility]) Unspecified essential hypertension Anxiety disorder, unspecified Anxiety state ([facility]) Anxiety state, unspecified Gastro-esophageal reflux disease without esophagitis Insomnia, unspecified Pre-diabetes Other abnormal glucose documented in this encounter [facility] HealthcareEvaluation note* Diagnosis Anxiety and depression ([facility])- Primary Screening mammogram for breast cancer BMI 50.0-59.9, adult ([facility]) Lower extremity edema Edema Primary hypertension ([facility]) Unspecified essential hypertension Mixed hyperlipidemia ([facility]) Mixed hyperlipidemia Abnormal weight gain Anxiety and depression ([facility])- Primary Family history of premature CAD Family history of ischemic heart disease Primary hypertension ([facility]) Unspecified essential hypertension MARCK (obstructive sleep apnea) Obstructive sleep apnea (adult) (pediatric) Pre-diabetes Other abnormal glucose BMI 50.0-59.9, adult ([facility]) Primary hypertension ([facility])- Primary Unspecified essential hypertension Essential (primary) hypertension ([facility]) Unspecified essential hypertension Essential hypertension ([facility]) Unspecified essential hypertension Anxiety disorder, unspecified Anxiety state ([facility]) Anxiety state, unspecified Anxiety and depression ([facility]) Edema, lower extremity Allergic rhinitis, unspecified Allergic rhinitis Allergic rhinitis, cause unspecified Gastro-esophageal reflux disease without esophagitis Insomnia, unspecified MARCK (obstructive sleep apnea) Obstructive sleep apnea (adult) (pediatric) Primary insomnia Persistent disorder of initiating or maintaining sleep Gastroesophageal reflux disease, unspecified whether esophagitis present Lower extremity edema Edema BMI 50.0-59.9, adult ([facility]) Pre-diabetes Other abnormal glucose Anal or rectal pain- Primary BMI 50.0-59.9, adult ([facility]) Chronic rectal pain Pre-diabetes- Primary Other abnormal glucose MARCK (obstructive sleep apnea) Obstructive sleep apnea (adult) (pediatric) Primary hypertension ([facility]) Unspecified essential hypertension Edema, lower extremity BMI 50.0-59.9, adult ([facility]) Anxiety and depression ([facility]) Essential (primary) hypertension ([facility]) Unspecified essential hypertension Essential hypertension ([facility]) Unspecified essential hypertension Anxiety disorder, unspecified Anxiety state ([facility]) Anxiety state, unspecified Gastro-esophageal reflux disease without esophagitis Insomnia, unspecified Dental infection- Primary documented in this encounter [facility] HealthcareEvaluation note* Diagnosis Anxiety and depression ([facility])- Primary Screening mammogram for breast cancer BMI 50.0-59.9, adult ([facility]) Lower extremity edema Edema Primary hypertension ([facility]) Unspecified essential hypertension Mixed hyperlipidemia ([facility]) Mixed hyperlipidemia Abnormal weight gain Anxiety and depression ([facility])- Primary Family history of premature CAD Family history of ischemic heart disease Primary hypertension ([facility]) Unspecified essential hypertension MARCK (obstructive sleep apnea) Obstructive sleep apnea (adult) (pediatric) Pre-diabetes Other abnormal glucose BMI 50.0-59.9, adult ([facility]) Primary hypertension ([facility])- Primary Unspecified essential hypertension Essential (primary) hypertension ([facility]) Unspecified essential hypertension Essential hypertension ([facility]) Unspecified essential hypertension Anxiety disorder, unspecified Anxiety state ([facility]) Anxiety state, unspecified Anxiety and depression ([facility]) Edema, lower extremity Allergic rhinitis, unspecified Allergic rhinitis Allergic rhinitis, cause unspecified Gastro-esophageal reflux disease without esophagitis Insomnia, unspecified MARCK (obstructive sleep apnea) Obstructive sleep apnea (adult) (pediatric) Primary insomnia Persistent disorder of initiating or maintaining sleep Gastroesophageal reflux disease, unspecified whether esophagitis present Lower extremity edema Edema BMI 50.0-59.9, adult ([facility]) Pre-diabetes Other abnormal glucose Anal or rectal pain- Primary BMI 50.0-59.9, adult ([facility]) Chronic rectal pain Pre-diabetes- Primary Other abnormal glucose MARCK (obstructive sleep apnea) Obstructive sleep apnea (adult) (pediatric) Primary hypertension ([facility]) Unspecified essential hypertension Edema, lower extremity BMI 50.0-59.9, adult ([facility]) Anxiety and depression ([facility]) Essential (primary) hypertension ([facility]) Unspecified essential hypertension Essential hypertension ([facility]) Unspecified essential hypertension Anxiety disorder, unspecified Anxiety state ([facility]) Anxiety state, unspecified Gastro-esophageal reflux disease without esophagitis Insomnia, unspecified Gastro-esophageal reflux disease without esophagitis documented in this encounter [facility] HealthcareEvaluation note* Diagnosis Anxiety and depression ([facility])- Primary Screening mammogram for breast cancer BMI 50.0-59.9, adult ([facility]) Lower extremity edema Edema Primary hypertension ([facility]) Unspecified essential hypertension Mixed hyperlipidemia ([facility]) Mixed hyperlipidemia Abnormal weight gain Anxiety and depression ([facility])- Primary Family history of premature CAD Family history of ischemic heart disease Primary hypertension ([facility]) Unspecified essential hypertension MARCK (obstructive sleep apnea) Obstructive sleep apnea (adult) (pediatric) Pre-diabetes Other abnormal glucose BMI 50.0-59.9, adult ([facility]) Primary hypertension ([facility])- Primary Unspecified essential hypertension Essential (primary) hypertension ([facility]) Unspecified essential hypertension Essential hypertension ([facility]) Unspecified essential hypertension Anxiety disorder, unspecified Anxiety state ([facility]) Anxiety state, unspecified Anxiety and depression ([facility]) Edema, lower extremity Allergic rhinitis, unspecified Allergic rhinitis Allergic rhinitis, cause unspecified Gastro-esophageal reflux disease without esophagitis Insomnia, unspecified MARCK (obstructive sleep apnea) Obstructive sleep apnea (adult) (pediatric) Primary insomnia Persistent disorder of initiating or maintaining sleep Gastroesophageal reflux disease, unspecified whether esophagitis present Lower extremity edema Edema BMI 50.0-59.9, adult ([facility]) Pre-diabetes Other abnormal glucose Anal or rectal pain- Primary BMI 50.0-59.9, adult ([facility]) Chronic rectal pain Pre-diabetes- Primary Other abnormal glucose MARCK (obstructive sleep apnea) Obstructive sleep apnea (adult) (pediatric) Primary hypertension ([facility]) Unspecified essential hypertension Edema, lower extremity BMI 50.0-59.9, adult ([facility]) Anxiety and depression ([facility]) Essential (primary) hypertension ([facility]) Unspecified essential hypertension Essential hypertension ([facility]) Unspecified essential hypertension Anxiety disorder, unspecified Anxiety state ([facility]) Anxiety state, unspecified Gastro-esophageal reflux disease without esophagitis Insomnia, unspecified Primary hypertension ([facility])- Primary Unspecified essential hypertension Secondary pulmonary arterial hypertension ([facility]) Morbid (severe) obesity due to excess calories ([facility]) Body mass index (BMI) 50.0-59.9, adult ([facility]) Primary insomnia Persistent disorder of initiating or maintaining sleep MARCK (obstructive sleep apnea) Obstructive sleep apnea (adult) (pediatric) Gastroesophageal reflux disease, unspecified whether esophagitis present Edema, lower extremity Pre-diabetes Other abnormal glucose Anxiety and depression ([facility]) Metabolic syndrome Dysmetabolic Syndrome X Mixed hyperlipidemia ([facility] Mixed hyperlipidemia documented in this encounter [facility] HealthcareEvaluation note* Diagnosis Anxiety and depression ([facility])- Primary Screening mammogram for breast cancer BMI 50.0-59.9, adult ([facility]) Lower extremity edema Edema Primary hypertension ([facility]) Unspecified essential hypertension Mixed hyperlipidemia ([facility] Mixed hyperlipidemia Abnormal weight gain Anxiety and depression ([facility])- Primary Family history of premature CAD Family history of ischemic heart disease Primary hypertension ([facility]) Unspecified essential hypertension MARCK (obstructive sleep apnea) Obstructive sleep apnea (adult) (pediatric) Pre-diabetes Other abnormal glucose BMI 50.0-59.9, adult ([facility]) Primary hypertension ([facility])- Primary Unspecified essential hypertension Essential (primary) hypertension ([facility]) Unspecified essential hypertension Essential hypertension ([facility]) Unspecified essential hypertension Anxiety disorder, unspecified Anxiety state ([facility]) Anxiety state, unspecified Anxiety and depression ([facility]) Edema, lower extremity Allergic rhinitis, unspecified Allergic rhinitis Allergic rhinitis, cause unspecified Gastro-esophageal reflux disease without esophagitis Insomnia, unspecified MARCK (obstructive sleep apnea) Obstructive sleep apnea (adult) (pediatric) Primary insomnia Persistent disorder of initiating or maintaining sleep Gastroesophageal reflux disease, unspecified whether esophagitis present Lower extremity edema Edema BMI 50.0-59.9, adult ([facility]) Pre-diabetes Other abnormal glucose Anal or rectal pain- Primary BMI 50.0-59.9, adult ([facility]) Chronic rectal pain Pre-diabetes- Primary Other abnormal glucose MARCK (obstructive sleep apnea) Obstructive sleep apnea (adult) (pediatric) Primary hypertension ([facility]) Unspecified essential hypertension Edema, lower extremity BMI 50.0-59.9, adult ([facility]) Anxiety and depression ([facility]) Essential (primary) hypertension ([facility]) Unspecified essential hypertension Essential hypertension ([facility]) Unspecified essential hypertension Anxiety disorder, unspecified Anxiety state ([facility]) Anxiety state, unspecified Gastro-esophageal reflux disease without esophagitis Insomnia, unspecified Primary hypertension ([facility])- Primary Unspecified essential hypertension Secondary pulmonary arterial hypertension ([facility]) Morbid (severe) obesity due to excess calories ([facility]) Body mass index (BMI) 50.0-59.9, adult ([facility]) Primary insomnia Persistent disorder of initiating or maintaining sleep MARCK (obstructive sleep apnea) Obstructive sleep apnea (adult) (pediatric) Gastroesophageal reflux disease, unspecified whether esophagitis present Edema, lower extremity Pre-diabetes Other abnormal glucose Anxiety and depression ([facility]) Metabolic syndrome Dysmetabolic Syndrome X Mixed hyperlipidemia ([facility]) Mixed hyperlipidemia Well woman exam with routine gynecological exam Routine gynecological examination Breast cancer screening by mammogram documented in this encounter [facility] HealthcareEvaluation note* Diagnosis Anxiety and depression ([facility])- Primary Screening mammogram for breast cancer BMI 50.0-59.9, adult ([facility]) Lower extremity edema Edema Primary hypertension ([facility]) Unspecified essential hypertension Mixed hyperlipidemia ([facility]) Mixed hyperlipidemia Abnormal weight gain Anxiety and depression ([facility])- Primary Family history of premature CAD Family history of ischemic heart disease Primary hypertension ([facility]) Unspecified essential hypertension MARCK (obstructive sleep apnea) Obstructive sleep apnea (adult) (pediatric) Pre-diabetes Other abnormal glucose BMI 50.0-59.9, adult ([facility]) Primary hypertension ([facility])- Primary Unspecified essential hypertension Essential (primary) hypertension ([facility]) Unspecified essential hypertension Essential hypertension ([facility]) Unspecified essential hypertension Anxiety disorder, unspecified Anxiety state ([facility]) Anxiety state, unspecified Anxiety and depression ([facility]) Edema, lower extremity Allergic rhinitis, unspecified Allergic rhinitis Allergic rhinitis, cause unspecified Gastro-esophageal reflux disease without esophagitis Insomnia, unspecified MARCK (obstructive sleep apnea) Obstructive sleep apnea (adult) (pediatric) Primary insomnia Persistent disorder of initiating or maintaining sleep Gastroesophageal reflux disease, unspecified whether esophagitis present Lower extremity edema Edema BMI 50.0-59.9, adult ([facility]) Pre-diabetes Other abnormal glucose Anal or rectal pain- Primary BMI 50.0-59.9, adult ([facility]) Chronic rectal pain Pre-diabetes- Primary Other abnormal glucose MARCK (obstructive sleep apnea) Obstructive sleep apnea (adult) (pediatric) Primary hypertension ([facility]) Unspecified essential hypertension Edema, lower extremity BMI 50.0-59.9, adult ([facility]) Anxiety and depression ([facility]) Essential (primary) hypertension ([facility]) Unspecified essential hypertension Essential hypertension ([facility]) Unspecified essential hypertension Anxiety disorder, unspecified Anxiety state ([facility]) Anxiety state, unspecified Gastro-esophageal reflux disease without esophagitis Insomnia, unspecified Primary hypertension ([facility])- Primary Unspecified essential hypertension Secondary pulmonary arterial hypertension ([facility]) Morbid (severe) obesity due to excess calories ([facility]) Body mass index (BMI) 50.0-59.9, adult ([facility]) Primary insomnia Persistent disorder of initiating or maintaining sleep MARCK (obstructive sleep apnea) Obstructive sleep apnea (adult) (pediatric) Gastroesophageal reflux disease, unspecified whether esophagitis present Edema, lower extremity Pre-diabetes Other abnormal glucose Anxiety and depression ([facility]) Metabolic syndrome Dysmetabolic Syndrome X Mixed hyperlipidemia ([facility]) Mixed hyperlipidemia Breast abscess- Primary Inflammatory disease of breast documented in this encounter [facility] HealthcareEvaluation note* Diagnosis Anxiety and depression ([facility])- Primary Screening mammogram for breast cancer BMI 50.0-59.9, adult ([facility]) Lower extremity edema Edema Primary hypertension ([facility]) Unspecified essential hypertension Mixed hyperlipidemia ([facility]) Mixed hyperlipidemia Abnormal weight gain Anxiety and depression ([facility])- Primary Family history of premature CAD Family history of ischemic heart disease Primary hypertension ([facility]) Unspecified essential hypertension MARCK (obstructive sleep apnea) Obstructive sleep apnea (adult) (pediatric) Pre-diabetes Other abnormal glucose BMI 50.0-59.9, adult ([facility]) Primary hypertension ([facility])- Primary Unspecified essential hypertension Essential (primary) hypertension ([facility]) Unspecified essential hypertension Essential hypertension ([facility]) Unspecified essential hypertension Anxiety disorder, unspecified Anxiety state ([facility]) Anxiety state, unspecified Anxiety and depression ([facility]) Edema, lower extremity Allergic rhinitis, unspecified Allergic rhinitis Allergic rhinitis, cause unspecified Gastro-esophageal reflux disease without esophagitis Insomnia, unspecified MARCK (obstructive sleep apnea) Obstructive sleep apnea (adult) (pediatric) Primary insomnia Persistent disorder of initiating or maintaining sleep Gastroesophageal reflux disease, unspecified whether esophagitis present Lower extremity edema Edema BMI 50.0-59.9, adult ([facility]) Pre-diabetes Other abnormal glucose Anal or rectal pain- Primary BMI 50.0-59.9, adult ([facility]) Chronic rectal pain Pre-diabetes- Primary Other abnormal glucose MARCK (obstructive sleep apnea) Obstructive sleep apnea (adult) (pediatric) Primary hypertension ([facility]) Unspecified essential hypertension Edema, lower extremity BMI 50.0-59.9, adult ([facility]) Anxiety and depression ([facility]) Essential (primary) hypertension ([facility]) Unspecified essential hypertension Essential hypertension ([facility]) Unspecified essential hypertension Anxiety disorder, unspecified Anxiety state ([facility]) Anxiety state, unspecified Gastro-esophageal reflux disease without esophagitis Insomnia, unspecified Primary hypertension ([facility])- Primary Unspecified essential hypertension Secondary pulmonary arterial hypertension ([facility]) Morbid (severe) obesity due to excess calories ([facility]) Body mass index (BMI) 50.0-59.9, adult ([facility]) Primary insomnia Persistent disorder of initiating or maintaining sleep MARCK (obstructive sleep apnea) Obstructive sleep apnea (adult) (pediatric) Gastroesophageal reflux disease, unspecified whether esophagitis present Edema, lower extremity Pre-diabetes Other abnormal glucose Anxiety and depression ([facility]) Metabolic syndrome Dysmetabolic Syndrome X Mixed hyperlipidemia ([facility]) Mixed hyperlipidemia Breast abscess- Primary Inflammatory disease of breast Mucocele of mouth- Primary Other and unspecified diseases of the oral soft tissues documented in this encounter [facility] HealthcareEvaluation note* Diagnosis Anxiety and depression- Primary Screening mammogram for breast cancer BMI 50.0-59.9, adult ([facility] [place]) Lower extremity edema Edema Primary hypertension Unspecified essential hypertension Mixed hyperlipidemia Mixed hyperlipidemia Abnormal weight gain Anxiety and depression- Primary Family history of premature CAD Family history of ischemic heart disease Primary hypertension Unspecified essential hypertension MARCK (obstructive sleep apnea) Obstructive sleep apnea (adult) (pediatric) Pre-diabetes Other abnormal glucose BMI 50.0-59.9, adult ([facility] [place] [place]) Primary hypertension- Primary Unspecified essential hypertension Essential [...] Lower extremity edema Edema BMI 50.0-59.9, adult ([facility] [place] [place]) Pre-diabetes Other abnormal glucose Anal or rectal pain- Primary BMI 50.0-59.9, adult ([facility] [place] [place]) Chronic rectal pain Pre-diabetes- Primary Other abnormal glucose MARCK (obstructive sleep apnea) Obstructive sleep apnea (adult) (pediatric) Primary hypertension Unspecified essential hypertension Edema, lower extremity BMI 50.0-59.9, adult ([facility] [place] [place]) Anxiety and depression Essential (primary) hypertension Unspecified essential hypertension Essential hypertension Unspecified essential hypertension Anxiety disorder, unspecified Anxiety state Anxiety state, unspecified Gastro-esophageal reflux disease without esophagitis Insomnia, unspecified Primary hypertension- Primary Unspecified essential hypertension Secondary pulmonary arterial hypertension (HCC) Morbid (severe) obesity due to excess calories ([facility] [place] [place]) Body mass index (BMI) 50.0-59.9, adult ([facility] [place] [place]) Primary insomnia Persistent disorder of initiating or [...] oral soft tissues documented in this encounter [facility] HealthcareEvaluation note* Diagnosis Anxiety and depression- Primary Screening mammogram for breast cancer BMI 50.0-59.9, adult ([facility] [place] [place]) Lower extremity edema Edema Primary hypertension Unspecified essential hypertension Mixed hyperlipidemia Mixed hyperlipidemia Abnormal weight gain Anxiety and depression- Primary Family history of premature CAD Family history of ischemic heart disease Primary hypertension Unspecified essential hypertension MARCK (obstructive sleep apnea) Obstructive sleep apnea (adult) (pediatric) Pre-diabetes Other abnormal glucose BMI 50.0-59.9, adult ([facility] [place] [place]) Primary hypertension- Primary Unspecified essential hypertension Essential [...] Lower extremity edema Edema BMI 50.0-59.9, adult ([facility] [place] [place]) Pre-diabetes Other abnormal glucose Anal or rectal pain- Primary BMI 50.0-59.9, adult ([facility] [place] [place]) Chronic rectal pain Pre-diabetes- Primary Other abnormal glucose MARCK (obstructive sleep apnea) Obstructive sleep apnea (adult) (pediatric) Primary hypertension Unspecified essential hypertension Edema, lower extremity BMI 50.0-59.9, adult ([facility] [place] [place]) Anxiety and depression Essential (primary) hypertension Unspecified essential hypertension Essential hypertension Unspecified essential hypertension Anxiety disorder, unspecified Anxiety state Anxiety state, unspecified Gastro-esophageal reflux disease without esophagitis Insomnia, unspecified Primary hypertension- Primary Unspecified essential hypertension Secondary pulmonary arterial hypertension (HCC) Morbid (severe) obesity due to excess calories ([facility] [place] [place]) Body mass index (BMI) 50.0-59.9, adult ([facility] [place] [place]) Primary insomnia Persistent disorder of initiating or [...] Primary Mixed hyperlipidemia documented in this encounter [facility] HealthcareEvaluation note* Diagnosis Anxiety and depression- Primary Screening mammogram for breast cancer BMI 50.0-59.9, adult ([facility] [place] [place]) Lower extremity edema Edema Primary hypertension Unspecified essential hypertension Mixed hyperlipidemia Mixed hyperlipidemia Abnormal weight gain Anxiety and depression- Primary Family history of premature CAD Family history of ischemic heart disease Primary hypertension Unspecified essential hypertension MARCK (obstructive sleep apnea) Obstructive sleep apnea (adult) (pediatric) Pre-diabetes Other abnormal glucose BMI 50.0-59.9, adult ([facility] [place] [place]) Primary hypertension- Primary Unspecified essential hypertension Essential [...] Lower extremity edema Edema BMI 50.0-59.9, adult ([facility] [place]) Pre-diabetes Other abnormal glucose Pre-diabetes- Primary Other abnormal glucose MARCK (obstructive sleep apnea) Obstructive sleep apnea (adult) (pediatric) Primary hypertension Unspecified essential hypertension Edema, lower extremity BMI 50.0-59.9, adult ([facility] [place] [place]) Anxiety and depression Essential (primary) hypertension Unspecified essential hypertension Essential hypertension Unspecified essential hypertension Anxiety disorder, unspecified Anxiety state Anxiety state, unspecified Gastro-esophageal reflux disease without esophagitis Insomnia, unspecified Primary hypertension- Primary Unspecified essential hypertension Secondary pulmonary arterial hypertension (HCC) Morbid (severe) obesity due to excess calories ([facility] [place]) Body mass index (BMI) 50.0-59.9, adult ([facility] [place]) Primary insomnia Persistent disorder of initiating or [...] Morbid (severe) obesity due to excess calories ([facility] [place]) Mixed hyperlipidemia Mixed hyperlipidemia Primary insomnia Persistent disorder of initiating or maintaining sleep documented in this encounter [facility] HealthcareEvaluation noteNo assessment information [facility] Work Phone: Evaluation note* Diagnosis Onset Date Resolution Status Admit Date Bilateral lower extremity edema acut e April 09, 2025 9:54am Chest pain acute April 09 025 9:54am Hypertension, essential acute O ctober 2024 9:54am [facility] Work Phone: Reason for referral (narrative)* Consultation (Routine) - Pending Review Specialty Diagnoses / Procedures Referred By Benedict vera Referred To Contact General Surgery Diagnoses Anal or rectal pain Procedures HI OFFICE/OUTPATIENT NEW HIGH MDM 60 MINUTES Aida Chaves NP [address] [place] [address] Jonatan Smith, [address] [facility] [address] [place] [address] Referral ID Status Reason Start Date Expiration Date Visits Requested Visits Authorized [id number] Pending Review Specialty Services Required 02/21/2024 08/19/2024 1 1 * Consultation (Routine) - Pending Review Specialty Diagnoses / Procedures Referred By Contkoko t Referred To Contact General Surgery Diagnoses Anal or rectal pain Procedures HI OFFICE/OUTPATIENT NEW HIGH MDM 60 MINUTES Aida Chaves, [place] [address] [place] [address] Jonatan Smith, [address] [address] Referral ID Status Reason Start Date Expiration Date Visits Requested Visits Authorized [id number] Pending Review Specialty Services Required 02/21/2024 08/19/2024 1 1 [facility] ElvinRemarianela for referral (narrative)No reason for referral information [facility] Work Phone: Summary Purpose Family History No Family History Records FoundNo Family History Records FoundNo Family History Records Found Advance Directives Advance Directive Response Recorded Date/ Time Advance Directives No March 01, 2025 8:12am Chief Complaint and Reason for Visit Chief Complaint Admit Date fpg pre emp pillars February 23, 2025 12 :39pm Chief Complaint Admit Date fpg pre emp pillars February 23, 2025 12 :39pm leg swelling and chest tightness April 09, 2025 9:54am Reason for Visit Admit Date Bilateral lower extremity edema April 09, 2025 9:54am Chest pain April 09, 2025 9: 54am Hypertension, essential April 09 9:54am Additional Source Comments INFORMATION SOURCE (unrecogn ized section and content) DATE CREATED AUTHOR 12/11/2022 [facility] DATE CREATED AUTHOR AUTHOR'S ORGANIZ ATION 02/13/2025 [facility] EPIC DATE CREATED AUTHOR AUTHOR'S ORGANIZ ATION 03/14/2025 [facility] Care Teams (unrecognized sec tion and content) Wheel And Pinion Inspector Relationship Specialty Start Date End Date Jef Wooten MD [address] [place] [phone] PCP - General Family Medicine 07/28/23 [employer] Pin[employer] Inspector Relationship Specialty Start Date End Date Jef Wooten MD [address] [place] [phone] PCP - General Family Medicine 07/28/23 Wheel And Pinion Inspector Relationship Specialty Start Date End Date Jef Wooten MD [address] [place] [phone] PCP - General Family Medicine 07/28/23 Wheel And Pinion Inspector Relationship Specialty Start Date End Date Jef Wooten MD [address] [place] [phone] PCP - General Family Medicine 07/28/23 Wheel And Pinion Inspector Relationship Specialty Start Date End Date Jef Wooten MD [address] [place] [phone] PCP - General Family Medicine 07/28/23 Wheel And Pinion Inspector Relationship Specialty Start Date End Date Jef Wooten MD [address] [place] [phone] PCP - General Family Medicine 07/28/23 Wheel And Pinion Inspector Relationship Specialty Start Date End Date Jef Wooten MD [address] [place] [address] PCP - General Family Medicine 07/28/23 Wheel And Pinion Inspector Relationship Specialty Start Date End Date Jef Wooten MD [address] [place] [address] PCP - General Family Medicine 07/28/23 Wheel And Pinion Inspector Relationship Specialty Start Date End Date Jef Wooten MD [address] [place] [address] PCP - General Family Medicine 07/28/23 Wheel And Pinion Inspector Relationship Specialty Start Date End Date Jef Wooten MD [address] [place] [address] PCP - General Family Medicine 07/28/23 Wheel And Pinion Inspector Relationship Specialty Start Date End Date Jef Wooten MD [address] [place] [address] PCP - General Family Medicine 07/28/23 Wheel And Pinion Inspector Relationship Specialty Start Date End Date Jef Wooten MD [address] [place] [address] PCP - General Family Medicine 07/28/23 Wheel And Pinion Inspector Relationship Specialty Start Date End Date Jef Wooten MD [address] [place] [address] PCP - General Family Medicine 07/28/23 Wheel And Pinion Inspector Relationship Specialty Start Date End Date Jef Wooten MD [address] [place] [address] PCP - General Family Medicine 07/28/23 Wheel And Pinion Inspector Relationship Specialty Start Date End Date Jef Wooten MD [address] [place] [address] PCP - General Family Medicine 07/28/23 Wheel And Pinion Inspector Relationship Specialty Start Date End Date Jef Wooten MD [address] [place] [address] PCP - General Family Medicine 07/28/23 Wheel And Pinion Inspector Relationship Specialty Start Date End Date Jef Wooten MD [address] [place] [address] PCP - General Family Medicine 07/28/23 Wheel And Pinion Inspector Relationship Specialty Start Date End Date Jef Wooten MD [address] [place] [address] PCP - General Family Medicine 07/28/23 Wheel And Pinion Inspector Relationship Specialty Start Date End Date Jef Wooten MD [address] [place] [address] PCP - General Family Medicine 07/28/23 Wheel And Pinion Inspector Relationship Specialty Start Date End Date Jef Wooten MD [address] [place] [address] PCP - General Family Medicine 07/28/23 Wheel And Pinion Inspector Relationship Specialty Start Date End Date Jef Wooten MD [address] [place] [address] PCP - General Family Medicine 07/28/23 Team Status: Active Member Role Status Dates PHYSICIAN NO FAMILY Primary Care Provider Active Team Status: Inactive Member Role Status Dates PHYSICIAN NO FAMILY Primary Care Provider Active Start: February 23, 2025 End: February 23, 2025 Meir Newell Jr, DO Attending Provider Active S tart: February 23, 2025 End: February 23, 2025 Team Status: Active Member Role Status Dates MANOJ Suarez Primary Care Provider Active Team Status: Inactive Member Role Status Dates MANOJ Suarez Primary Care Provider Active Start: April 09, 2025 End: April 09, 2025 MANOJ Suarez Attending Provider Active Start: April 09, 2025 End: April 09, 2025 Reason for Visit (unrecogniz ed section [...] may be documented in a n alternate sectionGoals may be documented in an alternate section FOR RECORDS PERTAINING TO PATIENTS [...] BE BASED ON THE PRIMARY CLINICAL RECORDS. [employer] provides no warranty or guarantee of the accuracy or completeness of information in this document.
--- NOTE | 2025-04-13 13:52 | CA_ITS ---
Patient Name: CHAPARRITA BOWERS MR#: [id number] : 1980 Exam Date: 04/13/2025 Ordering Doctor: EVANGELINA LIM CNP ECHOCARDIOGRAM REPORT PROCEDURE: CA ECHO DOPPLER COMPLETE INDICATIONS: Chest pain, Edema BLE, HTN, Pulmonary arterial hypotension COMPARISON: None. DESCRIPTION: COMPLETE ECHOCARDIOGRAM Real-time transthoracic echocardiography with 2D, M-mode, spectral and color flow Doppler performed. QUALITY: Technical quality was good. LEFT VENTRICLE: Normal chamber size. Borderline left ventricular hypertrophy. Global left ventricular systolic function is normal without wall motion abnormalities. Calculated left ventricular ejection fraction is 72%. LV EF: DIASTOLIC: Grade 2 diastolic dysfunction ATRIAL SEPTUM: Visually appears intact LEFT ATRIUM: Moderate dilatation. RIGHT ATRIUM: Severe dilatation. RIGHT VENTRICLE: Moderate dilatation. Normal right ventricular systolic function. TRICUSPID VALVE: Normal mobility and thickness. No stenosis with mild to moderate regurgitation. Moderate pulmonary hypertension.RVSP 47mmHg. MITRAL VALVE: Normal mobility and thickness. No evidence of mitral valve stenosis. There is no mitral annular calcification. Trivial mitral regurgitation. AORTIC VALVE: Normal trileaflet appearance. No visible sclerosis. Normal leaflet mobility. No evidence of aortic valve stenosis. No aortic regurgitation. AORTIC ROOT: Normal diameter and appearance. PULMONIC VALVE: Normal thickness and mobility. No stenosis. Trivial regurgitation. PERICARDIUM: No evidence of pericardial effusion. IVC: Collapes with inspirations. Mildly dilated measuring 2.4cm. Consistent with RAP 8 mmHg PLEURA: CONCLUSION: Normal left ventricle cavity size, borderline left ventricle wall thickness Normal left ventricle systolic function without wall motion abnormalities, ejection fraction 72% Grade 2 left ventricular diastolic dysfunction Moderately dilated right ventricle with normal systolic function Moderate pulmonary hypertension, RVSP 47 mmHg Moderately dilated left atrium Severely dilated right atrium Mild to moderate tricuspid regurgitation Adult Echocardiography Procedure Report Left Ventricle LVEDD (3.7 - 5.6 cm): 4.82 cm LVESD (2.2 - 4.0 cm): 3.00 cm LVIVS thickness (0.6 - 1.2 cm): 1.12 cm LVPW thickness (0.5 - 1.0 cm): 0.98 cm e': 0.14 m/s E - e': 6.39 LVOT Max Gradient: 4.88 mm[Hg] LVOT Area (cm2): 1.10 m/s Peak Velocity (LVOT): 1.10 m/s Mean Velocity (LVOT): 0.79 m/s LVOT Diameter 2.13 cm Left Ventricular Ejection Fraction: 71.83 % Left Atrium LA Volume Index (2D A2C): 41.64 ml/m2 Left Atrium Systolic Dimension: 4.28 cm Mitral Valve MV E to A Ratio: 1.09, 1.16 MV Max Gradient: MV Mean Gradient: Mitral Valve A-Wave Peak Velocity: 0.79 m/s Mitral Valve E-Wave Peak Velocity: 0.89 m/s Cardiovascular Orifice Area: Right Ventricle RV Internal Diastolic Dimension: 4.87 cm Aorta AO Root Diam: 3.09 cm Ascending Ao Diam: 2.79 cm Aortic Valve AoV Area (Peak Slava): 2.78 cm2, 2.78 cm2 AoV Area (VTI): 3.30 cm2, 3.21 cm2 Deceleration Stanley: Pressure Half-Time: Peak Velocity(Antegrade Flow): 1.42 m/s, 1.42 m/s Peak Gradient(Antegrade Flow): 8.03 mm[Hg], 8.03 mm[Hg] Mean Velocity(Antegrade Flow): 0.89 m/s, 1.01 m/s Mean Gradient(Antegrade Flow): 3.75 mm[Hg], 4.48 mm[Hg] Velocity Time Integral: 30.71 cm, 29.16 cm Tricuspid Valve Peak Velocity (Regurgitant Flow): 3.22 m/s, 3.11 m/s, 2.69 m/s Peak Velocity: Pulmonic Valve Mean Gradient: 2.46 mm[Hg], 2.32 mm[Hg] Mean Velocity: 0.74 m/s, 0.71 m/s Peak Velocity: 1.05 m/s Peak Gradient: 4.19 mm[Hg], 4.61 mm[Hg] Right Atrium Right Atrium Systolic Pressure: 136.25 ml, 136.25 ml Dictated by: Ashley Medina MD on 04/13/2025 at 17:45 Approved by: Ashley Medina MD on 04/13/2025 at 17:53
== END 2025-04-13 13:45 | disposition home or self-care (01) ==
LOC: CARD 13:45
PROVIDERS: PCP Nurse Practitioner; Visit Provider Nurse Practitioner
DX: R07.9 Chest pain, unspecified (principal); R60.0 Localized edema; Z82.49 Family history of ischemic heart disease and other diseases of the circulatory system; I10 Essential (primary) hypertension; I27.21 Secondary pulmonary arterial hypertension
CPT/HCPCS: 93306

== ENCOUNTER 2025-05-22 07:46 | Outpatient (OUT) | payer OTHER, SELFPAY ==
--- OUTSIDE RECORDS SUMMARY | 2025-05-22 07:50 | XMS_ITS | CCD ---
Author Organization [facility] Care Team Providers Care Room Inspector Name Role Phone AICHHOLZ, TYPE BAR AND SEGMENT ASSEMBLER AIDA Primary Care Unavailable ARIA, NISH Consulting Unavailable ARIA, NISH Attending Unavailable ARIA, NISH Admitting Unavailable DEMARIO ., LU Attending Unavailable BRANDI, DR TIM Dunaway Consulting Unavailable AICHHOLZ, TYPE BAR AND SEGMENT ASSEMBLER AIDA Primary Care Unavailable DEMARIO ., LU Admitting Unavailable DEMARIO ., LU Consulting Unavailable AICHHOLZ, TYPE BAR AND SEGMENT ASSEMBLER AIDA Attending Unavailable AICHHOLZ, TYPE BAR AND SEGMENT ASSEMBLER AIDA Admitting Unavailable AICHHOLZ, TYPE BAR AND SEGMENT ASSEMBLER AIDA Primary Care Unavailable AICHHOLZ, TYPE BAR AND SEGMENT ASSEMBLER AIDA Consulting Unavailable AICHHOLZ, TYPE BAR AND SEGMENT ASSEMBLER AIDA Primary Care Unavailable ACOSTA ., DR OLMEDO Consulting Unavailable ACOSTA ., DR OLMEDO Attending Unavailable ACOSTA ., DR OLMEDO Admitting Unavailable AICHHOLZ, TYPE BAR AND SEGMENT ASSEMBLER AIDA Primary Care Unavailable ACOSTA ., DR OLMEDO Admitting Unavailable ACOSTA ., DR OLMEDO Consulting Unavailable ACOSTA ., DR OLMEDO Attending Unavailable AICHHOLZ, TYPE BAR AND SEGMENT ASSEMBLER AIDA Primary Care Unavailable ACOSTA ., DR OLMEDO Admitting Unavailable ACOSTA ., DR OLMEDO Consulting Unavailable ACOSTA ., DR OLMEDO Attending Unavailable AICHHOLZ, TYPE BAR AND SEGMENT ASSEMBLER AIDA Consulting Unavailable AICHHOLZ, TYPE BAR AND SEGMENT ASSEMBLER AIDA Attending Unavailable AICHHOLZ, TYPE BAR AND SEGMENT ASSEMBLER AIDA Admitting Unavailable AICHHOLZ, TYPE BAR AND SEGMENT ASSEMBLER AIDA Primary Care Unavailable CATYEBDOMINIC, DR TIM Dunaway Consulting Unavailable AICHHOLZ, TYPE BAR AND SEGMENT ASSEMBLER AIDA Consulting Unavailable AICHHOLZ, TYPE BAR AND SEGMENT ASSEMBLER AIDA Attending Unavailable AICHHOLZ, TYPE BAR AND SEGMENT ASSEMBLER AIDA Admitting Unavailable AICHHOLZ, TYPE BAR AND SEGMENT ASSEMBLER AIDA Primary Care Unavailable AICHHOLZ, TYPE BAR AND SEGMENT ASSEMBLER AIDA Attending Unavailable AICHHOLZ, TYPE BAR AND SEGMENT ASSEMBLER AIDA Admitting Unavailable AICHHOLZ, TYPE BAR AND SEGMENT ASSEMBLER AIDA Primary Care Unavailable AICHHOLZ, TYPE BAR AND SEGMENT ASSEMBLER AIDA Consulting Unavailable AICHHOLZ, TYPE BAR AND SEGMENT ASSEMBLER AIDA Attending Unavailable AICHHOLZ, TYPE BAR AND SEGMENT ASSEMBLER AIDA Admitting Unavailable AICHHOLZ, TYPE BAR AND SEGMENT ASSEMBLER AIDA Primary Care Unavailable AICHHOLZ, TYPE BAR AND SEGMENT ASSEMBLER AIDA Consulting Unavailable AICHHOLZ, TYPE BAR AND SEGMENT ASSEMBLER AIDA Primary Care Unavailable ACOSTA ., DR OLMEDO Admitting Unavailable ACOSTA ., DR OLMEDO Consulting Unavailable ACOSTA ., DR OLMEDO Attending Unavailable SANTINO CAZARES Consulting Unavailable DESHAUN BOWENS II Consulting Unavailable NICOLE ESCOTO Consulting Unavailable Jef Wooten MD Primary Care Provider AICHHOLZ, AIDA Attending Unavailable SANDIE PRIETO Attending Unavailable PHIL SHANE Attending Unavailable AICHHOLZ, AIDA Attending Unavailable AICHHOLZ, AIDA Attending Unavailable JONATAN LAIRD Attending Unavailable AICHHOLZ, AIDA Attending Unavailable NO FAMILY, PHYSICIAN Primary Care Provider Unava ilable Reece ABAD, Meir Attending Provider Reece Brown, Meir Attending Unavailable Meir Newell Jr Admitting Unavailable NO FAMILY, PHYSICIAN Primary Care Unavailable Aichholz TRAFFIC SURVEY TECHNICIAN-C, Aida Lenora Primary Care Provider [phone] Joehcielo TRAFFIC SURVEY TECHNICIAN-C, Aida Cooley Attending Provider [phone] Jef Wooten MD Primary Care Provider Allergies Allergy ClassificationReported Allergen(s)Allergy TypeDate of OnsetReaction(s) Facility (1 source)Bee pollenDrug allergy (disorder)[facility] (1 source)PenicillinsDrug allergy (disorder)46-41-1889Wfi [facility] (1 source)Sulfamethoxazole / TrimethoprimDrug Wsbzkxt35-43-8086Zyd [facility] (20 sources)Honey bee venomAllergy to qkgqhjuvb34-68-4078[facility] (20 sources)metroNIDAZOLEDrug Ojmsfzx84-78-1980Ozvxy, GI intoleranceNOIN HealthcareComment on above:GI intolerance (20 sources)Penicillin GDrug Udvahof45-37-5767Yssixag ReactionNOIN Healthcare (20 sources)Sulfonamides (Antibiotic)Drug Swarzss56-48-7648[facility] (1 source)metroNIDAZOLEDrug Iaziica63-58-5663Nbqq[facility]ce[facility] (1 source)PenicillinDrug Onezzzf15-26-3443DljqqkfmkEly[facility] (3 sources)Sulfonamides (Antibiotic)Drug allergy (disorder)04-61-6996Wvplbhh ReactionEly[facility] (3 sources)venom-honey beeDrug allergy (disorder)44-33-2722Awnvbxa Reaction [facility] Medications Current Medications MedicationDrug Class(es)DatesSig (Normalized)Sig (Original)amLODIPine 10 mg oral tablet (20 sources)Dihydropyridine Calcium Channel BlockerStart: 12-29-2023 End: 46-07-9181wxxe 1 tablet by mouth once dailyatorvastatin 10 mg oral tablet (6 sources)HMG-CoA Reductase InhibitorStart: 01-22-2025 End: 90-11-4165ibyn 1 tablet by mouth once daily in the eveningazithromycin 250 mg oral tablet (12 sources)Macrolide AntimicrobialStart: 11-30-2024 End: 89-87-4793pexu 2 tablets by mouth once dailyazithromycin (Zithromax) 250 MG tablet Indications: Mucocele of mouth 2 tablets day #1, 1 tablet day #2-#5 6 tablet 01/19/2025 02/12/2025 Discontinued (Therapy completed)Start: 07-20-2024 End: 44-25-9946uiljfrvziuxn (Zithromax) 250 MG tablet Indications: Dental infection 2 pills day#1, 1 pill day #2-#5 6 tablet 07/20/2024 08/30/2024 Discontinued (Therapy completed)bisacodyl 5 mg delayed release oral tablet (2 sources)Stimulant LaxativeStart: 02-23-2024 End: 93-56-1542vjse 1 tablet by mouth oncebisacodyl (Dulcolax) 5 MG EC tablet Indications: Encounter for diagnostic colonoscopy due to changein bowel habits Take 1 tablet (5 mg) by mouth 1 time for 1 dose Do not crush, chew, or split. Take as detailed on clinic hand out for colonoscopy prep 4 tablet 02/23/2024 02/23/2024 Cshawg89 hr buPROPion hydrochloride 150 mg extended release oral tablet (20 sources)AminoketoneStart: 46-06-0994lhnl 1 tablet by mouth once daily in the morningStart: 12-29-2023 End: 24-07-6595crum 1 tablet by mouth once dailybuPROPion XL (Wellbutrin XL) 150 MG 24 hr tablet Indications: Anxiety and depression Take 1 tablet (150 mg) by mouth Daily 90 tablet 1 08/30/2024 ActivebusPIRone hydrochloride 10 mg oral tablet (20 sources)Start: 02-12-2025 End: 04-03-7218yznc 2 tablets by mouth twice dailyStart: 12-29-2023 End: 28-67-8040rcnl 1 tablet by mouth in the morningbusPIRone (Buspar) 15 MG tablet Indications: Anxiety and depression Take 1 tablet (15 mg) by mouth in the morning and 1 tablet (15 mg) before bedtime. 180 tablet 1 08/30/2024 02/12/2025 Discontinued (Ineffective)cariprazine 1.5 mg oral capsule (20 sources)Atypical AntipsychoticStart: 12-29-2023 End: 02-14-1779ogtq 1 capsule by mouth once dailycarvedilol 6.25 mg oral tablet (20 sources)alpha-Adrenergic Shanna, beta-Adrenergic BlockerStart: 04-19-2025 take 1 tablet by mouth twice daily at mealtimeStart: 12-29-2023 End: 80-01-4491iqzu 1 tablet by mouth twice daily at mealtimeCarvedilol 3.125 mg tablet Discontinued 3.125 MG PO Twice daily 90 1 March 13, 2025 12:00am Oct anusha 2024 1:36pm Primary hypertension Essential (primary) hypertension must administer with ameal/fooddibucaine 0.01 mg/mg rectal ointment (20 sources)Standardized Chemical AllergenStart: 72-16-3237cdrzjkcud (Nupercainal) 1 % ointment Indications: Anal or rectal pain APPLY TO THE AFFECTED AREA(S)topically TWICE DAILY 56 g 2 02/29/2024 ActiveStart: 02-25-2024 dibucaine (Nupercainal) 1 % ointment Indications: Anal or rectal pain Apply topically 2 (two) timesa day 56.7 g 2 02/25/2024 Activedoxycycline hyclate 100 mg oral tablet (1 source)Tetracycline-class DrugStart: 11-02-2024 End: 61-65-6716qftd 1 tablet by mouth in the morningdoxycycline (Vibra-Tabs) 100 MG tablet Indications: Breast abscess Take 1 tablet (100 mg) by mouth in the morning and 1 tablet (100 mg) in the evening. Do all this for 10 days. Take with a full glassof water and do not lie down for at least 30 minutes after. 20 tablet 11/02/2024 11/12/2024 Activeescitalopram 20 mg oral tablet (20 sources)Serotonin Reuptake InhibitorStart: 02-15-2024 End: 95-39-8729etuc 1 tablet by mouth once dailyfurosemide 20 mg oral tablet (20 sources)Loop DiureticStart: 43-32-1034bkys 1 tablet by mouth once daily Start: 12-29-2023 End: 78-87-3514tgng 1 tablet by mouth once dailyfurosemide (Lasix) 20 MG tablet Indications: Edema, lower extremity Take 1 tablet (20 mg) by mouth Daily 90 tablet 1 08/30/2024 ActivehydroCHLOROthiazide 12.5 mg / lisinopril 20 mg oral tablet (20 sources)Thiazide Diuretic, Angiotensin Converting Enzyme InhibitorStart: 03-58-2182owfq 1 tablet by mouth twice dailyStart: 12-29-2023 End: 60-28-1538zbxd 1 tablet by mouth in the morninglisinopril- hydroCHLOROthiazide 20-12.5 MG tablet Indications: Primary hypertension Take 1 tablet bymouth in the morning and 1 tablet before bedtime. 180 tablet 1 02/12/2025 05/13/2025 Activehydrocortisone acetate 25 mg rectal suppository (2 sources)CorticosteroidStart: 02-09-2024 End: 40-20-5604hjqjzliqdjcash (Anusol-HC) 25 MG suppository Indications: Hemorrhoids Insert 1 suppository (25 mg) into the rectum in the morning and 1 suppository (25 mg) before bedtime. Do all this for 7 days. 14 suppository 02/09/2024 02/21/2024 Activeondansetron 4 mg disintegrating oral tablet (1 source)Serotonin-3 Receptor AntagonistStart: 04-25-2024 End: 74-75-3537kpcw 1 tablet by mouth every eight hours as needed for vomiting and nausea and nausea and nauseaondansetron ODT (Zofran-ODT) 4 MG disintegrating tablet Indications: Nausea Take 1 tablet (4 mg) bymouth every 8 (eight) hours if needed for vomiting or nausea for up to 7 days 21 tablet 04/25/2024 05/02/2024 Activepantoprazole 40 mg delayed release oral tablet (20 sources)Proton Pump InhibitorStart: 08-27-2024 End: 37-41-7404vliy 1 tablet by mouth once dailyStart: 12-29-2023 End: 17-59-7266kems 1 tablet by mouth in the morningpantoprazole (ProtoNix) 40 MG EC tablet Indications: Gastro-esophageal reflux disease without esophagitis Take 1 tablet (40 mg) by mouth in the morning and 1 tablet (40 mg) before bedtime. 180 tablet1 04/03/2024 Activepolyethylene glycol 3350 90950 mg powder for oral solution (2 sources)Osmotic LaxativeStart: 02-23-2024 End: 61-83-9935rqcg 17 g by mouth oncepolyethylene glycol, PEG, 3350 (Glycolax) 17 GM/SCOOP powder Indications: Colonoscopy Take 238 g bymouth 1 (one) time for 1 dose Take as detailed from clinic hand out for colonoscopy prep 238 g 02/2202/23/2024 ActiveSemaglutide (OZEMPIC, 0.25 OR 0.5 MG/DOSE, SC) (4 sources) End: 11-34-2780sskxzq 0.5 mg by subcutaneous injection every weekSemaglutide (OZEMPIC, 0.25 OR 0.5 MG/DOSE, SC) Inject 0.5 mg/mL under the skin 1 (one) time per week 03/13/2024 Discontinued (Reorder)inject 0.5 mg by subcutaneous injection every weekSemaglutide (OZEMPIC, 0.25 OR 0.5 MG/DOSE, SC) Inject 0.5 mg/mL under the skin 1 (one) time per week Activesemaglutide (Ozempic, 1 MG/DOSE,) 4 MG/3ML solution pen-injector (20 sources)Start: 02-12-2025 End: 03-75-0101jzibqhmobsg (Ozempic, 1 MG/DOSE,) 4 MG/3ML solution pen-injector Indications: Pre-diabetes Inject 1mg under the skin every 7 (seven) days 9 mL 1 02/12/2025 05/07/2025 ActiveStart: 08-30-2024 End: 99-53-1854kwcbmztjflc (Ozempic, 1 MG/DOSE,) 4 MG/3ML solution pen-injector Indications: Pre-diabetes Inject 1mg under the skin every 7 (seven) days 9 mL 1 08/30/2024 02/12/2025 Discontinued (Reorder)Start: 76-92-5536dkbpmhwxzum (Ozempic, 1 MG/DOSE,) 4 MG/3ML solution pen-injector Indications: Pre-diabetes Inject 1mg under the skin every 7 (seven) days 9 mL 1 08/30/2024 ActiveStart: 08-30-2024 End: 97-12-1256wvelhhwpnle (Ozempic, 1 MG/DOSE,) 4 MG/3ML solution pen-injector Indications: Pre-diabetes Inject 1mg under the skin every 7 (seven) days 9 mL 1 08/30/2024 11/22/2024 ActiveStart: 07-03-2024 End: 10-39-5059dkpzptrslor (Ozempic, 1 MG/DOSE,) 4 MG/3ML solution pen-injector Indications: Pre-diabetes Inject 1mg under the skin every 7 (seven) days 9 mL 1 07/03/2024 08/30/2024 Discontinued (Reorder)Start: 07-03-2024 End: 59-38-6266tljtkeormnf (Ozempic, 1 MG/DOSE,) 4 MG/3ML solution pen-injector Indications: Pre-diabetes Inject 1mg under the skin every 7 (seven) days 9 mL 1 07/03/2024 09/25/2024 ActiveStart: 06-26-2024 End: 13-95-5228rphzlywnlqr (Ozempic, 1 MG/DOSE,) 4 MG/3ML solution pen-injector Indications: Pre-diabetes Inject 1mg under the skin every 7 (seven) days 9 mL 1 06/26/2024 07/03/2024 Discontinued (Reorder)Start: 06-26-2024 End: 66-66-6877qvsffizuanz (Ozempic, 1 MG/DOSE,) 4 MG/3ML solution pen-injector Indications: Pre-diabetes Inject 1mg under the skin every 7 (seven) days 9 mL 1 06/26/2024 09/18/2024 ActiveStart: 06-21-2024 End: 97-02-8281nargehofxit (Ozempic, 1 MG/DOSE,) 4 MG/3ML solution pen-injector Indications: Pre-diabetes Inject 1mg under the skin every 7 (seven) days 9 mL 1 06/21/2024 06/26/2024 Discontinued (Reorder)Start: 06-21-2024 End: 38-67-2585xlxoezvgfwm (Ozempic, 1 MG/DOSE,) 4 MG/3ML solution pen-injector Indications: Pre-diabetes Inject 1mg under the skin every 7 (seven) days 9 mL 1 06/21/2024 09/13/2024 ActiveStart: 04-03-2024 End: 01-64-1329ulztfevcubp (Ozempic, 1 MG/DOSE,) 4 MG/3ML solution pen-injector Indications: Pre-diabetes Inject 1mg under the skin every 7 (seven) days for 28 days 3 mL 3 04/03/2024 06/21/2024 Discontinued (Reorder)Start: 04-03-2024 End: 84-28-5888asehqasdchy (Ozempic, 1 MG/DOSE,) 4 MG/3ML solution pen-injector Indications: Pre-diabetes Inject 1mg under the skin every 7 (seven) days for 28 days 3 mL 3 04/03/2024 05/01/2024 ActiveSemaglutide,0.25 or 0.5MG/DOS, (Ozempic, 0.25 or 0.5 MG/DOSE,) 2 MG/3ML solution pen-injector (2 sources)Start: 03-13-2024 End: 30-17-3393Pmvaqahhvan,0.25 or 0.5MG/DOS, (Ozempic, 0.25 or 0.5 MG/DOSE,) 2 MG/3ML solution pen-injector Indications: Pre-diabetes , BMI 50.0-59.9, adult (CMS/HCC) , Metabolic syndrome Inject 0.5 mg under the skin 1 (one) time per week for 28 days 3 mL 2 03/13/2024 04/03/2024 Discontinued (Therapy completed) Start: 03-13-2024 End: 71-13-3024Vnsstvpgste,0.25 or 0.5MG/DOS, (Ozempic, 0.25 or 0.5 MG/DOSE,) 2 MG/3ML solution pen-injector Indications: Pre-diabetes , BMI 50.0-59.9, adult (CMS/HCC) , Metabolic syndrome Inject 0.5 mg under the skin 1 (one) time per week for 28 days 3 mL 2 03/13/2024 04/10/2024 Activespironolactone 25 mg oral tablet (1 source)Aldosterone AntagonistStart: 02-85-7895kijb 1 tablet by mouth once dailytraZODone hydrochloride 150 mg oral tablet (20 sources)Serotonin Reuptake InhibitorStart: 71-26-2544xkjk 1 tablet by mouth once daily at bedtimeStart: 12-29-2023 End: 41-22-4779gzdu 2 tablets by mouth at bedtimetraZODone (Desyrel) 150 MG tablet Indications: Primary insomnia Take 2 tablets (300 mg) by mouth atbedtime 180 tablet 1 02/12/2025 05/13/2025 Activeubrogepant 100 mg oral tablet (20 sources)Start: 48-36-6638jmqv 1 tablet by mouth every twenty-four hours as neededStart: 74-75-6109Nvpwlvcjxo (Ubrelvy) 100 MG tablet Indications: Chronic migraine without aura without status migrainosus, not intractable 1 tablet at the onset of migraine AVALOS, may repeat in 2 hours if needed. No more than 2 pills in 24 hours, no more than 4 pills per week 15 tablet 2 06/17/2023 Active Completed/Discontinued Medications MedicationDrug Class(es)DatesSig (Normalized)Sig (Original)acetaminophen 325 mg / HYDROcodone bitartrate 5 mg oral tablet (1 source)Opioid AgonistStart: 09-07-2024 End: 69-84-6539ygby 1 tablet by mouth every six hours for painHYDROcodone- acetaminophen ([place]) 5-325 MG tablet Indications: Postoperative pain Take 1 tablet by mouth every 6 (six) hours if needed for severe pain for up to 5 days 20 tablet 09/07/2024 09/20/2024DiscontinuedALPRAZolam 0.25 mg oral tablet (20 sources)BenzodiazepineStart: 12-29-2023 End: 18-23-8586eudq 1 tablet by mouth once daily as needed for anxietyALPRAZolam (Xanax) 0.25 MG tablet Indications: Anxiety and depression (CMS/HCC) Take 1 tablet (0.25mg) by mouth Daily as needed for anxiety (panic attacks) for up to 10 days 10 tablet 04/03/2024 09/20/2024 Discontinuedmontelukast 10 mg oral tablet (11 sources)Leukotriene Receptor AntagonistStart: 12-29-2023 End: 40-08-3378lqhp 1 tablet by mouth at bedtimemontelukast (Singulair) 10 MG tablet Indications: Allergic rhinitis, unspecified , Allergic rhinitis Take 1 tablet (10 mg) by mouth at bedtime 90 tablet 1 12/29/2023 04/03/2024 Discontinued (Therapy completed)Semaglutide (2 sources)Start: 03-13-2025 End: 92-89-0989hooeea 1 mg by subcutaneous injection every weekSemaglutide (Ozempic) 1 mg/dose (4 mg/3 mL) pen injector Discontinued 1 MG SUBCUT every week 03 05March 13, 2025 12:00am April 09, 2025 10:26am Prediabetes Metabolic syndrome Morbid obesity due to excess calories Obstructive sleep apnea syndrome Prediabetes Metabolic syndrome Morbid (severe)obesity due to excess calories Obstructive sleep apnea (adult) (pediatric)Start: 03-13-2025 End: 27-05-6401ouayos 1 mg by subcutaneous injection every weekSemaglutide (Ozempic) 1 mg/dose (4 mg/3 mL) pen injector Discontinued 1 MG SUBCUT every week March 13, 2025 12:00am April 09, 2025 10:26am Problems Active Problems Problem ClassificationProblemDateDocumented DateEpisodic/ChronicAbdominal pain (5 sources)Pelvic and perineal pain; Translations: [Unspecified abdominal pain] Onset: 29-93-6213SpwxweieLscjybt disorders (20 sources)Mixed anxiety and depressive disorder; Translations: [Anxiety disorder, unspecified]Onset: 900204-84-8419IwvvqufZsdoayiaob and other anemia (2 sources)Anemia; Translations: [Anemia, unspecified]37-98-0560Acmzezwn Disorders of lipid metabolism (20 sources)Hyperlipidemia; Translations: [Hyperlipidemia, unspecified]Onset: 462140-72-3783YsxzsbsYtgvqfijva disorders (20 sources)Gastroesophageal reflux disease; Translations: [Gastro-esophageal reflux disease without esophagitis]Onset: 638281-60-3268GvrqxmjNcjhaxewm hypertension (20 sources)Essential (primary) hypertension; Translations: [Hypertensive disorder]Onset: 27-65-4124GpcyhoyCsjevwma; including migraine (20 sources)Migraine without aura, not refractory ; Translations: [Chronic migraine without aura, not intractable, without status migrainosus]Onset: 908247-78-6808IbgoghkRvcmb valve disorders (20 sources)Rheumatic tricuspid insufficiency; Translations: [Tricuspid valve regurgitation]Onset: 343240-96-5678XcxrmixIzluxdtpcavq diseases of female pelvic organs (1 source)Inflammatory disease of cervix uteri; Translations: [INFLAMMATORY DISEASE CERVIX UTERI]Onset: 11-27-6374GkfcovlwWtdazxsod disorders (6 sources)Excessive and frequent menstruation with regular cycle; Translations: [Dysmenorrhea, unspecified]Onset: 43-61-5188DhhfpagCpylewbdtvdkc mental health disorders (4 sources)Primary insomnia; Translations: [Primary insomnia]13-25-0754Peqpyuh Mood disorders (4 sources)Recurrent major depressive episodes, mild ; Translations: [Major depressive disorder, recurrent, mild]28-87-4068IgdiprrKqjoimttpew chest pain (6 sources)Chest pain, unspecified; Translations: [Chest pain]Onset: 12-01-2022 00-77-1618UsimbpqcLakxq acquired deformities (20 sources)Equinus contracture of the ankle; Translations: [Contracture, left ankle]Onset: 849020-12-9389VoajvcjJuqaq and ill-defined heart disease (1 source)Diastolic dysfunction; Translations: [Other ill-defined heart diseases]43-50-2888EsjtfxqXbukz female genital disorders (1 source)Unspecified dyspareunia; Translations: [UNSPECIFIED DYSPAREUNIA]Onset: 97-61-3654PrsrgziVolyw female genital disorders (1 source)Dysplasia of cervix uteri, unspecified; Translations: [DYSPLASIA CERVIX UTERI UNSPECIFIED]Onset: 32-66-2622AqqvyuzgEzogw female genital disorders (1 source)Other specified noninflammatory disorders of vagina; Translations: [OTH SPEC NONINFLAMMATORY D/O VAGINA]Onset: 88-78-8060EkvbyywoTqkah nutritional; endocrine; and metabolic disorders (1 source)Morbid (severe) obesity due to excess calories; Translations: [MORBID SEVERE OBES D/T EXCESS MISSAEL]Onset: 76-23-3449DankjwxRlbni nutritional; endocrine; and metabolic disorders (1 source)Body mass index (BMI) 40.0-44.9, adult; Translations: [BODY MASS INDEX BMI 40.0-44.9 ADULT]Onset: 98-75-4967AlejmrkRnpxi nutritional; endocrine; and metabolic disorders (20 sources)Body mass index 40+ - severely obese; Translations: [Body mass index (BMI) 50.0-59.9, adult]Onset: 495516-70-6313DilesbiPlhrp nutritional; endocrine; and metabolic disorders (20 sources)Metabolic syndrome X; Translations: [Metabolic syndrome]Onset: 951383-58-6287OxcbiugNqywe nutritional; endocrine; and metabolic disorders (17 sources)Obesity caused by energy imbalance; Translations: [Morbid (severe) obesity due to excess calories]Onset: 331512-25-0134IzzwxgjOhdgh nutritional; endocrine; and metabolic disorders (4 sources)Morbid obesity; Translations: [Morbid (severe) obesity due to excess calories]18-52-9828NukcruqTbfrk skin disorders (1 source)Changes in skin texture; Translations: [CHANGES IN SKIN TEXTURE]Onset: 51-32-0660HzymsphvPsjjtwrg of female genital organs (1 source)Female genital prolapse, unspecified; Translations: [FEMALE GENITAL PROLAPSE UNSPECIFIED]Onset: 83-84-2166GzpuenkEybtirpdy heart disease (20 sources)Pulmonary arterial hypertension; Translations: [Secondary pulmonary arterial hypertension]Onset: 716360-70-5871YtpsgesIdnhmssu codes; unclassified (4 sources)Obstructive sleep apnea (adult) (pediatric); Translations: [OBSTRUCTIVE SLEEP APNEA]Onset: 37-90-6596HxteftrLwroyaxd codes; unclassified (20 sources)Obstructive sleep apnea syndrome; Translations: [Obstructive sleep apnea (adult) (pediatric)]Onset: 795055-00-2884RdaszkwZovwjhbb codes; unclassified (1 source)Localized edema; Translations: [LOCALIZED EDEMA]Onset: 12-01-2022 EpisodicResidual codes; unclassified (5 sources)Bilateral lower limb edema; Translations: [Localized edema]03-13-2025 Episodic Past or Other Problems Problem ClassificationProblemDateDocumented DateEpisodic/Chronic Administrative/social admission (4 sources)Encounter for pre-employment examination; Translations: [ENCOUNTER FOR PRE-EMPLOYMENT EXAM]Onset: 66-75-8632WrzqfuynSgno and rectal conditions (20 sources)Anorectal pain; Translations: [Other specified diseases of anus and rectum]Onset: 02-21-2024 Resolved: 895320-70-1498BxvwyrraMtgxdgmqd infection; unspecified site (1 source)Personal history of Methicillin resistant Staphylococcus aureus infection; Translations: [PERS HX METHICILLIN RSIST STAPH INF]Onset: 05-04-2022 EpisodicDiabetes mellitus without complication (20 sources)Prediabetes; Translations: [Prediabetes]Onset: 10-21-2023 Resolved: 879518-11-6073ItizhzxlWkzspgla of mouth; excluding dental (10 sources)Mucocele of mouth; Translations: [Other lesions of oral mucosa] Onset: 751092-94-9601WefzxhtcSzaafnrzg of teeth and jaw (17 sources)Infection of tooth; Translations: [Periapical abscess without sinus] Onset: 07-20-2024 Resolved: 395691-40-8042TtrpgnltLzvjaqghlty (20 sources)Hemorrhoids; Translations: [Other hemorrhoids]Onset: 02-09-2024 78-15-2507XidyhchdKbuihverjdvxr and screening for infectious disease (1 source)Encounter for screening for human papillomavirus (HPV); Translations: [ENC SCREENING HUMAN PAPILLOMAVIRUS]Onset: 17-55-8057FlhwobynOzuaqi and vomiting (20 sources)Nausea; Translations: [Nausea]Onset: 118602-74-4876Kkdiamrq Nonmalignant breast conditions (10 sources)Abscess of breast; Translations: [Abscess of the breast and nipple] Onset: 11-02-2024 Resolved: 800785-20-7982CjuktzziDctyc aftercare (1 source)Other half-way (current) drug therapy; Translations: [OTH WIREWORKER CURRENT DRUG THERAPY]Onset: 15-88-9708JmzcuderIsthe female genital disorders (5 sources)Other specified noninflammatory disorders of cervix uteri; Translations: [OTH SPEC NONINFLAMM D/O CERV UTERI]Onset: 06-96-0281AqagjqiiIizuw gastrointestinal disorders (1 source)Diarrhea, unspecified; Translations: [DIARRHEA UNSPECIFIED]Onset: 88-50-6602YkvsaqleCdrap gastrointestinal disorders (20 sources)Constipation; Translations: [Constipation, unspecified]Onset: [id number] gastrointestinal disorders (20 sources)Diarrhea; Translations: [Diarrhea, unspecified]Onset: 10-13-2023 92-64-1268LtvpccgtZaqsb gastrointestinal disorders (2 sources)Patient encounter status; Translations: [Change in bowel habit] 91-37-4146SacixoooKsapk nutritional; endocrine; and metabolic disorders (20 sources)Abnormal weight gain; Translations: [Abnormal weight gain]Onset: 100794-98-0454TlfwtlneJvqka screening for suspected conditions (not mental disorders or infectious disease) (20 sources)Encounter for screening for malignant neoplasm of cervix; Translations: [Patient encounter status]Onset: 47-18-1707DmfytlzeFrtrz upper respiratory infections (20 sources)Acute upper respiratory infection; Translations: [Acute upper respiratory infection, unspecified]Onset: 10-13-2023 Resolved: 730188-61-6807HpqiwrrgIhamsdzi codes; unclassified (1 source)Family history of other endocrine, nutritional and metabolic diseases; Translations: [FAM HX OTH ENDOCRN NUTRIT METAB DZ]Onset: 84-13-0680Ugzdaxql Residual codes; unclassified (20 sources)Edema of lower extremity; Translations: [Localized edema]Onset: 223398-70-4098TygxgmfoDfnvlvww codes; unclassified (20 sources)Insomnia; Translations: [Insomnia, unspecified]Onset: 08-23-2023 72-18-2934OqfofgmyHkwicozm codes; unclassified (20 sources)FH: premature coronary heart disease; Translations: [Family history of ischemic heart disease and other diseases of the circulatory system]Onset: 616080-85-4797Letadexd Results Test NameValueInterpretationReference RangeFacilityBasophils Auto (Bld) [#/Vol] Ordered By: Aida Chaves on 36-87-4734Yvgoxxkns (Bld) [#/Vol]0.1 10 3/uL0.0-0.1 [facility] HospitalBasophils/100 WBC Auto (Bld)Ordered By: Aida Chaves on 29-73-3344Oexbprqrs/100 WBC (Bld)0.9 %0.2-2.0[facility] HospitalEosinophils/100 WBC Auto (Bld)Ordered By: Aida Chaves on 38-11-0908Fyzhivjgwqh/100 WBC (Bld)12.1 %High0.9-7.0[facility] HospitalErythrocyte distribution width Auto (RBC) [Ratio]Ordered By: Aida Chaves on 99-68-9673Jjljxdigtmg distribution width (RBC) [Ratio]12.7 %11.0-15.0 [facility] HospitalGlomerular filtration rate (GFR) estimation in non- AmericanOrdered By: Aida Chaves on 22-32-9558YUJ/1.73 sq M.predicted among non-blacks MDRD (S/P/Bld) [Vol rate/Area]mL/min/{1.73_m2}>=60 mL/min/1.73m 2FMartins Ferry HospitalHematocrit Auto (Bld) [Volume fraction]Ordered By: Aida Chaves on 45-21-6858Azjpgpnjge (Bld) [Volume fraction]33.1 %Low36.0-48.0[facility] HospitalHemoglobin [Mass/volume] in BloodOrdered By: Aida Cahves on 94-92-8189Lrkfhbddbx (Bld) [Mass/Vol]11.0 g/dLLow12.0-16.0[facility] HospitalLaboratory - Chemistry and Chemistry - challengeOrdered By: Aida Chaves on 04-09-2025 Calcium [Mass/Vol]8.7 mg/dL8.5-10.1FMartins Ferry HospitalChloride [Moles/Vol]102 mmol/T82-957DwnhrrhndElyria Memorial HospitalCK [Catalytic activity/Vol]56 U/H76-878CrrxvslscElyria Memorial HospitalCK.MB [Mass/Vol]ng/mL <=3.60[facility] HospitalCO2 [Moles/Vol]30.5 mmol/L21.0-32.0 [facility] HospitalCreatinine [Mass/Vol]0.91 mg/dL0.55-1.02 [facility] HospitalGFR/1.73 sq M.predicted MDRD (S/P/Bld) [Vol rate/Area]mL/min/{1.73_m2}>=60 mL/min/1.73m 2FMartins Ferry Hospital Glucose [Mass/Vol]106 mg/wT31-484YxiehxsopElyria Memorial HospitalNatriuretic peptide B (Bld) [Mass/Vol]413.0 pg/mL<=450.0[facility] Potassium [Moles/Vol]3.7 mmol/L3.5-5.1FUniversity Hospitals Lake West Medical Centerodium [Moles/Vol]140 mmol/E833-072RpjjegpdeElyria Memorial HospitalUrea nitrogen [Mass/Vol]14.0 mg/dL7.0-18.0[facility] HospitalUrea nitrogen/Creatinine [Mass ratio]15.4 mg/mgElyria Memorial Hospital Laboratory - Hematology and Cell countsOrdered By: Aida Chaves on 04-09-2025 Immature granulocytes/100 WBC (Bld)0.5 %0.0-0.5FMartins Ferry Hospital Leukocytes [#/volume] corrected for nucleated erythrocytes in Blood by Automated counOrdered By: Aida Chaves on 28-78-4849BJT corrected for nucl RBC Auto (Bld) [#/Vol]7.6 10 3/uL4.0-11.0[facility] HospitalLymphocytes Auto (Bld) [#/Vol]Ordered By: Aida Chaves on 99-55-7373Nlpkzynajea (Bld) [#/Vol]2.4 10 3/uL1.2-3.8[facility] HospitalLymphocytes/100 WBC Auto (Bld)Ordered By: Aida Chaves on 00-50-6943Pmsjzgthjvb/100 WBC (Bld)31.0 % 20.5-60.0[facility] NorthH Auto (RBC) [Entitic mass]Ordered By: Aida Chaves on 70-78-2326SQU (RBC) [Entitic mass]29.6 pg26.7-34.0[facility] HospitalMCHC Auto (RBC) [Mass/Vol]Ordered By: Aida Chaves on 62-80-7701EHVG (RBC) [Mass/Vol]33.2 g/dL29.9-35.2FMartins Ferry HospitalMCV Auto (RBC) [Entitic vol]Ordered By: Aida Chaves on 77-87-3446QCA (RBC) [Entitic vol]89.2 fL81.0-99.0[facility] HospitalMonocytes Auto (Bld) [#/Vol]Ordered By: Aida Chaves on 31-93-9318Tfgunfhxt (Bld) [#/Vol] 0.5 10 3/uL0.3-0.8[facility] HospitalMonocytes/100 WBC Auto (Bld) Ordered By: Aida Chaves on 53-39-1309Uwpvgegqg/100 WBC (Bld)6.2 %1.7-12.0 [facility] HospitalNeutrophils Auto (Bld) [#/Vol]Ordered By: Aida Chaves on 52-99-4108Cyaiiapkmfx (Bld) [#/Vol]3.7 10 3/uL1.4-6.5FMartins Ferry HospitalNeutrophils/100 WBC Auto (Bld)Ordered By: Aida Chaves on 57-60-6238Xqzeuilptsj/100 WBC (Bld)49.3 %43.0-75.0[facility] HospitalNo Panel InformationOrdered By: Aida Chaves on 18-58-2218Yjyljxkkgfl # (Auto)0.9 10 3/uLHigh0.0-0.7FMartins Ferry HospitalImmature Granulocyte # (Auto)0.04 10 3/uLHigh0.00-0.03[facility] Troponin I High Sensitivity4.3 pg/mL4.0-51.3FMartins Ferry Hospital Comment on above:CUT-OFF POINTS HAVE BEEN ESTABLISHED BASED ON THE FOURTHUNIVERSAL DEFINITION OF MYOCARDIAL INFARCTION. THE UPPERREFERENCE LIMIT (URL) OF TROPONIN, DEFINED THE 99THPERCENTILE OF cTnI DISTRIBUTION IN A REFERENCE POPULATION,HAS BEEN CONFIRMED THE DECISION THRESHOLD FOR MIDIAGNOSIS.99TH PERCENTILE = 51.4 PG/MLNOTE: HIGH-SENSITIVITY TROPONIN ASSAY IS NOT INTENDED TO BEUSED IN ISOLATION BUT SHOULD BE INTERPRETED IN CONJUNCTIONWITH OTHER DIAGNOSTIC AND CLINICAL INFORMATION.Platelet mean volume Auto (Bld) [Entitic vol]Ordered By: Aida Chaves on 16-05-4140Xqgeellv mean volume (Bld) [Entitic vol]9.2 fLLow9.5-13.5FMartins Ferry Hospital Platelets Auto (Bld) [#/Vol]Ordered By: Aida Chaves on 94-28-4878Sbuzeaggz (Bld) [#/Vol]258 10 3/gQ467-863OxiszzutnElyria Memorial HospitalRBC Auto (Bld) [#/Vol]Ordered By: Aida Chaves on 63-70-9082XZC (Bld) [#/Vol]3.71 10 6/uLLow 4.20-5.40[facility] Medical Centererum or plasma anion gap determinationOrdered By: Aida Chaves on 41-23-6259Tbliz gap [Moles/Vol]11.2 mmol/LFUniversity Hospitals Lake West Medical Centererum or plasma myoglobin measurement (mass/volume)Ordered By: Aida Chaves on 40-92-3418Rihhctlqb [Mass/Vol]30 ng/mL [facility] HospitalBasic Metabolic Mello w/Rfx A1Con 02-23-2025 GFR/1.73 sq M.predicted MDRD (S/P/Bld) [Vol rate/Area]mL/min/{1.73_m2}NormalThe [facility] Physician GroupComment on above:Performed By: #### EMP BMP, EBS LIPID #### [facility] [address] [place] [address] USACalcium [Mass/volume] in Serum or PlasmaOrdered By: Meir Newell on 68-26-2937Ueejwzg [Mass/Vol]9.0 mg/dL8.6-10.3FMartins Ferry HospitalComment on above:Performed By: #### EMP BMP, EBS LIPID #### [facility] [address] [place] [address] USACarbon dioxide, total [Moles/volume] in Serum or Plasma Ordered By: Meir Newell on 49-50-5957ZN6 [Moles/Vol]29.3 mmol/L21.0-31.0 [facility] HospitalComment on above:Performed By: #### EMP BMP, EBS LIPID #### [facility] [address] [place] [address] USAChloride [Moles/volume] in Serum or PlasmaOrdered By: Meir Newell on 07-68-2588Mnuexicb [Moles/Vol]101 mmol/L15-126XnpxzfjdsElyria Memorial HospitalComment on above:Performed By: #### EMP BMP, EBS LIPID #### [facility] [address] [place] [address] USACholesterol [Mass/volume] in Serum or PlasmaOrdered By: Meir Newell on 40-97-0023Oqarksusrzg [Mass/Vol]169 mg/dP231-677DfpmhmxwgElyria Memorial HospitalComment on above:Chol less than 200 mg/dl low riskChol 201-239 mg/dl borderline riskChol 240 mg/dl and greater high riskResult Comment: Chol less than 200 mg/dl low risk Chol 201-239 mg/dl borderline risk Chol 240 mg/dl and greater high riskPerformed By: #### EMP BMP, EBS LIPID #### [facility] [address] [place] [address] USACholesterol in HDL [Mass/volume] in Serum or PlasmaOrdered By: Meir Newell on 34-88-4479Rshvrmyfykn in HDL [Mass/Vol]58 mg/dL- [facility] HospitalComment on above:HDL CHOL ATP-III CLASSIFICATION Cardiovascular RiskHDL > or equal to 60 mg/dL LOWHDL < 40 mg/dL HIGHResult Comment: HDL CHOL ATP-III CLASSIFICATION Cardiovascular Risk HDL > or equal to 60 mg/dL LOW HDL < 40 mg/dL HIGHPerformed By: #### EMP BMP, EBS LIPID #### [facility] [address] [place] [address] USACholesterol in LDL Calc [Mass/Vol]Ordered By: Meir Newell on 74-81-5374Rcamjklymgg in LDL [Mass/Vol]96 mg/dL0-100[facility] HospitalComment on above:LDL ATP III CLASSIFICATIONLDL less than 100 mg/dL OptimalLDL 100-129 mg/dL Near or above zqpobrhQTL997-152 mg/dL Borderline highLDL 160-189 mg/dL HighLDL greater than 189 mg/dL Very highCholesterol in VLDL Calc [Mass/Vol]Ordered By: Meir Newell on 70-13-9641Wiszfcrcgak in VLDL [Mass/Vol]15 mg/dLElyria Memorial HospitalCreatinine [Mass/volume] in Serum or PlasmaOrdered By: Meir Newell on 55-70-3541Ulhpxxncox [Mass/Vol]0.82 mg/dL0.60-1.20[facility] HospitalComment on above:Performed By: #### EMP BMP, EBS LIPID #### [facility] [address] [place] [address] USAGlomerular filtration rate [Volume Rate/Area] in Serum, Plasma or Blood by CreatinineOrdered By: Meir Newell on 60-98-6778Syjpktanqi filtration rate [Volume Rate/Area] in Serum, Plasma or Blood by Creatinine> 60.0 mL/MinElyria Memorial HospitalGlucose [Mass/volume] in Serum or Plasma Ordered By: Meir Newell on 04-74-9933Vmiegwy [Mass/Vol]83 mg/qC12-290BkzimwvtvElyria Memorial HospitalComment on above:Performed By: #### GEOFFREY PATEL, EBS LIPID #### [facility] [address] [place] [address] USALipid Profileon 07-37-3508HOP Cholesterol,Scvtmhibrg31 mg/dLNormal0-100The [facility] Physician GroupComment on above:Result Comment: LDL ATP III CLASSIFICATION LDL less than 100 mg/dL Optimal LDL 100-129 mg/dL Near or above optimal LDL 130-159 mg/dL Borderline high LDL 160-189 mg/dL High LDL greater than 189 mg/dL Very highPerformed By: #### GEOFFREY PATEL, EBS LIPID #### [facility] [address] [address] USATriglyceride w/Umzfxj53 mg/dLNormal0-149The [facility] Physician GroupComment on above:Result Comment: TRIG ATP III CLASSIFICATION TRIG less than 150 mg/dL Normal TRIG 150-199 mg/dL Borderline high TRIG 200-500 mg/dL High TRIG greater than 500 mg/dL Very high Standard traceable to the Center for Disease Conrtrol and Prevention (CDC) test method.Performed By: #### GEOFFREY PATEL, EBS LIPID #### [facility] [address] [place] [address] USAVLDL UYQNYIWLCTU23 mg/dLNormalThe [facility] Physician GroupComment on above:Performed By: #### GEOFFREY PATEL, EBS LIPID #### [facility] [address] [place] [address] USANo Panel InformationOrdered By: Meir Newell on 79-89-0613Cydqnldq Creatinine Clearance (ChemN/[facility] HospitalPotassium [Moles/volume] in Serum or PlasmaOrdered By: Meir Newell on 22-43-5650Jzwvdcmgs [Moles/Vol]3.7 mmol/L3.5-5.1FMartins Ferry HospitalComment on above:Performed By: #### GEOFFREY BMP, EBS LIPID #### [facility] [address] [address] USASerum or plasma anion gap determinationOrdered By: Meir Newell on 04-05-2336Kefqd gap [Moles/Vol]10.4 mmol/L6.0-15.0[facility] HospitalComment on above:Performed By: #### EMP BMP, EBS LIPID #### [facility] [address] [address] USASerum or plasma total cholesterol/high density lipoprotein (HDL) cholesterol mass ratOrdered By: Meir Newell on 02-23-2025 Cholesterol.total/Cholesterol in HDL [Mass ratio]2.9 {ratio}<5.0[facility] HospitalComment on above:Result Comment: PERFORMED BY: [place] [address] PATHOLOGIST [employer]IVITIES LEADER DRE SALMON M.D.Performed By: #### GEOFFREY BMP, EBS LIPID #### [place] [id number] USASodium [Moles/volume] in Serum or PlasmaOrdered By: Meir Newell on 80-69-8326Cbgzwm [Moles/Vol]137 mmol/V124-435KcdprqmjsElyria Memorial HospitalComment on above:Performed By: #### GEOFFREY BMP, EBS LIPID #### [facility] [address] [address] USATriglyceride [Mass/volume] in Serum or PlasmaOrdered By: Meir Newell on 84-83-7062Qpurxlgqknco [Mass/Vol]76 mg/dL0-149[facility] HospitalComment on above:TRIG ATP III CLASSIFICATIONTRIG less than 150 mg/dL NormalTRIG 150-199 mg/dL Borderline highTRIG 200-500 mg/dL High TRIG greater than 500 mg/dL Very highStandard traceable to the Center for Disease Conrtrol and Prevention (CDC) test method.Urea nitrogen [Mass/volume] in Serum or PlasmaOrdered By: Meir Newell on 75-41-7233Byyr nitrogen [Mass/Vol] 14 mg/dL7-25[facility] HospitalComment on above:Performed By: #### GEOFFREY BMP, EBS LIPID #### [facility] [address] [address] USAMLR HEMOGLOBIN A1Con 22-72-8661Rnmijqw [Mass/Vol]103 mg/dL [facility] Medical CenterHbA1c (Bld) [Mass fraction]5.2 %4.5 - 6.2 %NOMS HealthcareComment on above:ADA RECOMMENDED LIMIT 4.0 - 6.0 ADA THERAPEUTIC TARGET < 7.0 ACTION SUGGESTED > 7.0 CLINISYNCNOIN YwxecnphneJeQ2l (Bld) [Mass fraction]on 23-26-9736Kddoehrgwpitfq and review of laboratory resultsNormalNOGundersen Boscobel Area Hospital and ClinicsLaboratory - Hematology and Cell countson 65-78-2963NjM2d (Bld) [Mass fraction]5.20 %[facility] TOMOSYNTHESIS SCREENING BIon 76-55-7831[place] [address] Mammography Report Signed Patient: LAVERNE ROCA MR#: [id number] : 1980 Acct:[id number] Age/Sex: 43 / F ADM Date: 11/12/23 Loc: MAMMO Attending Dr: Phil Shane D.O. Ordering Physician: Phil Shane D.O. Results: Date of Service: 11/12/23 Follow Up: Procedure(s): MM tomosynthesis screening BI Accession Number(s): [id number] cc: Aida Chaves TRAFFIC SURVEY TECHNICIAN; Phil Shane D.O. Patient Name: LAVERNE ROCA MR#: [id number] : 1980 Exam Date: 11/12/2023 Ordering Doctor: [...] throat cancer at age 68. LOCATION: [facility] BREAST COMPOSITION: There are scattered areas [...] Dictated By: Bismark Clay M.D. Signed By: 11/15/2350 DD/ TD/TT: Financial Retirement Plan Specialist:KOFIadiologgely, Darwin, - 11/15/2023 [place] [address] Mammography Report Signed Patient: LAVERNE ROCA MR#: [id number] : 1980 Acct:[id number] Age/Sex: 43 / F ADM Date: 11/12/23 Loc: MAMMO Attending Dr: Phil Shane D.O. Ordering Physician: Phil Shane D.O. Results: Date of Service: 11/12/23 Follow Up: Procedure(s): MM tomosynthesis screening BI Accession Number(s): [id number] cc: Aida Chaves TRAFFIC SURVEY TECHNICIAN; Phil Shane D.O. Patient Name: LAVERNE ROCA MR#: [id number] : 1980 Exam Date: 11/12/2023 Ordering Doctor: [...] throat cancer at age 68. LOCATION: [facility] BREAST COMPOSITION: There are scattered areas [...] Dictated By: Bismark Clay M.D. Signed By: 11/15/23949 DD/ 7 TD/TT: Financial Retirement Plan Specialist: AISSATOU [facility] InstituteRadiology Study observation (narrative)[facility] CenterMM TOMOSYNTHESIS SCREENING BIOrdered By: Radiologist Radiology on 93-61-8070LEKZMoberly Regional Medical Center Work Phone: cytology Cervical or vaginal smear or scraping study Ordered By: Adeline Darden on 34-21-0875WEMGMoberly Regional Medical CenterCBC AUTO DIFFon 37-73-8433DOTM #0.1 103/ulNormal0.0-0.1The [facility]'S HospitalComment on above: Performed By: #### DDIM #### [facility] [address] [address] [address] Tyra PoonBasophils/100 WBC (Bld)0.9 %Normal0.2-2.0[facility] Comment on above:Performed By: #### DDIM #### [facility] [address] [address] [address] Tyra Nunn #0.3 103/ulNormal0.0-0.7The [facility]'S HospitalComment on above: Performed By: #### DDIM #### [facility] [address] [address] [address] Tyra Estradaosinophils/100 WBC (Bld)3.9 %Normal0.9-7.0[facility] Comment on above:Performed By: #### DDIM #### [facility] [address] [address] [address] Tyra Estradarythrocyte distribution width (RBC) [Ratio]14.1 %Yhfwic53.0-15.0 [facility] HospitalComment on above:Performed By: #### DDIM #### [facility] [address] [place] [address] Dr. Tyra PoonHematocrit (Bld) [Volume fraction]33.5 %Critically low36.0-48.0 The [facility] HospitalComment on above:Performed By: #### DDIM #### [facility] [address] [address] [address] Tyra PoonHemoglobin (Bld) [Mass/Vol]10.3 g/dLCritically low12.0-16.0The [facility] HospitalComment on above:Performed By: #### DDIM #### [facility] [address] [place] [address] Dr. Tyra Hodgson #0.03 10e3/ulNormal0.00-0.03The [facility]S HospitalComment on above:Performed By: #### DDIM #### [facility] [address] [place] [address] Dr. Tyra Hodgson %0.4 %Normal0.0-0.5The [facility]'S HospitalComment on above: Performed By: #### DDIM #### [facility] [address] [place] [address] Dr. Tyra Rivera #2.3 103/ulNormal1.2-3.8The [facility]S HospitalComment on above:Performed By: #### DDIM #### [facility] [address] [place] [address] Dr. Tyra Souzahocytes/100 WBC (Bld)34.3 %Hbshpp35.5-60.0The [facility]S HospitalComstraith hospital for special surgery on above:Performed By: #### DDIM #### [facility] [address] [place] [address] Dr. Tyra LedezmaUAL DIFF REQNONormalThe [facility]'S HospitalComment on above: Performed By: #### DDIM #### [facility] [address] [place] [address] Dr. Tyra Alvarenga (RBC) [Entitic mass]25.9 pgCritically low26.7-34.0The [facility]S HospitalComment on above:Performed By: #### DDIM #### [facility] [address] [place] [address] Dr. Tyra Campbell (RBC) [Mass/Vol]30.7 g/lFRkkayi30.9-35.2The [facility]S HospitalComment on above:Performed By: #### DDIM #### [facility] [address] [place] [address] Dr. Tyra Francisco (RBC) [Entitic vol]84.4 vKIgdrii40.0-99.0The [facility] HospitalComment on above:Performed By: #### DDIM #### [facility] [address] [place] [address] Dr. Tyra Collins #0.5 103/ulNormal0.3-0.8The Chevak HospitalComment on above:Performed By: #### DDIM #### [facility] [address] [place] [address] Dr. Tyra Herocytes/100 WBC (Bld)7.2 %Normal1.7-12.0The [facility] Comment on above:Performed By: #### DDIM #### [facility] [address] [place] [address] Dr. Tyra Haji #3.6 103/ulNormal1.4-6.5The [facility]S HospitalComment on above:Performed By: #### DDIM #### [facility] [address] [place] [address] Dr. Tyra Cartwrightutrophils/100 WBC (Bld)53.3 %Ooryfh05.0-75.0The [facility]S HospitalComment on above:Performed By: #### DDIM #### [facility] [address] [place] [address] Dr. Tyra Tovarlet mean volume (Bld) [Entitic vol]9.1 fLCritically low 9.5-13.5The [facility]S HospitalComment on above:Performed By: #### DDIM #### [facility] [address] [place] [address] Dr. Tyra PoonPLT325 103/khXzdcru277-454Tjq [facility] HospitalComment on above: Performed By: #### DDIM #### [facility] [address] [place] [address] Dr. Tyra PoonRBC3.97 106/ulCritically low4.20-5.40The [facility] on above:Performed By: #### DDIM #### [facility] [address] [place] [address] Dr. Tyra PoonWBC6.7 103/ulNormal4.0-11.0The [facility] Hospitalment on above: Performed By: #### DDIM #### [facility] [address] [place] [address] Dr. Tyra Fuentes-DIMERon 87-19-7430D-DIMER0.36 mg/L FEUNormal<=0.59The [facility] on above:Performed By: #### DDIM #### [facility] [address] [place] [address] Dr. Tyra Fuentes-DIMER COMMENTSSEE [facility] on above:Result Comment: Increases in D-Dimer concentration observed with thromboembolic events [...] stress, and generalized hospitalization. Performed By: #### DDIM #### [facility] [address] [place] [address] Dr. Tyra EstradaCHOCARDIO M/2D COMPLETEon 28-75-2050BPTXSCEMAN M/2D COMPLETE Patient: LAVERNE ROCA Exam Date: 11/27/2022 : 1980 Gender:F Ordering : EVANGELINA CHAVES CNP Admission #: [id number] Family : Order #: [id number] CLICK HERE TO VIEW EXAM ECHOCARDIOGRAM REPORT [...] by: Hemant White M.D. on 11/29/2022 at 15:33NoMercy Health Urbana HospitalFREE T4on 88-92-1947Gqzb T4 [Mass/Vol]1.00 ng/dLNormal0.76-1.46The [facility] HospitalComment on above:Performed By: #### DDIM #### [facility] [address] [place] [address] Dr. Tyra Rodriguez 14(COMP METB)on 86-67-7850Yasnvrv [Mass/Vol]3.1 g/dL Critically low3.4-5.0The [facility]S HospitalComment on above:Performed By: #### TSH, CMP #### [facility] [address] [place] [address] Dr. Tyra PoonAlbumin/Globulin [Mass ratio]0.8 {ratio}NormalThe [facility]'S HospitalComment on above:Performed By: #### TSH, CMP #### [facility] [address] [address] [address] Tyra Yadav [Catalytic activity/Vol]73 U/ZHpzmgl11-636Equ [facility] HospitalComment on above:Performed By: #### TSH, CMP #### [facility] [address] [place] [address] Dr. Tyra Diaz [Catalytic activity/Vol]17 U/NNhjgwg43-08Xrm [facility] HospitalComment on above:Performed By: #### TSH, CMP #### [facility] [address] [place] [address] Dr. Tyra Davies gap [Moles/Vol]8.5 mmol/LNormalThe [facility]S HospitalComment on above:Performed By: #### TSH, CMP #### [facility] [address] [place] [address] Dr. Tyra PoonAST [Catalytic activity/Vol]12 U/LCritically rjm83-63Rja [facility] HospitalComment on above:Performed By: #### TSH, CMP #### [facility] [address] [place] [address] Dr. Tyra PoonBilirubin [Mass/Vol]0.2 mg/dLNormal0.2-1.0The [facility] Comment on above:Performed By: #### TSH, CMP #### [facility] [address] [place] [address] Dr. Tyra PoonCalcium [Mass/Vol]8.5 mg/dLNormal8.5-10.1The [facility] Comment on above:Performed By: #### TSH, CMP #### [facility] [address] [place] [address] Dr. Tyra PoonChloride [Moles/Vol]101 mmol/VRtknxu16-175Htk [facility] Comment on above:Performed By: #### TSH, CMP #### [facility] [address] [place] [address] Dr. Tyra PoonCO2 [Moles/Vol]32.3 mmol/LCritically high21.0-32.0The [facility]S HospitalComment on above:Performed By: #### TSH, CMP #### [facility] [address] [address] [address] Tyra PoonCreatinine [Mass/Vol]0.95 mg/dLNormal0.55-1.02The [facility]'S HospitalComment on above:Performed By: #### TSH, CMP #### [facility] [address] [place] [address] Dr. Tyra EstradaGFR-AF CHILEAN>60Normal>=60The [facility]'S HospitalComment on above:Performed By: #### TSH, CMP #### [facility] [address] [place] [address] Dr. Tyra EstradaGFR-NON AF CHILEAN>60Normal>=60The [facility]'S HospitalComment on above:Performed By: #### TSH, CMP #### [facility] [address] [place] [address] Dr. Tyra PoonGlobulin (S) [Mass/Vol]4.1 g/dLNormalThe [facility]'S HospitalComment on above:Performed By: #### TSH, CMP #### [facility] [address] [place] [address] Dr. Tyra PoonGlucose [Mass/Vol]105 mg/rAAlwxml13-444Wti [facility] Comment on above:Performed By: #### TSH, CMP #### [facility] [address] [place] [address] Dr. Tyra PoonPotassium [Moles/Vol]3.8 mmol/LNormal3.5-5.1The [facility] Comment on above:Performed By: #### TSH, CMP #### [facility] [address] [place] [address] Dr. Tyra PoonProtein [Mass/Vol]7.2 g/dLNormal6.4-8.2The [facility] Comment on above:Performed By: #### TSH, CMP #### [facility] [address] [place] [address] Dr. Tyra Dodddium [Moles/Vol]138 mmol/APjyrzj587-674Wpw [facility] Comment on above:Performed By: #### TSH, CMP #### [facility] [address] [place] [address] Dr. Tyra PoonUrea nitrogen [Mass/Vol]14.0 mg/dLNormal7.0-18.0The [facility] HospitalComment on above:Performed By: #### TSH, CMP #### [facility] [address] [place] [address] Dr. Tyra Brennan nitrogen/Creatinine [Mass ratio]14.7 mg/mgNormalThe [facility]S HospitalComment on above:Performed By: #### TSH, CMP #### [facility] [address] [place] [address] Dr. Tyra Cruz 83-62-5389IJE0.423 uIU/mLNormal0.358-3.740The [facility]S HospitalComment on above:Performed By: #### TSH, CMP #### [facility] [address] [place] [address] Dr. Tyra Ascencio 63-96-9530Jhrb nitrogen [Mass/Vol]10.0 mg/dLNormal7.0-18.0 The [facility]S HospitalComment on above:Performed By: #### DDIM #### [facility] [address] [place] [address] Dr. Tyra Moon AUTO DIFFon 20-72-1074DAWI #0.0 103/ulNormal0.0-0.1The [facility]S HospitalComment on above:Performed By: #### PREGQNT #### [facility] [address] [place] [address] Dr. Tyra PoonBasophils/100 WBC (Bld)0.1 %Critically low0.2-2.0The [facility]S HospitalComment on above:Performed By: #### PREGQNT #### [facility] [address] [place] [address] Dr. Tyra Nunn #0.0 103/ulNormal0.0-0.7The [facility]S HospitalComment on above: Performed By: #### PREGQNT #### [facility] [address] [place] [address] Dr. Tyra Estradaosinophils/100 WBC (Bld)0.1 %Critically low0.9-7.0The [facility]S HospitalComment on above:Performed By: #### PREGQNT #### [facility] [address] [place] [address] Dr. Tyra Estradarythrocyte distribution width (RBC) [Ratio]14.9 %Umvlcf05.0-15.0 [facility] HospitalComment on above:Performed By: #### PREGQNT #### [facility] [address] [place] [address] Dr. Tyra PoonHematocrit (Bld) [Volume fraction]30.8 %Critically low36.0-48.0 [facility] HospitalComment on above:Performed By: #### PREGQNT #### [facility] [address] [place] [address] Dr. Tyra PoonHemoglobin (Bld) [Mass/Vol]10.1 g/dLCritically low12.0-16.0The [facility] HospitalComment on above:Performed By: #### PREGQNT #### [facility] [address] [place] [address] Dr. Tyra Hodgson #0.14 10e3/ulCritically high0.00-0.03The [facility] Comment on above:Performed By: #### PREGQNT #### [facility] [address] [place] [address] Dr. Tyra Hodgson %0.9 %Critically high0.0-0.5The [facility]S HospitalComment on above:Performed By: #### PREGQNT #### [facility] [address] [place] [address] Dr. Tyra Rivera #2.2 103/ulNormal1.2-3.8The [facility]S HospitalComment on above:Performed By: #### PREGQNT #### [facility] [address] [place] [address] Dr. Tyra Souzahocytes/100 WBC (Bld)14.6 %Critically low20.5-60.0The [facility]S HospitalComment on above:Performed By: #### PREGQNT #### [facility] [address] [place] [address] Dr. Tyra LedezmaUAL DIFF REQNONormalThe [facility]S HospitalComment on above: Performed By: #### PREGQNT #### [facility] [address] [place] [address] Dr. Tyra Campbell (RBC) [Entitic mass]27.3 alVcurps88.7-34.0The [facility]S HospitalComment on above:Performed By: #### PREGQNT #### [facility] [address] [place] [address] Dr. Tyra Campbell (RBC) [Mass/Vol]32.8 g/jWHcofom92.9-35.2The [facility]S HospitalComment on above:Performed By: #### PREGQNT #### [facility] [address] [place] [address] Dr. Tyra Campbell (RBC) [Entitic vol]83.2 iRNbkqhm75.0-99.0The [facility]S HospitalComment on above:Performed By: #### PREGQNT #### [facility] [address] [place] [address] Dr. Tyra Collins #1.0 103/ulCritically high0.3-0.8The [facility] Comment on above:Performed By: #### PREGQNT #### [facility] [address] [place] [address] Dr. Tyra Herocytes/100 WBC (Bld)6.6 %Normal1.7-12.0[facility] Comment on above:Performed By: #### PREGQNT #### [facility] [address] [address] [address] Tyra Haji #11.8 103/ulCritically high1.4-6.5The [facility] Comment on above:Performed By: #### PREGQNT #### [facility] [address] [place] [address] Dr. Tyra Cartwrightutrophils/100 WBC (Bld)77.7 %Critically high43.0-75.0The [facility]S HospitalComment on above:Performed By: #### PREGQNT #### [facility] [address] [place] [address] Dr. Tyra Tovarlet mean volume (Bld) [Entitic vol]9.3 fLCritically low 9.5-13.5The [facility]S HospitalComment on above:Performed By: #### PREGQNT #### [facility] [address] [place] [address] Dr. Tyra PoonPLT282 103/thDjpxfx727-066Cos [facility] HospitalComment on above: Performed By: #### PREGQNT #### [facility] [address] [place] [address] Dr. Tyra PoonRBC3.70 106/ulCritically low4.20-5.40The [facility]S HospitalComment on above:Performed By: #### PREGQNT #### [facility] [address] [place] [address] Dr. Tyra PoonWBC15.2 103/ulCritically high4.0-11.0The [facility]S HospitalComment on above:Performed By: #### PREGQNT #### [facility] [address] [place] [address] Dr. Tyra EstebanSO #0.0 103/ulNormal0.0-0.1The [facility]S HospitalComment on above:Performed By: #### CBC #### [facility] [address] [place] [address] Dr. Tyra Estebansophils/100 WBC (Bld)0.2 %Normal0.2-2.0[facility] Comment on above:Performed By: #### CBC #### [facility] [address] [place] [address] Dr. Tyra Nunn #0.0 103/ulNormal0.0-0.7The [facility]S HospitalComment on above: Performed By: #### CBC #### [facility] [address] [place] [address] Dr. Tyra Estradaosinophils/100 WBC (Bld)0.0 %Critically low0.9-7.0The [facility]S HospitalComment on above:Performed By: #### CBC #### [facility] [address] [place] [address] Dr. Tyra Estradarythrocyte distribution width (RBC) [Ratio]14.6 %Zbwnwk82.0-15.0 The [facility]S HospitalComment on above:Performed By: #### CBC #### [facility] [address] [place] [address] Dr. Tyra PoonHematocrit (Bld) [Volume fraction]34.6 %Critically low36.0-48.0 [facility] HospitalComment on above:Performed By: #### CBC #### [facility] [address] [place] [address] Dr. Tyra PoonHemoglobin (Bld) [Mass/Vol]11.0 g/dLCritically low12.0-16.0The [facility]S HospitalComment on above:Performed By: #### CBC #### [facility] [address] [place] [address] Dr. Tyra Hodgson #0.28 10e3/ulCritically high0.00-0.03The [facility] Comment on above:Performed By: #### CBC #### [facility] [address] [place] [address] Dr. Tyra Hodgson %1.3 %Critically high0.0-0.5The [facility]S HospitalComment on above:Performed By: #### CBC #### [facility] [address] [place] [address] Dr. Tyra Rivera #1.9 103/ulNormal1.2-3.8The [facility]S HospitalComment on above:Performed By: #### CBC #### [facility] [address] [place] [address] Dr. Tyra Chinomphocytes/100 WBC (Bld)9.2 %Critically low20.5-60.0The [facility]S HospitalComment on above:Performed By: #### CBC #### [facility] [address] [place] [address] Dr. Tyra Green DIFF REQNONormalThe [facility]S HospitalComment on above: Performed By: #### CBC #### [facility] [address] [place] [address] Dr. Tyra Campbell (RBC) [Entitic mass]27.0 jgBsfoeu00.7-34.0The [facility]S HospitalComment on above:Performed By: #### CBC #### [facility] [address] [place] [address] Dr. Tyra Campbell (RBC) [Mass/Vol]31.8 g/eRRpgupi66.9-35.2The [facility]S HospitalComment on above:Performed By: #### CBC #### [facility] [address] [place] [address] Dr. Tyra Campbell (RBC) [Entitic vol]84.8 sGRgfnae84.0-99.0The [facility]S HospitalComment on above:Performed By: #### CBC #### [facility] [address] [place] [address] Dr. Tyra Collins #1.2 103/ulCritically high0.3-0.8[facility] Comment on above:Performed By: #### CBC #### [facility] [address] [place] [address] Dr. Tyra Herocytes/100 WBC (Bld)5.8 %Normal1.7-12.0[facility] Comment on above:Performed By: #### CBC #### [facility] [address] [place] [address] Dr. Tyra Haji #17.7 103/ulCritically high1.4-6.5The [facility] Comment on above:Performed By: #### CBC #### [facility] [address] [place] [address] Dr. Tyra Cartwrightutrophils/100 WBC (Bld)83.5 %Critically high43.0-75.0The [facility]S HospitalComment on above:Performed By: #### CBC #### [facility] [address] [place] [address] Dr. Tyra PoonPlatelet mean volume (Bld) [Entitic vol]9.6 fLNormal9.5-13.5The [facility]S HospitalComment on above:Performed By: #### CBC #### [facility] [address] [place] [address] Dr. Tyra PoonPLT367 103/drHnxslh000-567Vsy [facility] HospitalComment on above: Performed By: #### CBC #### [facility] [address] [place] [address] Dr. Tyra PoonRBC4.08 106/ulCritically low4.20-5.40The [facility]S HospitalComment on above:Performed By: #### CBC #### [facility] [address] [place] [address] Dr. Tyra PoonWBC21.2 103/ulCritically high4.0-11.0The [facility]S HospitalComment on above:Performed By: #### CBC #### [facility] [address] [place] [address] Dr. Tyra PoonCREATININEon 23-72-7748Kkhhqrxtta [Mass/Vol]1.08 mg/dLCritically high0.55-1.02The [facility]S HospitalComment on above:Performed By: #### DDIM #### [facility] [address] [place] [address] Dr. Tyra EstradaGFR-AF CHILEAN>60Normal>=60The [facility]S HospitalComment on above:Performed By: #### DDIM #### [facility] [address] [place] [address] Dr. Tyra EstradaGFR-NON AF SSNZCFDM68 mL/min/1.69d5Gtzrcyoyhn low>=60The [facility]S HospitalComment on above:Performed By: #### DDIM #### [facility] [address] [place] [address] Dr. Tyra NicholsC AUTO DIFFon 31-69-3595PXYT #0.1 103/ulNormal0.0-0.1The [facility]S HospitalComment on above:Performed By: #### UAMIC #### [facility] [address] [place] [address] Dr. Tyra PoonBasophils/100 WBC (Bld)0.7 %Normal0.2-2.0[facility] Comment on above:Performed By: #### UAMIC #### [facility] [address] [place] [address] Dr. Tyra Nunn #0.2 103/ulNormal0.0-0.7The [facility]S HospitalComment on above: Performed By: #### UAMIC #### [facility] [address] [place] [address] Dr. Tyra Estradaosinophils/100 WBC (Bld)2.4 %Normal0.9-7.0[facility] Comment on above:Performed By: #### UAMIC #### [facility] [address] [place] [address] Dr. Tyra Estradarythrocyte distribution width (RBC) [Ratio]14.3 %Ccaoal19.0-15.0 [facility] HospitalComment on above:Performed By: #### UAMIC #### [facility] [address] [place] [address] Dr. Tyra PoonHematocrit (Bld) [Volume fraction]33.3 %Critically low36.0-48.0 [facility] HospitalComment on above:Performed By: #### UAMIC #### [facility] [address] [place] [address] Dr. Tyra PoonHemoglobin (Bld) [Mass/Vol]10.8 g/dLCritically low12.0-16.0The [facility]S HospitalComment on above:Performed By: #### UAMIC #### [facility] [address] [place] [address] Dr. Tyra Hodgson #0.05 10e3/ulCritically high0.00-0.03The [facility] Comment on above:Performed By: #### UAMIC #### [facility] [address] [place] [address] Dr. Tyra Hodgson %0.6 %Critically high0.0-0.5The [facility]S HospitalComment on above:Performed By: #### UAMIC #### [facility] [address] [place] [address] Dr. Tyra Rivera #3.0 103/ulNormal1.2-3.8The [facility]S HospitalComment on above:Performed By: #### UAMIC #### [facility] [address] [place] [address] Dr. Tyra Souzahocytes/100 WBC (Bld)33.4 %Xxmmmu15.5-60.0The [facility]S HospitalComment on above:Performed By: #### UAMIC #### [facility] [address] [place] [address] Dr. Tyra Green DIFF REQNONormalThe [facility]'S HospitalComment on above: Performed By: #### UAMIC #### [facility] [address] [place] [address] Dr. Tyra Campbell (RBC) [Entitic mass]27.0 ltLhrdpd23.7-34.0The [facility]S HospitalComment on above:Performed By: #### UAMIC #### [facility] [address] [place] [address] Dr. Tyra Campbell (RBC) [Mass/Vol]32.4 g/dEPermno33.9-35.2The [facility]S HospitalComment on above:Performed By: #### UAMIC #### [facility] [address] [place] [address] Dr. Tyra Campbell (RBC) [Entitic vol]83.3 jFCnvvcb09.0-99.0The [facility]S HospitalComment on above:Performed By: #### UAMIC #### [facility] [address] [place] [address] Dr. Tyra Collins #0.6 103/ulNormal0.3-0.8The [facility]S HospitalComment on above:Performed By: #### UAMIC #### [facility] [address] [place] [address] Dr. Tyra Herocytes/100 WBC (Bld)6.3 %Normal1.7-12.0The [facility] Comment on above:Performed By: #### UAMIC #### [facility] [address] [place] [address] Dr. Tyra Haji #5.0 103/ulNormal1.4-6.5The [facility]S HospitalComment on above:Performed By: #### UAMIC #### [facility] [address] [place] [address] Dr. yTra Cartwrightutrophils/100 WBC (Bld)56.6 %Xvbipv65.0-75.0The [facility]S HospitalComment on above:Performed By: #### UAMIC #### [facility] [address] [place] [address] Dr. Tyra Scott mean volume (Bld) [Entitic vol]9.3 fLCritically low 9.5-13.5The [facility]S HospitalComment on above:Performed By: #### UAMIC #### [facility] [address] [place] [address] Dr. Tyra PoonPLT310 103/ejSecsfm743-229Zmj [facility] HospitalComment on above: Performed By: #### UAMIC #### [facility] [address] [place] [address] Dr. Tyra PoonRBC4.00 106/ulCritically low4.20-5.40The [facility]S HospitalComment on above:Performed By: #### UAMIC #### [facility] [address] [place] [address] Dr. Tyra PoonWBC8.9 103/ulNormal4.0-11.0[facility] HospitalComment on above: Performed By: #### UAMIC #### [facility] [address] [place] [address] Dr. Tyra PoonPRECiro QUANT HCGon 02-20-2977MQZ QUANT<1NormalPike Community Hospital Comment on above:Performed By: #### PREGQNT #### [facility] [address] [place] [address] Dr. Tyra PoonHCG RANGESEE BELOWRegency Hospital CompanyComment on above: Result Comment: 5-50 0.2-1 WEEK 50-500 1-2 WEEKS 100-5,000 2-3 WEEKS 500-10,000 3-4 WEEKS 1,000-50,000 4-5 WEEKS 10,000-100,000 5-6 WEEKS 15,000-200,000 6-8 WEEKS 10,000-100,000 2-3 MONTHSPerformed By: #### PREGQNT #### [facility] [address] [place] [address] Dr. Tyra PoonTYPE AND SCREENon 75-89-9735UFMZ AND SCREENNegativeRegency Hospital CompanyComment on above:Performed By: #### PREGQNT #### [facility] [address] [place] [address] Dr. Tyra Gabriel TB GOLD PLUSon 96-47-9053JjeuqfBLLIR CriteriaComment NormalPike Community HospitalComment on above:Result Comment: QuantiFERON-TB Gold Plus is a qualitative indirect test for M tuberculosis infection (including disease) and is intended for use in conjunction with risk assessment, radiography, and other medical and diagnostic evaluations. The QuantiFERON-TB Gold Plus result is determined by subtracting the Nil value from either TB antigen (Ag) value. The Mitogen tube serves as a control for the test.Performed By: #### QNTTB #### [facility] [address] [place] [address] Dr. Tyra Gabriel IncubationIncubation performed.NormalPike Community HospitalComment on above:Performed By: #### QNTTB #### [facility] [address] [address] [address] Tyra Gabriel Mitogen Value>10.00NormalThUC Medical CenterComment on above:Performed By: #### QNTTB #### [facility] [address] [address] [address] Tyra Gabriel Nil Value0.05 IU/mLNormalPike Community HospitalComment on above:Performed By: #### QNTTB #### [facility] [address] [place] [address] Dr. Tyra Gabriel TB1 Ag Value0.06 IU/mLNAdams County Regional Medical Center Comment on above:Performed By: #### QNTTB #### [facility] [address] [place] [address] Dr. Tyra Gabriel TB2 Ag Value0.07 IU/mLNAdams County Regional Medical Center Comment on above:Performed By: #### QNTTB #### [facility] [address] [place] [address] Dr. Tyra Gabriel-TB Gold PlusNegativeNormalNegativePike Community HospitalComment on above:Result Comment: No response to M tuberculosis antigens detected. Infection with M tuberculosis is unlikely, but high risk individuals should be considered for additional testing (ATS/IDSA/CDC Clinical Practice Guidelines, 2017). The reference range is an Antigen minus Nil result of <0.35 IU/mL. Chemiluminescence immunoassay methodologyPerformed By: #### QNTTB #### [facility] [address] [place] [address] Dr. Tyra Tadeo B SURFACE ANTIBODY, QUANTon [id number] B Surf AB Quant<3.1Critically lowImmunity>9.9[facility] HospitalComstraith hospital for [facility] surgery on above: Result Comment: Status of Immunity Anti-HBs Level Inconsistent with Immunity 0.0 - 9.9 Consistent with Immunity >9.9Performed By: #### HEPBSRF #### [facility] [address] [place] [address] Dr. Tyra VasquezR IMMUNITYon 44-56-1491Lhgef Abs, JbP817.0 AU/mLNormalImmune >10.9The [facility]S HospitalComment on above:Result Comment: Negative <9.0 Equivocal 9.0 - 10.9 Positive >10.9 A positive result generally indicates past exposure to Mumps virus or previous vaccination.Performed By: #### PREGQNT #### [facility] [address] [place] [address] Dr. Tyra Choe Antibodies, IgG11.90 indexNormalImmune >0.99The [facility]S HospitalComment on above:Result Comment: Non-immune <0.90 Equivocal 0.90 - 0.99 Immune >0.99Performed By: #### PREGQNT #### [facility] [address] [place] [address] Dr. Tyra Reed Ab, QuS711.0 AU/mLNormalImmune >16.4The [facility] Comment on above:Result Comment: Negative <13.5 Equivocal 13.5 - 16.4 Positive >16.4 Presence of antibodies to Rubeola is presumptive evidence of immunity except when acute infection is suspected.Performed By: #### PREGQNT #### [facility] [address] [place] [address] Dr. Tyra Rodriguez IGG ABon [id number] Zoster [id number] indexNormal Immune >165The [facility]'S HospitalComment on above:Result Comment: Negative <135 Equivocal 135 - 165 Positive >165 A positive result generally indicates exposure to the pathogen or administration of specific immunoglobulins, but it is not indication of active infection or stage of disease.Performed By: #### UAMIC #### [facility] [address] [place] [address] Dr. Tyra Clark ACOG PANEL 2: 30 to 65on 05-31-2022..NormalThe [facility]'S HospitalComment on above:Result Comment: Performed at: WBPerformed By: #### [id number] #### [facility] [address] [place] [address] Dr. Tyra Love Gdln ACOG Hqocvcm40-40PxsygpQhiMercy Health Urbana HospitalComment on above:Performed By: #### [id number] #### [facility] [address] [place] [address] Dr. Tyra PoonDIAGNOSIS:CommentLakeHealth Beachwood Medical Center on above: Result Comment: NEGATIVE FOR INTRAEPITHELIAL LESION OR MALIGNANCY. CELLULAR CHANGES ASSOCIATED WITH INFLAMMATION ARE PRESENT. Performed at: WBPerformed By: #### [id number] #### [facility] [address] [place] [address] Dr. Tyra PoonHPV AptimaNegativeNormalNegativeThe [facility] HospitalComstraith hospital for special surgery on above:Result Comment: This nucleic acid amplification test detects fourteen high-risk HPV types (16,18,31,33,35,39,45,51,52,56,58,59,66,68) without differentiation. Performed at: =GPerformed By: #### [id number] #### [facility] [address] [place] [address] Dr. Tyra PoonHPJosefa Genotype ReflexCommentNoAvita Health System on above:Result Comment: Criteria not met, HPV Genotype not performed. Performed at: WBPerformed By: #### [id number] #### [facility] [address] [place] [address] Dr. Tyra PoonMethodology:CommentLakeHealth Beachwood Medical Center on above: Result Comment: This liquid based ThinPrep(R) pap test was screened with the use of an image guided system. Performed at: WBPerformed By: #### [id number] #### [facility] [address] [place] [address] Dr. Tyra PoonNote:CommentLakeHealth Beachwood Medical Center on above:Result Comment: The Pap smear is a screening test designed to aid in the detection of premalignant and malignant conditions of the uterine cervix. It is not a diagnostic procedure and should not be used as the sole means of detecting cervical cancer. Both false-positive and false-negative reports do occur. . Performed at: WBPerformed By: #### [id number] #### [facility] [address] [address] [address] Tyra PoonPerformed by:CommentNoAvita Health System on above: Result Comment: Que [place], [employer] (ASCP) Performed at: Performed By: #### [id number] #### [facility] [address] [address] [address] Tyra PoonSpecimen adequacy:CommentLakeHealth Beachwood Medical Center on above:Result Comment: Satisfactory for evaluation. Endocervical and/or squamous metaplastic cells (endocervical component) are present. Performed at: WBPerformed By: #### [id number] #### [facility] [address] [place] [address] Dr. Tyra PoonUS PELVIS AND TRANSVAGon 62-03-2048MH PELVIS AND TRANSVAG EXAMINATION: US PELVIS AND [...] Electronically authenticated by: TIM PAZ Date: 2022-05-14 09:50NoMercy Health Urbana HospitalAMYLASEon [id number] [Catalytic activity/Vol]40 U/L Xwqlwx03-730VgnPike Community HospitalComment on above:Performed By: #### DDIM #### [facility] [address] [place] [address] Dr. Tyra Moon AUTO DIFFon [id number] #0.1 103/ulNormal0.0-0.1The [facility]S HospitalComment on above:Performed By: #### CBC #### [facility] [address] [place] [address] Dr. Tyra PoonBasophils/100 WBC (Bld)1.3 %Normal0.2-2.0The [facility] Comment on above:Performed By: #### CBC #### [facility] [address] [place] [address] Dr. Tyra Nunn #0.2 103/ulNormal0.0-0.7The [facility] HospitalComment on above: Performed By: #### CBC #### [facility] [address] [place] [address] Dr. Tyra Estradaosinophils/100 WBC (Bld)2.9 %Normal0.9-7.0The [facility] Comment on above:Performed By: #### CBC #### [facility] [address] [place] [address] Dr. Tyra Estradarythrocyte distribution width (RBC) [Ratio]14.4 %Qgxtes57.0-15.0 The [facility] HospitalComment on above:Performed By: #### CBC #### [facility] [address] [place] [address] Dr. Tyra PoonHematocrit (Bld) [Volume fraction]36.8 %Zvydrc99.0-48.0The [facility] HospitalComment on above:Performed By: #### CBC #### [facility] [address] [place] [address] Dr. Tyra PoonHemoglobin (Bld) [Mass/Vol]12.0 g/iWSmhbdr78.0-16.0The [facility] HospitalComment on above:Performed By: #### CBC #### [facility] [address] [place] [address] Dr. Tyra Hodgson #0.05 10e3/ulCritically high0.00-0.03The [facility] Comment on above:Performed By: #### CBC #### [facility] [address] [place] [address] Dr. Tyra Hodgson %0.6 %Critically high0.0-0.5The [facility] HospitalComment on above:Performed By: #### CBC #### [facility] [address] [place] [address] Dr. Tyra Rivera #3.3 103/ulNormal1.2-3.8The Chevak HospitalComment on above:Performed By: #### CBC #### [facility] [address] [place] [address] Dr. Tyra Souzahocytes/100 WBC (Bld)38.9 %Glqiad45.5-60.0The [facility] HospitalComment on above:Performed By: #### CBC #### [facility] [address] [place] [address] Dr. Tyra Green DIFF REQNONormalThe [facility]S HospitalComment on above: Performed By: #### CBC #### [facility] [address] [place] [address] Dr. Tyra Alvarenga (RBC) [Entitic mass]27.0 bdVaxjfm83.7-34.0The [facility] HospitalComment on above:Performed By: #### CBC #### [facility] [address] [place] [address] Dr. Tyra Campbell (RBC) [Mass/Vol]32.6 g/iWFazrkf83.9-35.2The [facility] HospitalComment on above:Performed By: #### CBC #### [facility] [address] [place] [address] Dr. Tyra Francisco (RBC) [Entitic vol]82.9 mETesvbc70.0-99.0The [facility] HospitalComment on above:Performed By: #### CBC #### [facility] [address] [place] [address] Dr. Tyra Collins #0.6 103/ulNormal0.3-0.8The [facility] HospitalComment on above:Performed By: #### CBC #### [facility] [address] [place] [address] Dr. Tyra Herocytes/100 WBC (Bld)6.7 %Normal1.7-12.0The [facility] Comment on above:Performed By: #### CBC #### [facility] [address] [place] [address] Dr. Tyra Haji #4.2 103/ulNormal1.4-6.5The [facility] HospitalComment on above:Performed By: #### CBC #### [facility] [address] [place] [address] Dr. Tyra Cartwrightutrophils/100 WBC (Bld)49.6 %Wqmehc44.0-75.0The [facility]S HospitalComment on above:Performed By: #### CBC #### [facility] [address] [place] [address] Dr. Tyra Tovarlet mean volume (Bld) [Entitic vol]9.4 fLCritically low 9.5-13.5The [facility] HospitalComment on above:Performed By: #### CBC #### [facility] [address] [place] [address] Dr. Tyra PoonPLT347 103/ulAtiuda172-487Mux [facility] HospitalComment on above: Performed By: #### CBC #### [facility] [address] [place] [address] Dr. Tyra PoonRBC4.44 106/ulNormal4.20-5.40The [facility] HospitalComment on above:Performed By: #### CBC #### [facility] [address] [place] [address] Dr. Tyra PoonWBC8.4 103/ulNormal4.0-11.0The [facility] HospitalComment on above: Performed By: #### CBC #### [facility] [address] [place] [address] Dr. Tyra PoonCT ABD/PELVIS WO CONon [id number] ABD/PELVIS WO CONEXAMINATION: CT ABD/PELVIS WO CON HISTORY: UNSPECIFIED ABDOMINAL [...] Electronically authenticated by: TIM PAZ Date: 2022-04-30 10:10NormBlanchard Valley Health System URINE PROFILEon [id number] Ql (U)NegativeNormal NEGATIVEThe [facility]S HospitalComment on above:Performed By: #### UAMIC #### [facility] [address] [place] [address] Dr. Tyra Botelloarity (U)CLEARNormalCLEARThe [facility] HospitalComment on above: Performed By: #### UAMIC #### [facility] [address] [address] [address] Tyra Hauserlor (U)YELLOWNormalYELLOWPike Community HospitalComment on above: Performed By: #### UAMIC #### [facility] [address] [address] [address] Tyra Perez micrscopic examination will be performed if indicated. NormalSelect Medical Specialty Hospital - Youngstown HospitalComment on above:Performed By: #### UAMIC #### [facility] [address] [address] [address] Tyra PoonGlucose Ql (U)NegativeNormalNEGATIVEPike Community HospitalComment on above:Performed By: #### UAMIC #### [facility] [address] [address] [address] Tyra PoonHemoglobin Ql (U)NegativeNormalNEGATIVEAcmc Healthcare System Glenbeigh on above:Performed By: #### UAMIC #### [facility] [address] [address] [address] Tyra PoonKetones Ql (U)NegativeNormalNEGATIVEPike Community HospitalComment on above:Performed By: #### UAMIC #### [facility] [address] [place] [address] Dr. Tyra PoonLEUKOCYTESNegativeNormalNEGATIVEPike Community HospitalComstraith hospital for special surgery on above:Performed By: #### UAMIC #### [facility] [address] [address] [address] Tyra PoonNitrite Ql (U)NegativeNormalNEGATIVEPike Community HospitalComment on above:Performed By: #### UAMIC #### [facility] [address] [address] [address] Tyra PoonpH (U)6.0 [pH]Normal5-9Pike Community HospitalComment on above: Performed By: #### UAMIC #### [facility] [address] [address] [address] Tyra PoonSPEC GRAVITY>=1.209Zdslnwyq3.005-<=1.025The [facility] Comment on above:Performed By: #### UAMIC #### [facility] [address] [place] [address] Dr. Tyra Zambrano PROTEINNegativeNormalNEGATIVE/ TRACEThe [facility] Comment on above:Performed By: #### UAMIC #### [facility] [address] [place] [address] Dr. Tyra Luis MICRO INDNOT INDICATEDNormalThe [facility]S HospitalComment on above:Performed By: #### UAMIC #### [facility] [address] [place] [address] Dr. Tyra PoonUrobilinogen Qn (U)0.2 {[place]ho[place]'U}/dLNormal0.2 - 1.0The [facility] HospitalComment on above:Performed By: #### UAMIC #### [facility] [address] [place] [address] Dr. Tyra PoonLIPASEon [id number] [Catalytic activity/Vol]83.0 U/LNormal 73.0-393.0The [facility] HospitalComment on above:Performed By: #### DDIM #### [facility] [address] [place] [address] Dr. Tyra PoonPREGNANCY URon [id number], QUALNegativeNormalNEGATIVEThe [facility]S HospitalComment on above:Performed By: #### UAMIC #### [facility] [address] [place] [address] Dr. Tyra PoonPROF 14(COMP METB)on [id number] [Mass/Vol]3.6 g/dLNormal 3.4-5.0The [facility] HospitalComment on above:Performed By: #### DDIM #### [facility] [address] [place] [address] Dr. Tyra PoonAlbumin/Globulin [Mass ratio]0.8 {ratio}NormalThe [facility]S HospitalComment on above:Performed By: #### DDIM #### [facility] [address] [place] [address] Dr. Tyra Yadav [Catalytic activity/Vol]65 U/ERbdrrl08-890Tfc [facility] HospitalComment on above:Performed By: #### DDIM #### [facility] [address] [address] [address] Tyra MelvinT [Catalytic activity/Vol]13 U/LCritically axu08-17Utq [facility] HospitalComment on above:Performed By: #### DDIM #### [facility] [address] [address] [address] Tyra Melendezon gap [Moles/Vol]12.5 mmol/LNormalPike Community Hospital Comment on above:Performed By: #### DDIM #### [facility] [address] [address] [address] Tyra PoonAST [Catalytic activity/Vol]12 U/LCritically lwx35-71Baa [facility] HospitalComment on above:Performed By: #### DDIM #### [facility] [address] [place] [address] Dr. Tyra PoonBilirubin [Mass/Vol]0.3 mg/dLNormal0.2-1.0[facility] Comment on above:Performed By: #### DDIM #### [facility] [address] [place] [address] Dr. Tyra PoonCalcium [Mass/Vol]8.8 mg/dLNormal8.5-10.1[facility] Comment on above:Performed By: #### DDIM #### [facility] [address] [place] [address] Dr. Tyra PoonChloride [Moles/Vol]103 mmol/WLtebgb88-536Cze [facility] Comment on above:Performed By: #### DDIM #### [facility] [address] [address] [address] Tyra PoonCO2 [Moles/Vol]26.3 mmol/TGmzzgs40.0-32.0The [facility] Comment on above:Performed By: #### DDIM #### [facility] [address] [place] [address] Dr. Tyra Penaatinine [Mass/Vol]0.87 mg/dLNormal0.55-1.02The [facility] HospitalComment on above:Performed By: #### DDIM #### [facility] [address] [place] [address] Dr. Tyra EstradaGFR-AF CHILEAN>60Normal>=60The [facility] HospitalComment on above:Performed By: #### DDIM #### [facility] [address] [address] [address] Tyra EstradaGFR-NON AF CHILEAN>60Normal>=60The [facility] HospitalComment on above:Performed By: #### DDIM #### [facility] [address] [place] [address] Dr. Tyra PoonGlobulin (S) [Mass/Vol]4.3 g/dLNormalThe [facility] HospitalComment on above:Performed By: #### DDIM #### [facility] [address] [place] [address] Dr. Tyra PoonGlucose [Mass/Vol]120 mg/dLCritically fxcp47-143Uhw [facility] Hospitalment on above:Performed By: #### DDIM #### [facility] [address] [place] [address] Dr. Tyra PoonPotassium [Moles/Vol]3.8 mmol/LNormal3.5-5.1[facility] Comment on above:Performed By: #### DDIM #### [facility] [address] [place] [address] Dr. Tyra PoonProtein [Mass/Vol]7.9 g/dLNormal6.4-8.2The [facility] Comment on above:Performed By: #### DDIM #### [facility] [address] [place] [address] Dr. Tyra PoonSodium [Moles/Vol]138 mmol/EAuuzqj563-402Ovp [facility] Comment on above:Performed By: #### DDIM #### [facility] [address] [place] [address] Dr. Yilan ChangUrea nitrogen [Mass/Vol]11.0 mg/dLNormal7.0-18.0The [facility] HospitalComment on above:Performed By: #### DDIM #### [facility] [address] [place] [address] Dr. Tyra Brennan nitrogen/Creatinine [Mass ratio]12.6 mg/mgNormalThUC Medical CenterComment on above:Performed By: #### DDIM #### [facility] [address] [place] [address] Dr. Tyra Moon AUTO DIFFon [id number] #0.1 103/ulNormal0.0-0.1The [facility] HospitalComment on above:Performed By: #### DDIM #### [facility] [address] [place] [address] Dr. Tyra PoonBasophils/100 WBC (Bld)0.9 %Normal0.2-2.0[facility] Comment on above:Performed By: #### DDIM #### [facility] [address] [place] [address] Dr. Tyra Nunn #0.2 103/ulNormal0.0-0.7The [facility] HospitalComment on above: Performed By: #### DDIM #### [facility] [address] [place] [address] Dr. Tyra Estradaosinophils/100 WBC (Bld)2.2 %Normal0.9-7.0The [facility] Comment on above:Performed By: #### DDIM #### [facility] [address] [place] [address] Dr. Tyra Estradarythrocyte distribution width (RBC) [Ratio]14.0 %Exmnmw89.0-15.0 [facility] HospitalComment on above:Performed By: #### DDIM #### [facility] [address] [place] [address] Dr. Tyra PoonHematocrit (Bld) [Volume fraction]34.1 %Critically low36.0-48.0 The [facility]S HospitalComment on above:Performed By: #### DDIM #### [facility] [address] [address] [address] Tyra PoonHemoglobin (Bld) [Mass/Vol]10.7 g/dLCritically low12.0-16.0The [facility] HospitalComment on above:Performed By: #### DDIM #### [facility] [address] [address] [address] Tyra Hodgson #0.05 10e3/ulCritically high0.00-0.03The [facility] Comment on above:Performed By: #### DDIM #### [facility] [address] [address] [address] Tyra Hodgson %0.6 %Critically high0.0-0.5The [facility] HospitalComment on above:Performed By: #### DDIM #### [facility] [address] [address] [address] Tyra Rivera #2.6 103/ulNormal1.2-3.8The [facility] HospitalComment on above:Performed By: #### DDIM #### [facility] [address] [address] [address] Tyra Souzahocytes/100 WBC (Bld)31.8 %Skljjk66.5-60.0The [facility] HospitalComment on above:Performed By: #### DDIM #### [facility] [address] [address] [address] Tyra LedezmaUAL DIFF REQNONormalThe [facility] HospitalComment on above: Performed By: #### DDIM #### [facility] [address] [address] [address] Tyra Alvarenga (RBC) [Entitic mass]26.6 pgCritically low26.7-34.0The [facility] HospitalComment on above:Performed By: #### DDIM #### [facility] [address] [address] [address] Tyra Campbell (RBC) [Mass/Vol]31.4 g/zGNhhnoy43.9-35.2The [facility] HospitalComment on above:Performed By: #### DDIM #### [facility] [address] [place] [address] Dr. Tyra CampbellV (RBC) [Entitic vol]84.8 tVEqmttk27.0-99.0The [facility] HospitalComment on above:Performed By: #### DDIM #### [facility] [address] [place] [address] Dr. Tyra Collins #0.5 103/ulNormal0.3-0.8The [facility] HospitalComment on above:Performed By: #### DDIM #### [facility] [address] [place] [address] Dr. Tyra Herocytes/100 WBC (Bld)6.4 %Normal1.7-12.0The [facility] Comment on above:Performed By: #### DDIM #### [facility] [address] [place] [address] Dr. Tyra Haji #4.7 103/ulNormal1.4-6.5The [facility] HospitalComment on above:Performed By: #### DDIM #### [facility] [address] [place] [address] Dr. Tyra Cartwrightutrophils/100 WBC (Bld)58.1 %Qxzpol80.0-75.0The [facility]S HospitalComment on above:Performed By: #### DDIM #### [facility] [address] [place] [address] Dr. Tyra Tovarlet mean volume (Bld) [Entitic vol]9.7 fLNormal9.5-13.5The [facility] HospitalComment on above:Performed By: #### DDIM #### [facility] [address] [place] [address] Dr. Tyra PoonPLT318 103/lqVbvfii896-536Nrw [facility] HospitalComment on above: Performed By: #### DDIM #### [facility] [address] [place] [address] Dr. Tyra PoonRBC4.02 106/ulCritically low4.20-5.40The [facility] HospitalComment on above:Performed By: #### DDIM #### [facility] [address] [place] [address] Dr. Tyra PoonWBC8.0 103/ulNormal4.0-11.0The [facility] HospitalComment on above: Performed By: #### DDIM #### [facility] [address] [place] [address] Dr. Tyra PoonFERRITINon 85-75-2748Dvieaqsx [Mass/Vol]12.0 ng/mLNormal6.2-137.0 The [facility] HospitalComment on above:Performed By: #### DDIM #### [facility] [address] [place] [address] Dr. Tyra PoonFRSAMIR T4on 77-72-6557Dvps T4 [Mass/Vol]1.04 ng/dLNormal0.76-1.46 The [facility] HospitalComstraith hospital for special surgery on above:Performed By: #### PREGQNT #### [facility] [address] [place] [address] Dr. Tyra PoonIROLissett 01-20-9387Sovt [Mass/Vol]32.0 ug/dLCritically low 50.0-170.0The [facility] HospitalComment on above:Performed By: #### DDIM #### [facility] [address] [place] [address] Dr. Tyra PoonLIPID PROFILEon [id number]-HDL RATIO NORMSEE [facility] HospitalComment on above:Result Comment: 3.3 - 4.4 LOW RISK 4.4 - 7.1 AVERAGE RISK 7.1 - 11.0 MODERATE RISK >11.0 HIGH RISKPerformed By: #### UAMIC #### [facility] [address] [place] [address] Dr. Tyra PoonCholesterol [Mass/Vol]236 mg/dLCritically high<=200The [facility] on above:Performed By: #### UAMIC #### [facility] [address] [place], [place] [address] Dr. Tyra PoonCholesterol in HDL [Mass/Vol]65 mg/dLCritically wbll80-54Axe [facility] HospitalComment on above:Performed By: #### UAMIC #### [facility] [address] [place] [address] Dr. Tyra PoonCholesterol in LDL [Mass/Vol]149.8 mg/dLRegency Hospital CompanyComment on above:Performed By: #### UAMIC #### [facility] [address] [place] [address] Dr. Tyra Shelleyesterbhupinder.total/Cholesterol in HDL [Mass ratio]3.6 {ratio} NormalThe [facility]S HospitalComment on above:Performed By: #### UAMIC #### [facility] [address] [place] [address] Dr. Tyra PoonHDL NORMAL> or = 60 mg/dl - LOW CARDIOVASCULAR RISK <40 mg/dl - HIGH CARDIOVASCULAR RISKNoMercy Health Urbana HospitalComment on above:Performed By: #### UAMIC #### [facility] [address] [place] [address] Dr. Tyra PoonLDL CALC NORMALSEE BELOWRegency Hospital CompanyComment on above:Result Comment: <100 mg/dl OPTIMAL 100 - 129 mg/dl NEAR OR ABOVE OPTIMAL 130 - 159 mg/dl BORDERLINE HIGH 160 - 189 mg/dl HIGH >190 mg/dl VERY HIGH Performed By: #### UAMIC #### [facility] [address] [place] [address] Dr. Tyra PoonTriglyceride [Mass/Vol]106 mg/dLNormal<=150The [facility] Comment on above:Performed By: #### UAMIC #### [facility] [address] [place] [address] Dr. Tyra FrederickLDL CALC21.2 mg/dLNoMercy Health Urbana HospitalComment on above: Performed By: #### UAMIC #### [facility] [address] [place] [address] Dr. Tyra PoonPROF 14(COMP METB)on 16-18-6648Eyytjpn [Mass/Vol]3.4 g/dLNormal 3.4-5.0The [facility] HospitalComment on above:Performed By: #### UAMIC #### [facility] [address] [place] [address] Dr. Tyra PoonAlbumin/Globulin [Mass ratio]0.8 {ratio}NormalThe [facility] HospitalComment on above:Performed By: #### UAMIC #### [facility] [address] [place] [address] Dr. Tyra Yadav [Catalytic activity/Vol]63 U/UQhfpby70-596Yxu [facility] HospitalComment on above:Performed By: #### UAMIC #### [facility] [address] [place] [address] Dr. Tyra Diaz [Catalytic activity/Vol]24 U/CXqxxvx75-12Vpx [facility] HospitalComment on above:Performed By: #### UAMIC #### [facility] [address] [place] [address] Dr. Tyra Davies gap [Moles/Vol]10.4 mmol/LNormalThe [facility] Comment on above:Performed By: #### UAMIC #### [facility] [address] [place] [address] Dr. Tyra PoonAST [Catalytic activity/Vol]14 U/LCritically ahf55-30Txq [facility] HospitalComment on above:Performed By: #### UAMIC #### [facility] [address] [place] [address] Dr. Tyra PoonBilirubin [Mass/Vol]0.3 mg/dLNormal0.2-1.0The [facility] Comment on above:Performed By: #### UAMIC #### [facility] [address] [place] [address] Dr. Tyra PoonCalcium [Mass/Vol]8.7 mg/dLNormal8.5-10.1The [facility] Comment on above:Performed By: #### UAMIC #### [facility] [address] [place] [address] Dr. Tyra PoonChloride [Moles/Vol]101 mmol/IGyjlyx45-970Bsy [facility] Comment on above:Performed By: #### UAMIC #### [facility] [address] [place] [address] Dr. Tyra PoonCO2 [Moles/Vol]29.8 mmol/UCrortx96.0-32.0The [facility] Comment on above:Performed By: #### UAMIC #### [facility] [address] [place] [address] Dr. Tyra PoonCreatinine [Mass/Vol]0.89 mg/dLNormal0.55-1.02The [facility] HospitalComment on above:Performed By: #### UAMIC #### [facility] [address] [place] [address] Dr. Tyra EstradaGFR-AF CHILEAN>60Normal>=60The [facility]S HospitalComment on above:Performed By: #### UAMIC #### [facility] [address] [place] [address] Dr. Tyra EstradaGFR-NON AF CHILEAN>60Normal>=60The [facility]'S HospitalComment on above:Performed By: #### UAMIC #### [facility] [address] [place] [address] Dr. Tyra PoonGlobulin (S) [Mass/Vol]4.3 g/dLNormalThe [facility]'S HospitalComment on above:Performed By: #### UAMIC #### [facility] [address] [place] [address] Dr. Tyra PoonGlucose [Mass/Vol]107 mg/dLCritically zsgd33-203Pou [facility] HospitalComment on above:Performed By: #### UAMIC #### [facility] [address] [place] [address] Dr. Tyra PoonPotassium [Moles/Vol]4.2 mmol/LNormal3.5-5.1The [facility] Comment on above:Performed By: #### UAMIC #### [facility] [address] [place] [address] Dr. Tyra PoonProtein [Mass/Vol]7.7 g/dLNormal6.4-8.2[facility] Comment on above:Performed By: #### UAMIC #### [facility] [address] [place] [address] Dr. Tyra Sunum [Moles/Vol]137 mmol/TYaqncf786-376IuoP[facility] Comment on above:Performed By: #### UAMIC #### [facility] [address] [place] [address] Dr. Tyra Brennan nitrogen [Mass/Vol]15.0 mg/dLNormal7.0-18.0The [facility]S HospitalComment on above:Performed By: #### UAMIC #### [facility] [address] [place] [address] Dr. Tyra Brennan nitrogen/Creatinine [Mass ratio]16.9 mg/mgNoalThUC Medical CenterComment on above:Performed By: #### UAMIC #### [facility] [address] [place] [address] Dr. Tyra Cruz 73-72-9685RHA2.550 uIU/mLNormal0.358-3.740[facility] HospitalComment on above:Performed By: #### UAMIC #### [facility] [address] [place] [address] Dr. Tyra Zambrano RANDOM W/MICROSCOPICon 74-39-4600EHNDRKNFGKWD SEENNormalNONE SEENPike Community HospitalComment on above:Performed By: #### UAMIC #### [facility] [address] [place] [address] Dr. Tyra Dasirubin Ql (U)NegativeNormalNEGATIVEPike Community Hospital Comment on above:Performed By: #### UAMIC #### [facility] [address] [place] [address] Dr. Tyra PoonCASTMURALI SEENNormalNONE SEENPike Community HospitalComment on above:Performed By: #### UAMIC #### [facility] [address] [place] [address] Dr. Tyra Botelloarity (U)CLEARNormalCLEARThe [facility] Children'S HospitalComment on above: Performed By: #### UAMIC #### [facility] [address] [address] [address] Tyra Hauserlor (U)YELLOWNormalYELLOWPike Community HospitalComment on above: Performed By: #### UAMIC #### [facility] [address] [address] [address] Tyra PoonCrystals LM Nom (Urine sed)NONE SEENNormalNONE SEENPike Community HospitalComment on above:Performed By: #### UAMIC #### [facility] [address] [address] [address] Mary ChangEpithelial cells LM Ql (Urine sed)RARENormalNONE SEEN /RAREPike Community HospitalComment on above:Performed By: #### UAMIC #### [facility] [address] [address] [address] Tyra PoonGlucose Ql (U)NegativeNormalNEGATIVEPike Community HospitalComment on above:Performed By: #### UAMIC #### [facility] [address] [address] [address] Tyra PoonHemoglobin Ql (U)MODERATEAbnormalNEGATIVEAcmc Healthcare System Glenbeigh on above:Performed By: #### UAMIC #### [facility] [address] [address] [address] Tyra PoonKetones Ql (U)NegativeNormalNEGATIVEPike Community HospitalComment on above:Performed By: #### UAMIC #### [facility] [address] [address] [address] Tyra PoonLEUKOCYTESNegativeNormalNEGATIVEPike Community HospitalComstraith hospital for special surgery on above:Performed By: #### UAMIC #### [facility] [address] [address] [address] Tyra PoonMUCOUSNONE SEENNormalNONE SEENPike Community HospitalComment on above:Performed By: #### UAMIC #### [facility] [address] [address] [address] Tyra PoonNitrite Ql (U)NegativeNormalNEGATIVEThe [facility] Children'S HospitalComment on above:Performed By: #### UAMIC #### [facility] [address] [address] [address] Tyra PoonpH (U)6.0 [pH]Normal5-9The [facility] Children'S HospitalComment on above: Performed By: #### UAMIC #### [facility] [address] [address] [address] Tyra PoonMiddeFQL8-5Oeywpe8-1Zln [facility]S HospitalComment on above:Performed By: #### UAMIC #### [facility] [address] [address] [address] Tyra PoonSPEC GRAVITY1.537Kbogui9.005-<=1.025The [facility]'S HospitalComment on above:Performed By: #### UAMIC #### [facility] [address] [place] [address] Dr. Tyra PoonUA PROTEINNegativeNormalNEGATIVE/ TRACEThe [facility] Comment on above:Performed By: #### UAMIC #### [facility] [address] [address] [address] Tyra PoonUrobilinogen Qn (U)0.2 {[place]'U}/dLNormal0.2 - 1.0The [facility]'S HospitalComment on above:Performed By: #### UAMIC #### [facility] [address] [place] [address] Dr. Tyra PoonWBCNONE SEENNormalNONE SEENThe [facility] Children'S HospitalComment on above: Performed By: #### UAMIC #### [facility] [address] [address] [address] Tyra Poon Vital Signs Date TimeVital SignValuePerforming XposayuzpMmjwuxac92-18-5614 10:33-0400Body kryugl886.02 cmPHYSICIAN [facility]10-22-2025 10:33-0400Body mass index (BMI) [Ratio]51.9 kg/b8QNFUMHXWE [facility]10-22-2025 10:33-0400Body mpxloimielh82.5 [degF]PHYSICIAN NO [facility]10-22-2025 10:33-0400Body mzeldm220.9 kgPHYSICIAN [facility]10-22-2025 10:33-0400 Diastolic blood hwudckll17 mm[Hg]PHYSICIAN NO [facility]10-22-2025 10:33-0400Heart rate71 /minPHYSICIAN NO [facility]10-22-2025 10:33-0400Respiratory rate20 /minPHYSICIAN [facility]10-22-2025 10:33-3972PnM9% (BldA) [Mass fraction]95 %PHYSICIAN NO [facility]10-22-2025 10:33-0400Systolic blood phogxyqo277 mm[Hg]PHYSICIAN NO [facility]10-06-2025 10:01-0400Body atcobe375.02 cmPHYSICIAN [facility]10-06-2025 10:01-0400Body mass index (BMI) [Ratio]52.6 kg/s5DAFJPWUHQ [facility]10-06-2025 10:01-0400Body siyawphllmw56.3 [degF]PHYSICIAN NO [facility]10-06-2025 10:01-0400Body .71 kgPHYSICIAN [facility]10-06-2025 10:01-0400Diastolic blood hvrmhtiz78 mm[Hg]PHYSICIAN NO [facility]10-06-2025 10:01-0400 Heart rate60 /minPHYSICIAN [facility]10-06-2025 10:01-0400Respiratory rate20 /minPHYSICIAN [facility]10-06-2025 10:01-5618MnP0% (BldA) [Mass fraction]96 %PHYSICIAN NO [facility]10-06-2025 10:01-0400Systolic blood jxoegexp564 mm[Hg]PHYSICIAN NO [facility]08-11-2025 11:28-0400 Body mass index (BMI) [Ratio]49.6 kg/m2Aida Chaves TRAFFIC SURVEY TECHNICIAN Work Phone: [facility] CenterEtkzkjolvz57-56-4889 11:28-0400Body temperature 98.1 [degF]Aida Chaves TRAFFIC SURVEY TECHNICIAN Work Phone: [facility] CenterTiaqdaotve47-22-6278 11:28-0400Body rkcquw999.01 kgAida Chaves TRAFFIC SURVEY TECHNICIAN Work Phone: [facility] CenterYfgicjaezn33-22-6720 11:28-0400Diastolic blood xmrnqana00 mm[Hg]Aida Chaves TRAFFIC SURVEY TECHNICIAN Work Phone: [facility] CenterMttluazici74-62-6674 11:28-0400Heart rate67 /min Aida Chaves TRAFFIC SURVEY TECHNICIAN Work Phone: [facility] CenterAaiqofpkqo07-47-8297 11:28-0400Respiratory rate18 /minAida Chaves TRAFFIC SURVEY TECHNICIAN Work Phone: [facility] CenterLwwxwtjekg97-43-3250 11:28-0791BqY9% (BldA) [Mass fraction]98 %Aida Chaves TRAFFIC SURVEY TECHNICIAN Work Phone: [facility] CenterArdkunirgg47-72-9997 11:28-0400Systolic blood vgvpeyfb093 mm[Hg]Aida Chaves TRAFFIC SURVEY TECHNICIAN Work Phone: [facility] CenterPzffrekhjv58-01-5386 13:03-0400Body mass index (BMI) [Ratio]47.9 kg/i1Ujitk Acosta DO Work Phone: [facility] CenterAfvfvggcmw54-46-5481 13:03-0400Body oqfcgc981.65 kgCorey Acosta DO Work Phone: [facility] CenterMrkcqindgx46-58-1112 13:03-0400Diastolic blood qoxfcaaq70 mm[Hg]Phil Acosta DO Work Phone: [facility] CenterEkwajxijsj39-44-1186 13:03-0400Systolic blood mm[Hg]Phil Acosta DO Work Phone: [facility] CenterUvlenkwuiq94-85-9085 13:41-0500Body mass index (BMI) [Ratio]48.61 kg/m2Lisa Blackz TRAFFIC SURVEY TECHNICIAN Work Phone: [facility] CenterFvvejqivfi36-80-6290 13:41-0500Body temperature 98.8 [degF]Aida Blackz TRAFFIC SURVEY TECHNICIAN Work Phone: [facility] CenterBjhmacchhf70-72-1225 13:41-0500Body grkkju145.47 kgLisa Gayholz TRAFFIC SURVEY TECHNICIAN Work Phone: [facility] CenterQrvthxycaj95-41-6963 13:41-0500Diastolic blood gqmeocdz72 mm[Hg]Aida Waynez TRAFFIC SURVEY TECHNICIAN Work Phone: [facility] CenterJkecrumuxj55-76-2533 13:41-0500Heart rate96 /min Aidaallison Blackz TRAFFIC SURVEY TECHNICIAN Work Phone: [facility] CenterFkxaihqyip46-35-7245 13:41-9292ThV8% (BldA) [Mass fraction]97 %Aida Waynez TRAFFIC SURVEY TECHNICIAN Work Phone: [facility] CenterXfsculiych24-99-0681 13:41-0500Systolic blood mm[Hg]Aida Waynez TRAFFIC SURVEY TECHNICIAN Work Phone: [facility] CenterWjxfvxfoqg62-73-0027 15:48-0400Body cm Aida Blackz TRAFFIC SURVEY TECHNICIAN Work Phone: [facility] CenterTtqovvoeme09-17-1591 15:48-0400Body mass index (BMI) [Ratio]52.33 kg/m2Lisa Gayholz TRAFFIC SURVEY TECHNICIAN Work Phone: [facility] CenterMgejichtod71-65-1103 15:48-0400Body temperature 97.81 [degF]Aida Blackz TRAFFIC SURVEY TECHNICIAN Work Phone: [facility] CenterEohujgopfb53-44-4909 15:48-0400Body azyqrd399.99 kgLisa Rashidholz TRAFFIC SURVEY TECHNICIAN Work Phone: [facility] CenterKnvkuxoczk39-60-7176 15:48-0400Diastolic blood hwjblyoy03 mm[Hg]Aida Waynez TRAFFIC SURVEY TECHNICIAN Work Phone: [facility] CenterNwpvnlasab39-74-6745 15:48-0400Heart rate89 /min Aida Gayholz TRAFFIC SURVEY TECHNICIAN Work Phone: [facility] CenterJcferntlvi47-88-8331 15:48-0400Respiratory rate18 /minLisa Gayholz TRAFFIC SURVEY TECHNICIAN Work Phone: [facility] CenterPideecxwth54-78-6249 15:48-4610PlG6% (BldA) [Mass fraction]99 %Aida Waynez TRAFFIC SURVEY TECHNICIAN Work Phone: [facility] CenterMvilclpagp60-36-5667 15:48-0400Systolic blood sgebbwwm781 mm[Hg]Aida Gayholz TRAFFIC SURVEY TECHNICIAN Work Phone: [address] [address]Vrbeijpqre02-36-6165 15:02-0400Body xpahyp259 cm Aida Waynez TRAFFIC SURVEY TECHNICIAN Work Phone: [facility] CenterWxzxbmaieg26-97-0638 15:02-0400Body mass index (BMI) [Ratio]52.08 kg/m2Lisa Gayholz TRAFFIC SURVEY TECHNICIAN Work Phone: [facility] CenterWglybemyzy89-74-2584 15:02-0400Body temperature 98.8 [degF]Aida Waynez TRAFFIC SURVEY TECHNICIAN Work Phone: [facility] CenterBjmofeqwof07-12-0316 15:02-0400Body aavksa451.36 kgLisa Gayholz TRAFFIC SURVEY TECHNICIAN Work Phone: [facility] CenterEbvbzwaizj51-96-0416 15:02-0400Diastolic blood ddcavgoq74 mm[Hg]Aida Gayholz TRAFFIC SURVEY TECHNICIAN Work Phone: [address] [address]Ckkpmymyob30-56-9304 15:02-0400Heart rate79 /min Aida Gayholz TRAFFIC SURVEY TECHNICIAN Work Phone: [address] [place] [address]Emwhjrytqv36-82-0444 15:02-0400Respiratory rate18 /minLisa Gayholz TRAFFIC SURVEY TECHNICIAN Work Phone: [address] [address]Xblmtuabnn37-72-7865 15:02-1555MkP3% (BldA) [Mass fraction]99 %Aida Rashidcieol TRAFFIC SURVEY TECHNICIAN Work Phone: [facility] Cdnkkehfrs78-62-6571 15:02-0400Systolic blood ryicuedy459 mm[Hg]Aida Rashidcielo TRAFFIC SURVEY TECHNICIAN Work Phone: [facility] Encounters Encounter DateEncounter TypeCare ProviderFacilityStart: 04-25-2025 End: 66-69-2490vhlqjhawgdNNRGNCIWK NO [facility] Medicine ClydeStart: 04-25-2025 End: 42-58-0674Cltqewf encounter procedureLisa Lenora Chaves TRAFFIC SURVEY TECHNICIAN-[facility] [place] Work Phone: Start: 04-09-2025 End: 48-24-9740jgfgbudkroHPBNXJVYN NO [facility] Work Phone: Start: 04-09-2025 End: 10-62-7381Pbnmrlq encounter procedureLisa Lenora Chaves TRAFFIC SURVEY TECHNICIAN--[facility] [place] Work Phone: Start: 02-23-2025 End: 98-15-4121Vdafieeu [facility] [address] Work Phone: start: 02-23-2025 End: 71-25-2029rrljywhdpqCQGVVTMCK NO [facility] Work Phone: Start: 02-12-2025 End: 05-49-4757Ugftvb flowsheetAida Chaves TRAFFIC SURVEY TECHNICIAN Work Phone: [facility] CWM FMStart: 02-12-2025 End: 01-53-0945Zuqike flowsheetAida Chaves TRAFFIC SURVEY TECHNICIAN Work Phone: [facility] CWM FMStart: 02-12-2025 End: 22-92-4121Ahvinj outpatient visit 25 minutesLisa Chaves TRAFFIC SURVEY TECHNICIAN Work Phone: [facility] CWM FMComment on above:Anxiety and depression (Primary Dx); MARCK (obstructive sleep apnea); Primary hypertension ; Gastroesophageal reflux disease, unspecified whether esophagitis present; Edema, lower extremity; Pre-diabetes; Morbid (severe) obesity due to excess calories ([facility]-HCC); Mixed hyperlipidemia ; Primary insomniaStart: 02-12-2025 End: 98-38-0041wgssrztrevLBOF GAYHOLZNot AvailableStart: 01-22-2025 End: 73-58-5418IrjjxeSgoi Anastacio TRAFFIC SURVEY TECHNICIAN Work Phone: [facility] CWM FMComment on above:Mixed hyperlipidemia (Primary Dx)Start: 01-20-2025 End: 40-37-0367Bkcrrcndq Result EncounterLisa Anastacio TRAFFIC SURVEY TECHNICIAN Work Phone: [facility] External Department UnsolicitedStart: 01-20-2025 End: 58-95-6877Watwhwhdb Result EncounterLisa Anastacio TRAFFIC SURVEY TECHNICIAN Work Phone: [facility] External Department UnsolicitedStart: 01-19-2025 End: 43-52-2746Otgjcjpnl encounterMarchai Wooten MD Work Phone: [facility] CWM FMStart: 11-30-2024 End: 31-55-2515FhtiisKqkm Aichholz TRAFFIC SURVEY TECHNICIAN Work Phone: NOQE CWM FMComment on above:Mucocele of mouth (Primary Dx)Start: 11-02-2024 End: 66-91-9682OrgtlqBqhy Aichholz TRAFFIC SURVEY TECHNICIAN Work Phone: [facility] CWM FMComment on above:Breast abscess (Primary Dx)Start: 09-20-2024 End: 74-30-1244Ldafppm encounter procedureCorey Acosta DO Work Phone: [facility] Work Phone: Start: 09-20-2024 End: 40-32-8227Oserqcxg preventive med est patient 40-64yrsCorey Acosta DO Work Phone: [facility] BCP OBComment on above:Well woman exam with routine gynecological exam; Breast cancer screening by mammogramStart: 09-20-2024 End: 55-42-4886vuvsoggljmQSXYN FAZIONot AvailableStart: 09-19-2024 End: 92-20-8423zqfehjsqvfYABKOKL G TESMONDNot AvailableStart: 08-30-2024 End: 13-88-7387Dlxxle flowsheetLisa Aichholz TRAFFIC SURVEY TECHNICIAN Work Phone: NOSQ CWM FMStart: 08-30-2024 End: 12-20-8954Reidwi flowsheetLisa Aichholz TRAFFIC SURVEY TECHNICIAN Work Phone: [facility] CWM FMStart: 08-30-2024 End: 06-75-2678ujxeifyndjTRFY AICHHOLZNot AvailableStart: 08-30-2024 End: 36-60-3263Uevnew outpatient visit 25 minutesLisa Waynez TRAFFIC SURVEY TECHNICIAN Work Phone: [facility] CWM FMComment on above:Primary hypertension (CMS/HCC) (Primary Dx); Secondary pulmonary arterial hypertension (CMS/HCC); Morbid (severe) obesity due to excess calories (CMS/HCC); Body mass index (BMI) 50.0-59.9, adult (CMS/HCC); Primary insomnia; MARCK (obstructive sleep apnea); Gastroesophageal reflux disease, unspecified whether esophagitis present; Edema, lower extremity; Pre-diabetes; Anxiety and depression (CMS/HCC); Metabolic syndrome; Mixed hyperlipidemia (CMS/HCC)Start: 08-27-2024 End: 17-24-5341Ajpuurkfp encounterLisa Aichholz TRAFFIC SURVEY TECHNICIAN Work Phone: [facility] CWM FMStart: 08-26-2024 End: 19-69-4767UdhdmoEyrt Aichholz TRAFFIC SURVEY TECHNICIAN Work Phone: NOGH CWM FMComment on above:Gastro-esophageal reflux disease without esophagitisStart: 07-20-2024 End: 34-16-6080EqrwxiMuqv Aichholz TRAFFIC SURVEY TECHNICIAN Work Phone: NOWG CWM FMComment on above:Dental infection (Primary Dx)Start: 07-03-2024 End: 72-68-2415Maverarnr encounterMarc Naderer MD Work Phone: NONH CWM FMStart: 06-26-2024 End: 41-02-6747OpbfpuAscg Aichholz TRAFFIC SURVEY TECHNICIAN Work Phone: [facility] CWM FMComment on above:Pre-diabetesStart: 06-21-2024 End: 84-10-8787UhzbreGjbi Aichholz TRAFFIC SURVEY TECHNICIAN Work Phone: [facility] CWM FMComment on above:Pre-diabetesStart: 04-25-2024 End: 53-07-0100FjqvlwJmjp Aichholz TRAFFIC SURVEY TECHNICIAN Work Phone: [facility] CWM FMComment on above:Nausea (Primary Dx)Start: 04-03-2024 End: 88-03-0244Gfpyye outpatient visit 25 minutesLisa Waynez TRAFFIC SURVEY TECHNICIAN Work Phone: [facility] CWM FMComment on above:MARCK (obstructive sleep apnea) (Primary Dx); Primary hypertension (CMS/HCC); Edema, lower extremity; BMI 50.0-59.9, adult (CMS/HCC); Anxiety and depression (CMS/HCC); Essential (primary) hypertension (CMS/HCC); Essential hypertension (CMS/HCC); Anxiety disorder, unspecified; Anxiety state (CMS/HCC); Gastro-esophageal reflux disease without esophagitis; Insomnia, unspecifiedStart: 04-03-2024 End: 51-86-1256Fuffbw OnlyLisa Aichholz TRAFFIC SURVEY TECHNICIAN Work Phone: [facility] CWM FMComment on above:Pre-diabetes (Primary Dx) Start: 03-13-2024 End: 06-78-9431QuvixzEwwy Aichholz TRAFFIC SURVEY TECHNICIAN Work Phone: [facility] CWM FMComment on above:Pre-diabetes (Primary Dx); BMI 50.0-59.9, adult (CMS/HCC); Metabolic syndromeStart: 02-25-2024 End: 65-26-4000Sdtjeh Gustavo Wooten MD Work Phone: [facility] CWM FMComment on above:Anal or rectal pain (Primary Dx)Start: 02-23-2024 End: 73-28-6837Afgkdm flowsheetJonatan Laird DO Work Phone: [facility] GENSStart: 02-23-2024 End: 54-63-0344Acnpvi flowsheetJonatan Laird DO Work Phone: [facility]ENSStart: 02-23-2024 End: 69-90-0549Pltncq outpatient new 30 minutesKyalva Laird DO Work Phone: [facility] GENSComment on above:Encounter for diagnostic colonoscopy due to change in bowel habits (Primary Dx); Hemorrhoids, unspecified hemorrhoid typeStart: 02-23-2024 End: 79-31-6553ytudvsxapxMEEN DUCKETTNot AvailableStart: 02-21-2024 End: 51-29-6386Llucce outpatient visit 15 minutesLisa Chaves TRAFFIC SURVEY TECHNICIAN Work Phone: [facility] FMComment on above:Anal or rectal pain (Primary Dx); BMI 50.0-59.9, adult (CMS/[facility]); Chronic rectal painStart: 02-21-2024 End: 50-28-5105gofwwbpmdjBYKJ AICHHOLZNot AvailableStart: 02-21-2024 End: 97-00-1774Okbnil flowsheetLisa Joehholz TRAFFIC SURVEY TECHNICIAN Work Phone: NOUF CW FMStart: 02-21-2024 End: 94-39-6986Ysyfkq flowsheetLisa Joehholz TRAFFIC SURVEY TECHNICIAN Work Phone: [facility] CW FMStart: 11-15-2023 End: 17-16-8541Csaamkrwh Result EncounterGeneric External Data ProviderNOMS External Department UnsolicitedStart: 11-15-2023 End: 89-67-5568Udqfojfhz Result EncounterGeneric External Data ProviderNOMS External Department UnsolicitedStart: 11-27-2022 End: 34-92-7416dnimprrapvUSP LISA AICHHOLZFacility:E5Tmhtx: 11-17-2022 End: 74-33-8438cdjptdsfcuNAK AIDA AICHHOLZFacility:V1Gjotf: 57-20-1901Vijgyvera for preprocedural laboratory examinationDR PHIL SHANE .[facility] Start: 09-11-2022 End: 54-20-9788bnpgswdenpBGW AIDA AICHHOLZFacility:W7Wgucc: 09-09-2022 End: 98-43-4769fnxbudejdeLZP AIDA AICHHOLZFacility:Q2Gwmxf: 09-09-2022 End: 23-43-4438Lyobxoqpz for preprocedural laboratory examinationCNP AIDA AICHHOLZFacility:L4Ogwsx: 19-60-6580Phswoylyj for preprocedural cardiovascular examinationDR HPIL SHANE .[facility] Hospitaltart: 08-28-2022 End: 70-84-4437tplnvodjkxCOJ AIDA AICHHOLZFacility:W6Iolop: 08-28-2022 End: 50-75-1163Nkzuqizcx for preprocedural cardiovascular examinationCNP AIDA AICHHOLZFacility:C6Datff: 07-08-2022 End: 48-54-0448jcpfgutswaEEK AIDA AICHHOLZFacility:E7Tklzk: 05-21-2022 End: 15-46-9212gfxbumcyaaIYH AIDA AICHHOLZFacility:L8Nihpm: 05-13-2022 End: 00-20-9242ibzojiuaniSPS AIDA AICHHOLZFacility:W9Frbwv: 04-30-2022 End: 37-29-1340tcnqfetkorFLAYVJ DEMARIO .Facility:K2Zgjop: 01-12-2022 End: 36-32-7210inzxqvngeyCVQ AIDA AICHHOLZFacility:H1 Procedures DateProcedureProcedure DetailPerforming ClinicianStart: 53-97-5206DGJ HEMOGLOBIN S3XNzly Aichholz TRAFFIC SURVEY TECHNICIAN Work Phone: Start: 93-29-9147Hnsicnhuau glycosylated g0aGeqn Aichholz TRAFFIC SURVEY TECHNICIAN Work Phone: Start: 34-69-7620SkvwagiqrijHbbp Aichholz TRAFFIC SURVEY TECHNICIAN Work Phone: Start: 22-06-0353NY TOMOSYNTHESIS SCREENING BIGeneric External Data ProviderStart: 57-14-2468NxivwwpuxkzJgkl Aictyrese TRAFFIC SURVEY TECHNICIAN Work Phone: Start: 42-71-3312Uoon cerv/vag auto thin layer prep mnl screenCorey Acosta DO Work Phone: Plan of Treatment DateCare ActivityDetailAuthorStart: 04-23-8759Klibmumyv for malignant neoplasm of colonNOMS HealthcareStart: 09-26-2025 End: 52-65-2574Axrwugr encounter procedureNOMS BCP OBStart: 87-57-4486Irvfcbmbk for malignant neoplasm of cervixNOMS HealthcareStart: 94-80-3707Ifbuieghg vaccinationInfluenza Vaccine (#1)[facility] HealthcareComment on above:Postponed from 03/05/2024 (Patient Does Not Have Time)Start: 03-25-2025 End: 44-42-4472Yyibvim aminotransferase [Enzymatic activity/volume] in Serum or PlasmaALT Lab Routine Mixed hyperlipidemia Expected: 03/25/2025 (Approximate), Expires: 01/22/2026N[facility] HealthcareComment on above:Expected: 03/25/2025 (Approximate), Expires: 01/22/2026Start: 03-25-2025 End: 92-46-8739Eqpbjjfwq aminotransferase [Enzymatic activity/volume] in Serum or PlasmaAST Lab Routine Mixed hyperlipidemia Expected: 03/25/2025 (Approximate), Expires: 01/22/2026N[facility] HealthcareComment on above:Expected: 03/25/2025 (Approximate), Expires: 01/22/2026Start: 03-23-2025 End: 48-13-8940Okdcd 1996 panel - Serum or PlasmaLipid panel Lab Routine Mixed hyperlipidemia Expected: 03/23/2025 (Approximate), Expires: 01/22/2026[facility] Work Phone: Comment on above:Expected: 03/23/2025 (Approximate), Expires: 01/22/2026Start: 26-43-2875Odbspsozk vaccinationInfluenza Vaccine (#1) [facility] HealthcareStart: 02-12-2025 End: 22-88-7785Jwmmdbk encounter rikeuehki77/11/2025 11:30 AM EDT Office Visit NOMLan FERNANDEZ [address] [place] [address] Aida Chaves, [place] [address] [place] [id number] MARCK (obstructive sleep apnea) (Primary Dx); Primary hypertension ; Gastroesophageal reflux disease, unspecified whether esophagitis present; Edema, lower extremity; Pre-diabetes; Morbid (severe) obesity due to excess calories ([facility]-HCC); Mixed hyperlipidemia ; Anxiety and depressionNOMS [facility] FMComment on above:MARCK (obstructive sleep apnea) (Primary Dx); Primary hypertension ; Gastroesophageal reflux disease, unspecified whether esophagitis present; Edema, lower extremity; Pre-diabetes; Morbid (severe) obesity due to excess calories ([facility]); Mixed hyperlipidemia ; Anxiety and depressionStart: 01-29-2025 End: [id number] encounter ttubkkkam15/28/2025 4:00 PM EDT Office Visit [facility] [address] [place] [id number] Aida Chaves, [place] [address] [place] [id number] [facility] FMStart: [id number] for malignant neoplasm of breastMammogramNOIN HealthcareStart: 09-20-2024 End: [id number] Breast - bilateral ScreeningBilateral screening mammogram Imaging Routine Breast cancer screening by mammogram Expected: 09/20/2024 (Approximate), Expires: 11/20/2025[facility] Work Phone: comment on above:Expected: 09/20/2024 (Approximate), Expires: 11/20/2025Start: 09-20-2024 End: 22-22-9278Jznnjfc encounter nwradhepx58/ 1:00 PM EDT Office Visit [facility] [address] [place] [address] Phil Shane, DO [address] [place] [address] [facility] BCP OBStart: 08-30-2024 End: 25-46-4536IUK W Auto Differential panel - BloodCBC and differential Lab Routine Gastroesophageal reflux disease, unspecified whether esophagitis present Expected: 08/30/2024 (Approximate), Expires: 08/30/2025[facility] Work Phone: Comment on above:Expected: 08/30/2024 (Approximate), Expires: 08/30/2025Start: 08-30-2024 End: 58-45-1809Jorpxfbevcqyq metabolic 2000 panel - Serum or PlasmaComprehensive metabolic panel Lab Routine Morbid (severe) obesity due to excess calories (CMS/HCC) Primary hypertension (CMS/HCC) Gastroesophageal reflux disease, unspecified whether esophagitis present Edema, lower extremity Pre-diabetes Metabolic syndrome Mixed hyperlipidemia (CMS/HCC) Expected: 08/30/2024 (Approximate), Expires: 08/30/2025[facility] HealthcareComment on above:Expected: 08/30/2024 (Approximate), Expires: 08/30/2025Start: 08-30-2024 End: 50-07-3157Zdvsv 1996 panel - Serum or PlasmaLipid panel Lab Routine Pre- diabetes Mixed hyperlipidemia (CMS/HCC) Expected: 08/30/2024 (Approximate), Expires: 08/30/2025[facility] HealthcareComment on above:Expected: 08/30/2024 (Approximate), Expires: 08/30/2025Start: 08-30-2024 End: 22-01-0600Jnuazkjwvkxb/Creatinine panel in random UrineMicroalbumin / creatinine, urine ratio Lab Routine Primary hypertension (CMS/HCC) Pre-diabetes Expected: 08/30/2024 (Approximate), Expires: 08/30/2025[facility] HealthcareComment on above:Expected: 08/30/2024 (Approximate), Expires: 08/30/2025Start: 08-30-2024 End: 76-75-4538Uhdwxcaetag [Units/volume] in Serum or PlasmaTSH Lab Routine Anxiety and depression (CMS/HCC) Expected: 08/30/2024 (Approximate), Expires: 08/30/2025[facility] HealthcareComment on above:Expected: 08/30/2024 (Approximate), Expires: 08/30/2025Start: 08-30-2024 End: 79-63-9670Nwaaxtpidr complete panel - UrineUrinalysis with reflex microscopic (clean catch) Lab Routine Primary hypertension (CMS/HCC) Pre-diab etes Expected: 08/30/2024 (Approximate), Expires: 08/30/2025[facility] Comment on above:Expected: 08/30/2024 (Approximate), Expires: 08/30/2025Start: 04-03-2024 End: 35-86-4116Ysrlcbe encounter bkqrqosql52/30/2024 3:40 PM EDT Office Visit [facility] [address] [place] [phone] Aida Chaves, TRAFFIC SURVEY TECHNICIAN [address] [place] [address] [facility] FMStart: 04-03-2024 End: 31-29-9043Nljfg metabolic 1998 panel - Serum or PlasmaBasic metabolic panel Lab Routine Pre-diabetes Expected: 04/03/2024 (Approximate), Expires: 04/03/[address] [place] [address] Work Phone: Comment on above:Expected: 04/03/2024 (Approximate), Expires: 04/03/2025Start: 04-03-2024 End: 58-49-0344Rcmtfsqolr A1c/Hemoglobin.total in BloodHemoglobin A1c Lab Routine Pre-diabetes Expected: 04/03/2024 (Approximate), Expires: 04/03/2025[facility] HealthcareComment on above:Expected: 04/03/2024 (Approximate), Expires: 04/03/2025Start: 71-35-9556Tsyrpqstr vaccinationInfluenza Vaccine (#1)[facility] HealthcareStart: 02-29-2024 End: 07-57-4976Bfcxluq encounter kkhufwhuc55/27/2024 10:00 AM EDT Procedure Visit [facility] EXT DEP Jonatan Laird, DO [address] [place] [phone] N[facility] EXT DEPStart: 02-23-2024 End: 11-61-8777Tluyqwi encounter mgloswbko39/21/2024 11:00 AM EDT Office Visit [facility] [address] [place] [address] LuisJonatan lantigua, DO [address] [place] [phone] [facility] BWM GENSComment on above: ArrivedStart: 02-21-2024 End: 51-66-5011Tfugaby encounter lamvibner69/19/2024 3:00 PM EDT Office Visit [facility] [address] [place] [address] Aida Chaves, ROCKY [address] [place] [address] [facility] FMComment on above:ArrivedStart: 2000 Screening for malignant neoplasm of cervixPap SmearNOIN HealthcareStart: 00-18-2025Beniasopw for malignant neoplasm of colonNOIN HealthcareEKG 12 channel panelElyria Memorial HospitalMyoglobin [Mass/volume] in Serum or PlasmaElyria Memorial HospitalTHIN PREP TIS PAP AND HR HPV DNATHIN PREP TIS PAP AND HR HPV DNA Pathology and Cytology Routine Well woman exam with routine gynecological exam Ordered: 09/20/2024[facility] HealthcareComment on above: Ordered: 09/20/2024[facility] Immunizations Immunization DateImmunizationNotesCare RyylgmjjYcblwcld66-08-2008viqeshyke, seasonal, injectableLisa Aichholz TRAFFIC SURVEY TECHNICIAN Work Phone: [facility] CenterBvsoomukbu07-23-6181mjnabkbkp virus vaccine, unspecified formulationJef Wooten MD Work Phone: noBarnes-Jewish HospitalFpweklzrtl58-46-7875iojfgds and diphtheria toxoids, adsorbed, preservative free, for adult use (5 Lf of tetanus toxoid and 2 Lf of diphtheria toxoid)Aida Chaves TRAFFIC SURVEY TECHNICIAN Work Phone: [facility] CenterSohqvmzkxj45-51-6323yikqllavo, seasonal, injectableLisa Aichholz TRAFFIC SURVEY TECHNICIAN Work Phone: noBarnes-Jewish HospitalWhsdoddiqp29-20-5386rbafskxtg virus vaccine, unspecified formulationLisa Aichholz TRAFFIC SURVEY TECHNICIAN Work Phone: noBarnes-Jewish HospitalLumhcvlfch08-75-6941lkbgnvw and diphtheria toxoids, adsorbed, preservative free, for adult use (5 Lf of tetanus toxoid and 2 Lf of diphtheria toxoid)Aida Chaves TRAFFIC SURVEY TECHNICIAN Work Phone: [facility] Payers DatePayer CategoryPayerPolicy [id number] [id number] [id number] Health Insurance [id number] DESIGN PLUS CONTIGO [id number] 2022-[facility] [phone] [address] [place] [address].2.840.771423.1.13.693.2.7.3.1835[id number] [id number] 2.16.840.1.054319.3.57[id number] 2.16840.1.633662.3.579.[id number] 2.16.840.1.790140.3.579.2.74127-31-3804Kkxxdgq3391944 2.840.1.803185.3.579.2.8[id number] 2.16.840.1.580571.3.579.2.44259-95-8005Ukmpyuj0871882 2.16.840.1.318047.3.579.2.03099-56-3807Immkdpx7865673 2.16.840.1.873182.3.579.2.75172-84-8921Tkufhme0886115 2.16.840.1.518745.3.579.2.31545-62-4613Cjfasce5869931 2.16.840.1.986425.3.579.2.47312-89-4897Lzwtiij6870452 2.16840.1.492037.3.579.2.47726-04-8051Jaflthh64090178 2.16840.1.385636.3.579.2.212540-76-6363Ardseth5153347 2.840.1.626218.3.579.2.615117-98-3993Xqakqrs5376755 2.16.840.1.577549.3.579.2.990973-95-5560Gqozydq9316795 2.16.840.1.855252.3.579.2.155586-92-4320Tahisqf2073776 2.16.840.1.279110.3.579.2.986081-48-9574Nflaaxn3984219 2.16.840.1.634208.3.579.2.220703-35-1109Ayzckej7323496 2.16.840.1.177485.3.579.2.938041-16-2313Sndqvkl Health [id number] 31-89-6892Htxr-yegTyafhoc9585360 2.16.840.1.351877.3.579.2.593Unknown [id number] 36ig0j7h-c91r-1mw4-l[id number] w38lg68l-8k5u-8we7-81tz-[id number] 91ki86zq-670e-1qhc-bwpf-85lb3l25090bDgztrzj39852281 2.16.840.1.248860.3.579.2.531 Social History DateTypeDetailFacilityStart: 45-08-3291Wocmlfh smoking status NHISNever smoked tobaccoNOMS HealthcareStart: 62-25-7602Yurvhbd use and exposureSmokeless tobacco non-userNOMS HealthcareStart: 11-04-2023 End: 81-24-6404Cqggpwtam beverage intakeLifetime non-drinker (finding)[facility]S HealthcareStart: 08-01-2023 End: 96-99-3178Pthejvb of Social functionNOMS HealthcareStart: 08-01-2023 End: 60-17-0566Yktkfxwdscm, Afraid, Rape, and Kick questionnaire [HARK]NOMS HealthcareWithin the last year, have you been afraid of your partner or ex-partner?NoNOMS HealthcareAre you now , , , , never or living with a partner?MarriedNOMS HealthcareHow often to you have a drink containing alcohol?Monthly or lessNOMS HealthcareStart: 09-16-2022 How many standard drinks containing alcohol do you have on a typical day?Patient does not drinkNOMS HealthcareHow often do you have 6 or more drinks on 1 occasion?NeverNOMS HealthcareHow hard is it for you to pay for the very basics like food, housing, medical care, and heatingSomewhat hardNOMS HealthcareDo you feel stress - tense, restless, nervous, or anxious, or unable to sleep at night because yourmind is troubled all the time - these days [OSQ]To some extentNOMS Healthcare(I/We) worried whether (my/our) food would run out before (I/we) got money to buy more.Never trueNOIN HealthcareStart: 93-86-6819Aud assigned at birthNot on select specialty hospitalNOIN HealthcareHow often to you have a drink containing alcohol? 2-4 times a monthNOMS HealthcareHow many standard drinks containing alcohol do you have on a typical day?1 or 2NOMS HealthcareDo you feel stress - tense, restless, nervous, or anxious, or unable to sleep at night because yourmind is troubled all the time - these days [OSQ]Not at allNOMS HealthcareTobacco smoking status NHISUnknown if ever smokedSt. Charles Hospital Work Phone: SexFemale (finding)[facility] Start: 55-84-3398Sqj Assigned At [facility] Functional Status GtqmGogkidojqiTckaovLhionyle90-25-6351Wxhdi score [AUDIT-C]2 02/12/2025 11:11 AM Hernandez RaglandMoberly Regional Medical CenterUzhokitwvb96-79-9827Vci often to you have a drink containing alcohol?2-4 times a month 02/12/2025 11:11 AM CHERYL Garcia Generic 2- 4 times a monthMoberly Regional Medical CenterLepvpebnla23-91-8064Vrc many standard drinks containing alcohol do you have on a typical day?1 or 2 02/12/2025 11:11 AM EDT Mychart, Generic 1 or 2NOKLAHOMA [facility] [place] Tdzrbovaml26-04-6578Fjb often do you have 6 or more drinks on 1 occasion?Never 02/12/2025 11:11 AM EDT Mychart, Generic [facility] Clinical Notes 09-11-2022 to 04-09-2025 Note Date & VtqvYqxnMktemafq56-14-6999 Evaluation note* Diagnosis Onset Date Resolution Status Admit Date Bilateral lower extremity edema acuteOctober 2024 9:54amChest painacuteOctober 2024 9:54amGAD (generalized anxiety disorder)acuteOctober 2024 9:54amHypertension, essentialacuteOctober 2024 9:54amMajor depressive disorder, recurrent episode, mildacuteOctober 2024 9:54amMorbid obesity due to excess calories acuteOctober 2024 9:54amOSA (obstructive sleep apnea)acuteOctober 2024 9:54amAnemiaacuteOctober 2024 10:09amBilateral lower extremity edemaacute October 2024 10:09amChest painacuteOctober 2024 10:09amGAD (generalized anxiety disorder)acuteOctober 2024 10:09amHypertension, essentialacuteOctober 2024 10:09amMajor depressive disorder, recurrent episode, mildacuteOctober 2024 10:09amMorbid obesity due to excess caloriesacuteOctober 2024 10:09amOSA (obstructive sleep apnea)acuteOctober 2024 10:09am [facility] Work Phone: [phone]) 673-661108-11-2025 History of Present illness Narrative* Aida Chaves, ROCKY - 02/12/2025 11:30 AM EDT Images from the original note were not [...] being taken. 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 Hypertension This is [...] and sedentary lifestyle. Past treatments include beta blockers,calcium channel blockers, diuretics and ASIA inhibitors. The current treatment provides significant improvement. There are no compliance problems. There is no history of CAD/SD, heart failure or PVD. Anxiety Presents for [...] 01/12/22: TC 236 HDL 65 Trigs 106 [id number] HTN (hypertension) 08/02/2023 Insomnia 08/23/2023 Iron deficiency [...] feet frequently monitoring for open wounds , andalso recommend yearly eye exam. Pt should attempt [...] Morbid (severe) obesity due to excess calories ([facility]) Discussed with patient their BMI (actual, verses recommended). We have also discussed lifestyle modifications: attempts to perform physical activity as chronic conditions allow, also to monitor dietary intake: increasing protein/fruits/veggies and lowering carb intake (unless contraindicated). Limit sodas, juices, and sugary drinks. Has been taking Ozempic * Aida Chaves NP - 02/12/2025 6:45 AM EDTAssociated Problem(s): Anxiety and depression Current meds: buproprion, buspar, vraylar, lexapro, and trazodone Feels needs something more for her anxiety, I will increase her buspar to 20mg BID Fu in 8 weeks Recommend counseling, is going through work employer transition and insurance, will discuss at fu appt * Aida Chaves NP - 02/12/2025 6:44 AM EDTAssociated Problem(s): HLD (hyperlipidemia) On statin therapy Check labs yearly and prn dose changes * Aida Chaves NP - 02/12/2025 6:43 AM EDTAssociated Problem(s): Morbid (severe) obesity due to excess calories ([facility]) Discussed with patient their BMI (actual, verses recommended). We have also discussed lifestyle modifications: attempts to perform physical activity as chronic conditions allow, also to monitor dietary intake: increasing protein/fruits/veggies and lowering carb intake (unless contraindicated). Limit sodas, juices, and sugary drinks. Has been taking Ozempic * Aida Chaves NP - 02/12/2025 6:43 AM EDTAssociated Problem(s): Pre-diabetes Check blood sugars daily, notify if <70 or >200. Take medications (pills or insulin) as directed. Monitor for s/s of hypoglycemia (sweaty, dizziness, nausea, vomiting, or shakiness). Watch for increase in thirst, urination, or appetite. Inspect feet frequently monitoring for open wounds , andalso recommend yearly eye exam. Pt should attempt to remain as physically active as chronic conditions allow, as well as trying to follow a diet low in carbohydrates, and simple sugars. Could not tolerate metformin d/t diarrhea Current meds: ozempic, statin, aisa A1c: * Aida Chaves NP - 02/12/2025 6:42 AM EDTAssociated Problem(s): Edema, lower extremity Limit sodium, elevate legs, compression stockings Takes lasix as well * Aida Chaves NP - 02/12/2025 6:42 AM EDTAssociated Problem(s): Gastroesophageal reflux disease, unspecified whether esophagitis present Recommendations: freq small meals, nothing to eat or drink at least 2 hours prior to bed, limit caffeine, alcohol, as well as spicy foods Meds to limit or avoid if possible: NSAIDS Elevate HOB if possible Current meds: pantoprazole * Aida Chaves NP - 02/12/2025 6:42 AM EDTAssociated Problem(s): HTN (hypertension) Please check blood pressure daily and record DASH diet Limit caffeine Take medication as directed Contact office if chest pain, pressure, dizziness, shortness of breath, swelling legs Recommend slow position changes Current meds: carvedilol, asia/hydrochlorothiazide * Aida Chaves NP - 02/12/2025 6:42 AM EDTAssociated Problem(s): MARCK (obstructive sleep apnea) You have a diagnosis of obstructive sleep apnea. It is recommended that you wear your PAP device any time while in bed sleeping. Not using the PAP device can increase your risk of elevated/uncontrolled high blood pressure, atrial fibrillation, heart attack, stroke, or sudden . Never got PAP machine documented in this [facility]07-18-2025 Telephone encounter Note* Telephone Encounter - Jef Wooten MD - 01/19/2025 12:31 PM EDT Sent [facility] [id number] Miscellaneous Notes* Telephone Encounter - Jef Wooten MD - 01/19/2025 12:31 PM EDT Sent * Telephone Encounter - Christa Smith - 01/19/2025 11:54 AM EDT Patient would like an order for z pack sent to [facility]. an documented in this [facility]07-18-2025 Telephone encounter Note* Telephone Encounter - Christa Smith - 01/19/2025 11:54 AM EDT Patient would like an order for z pack sent to [facility]. an [facility] CenterVmulnrsdkt39-33-2557 History of Present illness Narrative* Aida Chaves NP - 11/30/2024 8:25 AM EDTAssociated Problem(s): Mucocele of mouth New dentures in the last 3 months, has a lump to lower gum line, very tender, increasing jaw pain, and called denist, cannot get in until: 12/12/24 I examined the area, it looks to be more of a mucocele, no purulent drainage noted Will cover with atb documented in this [facility]05-01-2025 History of Present illness Narrative* Aida Chaves NP - 11/02/2024 10:04 AM EDTAssociated Problem(s): Breast abscess Right breast, recurrent, gets drainage out, no fever, chills, documented in this [facility]05-01-2025 Telephone encounter Note* Telephone Encounter - Aida Chaves NP - 11/02/2024 9:59 AM EDT Warm compress, alert provider if not better or resolved with this [facility] CenterLcgexxeqcp74-22-7308 Miscellaneous Notes* Telephone Encounter - Aida Chaevs NP - 11/02/2024 9:59 AM EDT Warm compress, alert provider if not better or resolved with this documented in this [facility]03-19-2025 History of Present illness Narrative* Karyn Linares, RN DOCUMENTATION SPECIALIST - 09/20/2024 1:00 PM EDT Reason for Appointment: Patient ID: Laverne Roca [...] without aura without status migrainosus, not intractable ([facility]) 06/17/2023 Anxiety and depression ([facility]) 06/29/2023 Edema, lower extremity 07/02/2023 Screening mammogram for breast cancer 08/02/2023 Body mass index (BMI) 50.0-59.9, adult ([facility]) 08/02/2023 HLD (hyperlipidemia) ([facility]) 08/02/2023 HTN (hypertension) ([facility]) 08/02/2023 Abnormal weight gain 08/02/2023 MARCK (obstructive sleep apnea) 08/23/2023 Insomnia 08/23/2023 Tricuspid regurgitation 08/23/2023 Secondary pulmonary arterial hypertension ([facility]) 08/23/2023 Gastroesophageal reflux disease, unspecified whether esophagitis present 08/23/2023 Diarrhea 10/13/2023 Family history of premature CAD 11/04/2023 Pre-diabetes 11/04/2023 Other hemorrhoids 02/09/2024 Anal or rectal pain 02/21/2024 Metabolic syndrome 03/13/2024 Nausea 04/25/2024 Dental infection 07/20/2024 Morbid (severe) obesity due to excess calories ([facility]) 08/30/2024 Resolved Ambulatory Problems Diagnosis Date Noted URI, acute 10/13/2023 Elevated glucose 10/21/2023 Chronic rectal pain 02/21/2024 Past Medical History: Diagnosis Date Allergic rhinitis Chest pain Family history of thyroid disease Hemorrhoids Iron deficiency anemia Lower extremity edema 08/02/2023 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[facility]) 08/23/2023 HISTORY PAST MEDICAL HISTORY SOCIAL HISTORY Past Medical History: Diagnosis Date Allergic rhinitis Anxiety and depression ([facility]) 06/29/2023 Chest pain Chronic migraine without aura without status migrainosus, not intractable ([facility]) 06/17/2023 Edema, lower extremity 07/02/2023 Family history of thyroid disease Gastroesophageal reflux disease, unspecified whether esophagitis present 08/23/2023 Hemorrhoids HLD (hyperlipidemia) ([facility]) 08/02/2023 labs: 01/12/22: TC 236 HDL 65 Trigs 106 [id number] HTN (hypertension) ([facility]) 08/02/2023 Insomnia 08/23/2023 Iron deficiency anemia Lower extremity edema 08/02/2023 MARCK (obstructive sleep apnea) 08/23/2023 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[facility]) 08/23/2023 Tricuspid regurgitation 08/23/2023 Social History Tobacco [...] nursing note reviewed. Exam conducted with a paving block cutter present. Vitals: Estimated body mass index is 47.9 kg/m as calculated from the following: Height as of 24: 5' 3 . Weight as of this [...] of: Phil Shane DO documented in this encounterMoberly Regional Medical CenterXatqeqeefo02-45-8964 History of Present illness Narrative* CYNTHIA LOBO - 08/30/2024 1:40 PM EST Right forearm pain-sunburn pain when being touched started last night. * Aida Chaves NP - 08/30/2024 1:40 PM EST Images from the original note were not [...] include no chest pain, malaise/fatigue, palpitations, peripheral edemaor shortness of breath. There are no associated agents to hypertension. Risk factors for coronary artery disease include diabetes mellitus, dyslipidemia, obesity, sedentary lifestyle and post-menopausal state. Past treatments include beta blockers, calcium channel blockers, angiotensin blockers, diuretics and ASIA inhibitors. The current treatment provides significant improvement. There are no compliance problems. There is no history of kidney disease, CAD/SD, heart failure or left ventricular hypertrophy. Anxiety Presents for follow-up visit. Symptoms include excessive worry, irritability and nervous/anxious behavior. Patient reports no chest pain, decreased concentration, depressed mood, dizziness, muscle tension, nausea, palpitations, panic, shortness of breath or suicidal ideas. Symptoms occur occasionally. The severity of symptoms is mild. The patient sleeps 10 hours per night. The quality of sleep isgood. Nighttime awakenings: several. Compliance with medications is 76-100%. Depression Visit Type: follow-up Patient presents with the following symptoms: excessive worry, irritability and nervousness/anxiety. Patient is not experiencing: anhedonia, decreased concentration, depressed mood, fatigue, feelings of worthlessness, muscle tension, palpitations, panic, shortness of breath, suicidal ideas, suicidalplanning, thoughts of , weight gain and weight [...] Diagnosis Date Allergic rhinitis Anxiety and depression ([facility]) 06/29/2023 Chest pain Chronic migraine without aura without status migrainosus, not intractable ([facility]) 06/17/2023 Edema, lower extremity 07/02/2023 Family history of thyroid disease Gastroesophageal reflux disease, unspecified whether esophagitis present 08/23/2023 Hemorrhoids HLD (hyperlipidemia) ([facility]) 08/02/2023 labs: 01/12/22: TC 236 HDL 65 Trigs 106 [id number] HTN (hypertension) ([facility]) 08/02/2023 Insomnia 08/23/2023 Iron deficiency anemia Lower extremity edema 08/02/2023 MARCK (obstructive sleep apnea) 08/23/2023 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[facility]) 08/23/2023 Tricuspid regurgitation 08/23/2023 Past Surgical History: [...] Items Addressed This Visit Anxiety and depression ([facility]) PHQ 9=3 JESUS 7=5 Current meds: xanax [...] panel Body mass index (BMI) 50.0-59.9, adult ([facility]) HLD (hyperlipidemia) ([facility]) Check labs Relevant Orders Comprehensive metabolic panel Lipid panel HTN (hypertension) ([facility]) - Primary Please check blood pressure daily [...] taking Ozempic Relevant Orders Comprehensive metabolic panel * Aida Chaves NP - 08/30/2024 7:09 AM ESTAssociated Problem(s): Metabolic syndrome Continue risk factor modification, treatment of chronic conditions * Aida Chaves NP - 08/30/2024 7:09 AM ESTAssociated Problem(s): HLD (hyperlipidemia) ([facility]) Check labs * Aida Chaves NP - 08/30/2024 7:07 AM ESTAssociated Problem(s): Anxiety and depression ([facility]) PHQ 9=3 JESUS 7=5 Current meds: xanax prn, buproprion, buspar, vraylar, lexapro, and trazodone * Aida Chaves NP - 08/30/2024 7:06 AM ESTAssociated Problem(s): Pre-diabetes Dose take ozempic for her diabetes, cannot tolerate metformin d/t diarrhea Doing well with weight loss A1c 5.2 * Aida Chaves NP - 08/30/2024 7:05 AM ESTAssociated Problem(s): Morbid (severe) obesity due to excess calories ([facility]) Discussed with patient their BMI (actual, verses recommended). We have also discussed lifestyle modifications: attempts to perform physical activity as chronic conditions allow, also to monitor dietary intake: increasing protein/fruits/veggies and lowering carb intake (unless contraindicated). Limit sodas, juices, and sugary drinks. Has been taking Ozempic * Aida Chaves NP - 08/30/2024 7:05 AM ESTAssociated Problem(s): Edema, lower extremity Limit sodium, elevate legs, compression stockings Takes lasix as well * Aida Chaves NP - 08/30/2024 7:04 AM ESTAssociated Problem(s): Gastroesophageal reflux disease, unspecified whether esophagitis present Recommendations: freq small meals, nothing to eat or drink at least 2 hours prior to bed, limit caffeine, alcohol, as well as spicy foods Meds to limit or avoid if possible: NSAIDS Elevate HOB if possible Current meds: pantoprazole * Aida Chaves NP - 08/30/2024 7:04 AM ESTAssociated Problem(s): Secondary pulmonary arterial hypertension (CMS/HCC) Per ECHO findings * Aida Chaves NP - 08/30/2024 7:04 AM ESTAssociated Problem(s): HTN (hypertension) (CMS/HCC) Please check blood pressure daily and record DASH diet Limit caffeine Take medication as directed Contact office if chest pain, pressure, dizziness, shortness of breath, swelling legs Recommend slow position changes Current meds: carvedilol, asia/hydrochlorothiazide * Aida Chaves NP - 08/30/2024 7:03 AM ESTAssociated Problem(s): MARCK (obstructive sleep apnea) You have a diagnosis of obstructive sleep apnea. It is recommended that you wear your PAP device any time while in bed sleeping. Not using the PAP device can increase your risk of elevated/uncontrolled high blood pressure, atrial fibrillation, heart attack, stroke, or sudden . Never got PAP machine, however has lost 50 pounds * Aida Chaves NP - 08/30/2024 7:03 AM ESTAssociated Problem(s): Insomnia Takes trazodone at HS documented in this [facility]02-26-2025 Instructions* Patient Instructions* Aida Chaves NP - 08/30/2024 1:40 PM EST Get labs done: fasting Keep up the great work on your weight loss documented in this [facility]02-23-2025 Telephone encounter Note* Telephone Encounter - Aida Chaves NP - 08/27/2024 7:13 PM EST Needs a fu appt in the next few weeks [place] [id number] Miscellaneous Notes* Telephone Encounter - Aida Chaves NP - 08/27/2024 7:13 PM EST Needs a fu appt in the next few weeks [place] documented in this [facility]12-30-2024 Telephone encounter Note* Telephone Encounter - LAVERNE ROCA - 07/03/2024 10:16 AM EST [facility] not have [facility]em[facility] in stock, can you resend 90 day script for [facility]pic to [facility] [place]. clm [facility] [id number] Miscellaneous Notes* Telephone Encounter - LAVERNE ROCA - 07/03/2024 10:16 AM EST [facility] not have [facility] in stock, can you resend 90 day script for [facility]empic to [facility] in [place]. clm documented in this encounterM[facility] [id number] History of Present illness Narrative* Aida Chaves NP - 04/03/2024 4:56 PM EDTAssociated Problem(s): Anxiety and depression (CMS/HCC) Stable no med dose changes Needs a refill on xanax OARRS reviewed * Aida Chaves NP - 04/03/2024 4:55 PM EDTAssociated Problem(s): Pre-diabetes Weight has stabilized, will trial an increase ozempic to 1mg * Aida Chaves NP - 04/03/2024 4:55 PM EDTAssociated Problem(s): Edema, lower extremity stable * Aida Chaves NP - 04/03/2024 4:54 PM EDTAssociated Problem(s): HTN (hypertension) (CMS/HCC) At goal , no med dose chagnes * Aida Chaves NP - 04/03/2024 4:54 PM EDTAssociated Problem(s): MARCK (obstructive sleep apnea) Needs titration study * Aida Chaves NP - 04/03/2024 3:40 PM EDT Images from the original note were not [...] sedentary lifestyle. Past treatments include beta blockers andcalcium channel blockers. The current treatment provides significant improvement. There are no compliance problems. There is no history of CAD/SD. Diabetes She has type 2 diabetes mellitus. Her disease course has been improving. Hypoglycemia symptoms include nervousness/anxiousness. Pertinent negatives for hypoglycemia include no dizziness, headaches, seizures or tremors. Associated symptoms include polydipsia. Pertinent negatives for diabetes includeno blurred vision, no chest pain, no fatigue, no foot paresthesias, no polyphagia, no polyuria and no visual change. There are no hypoglycemic complications. Symptoms are stable. There are no diabetic complications. Risk factors for coronary artery disease include diabetes mellitus, dyslipidemia, hypertension, obesity and sedentary lifestyle. Current diabetic treatments: ozempic. An ASIA inhibitor/ angiotensin II receptor shanna is being taken. 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 SUBJECTIVE: MEDICATIONS: Current [...] Diagnosis Date Allergic rhinitis Anxiety and depression (CMS/HCC) 06/29/2023 Chest pain Chronic migraine without aura without status migrainosus, not intractable ([facility] 06/17/2023 Edema, lower extremity 07/02/2023 Family history of thyroid disease Gastroesophageal reflux disease, unspecified whether esophagitis present 08/23/2023 Hemorrhoids HLD (hyperlipidemia) ([facility]) 08/02/2023 labs: 01/12/22: TC 236 HDL 65 Trigs 106 [id number] HTN (hypertension) ([facility]) 08/02/2023 Insomnia 08/23/2023 Iron deficiency anemia Lower extremity edema 08/02/2023 MARCK (obstructive sleep apnea) 08/23/2023 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[facility]) 08/23/2023 Tricuspid regurgitation 08/23/2023 Past Surgical History: [...] (Desyrel) 150 MG tablet documented in this encounterMoberly [facility] [id number] History of Present illness Narrative* Jonatan Laird DO - 02/23/2024 11:00 AM EDT General Surgery H&P Laverne Roca 1980 Laverne Roca is a 43 y.o. female presents with chief complaint of Hemorrhoids (Pt presents today for hemorrhoids. She states that she has had them before, but this time she has had them for about amonth. She states that at the beginning she noticed a lot of blood, but it has slowed down. Her PCPdid look at them and she believes there might be a fissure. She states that she would like to get a colonoscopy as well because she is due for one her father had Hx of colon cancer in his late 50s toearly 60s. She is currently taking a stool [...] Diagnosis Date Allergic rhinitis Anxiety and depression ([facility]) 06/29/2023 Chest pain Chronic migraine without aura without status migrainosus, not intractable ([facility]) 06/17/2023 Edema, lower extremity 07/02/2023 Family history of thyroid disease Gastroesophageal reflux disease, unspecified whether esophagitis present 08/23/2023 Hemorrhoids HLD (hyperlipidemia) ([facility]) 08/02/2023 labs: 01/12/22: TC 236 HDL 65 Trigs 106 [id number] HTN (hypertension) ([facility]) 08/02/2023 Insomnia 08/23/2023 Iron deficiency anemia Lower extremity edema 08/02/2023 MARCK (obstructive sleep apnea) 08/23/2023 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[facility]) 08/23/2023 Tricuspid regurgitation 08/23/2023 Social History Tobacco [...] and the need for someone to be withthem for the following 24 hrs post procedure. [...] as needed for discomfort/pain Thank you, Leonard Laird DO documented in this encounterMoberly [facility] Medical [id number] History of Present illness Narrative* Aida Chaves NP - 02/21/2024 4:13 PM EDTAssociated Problem(s): Anal or rectal pain Will refer to general surgeon, for further evaluation Possible internal hemorrhoids or anal fissure * CYNTHIA LOBO - 02/21/2024 3:00 PM EDT Hemorrhoid pain in the last month pt states she has been very uncomfortable sitting and can only find comfort when laying down. Pt has used suppositories and several OTC medications to help decrease size and relieve pain, but pt has had no changes * Aida Chaves NP - 02/21/2024 3:00 PM EDT Images from the original note were not included. Laverne Roca is a 43 y.o. female presents with chief complaint of No chief complaint on file. HPI: Rectal pain: over a month, worsening, initially some blood with wiping. Has used stool softeners aswell as steroid supp. Minimal relief, worse as [...] Diagnosis Date Allergic rhinitis Anxiety and depression (CMS/HCC) 06/29/2023 Chest pain Chronic migraine without aura without status migrainosus, not intractable ([facility]) 06/17/2023 Edema, lower extremity 07/02/2023 Family history of thyroid disease Gastroesophageal reflux disease, unspecified whether esophagitis present 08/23/2023 Hemorrhoids HLD (hyperlipidemia) ([facility]) 08/02/2023 labs: 01/12/22: TC 236 HDL 65 Trigs 106 [id number] HTN (hypertension) ([facility]) 08/02/2023 Insomnia 08/23/2023 Iron deficiency anemia Lower extremity edema 08/02/2023 MARCK (obstructive sleep apnea) 08/23/2023 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[facility]) 08/23/2023 Tricuspid regurgitation 08/23/2023 Past Surgical History: [...] RESOLVED: Chronic rectal pain documented in this encounterMoberly [facility] Medical [id number] NoteOP Note OPERATION DATE: 09/11/2022 PROCEDURE: Robotic assisted laparoscopic hysterectomy with bilateral salpingectomy with cystoscopy. PREOPERATIVE DIAGNOSIS: Cervical dysplasia, history of abnormal cervical cells, menorrhagia, dyspareunia, dysmenorrhea. POSTOPERATIVE DIAGNOSIS: Cervical dysplasia, history of abnormal cervical cells, menorrhagia, dyspareunia, dysmenorrhea. ANESTHESIA: General. SURGEON: Phil Shane D.O. KRAFT MILL OPERATOR: JOSH Gonzales URINE OUTPUT: Yellow and [...] awakened by Anesthesia first. Patient tolerated procedure well.[facility] [id number] NoteDISCHARGE SUMMARY NOTE DATE: 09/12/2022 PRIMARY DIAGNOSES: 1. [...] when pain free and no longer on narcotics.[facility] [id number] NoteOPERATIVE NOTE OPERATION DATE: 09/12/2022 PROCEDURE: Robotic assisted laparoscopic hysterectomy with bilateral salpingectomy with cystoscopy. PREOPERATIVE DIAGNOSIS: Cervical dysplasia, history of abnormal cervical cells, menorrhagia, dyspareunia, dysmenorrhea. POSTOPERATIVE DIAGNOSIS: Cervical dysplasia, history of abnormal cervical cells, menorrhagia, dyspareunia, dysmenorrhea. ANESTHESIA: General. SURGEON: Phil Shane D.O. KRAFT MILL OPERATOR: JOSH Gonzales URINE OUTPUT: Yellow and [...] awakened by Anesthesia first. Patient tolerated procedure well.[facility] HospitalEvaluation [facility]* Diagnosis Anxiety and depression ([facility])- Primary Screening mammogram for breast cancer BMI 50.0-59.9, adult ([facility]) Lower extremity edema Edema Primary hypertension (CMS/HCC) Unspecified essential hypertension Mixed hyperlipidemia (CMS/HCC) Mixed hyperlipidemia Abnormal weight gain Anxiety and depression (CMS/HCC)- Primary Family history of premature CAD Family history of ischemic heart disease Primary hypertension (CMS/HCC) Unspecified essential hypertension MARCK (obstructive sleep apnea) Obstructive sleep apnea (adult) (pediatric) Pre-diabetes Other abnormal glucose BMI 50.0-59.9, adult ([facility]) Primary hypertension (CMS/HCC)- Primary Unspecified essential hypertension Essential (primary) hypertension (CMS/HCC) Unspecified essential hypertension Essential hypertension (CMS/HCC) Unspecified essential hypertension Anxiety disorder, unspecified Anxiety state (CMS/HCC) Anxiety state, unspecified Anxiety and depression (CMS/[facility]) Edema, lower extremity Allergic rhinitis, unspecified Allergic rhinitis Allergic rhinitis, cause unspecified Gastro-esophageal reflux disease without esophagitis Insomnia, unspecified MARCK (obstructive sleep apnea) Obstructive sleep apnea (adult) (pediatric) Primary insomnia Persistent disorder of initiating or maintaining sleep Gastroesophageal reflux disease, unspecified whether esophagitis present Lower extremity edema Edema BMI 50.0-59.9, adult ([facility]) Pre-diabetes Other abnormal glucose Anal or rectal pain- Primary BMI 50.0-59.9, adult ([facility]/HCC) Chronic rectal pain Pre-diabetes- Primary Other abnormal glucose MARCK (obstructive sleep apnea) Obstructive sleep apnea (adult) (pediatric) Primary hypertension (CMS/HCC) Unspecified essential hypertension Edema, lower extremity BMI 50.0-59.9, adult ([facility]) Anxiety and depression (CMS/HCC) Essential (primary) hypertension (CMS/HCC) Unspecified essential hypertension Essential hypertension ([facility]) Unspecified essential hypertension Anxiety disorder, unspecified Anxiety state ([facility]) Anxiety state, unspecified Gastro-esophageal reflux disease without esophagitis Insomnia, unspecified Nausea- Primary Nausea alone documented in this encounter [facility]* Diagnosis Anal or rectal pain- Primary BMI 50.0-59.9, adult ([facility]) Chronic rectal pain documented in this encounter [facility]* Diagnosis Anxiety and depression ([facility])- Primary Screening mammogram for breast cancer BMI 50.0-59.9, adult ([facility]) Lower extremity edema Edema Primary hypertension ([facility]) Unspecified essential hypertension Mixed hyperlipidemia ([facility]) Mixed hyperlipidemia Abnormal weight gain Anxiety and depression ([facility])- Primary Family history of premature CAD Family history of ischemic heart disease Primary hypertension ([facility]) Unspecified essential hypertension MARCK (obstructive sleep apnea) Obstructive sleep apnea (adult) (pediatric) Pre-diabetes Other abnormal glucose BMI 50.0-59.9, adult ([facility]) Primary hypertension ([facility])- Primary Unspecified essential hypertension Essential (primary) hypertension ([facility]) Unspecified essential hypertension Essential hypertension ([facility]) Unspecified essential hypertension Anxiety disorder, unspecified Anxiety state ([facility]) Anxiety state, unspecified Anxiety and depression ([facility]) Edema, lower extremity Allergic rhinitis, unspecified Allergic rhinitis Allergic rhinitis, cause unspecified Gastro-esophageal reflux disease without esophagitis Insomnia, unspecified MARCK (obstructive sleep apnea) Obstructive sleep apnea (adult) (pediatric) Primary insomnia Persistent disorder of initiating or maintaining sleep Gastroesophageal reflux disease, unspecified whether esophagitis present Lower extremity edema Edema BMI 50.0-59.9, adult ([facility]) Pre-diabetes Other abnormal glucose Anal or rectal pain- Primary BMI 50.0-59.9, adult ([facility]) Chronic rectal pain Pre-diabetes- Primary Other abnormal glucose MARCK (obstructive sleep apnea) Obstructive sleep apnea (adult) (pediatric) Primary hypertension ([facility]) Unspecified essential hypertension Edema, lower extremity BMI 50.0-59.9, adult ([facility]) Anxiety and depression ([facility]) Essential (primary) hypertension ([facility]) Unspecified essential hypertension Essential hypertension ([facility]) Unspecified essential hypertension Anxiety disorder, unspecified Anxiety state ([facility]) Anxiety state, unspecified Gastro-esophageal reflux disease without [...] Primary Other abnormal glucose BMI 50.0-59.9, adult ([facility]) Metabolic syndrome Dysmetabolic Syndrome X documented in [facility] encounter [facility]* Diagnosis Pre-diabetes- Primary Other abnormal glucose documented in this encounter [facility]* Diagnosis MARCK (obstructive sleep apnea)- Primary Obstructive sleep apnea (adult) (pediatric) Primary hypertension ([facility]) Unspecified essential hypertension Edema, lower extremity BMI 50.0-59.9, adult ([facility]) Anxiety and depression ([facility]) Essential (primary) hypertension ([facility]) Unspecified essential hypertension Essential hypertension ([facility]) Unspecified essential hypertension Anxiety disorder, unspecified Anxiety state ([facility]) Anxiety state, unspecified Gastro-esophageal reflux disease without esophagitis Insomnia, unspecified documented in [facility] encounter [facility]* Diagnosis Anxiety and depression ([facility])- Primary Screening mammogram for breast cancer BMI 50.0-59.9, adult ([facility] Lower extremity edema Edema Primary hypertension ([facility]) Unspecified essential hypertension Mixed hyperlipidemia ([facility]) Mixed hyperlipidemia Abnormal weight gain Anxiety and depression ([facility])- Primary Family history of premature CAD Family history of ischemic heart disease Primary hypertension ([facility]) Unspecified essential hypertension MARCK (obstructive sleep apnea) Obstructive sleep apnea (adult) (pediatric) Pre-diabetes Other abnormal glucose BMI 50.0-59.9, adult ([facility]) Primary hypertension ([facility])- Primary Unspecified essential hypertension Essential (primary) hypertension ([facility]) Unspecified essential hypertension Essential hypertension ([facility]) Unspecified essential hypertension Anxiety disorder, unspecified Anxiety state ([facility]) Anxiety state, unspecified Anxiety and depression ([facility]) Edema, lower extremity Allergic rhinitis, unspecified Allergic rhinitis Allergic rhinitis, cause unspecified Gastro-esophageal reflux disease without esophagitis Insomnia, unspecified MARCK (obstructive sleep apnea) Obstructive sleep apnea (adult) (pediatric) Primary insomnia Persistent disorder of initiating or maintaining sleep Gastroesophageal reflux disease, unspecified whether esophagitis present Lower extremity edema Edema BMI 50.0-59.9, adult ([facility]) Pre-diabetes Other abnormal glucose Anal or rectal pain- Primary BMI 50.0-59.9, adult ([facility]) Chronic rectal pain Pre-diabetes- Primary Other abnormal glucose MARCK (obstructive sleep apnea) Obstructive sleep apnea (adult) (pediatric) Primary hypertension ([facility]) Unspecified essential hypertension Edema, lower extremity BMI 50.0-59.9, adult ([facility]) Anxiety and depression ([facility]) Essential (primary) hypertension ([facility]) Unspecified essential hypertension Essential hypertension ([facility]) Unspecified essential hypertension Anxiety disorder, unspecified Anxiety state ([facility]) Anxiety state, unspecified Gastro-esophageal reflux disease without esophagitis Insomnia, unspecified Pre-diabetes Other abnormal glucose documented in this encounter [facility] HealthcareEvaluation note* Diagnosis Anxiety and depression ([facility])- Primary Screening mammogram for breast cancer BMI 50.0-59.9, adult ([facility]) Lower extremity edema Edema Primary hypertension ([facility]) Unspecified essential hypertension Mixed hyperlipidemia ([facility] Mixed hyperlipidemia Abnormal weight gain Anxiety and depression ([facility])- Primary Family history of premature CAD Family history of ischemic heart disease Primary hypertension ([facility]) Unspecified essential hypertension MARCK (obstructive sleep apnea) Obstructive sleep apnea (adult) (pediatric) Pre-diabetes Other abnormal glucose BMI 50.0-59.9, adult ([facility]) Primary hypertension ([facility])- Primary Unspecified essential hypertension Essential (primary) hypertension ([facility]) Unspecified essential hypertension Essential hypertension ([facility]) Unspecified essential hypertension Anxiety disorder, unspecified Anxiety state ([facility]) Anxiety state, unspecified Anxiety and depression ([facility]) Edema, lower extremity Allergic rhinitis, unspecified Allergic rhinitis Allergic rhinitis, cause unspecified Gastro-esophageal reflux disease without esophagitis Insomnia, unspecified MARCK (obstructive sleep apnea) Obstructive sleep apnea (adult) (pediatric) Primary insomnia Persistent disorder of initiating or maintaining sleep Gastroesophageal reflux disease, unspecified whether esophagitis present Lower extremity edema Edema BMI 50.0-59.9, adult ([facility]) Pre-diabetes Other abnormal glucose Anal or rectal pain- Primary BMI 50.0-59.9, adult ([facility]) Chronic rectal pain Pre-diabetes- Primary Other abnormal glucose MARCK (obstructive sleep apnea) Obstructive sleep apnea (adult) (pediatric) Primary hypertension ([facility]) Unspecified essential hypertension Edema, lower extremity BMI 50.0-59.9, adult ([facility]) Anxiety and depression ([facility] Essential (primary) hypertension ([facility]) Unspecified essential hypertension Essential hypertension ([facility]) Unspecified essential hypertension Anxiety disorder, unspecified Anxiety state ([facility]) Anxiety state, unspecified Gastro-esophageal reflux disease without esophagitis Insomnia, unspecified Dental infection- Primary documented in this encounter [facility] HealthcareEvaluation note* Diagnosis Anxiety and depression ([facility])- Primary Screening mammogram for breast cancer BMI 50.0-59.9, adult ([facility] Lower extremity edema Edema Primary hypertension ([facility] Unspecified essential hypertension Mixed hyperlipidemia ([facility] Mixed hyperlipidemia Abnormal weight gain Anxiety and depression ([facility])- Primary Family history of premature CAD Family history of ischemic heart disease Primary hypertension ([facility]) Unspecified essential hypertension MARCK (obstructive sleep apnea) Obstructive sleep apnea (adult) (pediatric) Pre-diabetes Other abnormal glucose BMI 50.0-59.9, adult ([facility]) Primary hypertension ([facility])- Primary Unspecified essential hypertension Essential (primary) hypertension ([facility] Unspecified essential hypertension Essential hypertension ([facility]) Unspecified essential hypertension Anxiety disorder, unspecified Anxiety state ([facility]) Anxiety state, unspecified Anxiety and depression ([facility]) Edema, lower extremity Allergic rhinitis, unspecified Allergic rhinitis Allergic rhinitis, cause unspecified Gastro-esophageal reflux disease without esophagitis Insomnia, unspecified MARCK (obstructive sleep apnea) Obstructive sleep apnea (adult) (pediatric) Primary insomnia Persistent disorder of initiating or maintaining sleep Gastroesophageal reflux disease, unspecified whether esophagitis present Lower extremity edema Edema BMI 50.0-59.9, adult ([facility]) Pre-diabetes Other abnormal glucose Anal or rectal pain- Primary BMI 50.0-59.9, adult ([facility]) Chronic rectal pain Pre-diabetes- Primary Other abnormal glucose MARCK (obstructive sleep apnea) Obstructive sleep apnea (adult) (pediatric) Primary hypertension ([facility]) Unspecified essential hypertension Edema, lower extremity BMI 50.0-59.9, adult ([facility]) Anxiety and depression ([facility] Essential (primary) hypertension ([facility]) Unspecified essential hypertension Essential hypertension ([facility]) Unspecified essential hypertension Anxiety disorder, unspecified Anxiety state ([facility]) Anxiety state, unspecified Gastro-esophageal reflux disease without esophagitis Insomnia, unspecified Gastro-esophageal reflux disease without esophagitis documented in this encounter [facility] HealthcareEvaluation note* Diagnosis Anxiety and depression ([facility])- Primary Screening mammogram for breast cancer BMI 50.0-59.9, adult ([facility] Lower extremity edema Edema Primary hypertension ([facility] Unspecified essential hypertension Mixed hyperlipidemia ([facility] Mixed hyperlipidemia Abnormal weight gain Anxiety and depression ([facility])- Primary Family history of premature CAD Family history of ischemic heart disease Primary hypertension ([facility]) Unspecified essential hypertension MARCK (obstructive sleep apnea) Obstructive sleep apnea (adult) (pediatric) Pre-diabetes Other abnormal glucose BMI 50.0-59.9, adult ([facility]) Primary hypertension ([facility])- Primary Unspecified essential hypertension Essential (primary) hypertension ([facility] Unspecified essential hypertension Essential hypertension ([facility]) Unspecified essential hypertension Anxiety disorder, unspecified Anxiety state ([facility]) Anxiety state, unspecified Anxiety and depression ([facility]) Edema, lower extremity Allergic rhinitis, unspecified Allergic rhinitis Allergic rhinitis, cause unspecified Gastro-esophageal reflux disease without esophagitis Insomnia, unspecified MARCK (obstructive sleep apnea) Obstructive sleep apnea (adult) (pediatric) Primary insomnia Persistent disorder of initiating or maintaining sleep Gastroesophageal reflux disease, unspecified whether esophagitis present Lower extremity edema Edema BMI 50.0-59.9, adult ([facility]) Pre-diabetes Other abnormal glucose Anal or rectal pain- Primary BMI 50.0-59.9, adult ([facility]) Chronic rectal pain Pre-diabetes- Primary Other abnormal glucose MARCK (obstructive sleep apnea) Obstructive sleep apnea (adult) (pediatric) Primary hypertension ([facility]) Unspecified essential hypertension Edema, lower extremity BMI 50.0-59.9, adult ([facility]) Anxiety and depression ([facility] Essential (primary) hypertension ([facility]) Unspecified essential hypertension Essential hypertension ([facility]) Unspecified essential hypertension Anxiety disorder, unspecified Anxiety state ([facility]) Anxiety state, unspecified Gastro-esophageal reflux disease without esophagitis Insomnia, unspecified Primary hypertension ([facility])- Primary Unspecified essential hypertension Secondary pulmonary arterial hypertension ([facility]) Morbid (severe) obesity due to excess calories ([facility]) Body mass index (BMI) 50.0-59.9, adult ([facility]) Primary insomnia Persistent disorder of initiating or maintaining sleep MARCK (obstructive sleep apnea) Obstructive sleep apnea (adult) (pediatric) Gastroesophageal reflux disease, unspecified whether esophagitis present Edema, lower extremity Pre-diabetes Other abnormal glucose Anxiety and depression ([facility]) Metabolic syndrome Dysmetabolic Syndrome X Mixed hyperlipidemia ([facility]) Mixed hyperlipidemia documented in this encounter [facility] HealthcareEvaluation note* Diagnosis Anxiety and depression ([facility])- Primary Screening mammogram for breast cancer BMI 50.0-59.9, adult ([facility] Lower extremity edema Edema Primary hypertension ([facility]) Unspecified essential hypertension Mixed hyperlipidemia ([facility] Mixed hyperlipidemia Abnormal weight gain Anxiety and depression ([facility])- Primary Family history of premature CAD Family history of ischemic heart disease Primary hypertension ([facility]) Unspecified essential hypertension MARCK (obstructive sleep apnea) Obstructive sleep apnea (adult) (pediatric) Pre-diabetes Other abnormal glucose BMI 50.0-59.9, adult ([facility]) Primary hypertension ([facility])- Primary Unspecified essential hypertension Essential (primary) hypertension ([facility] Unspecified essential hypertension Essential hypertension ([facility]) Unspecified essential hypertension Anxiety disorder, unspecified Anxiety state ([facility]) Anxiety state, unspecified Anxiety and depression ([facility]) Edema, lower extremity Allergic rhinitis, unspecified Allergic rhinitis Allergic rhinitis, cause unspecified Gastro-esophageal reflux disease without esophagitis Insomnia, unspecified MARCK (obstructive sleep apnea) Obstructive sleep apnea (adult) (pediatric) Primary insomnia Persistent disorder of initiating or maintaining sleep Gastroesophageal reflux disease, unspecified whether esophagitis present Lower extremity edema Edema BMI 50.0-59.9, adult ([facility]) Pre-diabetes Other abnormal glucose Anal or rectal pain- Primary BMI 50.0-59.9, adult ([facility]) Chronic rectal pain Pre-diabetes- Primary Other abnormal glucose MARCK (obstructive sleep apnea) Obstructive sleep apnea (adult) (pediatric) Primary hypertension ([facility]) Unspecified essential hypertension Edema, lower extremity BMI 50.0-59.9, adult ([facility]) Anxiety and depression ([facility] Essential (primary) hypertension ([facility]) Unspecified essential hypertension Essential hypertension ([facility]) Unspecified essential hypertension Anxiety disorder, unspecified Anxiety state ([facility]) Anxiety state, unspecified Gastro-esophageal reflux disease without esophagitis Insomnia, unspecified Primary hypertension ([facility])- Primary Unspecified essential hypertension Secondary pulmonary arterial hypertension ([facility]) Morbid (severe) obesity due to excess calories ([facility]) Body mass index (BMI) 50.0-59.9, adult ([facility]) Primary insomnia Persistent disorder of initiating or maintaining sleep MARCK (obstructive sleep apnea) Obstructive sleep apnea (adult) (pediatric) Gastroesophageal reflux disease, unspecified whether esophagitis present Edema, lower extremity Pre-diabetes Other abnormal glucose Anxiety and depression ([facility]) Metabolic syndrome Dysmetabolic Syndrome X Mixed hyperlipidemia ([facility]) Mixed hyperlipidemia Well woman exam with routine gynecological exam Routine gynecological examination Breast cancer screening by mammogram documented in this encounter [facility] HealthcareEvaluation note* Diagnosis Anxiety and depression ([facility])- Primary Screening mammogram for breast cancer BMI 50.0-59.9, adult ([facility] Lower extremity edema Edema Primary hypertension ([facility] Unspecified essential hypertension Mixed hyperlipidemia ([facility] Mixed hyperlipidemia Abnormal weight gain Anxiety and depression ([facility])- Primary Family history of premature CAD Family history of ischemic heart disease Primary hypertension ([facility]) Unspecified essential hypertension MARCK (obstructive sleep apnea) Obstructive sleep apnea (adult) (pediatric) Pre-diabetes Other abnormal glucose BMI 50.0-59.9, adult ([facility]) Primary hypertension ([facility])- Primary Unspecified essential hypertension Essential (primary) hypertension ([facility] Unspecified essential hypertension Essential hypertension ([facility]) Unspecified essential hypertension Anxiety disorder, unspecified Anxiety state ([facility]) Anxiety state, unspecified Anxiety and depression ([facility]) Edema, lower extremity Allergic rhinitis, unspecified Allergic rhinitis Allergic rhinitis, cause unspecified Gastro-esophageal reflux disease without esophagitis Insomnia, unspecified MARCK (obstructive sleep apnea) Obstructive sleep apnea (adult) (pediatric) Primary insomnia Persistent disorder of initiating or maintaining sleep Gastroesophageal reflux disease, unspecified whether esophagitis present Lower extremity edema Edema BMI 50.0-59.9, adult ([facility]) Pre-diabetes Other abnormal glucose Anal or rectal pain- Primary BMI 50.0-59.9, adult ([facility]) Chronic rectal pain Pre-diabetes- Primary Other abnormal glucose MARCK (obstructive sleep apnea) Obstructive sleep apnea (adult) (pediatric) Primary hypertension ([facility]) Unspecified essential hypertension Edema, lower extremity BMI 50.0-59.9, adult ([facility]) Anxiety and depression ([facility] Essential (primary) hypertension ([facility]) Unspecified essential hypertension Essential hypertension ([facility]) Unspecified essential hypertension Anxiety disorder, unspecified Anxiety state ([facility]) Anxiety state, unspecified Gastro-esophageal reflux disease without esophagitis Insomnia, unspecified Primary hypertension ([facility])- Primary Unspecified essential hypertension Secondary pulmonary arterial hypertension ([facility]) Morbid (severe) obesity due to excess calories ([facility]) Body mass index (BMI) 50.0-59.9, adult ([facility]) Primary insomnia Persistent disorder of initiating or maintaining sleep MARCK (obstructive sleep apnea) Obstructive sleep apnea (adult) (pediatric) Gastroesophageal reflux disease, unspecified whether esophagitis present Edema, lower extremity Pre-diabetes Other abnormal glucose Anxiety and depression ([facility]) Metabolic syndrome Dysmetabolic Syndrome X Mixed hyperlipidemia ([facility]) Mixed hyperlipidemia Breast abscess- Primary Inflammatory disease of breast documented in this encounter [facility] HealthcareEvaluation note* Diagnosis Anxiety and depression ([facility])- Primary Screening mammogram for breast cancer BMI 50.0-59.9, adult ([facility] Lower extremity edema Edema Primary hypertension ([facility] Unspecified essential hypertension Mixed hyperlipidemia ([facility] Mixed hyperlipidemia Abnormal weight gain Anxiety and depression ([facility])- Primary Family history of premature CAD Family history of ischemic heart disease Primary hypertension ([facility]) Unspecified essential hypertension MARCK (obstructive sleep apnea) Obstructive sleep apnea (adult) (pediatric) Pre-diabetes Other abnormal glucose BMI 50.0-59.9, adult ([facility]) Primary hypertension ([facility])- Primary Unspecified essential hypertension Essential (primary) hypertension ([facility] Unspecified essential hypertension Essential hypertension ([facility]) Unspecified essential hypertension Anxiety disorder, unspecified Anxiety state ([facility]) Anxiety state, unspecified Anxiety and depression ([facility]) Edema, lower extremity Allergic rhinitis, unspecified Allergic rhinitis Allergic rhinitis, cause unspecified Gastro-esophageal reflux disease without esophagitis Insomnia, unspecified MARCK (obstructive sleep apnea) Obstructive sleep apnea (adult) (pediatric) Primary insomnia Persistent disorder of initiating or maintaining sleep Gastroesophageal reflux disease, unspecified whether esophagitis present Lower extremity edema Edema BMI 50.0-59.9, adult ([facility] Pre-diabetes Other abnormal glucose Anal or rectal pain- Primary BMI 50.0-59.9, adult ([facility]) Chronic rectal pain Pre-diabetes- Primary Other abnormal glucose MARCK (obstructive sleep apnea) Obstructive sleep apnea (adult) (pediatric) Primary hypertension ([facility]) Unspecified essential hypertension Edema, lower extremity BMI 50.0-59.9, adult ([facility]) Anxiety and depression ([facility]) Essential (primary) hypertension ([facility]) Unspecified essential hypertension Essential hypertension ([facility]) Unspecified essential hypertension Anxiety disorder, unspecified Anxiety state ([facility]) Anxiety state, unspecified Gastro-esophageal reflux disease without esophagitis Insomnia, unspecified Primary hypertension ([facility])- Primary Unspecified essential hypertension Secondary pulmonary arterial hypertension ([facility]) Morbid (severe) obesity due to excess calories ([facility]) Body mass index (BMI) 50.0-59.9, adult ([facility]) Primary insomnia Persistent disorder of initiating or maintaining sleep MARCK (obstructive sleep apnea) Obstructive sleep apnea (adult) (pediatric) Gastroesophageal reflux disease, unspecified whether esophagitis present Edema, lower extremity Pre-diabetes Other abnormal glucose Anxiety and depression ([facility] [place]) Metabolic syndrome Dysmetabolic Syndrome X Mixed hyperlipidemia ([facility]) Mixed hyperlipidemia Breast abscess- Primary Inflammatory disease of breast Mucocele of mouth- Primary Other and unspecified diseases of the oral soft tissues documented in this encounter [facility] HealthcareEvaluation note* Diagnosis Anxiety and depression- Primary Screening mammogram for breast cancer BMI 50.0-59.9, adult ([facility]) Lower extremity edema Edema Primary hypertension Unspecified essential hypertension Mixed hyperlipidemia Mixed hyperlipidemia Abnormal weight gain Anxiety and depression- Primary Family history of premature CAD Family history of ischemic heart disease Primary hypertension Unspecified essential hypertension MARCK (obstructive sleep apnea) Obstructive sleep apnea (adult) (pediatric) Pre-diabetes Other abnormal glucose BMI 50.0-59.9, adult ([facility]) Primary hypertension- Primary Unspecified essential hypertension Essential [...] Lower extremity edema Edema BMI 50.0-59.9, adult ([facility]) Pre-diabetes Other abnormal glucose Anal or rectal pain- Primary BMI 50.0-59.9, adult ([facility]) Chronic rectal pain Pre-diabetes- Primary Other abnormal glucose MARCK (obstructive sleep apnea) Obstructive sleep apnea (adult) (pediatric) Primary hypertension Unspecified essential hypertension Edema, lower extremity BMI 50.0-59.9, adult ([facility]) Anxiety and depression Essential (primary) hypertension Unspecified essential hypertension Essential hypertension Unspecified essential hypertension Anxiety disorder, unspecified Anxiety state Anxiety state, unspecified Gastro-esophageal reflux disease without esophagitis Insomnia, unspecified Primary hypertension- Primary Unspecified essential hypertension Secondary pulmonary arterial hypertension (HCC) Morbid (severe) obesity due to excess calories ([facility]) Body mass index (BMI) 50.0-59.9, adult ([facility]) Primary insomnia Persistent disorder of initiating or [...] oral soft tissues documented in this encounter [facility] HealthcareEvaluation note* Diagnosis Anxiety and depression- Primary Screening mammogram for breast cancer BMI 50.0-59.9, adult ([facility]) Lower extremity edema Edema Primary hypertension Unspecified essential hypertension Mixed hyperlipidemia Mixed hyperlipidemia Abnormal weight gain Anxiety and depression- Primary Family history of premature CAD Family history of ischemic heart disease Primary hypertension Unspecified essential hypertension MARCK (obstructive sleep apnea) Obstructive sleep apnea (adult) (pediatric) Pre-diabetes Other abnormal glucose BMI 50.0-59.9, adult ([facility]) Primary hypertension- Primary Unspecified essential hypertension Essential [...] Lower extremity edema Edema BMI 50.0-59.9, adult ([facility]) Pre-diabetes Other abnormal glucose Anal or rectal pain- Primary BMI 50.0-59.9, adult ([facility]) Chronic rectal pain Pre-diabetes- Primary Other abnormal glucose MARCK (obstructive sleep apnea) Obstructive sleep apnea (adult) (pediatric) Primary hypertension Unspecified essential hypertension Edema, lower extremity BMI 50.0-59.9, adult ([facility]) Anxiety and depression Essential (primary) hypertension Unspecified essential hypertension Essential hypertension Unspecified essential hypertension Anxiety disorder, unspecified Anxiety state Anxiety state, unspecified Gastro-esophageal reflux disease without esophagitis Insomnia, unspecified Primary hypertension- Primary Unspecified essential hypertension Secondary pulmonary arterial hypertension (HCC) Morbid (severe) obesity due to excess calories ([facility]) Body mass index (BMI) 50.0-59.9, adult ([facility]) Primary insomnia Persistent disorder of initiating or [...] Primary Mixed hyperlipidemia documented in this encounter [facility] HealthcareEvaluation note* Diagnosis Anxiety and depression- Primary Screening mammogram for breast cancer BMI 50.0-59.9, adult ([facility]) Lower extremity edema Edema Primary hypertension Unspecified essential hypertension Mixed hyperlipidemia Mixed hyperlipidemia Abnormal weight gain Anxiety and depression- Primary Family history of premature CAD Family history of ischemic heart disease Primary hypertension Unspecified essential hypertension MARCK (obstructive sleep apnea) Obstructive sleep apnea (adult) (pediatric) Pre-diabetes Other abnormal glucose BMI 50.0-59.9, adult ([facility]) Primary hypertension- Primary Unspecified essential hypertension Essential [...] Lower extremity edema Edema BMI 50.0-59.9, adult ([facility]) Pre-diabetes Other abnormal glucose Pre-diabetes- Primary Other abnormal glucose MARCK (obstructive sleep apnea) Obstructive sleep apnea (adult) (pediatric) Primary hypertension Unspecified essential hypertension Edema, lower extremity BMI 50.0-59.9, adult ([facility]) Anxiety and depression Essential (primary) hypertension Unspecified essential hypertension Essential hypertension Unspecified essential hypertension Anxiety disorder, unspecified Anxiety state Anxiety state, unspecified Gastro-esophageal reflux disease without esophagitis Insomnia, unspecified Primary hypertension- Primary Unspecified essential hypertension Secondary pulmonary arterial hypertension (HCC) Morbid (severe) obesity due to excess calories ([facility]) Body mass index (BMI) 50.0-59.9, adult ([facility]) Primary insomnia Persistent disorder of initiating or [...] Morbid (severe) obesity due to excess calories ([facility]) Mixed hyperlipidemia Mixed hyperlipidemia Primary insomnia Persistent disorder of initiating or maintaining sleep documented in this encounter [facility] HealthcareEvaluation noteNo assessment information availableSt. 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 [address] [place] [address] Jonatan Laird, [address] [place] [phone] Referral IDStatusReasonStart DateExpiration DateVisits RequestedVisits [id number] Review Specialty Services Required * Consultation (Routine) - Pending ReviewSpecialtyDiagnoses / ProceduresReferred By ContactReferred To ContactGeneral Surgery Diagnoses Anal or rectal pain Procedures LA OFFICE/OUTPATIENT NEW HIGH MDM 60 MINUTES Aida Chaves NP [address] [place] [address] Jonatan Laird, [address] [place] [phone] Referral IDStatusReasonStart DateExpiration DateVisits RequestedVisits [id number] Review Specialty Services Required AISSATOU Gary for referral (narrative)No reason for referral information availableTrihealth [facility] Work Phone: Summary Purpose Family [...] 9: 54am Hypertension, essential April 09 9:54am Chief Complaint Admit Date fpg pre emp pillars February 23, 2025 12 :39pm leg swelling and chest tightness April 09, 2025 9:54am 2M April 25, 2025 1 0:09am Reason for Visit Admit Date Bilateral lower extremity edema April 09, 2025 9:54am Chest pain April 09, 2025 9: 54am JESUS (generalized anxiety disorder) Octob er 2024 9:54am Hypertension, essential April 09 9:54am Major depressive disorder, recurrent epi sode, mild April 09, 2025 9:54am Morbid obesity due to excess calories Oc tober 2024 9:54am MARCK (obstructive sleep apnea) April 9:54am Anemia April 25, 2025 1 0:09am Bilateral lower extremity edema April 25, 2025 10:09am Chest pain April 25, 2025 1 0:09am JESUS (generalized anxiety disorder) Octob er 2024 10:09am Hypertension, essential April 25 10:09am Major depressive disorder, recurrent epi sode, mild April 25, 2025 10:09am Morbid obesity due to excess calories Oc tober 2024 10:09am MARCK (obstructive sleep apnea) April 252024 10:09am Additional Source Comments INFORMATION SOURCE (unrecogn ized section and content) DATE CREATED AUTHOR 12/11/2022 [facility] DATE CREATED AUTHOR AUTHOR'S ORGANIZ ATION 02/13/2025 [facility] DATE CREATED AUTHOR AUTHOR'S ORGANIZ ATION 03/14/2025 [facility] Care Teams (unrecognized sec tion and content) Team MemberRelationshipSpecialtyStart DateEnd Date Jef Wooten MD [address] [place] [address] PCP - GeneralFamily Medicine07/28/23Team MemberRelationshipSpecialtyStart DateEnd Date Jef Wooten MD [address] [place] [address] PCP - GeneralFamily Medicine07/28/23Team MemberRelationshipSpecialtyStart DateEnd Date Jef Wooten MD [address] [place] [address] PCP - GeneralFamily Medicine07/28/23Team MemberRelationshipSpecialtyStart DateEnd Date Jef Wooten MD [address] [place] [address] PCP - GeneralFamily Medicine07/28/23Team MemberRelationshipSpecialtyStart DateEnd Date Jef Wooten MD [address] [place] [address] PCP - GeneralFamily Medicine07/28/23Team MemberRelationshipSpecialtyStart DateEnd Date Jef Wooten MD [address] [place] [address] PCP - GeneralFamily Medicine07/28/23Team MemberRelationshipSpecialtyStart DateEnd Date Jef Wooten MD [address] [place] [address] PCP - GeneralFamily Medicine07/28/23Team MemberRelationshipSpecialtyStart DateEnd Date Jef Wooten MD [address] [place] [address] PCP - GeneralFamily Medicine07/28/23Team MemberRelationshipSpecialtyStart DateEnd Date Jef Wooten MD [address] [place] [address] PCP - GeneralFamily Medicine07/28/23Team MemberRelationshipSpecialtyStart DateEnd Date Jef Wooten MD [address] [place] [address] PCP - GeneralFamily Medicine07/28/23Team MemberRelationshipSpecialtyStart DateEnd Date Jef Wooten MD [address] [place] [address] PCP - GeneralFamily Medicine07/28/23Team MemberRelationshipSpecialtyStart DateEnd Date Jef Wooten MD [address] [place] [address] PCP - GeneralFamily Medicine07/28/23Team MemberRelationshipSpecialtyStart DateEnd Date Jef Wooten MD [address] [place] [address] PCP - GeneralFamily Medicine07/28/23Team MemberRelationshipSpecialtyStart DateEnd Date eJf Wooten MD [address] [place] [address] PCP - GeneralFamily Medicine07/28/23Team MemberRelationshipSpecialtyStart DateEnd Date Jef Wooten MD [address] [place] [address] PCP - GeneralFamily Medicine07/28/23Team MemberRelationshipSpecialtyStart DateEnd Date Jef Wooten MD [address] [place] [address] PCP - GeneralFamily Medicine07/28/23Team MemberRelationshipSpecialtyStart DateEnd Date Jef Wooten MD [address] [place] [address] PCP - GeneralFamily Medicine07/28/23Team MemberRelationshipSpecialtyStart DateEnd Date Jef Wooten MD [address] [place] [address] PCP - GeneralFamily Medicine07/28/23Team MemberRelationshipSpecialtyStart DateEnd Date Jef Wooten MD [address] [place] [phone] PCP - GeneralFamily Medicine07/28/23Team MemberRelationshipSpecialtyStart DateEnd Date Jef Wooten MD [address] [place] [address] PCP - GeneralFamily Medicine07/28/23Team MemberRelationshipSpecialtyStart DateEnd Date Jef Wooten MD [address] [place] [address] PCP - GeneralFamily Medicine07/28/23 Team Status: Active Member Role Status Dates PHYSICIAN NO FAMILY Primary Care Provider Active Team Status: Inactive Member Role Status Dates PHYSICIAN NO FAMILY Primary Care Provider Active Start: February 23, 2025 End: February 23, 2025Edela Newell Jr DOAttending ProviderActiveStart: February 23, 2025 End: February 23, 2025 Team Status: Active Member Role Status Dates Aida Chaves , TRAFFIC SURVEY TECHNICIAN-C Primary Care Provider Active Team Status: Inactive Member Role Status Dates Aida Chaves , TRAFFIC SURVEY TECHNICIAN-C Primary Care Provider Active Start: April 09, 2025 End: April 09, 2025Aida Chaves , TRAFFIC SURVEY TECHNICIAN-CAttending ProviderActiveStart: April 09, 2025 End: April 09, 2025 Team Status: Active Member Role/Relationship Status Dates Aida Chaves TRAFFIC SURVEY TECHNICIAN-C Primary Care Provider Active Team Status: Inactive Member Role/Relationship Status Dates PHYSICIAN NO FAMILY Primary Care Provider Active Start: February 23, 2025 End: February 23, 2025Edela Newell Jr, DOAttending ProviderActiveStart: February 23, 2025 End: February 23, 2025 Team Status: Inactive Member Role/Relationship Status Dates Aida Chaves , TRAFFIC SURVEY TECHNICIAN-C Primary Care Provider Active Start: April 09, 2025 End: April 09, 2025Aida Chaves , TRAFFIC SURVEY TECHNICIAN-CAttending ProviderActiveStart: April 09, 2025 End: April 09, 2025 Team Status: Inactive Member Role/Relationship Status Dates Aida Chaves , TRAFFIC SURVEY TECHNICIAN-C Primary Care Provider Active Start: April 25, 2025 End: April 25, 2025Aida Chaves , TRAFFIC SURVEY TECHNICIAN-CAttending ProviderActiveStart: April 25, 2025 End: April 25, 2025Team MemberRelationshipSpecialtyStart DateEnd Date Jef Wooten MD PCP - GeneralFamily Medicine07/28/23 Reason for Visit (unrecogniz ed section and content) ReasonCommentsHemorrhoidsPt presents today for hemorrhoids. She states that [...] taking a stool softener to help with constipation.ReasonComments Med RefillReasonCommentsWell Women VisitReasonOnset DateCommentsMed Refill 11/30/2024ReasonCommentsDiabetes Goals (unrecognized section and content) Goals may be documented in a n alternate sectionGoals may be documented in an alternate sectionGoals may be documented in an [...] BE BASED ON THE PRIMARY CLINICAL RECORDS. [employer] provides no warranty or guarantee of the accuracy or completeness of information in this document.
--- NOTE | 2025-05-22 09:08 | PC.NURSE ---
Routine stress test attempted, but not able to achieve 85% due to leg weakness, chest discomfort, dyspnea. Pt was assisted to the side of the bed until symptoms resolved.
--- NOTE | 2025-05-23 12:33 | PM.STRESS ---
Stress Test Stress Test Allergies Allergy/AdvReac Type Severity Reaction Status Date / Time bee venom protein (honey bee) Allergy swelling Verified 02/25/24 11:51 metronidazole (From Flagyl) Allergy Nausea Verified 02/25/24 11:51 Penicillins Allergy Unknown Verified 02/25/24 11:51 Sulfa (Sulfonamide Allergy Rash Verified 02/25/24 11:51 Antibiotics) Requesting physician: Aida Chaves Procedure: Routine treadmill exercise stress test General Information: Reason for Stress Test: [Chest pain, shortness of breath] Cardiac History and Risk Factors: [Family history of coronary artery disease, hypertension, dyslipidemia] Resting 12 - Lead Electrocardiogram: Normal stress test Normal ECG Stress Test: Protocol: [Que protocol; the patient exercised for 3 minutes and 56 seconds reaching stage II of the Que protocol and achieving 6.50 METS. Resting heart rate was 64 bpm reaching a peak of 129 bpm which is 73% of maximum predicted heart rate. Resting blood pressure was 118/88 with a peak blood pressure of 152/98. The test was terminated due to inability to reach target heart rate.] Exercise Capacity: [N/A] Blood Pressure Response: [Appropriate] Rhythm: [Sinus] ST - Response: [No ST changes] Patient Response: [No chest pain] Interpretation: 1. Submaximal, exercise treadmill stress test due to inability to achieve 85% of maximum predicted heart rate 2. Consider alternate modalities for testing (e.g. pharmacological stress testing versus coronary CTA)
== END 2025-05-22 07:47 | disposition home or self-care (01) ==
LOC: CARD 07:46
PROVIDERS: PCP Nurse Practitioner; Visit Provider Nurse Practitioner
DX: R07.9 Chest pain, unspecified (principal); Z82.49 Family history of ischemic heart disease and other diseases of the circulatory system; I27.21 Secondary pulmonary arterial hypertension; I51.89 Other ill-defined heart diseases; I36.1 Nonrheumatic tricuspid (valve) insufficiency
CPT/HCPCS: 93017